=== PATIENT | male | born 1940 | race Caucasian/White ===

== ENCOUNTER 2020-01-21 10:06 | Day surgery (SDC) | payer MEDICARE, SELFPAY ==
[2020-01-14 12:08] VITALS: BMI 28.7
--- NOTE | 2020-01-20 13:43 | P.CONAN_ITS ---
Documented by User: Maureen Michaels 01/20/20 13:53 HPI - Anesthesia Eval Consult details Narrative: 79yo M for Colonoscopy PMFSH Past Medical History Medical History Anemia Aortic valvular disease Arthritis Atherosclerotic cardiovascular disease CHF (congestive heart failure) Chronic kidney disease Diabetes NAVA (dyspnea on exertion) Elevated cholesterol HTN (hypertension) Pacemaker Pulmonary hypertension Rhabdomyolysis due to statin therapy Surgical History Surgical History Hx of colonoscopy S/P excision of lipoma Status cardiac pacemaker Social History Social History Smoking Status: Former smoker Smoking Quit Date: 1994 Use of substances other than those prescribed or required for medical reasons: No Advance Directives: No Advance Directives Information Provided: Yes Advance Directives on File: No Recently lost weight without trying: No Meds Allergies Allergy/AdvReac Type Severity Reaction Status Date / Time amlodipine Allergy Unknown renal Verified 01/14/20 11:58 insuff in combo w/ statin rx carvedilol [From COREG] Allergy Unknown SHORTNESS Unverified 01/01/20 16:41 OF BREATH cephalexin [From KEFLEX] Allergy Unknown ANGIO EDEMA Unverified 01/01/20 16:41 lisinopril [LISINOPRIL] Allergy Unknown FACIAL Unverified 01/01/20 16:41 EDEMA simvastatin Allergy Unknown renal Verified 01/14/20 11:58 insufficiency Home Medications Medication Instructions Recorded Confirmed Type aspirin [Aspir-81] 81 mg PO DAILY 01/14/20 01/14/20 History atorvastatin 10 mg PO BEDTIME 01/14/20 01/14/20 History diltiazem HCl 120 mg PO BID 01/14/20 01/14/20 History doxazosin 4 mg PO DAILY 01/14/20 01/14/20 History epoetin donis [Procrit] 3,000 unit SUBCUT Q4W 01/14/20 01/14/20 History ferrous sulfate [FeroSul] 325 mg PO DAILY 01/14/20 01/14/20 History furosemide 40 mg PO BID 01/14/20 01/14/20 History hydralazine 50 mg PO BID 01/14/20 01/21/20 History labetalol 200 mg PO BID 01/14/20 01/21/20 History losartan 100 mg PO DAILY 01/14/20 01/14/20 History multivitamin 1 tab PO DAILY 01/14/20 01/14/20 History Exam Exam Date and Time: January 20, 2020 1343 Height,Weight and Vital Signs: Height 5 ft 6 in Weight 80.739 kg Pertinent Lab Results Pertinent Lab Results: Laboratory Tests 11/24/19 10:10 Sodium 141 Laboratory Tests 11/24/19 12/24/19 10:10 11:18 WBC 6.5 Hgb 8.3 L Hct 26.7 L Plt Count 202 Potassium 4.4 D Chloride 106 Bicarbonate 26 Anion Gap 13 BUN 122 H* D Creatinine 3.60 H Est GFR (Non-Af Amer) 17 Narrative Narrative: EKG 11/11/19 SB@51 with V pacing per cardiol note Pacer interro 11/19/19: DDDR,-50 AP 25%, 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% ECHO : LVEF 40-45%, Gr 2 DD, mon increased RV cavity, mild , mild MR, mild TR, severe pulm htn Stress 2019: inferior/inferoseptal infarct = med managed Assessment and Plan Assessment Anesthesia Assessment: Chart Reviewed Documented by User: Mik Hernandez 01/21/20 11:03 [facility] Past Medical History Medical History Anemia Aortic valvular disease Arthritis Atherosclerotic cardiovascular disease CHF (congestive heart failure) Chronic kidney disease Diabetes NAVA (dyspnea on exertion) Elevated cholesterol HTN (hypertension) Pacemaker Pulmonary hypertension Rhabdomyolysis due to statin therapy Surgical History Surgical History Hx of colonoscopy S/P excision of lipoma Status cardiac pacemaker Social History Social History Smoking Status: Former smoker Smoking Quit Date: 1994 Use of substances other than those prescribed or required for medical reasons: No Advance Directives: No Advance Directives Information Provided: Yes Advance Directives on File: No Recently lost weight without trying: No Meds Allergies Allergy/AdvReac Type Severity Reaction Status Date / Time amlodipine Allergy Unknown renal Verified 01/14/20 11:58 insuff in combo w/ statin rx carvedilol [From COREG] Allergy Unknown SHORTNESS Unverified 01/01/20 16:41 OF BREATH cephalexin [From KEFLEX] Allergy Unknown ANGIO EDEMA Unverified 01/01/20 16:41 lisinopril [LISINOPRIL] Allergy Unknown FACIAL Unverified 01/01/20 16:41 EDEMA simvastatin Allergy Unknown renal Verified 01/14/20 11:58 insufficiency Home Medications Medication Instructions Recorded Confirmed Type aspirin [Aspir-81] 81 mg PO DAILY 01/14/20 01/14/20 History atorvastatin 10 mg PO BEDTIME 01/14/20 01/14/20 History diltiazem HCl 120 mg PO BID 01/14/20 01/14/20 History doxazosin 4 mg PO DAILY 01/14/20 01/14/20 History epoetin donis [Procrit] 3,000 unit SUBCUT Q4W 01/14/20 01/14/20 History ferrous sulfate [FeroSul] 325 mg PO DAILY 01/14/20 01/14/20 History furosemide 40 mg PO BID 01/14/20 01/14/20 History hydralazine 50 mg PO BID 01/14/20 01/21/20 History labetalol 200 mg PO BID 01/14/20 01/21/20 History losartan 100 mg PO DAILY 01/14/20 01/14/20 History multivitamin 1 tab PO DAILY 01/14/20 01/14/20 History Exam Airway Mallampati Class: II TM Dist: >3cm Neck ROM: Full
[2020-01-21 10:31] VITALS: BP 151/56; PULSE 54; RESP 18; TEMP 36.2; O2SAT 100
[2020-01-21] MEDS: 0.9 % Sodium Chloride 1,000 ML 50 ML IVCONT (11:01)
--- NOTE | 2020-01-21 11:01 | P.CONAN_ITS ---
[facility] Past Medical History Medical History Anemia Aortic valvular disease Arthritis Atherosclerotic cardiovascular disease CHF (congestive heart failure) Chronic kidney disease Diabetes NAVA (dyspnea on exertion) Elevated cholesterol HTN (hypertension) Pacemaker Pulmonary hypertension Rhabdomyolysis due to statin therapy Surgical History Surgical History Hx of colonoscopy S/P excision of lipoma Status cardiac pacemaker Social History Social History Smoking Status: Former smoker Smoking Quit Date: 1994 Use of substances other than those prescribed or required for medical reasons: No Advance Directives: No Advance Directives Information Provided: Yes Advance Directives on File: No Recently lost weight without trying: No Meds Allergies Allergy/AdvReac Type Severity Reaction Status Date / Time amlodipine Allergy Unknown renal Verified 01/14/20 11:58 insuff in combo w/ statin rx carvedilol [From COREG] Allergy Unknown SHORTNESS Unverified 01/01/20 16:41 OF BREATH cephalexin [From KEFLEX] Allergy Unknown ANGIO EDEMA Unverified 01/01/20 16:41 lisinopril [LISINOPRIL] Allergy Unknown FACIAL Unverified 01/01/20 16:41 EDEMA simvastatin Allergy Unknown renal Verified 01/14/20 11:58 insufficiency Home Medications Medication Instructions Recorded Confirmed Type aspirin [Aspir-81] 81 mg PO DAILY 01/14/20 01/14/20 History atorvastatin 10 mg PO BEDTIME 01/14/20 01/14/20 History diltiazem HCl 120 mg PO BID 01/14/20 01/14/20 History doxazosin 4 mg PO DAILY 01/14/20 01/14/20 History epoetin donis [Procrit] 3,000 unit SUBCUT Q4W 01/14/20 01/14/20 History ferrous sulfate [FeroSul] 325 mg PO DAILY 01/14/20 01/14/20 History furosemide 40 mg PO BID 01/14/20 01/14/20 History hydralazine 50 mg PO BID 01/14/20 01/21/20 History labetalol 200 mg PO BID 01/14/20 01/21/20 History losartan 100 mg PO DAILY 01/14/20 01/14/20 History multivitamin 1 tab PO DAILY 01/14/20 01/14/20 History Exam Exam Date and Time: January 21, 2020 1101 Height,Weight and Vital Signs: Height 5 ft 6 in Weight 80.739 kg Last Vital Signs Temp 97.1 F 01/21/20 10:31 Pulse 54 01/21/20 10:31 Resp 18 01/21/20 10:31 BP 151/56 H 01/21/20 10:31 Pulse Ox 100 01/21/20 10:31 Airway Mallampati Class: II TM Dist: >3cm Neck ROM: Full
[2020-01-21 11:05] LABS: Glucose, Whole Blood 84 mg/dL (60-115)
[2020-01-21 12:27] VITALS: BP 122/54; PULSE 60; RESP 16; TEMP 36.4; O2SAT 99
--- NOTE | 2020-01-21 12:37 | PM.OP ---
Brief Operative Note Date of procedure: 01/21/20 Pre-op diagnosis: Screening Post-op diagnosis: other (Colon polyps, Diverticulosis, Internal hemorrhoids) Procedure: Colonoscopy to cecum and TI with biopsies and placement of a single resolution clip on the appendiceal orifice polyp site. Surgeon: Deven Mccallum Anesthesia: MAC Pathology: other (A. Appendiceal orifice polyp B. Polyp at 30cm.) Condition: stable Disposition: PACU
[2020-01-21 12:42] VITALS: BP 137/60; PULSE 57; RESP 13; O2SAT 100
[2020-01-21 12:56] VITALS: BP 143/65; PULSE 57; RESP 13; TEMP 36.5; O2SAT 98
--- NOTE | 2020-01-21 13:11 | OP_ITS ---
SURGEON: Deven Mccallum MD PREOPERATIVE DIAGNOSIS: POSTOPERATIVE DIAGNOSIS: PROCEDURE PERFORMED: Colonoscopy to the cecum and terminal ileum with biopsies, and placement of a single resolution clip. Full consent has been obtained from him for this, including risks of bleeding and perforation. ESTIMATED BLOOD LOSS: COMPLICATIONS: ANESTHESIA: Monitored anesthesia care. ASSISTANTS: SPECIMENS: PREOPERATIVE DIAGNOSES: Colorectal cancer screening and personal history of tubular adenoma of the colon. POSTOPERATIVE DIAGNOSES: Colorectal cancer screening and personal history of tubular adenoma of the colon, colon polyps, diverticulosis and internal hemorrhoids. DESCRIPTION OF PROCEDURE: The patient was placed in the left lateral decubitus position. The digital rectal exam revealed no abnormalities. The 115 network disks video pediatric colonoscope was entered into the rectum and advanced easily to the cecum. Once in the cecum, I did identify cecal pouch with appendiceal orifice and a normal-appearing ileocecal valve. The terminal ileum was cannulated and appeared normal. The scope was withdrawn back in the colon. The entire cecum was well visualized. Initially, the appendiceal orifice appeared very normal. However, with some peristalsis, a polypoid lesion came out of the appendiceal orifice. This appeared to be grossly adenomatous. It was somewhat soft and friable. In manipulating it with the cold biopsy forceps, I was able to pull it out of the appendiceal orifice somewhat and visualized what appeared to be a stalk. I initially obtained several biopsies from the polyp itself, which led to a fair amount of persistent oozing of blood. At that point, even though at times I was able to visualize a stalk coming out of the appendiceal orifice, I did not feel comfortable in snaring it and removing it given what I thought would be an increased risk of a perforation in that area. As such, I did place a single clip at the base of the head of the polyp on the stalk itself, as best I could tell in visualizing it. Once the clip was applied, all the bleeding stopped. At that point, I did not obtain any further biopsies and opted not to snare it given the location and until we see what type of tissue we are dealing with. The remainder of the cecum appeared normal. The scope was then slowly withdrawn assessing all mucosal surfaces carefully. Preparation was excellent. In the transverse colon were the previously placed submucosal ink markings, but without any sign of polypoid tissue in that area. At 30 cm, was a flat approximately 3 or 4 mm polyp, which was biopsied and completely removed with cold biopsy forceps. There was a moderate amount of sigmoid diverticulosis. In the rectum, scope was retroflexed visualizing internal hemorrhoids, but no other pathology. The rectal mucosa appeared normal. The scope was straightened out and withdrawn from the patient. He tolerated the procedure well and was returned to the recovery area in stable condition. IMPRESSION: 1. Appendiceal orifice polyp, status post biopsy and placement of 1 resolution clip. 2. Colon polyp, status post biopsy and removal. 3. Diverticulosis. 4. Internal hemorrhoids. PLAN: The results of the biopsies will be checked. In regard to the appendiceal orifice polyp, we will have to decide, if indeed it is adenomatous tissue, how best to further assess this and remove it. Again, I am somewhat hesitant to remove it endoscopically given the potential for perforation, but now that a clip is placed and we might be able to do that. The other option, particularly if there is any worrisome pathology noted such as high-grade dysplasia or obviously carcinoma, would be to have a limited surgical resection. I advised him not to use any aspirin nor iron for 1 more week. He will be followed up in the office once we have the results of the pathology. This has been discussed with him. MD TARA Garsia/SHRUTHI / [id number] MTDD
--- NOTE | 2020-01-21 14:10 | HO.POSTANES ---
Post Anesthesia Evaluation Post Anesthesia Evaluation Vital Signs: Vital Signs Temp Pulse Resp BP Pulse Ox 01/21/20 12:56 97.7 F 57 13 143/65 H 98 01/21/20 12:42 57 13 137/60 100 01/21/20 12:27 97.5 F 60 16 122/54 L 99 01/21/20 10:31 97.1 F 54 18 151/56 H 100 Anesthesia: Monitored Mental Status: Awake Pain Control: Satisfactory Nausea/Vomiting: None Hydration: Adequate Anesthesia-Related Issues: No Anes. Related Issues
== END 2020-01-21 13:45 | disposition home or self-care (01) ==
PROVIDERS: PCP Family Medicine; Visit Provider Internal Medicine
PROC: 0DJD8ZZ Inspection of Lower Intestinal Tract, Via Natural or Artificial Opening Endoscopic (ICD-10-PCS; CPT 45378; principal; 2020-01-21 11:40)
DX: Z12.11 Encounter for screening for malignant neoplasm of colon (principal); Z86.010 Personal history of colon polyps; D12.1 Benign neoplasm of appendix; K63.5 Polyp of colon; K57.30 Diverticulosis of large intestine without perforation or abscess without bleeding; K64.8 Other hemorrhoids; E11.22 Type 2 diabetes mellitus with diabetic chronic kidney disease; I13.0 Hypertensive heart and chronic kidney disease with heart failure and stage 1 through stage 4 chronic kidney disease, or unspecified chronic kidney disease; N18.9 Chronic kidney disease, unspecified; I50.9 Heart failure, unspecified; D64.9 Anemia, unspecified; Z95.0 Presence of cardiac pacemaker; Z87.891 Personal history of nicotine dependence; Z79.899 Other long term (current) drug therapy; Z79.82 Long term (current) use of aspirin; Z88.8 Allergy status to other drugs, medicaments and biological substances
CPT/HCPCS: 45380; 82947; 88305

== ENCOUNTER 2020-02-05 11:12 | Outpatient (REF) | payer MEDICARE, SELFPAY ==
[2020-02-05 13:58] LABS: Basophils Percent Auto 0.5 % (0-2); Eosinophils Absolute Auto 0.1 X10*3/uL (0.0-0.4); Eosinophils Percent Auto 1.7 % (0-4); Hematocrit 26.8 % (42-52); Hemoglobin 8.4 g/dl (14.0-18.0); Imm Gran Abs Auto 0.03 X10*3/uL (0.00-0.03); Imm Gran Pct Auto 0.5 % (0.0-0.4); Lymphocytes Absolute Auto 0.3 X10*3/uL (1.2-4.9); Lymphocytes Percent Auto 5.2 % (20-40); MANUAL DIFF FLAG SCAN; Mean Corpuscular HGB Conc 31.3 g/dl (31.0-36.0); Mean Corpuscular Hemoglobin 28.7 pg (27.0-33.0); Mean Corpuscular Volume 91.5 fL (80-98); Mean Platelet Volume 11.4 fL (9.4-12.4); Monocytes Absolute Auto 0.6 X10*3/uL (0.1-1.2); Monocytes Percent Auto 10.7 % (2-11); Neutrophils Absolute Auto 4.9 X10*3/uL (2.0-8.3); Neutrophils Percent Auto 81.4 % (45-73); Platelet Count 179 X10*3/uL (160-400); Red Blood Count 2.93 X10*6/uL (4.60-5.80); Red Cell Distribution Width 16.4 % (11.0-16.0); SCAN SMEAR FLAG 1
[2020-02-05 14:12] LABS: Anion Gap 15 (12-20); Carbon Dioxide 23 mmol/L (22-29); Chloride 107 mmol/L (96-108); Potassium 4.1 mmol/l (3.3-5.1); Sodium 141 mmol/L (135-145)
[2020-02-05 14:25] LABS: SLIDE REVIEW VERIFIED
[2020-02-05 14:43] LABS: Blood Urea Nitrogen 123 mg/dL (9-16); Estimated Glomerular Filt Rate 14
== END 2020-02-05 11:13 | disposition home or self-care (01) ==
LOC: HO.10HDL 11:12
PROVIDERS: Visit Provider Internal Medicine Hypertension Specialist
DX: I13.10 Hypertensive heart and chronic kidney disease without heart failure, with stage 1 through stage 4 chronic kidney disease, or unspecified chronic kidney disease (principal); N18.9 Chronic kidney disease, unspecified; D63.1 Anemia in chronic kidney disease
CPT/HCPCS: 36415; 80051; 82565; 84520; 85025

== ENCOUNTER 2020-03-15 10:35 | Outpatient (REF) | payer MEDICARE, SELFPAY ==
[2020-03-15 13:48] LABS: Basophils Absolute Auto 0.1 X10*3/uL (0.0-0.2); Eosinophils Absolute Auto 0.2 X10*3/uL (0.0-0.4); Eosinophils Percent Auto 2.9 % (0-4); Hematocrit 27.5 % (42-52); Hemoglobin 8.6 g/dl (14.0-18.0); Imm Gran Abs Auto 0.02 X10*3/uL (0.00-0.03); Imm Gran Pct Auto 0.3 % (0.0-0.4); Lymphocytes Absolute Auto 0.3 X10*3/uL (1.2-4.9); Lymphocytes Percent Auto 5.1 % (20-40); MANUAL DIFF FLAG SCAN; Mean Corpuscular HGB Conc 31.3 g/dl (31.0-36.0); Mean Corpuscular Hemoglobin 28.9 pg (27.0-33.0); Mean Corpuscular Volume 92.3 fL (80-98); Mean Platelet Volume 11.1 fL (9.4-12.4); Monocytes Absolute Auto 0.6 X10*3/uL (0.1-1.2); Monocytes Percent Auto 9.1 % (2-11); Neutrophils Absolute Auto 5.1 X10*3/uL (2.0-8.3); Neutrophils Percent Auto 81.6 % (45-73); Platelet Count 160 X10*3/uL (160-400); Red Blood Count 2.98 X10*6/uL (4.60-5.80); Red Cell Distribution Width 17.2 % (11.0-16.0); SCAN SMEAR FLAG 1; White Blood Count 6.3 X10*3/uL (4.8-10.8)
[2020-03-15 14:10] LABS: SLIDE REVIEW VERIFIED
[2020-03-15 14:58] LABS: Anion Gap 18 (12-20); Calcium 8.3 mg/dL (8.4-10.2); Carbon Dioxide 23 mmol/L (22-29); Chloride 105 mmol/L (96-108); Potassium 4.7 mmol/l (3.3-5.1); Sodium 141 mmol/L (135-145)
[2020-03-15 15:14] LABS: Blood Urea Nitrogen 125 mg/dL (9-16); Estimated Glomerular Filt Rate 12
== END 2020-03-15 10:36 | disposition home or self-care (01) ==
LOC: HO.10HDL 10:35
PROVIDERS: Visit Provider Internal Medicine Hypertension Specialist
DX: I13.10 Hypertensive heart and chronic kidney disease without heart failure, with stage 1 through stage 4 chronic kidney disease, or unspecified chronic kidney disease (principal); E10.21 Type 1 diabetes mellitus with diabetic nephropathy; I12.9 Hypertensive chronic kidney disease with stage 1 through stage 4 chronic kidney disease, or unspecified chronic kidney disease; D63.1 Anemia in chronic kidney disease
CPT/HCPCS: 36415; 80051; 82310; 82565; 84520; 85025

== ENCOUNTER → 2020-04-20 14:35 | Outpatient (BNVA) | payer MEDICARE, SELFPAY | PROVIDERS: PCP Family Medicine; Visit Provider Surgery Vascular Surgery | DX: E11.22 Type 2 diabetes mellitus with diabetic chronic kidney disease (principal); I12.9 Hypertensive chronic kidney disease with stage 1 through stage 4 chronic kidney disease, or unspecified chronic kidney disease; N18.4 Chronic kidney disease, stage 4 (severe) | CPT/HCPCS: 99202 ==

== ENCOUNTER → 2020-04-21 11:05 | Outpatient (REF) | payer MEDICARE, SELFPAY ==
--- NOTE | 2020-04-21 11:30 | CA_ITS ---
Transthoracic Echocardiogram Patient (Last, First, Middle): George Levy N Gender: Male Date of : 1940 Age: 79 Procedure Date: 04/21/2020 Procedure Type: Transthoracic Echocardiogram Location: OP Height: 167.64 cm Weight: 81.65 kg BSA: 1.91 m2 Heart Rate: bpm BP: 125 / 61 mmHg Work Over Rig Operator: DSJillian Referring MD: Pro Alexander MD Symptoms: I38 VALVULAR HEART DISEASE I27.20 PULMONARY HTN Conclusions: - 1. [id number] LV systolic dysfunction mild LVH with grade 3 diastolic dysfunction 2. Moderate biatrial enlargement and moderate RV enlargement 3. Mild aortic stenosis 4. At least moderate mitral regurgitation 5. Moderately elevated right ventricular systolic pressure 6. No pericardial effusion Findings Left Ventricle Normal left ventricular cavity size. There is mildly increased left ventricular wall thickness. The left ventricular systolic function is mild to moderately decreased. The visually estimated ejection fraction is between 40-45%. Spectral Doppler is indicative of a restrictive filling pattern. E/E prime ratio is >15, consistent with elevated filling pressures. Evidence suggests grade III (severe) diastolic dysfunction. Right Ventricle Moderately increased right ventricular cavity size. There is low normal right ventricular systolic function. Atria The left atrium is moderately dilated. There is no evidence of interatrial shunt. The right atrium is moderately dilated. Aortic Valve There is mild calcification of the aortic valve. There is moderate thickening of the aortic valve. There is mild aortic valve stenosis. The aortic valve area is 1.62 cm2. There is no aortic valve regurgitation. Mitral Valve There is mild anterior and posterior mitral leaflet thickening. There is moderate mitral valve regurgitation. There is no mitral valve stenosis. Pulmonic Valve The pulmonic valve was not well visualized. Tricuspid Valve Normal tricuspid valve structure. There is mild to moderate tricuspid valve regurgitation. Mildly elevated right atrial pressure. Moderate pulmonary hypertension is present. Venous The inferior vena cava is mildly dilated and collapses less than 50% with inspiration. Pericardium/Pleural There is no evidence of pericardial effusion. Prior Study Comparison Changes noted compared to prior study dated: 10/28/2019. RV systolic pressure measured is lower. Diastolic dysfunctionappears to be grade 3. mitral regurgitation appears to be worse Measurements 2D Linear Measurements IVSd: 1.29 0.6-0.9/0.6-1.0 cm LVIDd: 5.56 3.9-5.3/4.2-5.9 cm LVIDd Index: 2.91 2.4-3.2/2.2-3.1 cm/m2 LVIDs: 4.26 2.0-3.6 cm LVPWd: 1.07 0.7-1.1 cm LA Diam: 4.60 2.7-3.8/3.0-4.0 cm LAIDs Index: 2.41 1.5-2.3 cm/m2 LV Mass: 337.91 67-162/88-224 g LV Mass Index: 176.92 43-95/49-115 g/m2 LVOT Diam: 2.20 3.0+(-)1.3 cm 2D Systolic Function EF 4C: 34.90 >55% EF 2C: 58.10 >55% Mitral Valve MV Pk E: 1.10 MV PK A: 0.33 MV Decel Time: 187.00 E/A: 3.40 E'Lateral: 4.45 E'Medial: 6.48 E/E' Med: 17.00 E/E' Lat: 24.70 PHT: 55.00 MVA PHT: 4.00 Decel [place]: 5.90 MR VTI: 1.96 MR Alias [place]: 0.29 Aortic Valve AoV Pk [place]: 1.94 AoV Pk Grad: 15.00 KARLA Cont.VTI: 1.62 LVOT LVOT Pk [place]: 0.83 LVOT Mn [place]: 0.61 LVOT VTI: 0.22 LVOT Pk Grad: 3.00 LVOT Mn Grad: 2.00 LVOT Diam: 2.20 LVOT Area: 3.80 Diastolic Function MV Pk E: 1.10 MV Pk A: 0.33 E/A: 3.40 E'Medial: 6.48 E/E' Med: 17.00 E' Laterial: 4.45 E/E' Lat: 24.70 Tricuspid Valve TR Pk [place]: 3.26 TR Pk Grad: 43.00 RA Press: 8.00 RVSP: 51.00 Great Vessels Aorta Ao Asc: 3.50 2.1-3.4 cm Updated in Other Vendor System with Status of Final Reynaldo Ferreira MD electronically signed on 04/21/2020 1:31:17 PM with status of Final
== END ==
LOC: HO.CARD 11:05
PROVIDERS: PCP Family Medicine; Visit Provider Internal Medicine
DX: I38 Endocarditis, valve unspecified (principal); I27.20 Pulmonary hypertension, unspecified
CPT/HCPCS: 93306

== ENCOUNTER 2020-04-26 06:00 | Day surgery (SDC) | payer MEDICARE, SELFPAY ==
--- NOTE | 2020-04-23 09:51 | HO.ANESPROP2 ---
Documented by User: Maureen Michaels 04/23/20 11:56 HPI - Anesthesia Eval Consult details Narrative: 79yo M for AV Fistula Creation,left arm s/p Colonoscopy with MAC 01/2020 [facility] Past Medical History Medical History (Updated 04/23/20 @ 09:59 by Maureen Michaels) Anemia Aortic valvular disease Arthritis Atherosclerotic cardiovascular disease CHF (congestive heart failure) Chronic kidney disease Diabetes NAVA (dyspnea on exertion) Elevated cholesterol HTN (hypertension) Pacemaker Pulmonary hypertension Rhabdomyolysis due to statin therapy Surgical History Surgical History (Updated 04/22/20 @ 13:36 by Tamia Morales) Hx of colonoscopy S/P excision of lipoma Status cardiac pacemaker Social History Social History Smoking Status: Former smoker Use of substances other than those prescribed or required for medical reasons: No Advance Directives: Yes Advance Directives on File: Yes Advance Directives Date on File: 04/26/20 Meds Allergies Allergy/AdvReac Type Severity Reaction Status Date / Time cephalexin [From KEFLEX] Allergy Severe ANGIO EDEMA Verified 04/26/20 06:17 lisinopril [LISINOPRIL] Allergy Severe FACIAL Verified 04/26/20 06:17 EDEMA simvastatin Allergy Severe renal Verified 04/26/20 06:17 insufficiency carvedilol [From COREG] Allergy Intermediate SHORTNESS Verified 04/26/20 06:17 OF BREATH amlodipine Allergy Mild renal Verified 04/26/20 06:18 insuff in combo w/ statin rx Home Medications Medication Instructions Recorded Confirmed Type aspirin [Aspir-81] 81 mg PO DAILY 01/14/20 04/22/20 History atorvastatin 10 mg PO BEDTIME 01/14/20 04/22/20 History diltiazem HCl 120 mg PO BID 01/14/20 04/22/20 History doxazosin 4 mg PO DAILY 01/14/20 04/22/20 History epoetin donis [Procrit] 3,000 unit SUBCUT Q4W 01/14/20 04/22/20 History ferrous sulfate [FeroSul] 325 mg PO DAILY 01/14/20 04/22/20 History furosemide 40 mg PO BID 01/14/20 04/22/20 History hydralazine 50 mg PO BID 01/14/20 04/22/20 History labetalol 200 mg PO BID 01/14/20 04/22/20 History losartan 100 mg PO DAILY 01/14/20 04/22/20 History multivitamin 1 tab PO DAILY 01/14/20 04/22/20 History blood sugar diagnostic #10 ea 04/20/20 History lancets 33 gauge #100 ea 04/20/20 History Exam Exam Date and Time: April 23, 2020 0951 Pertinent Lab Results Pertinent Lab Results: Laboratory Tests 03/15/20 03/15/20 10:40 10:40 WBC 6.3 Hgb 8.6 L Hct 27.5 L Plt Count 160 Sodium 141 Potassium 4.7 Chloride 105 Carbon Dioxide 23 BUN 125 H* Creatinine 4.84 H* Narrative Narrative: EKG 11/11/19 SB@51 with V pacing per cardiol note Pacer interro 11/19/19: DDDR,-50 AP 25%, 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 Battery status is 10.2 years. Lead parameters appear to be within normal limits. Atrial pacing 29% and ventricular pacing 99%. No significant atrial arrhythmias. ECHO 04/2020: Conclusions: - 1. [id number] LV systolic dysfunction mild LVH with grade 3 diastolic dysfunction 2. Moderate biatrial enlargement and moderate RV enlargement 3. Mild aortic stenosis 4. At least moderate mitral regurgitation 5. Moderately elevated right ventricular systolic pressure 6. No pericardial effusion Stress/MIBI 04/2019: Likely nml perfusion, Gated LVEF 57%, no transient ischemic dilation; EKG nondiagnostic for ischemia Documented by User: Adelaide Najera 04/26/20 07:54 HPI - Anesthesia Eval Consult details Narrative: 79 yo male patient here for left arm AV fistula creation [facility] Past Medical History Medical History (Updated 04/23/20 @ 09:59 by Maureen Michaels) Anemia Aortic valvular disease Arthritis Atherosclerotic cardiovascular disease CHF (congestive heart failure) Chronic kidney disease Diabetes NAVA (dyspnea on exertion) Elevated cholesterol HTN (hypertension) Pacemaker Pulmonary hypertension Rhabdomyolysis due to statin therapy Family History Family history of problems with anesthesia: No Surgical History Surgical History (Updated 04/22/20 @ 13:36 by Tamia Morales) Hx of colonoscopy S/P excision of lipoma Status cardiac pacemaker History of Problems with Anesthesia: No Social History Social History Smoking Status: Former smoker Use of substances other than those prescribed or required for medical reasons: No Advance Directives: Yes Advance Directives on File: Yes Advance Directives Date on File: 04/26/20 Meds Allergies Allergy/AdvReac Type Severity Reaction Status Date / Time cephalexin [From KEFLEX] Allergy Severe ANGIO EDEMA Verified 04/26/20 06:17 lisinopril [LISINOPRIL] Allergy Severe FACIAL Verified 04/26/20 06:17 EDEMA simvastatin Allergy Severe renal Verified 04/26/20 06:17 insufficiency carvedilol [From COREG] Allergy Intermediate SHORTNESS Verified 04/26/20 06:17 OF BREATH amlodipine Allergy Mild renal Verified 04/26/20 06:18 insuff in combo w/ statin rx Home Medications Medication Instructions Recorded Confirmed Type aspirin [Aspir-81] 81 mg PO DAILY 01/14/20 04/22/20 History atorvastatin 10 mg PO BEDTIME 01/14/20 04/22/20 History diltiazem HCl 120 mg PO BID 01/14/20 04/22/20 History doxazosin 4 mg PO DAILY 01/14/20 04/22/20 History epoetin donis [Procrit] 3,000 unit SUBCUT Q4W 01/14/20 04/22/20 History ferrous sulfate [FeroSul] 325 mg PO DAILY 01/14/20 04/22/20 History furosemide 40 mg PO BID 01/14/20 04/22/20 History hydralazine 50 mg PO BID 01/14/20 04/22/20 History labetalol 200 mg PO BID 01/14/20 04/22/20 History losartan 100 mg PO DAILY 01/14/20 04/22/20 History multivitamin 1 tab PO DAILY 01/14/20 04/22/20 History blood sugar diagnostic #10 ea 04/20/20 History lancets 33 gauge #100 ea 04/20/20 History Exam Height,Weight and Vital Signs: Vital Signs Temp Pulse Resp BP Pulse Ox 04/26/20 06:32 97.6 F 55 16 124/48 L 100 Pertinent Lab Results Pertinent Lab Results: POC 98 Airway Mallampati Class: III TM Dist: >3cm Neck ROM: Full Heart: RRR Lungs: CTAB Assessment and Plan Assessment Anesthesia Assessment: Anesthesia Plan Discussed and Chart Reviewed Final Anesthetic Review NPO: Yes ASA Class: III Final Preanesthetic Review: No Changes in Pt Med Stat, Meds/Allgs Chart Reviewed and Consent Obtained/Reviewed Patient Risk: High Procedure Risk: Intermediate Assessment/Block/Sedation in SS: Assess/Block/Sedation-SS Anesthetic Plan Anesthetic Plan: GA Disposition: Standard PACU
[2020-04-26] VITALS (9 sets, daily range): BP systolic 124–147; BP diastolic 48–66; PULSE 50–55; RESP 16–18; TEMP 36.1–36.4; O2SAT 93–100; BMI 29.0
[2020-04-26 06:45] LABS: INTERNATIONAL NORM RATIO 1.2 (0.9-1.1); Prothrombin Time 14.3 SEC (10.8-13.0)
[2020-04-26 06:50] LABS: Hematocrit 25.2 % (42-52); Hemoglobin 7.7 g/dl (14.0-18.0); Mean Corpuscular HGB Conc 30.6 g/dl (31.0-36.0); Mean Corpuscular Hemoglobin 28.8 pg (27.0-33.0); Mean Corpuscular Volume 94.4 fL (80-98); Mean Platelet Volume 11.2 fL (9.4-12.4); Platelet Count 148 X10*3/uL (160-400); Red Blood Count 2.67 X10*6/uL (4.60-5.80); Red Cell Distribution Width 16.9 % (11.0-16.0); White Blood Count 6.6 X10*3/uL (4.8-10.8)
[2020-04-26] MEDS: 0.9 % Sodium Chloride 1,000 ML 50 ML IVCONT (06:57)
[2020-04-26] MEDS: vancomycin HCL 1,000 MG in 0.9 % Sodium Chloride 250 ML 270 MG IV (06:58)
[2020-04-26 07:03] LABS: Glucose, Whole Blood 98 mg/dL (60-115)
[2020-04-26 07:24] LABS: Anion Gap 18 (12-20); Calcium 8.6 mg/dL (8.4-10.2); Carbon Dioxide 19 mmol/L (22-29); Chloride 109 mmol/L (96-108); Glucose Random 100 mg/dL (60-115); Potassium 4.7 mmol/l (3.3-5.1); Sodium 141 mmol/L (135-145)
[2020-04-26 07:41] LABS: Blood Urea Nitrogen 130 mg/dL (9-16); Creatinine Clr Calc Pharmacy 14.5; Estimated Glomerular Filt Rate 14
--- NOTE | 2020-04-26 10:35 | MHC.SHP ---
Pre-Procedural Eval Section B Chief Complaint: chronic kidney disease Allergies: Allergies Allergy/AdvReac Type Severity Reaction Status Date / Time cephalexin [From KEFLEX] Allergy Severe ANGIO EDEMA Verified 04/26/20 06:17 lisinopril [LISINOPRIL] Allergy Severe FACIAL Verified 04/26/20 06:17 EDEMA simvastatin Allergy Severe renal Verified 04/26/20 06:17 insufficiency carvedilol [From COREG] Allergy Intermediate SHORTNESS Verified 04/26/20 06:17 OF BREATH amlodipine Allergy Mild renal Verified 04/26/20 06:18 insuff in combo w/ statin rx Plan I have reviewed the history and physical and performed a pertinent physical examination on my patient. No changes have occurred unless specified.
[2020-04-26] MEDS: Acetaminophen 325 MG TABLET 650 MG PO (10:58)
[2020-04-26] MEDS: oxyCODONE HCl Immed Release 5 MG TABLET PO (10:58)
--- NOTE | 2020-04-26 11:55 | OP_ITS ---
SURGEON: Shimon Moe MD INDICATIONS: George is a 79-year-old gentleman with chronic renal insufficiency. He presents for permanent dialysis access. Risks, benefits, and complications were discussed in detail with the patient. The patient understood and consented. PREOPERATIVE DIAGNOSIS: POSTOPERATIVE DIAGNOSIS: PROCEDURE PERFORMED: Creation of left arm fistula, left upper extremity (Qing type). ESTIMATED BLOOD LOSS: Minimal. COMPLICATIONS: ANESTHESIA: General. ASSISTANTS: SPECIMENS: None. PREPROCEDURE DIAGNOSIS: Chronic renal insufficiency. POSTPROCEDURE DIAGNOSIS: Chronic renal insufficiency. DESCRIPTION OF PROCEDURE: The patient was brought to the operating room, prior to which a time-out was called for patient identification and site verification. Prior to the procedure, the artery and vein have been marked out under ultrasound guidance. Once this was done, we made a longitudinal incision between the radial artery and the cephalic vein and this was made approximately 6 cm in length. Once this was done, we first dissected out the cephalic vein, which had 2 branches. We took the larger of the 2 branches and ligated a smaller branch. Then, we turned our attention to the radial artery. Once this was dissected clear, we isolated this with silastic loops. 3000 units of systemic heparin was administered. We opened up the artery. We flushed forward and backwards and the cephalic vein was anastomosed in an end-to-side manner and with a 6-0 Prolene, prior to closure, this was flushed clear. Once this was accomplished, we did not obtain an excellent thrill . This was once again reopened and re-anastomosed. When we closed again, the vein did fill, it was pulsatile, but it was open. Adequate hemostasis was achieved. Deep layer was reapproximated using 2-0 Vicryl, superficial layer with 3-0 Vicryl, and finally skin with 4-0 Monocryl. Steri-Strips and sterile dressing was applied. At the end of the case, sponge, needle, instrument counts were correct. The patient tolerated the procedure well, returned to Recovery with stable vitals. DRAINS: None. MD HARJEET Mello/LEROYL / [id number]
--- NOTE | 2020-04-26 12:05 | HO.POSTANES ---
Post Anesthesia Evaluation Post Anesthesia Evaluation Vital Signs: Vital Signs Temp Pulse Resp BP Pulse Ox 04/26/20 11:56 97.2 F 51 17 144/65 H 97 04/26/20 11:37 97.2 F 51 17 144/65 H 97 04/26/20 11:22 53 18 147/66 H 96 04/26/20 11:07 50 18 144/60 H 95 04/26/20 10:52 50 17 137/58 L 93 04/26/20 10:47 50 17 132/58 L 96 04/26/20 10:42 50 17 136/61 94 04/26/20 10:37 97.0 F 50 18 132/50 L 96 04/26/20 06:32 97.6 F 55 16 124/48 L 100 Anesthesia: Monitored and General LMA Mental Status: Awake Pain Control: Satisfactory Nausea/Vomiting: None Hydration: Adequate Anesthesia-Related Issues: No Anes. Related Issues
--- NOTE | 2020-05-14 08:00 | W.PM.OPN ---
Operative Note Operative Note Date of Service: 04/26/20 Narrative: please see telephone dictated operative note in system MD HARJEET Mello/SHRUTHI / [id number]
== END 2020-04-26 12:18 | disposition home or self-care (01) ==
PROVIDERS: PCP Family Medicine; Visit Provider Surgery Vascular Surgery
PROC: (CPT 36821; principal; 2020-04-26 07:30)
DX: I13.2 Hypertensive heart and chronic kidney disease with heart failure and with stage 5 chronic kidney disease, or end stage renal disease (principal); E11.22 Type 2 diabetes mellitus with diabetic chronic kidney disease; N18.6 End stage renal disease; I50.9 Heart failure, unspecified; Z79.82 Long term (current) use of aspirin; Z79.899 Other long term (current) drug therapy; Z95.0 Presence of cardiac pacemaker; Z87.891 Personal history of nicotine dependence
CPT/HCPCS: 36821; 36415; 80048; 82947; 85027; 85610; 85730; J1100; J2405; J3010; J3370

== ENCOUNTER 2020-04-28 14:30 | Day surgery (SDC) | payer MEDICARE, SELFPAY ==
[2020-04-22 13:22] VITALS: BMI 29.0
--- NOTE | 2020-04-27 09:37 | HO.ANESPROP2 ---
Documented by User: Maureen Michaels 04/27/20 09:51 HPI - Anesthesia Eval Consult details Narrative: 79yo M for Colonoscopy s/p AV fistula creation on left 04/26/20 with CLARISSE LOPES Past Medical History Medical History (Updated 04/23/20 @ 09:59 by Maureen Michaels) Anemia Aortic valvular disease Arthritis Atherosclerotic cardiovascular disease CHF (congestive heart failure) Chronic kidney disease Diabetes NAVA (dyspnea on exertion) Elevated cholesterol HTN (hypertension) Pacemaker Pulmonary hypertension Rhabdomyolysis due to statin therapy Surgical History Surgical History (Updated 04/22/20 @ 13:36 by Tamia Morales) Hx of colonoscopy S/P excision of lipoma Status cardiac pacemaker Social History Social History Smoking Status: Former smoker Use of substances other than those prescribed or required for medical reasons: No Advance Directives: Yes Advance Directives on File: Yes Advance Directives Date on File: 04/26/20 Meds Allergies Allergy/AdvReac Type Severity Reaction Status Date / Time cephalexin [From KEFLEX] Allergy Severe ANGIO EDEMA Verified 04/26/20 06:17 lisinopril [LISINOPRIL] Allergy Severe FACIAL Verified 04/26/20 06:17 EDEMA simvastatin Allergy Severe renal Verified 04/26/20 06:17 insufficiency carvedilol [From COREG] Allergy Intermediate SHORTNESS Verified 04/26/20 06:17 OF BREATH amlodipine Allergy Mild renal Verified 04/26/20 06:18 insuff in combo w/ statin rx Home Medications Medication Instructions Recorded Confirmed Type aspirin [Aspir-81] 81 mg PO DAILY 01/14/20 04/22/20 History atorvastatin 10 mg PO BEDTIME 01/14/20 04/22/20 History diltiazem HCl 120 mg PO BID 01/14/20 04/22/20 History doxazosin 4 mg PO DAILY 01/14/20 04/22/20 History epoetin donis [Procrit] 3,000 unit SUBCUT Q4W 01/14/20 04/22/20 History ferrous sulfate [FeroSul] 325 mg PO DAILY 01/14/20 04/22/20 History furosemide 40 mg PO BID 01/14/20 04/22/20 History hydralazine 50 mg PO BID 01/14/20 04/22/20 History labetalol 200 mg PO BID 01/14/20 04/28/20 History losartan 100 mg PO DAILY 01/14/20 04/22/20 History multivitamin 1 tab PO DAILY 01/14/20 04/22/20 History blood sugar diagnostic #10 ea 04/20/20 History lancets 33 gauge #100 ea 04/20/20 History Exam Exam Date and Time: April 27, 2020 0937 Height,Weight and Vital Signs: Height 5 ft 6 in Weight 81.647 kg Pertinent Lab Results Pertinent Lab Results: Laboratory Tests 04/26/20 04/26/20 06:14 06:14 WBC 6.6 Hgb 7.7 L Hct 25.2 L Plt Count 148 L Sodium 141 Potassium 4.7 Chloride 109 H Carbon Dioxide 19 L BUN 130 H* Creatinine 4.27 H* Narrative Narrative: EKG 11/11/19 SB@51 with V pacing per cardiol note Pacer interro 11/19/19: DDDR,-50 AP 25%, 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 Battery status is 10.2 years. Lead parameters appear to be within normal limits. Atrial pacing 29% and ventricular pacing 99%. No significant atrial arrhythmias. ECHO 04/2020: Conclusions: - 1. Pzwz-pd-guzucelo LV systolic dysfunction mild LVH with grade 3 diastolic dysfunction 2. Moderate biatrial enlargement and moderate RV enlargement 3. Mild aortic stenosis 4. At least moderate mitral regurgitation 5. Moderately elevated right ventricular systolic pressure 6. No pericardial effusion Stress/MIBI 04/2019: Likely nml perfusion, Gated LVEF 57%, no transient ischemic dilation; EKG nondiagnostic for ischemia Assessment and Plan Assessment Anesthesia Assessment: Chart Reviewed Documented by User: Xi Chairez 04/28/20 11:08 [facility] Past Medical History Medical History (Updated 04/23/20 @ 09:59 by Maureen Michaels) Anemia Aortic valvular disease Arthritis Atherosclerotic cardiovascular disease CHF (congestive heart failure) Chronic kidney disease Diabetes NAVA (dyspnea on exertion) Elevated cholesterol HTN (hypertension) Pacemaker Pulmonary hypertension Rhabdomyolysis due to statin therapy Surgical History Surgical History (Updated 04/22/20 @ 13:36 by Tamia Morales) Hx of colonoscopy S/P excision of lipoma Status cardiac pacemaker Social History Social History Smoking Status: Former smoker Use of substances other than those prescribed or required for medical reasons: No Advance Directives: Yes Advance Directives on File: Yes Advance Directives Date on File: 04/26/20 Meds Allergies Allergy/AdvReac Type Severity Reaction Status Date / Time cephalexin [From KEFLEX] Allergy Severe ANGIO EDEMA Verified 04/26/20 06:17 lisinopril [LISINOPRIL] Allergy Severe FACIAL Verified 04/26/20 06:17 EDEMA simvastatin Allergy Severe renal Verified 04/26/20 06:17 insufficiency carvedilol [From COREG] Allergy Intermediate SHORTNESS Verified 04/26/20 06:17 OF BREATH amlodipine Allergy Mild renal Verified 04/26/20 06:18 insuff in combo w/ statin rx Home Medications Medication Instructions Recorded Confirmed Type aspirin [Aspir-81] 81 mg PO DAILY 01/14/20 04/22/20 History atorvastatin 10 mg PO BEDTIME 01/14/20 04/22/20 History diltiazem HCl 120 mg PO BID 01/14/20 04/22/20 History doxazosin 4 mg PO DAILY 01/14/20 04/22/20 History epoetin donis [Procrit] 3,000 unit SUBCUT Q4W 01/14/20 04/22/20 History ferrous sulfate [FeroSul] 325 mg PO DAILY 01/14/20 04/22/20 History furosemide 40 mg PO BID 01/14/20 04/22/20 History hydralazine 50 mg PO BID 01/14/20 04/22/20 History labetalol 200 mg PO BID 01/14/20 04/28/20 History losartan 100 mg PO DAILY 01/14/20 04/22/20 History multivitamin 1 tab PO DAILY 01/14/20 04/22/20 History blood sugar diagnostic #10 ea 04/20/20 History lancets 33 gauge #100 ea 04/20/20 History Exam Airway Mallampati Class: II TM Dist: >3cm Neck ROM: Full Heart: Rrr Lungs: CTA BL Assessment and Plan Assessment Anesthesia Assessment: Anesthesia Plan Discussed and Chart Reviewed Final Anesthetic Review NPO: Yes (Sip water with meds) ASA Class: III Final Preanesthetic Review: No Changes in Pt Med Stat and Consent Obtained/Reviewed Patient Risk: Intermediate Procedure Risk: Intermediate Anesthetic Plan Anesthetic Plan: MAC: Disposition: Standard PACU
[2020-04-28 10:42] VITALS: BP 126/45; PULSE 54; RESP 16; TEMP 36.1; O2SAT 100
[2020-04-28] MEDS: 0.9 % Sodium Chloride 1,000 ML 50 ML IVCONT (11:25)
[2020-04-28 11:43] LABS: Glucose, Whole Blood 109 mg/dL (60-115)
[2020-04-28 12:25] VITALS: BP 106/31; PULSE 50; RESP 12; TEMP 36.2; O2SAT 98
--- NOTE | 2020-04-28 12:28 | PM.OP ---
Brief Operative Note Date of Service: 04/28/20 Pre-op diagnosis: Appendiceal orifice adenoma Post-op diagnosis: other (Appendiceal orifice polyp, Diverticulosis) Procedure: Colonoscopy to the cecum and TI with biopsies Surgeon: Deven Mccallum Anesthesia: MAC Estimated blood loss (mL): 3.0 Pathology: other (A. Appendiceal orifice polyp) Condition: stable Disposition: PACU
[2020-04-28 12:51] VITALS: BP 108/40; PULSE 50; RESP 17; TEMP 36.3; O2SAT 96
--- NOTE | 2020-04-28 13:13 | HO.POSTANES ---
Post Anesthesia Evaluation Post Anesthesia Evaluation Vital Signs: Vital Signs Temp Pulse Resp BP Pulse Ox 04/28/20 12:51 97.4 F 50 17 108/40 L 96 04/28/20 12:25 97.1 F 50 12 106/31 L 98 04/28/20 10:42 97.0 F 54 16 126/45 L 100 Anesthesia: Monitored Mental Status: Awake Pain Control: Satisfactory Nausea/Vomiting: None Hydration: Adequate Anesthesia-Related Issues: No Anes. Related Issues
--- NOTE | 2020-04-28 13:21 | OP_ITS ---
SURGEON: Deven Mccallum MD INDICATIONS: The patient presents for evaluation of personal history of tubular adenoma of the colon and re-evaluation of an appendiceal orifice adenoma. Full consent has been obtained from him for this, including risks of bleeding and perforation. PREOPERATIVE DIAGNOSIS: POSTOPERATIVE DIAGNOSIS: Personal history of tubular adenoma of the colon, including an appendiceal orifice tubular adenoma, appendiceal orifice polyp, diverticulosis, and internal hemorrhoids. PROCEDURE PERFORMED: Colonoscopy to the cecum and terminal ileum with biopsy. ESTIMATED BLOOD LOSS: COMPLICATIONS: ANESTHESIA: Monitored anesthesia care. ASSISTANTS: SPECIMENS: PREOPERATIVE DIAGNOSES: Personal history of tubular adenoma of the colon, including an appendiceal orifice tubular adenoma. DESCRIPTION OF PROCEDURE: The patient was placed in the left lateral decubitus position. The digital rectal exam revealed no abnormalities. The Olympus video pediatric colonoscope was entered into the rectum and advanced easily to the cecum. Once in the cecum, I did identify cecal pouch with appendiceal orifice and a normal-appearing ileocecal valve. The terminal ileum was cannulated and appeared normal. The scope was withdrawn back in the colon. The entire cecum was carefully evaluated. The appendiceal orifice was well visualized. Initially, the appendiceal orifice appeared normal. Given the known history of the previous adenoma within the appendiceal orifice, I did probe the orifice with the biopsy forceps. At that point, I did visualize what I felt was still some residual adenomatous polypoid tissue. I did obtain 1 or 2 biopsies from what I feel was the polypoid lesion, although it was somewhat difficult to see it as it kept going back into the orifice It did not seem as prominent as it did on the previous colonoscopy. I really could not remove it given its location. The remainder of the cecum appeared normal. The scope was slowly withdrawn assessing all mucosal surfaces carefully. Preparation was very good throughout the colon although the sigmoid colon and rectum had some residual stool, which was irrigated and suctioned away as best as possible. The transverse colon had the previously placed submucosal ink mtz, but without any sign of other polyps, colitis, nor angiodysplasia. There was a mild amount of sigmoid diverticulosis. In the rectum, scope was retroflexed visualizing some small internal hemorrhoids, but no other pathology. The rectal mucosa otherwise appeared normal. Scope was straightened and withdrawn from the patient. He tolerated the procedure well and was returned to recovery area in stable condition. IMPRESSION: 1. Appendiceal orifice polyp. 2. Diverticulosis. 3. Internal hemorrhoids. PLAN: The results of the biopsy will be checked. At some point, we will need to make a decision as to whether or not the patient requires further attempts at removal of this appendiceal orifice polyp. This would need to be done via something such as a laparoscopic appendectomy. He clearly does have some medical problems including progressive renal failure for which he most likely will need dialysis, but we can address that when I see him in the office in the next 1 or 2 months. He was advised to resume his aspirin in 48 hours. Of note, if today's biopsies do not show adenomatous tissue I would still feel that he may need surgical removal of the area since today's biopsies were rather difficult and may not have been from the actual polyp itself. I did review this with the patient and his brother today. MD TARA Garsia/SHRUTHI / [id number] MTDD
--- NOTE | 2020-04-28 14:33 | PC.NURSE ---
Technical problems with discharging, system reflects incorrect time. Patient was discharged 04/28/20 @ 5233
== END 2020-04-28 14:32 | disposition home or self-care (01) ==
LOC: HO.SSS 14:31
PROVIDERS: PCP Family Medicine; Visit Provider Internal Medicine
PROC: 0DJD8ZZ Inspection of Lower Intestinal Tract, Via Natural or Artificial Opening Endoscopic (ICD-10-PCS; CPT 45378; principal; 2020-04-28 12:10)
DX: Z12.11 Encounter for screening for malignant neoplasm of colon (principal); Z86.010 Personal history of colon polyps; K63.5 Polyp of colon; K57.30 Diverticulosis of large intestine without perforation or abscess without bleeding; K64.8 Other hemorrhoids; D64.9 Anemia, unspecified; E11.22 Type 2 diabetes mellitus with diabetic chronic kidney disease; I13.2 Hypertensive heart and chronic kidney disease with heart failure and with stage 5 chronic kidney disease, or end stage renal disease; I50.32 Chronic diastolic (congestive) heart failure; N18.6 End stage renal disease; Z79.82 Long term (current) use of aspirin; Z79.899 Other long term (current) drug therapy; Z95.0 Presence of cardiac pacemaker; Z87.891 Personal history of nicotine dependence; Z88.8 Allergy status to other drugs, medicaments and biological substances
CPT/HCPCS: 45380; 82947; 88305

== ENCOUNTER → 2020-05-11 10:51 | Outpatient (BNVA) | payer MEDICARE, SELFPAY | PROVIDERS: PCP Family Medicine; Visit Provider Surgery Vascular Surgery | DX: N18.4 Chronic kidney disease, stage 4 (severe) (principal) | CPT/HCPCS: 99212 ==

== ENCOUNTER → 2020-05-12 09:24 | Outpatient (BNVA) | payer MEDICARE, SELFPAY | PROVIDERS: PCP Family Medicine; Referring Provider Family Medicine; Visit Provider Internal Medicine | DX: Z45.018 Encounter for adjustment and management of other part of cardiac pacemaker (principal); I38 Endocarditis, valve unspecified; E78.5 Hyperlipidemia, unspecified; I12.9 Hypertensive chronic kidney disease with stage 1 through stage 4 chronic kidney disease, or unspecified chronic kidney disease; N18.4 Chronic kidney disease, stage 4 (severe) | CPT/HCPCS: 99212 ==

== ENCOUNTER 2020-05-24 07:53 | Day surgery (SDC) | payer MEDICARE, SELFPAY ==
[2020-05-17 17:37] VITALS: BMI 29.0
--- NOTE | 2020-05-20 12:16 | HO.ANESPROP2 ---
Documented by User: Maureen Michaels 05/20/20 12:18 HPI - Anesthesia Eval Consult details Narrative: 79yo M for AV Fistula Creation, Left Arm Pt with previous AV fistula creation 04/26/20 with MAC. Nonfunctioning PMFSH Past Medical History Medical History Anemia Aortic valvular disease Arthritis Atherosclerotic cardiovascular disease CHF (congestive heart failure) Chronic heart failure with preserved ejection fraction (HFpEF) Chronic kidney disease Diabetes NAVA (dyspnea on exertion) Elevated cholesterol Essential hypertension HTN (hypertension) Normally functioning cardiac pacemaker present Other and unspecified hyperlipidemia Pacemaker Pulmonary hypertension Rhabdomyolysis due to statin therapy Valvular heart disease Family History Family History Father Stroke Mother Stroke Diabetes Surgical History Surgical History History of tonsillectomy Hx of colonoscopy S/P excision of lipoma Status cardiac pacemaker Social History Social History Smoking Status: Never smoker Use of substances other than those prescribed or required for medical reasons: No Advance Directives: Yes Advance Directives Information Provided: Yes Advance Directives on File: Yes Advance Directives Date on File: 04/26/20 Meds Allergies Allergy/AdvReac Type Severity Reaction Status Date / Time cephalexin [From KEFLEX] Allergy Severe ANGIO EDEMA Verified 05/24/20 08:27 lisinopril [LISINOPRIL] Allergy Severe FACIAL Verified 05/24/20 08:27 EDEMA simvastatin Allergy Severe renal Verified 05/24/20 08:27 insufficiency carvedilol [From COREG] Allergy Intermediate SHORTNESS Verified 05/24/20 08:27 OF BREATH amlodipine Allergy Mild renal Verified 05/24/20 08:27 insuff in combo w/ statin rx Home Medications Medication Instructions Recorded Confirmed Type aspirin [Aspir-81] 81 mg PO DAILY 01/14/20 05/17/20 History atorvastatin 10 mg PO BEDTIME 01/14/20 05/17/20 History doxazosin 4 mg PO DAILY 01/14/20 05/17/20 History epoetin donis [Procrit] 3,000 unit SUBCUT Q4W 01/14/20 05/17/20 History ferrous sulfate [FeroSul] 325 mg PO DAILY 01/14/20 05/17/20 History furosemide 40 mg PO BID 01/14/20 05/17/20 History hydralazine 50 mg PO BID 01/14/20 05/17/20 History labetalol 200 mg PO BID 01/14/20 05/17/20 History losartan 100 mg PO DAILY 01/14/20 05/17/20 History multivitamin 1 tab PO DAILY 01/14/20 05/17/20 History blood sugar diagnostic #10 ea 04/20/20 05/17/20 History lancets 33 gauge #100 ea 04/20/20 05/17/20 History diltiazem HCl 120 mg 120 mg PO DAILY 05/12/20 05/17/20 History capsule,extended release 24 hr Exam Exam Date and Time: May 20, 2020 1216 Height,Weight and Vital Signs: Height 5 ft 6 in Weight 81.647 kg Pertinent Lab Results Pertinent Lab Results: Labs DOS per surgeon Narrative Narrative: EKG 11/11/19 SB@51 with V pacing per cardiol note Pacer interro 11/19/19: DDDR,-50 AP 25%, 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 Battery status is 10.2 years. Lead parameters appear to be within normal limits. Atrial pacing 29% and ventricular pacing 99%. No significant atrial arrhythmias. ECHO 04/2020: Conclusions: - 1. Cbru-rm-ojplplla LV systolic dysfunction mild LVH with grade 3 diastolic dysfunction 2. Moderate biatrial enlargement and moderate RV enlargement 3. Mild aortic stenosis 4. At least moderate mitral regurgitation 5. Moderately elevated right ventricular systolic pressure 6. No pericardial effusion Stress/MIBI 04/2019: Likely nml perfusion, Gated LVEF 57%, no transient ischemic dilation; EKG nondiagnostic for ischemia Assessment and Plan Assessment Anesthesia Assessment: Chart Reviewed Documented by User: Adelaide Najera 05/24/20 08:44 [facility] Past Medical History Medical History Anemia Aortic valvular disease Arthritis Atherosclerotic cardiovascular disease CHF (congestive heart failure) Chronic heart failure with preserved ejection fraction (HFpEF) Chronic kidney disease Diabetes NAVA (dyspnea on exertion) Elevated cholesterol Essential hypertension HTN (hypertension) Normally functioning cardiac pacemaker present Other and unspecified hyperlipidemia Pacemaker Pulmonary hypertension Rhabdomyolysis due to statin therapy Valvular heart disease Family History Family History Father Stroke Mother Stroke Diabetes Family history of problems with anesthesia: No Surgical History Surgical History History of tonsillectomy Hx of colonoscopy S/P excision of lipoma Status cardiac pacemaker History of Problems with Anesthesia: No Social History Social History Smoking Status: Never smoker Use of substances other than those prescribed or required for medical reasons: No Advance Directives: Yes Advance Directives Information Provided: Yes Advance Directives on File: Yes Advance Directives Date on File: 04/26/20 Meds Allergies Allergy/AdvReac Type Severity Reaction Status Date / Time cephalexin [From KEFLEX] Allergy Severe ANGIO EDEMA Verified 05/24/20 08:27 lisinopril [LISINOPRIL] Allergy Severe FACIAL Verified 05/24/20 08:27 EDEMA simvastatin Allergy Severe renal Verified 05/24/20 08:27 insufficiency carvedilol [From COREG] Allergy Intermediate SHORTNESS Verified 05/24/20 08:27 OF BREATH amlodipine Allergy Mild renal Verified 05/24/20 08:27 insuff in combo w/ statin rx Home Medications Medication Instructions Recorded Confirmed Type aspirin [Aspir-81] 81 mg PO DAILY 01/14/20 05/17/20 History atorvastatin 10 mg PO BEDTIME 01/14/20 05/17/20 History doxazosin 4 mg PO DAILY 01/14/20 05/17/20 History epoetin donis [Procrit] 3,000 unit SUBCUT Q4W 01/14/20 05/17/20 History ferrous sulfate [FeroSul] 325 mg PO DAILY 01/14/20 05/17/20 History furosemide 40 mg PO BID 01/14/20 05/17/20 History hydralazine 50 mg PO BID 01/14/20 05/17/20 History labetalol 200 mg PO BID 01/14/20 05/17/20 History losartan 100 mg PO DAILY 01/14/20 05/17/20 History multivitamin 1 tab PO DAILY 01/14/20 05/17/20 History blood sugar diagnostic #10 ea 04/20/20 05/17/20 History lancets 33 gauge #100 ea 04/20/20 05/17/20 History diltiazem HCl 120 mg 120 mg PO DAILY 05/12/20 05/17/20 History capsule,extended release 24 hr Exam Height,Weight and Vital Signs: Vital Signs Temp Pulse Resp BP Pulse Ox 05/24/20 08:29 97.3 F 51 16 107/38 L 99 Pertinent Lab Results Pertinent Lab Results: Lab Results 05/24/20 Range/Units 08:20 POC Glucose 113 (60-115) mg/dL Airway Mallampati Class: II TM Dist: >3cm Neck ROM: Full Loose/Missing/Broken Teeth: No Heart: RRR Lungs: CTAB Assessment and Plan Assessment Anesthesia Assessment: Anesthesia Plan Discussed and Chart Reviewed Final Anesthetic Review NPO: Yes ASA Class: III Final Preanesthetic Review: No Changes in Pt Med Stat, Meds/Allgs Chart Reviewed, Consent Obtained/Reviewed and Anes Risks/Benef Reviewed Patient Risk: Intermediate Procedure Risk: Intermediate Assessment/Block/Sedation in SS: Assess/Block/Sedation-SS Anesthetic Plan Anesthetic Plan: GA Disposition: Standard PACU
[2020-05-24] VITALS (8 sets, daily range): BP systolic 106–116; BP diastolic 38–49; PULSE 48–54; RESP 16–18; TEMP 36.3–37.2; O2SAT 98–100
[2020-05-24 08:24] LABS: Glucose, Whole Blood 113 mg/dL (60-115)
[2020-05-24 08:36] LABS: Hematocrit 25.8 % (42-52); Hemoglobin 7.8 g/dl (14.0-18.0); Mean Corpuscular HGB Conc 30.2 g/dl (31.0-36.0); Mean Corpuscular Hemoglobin 28.9 pg (27.0-33.0); Mean Corpuscular Volume 95.6 fL (80-98); Mean Platelet Volume 10.3 fL (9.4-12.4); Platelet Count 143 X10*3/uL (160-400); Red Cell Distribution Width 18.6 % (11.0-16.0)
[2020-05-24 08:41] LABS: INTERNATIONAL NORM RATIO 1.1 (0.9-1.1); Prothrombin Time 13.6 SEC (10.8-13.0)
[2020-05-24 08:43] LABS: Partial Thromboplastin Time 33.7 SEC (24.1-38.0)
[2020-05-24] MEDS: 0.9 % Sodium Chloride 500 ML 20 ML IVCONT (08:51)
[2020-05-24 09:31] LABS: Anion Gap 17 (12-20); Calcium 8.1 mg/dL (8.4-10.2); Carbon Dioxide 18 mmol/L (22-29); Chloride 110 mmol/L (96-108); Creatinine Clr Calc Pharmacy 14.6; Estimated Glomerular Filt Rate 14; Glucose Random 109 mg/dL (60-115); Potassium 4.1 mmol/L (3.3-5.1); Sodium 141 mmol/L (135-145)
[2020-05-24 09:43] LABS: Blood Urea Nitrogen 131 mg/dL (9-16)
--- NOTE | 2020-05-24 11:44 | MHC.SHP ---
Pre-Procedural Eval Section B Chief Complaint: stage 4 kidney disease Allergies: Allergies Allergy/AdvReac Type Severity Reaction Status Date / Time cephalexin [From KEFLEX] Allergy Severe ANGIO EDEMA Verified 05/24/20 08:27 lisinopril [LISINOPRIL] Allergy Severe FACIAL Verified 05/24/20 08:27 EDEMA simvastatin Allergy Severe renal Verified 05/24/20 08:27 insufficiency carvedilol [From COREG] Allergy Intermediate SHORTNESS Verified 05/24/20 08:27 OF BREATH amlodipine Allergy Mild renal Verified 05/24/20 08:27 insuff in combo w/ statin rx Plan I have reviewed the history and physical and performed a pertinent physical examination on my patient. No changes have occurred unless specified.
--- NOTE | 2020-05-24 11:45 | P.OP_ITS ---
Operative Note Operative Note Date of Service: 05/24/20 Narrative: Operative note by [facility] Preoperative diagnosis: Chronic renal insufficiency Postoperative diagnosis: Same Procedure: Creation of left arm fistula (brachiocephalic) Surgeon:Shimon Moe M.D. Practice Consultant: Esdras Anesthesia: General Specimens: None Drains: None Estimated blood loss: Minimal Indications: Very pleasant 79-year-old gentleman with chronic renal insufficiency. He had undergone SMA no fistula which failed to mature. He now presents for creation of left arm brachiocephalic fistula. Risks, benefits, complications were discussed in detail with the patient. He demonstrated a clear understanding. He consented. Procedure in detail: Patient was brought to the operating room prior to which a time-out was called for patient identification site verification. Left arm was prepped and draped in standard surgical fashion. Prior to prepping the cephalic vein and brachial artery were premarked with ultrasound guidance. A transverse incision was created just above the antecubital fossa up approximately 6 cm in diameter. Cephalic vein was easily identified and isolated with silastic loop. Brachial artery dissection was then undertaken proximal and distal control was obtained with silastic loops once again. At this 0.3 1000 units of systemic heparin was administered. The cephalic vein was ligated at the most distal portion. This was done with 3-0 silk ties. Subsequently the cephalic vein which was isolated was clamped. Arteriotomy was made with 11 blade. Artery was opened with Landaverde scissors. It was splayed out with 7 0 Prolene sutures. The cephalic vein was trimmed to appropriate size. It was subsequently circumferentially anastomosed with a 6 0 Prolene. Once this was accomplished it was flushed clear prior to closure. It was then closed. Adequate hemostasis was achieved. Deep layer was reapproximated using 3-0 Vicryl sutures. Skin with a subcuticular 4 Monocryl. Steri-Strips and a sterile dressing were applied. At the end the case sponge instrument counts were correct. Patient tolerated the procedure well and returned to recovery with stable vitals. This note is constructed using voice recognition software. While every effort has been made to ensure accuracy, core winding operator errors may have been included. Thank you for allowing me to participate in the care of your patient. Yours sincerely, Shimon Moe MD, FACS, R.P.V.I.
[2020-05-24] MEDS: Acetaminophen 325 MG TABLET 650 MG PO (12:53)
--- NOTE | 2020-05-24 13:15 | HO.POSTANES ---
Post Anesthesia Evaluation Post Anesthesia Evaluation Vital Signs: Vital Signs Temp Pulse Resp BP Pulse Ox 05/24/20 12:47 99.0 F 50 18 114/45 L 98 05/24/20 12:32 54 18 116/45 L 99 05/24/20 12:17 53 16 111/49 L 98 05/24/20 12:02 49 L 16 115/49 L 100 05/24/20 11:57 50 16 112/47 L 98 05/24/20 11:52 48 L 16 109/48 L 98 05/24/20 11:47 97.5 F 50 16 106/43 L 98 05/24/20 08:29 97.3 F 51 16 107/38 L 99 Anesthesia: General LMA Mental Status: Awake Pain Control: Satisfactory Nausea/Vomiting: None Hydration: Adequate Anesthesia-Related Issues: No Anes. Related Issues
== END 2020-05-24 13:45 | disposition home or self-care (01) ==
PROVIDERS: PCP Family Medicine; Visit Provider Surgery Vascular Surgery
PROC: (CPT 36821; principal; 2020-05-24 09:40)
DX: I13.0 Hypertensive heart and chronic kidney disease with heart failure and stage 1 through stage 4 chronic kidney disease, or unspecified chronic kidney disease (principal); N18.4 Chronic kidney disease, stage 4 (severe); E11.22 Type 2 diabetes mellitus with diabetic chronic kidney disease; I50.32 Chronic diastolic (congestive) heart failure; Z79.899 Other long term (current) drug therapy
CPT/HCPCS: 36821; 36415; 80048; 82947; 85027; 85610; 85730; J0690; J2405

== ENCOUNTER 2020-06-04 07:29 | Outpatient (REF) | payer MEDICARE, SELFPAY | END 2020-06-04 07:30 | disposition home or self-care (01) | LOC: HO.MDS 07:29 | PROVIDERS: Visit Provider Internal Medicine Hypertension Specialist | DX: N18.5 Chronic kidney disease, stage 5 (principal); D63.1 Anemia in chronic kidney disease | CPT/HCPCS: 36430; 86850; 86900; 86901; 86923; 96374; J1885; J1940; P9016 ==

== ENCOUNTER 2020-06-08 09:44 | Outpatient (REF) | payer MEDICARE, SELFPAY ==
[2020-06-08 11:42] LABS: Hematocrit 28.2 % (42-52); Hemoglobin 8.8 g/dl (14.0-18.0); Mean Corpuscular HGB Conc 31.2 g/dl (31.0-36.0); Mean Corpuscular Hemoglobin 29.7 pg (27.0-33.0); Mean Corpuscular Volume 95.3 fL (80-98); Mean Platelet Volume 11.7 fL (9.4-12.4); Platelet Count 142 X10*3/uL (160-400); Red Blood Count 2.96 X10*6/uL (4.60-5.80); Red Cell Distribution Width 18.5 % (11.0-16.0); White Blood Count 6.9 X10*3/uL (4.8-10.8)
[2020-06-08 12:21] LABS: Anion Gap 18 (12-20); Calcium 8.2 mg/dL (8.4-10.2); Carbon Dioxide 19 mmol/L (22-29); Chloride 109 mmol/L (96-108); Potassium 4.4 mmol/L (3.3-5.1); Sodium 142 mmol/L (135-145)
[2020-06-08 13:50] LABS: Blood Urea Nitrogen 164 mg/dL (9-16); Estimated Glomerular Filt Rate 11
== END 2020-06-08 09:45 | disposition home or self-care (01) ==
LOC: HO.LAB 09:44
PROVIDERS: PCP Family Medicine; Referring Provider Internal Medicine Hypertension Specialist; Visit Provider Surgery Vascular Surgery
DX: N18.4 Chronic kidney disease, stage 4 (severe) (principal); D63.1 Anemia in chronic kidney disease; I50.32 Chronic diastolic (congestive) heart failure; I25.10 Atherosclerotic heart disease of native coronary artery without angina pectoris; I35.8 Other nonrheumatic aortic valve disorders; E11.9 Type 2 diabetes mellitus without complications; Z95.0 Presence of cardiac pacemaker
CPT/HCPCS: 36415; 80051; 82310; 82565; 84520; 85027; 99212

== ENCOUNTER 2020-06-23 11:21 | Outpatient (REF) | payer MEDICARE, SELFPAY ==
[2020-06-24 04:58] LABS: HBS Num1 0.42 mIU/mL (0-7.99); HBc Num1 0.05 S/CO (0.00-0.79); Hepatitis B Core Antibody Nonreactive (Nonreactive); ~Hepatitis B Surface Antibody NONREACTIVE (Nonreactive)
[2020-06-24 05:09] LABS: HBsAGNum1 0.14 S/CO (0.00-0.99); Hepatitis B Surface Antigen Negative (Negative); ~HepC Num1 0.08 S/CO (0.00-0.79); ~Hepatitis C Antibody Nonreactive (Nonreactive)
== END 2020-06-23 11:22 | disposition home or self-care (01) ==
LOC: HO.LAB 11:21
PROVIDERS: PCP Family Medicine; Visit Provider Internal Medicine Hypertension Specialist
DX: N18.5 Chronic kidney disease, stage 5 (principal)
CPT/HCPCS: 36415; 86704; 86706; 86803; 87340

== ENCOUNTER 2020-07-12 11:14 | Outpatient (REF) | payer MEDICARE, SELFPAY ==
[2020-07-12 12:09] LABS: Basophils Percent Auto 0.3 % (0-2); Eosinophils Absolute Auto 0.2 X10*3/uL (0.0-0.4); Hematocrit 28.1 % (42-52); Hemoglobin 8.6 g/dl (14.0-18.0); Imm Gran Abs Auto 0.03 X10*3/uL (0.00-0.03); Imm Gran Pct Auto 0.5 % (0.0-0.4); Lymphocytes Absolute Auto 0.4 X10*3/uL (1.2-4.9); Lymphocytes Percent Auto 5.7 % (20-40); MANUAL DIFF FLAG SCAN; Mean Corpuscular HGB Conc 30.6 g/dl (31.0-36.0); Mean Corpuscular Hemoglobin 30.2 pg (27.0-33.0); Mean Corpuscular Volume 98.6 fL (80-98); Mean Platelet Volume 10.8 fL (9.4-12.4); Monocytes Absolute Auto 0.5 X10*3/uL (0.1-1.2); Monocytes Percent Auto 8.2 % (2-11); Neutrophils Absolute Auto 5.5 X10*3/uL (2.0-8.3); Neutrophils Percent Auto 82.3 % (45-73); Platelet Count 109 X10*3/uL (160-400); Red Blood Count 2.85 X10*6/uL (4.60-5.80); SCAN SMEAR FLAG 1; White Blood Count 6.6 X10*3/uL (4.8-10.8)
[2020-07-12 12:33] LABS: SLIDE REVIEW VERIFIED
[2020-07-12 13:06] LABS: Anion Gap 18 (12-20); Blood Urea Nitrogen 165 mg/dL (9-16); Calcium 7.9 mg/dL (8.4-10.2); Carbon Dioxide 16 mmol/L (22-29); Chloride 111 mmol/L (96-108); Estimated Glomerular Filt Rate 10; Potassium 5.2 mmol/L (3.3-5.1); Sodium 140 mmol/L (135-145)
[2020-07-13 17:37] LABS: Calcium (PTHI) 8.4 mg/dL (8.6-10.3); PTHI 203 pg/mL (14-64)
== END 2020-07-12 11:15 | disposition home or self-care (01) ==
LOC: HO.LAB 11:14
PROVIDERS: PCP Family Medicine; Visit Provider Internal Medicine Hypertension Specialist
DX: N18.5 Chronic kidney disease, stage 5 (principal)
CPT/HCPCS: 36415; 80051; 82310; 82565; 83970; 84520; 85025

== ENCOUNTER → 2020-08-04 10:46 | Outpatient (BNVA) | payer MEDICARE, SELFPAY | PROVIDERS: PCP Family Medicine; Visit Provider Internal Medicine | DX: I25.10 Atherosclerotic heart disease of native coronary artery without angina pectoris (principal); I13.2 Hypertensive heart and chronic kidney disease with heart failure and with stage 5 chronic kidney disease, or end stage renal disease; I50.32 Chronic diastolic (congestive) heart failure; N18.6 End stage renal disease; I38 Endocarditis, valve unspecified; E78.5 Hyperlipidemia, unspecified; Z99.2 Dependence on renal dialysis; Z95.0 Presence of cardiac pacemaker | CPT/HCPCS: 93005; 99212 ==

== ENCOUNTER 2020-08-06 11:30 | Outpatient (REF) | payer MEDICARE, SELFPAY ==
[2020-08-06 12:19] LABS: Hematocrit 27.2 % (42-52); Hemoglobin 8.2 g/dl (14.0-18.0); Mean Corpuscular HGB Conc 30.1 g/dl (31.0-36.0); Mean Corpuscular Hemoglobin 30.5 pg (27.0-33.0); Mean Corpuscular Volume 101.1 fL (80-98); Mean Platelet Volume 10.6 fL (9.4-12.4); Platelet Count 128 X10*3/uL (160-400); Red Blood Count 2.69 X10*6/uL (4.60-5.80); Red Cell Distribution Width 18.6 % (11.0-16.0); White Blood Count 6.3 X10*3/uL (4.8-10.8)
[2020-08-06 12:25] LABS: INTERNATIONAL NORM RATIO 1.3 (0.9-1.1); Prothrombin Time 15.2 SEC (10.8-13.0)
[2020-08-06 12:54] LABS: Anion Gap 15 (12-20); Blood Urea Nitrogen 66 mg/dL (9-16); Calcium 8.3 mg/dL (8.4-10.2); Carbon Dioxide 27 mmol/L (22-29); Chloride 101 mmol/L (96-108); Estimated Glomerular Filt Rate 13; Glucose Random 101 mg/dL (60-115); Potassium 4.2 mmol/L (3.3-5.1); Sodium 139 mmol/L (135-145)
== END 2020-08-06 11:31 | disposition home or self-care (01) ==
LOC: HO.LAB 11:30
PROVIDERS: PCP Family Medicine; Visit Provider Internal Medicine
DX: I50.32 Chronic diastolic (congestive) heart failure (principal)
CPT/HCPCS: 36415; 80048; 85027; 85610

== ENCOUNTER → 2020-08-31 10:17 | Outpatient (BNVA) | payer MEDICARE, SELFPAY | PROVIDERS: PCP Family Medicine; Visit Provider Internal Medicine | DX: I25.10 Atherosclerotic heart disease of native coronary artery without angina pectoris (principal); I50.32 Chronic diastolic (congestive) heart failure; I12.9 Hypertensive chronic kidney disease with stage 1 through stage 4 chronic kidney disease, or unspecified chronic kidney disease; N18.6 End stage renal disease; Z99.2 Dependence on renal dialysis; I38 Endocarditis, valve unspecified; E78.5 Hyperlipidemia, unspecified; Z95.0 Presence of cardiac pacemaker | CPT/HCPCS: 99212 ==

== ENCOUNTER 2020-11-04 10:26 | Outpatient (REF) | payer MEDICARE, SELFPAY ==
--- NOTE | ~2020-11-04 | XR_ITS ---
EXAMINATION: XR HIP, RIGHT CLINICAL INFORMATION: Right hip pain. Right hip weakness. COMPARISON: CT abdomen and pelvis 03/12/2018, pelvic radiographs 05/01/2016 TECHNIQUE: Two views of the right hip. FINDINGS: There is no fracture, dislocation, or destructive process. The right hip shows prominent osteoarthritic changes with marked superior joint space narrowing, subchondral sclerosis, and subchondral cysts. There is mild flattening of the femoral head, and possibility of superimposed avascular necrosis cannot be excluded. There are no visible erosive changes. Again, there is some benign ossification soft tissues lateral to the greater trochanter. There are prominent degenerative changes again seen lumbosacral spine. The bony pelvis shows subtle cortical thickening on the right which may suggest early Paget's disease. XR/XR hip RT min 2V IMPRESSION: 1. Marked osteoarthritis right hip. Possibility of superimposed osteonecrosis cannot be excluded. 2. Degenerative changes lumbosacral spine. 3. Subtle coarsening cortex right hemipelvis which may suggest early Paget's.
== END 2020-11-04 10:27 | disposition home or self-care (01) ==
LOC: HO.XRAY 10:26
PROVIDERS: PCP Family Medicine; Visit Provider Family Medicine
DX: M25.551 Pain in right hip (principal); R53.1 Weakness
CPT/HCPCS: 73502

== ENCOUNTER → 2020-11-18 13:57 | Outpatient (BNVA) | payer MEDICARE, SELFPAY | PROVIDERS: PCP Family Medicine; Visit Provider Physician Assistant | DX: M76.899 Other specified enthesopathies of unspecified lower limb, excluding foot (principal) | CPT/HCPCS: 99202 ==

== ENCOUNTER → 2021-03-08 10:13 | Outpatient (BNVA) | payer MEDICARE, SELFPAY | PROVIDERS: PCP Family Medicine; Visit Provider Internal Medicine | DX: I25.10 Atherosclerotic heart disease of native coronary artery without angina pectoris (principal); I13.2 Hypertensive heart and chronic kidney disease with heart failure and with stage 5 chronic kidney disease, or end stage renal disease; N18.6 End stage renal disease; I50.32 Chronic diastolic (congestive) heart failure; I38 Endocarditis, valve unspecified; E78.5 Hyperlipidemia, unspecified; Z95.0 Presence of cardiac pacemaker; Z99.2 Dependence on renal dialysis | CPT/HCPCS: 99212 ==

== ENCOUNTER → 2021-08-02 10:16 | Outpatient (REF) | payer MEDICARE, SELFPAY ==
--- NOTE | 2021-08-02 10:21 | CA_ITS ---
Transthoracic Echocardiogram Patient (Last, First, Middle): George Levy N Gender: Male Date of : 1940 Age: 80 Procedure Date: 08/02/2021 Procedure Type: Transthoracic Echocardiogram Location: OP Height: 165.1 cm Weight: 72.58 kg BSA: 1.80 m2 Heart Rate: bpm BP: 115 / 68 mmHg Application Integration Architect: MONICA Referring MD: Pro Alexander MD Railroad Brake Repairer: Reynaldo Ferreira MD Symptoms: I50.32 - Chronic diastolic (congestive) heart failure Study Quality: Fair Conclusions: - 1. [id number]-pyyacimj LV systolic dysfunction with restrictive filling pattern with underlying regional wall motion abnormality 2. Moderately dilated right ventricle with preserved contractility 3. Moderate biatrial enlargement 4. Iyha-rs-ouudqafe aortic stenosis 5. At least moderate eccentric mitral regurgitation 6. Severely elevated right ventricular systolic pressure with mildly elevated right atrial pressures 7. No pericardial effusion Findings Left Ventricle Normal left ventricular cavity size. There is normal left ventricular wall thickness. The left ventricular systolic function is mild to moderately decreased. The visually estimated ejection fraction is between 40-45%. Spectral Doppler is indicative of a restrictive filling pattern. Wall Motion Rest Echo Findings The inferoseptal wall and basal inferior segment are akinetic. All other scored wall segments showed normal motion. Right Ventricle Moderately increased right ventricular cavity size. There is normal right ventricular systolic function. There is a pacemaker wire seen in the right ventricle. Atria The left atrium is moderately dilated. There is no evidence of interatrial shunt. The right atrium is moderately dilated. Aortic Valve There is mild calcification of the aortic valve. There is mild thickening of the aortic valve. There is mild to moderate aortic valve stenosis. The peak aortic gradient is 24 mmHg.The mean gradient is 15 mmHg. There is no aortic valve regurgitation. Mitral Valve There is mild anterior and moderate posterior mitral leaflet thickening. There is moderate mitral annular calcification. There is moderate mitral valve regurgitation. The mitral regurgitation jet is directed posteriorly. There is no mitral valve stenosis. Pulmonic Valve The pulmonic valve was not well visualized. Tricuspid Valve Normal tricuspid valve structure. There is mild to moderate tricuspid valve regurgitation. Mildly elevated right atrial pressure. Severe pulmonary hypertension is present. Great Vessels All visible segments of the aorta are normal in size. The pulmonary artery was not well visualized. Venous The inferior vena cava is moderately dilated and collapses greater than 50% with inspiration. Pericardium/Pleural There is no evidence of pericardial effusion. Prior Study Comparison Changes noted compared to prior study dated: 04/21/2020. RV systolic pressure is further elevated Measurements 2D Linear Measurements IVSd: 1.04 0.6-0.9/0.6-1.0 cm LVIDd: 5.62 3.9-5.3/4.2-5.9 cm LVIDd Index: 3.12 2.4-3.2/2.2-3.1 cm/m2 LVIDs: 4.26 2.0-3.6 cm LVPWd: 0.96 0.7-1.1 cm LA Diam: 4.40 2.7-3.8/3.0-4.0 cm LAIDs Index: 2.44 1.5-2.3 cm/m2 LV Mass: 274.64 67-162/88-224 g LV Mass Index: 152.58 43-95/49-115 g/m2 LVOT Diam: 2.10 3.0+(-)1.3 cm 2D Systolic Function EF 4C: 44.70 >55% EF 2C: 47.00 >55% Mitral Valve MV Pk E: 1.22 MV PK A: 0.34 MV Decel Time: 165.00 E/A: 3.60 E'Lateral: 3.56 E'Medial: 3.37 E/E' Med: 36.20 E/E' Lat: 34.30 PHT: 48.00 MVA PHT: 4.58 Decel [place]: 7.43 MR Vol - PW Dopp: 18.70 MR VTI: 1.87 MR ERO: 10.00 MR [place]: 0.33 MR RAD: 0.50 Aortic Valve AoV Pk [place]: 2.46 AoV Mn [place]: 1.85 AoV VTI: 0.64 AoV Pk Grad: 24.00 Aov Mn Grad: 15.00 KARLA Cont.VTI: 1.49 LVOT LVOT Pk [place]: 1.02 LVOT Mn [place]: 0.80 LVOT VTI: 0.27 LVOT Pk Grad: 4.00 LVOT Mn Grad: 3.00 LVOT Diam: 2.10 LVOT Area: 3.46 Diastolic Function MV Pk E: 1.22 MV Pk A: 0.34 E/A: 3.60 E'Medial: 3.37 E/E' Med: 36.20 E' Laterial: 3.56 E/E' Lat: 34.30 Right Ventricle TAPSE (mm): 23.40 TVS' [place]: 10.90 Tricuspid Valve TR Pk [place]: 3.84 TR Pk Grad: 59.00 RA Press: 8.00 RVSP: 67.00 Great Vessels Aorta Sinus of Valsalva: 2.66 2.0-3.[address] [place]: 1.81 1.7-3.4 cm Ao Asc: 2.70 2.1-3.4 cm Ao Arch: 3.10 Updated in Other Vendor System with Status of Final Reynaldo Ferreira MD electronically signed on 08/02/2021 12:22:52 PM with status of Final
== END ==
LOC: HO.CARD 10:16
PROVIDERS: PCP Family Medicine; Visit Provider Internal Medicine
DX: I50.32 Chronic diastolic (congestive) heart failure (principal)
CPT/HCPCS: 93306

== ENCOUNTER → 2021-10-18 13:41 | Outpatient (BNVA) | payer MEDICARE, SELFPAY | PROVIDERS: PCP Family Medicine; Referring Provider Family Medicine; Visit Provider Internal Medicine | DX: I25.10 Atherosclerotic heart disease of native coronary artery without angina pectoris (principal); I13.2 Hypertensive heart and chronic kidney disease with heart failure and with stage 5 chronic kidney disease, or end stage renal disease; I50.32 Chronic diastolic (congestive) heart failure; N18.6 End stage renal disease; I38 Endocarditis, valve unspecified; I27.20 Pulmonary hypertension, unspecified; E78.5 Hyperlipidemia, unspecified; Z99.2 Dependence on renal dialysis; Z45.018 Encounter for adjustment and management of other part of cardiac pacemaker | CPT/HCPCS: 93005; 93280; 99212 ==

== ENCOUNTER → 2022-03-14 10:12 | Outpatient (REF) | payer MEDICARE, SELFPAY ==
--- NOTE | 2022-03-14 10:15 | CA_ITS ---
Transthoracic Echocardiogram Patient (Last, First, Middle): George Levy N Gender: Male Date of : 1940 Age: 81 Procedure Date: 03/14/2022 Procedure Type: Transthoracic Echocardiogram Location: OP Height: 165.1 cm Weight: 72.58 kg BSA: 1.80 m2 Heart Rate: bpm BP: 120 / 60 mmHg Syrup Maker: MONICA Referring MD: Pro Alexander MD Symptoms: I50.32 - Chronic diastolic (congestive) heart failure Study Quality: Fair, contrast used ECG Rhythm: Ventriculary paced rhythm Conclusions: - The left ventricular systolic function is moderately decreased. The calculated ejection fraction is 38% by biplane method. - The basal inferior segment is akinetic. - Evidence suggests grade III (severe) diastolic dysfunction. - Moderately increased right ventricular cavity size. - Severe biatrial enlargement. - There is mild to moderate aortic valve stenosis. - There is moderate mitral valve regurgitation. - There is mild to moderate tricuspid valve regurgitation. - Moderate pulmonary hypertension is present. Findings Procedure Information Contrast agent, definity, is being given per protocol without apparent complications. Left Ventricle Normal left ventricular cavity size. There is mildly increased left ventricular wall thickness. The left ventricular systolic function is moderately decreased. The calculated ejection fraction is 38% by biplane method. There is moderate global hypokinesis. Evidence suggests grade III (severe) diastolic dysfunction. Wall Motion Rest Echo Findings The basal inferior segment is akinetic. Right Ventricle Moderately increased right ventricular cavity size. There is normal right ventricular systolic function. There is a pacemaker wire seen in the right ventricle. Atria Severe biatrial enlargement. Aortic Valve There is moderate calcification of the aortic valve. There is mild to moderate aortic valve stenosis. The mean gradient is 13 mmHg. The aortic valve area is 1.21 cm2. There is trace (trivial) aortic valve regurgitation. Mitral Valve There is mild mitral annular calcification. There is moderate mitral valve regurgitation. There is no mitral valve stenosis. Pulmonic Valve The pulmonic valve is likely normal. Tricuspid Valve There is mild to moderate tricuspid valve regurgitation. Moderate pulmonary hypertension is present. Great Vessels The asc aorta is normal in size. Small plaque is seen in the sino tubular ridge. Venous The inferior vena cava is dilated and collapses greater than 50% with inspiration. Pericardium/Pleural There is no evidence of pericardial effusion. Prior Study Comparison Changes noted compared to prior study dated: 08/02/2021. LVEF lower than prior study. Measurements 2D Linear Measurements IVSd: 1.00 0.6-0.9/0.6-1.0 cm LVIDd: 5.48 3.9-5.3/4.2-5.9 cm LVIDd Index: 3.04 2.4-3.2/2.2-3.1 cm/m2 LVIDs: 4.20 2.0-3.6 cm LVPWd: 1.18 0.7-1.1 cm LA Diam: 4.30 2.7-3.8/3.0-4.0 cm LAIDs Index: 2.39 1.5-2.3 cm/m2 LV Mass: 296.28 67-162/88-224 g LV Mass Index: 164.60 43-95/49-115 g/m2 LVOT Diam: 2.10 3.0+(-)1.3 cm 2D Systolic Function EF 4C: 33.00 >55% EF 2C: 44.20 >55% EF BiP: 38.40 >55% Mitral Valve MV Pk E: 1.27 MV PK A: 0.29 MV Decel Time: 149.00 E/A: 4.30 E'Lateral: 3.49 E'Medial: 4.56 E/E' Med: 27.90 E/E' Lat: 36.40 PHT: 44.00 MVA PHT: 5.00 Decel [place]: 8.57 MR Vol - PW Dopp: 25.87 MR VTI: 1.99 MR ERO: 13.00 MR [place]: 0.42 MR RAD: 0.50 Aortic Valve AoV Pk [place]: 2.47 AoV Mn [place]: 1.69 AoV VTI: 0.69 AoV Pk Grad: 24.00 Aov Mn Grad: 13.00 KARLA Cont.VTI: 1.21 LVOT LVOT Pk [place]: 0.84 LVOT Mn [place]: 0.63 LVOT VTI: 0.24 LVOT Pk Grad: 3.00 LVOT Mn Grad: 2.00 LVOT Diam: 2.10 LVOT Area: 3.46 Diastolic Function MV Pk E: 1.27 MV Pk A: 0.29 E/A: 4.30 E'Medial: 4.56 E/E' Med: 27.90 E' Laterial: 3.49 E/E' Lat: 36.40 Right Ventricle TAPSE (mm): 26.40 TVS' [place]: 11.20 Tricuspid Valve TR Pk [place]: 3.54 TR Pk Grad: 50.00 RA Press: 8.00 RVSP: 58.00 Great Vessels Aorta Sinus of Valsalva: 3.17 2.0-3.[address] [place]: 2.10 1.7-3.4 cm Ao Asc: 3.20 2.1-3.4 cm Updated in Other Vendor System with Status of Final Pro Alexander MD electronically signed on 03/15/2022 8:33:11 AM with status of Final
== END ==
LOC: HO.CARD 10:12
PROVIDERS: Visit Provider Internal Medicine
DX: I50.32 Chronic diastolic (congestive) heart failure (principal)
CPT/HCPCS: 93306; Q9957

== ENCOUNTER → 2022-05-04 14:04 | Outpatient (BNVA) | payer MEDICARE, SELFPAY | PROVIDERS: PCP Family Medicine; Referring Provider Family Medicine; Visit Provider Internal Medicine | DX: I25.10 Atherosclerotic heart disease of native coronary artery without angina pectoris (principal); I42.9 Cardiomyopathy, unspecified; I38 Endocarditis, valve unspecified; I27.20 Pulmonary hypertension, unspecified; E78.5 Hyperlipidemia, unspecified; I12.9 Hypertensive chronic kidney disease with stage 1 through stage 4 chronic kidney disease, or unspecified chronic kidney disease; N18.6 End stage renal disease; Z99.2 Dependence on renal dialysis | CPT/HCPCS: 99212 ==

== ENCOUNTER → 2022-10-19 13:38 | Outpatient (REF) | payer MEDICARE, SELFPAY | LOC: HO.CARD 13:38 | PROVIDERS: PCP Family Medicine; Visit Provider Internal Medicine | DX: I42.9 Cardiomyopathy, unspecified (principal) | CPT/HCPCS: 93306; Q9957 ==

== ENCOUNTER → 2022-11-15 23:59 | Outpatient (BNV) | payer MEDICARE, SELFPAY ==
--- NOTE | 2022-11-18 14:13 | A.OFFVIS_ITS ---
Intake Intake Visit Reasons: Remote Device Check- [facility] Allergies cephalexin [From KEFLEX] Allergy (Severe, Verified 05/04/22 14:47) ANGIO EDEMA lisinopril [LISINOPRIL] Allergy (Severe, Verified 05/04/22 14:47) FACIAL EDEMA simvastatin Allergy (Severe, Verified 05/04/22 14:47) renal insufficiency carvedilol [From COREG] Allergy (Intermediate, Verified 05/04/22 14:47) SHORTNESS OF BREATH amlodipine Allergy (Mild, Verified 05/04/22 14:47) renal insuff in combo w/ statin rx [facility] Medical History (Updated 08/17/22 @ 12:37 by Pro Alexander MD) Anemia Aortic valvular disease Arthritis Atherosclerotic cardiovascular disease CHF (congestive heart failure) Chronic heart failure with preserved ejection fraction (HFpEF) Chronic kidney disease Diabetes NAVA (dyspnea on exertion) Elevated cholesterol ESRD (end stage renal disease) on dialysis Essential hypertension HTN (hypertension) Normally functioning cardiac pacemaker present Other and unspecified hyperlipidemia Pacemaker Pulmonary hypertension Rhabdomyolysis due to statin therapy Valvular heart disease Surgical History History of cardiac catheterization (~08/2020) History of tonsillectomy Hx of colonoscopy S/P excision of lipoma Status cardiac pacemaker Family History Father Stroke Mother Stroke Diabetes Social History (Updated 05/04/22 @ 14:51 by Naomy Salazar) Are you a primary urgent care physician to a significant other at home: No Alcohol intake: current Alcohol intake frequency: holidays/special occasions on ly Alcohol type: hard liquor Patient Tobacco Use Status: Never used Tobacco Advance Directives Date on File: 04/26/20 Current occupational status: retired 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 Overall normal device function. [id number] Cardiac Device Interrogation, pacemaker Procedure code (CPT) selection complete Assessment & Plan Assessment & Plan (1) Heart block: Code(s): I45.9 - Conduction disorder, unspecified (2) Cardiomyopathy: Code(s): I42.9 - Cardiomyopathy, unspecified Coding Level of Care Code Procedure Only Diagnoses Heart block I45.9 Cardiomyopathy I42.9 CPT Codes Cardiac Device Check - Cardiac Device 12: [id number] Cardiac Device Interrogation, pacemaker ([id number])
== END ==
PROVIDERS: PCP Family Medicine; Visit Provider Internal Medicine
DX: I45.9 Conduction disorder, unspecified (principal); I42.9 Cardiomyopathy, unspecified; Z95.0 Presence of cardiac pacemaker
CPT/HCPCS: 93294

== ENCOUNTER → 2022-11-21 13:23 | Outpatient (BNVA) | payer MEDICARE, SELFPAY | PROVIDERS: PCP Family Medicine; Referring Provider Family Medicine; Visit Provider Internal Medicine | DX: I42.9 Cardiomyopathy, unspecified (principal); I38 Endocarditis, valve unspecified; I27.20 Pulmonary hypertension, unspecified; I25.10 Atherosclerotic heart disease of native coronary artery without angina pectoris; E11.22 Type 2 diabetes mellitus with diabetic chronic kidney disease; I13.2 Hypertensive heart and chronic kidney disease with heart failure and with stage 5 chronic kidney disease, or end stage renal disease; I50.32 Chronic diastolic (congestive) heart failure; N18.6 End stage renal disease; E78.5 Hyperlipidemia, unspecified; Z99.2 Dependence on renal dialysis; Z95.0 Presence of cardiac pacemaker; Z98.890 Other specified postprocedural states | CPT/HCPCS: 93005; 99212 ==

== ENCOUNTER → 2023-02-14 23:59 | Outpatient (BNV) | payer MEDICARE, SELFPAY ==
--- NOTE | 2023-02-15 12:34 | A.OFFVIS_ITS ---
Intake Intake Visit Reasons: Remote Device Check- [facility] Allergies cephalexin [From KEFLEX] Allergy (Severe, Verified 11/21/22 13:34) ANGIO EDEMA lisinopril [LISINOPRIL] Allergy (Severe, Verified 11/21/22 13:34) FACIAL EDEMA simvastatin Allergy (Severe, Verified 11/21/22 13:34) renal insufficiency carvedilol [From COREG] Allergy (Intermediate, Verified 11/21/22 13:34) SHORTNESS OF BREATH amlodipine Allergy (Mild, Verified 11/21/22 13:34) renal insuff in combo w/ statin rx [facility] Medical History (Updated 08/17/22 @ 12:37 by Pro Alexander MD) ESRD (end stage renal disease) on dialysis Other and unspecified hyperlipidemia Normally functioning cardiac pacemaker present Essential hypertension Valvular heart disease Chronic heart failure with preserved ejection fraction (HFpEF) Pulmonary hypertension Arthritis Anemia NAVA (dyspnea on exertion) Rhabdomyolysis due to statin therapy Chronic kidney disease Diabetes Atherosclerotic cardiovascular disease Elevated cholesterol Aortic valvular disease Pacemaker CHF (congestive heart failure) HTN (hypertension) Surgical History History of cardiac catheterization (~08/2020) History of tonsillectomy Hx of colonoscopy S/P excision of lipoma Status cardiac pacemaker Family History Father Stroke Mother Stroke Diabetes Social History Are you a primary prompt care rn to a significant other at home: No Alcohol intake: current Alcohol intake frequency: holidays/special occasions only Alcohol type: hard liquor Patient Tobacco Use Status: Never used Tobacco Advance Directives Date on File: 04/26/20 Current occupational status: retired 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 Overall normal device function. [id number] Cardiac Device Interrogation, pacemaker Procedure code (CPT) selection complete Assessment & Plan Assessment & Plan (1) Cardiomyopathy: Code(s): I42.9 - Cardiomyopathy, unspecified (2) Heart block: Code(s): I45.9 - Conduction disorder, unspecified Coding Level of Care Code Procedure Only Diagnoses Cardiomyopathy I42.9 Heart block I45.9 CPT Codes Cardiac Device Check - Cardiac Device 12: [id number] Cardiac Device Interrogation, pacemaker ([id number])
== END ==
PROVIDERS: PCP Family Medicine; Visit Provider Internal Medicine
DX: I45.9 Conduction disorder, unspecified (principal); Z95.0 Presence of cardiac pacemaker
CPT/HCPCS: 93294

== ENCOUNTER 2023-02-27 15:09 | Outpatient (AMB) | payer MEDICARE, SELFPAY ==
[2023-02-27 15:21] VITALS: BP 102/52; BMI 26.7
--- NOTE | 2023-02-27 15:21 | MHC.OFFVIS ---
Intake Vital Signs 02/27/23 15:21 Height 5 ft 6 in Weight 165 lb 5.547 oz BMI 26.7 BP 102/52 L Blood Pressure Location Rt brachial Position Sitting Intake Visit Reasons: 3 month follow up w/ device check Senior Product Designer Required: No Allergies cephalexin [From KEFLEX] Allergy (Severe, Verified 02/27/23 15:25) ANGIO EDEMA lisinopril [LISINOPRIL] Allergy (Severe, Verified 02/27/23 15:25) FACIAL EDEMA simvastatin Allergy (Severe, Verified 02/27/23 15:25) renal insufficiency carvedilol [From COREG] Allergy (Intermediate, Verified 02/27/23 15:25) SHORTNESS OF BREATH amlodipine Allergy (Mild, Verified 02/27/23 15:25) renal insuff in combo w/ statin rx Medication List - Last Reconciled 02/27/23 by Elva Burnett, C D REACTOR OPERATOR-C aspirin 81 mg PO DAILY atorvastatin 10 mg PO BEDTIME blood sugar diagnostic As directed carvedilol (Coreg) 12.5 mg PO BID 90 days furosemide 40 mg PO DAILY lancets As directed multivitamin 1 tab PO DAILY HPI 3 month follow up w/ device check HPI Details George is an 82-year-old male with past medical history of hypertension, chronic kidney disease, heart failure with reduced EF, cardiomyopathy, aortic stenosis, pacemaker placement who presents for follow-up. Today reports he has been doing well since his last visit in November. He denies having shortness of breath, chest discomfort, palpitations, presyncope, syncope, PND, orthopnea or edema. He does light physical activity. He attends dialysis 3 times weekly which he says he is tolerating well. Takes all meds as directed. [facility] Medical History (Updated 02/27/23 @ 16:42 by Elva Burnett, C D REACTOR OPERATOR-C) ESRD (end stage renal disease) on dialysis Other and unspecified hyperlipidemia Normally functioning cardiac pacemaker present Essential hypertension Valvular heart disease Chronic heart failure with preserved ejection fraction (HFpEF) Pulmonary hypertension Arthritis Anemia NAVA (dyspnea on exertion) Rhabdomyolysis due to statin therapy Chronic kidney disease Diabetes Atherosclerotic cardiovascular disease Elevated cholesterol Aortic valvular disease Pacemaker CHF (congestive heart failure) HTN (hypertension) Surgical History History of cardiac catheterization (~08/2020) History of tonsillectomy Status cardiac pacemaker S/P excision of lipoma Hx of colonoscopy Family History Father Stroke Mother Stroke Diabetes Social History Are you a primary emergency care attendant to a significant other at home: No Alcohol intake: current Alcohol intake frequency: holidays/special occasions only Alcohol type: hard liquor Patient Tobacco Use Status: Never used Tobacco Advance Directives Date on File: 04/26/20 Current occupational status: retired Current occupation: rt handed Review of Systems Const All systems reviewed & are unremarkable except as noted in HPI and below ENT Denies dizziness Card Denies chest pain, Denies chest pain at rest, Denies chest pain with activity, Denies rapid heart rate, Denies pedal edema, Denies edema, Denies leg edema, Denies lightheadedness, Denies palpitations, Denies dyspnea, Denies dyspnea on exertion and Denies orthopnea Resp Denies cough, Denies dyspnea and Denies dyspnea on exertion GI Denies hematochezia and Denies change in stool character Musc Denies abnormal gait, Denies limited range of motion, Denies muscle cramps, Denies muscle weakness, Denies numbness, Denies radiating pain into limb, Denies stiffness and Denies tingling Neuro Denies abnormal gait, Denies dizziness, Denies numbness and Denies tingling Endo Denies palpitations Physical Exam Vital Signs: Last Vital Signs BP 102/52 L 02/27/23 15:21 BMI result Body Mass Index 26.7 Const General: cooperative, healthy appearing, comfortable and no acute distress Orientation/consciousness: patient oriented x3 Neck Neck: Yes normal visual inspection Resp Effort & Inspection: normal respiratory effort Auscultation: clear to auscultation bilaterally, no crackles, no rales, no rhonchi and no wheezes Cardio Jugular venous distension: no JVD Rate: regular rate Rhythm: regular rhythm Heart sounds: S1 normal heart sound present, S2 normal heart sound present, no murmurs and no rubs Neuro General: patient oriented x3 Extrem General: Yes normal to inspection, No no pedal edema and No calf tenderness Psych Appearance: grossly normal Mental Status: mental status grossly normal Speech and movement: Normal speech and movement present Office Procedures Cardiac Device Check Cardiac Device Check Details: [place] dual-chamber pacemaker interrogation today, battery 5 years, DDDR mode, low rate 50, a threshold 0.75 volts at 0.5 milliseconds, V threshold 1.125 volts at 0.5 milliseconds, a paced 6%, V paced greater than 99%, no changes made [id number] Cardiac Device Check, pacemaker dual lead Procedure code (CPT) selection complete Assessment & Plan Assessment & Plan (1) Cardiomyopathy: Code(s): I42.9 - Cardiomyopathy, unspecified Plan: History of cardiomyopathy, nonischemic. Last echocardiogram done 10/19/2022 shows EF 35%, basal inferior akinetic, grade 2 diastolic dysfunction, [id number] aortic stenosis, mild mitral regurgitation. He does not have signs of heart failure on examination. He reports feeling well recently with good activity tolerance on non dialysis days. Tolerating dialysis well. On last visit his diltiazem and labetalol were changed to carvedilol. Blood pressure is low but in normal range today. He has not had any issues with lightheadedness. Continue current med management. Signs and symptoms of heart failure reviewed. Cardiology follow-up in 6 months, sooner if needed (2) ESRD (end stage renal disease) on dialysis: Code(s): N18.6 - End stage renal disease; Z99.2 - Dependence on renal dialysis Plan: Attends dialysis Sunday, Sunday, Sunday (3) Normally functioning cardiac pacemaker present: Code(s): Z95.0 - Presence of cardiac pacemaker Plan: [place] dual-chamber pacemaker in place, interrogation today shows device is functioning normally. Remote monitoring in use. Next office interrogation due in 6 months. Battery 5 years (4) Aortic valvular disease: Comment: mild aortic stenosis Code(s): I35.9 - Nonrheumatic aortic valve disorder, unspecified Plan: A most recent echo his aortic valve shows mild to moderate stenosis. Murmur noted on examination. Will continue to follow with periodic echoes Coding Level of Care Code Est Pt Level 4 (49982) Diagnoses Cardiomyopathy I42.9 ESRD (end stage renal disease) on dialysis N18.6; Z99.2 Normally functioning cardiac pacemaker present Z95.0 Aortic valvular disease I35.9 CPT Codes Cardiac Device Check - Cardiac Device 2: [id number] Cardiac Device Check, pacemaker dual lead ([id number]) Time Spent (min) 28
== END 2023-02-27 15:59 | disposition home or self-care (01) ==
PROVIDERS: PCP Family Medicine; Visit Provider Nurse Practitioner Family
DX: I42.9 Cardiomyopathy, unspecified (principal); N18.6 End stage renal disease; Z99.2 Dependence on renal dialysis; Z95.0 Presence of cardiac pacemaker; I35.9 Nonrheumatic aortic valve disorder, unspecified
CPT/HCPCS: 93280; 99214

== ENCOUNTER → 2023-02-27 15:09 | Outpatient (BNVA) | payer MEDICARE, SELFPAY | PROVIDERS: PCP Family Medicine; Visit Provider Nurse Practitioner Family | DX: Z45.018 Encounter for adjustment and management of other part of cardiac pacemaker (principal); I42.9 Cardiomyopathy, unspecified; I35.9 Nonrheumatic aortic valve disorder, unspecified; N18.6 End stage renal disease; Z99.2 Dependence on renal dialysis | CPT/HCPCS: 93280; 99212 ==

== ENCOUNTER → 2023-05-16 23:59 | Outpatient (BNV) | payer MEDICARE, SELFPAY ==
--- NOTE | 2023-05-17 09:10 | A.OFFVIS_ITS ---
Intake Intake Visit Reasons: Remote Device Check- [facility] Allergies cephalexin [From KEFLEX] Allergy (Severe, Verified 02/27/23 15:25) ANGIO EDEMA lisinopril [LISINOPRIL] Allergy (Severe, Verified 02/27/23 15:25) FACIAL EDEMA simvastatin Allergy (Severe, Verified 02/27/23 15:25) renal insufficiency carvedilol [From COREG] Allergy (Intermediate, Verified 02/27/23 15:25) SHORTNESS OF BREATH amlodipine Allergy (Mild, Verified 02/27/23 15:25) renal insuff in combo w/ statin rx [facility] Medical History (Updated 02/27/23 @ 16:42 by Elva Burnett, DAIRY EQUIPMENT MECHANIC-C) ESRD (end stage renal disease) on dialysis Other and unspecified hyperlipidemia Normally functioning cardiac pacemaker present Essential hypertension Valvular heart disease Chronic heart failure with preserved ejection fraction (HFpEF) Pulmonary hypertension Arthritis Anemia NAVA (dyspnea on exertion) Rhabdomyolysis due to statin therapy Chronic kidney disease Diabetes Atherosclerotic cardiovascular disease Elevated cholesterol Aortic valvular disease Pacemaker CHF (congestive heart failure) HTN (hypertension) Surgical History History of cardiac catheterization (~08/2020) History of tonsillectomy Status cardiac pacemaker S/P excision of lipoma Hx of colonoscopy Family History Father Stroke Mother Stroke Diabetes Social History Are you a primary intensive care unit nurse to a significant other at home: No Alcohol intake: current Alcohol intake frequency: holidays/special occasions only Alcohol type: hard liquor Patient Tobacco Use Status: Never used Tobacco Advance Directives Date on File: 04/26/20 Current occupational status: retired Current occupation: rt handed Office Procedures Cardiac Device Check Cardiac Device Check Details: Date of service- 05/16/2023 ; Battery life 1.2 years; normal lead parameters; AP 4.4%; ACADEMIC SUPPORT SPECIALIST >99%; no significant arrhythmias. Overall normal device function. [id number] Cardiac Device Interrogation, pacemaker Procedure code (CPT) selection complete Assessment & Plan Assessment & Plan (1) Heart block: Code(s): I45.9 - Conduction disorder, unspecified Plan x Coding Level of Care Code Procedure Only Diagnoses Heart block I45.9 CPT Codes Cardiac Device Check - Cardiac Device 12: [id number] Cardiac Device Interrogation, pacemaker ([id number])
== END ==
PROVIDERS: PCP Family Medicine; Visit Provider Internal Medicine
DX: I45.9 Conduction disorder, unspecified (principal); Z95.0 Presence of cardiac pacemaker
CPT/HCPCS: 93294

== ENCOUNTER 2023-07-24 09:11 | Outpatient (REF) | payer MEDICARE, SELFPAY ==
--- NOTE | ~2023-07-24 | XR_ITS ---
EXAMINATION: XR HIP, RIGHT CLINICAL INFORMATION: Right hip pain. COMPARISON: 05/01/2016 and 11/04/2020 TECHNIQUE: Two views of the right hip. FINDINGS: Chronic severe osteoarthritic deformity of the right hip. Findings suggest chronic and worsening mechanical erosions of the femoral head and acetabulum. Again noted is subarticular sclerosis and subarticular cystic change of the deformed hip. No evidence of acute fracture. There appears to be chronic mild widening of the medial hip joint space from the slight superolateral migration of the femoral head within the eroded acetabulum. There is extensive peripheral vascular calcification. 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
== END 2023-07-24 09:12 | disposition home or self-care (01) ==
LOC: HO.XRAY 09:11
PROVIDERS: PCP Family Medicine; Visit Provider Family Medicine
DX: M25.551 Pain in right hip (principal)
CPT/HCPCS: 73502

== ENCOUNTER 2023-08-09 10:24 | Outpatient (REF) | payer MEDICARE, SELFPAY ==
--- NOTE | ~2023-08-09 | XR_ITS ---
EXAMINATION: XR PELVIS CLINICAL INFORMATION: Pain in unspecified hip. COMPARISON: 07/24/2023, 11/04/2020. TECHNIQUE: AP view of the pelvis. FINDINGS: The bones are diffusely demineralized. Advanced degenerative changes in the imaged lower lumbar spine. Redemonstration of severe chronic osteoarthritic deformity of the right hip with obliteration of the joint space, destructive remodeling and erosions of subjacent femoral and acetabular articular surfaces with periarticular sclerosis and cystic change. Redemonstration of medial widening of the medial hip joint space. Increased superior lateral migration of the femoral head. Moderate degenerative changes on single AP view of the left hip. Extensive vascular calcifications. XR/XR pelvis 1-2V IMPRESSION: Redemonstration of severe chronic osteoarthritic deformity of the right hip with obliteration of the joint space, destructive remodeling and erosions of subjacent femoral and acetabular articular surfaces with periarticular sclerosis and cystic change. Redemonstration of medial widening of the medial hip joint space. Increased superior lateral migration of the femoral head. Bones are diffusely demineralized. Evaluation for underlying fracture or other pathology is limited on the single view provided. MRI should be considered for further evaluation.
== END 2023-08-09 10:25 | disposition home or self-care (01) ==
LOC: HO.HOSX 10:24
PROVIDERS: Visit Provider Physician Assistant
DX: M87.051 Idiopathic aseptic necrosis of right femur (principal)
CPT/HCPCS: 72170; 99212

== ENCOUNTER 2023-08-09 12:08 | Outpatient (AMB) | payer MEDICARE, SELFPAY ==
--- NOTE | 2023-08-09 12:29 | MHC.OFFVIS ---
Vital Signs 08/09/23 12:35 Height 5 ft 6 in Weight 165 lb BMI 26.6 Intake Visit Reasons: OV-Chronic right hip pain Intake Note: George an 82 year old male who presents today for a follow up of right hip pain. Patient reports his pain is worse in the mornings and he has stiffness while in a sitting position. He has tried at home exercises however this only provides relief while he is doing the exercises. His pain is located at the posterior aspect of hip and at times in his groin area. He has difficulty with stair use and holding heavy items. Finds no relief with Tylenol. He uses a cane and walker with ambulation. Allergies cephalexin [From KEFLEX] Allergy (Severe, Verified 08/09/23 12:39) ANGIO EDEMA lisinopril [LISINOPRIL] Allergy (Severe, Verified 08/09/23 12:39) FACIAL EDEMA simvastatin Allergy (Severe, Verified 08/09/23 12:39) renal insufficiency carvedilol [From COREG] Allergy (Intermediate, Verified 08/09/23 12:39) SHORTNESS OF BREATH amlodipine Allergy (Mild, Verified 08/09/23 12:39) renal insuff in combo w/ statin rx Medication List - Last Reconciled 08/09/23 by Brian Bajwa PA-C aspirin 81 mg PO DAILY atorvastatin 10 mg PO BEDTIME blood sugar diagnostic As directed carvedilol (Coreg) 12.5 mg PO BID 90 days furosemide 40 mg PO DAILY lancets As directed multivitamin 1 tab PO DAILY HPI HPI OV-Chronic right hip pain: Details: 82-year-old male who returns to the office today for a follow-up of chronic right hip pain. He continues to have pain at the posterior aspect of his right hip which occasionally radiates to the groin area. His pain is aggravated in the mornings. He also c/o stiffness while in a sitting position. He has difficulty using the stairs and holding heavy items. He has tried home exercises however this only provides him relief when he is doing the exercises. He finds no relief with Tylenol. He uses a cane and a walker for ambulation. He has a pacemaker implantation with Dr. Alexander. He sees Dr. Gonzalez from nephrology for kidney dialysis every m/w/f since May 2020. His PCP is Dr. Trujillo. COUNT INCLUDES THE [facility] Medical History (Updated 08/09/23 @ 13:29 by Brian Bajwa PA-C) ESRD (end stage renal disease) on dialysis Other and unspecified hyperlipidemia Normally functioning cardiac pacemaker present Essential hypertension Valvular heart disease Chronic heart failure with preserved ejection fraction (HFpEF) Pulmonary hypertension Arthritis Anemia NAVA (dyspnea on exertion) Rhabdomyolysis due to statin therapy Chronic kidney disease Diabetes Atherosclerotic cardiovascular disease Elevated cholesterol Aortic valvular disease Pacemaker CHF (congestive heart failure) HTN (hypertension) Surgical History History of cardiac catheterization (~08/2020) History of tonsillectomy Status cardiac pacemaker S/P excision of lipoma Hx of colonoscopy Family History Father Stroke Mother Stroke Diabetes Social History Are you a primary chiropractic care to a significant other at home: No Alcohol intake: current Alcohol intake frequency: holidays/special occasions only Alcohol type: hard liquor Patient Tobacco Use Status: Never used Tobacco Advance Directives Date on File: 04/26/20 Current occupational status: retired Current occupation: rt handed Review of Systems Const All systems reviewed & are unremarkable except as noted in HPI and below Physical Exam Vital Signs: BMI result Body Mass Index 26.6 Extrem Other: Right hip: Normal to inspection. He has significant pain and limited ROM on the right hip. Pain with hip flexion. NVI. 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 We had a lengthy discussion about the extent of his AVN and options available which include surgical intervention. He is interested in pursuing Total knee arthroplasty to improve his functional capacity and daily activities. I explained to him the procedure in detail, the hospital stays and details about post op rehab and precautions. He does understand all this and would like to move forward. I did put him in contact with our Nurse Navigator, Jennifer, who will set him up with pre op planning and book accordingly. All questions were answered. Orders: Orders XR pelvis 1-2V Today M25.559 - Pain in unspecified hip Patient Instructions: Scribed for Brian Bajwa PA-C, by Alber Adamson senior medical technologist, on 08/09/2023 at 12:30 PM EST. I, Brian Bajwa PA-C, have personally reviewed and agree with the information entered by the scribe. Coding Level of Care Code Est Pt Level 4 (67883) Diagnoses Avascular necrosis of bone of right hip M87.051
[2023-08-09 12:35] VITALS: BMI 26.6
== END 2023-08-09 13:30 | disposition home or self-care (01) ==
LOC: HO.HOS 12:08
PROVIDERS: PCP Family Medicine; Visit Provider Physician Assistant
DX: M87.051 Idiopathic aseptic necrosis of right femur (principal)
CPT/HCPCS: 99214

== ENCOUNTER → 2023-08-15 23:59 | Outpatient (BNV) | payer MEDICARE, SELFPAY ==
--- NOTE | 2023-08-19 17:17 | A.OFFVIS_ITS ---
Intake Visit Reasons: Remote device check- [facility] Allergies cephalexin [From KEFLEX] Allergy (Severe, Verified 08/09/23 12:39) ANGIO EDEMA lisinopril [LISINOPRIL] Allergy (Severe, Verified 08/09/23 12:39) FACIAL EDEMA simvastatin Allergy (Severe, Verified 08/09/23 12:39) renal insufficiency carvedilol [From COREG] Allergy (Intermediate, Verified 08/09/23 12:39) SHORTNESS OF BREATH amlodipine Allergy (Mild, Verified 08/09/23 12:39) renal insuff in combo w/ statin rx [facility] Medical History (Updated 08/09/23 @ 13:29 by Brian Bajwa PA-C) ESRD (end stage renal disease) on dialysis Other and unspecified hyperlipidemia Normally functioning cardiac pacemaker present Essential hypertension Valvular heart disease Chronic heart failure with preserved ejection fraction (HFpEF) Pulmonary hypertension Arthritis Anemia NAVA (dyspnea on exertion) Rhabdomyolysis due to statin therapy Chronic kidney disease Diabetes Atherosclerotic cardiovascular disease Elevated cholesterol Aortic valvular disease Pacemaker CHF (congestive heart failure) HTN (hypertension) Surgical History History of cardiac catheterization (~08/2020) History of tonsillectomy Status cardiac pacemaker S/P excision of lipoma Hx of colonoscopy Family History Father Stroke Mother Stroke Diabetes Social History Are you a primary neonatal intensive care unit nurse to a significant other at home: No Alcohol intake: current Alcohol intake frequency: holidays/special occasions only Alcohol type: hard liquor Patient Tobacco Use Status: Never used Tobacco Advance Directives Date on File: 04/26/20 Current occupational status: retired Current occupation: rt handed Office Procedures Cardiac Device Check Cardiac Device Check Details: Date of service- 08/15/2023 ; Battery life >1 years; normal lead parameters; AP 4.6%; APPRENTICE INSTRUMENT TECHNICIAN >99%; no significant arrhythmias. Overall normal device function. [id number] Cardiac Device Interrogation, pacemaker Procedure code (CPT) selection complete Assessment & Plan Assessment & Plan (1) Heart block: Code(s): I45.9 - Conduction disorder, unspecified Category: Medical Plan x Coding Level of Care Code Procedure Only Diagnoses Heart block I45.9 CPT Codes Cardiac Device Check - Cardiac Device 12: [id number] Cardiac Device Interrogation, pacemaker ([id number])
== END ==
PROVIDERS: PCP Family Medicine; Visit Provider Internal Medicine
DX: I45.9 Conduction disorder, unspecified (principal); Z95.0 Presence of cardiac pacemaker
CPT/HCPCS: 93294

== ENCOUNTER 2023-08-23 12:35 | Emergency (ER) | payer MEDICARE, SELFPAY ==
--- NOTE | ~2023-08-23 | CT_ITS ---
EXAMINATION: CT CHEST, ABDOMEN AND PELVIS WITH CONTRAST CLINICAL INFORMATION: Reason for Exam Right chest wall ecchymosis. hematoma? Fracture? COMPARISON: No pertinent prior studies are available for comparison. TECHNIQUE: Multidetector volumetric imaging was performed from the thoracic inlet through the pubic symphysis without IV contrast. Sagittal and coronal reformatted images were obtained on the technologist's workstation. This CT examination was performed using dose optimization techniques as appropriate, variously including the following: *Automated exposure control *Adjustment of mA and/or kV according to patient size (this includes techniques or standardized protocols for targeted exams where dose is matched to indication/reason for exam; i.e. extremities or head) *Use of iterative reconstruction technique DLP: 395 mGy-cm FINDINGS: CHEST: Lung: The lungs are clear without worrisome focal opacity or nodule. Some small pulmonary micronodules are seen, none larger than 3 mm. Mediastinum: Heart size normal. Bipolar pacemaker is present. The central vascular structures are unremarkable. No hilar or mediastinal lymphadenopathy. Coronary Artery Calcium: Moderate Pericardium/Pleura: No significant effusion. No pleural mass or thickening. Chest Wall/Axilla: There is a chest wall hematoma present on the right behind the pectoralis muscles which measures 9.4 x 7.3 x 3.7 cm ABDOMEN/PELVIS: Peritoneal Space: No significant free air or free fluid identified. Liver, Gallbladder, Biliary Tree: The liver is normal in size, shape, and attenuation. No focal hepatic lesion or biliary ductal dilatation is present. The gallbladder is filled with calcified gallstones without obvious pericholecystic inflammatory changes. Pancreas: Unremarkable Spleen: Unremarkable Adrenal Glands: Unremarkable Kidneys and Ureters: The kidneys are normal in size, shape, and attenuation multiple calcifications are seen in the kidneys consistent with nephrolithiasis if this patient has not received recently.. No hydronephrosis or hydroureter. No perinephric stranding. A benign right lower pole parapelvic 3.8 cm Bosniak class I renal cyst is noted which requires no additional imaging or follow up. No solid renal masses are seen. Bladder: The bladder is poorly filled. There is an asymmetric posterior soft tissue density measuring 2.3 cm which most likely represents impression from a mildly enlarged prostate. Gastrointestinal Tract: The small and large bowel are unremarkable. Some scattered colonic diverticula. The appendix is unremarkable. Abdominal Wall: No significant hernia is appreciated. Lymph Nodes: No lymphadenopathy. Vascular: Calcific atherosclerotic changes are present in the aorta and iliofemoral vessels. There is no evidence of an abdominal aortic aneurysm.. The IVC appears unremarkable. PELVIC VISCERA: There is mild BPH. Seminal vesicles appear normal. OSSEUS STRUCTURES: Severe degenerative changes are present in both shoulders. There are calcified intraosseous bodies seen in both shoulders with bilateral shoulder joint effusions, right greater than left. Severe degenerative changes are present in the right hip with joint effusion with milder changes on the left. Marked degenerative changes are seen throughout the visualized spine. CT/CT abdomen pelvis wo IV con IMPRESSION: 1. Right chest wall hematoma. 2. Incidental note made of pulmonary micronodules, cholelithiasis, BPH, colonic diverticulosis and severe degenerative changes in the shoulders and right hip. Fleischner guidelines were followed.
--- NOTE | ~2023-08-23 | CT_ITS ---
EXAMINATION: CT CERVICAL SPINE WITHOUT CONTRAST CLINICAL INFORMATION: Fracture. Pain after falling COMPARISON: None available. TECHNIQUE: Axial helical scans with sagittal coronal reformats. This CT examination was performed using dose optimization techniques as appropriate, variously including the following: *Automated exposure control *Adjustment of mA and/or kV according to patient size (this includes techniques or standardized protocols for targeted exams where dose is matched to indication/reason for exam; i.e. extremities or head) *Use of iterative reconstruction technique DLP: 395 mGy-cm FINDINGS: There is fusion noted C5-T2 with anterior spondylosis and posterior spurring. There is dystrophic calcification in the posterior nuchal ligament in the mid C-spine. No fracture or destructive process. No significant encroachment on the spinal canal. Prevertebral soft tissues are normal. CT/CT cervical spine wo IV con IMPRESSION: Extensive chronic change. No fracture. Fleischner guidelines were followed.
--- NOTE | ~2023-08-23 | CT_ITS ---
EXAMINATION: CT HEAD WITHOUT CONTRAST CLINICAL INFORMATION: Headaches. COMPARISON: Prior CT 03/06/2017 TECHNIQUE: Contiguous axial imaging was performed from the skull base to vertex without intravenous administration of contrast. This CT examination was performed using dose optimization techniques as appropriate, variously including the following: *Automated exposure control *Adjustment of mA and/or kV according to patient size (this includes techniques or standardized protocols for targeted exams where dose is matched to indication/reason for exam; i.e. extremities or head) *Use of iterative reconstruction technique DLP: 646 mGy-cm FINDINGS: There is prominence to the sulci and ventricles with deep white matter gliosis noted. No evidence for intra or extra-axial fluid collection, hemorrhage, mass, or mass effect. Calvarium is intact. There is dense calcification in the carotid siphons. Incidental note is made of a calcified density seen within the left maxillary sinus which is not fully included on this head CT. This is however unchanged from 03/06/2017. CT/CT head/brain wo IV con IMPRESSION: No intracranial hemorrhage as questioned.
[2023-08-23 13:16] VITALS: BP 153/53; PULSE 68; RESP 18; TEMP 36.6; O2SAT 99; BMI 26.6
--- NOTE | 2023-08-23 13:21 | ED.GENADULT ---
HPI - General Adult General Chief complaint: General Medical Stated complaint: Sent by for CAT scan Time Seen by Provider: 08/23/23 14:17 History of Present Illness HPI narrative: The patient is an 82-year-old male who was a dialysis patient. He gets dialysis on Sunday, Sunday, and Sunday. He comes to the emergency room because of a very large contusion on the right chest associated with full lump near the axilla. He saw his regular doctor 2 days ago when the symptoms were less severe and the appearance of his chest was much more benign. Today he had significant the much larger area of ecchymosis contacted his regular doctor again and was referred to the emergency room. The patient says that he has to use his right arm a lot because of arthritis and difficulty getting around and he often uses the right arm fairly vigorously to help himself get around. He denies any definite trauma however. He has had no cough or sputum. He has had no fever, sweats, chills. He has not on any anticoagulation medication. He takes a baby aspirin daily. Related Data Home Medications ?Medication ?Instructions ?Recorded ?Confirmed aspirin 81 mg tablet,delayed 81 mg PO DAILY 01/14/20 08/09/23 release atorvastatin 10 mg tablet 10 mg PO BEDTIME 01/14/20 08/09/23 multivitamin 1 tab PO DAILY 01/14/20 08/09/23 blood sugar diagnostic #10 ea 04/20/20 11/21/22 lancets 33 gauge #100 ea 04/20/20 11/21/22 furosemide 40 mg tablet 40 mg PO DAILY 08/04/20 08/09/23 Previous Rx's ?Medication ?Instructions ?Recorded carvedilol 12.5 mg tablet (Coreg) 12.5 mg PO BID 90 days #180 tabs 11/21/22 Allergies Allergy/AdvReac Type Severity Reaction Status Date / Time cephalexin [From KEFLEX] Allergy Severe ANGIO EDEMA Verified 08/23/23 13:18 lisinopril [LISINOPRIL] Allergy Severe FACIAL Verified 08/23/23 13:18 EDEMA simvastatin Allergy Severe renal Verified 08/23/23 13:18 insufficiency amlodipine Allergy Mild renal Verified 08/23/23 13:18 insuff in combo w/ statin rx Review of Systems Review of Systems: Yes all other systems are reviewed and are negative [facility] Past Medical History Medical History (Updated 08/23/23 @ 16:54 by Jd Corral MD) ESRD (end stage renal disease) on dialysis Other and unspecified hyperlipidemia Normally functioning cardiac pacemaker present Essential hypertension Valvular heart disease Chronic heart failure with preserved ejection fraction (HFpEF) Pulmonary hypertension Arthritis Anemia NAVA (dyspnea on exertion) Rhabdomyolysis due to statin therapy Chronic kidney disease Diabetes Atherosclerotic cardiovascular disease Elevated cholesterol Aortic valvular disease Pacemaker CHF (congestive heart failure) HTN (hypertension) Surgical History History of cardiac catheterization (~08/2020) History of tonsillectomy Status cardiac pacemaker S/P excision of lipoma Hx of colonoscopy Family History Family History Father Stroke Mother Stroke Diabetes Social History Social History Are you a primary personal care attendant to a significant other at home: No Alcohol intake: current Alcohol intake frequency: holidays/special occasions only Alcohol type: hard liquor Patient Tobacco Use Status: Never used Tobacco Smoked in Last 30 Days: No Use of substances other than those prescribed or required for medical reasons: No Advance Directives: Yes Advance Directives on File: Yes Advance Directives Date on File: 04/26/20 Do you have a plan to hurt others: No Plan Current occupational status: retired Current occupation: rt handed Physical Exam ED Vital Signs: Vital Signs - 24 hr 08/23/23 13:16 08/23/23 17:00 Temperature 98 F 98 F Pulse Rate 68 68 Respiratory Rate 18 18 Blood Pressure 153/53 H 153/53 H Pulse Oximetry 99 99 Oxygen Delivery Method Room Air Room Air BMI result Body Mass Index 26.6 Const Other: The patient is an 82-year-old male who was awake and alert and does not appear obviously ill. HENMT Other: Face is symmetrical, mucous membranes moist Eyes Other: Pupils are round equal, conjunctivae clear Neck Other: No JVD Chest Other: There is a large area of ecchymosis to the skin of the right chest wall. This seems to center around the anterior right axilla. There is a palpable focal area of swelling anterior to the right axilla approximately 10 cm across Resp Effort & Inspection: normal respiratory effort Auscultation: clear to auscultation bilaterally Cardio Rate: regular rate Rhythm: regular rhythm Heart sounds: S1 normal heart sound present and S2 normal heart sound present GI Other: Abdomen is soft and nontender Skin Other: There is a large area of ecchymotic skin changes to the right chest. The skin is intact. Neuro Other: The patient is awake, alert, appropriate, normal mental status, neurologically intact Extrem Other: I can put the right shoulder through a fairly good range of motion. Course Course Course Narrative: RME: 82-year-old male presents to ED for right chest wall right upper flank ecchymosis. Patient states had small lump right upper chest and it grew. Patient denies any trauma. Patient is sent from PCP. Positive for right chest right upper flank tenderness on palpation. Positive for right upper chest swelling hematoma. Labs chest CT head CT scan ordered. Patient denies any trauma. Negative for signs of head CT trauma. Due to kidney failure can not do IV contrast. Medical Decision Making Medical Decision Making MDM Narrative: The patient is a dialysis patient. He has on a baby aspirin. He has not on anticoagulation. He has no history of any bleeding diathesis. He has what seems to be a spontaneous hemorrhage anterior to the right axilla with a large degree of ecchymotic skin change to the right chest generally. There is no associated fever. There was no trauma. A seems to be a spontaneous process which could be related to use of the right arm or perhaps positioning he assumes during dialysis. His hemoglobin is stable. He is hemodynamically stable. I discussed the case with Dr. Parra of surgery. We agreed that there did not seem to be any role for an acute procedure of any kind. The patient will be advised to rest and use ice packs. He should stop aspirin. He should follow up with his regular doctor. Return if worse. Lab Data 08/23/23 15:05 08/23/23 15:05 Labs: Lab Results 08/23/23 Range/Units 15:05 WBC 9.3 (4.8-10.8) X10*3/uL RBC 3.05 L (4.60-5.80) X10*6/uL Hgb 10.6 L (14.0-18.0) g/dl Hct 31.1 L (42.0-52.0) % MCV 102.0 H (80.0-98.0) fL MCH 34.8 H (27.0-33.0) pg MCHC 34.1 (31.0-36.0) g/dl RDW 13.0 (11.0-16.0) % Plt Count 130 L (160-400) X10*3/uL MPV 10.4 (9.4-12.4) fL Immature Gran % (Auto) 1.0 H (0.0-0.4) % Neut % (Auto) 81.8 H (45-73) % Lymph % (Auto) 6.6 L (20-40) % Whitfield % (Auto) 8.9 (2-11) % Eos % (Auto) 1.3 (0-4) % Baso % (Auto) 0.4 (0-2) % Lymph # (Auto) 0.6 L (1.2-4.9) X10*3/uL Whitfield # (Auto) 0.8 (0.1-1.2) X10*3/uL Eos # (Auto) 0.1 (0.0-0.4) X10*3/uL Baso # (Auto) 0.0 (0.0-0.2) X10*3/uL Abs Immat Gran (auto) 0.09 H (0.00-0.03) X10*3/uL Absolute Neuts (auto) 7.6 (2.0-8.3) x10*3/uL Absolute Nucleated RBC 0.000 (0.0-0.012) X10*3/uL Nucleated RBC % (auto) 0.0 (0.0-0.2) /100WBC PT 12.2 (11.1-13.3) SEC INR 1.0 (0.9-1.1) APTT 30.4 (26.0-36.8) SEC Sodium 139 (135-145) mmol/L Potassium 4.3 (3.3-5.1) mmol/L Chloride 100 (96-108) mmol/L Carbon Dioxide 26 (22-29) mmol/L Anion Gap 17 (12-20) BUN 56 H (9-16) mg/dL Creatinine 5.40 H* (0.5-1.4) mg/dL Estim Creat Clear Calc 9.4 Estimated GFR 10 Random Glucose 98 (60-115) mg/dL Calcium 9.1 D (8.4-10.2) mg/dL Total Bilirubin 0.5 (0.0-1.0) mg/dL AST 11 (5-37) U/L ALT 22 (0-40) U/L Alkaline Phosphatase 96 (39-117) U/L Total Protein 6.9 (6.5-8.0) g/dL Albumin 3.8 (3.5-5.0) g/dL Discharge Plan Discharge Clinical Impression: Hematoma of right chest wall Patient Disposition: Home, Self-Care Additional Instructions: You have a large hematoma near your right armpit. There is also a much larger area of discolored skin. Unfortunately it does not seem as there is much that we can do to help fix this bruising acutely. I think the best course for management of this problem would be to apply large ice bags to the area several times a day. Apply ice packs for 15-20 minutes every couple of hours. Always keep a dry cloth between the ice pack on your skin. I think it would also be good for you to hold your aspirin until this has improved. To follow up with Dr. Trujillo next week. You should have blood testing to make sure that your blood counts remain good (they are currently good). Return to the emergency room if you feel significantly worse. Prescriptions: No Action multivitamin Tablet 1 tab PO DAILY atorvastatin 10 mg Tablet 10 mg PO BEDTIME aspirin [Aspir-81] 81 mg Tablet,Delayed Release (Dr/Ec) 81 mg PO DAILY furosemide 40 mg tablet 40 mg PO DAILY (DME) lancets 33 gauge misc See Rx Instructions Not Applicable DAILY Qty: 100 Rx Instructions: As directed (DME) OneTouch Ultra Blue Test Strip Strip See Rx Instructions Not Applicable DAILY Qty: 10 Rx Instructions: As directed carvedilol [Coreg] 12.5 mg tablet 12.5 mg PO BID 90 Days Qty: 180 1RF Rx Instructions: must administer with a meal/food Referrals: Edwar Trujillo MD [Primary Care Provider] - (Chest wall hematoma) Interventions: ED Discharge Assessment Last Done: 08/23/23 17:00 Discharge Date/Time: 08/23/23 17:01 Print Language: Malian
[2023-08-23 15:09] LABS: MANUAL DIFF FLAG NO
[2023-08-23 15:13] LABS: Basophils Percent Auto 0.4 % (0-2); Eosinophils Absolute Auto 0.1 X10*3/uL (0.0-0.4); Eosinophils Percent Auto 1.3 % (0-4); Hematocrit 31.1 % (42.0-52.0); Hemoglobin 10.6 g/dl (14.0-18.0); Imm Gran Abs Auto 0.09 X10*3/uL (0.00-0.03); Lymphocytes Absolute Auto 0.6 X10*3/uL (1.2-4.9); Lymphocytes Percent Auto 6.6 % (20-40); Mean Corpuscular HGB Conc 34.1 g/dl (31.0-36.0); Mean Corpuscular Hemoglobin 34.8 pg (27.0-33.0); Mean Platelet Volume 10.4 fL (9.4-12.4); Monocytes Absolute Auto 0.8 X10*3/uL (0.1-1.2); Monocytes Percent Auto 8.9 % (2-11); Neutrophils Absolute Auto 7.6 x10*3/uL (2.0-8.3); Neutrophils Percent Auto 81.8 % (45-73); Platelet Count 130 X10*3/uL (160-400); Red Blood Count 3.05 X10*6/uL (4.60-5.80); White Blood Count 9.3 X10*3/uL (4.8-10.8)
[2023-08-23 15:17] LABS: Prothrombin Time 12.2 SEC (11.1-13.3)
[2023-08-23 15:20] LABS: Partial Thromboplastin Time 30.4 SEC (26.0-36.8)
[2023-08-23 15:33] LABS: Alanine Aminotransferase 22 U/L (0-40); Albumin Level 3.8 g/dL (3.5-5.0); Alkaline Phosphatase 96 U/L (39-117); Anion Gap 17 (12-20); Aspartate Amino Transferase 11 U/L (5-37); Bilirubin Total 0.5 mg/dL (0.0-1.0); Blood Urea Nitrogen 56 mg/dL (9-16); Calcium 9.1 mg/dL (8.4-10.2); Carbon Dioxide 26 mmol/L (22-29); Chloride 100 mmol/L (96-108); Creatinine Clr Calc Pharmacy 9.4; Estimated Glomerular Filt Rate 10; Glucose Random 98 mg/dL (60-115); Potassium 4.3 mmol/L (3.3-5.1); Sodium 139 mmol/L (135-145); Total Protein 6.9 g/dL (6.5-8.0)
[2023-08-23 17:00] VITALS: BP 153/53; PULSE 68; RESP 18; TEMP 36.6; O2SAT 99
== END 2023-08-23 17:01 | disposition home or self-care (01) ==
PROVIDERS: Physician Assistant; Emergency Provider Emergency Medicine; PCP Family Medicine
DX: S20.211A Contusion of right front wall of thorax, initial encounter (principal); M54.2 Cervicalgia; R51.9 Headache, unspecified; M79.601 Pain in right arm; R10.11 Right upper quadrant pain; R07.89 Other chest pain; W01.10XA Fall on same level from slipping, tripping and stumbling with subsequent striking against unspecified object, initial encounter; Y93.9 Activity, unspecified; Y92.9 Unspecified place or not applicable; Y99.8 Other external cause status; Z79.899 Other long term (current) drug therapy
CPT/HCPCS: 36415; 70450; 71250; 72125; 74176; 80053; 85025; 85610; 85730; 99284

== ENCOUNTER 2023-08-28 13:02 | Outpatient (AMB) | payer MEDICARE, SELFPAY ==
--- NOTE | 2023-08-28 13:11 | MHC.OFFVIS ---
Vital Signs 08/28/23 13:12 Height 5 ft 5 in Weight 161 lb 13.109 oz BMI 26.9 BP 124/52 L Blood Pressure Location Rt brachial Position Sitting Respiration 70 H Intake Visit Reasons: [address] [facility] ck/pre-op ortho Quality Checker Required: No Allergies cephalexin [From KEFLEX] Allergy (Severe, Verified 08/28/23 13:21) ANGIO EDEMA lisinopril [LISINOPRIL] Allergy (Severe, Verified 08/28/23 13:21) FACIAL EDEMA simvastatin Allergy (Severe, Verified 08/28/23 13:21) renal insufficiency amlodipine Allergy (Mild, Verified 08/28/23 13:21) renal insuff in combo w/ statin rx Medication List - Last Reconciled 08/28/23 by Elva Burnett NP-C aspirin 81 mg PO DAILY atorvastatin 10 mg PO BEDTIME blood sugar diagnostic As directed carvedilol (Coreg) 12.5 mg PO BID 90 days furosemide 40 mg PO DAILY lancets As directed multivitamin 1 tab PO DAILY HPI HPI [address] [facility] ck/pre-op ortho: Details: George is an 82-year-old male with past medical history of hypertension, chronic kidney disease, heart failure with reduced EF, cardiomyopathy, aortic stenosis, pacemaker placement who presents for follow-up. Today reports he has has been feeling well since his last visit in February. He denies having shortness of breath, chest discomfort, palpitations, presyncope, syncope, PND, orthopnea or edema. He does light physical activity. His activity is limited by right hip pain. He is hoping to undergo a right total hip replacement in the near future. He attends dialysis 3 times weekly which he says he is tolerating well. Takes all meds as directed. [facility] Medical History ESRD (end stage renal disease) on dialysis Other and unspecified hyperlipidemia Normally functioning cardiac pacemaker present Essential hypertension Valvular heart disease Chronic heart failure with preserved ejection fraction (HFpEF) Pulmonary hypertension Arthritis Anemia NAVA (dyspnea on exertion) Rhabdomyolysis due to statin therapy Chronic kidney disease Diabetes Atherosclerotic cardiovascular disease Elevated cholesterol Aortic valvular disease Pacemaker CHF (congestive heart failure) HTN (hypertension) Surgical History History of cardiac catheterization (~08/2020) History of tonsillectomy Status cardiac pacemaker S/P excision of lipoma Hx of colonoscopy Family History Father Stroke Mother Stroke Diabetes Social History Are you a primary dog daycare provider to a significant other at home: No Alcohol intake: current Alcohol intake frequency: holidays/special occasions only Alcohol type: hard liquor Patient Tobacco Use Status: Never used Tobacco Advance Directives Date on File: 04/26/20 Current occupational status: retired Current occupation: rt handed Review of Systems Const All systems reviewed & are unremarkable except as noted in HPI and below ENT Denies dizziness Card Denies chest pain, Denies chest pain at rest, Denies chest pain with activity, Denies rapid heart rate, Denies pedal edema, Denies edema, Denies leg edema, Denies lightheadedness, Denies palpitations, Denies dyspnea, Denies dyspnea on exertion and Denies orthopnea Resp Denies cough, Denies dyspnea and Denies dyspnea on exertion GI Denies hematochezia and Denies change in stool character Musc Details: Right hip pain, ambulates with walker Reports abnormal gait, Reports limited range of motion, Denies muscle cramps, Denies muscle weakness, Denies numbness, Denies radiating pain into limb, Denies stiffness and Denies tingling Neuro Reports abnormal gait, Denies dizziness, Denies numbness and Denies tingling Endo Denies palpitations Physical Exam Vital Signs: Last Vital Signs Resp 70 H 08/28/23 13:12 BP 124/52 L 08/28/23 13:12 BMI result Body Mass Index 26.9 Const Other: Facial grimace with ambulation, apparent discomfort General: cooperative, healthy appearing, comfortable and no acute distress Orientation/consciousness: patient oriented x3 Neck Neck: Yes normal visual inspection Resp Effort & Inspection: normal respiratory effort Auscultation: clear to auscultation bilaterally, no crackles, no rales, no rhonchi and no wheezes Cardio Jugular venous distension: no JVD Rate: regular rate Rhythm: regular rhythm Heart sounds: S1 normal heart sound present, S2 normal heart sound present, no murmurs and no rubs Neuro General: patient oriented x3 Extrem General: Yes normal to inspection, No no pedal edema and No calf tenderness Psych Appearance: grossly normal Mental Status: mental status grossly normal Speech and movement: Normal speech and movement present Office Procedures Cardiac Device Check Cardiac Device Check Details: [employer] dual-chamber pacemaker interrogation today, battery 1.1 years, DDDR mode low rate 50, atrial threshold 0.75 volts at 0.5 milliseconds, ventricular threshold 1 volt at 0.5 milliseconds, no alerts, a paced 3.8% of time, V paced greater than 99% of time, no AT/AF [address]-CO Cardiac Device Check, pacemaker dual lead Procedure code (CPT) selection complete EKG Details: Today, read by me, atrial sensed, ventricular paced rhythm, rate 70 10440-[id number], Complete Assessment & Plan Assessment & Plan (1) Cardiomyopathy: Code(s): I42.9 - Cardiomyopathy, unspecified Category: Medical Plan: History of cardiomyopathy, nonischemic. Last echocardiogram done 10/19/2022 shows EF 35%, basal inferior akinetic, grade 2 diastolic dysfunction, [id number] aortic stenosis, mild mitral regurgitation. He does not have signs of heart failure on examination. He reports feeling well recently with no concerning shortness of breath or edema. His activity is limited by right hip pain. Tolerating dialysis well. Blood pressure is in normal range today. He has not had any issues with lightheadedness. Continue carvedilol. He is hoping to undergo hip surgery in the near future. Will update echocardiogram. Signs and symptoms of heart failure reviewed. Cardiology follow-up in 6 months, sooner if needed (2) ESRD (end stage renal disease) on dialysis: Code(s): N18.6 - End stage renal disease; Z99.2 - Dependence on renal dialysis Category: Medical Plan: Attends dialysis Sunday, Sunday, Sunday (3) Normally functioning cardiac pacemaker present: Code(s): Z95.0 - Presence of cardiac pacemaker Category: Medical Plan: [employer] dual-chamber pacemaker in place, interrogation today shows device is functioning normally. Remote monitoring in use. Next office interrogation due in 6 months. (4) Aortic valvular disease: Comment: mild aortic stenosis Code(s): I35.9 - Nonrheumatic aortic valve disorder, unspecified Category: Medical Plan: A most recent echo his aortic valve shows mild to moderate stenosis. Murmur noted on examination. No cardinal signs of severe . Will update echo. (5) Preop cardiovascular exam: Code(s): Z01.810 - Encounter for preprocedural cardiovascular examination Category: Medical Plan: Preop for total hip replacement with Dr. Pleitez. No date yet. He did undergo cardiac catheterization 08/17/2020 showing only RCA 1st AC marginal 75% stenosis. His stress test prior to that procedure was felt to be a false-positive. His CAD is minimal. He has no anginal symptoms. He does have cardiomyopathy and aortic stenosis. Will update echocardiogram. Preop clearance will be finalized once echo results are known. Plan Time spent on chart review, documentation, interview and assessment Orders: Orders CA echo transthoracic complete Today I35.9 - Nonrheumatic aortic valve disorder, unspecified, I42.9 - Cardiomyopathy, unspecified, Z01.810 - Encounter for preprocedural cardiovascular examination Coding Level of Care Code Est Pt Level 4 (79836) Diagnoses Cardiomyopathy I42.9 ESRD (end stage renal disease) on dialysis N18.6; Z99.2 Normally functioning cardiac pacemaker present Z95.0 Aortic valvular disease I35.9 Preop cardiovascular exam Z01.810 CPT Codes Cardiac Device Check - Cardiac Device 2: [id number] Cardiac Device Check, pacemaker dual lead ([id number]) EKG - CPT: 73376-[id number], Complete ([id number])
[2023-08-28 13:12] VITALS: BP 124/52; RESP 70; BMI 26.9
== END 2023-08-28 13:44 | disposition home or self-care (01) ==
PROVIDERS: PCP Family Medicine; Visit Provider Nurse Practitioner Family
DX: I42.9 Cardiomyopathy, unspecified (principal); N18.6 End stage renal disease; Z99.2 Dependence on renal dialysis; Z95.0 Presence of cardiac pacemaker; I35.9 Nonrheumatic aortic valve disorder, unspecified; Z01.810 Encounter for preprocedural cardiovascular examination
CPT/HCPCS: 93010; 93280; 99214

== ENCOUNTER → 2023-08-28 13:02 | Outpatient (BNVA) | payer MEDICARE, SELFPAY | PROVIDERS: PCP Family Medicine; Visit Provider Nurse Practitioner Family | DX: Z01.810 Encounter for preprocedural cardiovascular examination (principal); I42.8 Other cardiomyopathies; I35.9 Nonrheumatic aortic valve disorder, unspecified; N18.6 End stage renal disease; Z99.2 Dependence on renal dialysis; Z45.018 Encounter for adjustment and management of other part of cardiac pacemaker | CPT/HCPCS: 93005; 93280; 99212 ==

== ENCOUNTER → 2023-09-18 13:36 | Outpatient (REF) | payer MEDICARE, SELFPAY ==
--- NOTE | 2023-09-18 13:38 | CA_ITS ---
Transthoracic Echocardiogram Patient (Last, First, Middle): George Levy N Gender: Male Date of : 1940 Age: 82 Procedure Date: 09/18/2023 Procedure Type: Transthoracic Echocardiogram Location: OP Height: 165.1 cm Weight: 72.58 kg BSA: 1.80 m2 Heart Rate: 67 bpm BP: 130 / 60 mmHg Water Vessel Captain: MONICA Referring MD: Elva Burnett FRONT END DRIVER-C Electronic Assembler Group Leader: Reynaldo Ferreira MD Symptoms: I35.9 - Nonrheumatic aortic valve disorder, unspecified Study Quality: Adequate ECG Rhythm: Ventriculary paced rhythm Conclusions: - 1. Cjue-ib-wzleubxx LV systolic dysfunction with LVEF of 40-45% with elevated filling pressures and underlying regional wall motion abnormality consistent with coronary artery disease 2. Moderate aortic stenosis and mild aortic regurgitation 3. Mild mitral regurgitation 4. Normal RV systolic pressure 5. No pericardial effusion Findings Left Ventricle Normal left ventricular cavity size. There is normal left ventricular wall thickness. The left ventricular systolic function is mild to moderately decreased. The visually estimated ejection fraction is between 40-45%. There is paradoxical septal motion consistent with a right ventricular pacemaker. Spectral Doppler is indicative of an impaired relaxation filling pattern. Elevated filling pressures. E/E prime ratio is >15, consistent with elevated filling pressures. Peak GLS is -11.9%, severely reduced. Wall Motion Rest Echo Findings The inferolateral wall and mid inferoseptal segment are hypokinetic. The basal inferior, mid inferior, and basal inferoseptal segments are akinetic. All other scored wall segments showed normal motion. Right Ventricle Mildly increased right ventricular cavity size. There is normal right ventricular systolic function. There is a pacemaker wire seen in the right ventricle. Atria The left atrium is moderately dilated. There is lipomatous hypertrophy of the interatrial septum. There is no evidence of interatrial shunt. The right atrium is mildly dilated. A pacemaker wire is identified in the right atrium. Aortic Valve There is moderate calcification of the aortic valve. There is moderate thickening of the aortic valve. There is moderate aortic valve stenosis. The peak aortic gradient is 26 mmHg.The mean gradient is 16 mmHg. There is mild aortic valve regurgitation. Mitral Valve There is mild anterior and posterior mitral leaflet thickening. There is mild mitral annular calcification. There is mild mitral valve regurgitation. There is no mitral valve stenosis. Pulmonic Valve The pulmonic valve was not well visualized. Tricuspid Valve Normal tricuspid valve structure. There is mild tricuspid valve regurgitation. The right ventricular systolic pressure is normal. The right ventricular systolic pressure is 26 mmHg. Normal right atrial pressure. There is no evidence of pulmonary hypertension. Great Vessels All visible segments of the aorta are normal in size. The pulmonary artery was not well visualized. There is no dilatation of the ascending aorta measuring 3.40 cm. Venous The inferior vena cava is normal in size and collapses greater than 50% with inspiration. Pericardium/Pleural There is no evidence of pericardial effusion. Prior Study Comparison Changes noted compared to prior study dated: 10/19/2022. LV systolic function has marginally improved. Aortic stenosis is worse Measurements 2D Linear Measurements RVIDd: 4.34 IVSd: 1.03 0.6-0.9/0.6-1.0 cm LVIDd: 5.40 3.9-5.3/4.2-5.9 cm LVIDd Index: 3.00 2.4-3.2/2.2-3.1 cm/m2 LVIDs: 4.02 2.0-3.6 cm LVPWd: 0.91 0.7-1.1 cm LA Diam: 4.00 2.7-3.8/3.0-4.0 cm LAIDs Index: 2.22 1.5-2.3 cm/m2 LV Mass: 247.00 67-162/88-224 g LV Mass Index: 137.22 43-95/49-115 g/m2 LVOT Diam: 2.10 3.0+(-)1.3 cm 2D Volumes LV EDV: 92.90 56-104/67-155 ml LV ESV: 50.50 19-49/22-58 ml LA ESV A/L: 48.00 22-52/18-58 ML/M2 RA ESV A/L: 36.60 19-21 ML/M2 2D Systolic Function EF Teich: 50.00 >55% EF 4C: 46.70 >55% EF 2C: 44.60 >55% EF BiP: 45.60 >55% Mitral Valve MV Pk E: 0.69 MV PK A: 0.97 MV Decel Time: 282.00 E/A: 0.70 E'Lateral: 4.90 E'Medial: 4.03 E/E' Med: 17.00 E/E' Lat: 14.00 PHT: 83.00 MVA PHT: 2.65 Decel Wayne: 2.43 Aortic Valve AoV Pk [place]: 2.55 AoV Mn [place]: 1.92 AoV VTI: 0.65 AoV Pk Grad: 26.00 Aov Mn Grad: 16.00 KARLA Cont.VTI: 1.19 LVOT LVOT Pk [place]: 0.86 LVOT Mn [place]: 0.63 LVOT VTI: 0.22 LVOT Pk Grad: 3.00 LVOT Mn Grad: 2.00 LVOT Diam: 2.10 LVOT Area: 3.46 Diastolic Function MV Pk E: 0.69 MV Pk A: 0.97 E/A: 0.70 E'Medial: 4.03 E/E' Med: 17.00 E' Laterial: 4.90 E/E' Lat: 14.00 IVC Diam Insp: 0.50 IVC Diam Exp: 1.22 Right Ventricle TAPSE (mm): 33.00 TVS' [place]: 14.90 Tricuspid Valve TR Pk [place]: 2.42 TR Pk Grad: 23.00 RA Press: 3.00 RVSP: 26.00 IVC Diam Exp: 1.22 IVC Diam Insp: 0.50 Great Vessels Aorta Sinus of Valsalva: 3.00 2.0-3.5 cm Ao Asc: 3.40 2.1-3.4 cm Updated in Other Vendor System with Status of Final Reynaldo Ferreira MD electronically signed on 09/19/2023 11:55:00 AM with status of Final
== END ==
LOC: HO.CARD 13:36
PROVIDERS: PCP Family Medicine; Visit Provider Nurse Practitioner Family
DX: Z01.810 Encounter for preprocedural cardiovascular examination (principal); I42.9 Cardiomyopathy, unspecified; I35.9 Nonrheumatic aortic valve disorder, unspecified
CPT/HCPCS: 93306; 93356

== ENCOUNTER → 2023-09-18 13:38 | Outpatient (BNV) | payer MEDICARE, SELFPAY | PROVIDERS: PCP Family Medicine; Visit Provider Internal Medicine Cardiovascular Disease | DX: I35.2 Nonrheumatic aortic (valve) stenosis with insufficiency (principal); I34.0 Nonrheumatic mitral (valve) insufficiency; I36.1 Nonrheumatic tricuspid (valve) insufficiency; R93.1 Abnormal findings on diagnostic imaging of heart and coronary circulation | CPT/HCPCS: 93306; 93356 ==

== ENCOUNTER → 2023-11-01 08:52 | Outpatient (BNVA) | payer MEDICARE, SELFPAY | PROVIDERS: PCP Family Medicine | DX: Z01.818 Encounter for other preprocedural examination (principal) ==

== ENCOUNTER → 2023-11-14 23:59 | Outpatient (BNV) | payer MEDICARE, SELFPAY ==
--- NOTE | 2023-11-20 08:32 | MHC.OFFVIS ---
Intake Visit Reasons: Remote device check- [facility] [employer] Allergies cephalexin [From KEFLEX] Allergy (Severe, Verified 11/01/23 09:12) ANGIO EDEMA lisinopril [LISINOPRIL] Allergy (Severe, Verified 11/01/23 09:12) FACIAL EDEMA simvastatin Allergy (Severe, Verified 11/01/23 09:12) renal insufficiency amlodipine Allergy (Mild, Verified 11/01/23 09:12) renal insuff in combo w/ statin rx PFSH Medical History ESRD (end stage renal disease) on dialysis Other and unspecified hyperlipidemia Normally functioning cardiac pacemaker present Essential hypertension Valvular heart disease Chronic heart failure with preserved ejection fraction (HFpEF) Pulmonary hypertension Arthritis Anemia NAVA (dyspnea on exertion) Rhabdomyolysis due to statin therapy Chronic kidney disease Diabetes Atherosclerotic cardiovascular disease Elevated cholesterol Aortic valvular disease Pacemaker CHF (congestive heart failure) HTN (hypertension) Surgical History History of cardiac catheterization (~08/2020) History of tonsillectomy Status cardiac pacemaker S/P excision of lipoma Hx of colonoscopy Family History Father Stroke Mother Stroke Diabetes Social History Are you a primary critical care registered nurse to a significant other at home: No Alcohol intake: current Alcohol intake frequency: holidays/special occasions only Alcohol type: hard liquor Patient Tobacco Use Status: Never used Tobacco Advance Directives Date on File: 04/26/20 Current occupational status: retired Current occupation: rt handed Office Procedures Cardiac Device Check Cardiac Device Check Details: Date of service- 11/14/2023 ; Battery life 1 year; normal lead parameters; AP 5.5%; PROFILE MILL OPERATOR TAPE CONTROL >99%; no significant arrhythmias. Overall normal device function. [id number] Cardiac Device Interrogation, pacemaker Procedure code (CPT) selection complete Assessment & Plan Assessment & Plan (1) Heart block: Code(s): I45.9 - Conduction disorder, unspecified Category: Medical Plan x Coding Level of Care Code Procedure Only Diagnoses Heart block I45.9 CPT Codes Cardiac Device Check - Cardiac Device 12: [id number] Cardiac Device Interrogation, pacemaker ([id number])
== END ==
PROVIDERS: PCP Family Medicine; Visit Provider Internal Medicine
DX: I45.9 Conduction disorder, unspecified (principal); Z95.0 Presence of cardiac pacemaker
CPT/HCPCS: 93294

== ENCOUNTER 2023-11-29 12:34 | Outpatient (REF) | payer MEDICARE, SELFPAY ==
--- NOTE | ~2023-11-29 | XR_ITS ---
EXAMINATION: XR HIP, RIGHT CLINICAL INFORMATION: Right hip pain, preoperative. COMPARISON: 08/09/2023. TECHNIQUE: Two views of the right hip. FINDINGS: Similar left hip osteoarthritis. Degenerative changes in the lower lumbar spine. Redemonstration of severe chronic osteoarthritis deformity of the right hip with medial widening and superolateral migration of the femoral head. XR/XR hip RT min 2V IMPRESSION: Redemonstration of severe chronic osteoarthritis deformity of the right hip with medial widening and superolateral migration of the femoral head. Electronically signed by: Genia Delatorre MD 12/26/2023 01:39 PM EDT
== END 2023-11-29 12:35 | disposition home or self-care (01) ==
LOC: HO.HOSX 12:34
PROVIDERS: Visit Provider Physician Assistant
DX: Z01.818 Encounter for other preprocedural examination (principal); M25.551 Pain in right hip; M87.051 Idiopathic aseptic necrosis of right femur; M16.11 Unilateral primary osteoarthritis, right hip
CPT/HCPCS: 73502; 99212

== ENCOUNTER 2023-11-29 12:58 | Outpatient (AMB) | payer MEDICARE, SELFPAY ==
--- NOTE | 2023-11-29 13:24 | A.OFFVIS_ITS ---
<Statement entered by Sean Pleitez MD - 12/01/23 08:08> I saw and evaluated this patient. I completed the assessment and plan in its entirety. The patient visit totaled 25 min, 15 of which I spent directly counseling the patient. I recommend no bending 4 weeks. Vital Signs 3 11/29/23 13:25 Height 5 ft 5 in Weight 161 lb BMI 26.8 Intake Visit Reasons: Pre-Op R CHERYLE w/NE 12/04/23 Intake Note: George an 83 year old female who presents today for a preoperative right CHERYLE on 12/04/23 NE. Pain management agreement reviewed and signed. Allergies cephalexin [From KEFLEX] Allergy (Severe, Verified 11/29/23 13:29) ANGIO EDEMA lisinopril [LISINOPRIL] Allergy (Severe, Verified 11/29/23 13:29) FACIAL EDEMA simvastatin Allergy (Severe, Verified 11/29/23 13:29) renal insufficiency amlodipine Allergy (Mild, Verified 11/29/23 13:29) renal insuff in combo w/ statin rx Medication List - Last Reconciled 11/29/23 by Brian Bajwa PA-C aspirin 81 mg PO BEDTIME atorvastatin 10 mg PO BEDTIME blood sugar diagnostic As directed carvedilol 6.25 mg PO BID furosemide 40 mg PO DAILY [Joint Formula PO DAILY] lancets As directed multivitamin 1 tab PO DAILY walker Folding Front wheeled walker HPI Comments Details: Mr Levy presents to the office today for preop visit. He is scheduled for right total hip arthroplasty with Dr. Pleitez. He continues to have ongoing pain and difficulty with ambulation in the right hip, which is affecting his quality of life; therefore, he has elected to move forward with surgery. [facility] Medical History (Updated 11/20/23 @ 13:53 by Sierra Lange RN) Presence of arterial-venous shunt (for dialysis) History of transfusion of packed red blood cells ESRD (end stage renal disease) on dialysis Other and unspecified hyperlipidemia Normally functioning cardiac pacemaker present Essential hypertension Valvular heart disease Chronic heart failure with preserved ejection fraction (HFpEF) Pulmonary hypertension Arthritis Anemia NAVA (dyspnea on exertion) Rhabdomyolysis due to statin therapy Chronic kidney disease Diabetes Atherosclerotic cardiovascular disease Elevated cholesterol Aortic valvular disease Pacemaker CHF (congestive heart failure) HTN (hypertension) Surgical History History of cardiac catheterization (~08/2020) History of tonsillectomy Status cardiac pacemaker S/P excision of lipoma Hx of colonoscopy Family History Father Stroke Mother Stroke Diabetes Social History Are you a primary critical care paramedic to a significant other at home: No Do you presently have visiting nurse or other home services: Yes (meals on wheels) Alcohol intake: current Alcohol intake frequency: does not drink Alcohol type: hard liquor Patient Tobacco Use Status: Never used Tobacco Advance Directives Date on File: 04/26/20 Current occupational status: retired Current occupation: rt handed Review of Systems Const All systems reviewed & are unremarkable except as noted in HPI and below Physical Exam Vital Signs: BMI result Body Mass Index 26.8 Const General: cooperative and no acute distress Orientation/consciousness: patient oriented x3 HEENT Head: Yes normal to inspection, Yes normocephalic and Yes atraumatic Eyes General: appearance normal, both eyes and all related structures Neck Neck: Yes normal visual inspection and Yes no lymphadenopathy Resp Effort & Inspection: normal respiratory effort and able to speak in complete sentences Cardio Rate: regular rate Peripheral pulses: Peripheral pulses 2+ throughout GI Inspection: Yes normal to inspection Palpation (GI): Soft to palpation Skin General skin exam: no rashes or lesions noted Neuro General: patient oriented x3 Extrem Other: Right hip: Skin intact. No open wound or abrasion. Pain with ROM and hip flexion. NVI. Psych Appearance: grossly normal Mental Status: mental status grossly normal Results Reviewed Results Reviewed: Xrays were obtained in the office today for pre op planning Assessment & Plan Assessment & Plan (1) Avascular necrosis of bone of right hip: Code(s): M87.051 - Idiopathic aseptic necrosis of right femur Category: Medical Plan I discussed in detail the procedure and what to expect pre and post operatively. We discussed the risks, benefits and alternatives to the surgery as well as the rehabilitation course. The risks; which include, but are not limited to infection, bleeding, nerve injury, ongoing pain, swelling, and stiffness, perioperative risk of injury to bones and soft tissues, and blood clots. I?ve answered all questions and with their understanding they have consented to move forward with Right total hip arthroplasty with Dr. 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 pollution control engineer) needs to be paged in order to set up in-patient dialysis at [facility] during the patients post op stay Employee Benefits Attorney-Gerald Rosario -Avoid NSAIDs He has a pacemaker -low dose ASA stopped prior to surgery PT-Esther Gr, order placed Cardiology clearance-----> Orders: Orders 2 PT Evaluation and Treatment 11/29/23 Z96.641 - Presence of right artificial hip joint XR hip RT min 2V 11/29/23 M25.551 - Pain in right hip Patient Instructions: Scribed for Brian Bajwa PA-C, by Alber Adamson director medical safety, on 11/29/2023 at 1:15 PM EST.? I, Brian Bajwa PA-C, have personally reviewed and agree with the information entered by the scribe. Coding Level of Care Code Est Pt Level 3 (36890) Diagnoses Avascular necrosis of bone of right hip M87.051
[2023-11-29 13:25] VITALS: BMI 26.8
== END 2023-11-29 15:41 | disposition home or self-care (01) ==
PROVIDERS: PCP Family Medicine; Visit Provider Physician Assistant
DX: M87.051 Idiopathic aseptic necrosis of right femur (principal)
CPT/HCPCS: 99024

== ENCOUNTER 2023-12-04 05:56 | Inpatient (IN) | payer MEDICARE, SELFPAY ==
[2023-11-20 13:21] VITALS: BP 117/54; PULSE 62; RESP 16; O2SAT 99; BMI 25.0
--- NOTE | 2023-11-20 13:36 | P.CONAN_ITS ---
Documented by User: Maureen Michaels NP 11/21/23 13:36 HPI - Anesthesia Eval Consult details Narrative: 83yo M for Right Hip Total Replacement Medically opitimized per PCP Renal optimized Cardiac optimized Echocardiogram completed 09/18/2023 shows EF 40-45%, moderate aortic stenosis with mean gradient 16 mmHg mild aortic regurgitation. He is medically optimized at this point. He can proceed with total hip replacement surgery with a intermediate cardiac risk. Avoid fluid overload. He has a pacemaker in place. Call/consult Cardiology if needed. No recent illness Denies CP/SOB. Minimal activity d/t comorbidities. Ambulates with walker ESRD on HD: MWF, 3.5 years. Stable for surgery per Nephro. LEFT UE Fistula No IV/BP on LEFT Pacer in situ for 2:1 heart block. OK on recent interrogation High risk case reviewed with Dr Khalida LOPES Active Problems Active Problems: All Active Problems Preop cardiovascular exam (Acute) Avascular necrosis of bone of right hip (Acute) Heart block (Acute) Cardiomyopathy (Acute) Hip flexor tendonitis (Acute) CKD (chronic kidney disease) stage 4, GFR 15-29 ml/min (Acute) Aortic valvular disease (Acute) Pulmonary hypertension (Acute) ESRD (end stage renal disease) on dialysis (Acute) Chronic kidney disease (Acute) Other and unspecified hyperlipidemia (Acute) Normally functioning cardiac pacemaker present (Acute) Essential hypertension (Acute) Valvular heart disease (Acute) Atherosclerotic cardiovascular disease (Acute) Chronic heart failure with preserved ejection fraction (HFpEF) (Acute) Past Medical History Medical History Presence of arterial-venous shunt (for dialysis) History of transfusion of packed red blood cells ESRD (end stage renal disease) on dialysis Other and unspecified hyperlipidemia Normally functioning cardiac pacemaker present Essential hypertension Valvular heart disease Chronic heart failure with preserved ejection fraction (HFpEF) Pulmonary hypertension Arthritis Anemia NAVA (dyspnea on exertion) Rhabdomyolysis due to statin therapy Chronic kidney disease Diabetes Atherosclerotic cardiovascular disease Elevated cholesterol Aortic valvular disease Pacemaker CHF (congestive heart failure) HTN (hypertension) Family History Family History Father Stroke Mother Stroke Diabetes Family history of problems with anesthesia: No Surgical History Surgical History History of cardiac catheterization (~08/2020) History of tonsillectomy Status cardiac pacemaker S/P excision of lipoma Hx of colonoscopy History of Problems with Anesthesia: No Social History Social History Are you a primary medication care manager to a significant other at home: No Do you presently have visiting nurse or other home services: Yes (meals on wheels) Alcohol intake: current Alcohol intake frequency: does not drink Alcohol type: hard liquor Patient Tobacco Use Status: Never used Tobacco Use of substances other than those prescribed or required for medical reasons: No Have you been hit, kicked, punched, or otherwise hurt by someone within the past year? If so, by whom?: No Are you DNR?: No Advance Directives: Yes Advance Directives Information Provided: Yes Advance Directives on File: No Advance Directives Date on File: 04/26/20 Recently lost weight without trying: No Eating poorly because of decreased appetite: No Nutrition Risks: No Nutritional Risk Poor oral hygiene: Yes (missing teeth bottom left and right) Current occupational status: retired Current occupation: rt handed Meds Allergies Allergy/AdvReac Type Severity Reaction Status Date / Time cephalexin [From KEFLEX] Allergy Severe ANGIO EDEMA Verified 12/04/23 06:19 lisinopril [LISINOPRIL] Allergy Severe FACIAL Verified 12/04/23 06:19 EDEMA simvastatin Allergy Severe renal Verified 12/04/23 06:19 insufficiency amlodipine Allergy Mild renal Verified 12/04/23 06:19 insuff in combo w/ statin rx Home Medications ?Medication ?Instructions ?Recorded ?Confirmed ?Last Taken ?Type aspirin 81 mg tablet,delayed 81 mg PO BEDTIME 01/14/20 12/04/23 11/24/23 History release atorvastatin 10 mg tablet 10 mg PO BEDTIME 01/14/20 12/04/23 12/03/23 History multivitamin 1 tab PO DAILY 01/14/20 12/04/23 11/24/23 History blood sugar diagnostic #10 ea 04/20/20 11/01/23 Unknown History lancets 33 gauge #100 ea 04/20/20 11/01/23 Unknown History furosemide 40 mg tablet 40 mg PO DAILY 0412/04/23 12/03/23 History Joint Formula PO DAILY 11/20/23 11/24/23 History carvedilol 6.25 mg tablet 6.25 mg PO BID 11/20/23 12/04/23 12/04/23 History Exam Height,Weight and Vital Signs: Height 5 ft 5 in Weight 68.039 kg Last Vital Signs Pulse 62 11/20/23 13:21 Resp 16 11/20/23 13:21 BP 117/54 L 11/20/23 13:21 Pulse Ox 99 11/20/23 13:21 O2 Del Method Room Air 11/20/23 13:21 Pertinent Lab Results Pertinent Lab Results: Pt will provide post-dialysis labs from 12/03/23 on DOS. Mark for DOS Narrative Narrative: EKG 08/2023 A-sensed, V-paced rhythm ECHO 09/2023 Conclusions: - 1. [id number]-zh-gylufbkk LV systolic dysfunction with LVEF of 40-45% with elevated filling pressures and underlying regional wall motion abnormality consistent with coronary artery disease 2. Moderate aortic stenosis and mild aortic regurgitation 3. Mild mitral regurgitation 4. Normal RV systolic pressure 5. No pericardial effusion Cardiac Device Check 08/2023 Details: [employer] dual-chamber pacemaker interrogation today, battery 1.1 years, DDDR mode low rate 50, atrial threshold 0.75 volts at 0.5 milliseconds, ventricular threshold 1 volt at 0.5 milliseconds, no alerts, a paced 3.8% of time, V paced greater than 99% of time, no AT/AF 45849-[id number] Cardiac Device Check, pacemaker dual lead Procedure code (CPT) selection complete EKG 08/2023 Details: Today, read by me, atrial sensed, ventricular paced rhythm, rate 70 [id number], Complete Airway Mallampati Class: II TM Dist: >3cm Neck ROM: Full Loose/Missing/Broken Teeth: Yes (Left lower impant, lower molars extracted) Heart: RRR +M Lungs: CTAB Assessment and Plan Assessment Anesthesia Assessment: Anesthesia Plan Discussed and PAT Visit Final Anesthetic Review Family History of Problems with Anesthesia: No History of Problems with Anesthesia: No Documented by User: Nata Gaxiola MD 12/04/23 07:31 [facility] Past Medical History Medical History Presence of arterial-venous shunt (for dialysis) History of transfusion of packed red blood cells ESRD (end stage renal disease) on dialysis Other and unspecified hyperlipidemia Normally functioning cardiac pacemaker present Essential hypertension Valvular heart disease Chronic heart failure with preserved ejection fraction (HFpEF) Pulmonary hypertension Arthritis Anemia NAVA (dyspnea on exertion) Rhabdomyolysis due to statin therapy Chronic kidney disease Diabetes Atherosclerotic cardiovascular disease Elevated cholesterol Aortic valvular disease Pacemaker CHF (congestive heart failure) HTN (hypertension) Family History Family History Father Stroke Mother Stroke Diabetes Surgical History Surgical History History of cardiac catheterization (~08/2020) History of tonsillectomy Status cardiac pacemaker S/P excision of lipoma Hx of colonoscopy Social History Social History Are you a primary medication care manager to a significant other at home: No Do you presently have visiting nurse or other home services: Yes (meals on wheels) Alcohol intake: current Alcohol intake frequency: does not drink Alcohol type: hard liquor Patient Tobacco Use Status: Never used Tobacco Use of substances other than those prescribed or required for medical reasons: No Have you been hit, kicked, punched, or otherwise hurt by someone within the past year? If so, by whom?: No Are you DNR?: No Advance Directives: Yes Advance Directives Information Provided: Yes Advance Directives on File: No Advance Directives Date on File: 04/26/20 Recently lost weight without trying: No Eating poorly because of decreased appetite: No Nutrition Risks: No Nutritional Risk Poor oral hygiene: Yes (missing teeth bottom left and right) Current occupational status: retired Current occupation: rt handed Meds Allergies Allergy/AdvReac Type Severity Reaction Status Date / Time cephalexin [From KEFLEX] Allergy Severe ANGIO EDEMA Verified 12/04/23 06:19 lisinopril [LISINOPRIL] Allergy Severe FACIAL Verified 12/04/23 06:19 EDEMA simvastatin Allergy Severe renal Verified 12/04/23 06:19 insufficiency amlodipine Allergy Mild renal Verified 12/04/23 06:19 insuff in combo w/ statin rx Home Medications ?Medication ?Instructions ?Recorded ?Confirmed ?Last Taken ?Type aspirin 81 mg tablet,delayed 81 mg PO BEDTIME 01/14/20 12/04/23 11/24/23 History release atorvastatin 10 mg tablet 10 mg PO BEDTIME 01/14/20 12/04/23 12/03/23 History multivitamin 1 tab PO DAILY 01/14/20 12/04/23 11/24/23 History blood sugar diagnostic #10 ea 04/20/20 11/01/23 Unknown History lancets 33 gauge #100 ea 04/20/20 11/01/23 Unknown History furosemide 40 mg tablet 40 mg PO DAILY 08/04/20 12/04/23 12/03/23 History Joint Formula PO DAILY 11/20/23 11/24/23 History carvedilol 6.25 mg tablet 6.25 mg PO BID 11/20/23 12/04/23 12/04/23 History Assessment and Plan Final Anesthetic Review ASA Class: III Final Preanesthetic Review: No Changes in Pt Med Stat, Meds/Allgs Chart Reviewed, Consent Obtained/Reviewed and Anes Risks/Benef Reviewed Patient Risk: Intermediate Procedure Risk: Intermediate Anesthetic Plan Anesthetic Plan: GA Disposition: Standard PACU
[2023-11-20 15:38] LABS: MRSA Nasal PCR NEGATIVE (Negative); SA Nasal PCR NEGATIVE (Negative)
[2023-12-04] VITALS (17 sets, daily range): BP systolic 102–155; BP diastolic 43–96; PULSE 55–60; RESP 14–18; TEMP 36–36.6; O2SAT 95–98; BMI 24.8
--- NOTE | ~2023-12-04 | XR_ITS ---
EXAMINATION: XR PELVIS CLINICAL INFORMATION: Status post total right hip arthroplasty. COMPARISON: Right hip radiographs dated 11/29/2023. TECHNIQUE: AP view of the pelvis. FINDINGS: Status post total right hip arthroplasty with arthroplasty components in expected anatomic alignment. No hardware fracture or dislocation. No osseous fracture. No radiopaque foreign body. Lateral soft tissue jesu. Left hip osteoarthritis, unchanged. No concerning lytic or blastic osseous lesion. Other scrotal calcifications. XR/XR pelvis 1-2V IMPRESSION: 1. Right total hip arthroplasty without evidence of complication. 2. Left hip osteoarthritis, unchanged. Electronically signed by: Orlando Concepcion MD 12/04/2023 11:54 AM EDT
[2023-12-04 06:51] LABS: Anion Gap 18 (12-20); Carbon Dioxide 32 mmol/L (22-29); Chloride 96 mmol/L (96-108); Potassium 4.8 mmol/L (3.3-5.1); Sodium 141 mmol/L (135-145)
[2023-12-04] MEDS: vancomycin HCL 1,000 MG in 0.9 % Sodium Chloride 250 ML 270 MG IV ×2 (07:35→19:54)
[2023-12-04] MEDS: 0.9 % Sodium Chloride 1,000 ML 50 ML IVCONT (07:35)
--- NOTE | 2023-12-04 07:36 | MHC.SHP ---
Pre-Procedural Eval Section A - 24 Hr Update-Section A only Date of Service: 12/04/23 The patient is an INPATIENT: No Changes since office visit: No Cold of Flu in the past 2 weeks, No New Medical Problems, No Changes in Medication and No Patient answered all questions The patient has been examined within 24 hours of the surgical procedure. The History & Physical has been completed within 30 days and I have reviewed it.: Yes Section B - Complete if H&P > 30 days Chief Complaint: RT CHERYLE Allergies: Allergies Allergy/AdvReac Type Severity Reaction Status Date / Time cephalexin [From KEFLEX] Allergy Severe ANGIO EDEMA Verified 12/04/23 06:19 lisinopril [LISINOPRIL] Allergy Severe FACIAL Verified 12/04/23 06:19 EDEMA simvastatin Allergy Severe renal Verified 12/04/23 06:19 insufficiency amlodipine Allergy Mild renal Verified 12/04/23 06:19 insuff in combo w/ statin rx Plan I have reviewed the history and physical and performed a pertinent physical examination on my patient. No changes have occurred unless specified. Time Spent With Patient Time: Total time managing care of this patient today ____ minutes.
--- NOTE | 2023-12-04 10:20 | PM.OP ---
Brief Operative Note Date of Service: 12/04/23 Pre-op diagnosis: right hip OA Post-op diagnosis: same Procedure: Right CHERYLE Implants: Kimberly Trident2 54 revision cup and 2 6.5 screws with 20 deg cup Kimberly Accoalde2 #[id number] 127 with +2.5 36 ceramic femoral head Surgeon: Sean Pleitez MD Anesthesia: GETA and local Was an Rotary Filter Operator used for this Procedure?: Yes Rotary Filter Operator: Stefania Munson Estimated blood loss (mL): 300 IV fluids (mL): 600 Pathology: other Condition: stable Disposition: PACU
[2023-12-04] MEDS: HYDROmorphone HCl 0.5 MG/0.5 ML SYRINGE 0.25 MG IVPUSH ×6 (10:35→11:05)
--- NOTE | 2023-12-04 12:21 | PHA.MEDREC ---
Pharmacy Consult ? Medication Reconciliation Pharmacy has reviewed the medication reconciliation done by nursing.
[2023-12-04] MEDS: Lactated Ringers 1,000 ML 100 ML IVCONT ×2 (12:34→22:07)
[2023-12-04 12:41] LABS: Glucose, Whole Blood 160 mg/dL (60-115)
[2023-12-04] MEDS: ondansetron HCL 4 MG/2 ML VIAL IVPUSH (12:48)
--- NOTE | 2023-12-04 13:08 | P.CONHOSP_ITS ---
History of Present Illness Data of Consult Service Date: 12/04/23 Primary Care Provider: Edwar Trujillo MD HPI 83-year-old man with a history of avascular necrosis admitted by Orthopedic surgery and is status post right total hip arthroplasty. Surgery was unremarkable. Patient has no complaints of pain at this time. He has some nausea and vomiting post op. He is hemodynamically stable. Review of Systems 2 Review of Systems: Denies any recent fever chills or decrease in appetite respiratory denies any shortness of breath or cough cardiovascular denied chest pain gastrointestinal denies any dysphagia abdominal pain nausea vomiting or diarrhea genitourinary denies any dysuria frequency or hematuria musculoskeletal denies any joint pain or swelling neuropsych denies any weakness or seizures all other systems reviewed are negative [facility] Medical History (Updated 12/04/23 @ 13:11 by Sharon Yousif NP) Presence of arterial-venous shunt (for dialysis) History of transfusion of packed red blood cells ESRD (end stage renal disease) on dialysis Normally functioning cardiac pacemaker present Essential hypertension Valvular heart disease Chronic heart failure with preserved ejection fraction (HFpEF) Pulmonary hypertension Arthritis Anemia NAVA (dyspnea on exertion) Rhabdomyolysis due to statin therapy Chronic kidney disease Diabetes Atherosclerotic cardiovascular disease Aortic valvular disease Pacemaker CHF (congestive heart failure) HTN (hypertension) Family History Father Stroke Mother Stroke Diabetes Surgical History History of cardiac catheterization (~08/2020) History of tonsillectomy Status cardiac pacemaker S/P excision of lipoma Hx of colonoscopy Social History Household Members: Spouse Housing: House Are you a primary critical care registered nurse to a significant other at home: No Do you presently have visiting nurse or other home services: Yes (elder services, meals on wheels) Alcohol intake: current Alcohol intake frequency: does not drink Alcohol type: hard liquor Patient Tobacco Use Status: Never used Tobacco Use of substances other than those prescribed or required for medical reasons: No Have you been hit, kicked, punched, or otherwise hurt by someone within the past year? If so, by whom?: No Do you feel safe in your current relationship?: Yes Is there a partner from a previous relationship who is making you feel unsafe now?: No Are you made to feel afraid or neglected: No Are you DNR?: No Advance Directives: Yes Advance Directives Information Provided: Yes Advance Directives on File: No Advance Directives Date on File: 04/26/20 Do you have a plan to hurt others: No Plan Recently lost weight without trying: No How much weight loss: Not applicable Eating poorly because of decreased appetite: No Nutrition screen score: 0 Nutrition Risks: No Nutritional Risk Poor oral hygiene: No Current occupational status: retired Current occupation: rt handed Meds Allergies Allergy/AdvReac Type Severity Reaction Status Date / Time cephalexin [From KEFLEX] Allergy Severe ANGIO EDEMA Verified 12/04/23 06:19 lisinopril [LISINOPRIL] Allergy Severe FACIAL Verified 12/04/23 06:19 EDEMA simvastatin Allergy Severe renal Verified 12/04/23 06:19 insufficiency amlodipine Allergy Mild renal Verified 12/04/23 06:19 insuff in combo w/ statin rx Active Medications: Current Medications Acetaminophen (Acetaminophen 325 Mg Tablet) 650 mg PO Q6H PRN PRN Reason: Pain, Mild (Pain Scale 1-3), fever or headache Atorvastatin Calcium (Atorvastatin Calcium 10 Mg Tablet) 10 mg PO BEDTIME CONSUELO Carvedilol (Carvedilol 6.25 Mg Tablet) 6.25 mg PO BID CONSUELO; Protocol Docusate Sodium (Docusate Sodium 100 Mg Capsule) 100 mg PO BID CONSUELO Enoxaparin Sodium (Enoxaparin Sodium 40 Mg/0.4 Ml Syringe) 40 mg SUBCUT Q24H CONSUELO Furosemide (Furosemide 40 Mg Tablet) 40 mg PO DAILY CONSUELO; Protocol Hydromorphone HCl (Hydromorphone Hcl 0.5 Mg/0.5 Ml Syringe) 0.25 mg IVPUSH Q5M PRN PRN Reason: Pain, Moderate to Severe (Pain Scale 4-10) Stop: 12/04/23 13:32 Last Admin: 12/04/23 11:05 Dose: 0.25 mg Hydromorphone HCl (Hydromorphone Hcl 0.5 Mg/0.5 Ml Syringe) 0.25 mg IVPUSH Q4H PRN; Protocol PRN Reason: Pain, Severe (Pain Scale 7-10) Lactated Ringer's (Lr) 1,000 mls @ 100 mls/hr IVCONT .Q10H CONSUELO Last Admin: 12/04/23 12:34 Dose: 100 mls/hr Vancomycin HCl 1,000 mg/ (Sodium Chloride) 270 mls @ 270 mls/hr IV POSTOP ONE Stop: 12/04/23 20:59 Ondansetron HCl (Ondansetron Hcl 4 Mg/2 Ml Vial) 4 mg IVPUSH Q6H PRN PRN Reason: Nausea and Vomiting Last Admin: 12/04/23 12:48 Dose: 4 mg Oxycodone HCl (Oxycodone Hcl Immed Release 5 Mg Tablet) 5 mg PO Q4H PRN PRN Reason: Pain, Moderate(Pain Scale 4-6) Oxycodone HCl (Oxycodone Hcl Er 10 Mg Tab.Er.12h) 10 mg PO BID CONSUELO Promethazine HCl (Promethazine Hcl 25 Mg Tablet) 25 mg PO Q6H PRN PRN Reason: Nausea Sodium Chloride (0.9 % Sodium Chloride Flush 3 Ml Syringe) 3 ml IVFLUSH QSHIFT REPLACED BY [facility] Home Medications ?Medication ?Instructions ?Recorded ?Confirmed ?Last Taken ?Type aspirin 81 mg tablet,delayed 81 mg PO BEDTIME 01/14/20 12/04/23 11/24/23 History release atorvastatin 10 mg tablet 10 mg PO BEDTIME 01/14/20 12/04/23 12/03/23 History multivitamin 1 tab PO DAILY 01/14/20 12/04/23 11/24/23 History blood sugar diagnostic #10 ea 04/20/20 11/01/23 Unknown History lancets 33 gauge #100 ea 04/20/20 11/01/23 Unknown History furosemide 40 mg tablet 40 mg PO DAILY 08/04/20 12/04/23 12/03/23 History Joint Formula PO DAILY 11/20/23 11/24/23 History carvedilol 6.25 mg tablet 6.25 mg PO BID 11/20/23 12/04/23 12/04/23 History Physical Exam 2 Vital Signs and Narrative: Vital Signs: Last Vital Signs Temp 97.8 F 12/04/23 12:12 Pulse 55 12/04/23 12:12 Resp 16 12/04/23 12:12 BP 132/63 12/04/23 12:12 Pulse Ox 97 12/04/23 12:12 O2 Del Method Room Air 12/04/23 12:12 O2 Flow Rate 5 12/04/23 10:40 BMI result Body Mass Index 24.8 Appearing in no acute distress head is normocephalic atraumatic eyes pupils are PERRLA sclera is anicteric mouth throat mucous membranes are intact and moist neck is supple no lymphadenopathy, no JVD noted lung sounds are clear to auscultation heart regular rate rhythm, clear S1, S2 positive bowel sounds, abdomen is soft, nontender neuro patient is alert x3, no focal deficits Results Labs 12/04/23 12:38 Labs: Laboratory Results - last 24 hr 12/04/23 12/04/23 06:28 12:22 Anion Gap 18 POC Glucose 160 H Assessment and Plan (1) Avascular necrosis of bone of right hip: Status: Acute Plan 83-year-old man admitted by Orthopedic surgery and is status post right total hip arthroplasty Right total hip arthroplasty Management as per surgical team Pain management nausea and vomiting likely secondary to narcotic medication and anesthesia antiemetics as needed End-stage renal disease on dialysis Continue regular scheduled dialysis Diabetes mellitus type 2 add ss History of heart failure with preserved ejection fraction Continue beta-jose l, aspirin, statin, Lasix DVT prophylaxis with Lovenox
[2023-12-04 13:33] LABS: Creatinine Clr Calc Pharmacy 7.9; Estimated Glomerular Filt Rate 9
[2023-12-04] MEDS: Metoclopramide HCl 10 MG/2 ML VIAL 5 MG IVPUSH (14:38)
--- NOTE | 2023-12-04 14:39 | PC.NURSE ---
attempted multiple times to complete admission assessment but patient declining due to nausea. reports i can't talk or i will throw up . covering provider aware and anti emetics given as ordered
[2023-12-04] MEDS: Enoxaparin Sodium 30 MG/0.3 ML SYRINGE SUBCUT (14:43)
[2023-12-04 16:41] LABS: Glucose, Whole Blood 143 mg/dL (60-115)
[2023-12-04] MEDS: diphenhydrAMINE HCL 50 MG/ML VIAL 25 MG IVPUSH (17:10)
--- NOTE | 2023-12-04 19:34 | PC.NURSE ---
PT WITH POSTOP NAUSEA. MEDICATED WITH ZOFRAN AND REGLAN WITH NO EFFECT. BENADRYL GIVEN WITH GOOD EFFECT. PT TOLERATED BROTH FOR DINNER. DENIES PAIN. RT HIP AQUACELL DRESSING C/D/I. INSTRUCTED ON INCENTIVE SPIROMETER.
[2023-12-04] MEDS: oxyCODONE HCl ER 10 MG TAB.ER.12H PO (19:59)
[2023-12-04] MEDS: carvediloL 6.25 MG TABLET PO (20:00)
[2023-12-04] MEDS: Atorvastatin Calcium 10 MG TABLET PO (20:00)
[2023-12-04] MEDS: Docusate Sodium 100 MG CAPSULE PO (20:01)
[2023-12-04 20:32] LABS: Glucose, Whole Blood 147 mg/dL (60-115)
[2023-12-05] VITALS (8 sets, daily range): BP systolic 113–123; BP diastolic 56–60; PULSE 61–71; RESP 16–18; TEMP 36.2–36.9; O2SAT 98–100
[2023-12-05 07:09] LABS: Glucose, Whole Blood 112 mg/dL (60-115)
[2023-12-05] MEDS: Acetaminophen 325 MG TABLET 650 MG PO ×2 (07:17→13:08)
[2023-12-05] MEDS: Docusate Sodium 100 MG CAPSULE PO ×2 (07:17→20:15)
[2023-12-05] MEDS: Furosemide 40 MG TABLET PO (07:17)
--- NOTE | 2023-12-05 07:17 | PC.NURSE ---
Assumed care of patient since 1844 on 12/04/23. Patient is AAOX4 . 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 Uneventful night. Right hip Aquacel dressing remains CDI. Patient has limited ROM at the RLE. VSS. SCD's on. Safety precautions in place. No injury reported. No signs of acute distress noted.
[2023-12-05] MEDS: oxyCODONE HCl Immed Release 5 MG TABLET PO ×2 (07:18→13:08)
[2023-12-05] MEDS: oxyCODONE HCl ER 10 MG TAB.ER.12H PO ×2 (07:18→20:14)
[2023-12-05] MEDS: carvediloL 6.25 MG TABLET PO ×2 (07:20→20:15)
--- NOTE | 2023-12-05 07:44 | PM.PNORT ---
Subjective Subjective Date of Service: 12/05/23 Interval history: POD1 s/p RTHA Patient is resting in bed comfortably No overnight events Pain is managed No additional complaints Physical Exam Vital Signs: Vital Signs: Last Vital Signs Temp 98.4 F 12/05/23 06:48 Pulse 64 12/05/23 07:27 Resp 17 12/05/23 06:48 BP 114/56 L 12/05/23 07:27 Pulse Ox 99 12/05/23 07:27 O2 Del Method Room Air 12/05/23 06:48 O2 Flow Rate 5 12/04/23 10:40 BMI result Body Mass Index 24.8 Const: General: cooperative, healthy appearing and no acute distress Resp: Effort & Inspection: normal respiratory effort and able to speak in complete sentences Cardio: Rate: regular rate Peripheral pulses: Peripheral pulses 2+ throughout GI: Palpation (GI): Soft to palpation Skin: Lesions: no lesions Rashes: no rashes Extrem: Other: right hip dressing is c/d/i. Able to dorsi/plantar flex. Calf is supple and nontender. Sensation intact. Pedal pulse intact. Procedures Date of Service Date of Service: 12/05/23 Progress Note: A&P Assessment and plan (1) Status post total hip replacement, right: Status: Acute Plan Continue pain mgmnt Begin Lovenox for dvt ppx begin PT/OT for RTHA - Posterior precautions Dialysis M/W/F - Dialysis today Dispo planning- PT, pain mgmnt, monitor renal function, dialysis Time Spent With Patient Time: Total time managing care of this patient today ____ minutes. Quality Stroke Does the patient have a stroke diagnosis?: No VTE Prior VTE?: No VTE Risk Level:: Medical - moderate - high VTE Device Contraindication: N/A - Device Ordered VTE Drug Contraindication: N/A - Med Ordered
[2023-12-05 08:40] LABS: MANUAL DIFF FLAG NO
[2023-12-05 08:52] LABS: Basophils Percent Auto 0.2 % (0-2); Hematocrit 25.9 % (42.0-52.0); Hemoglobin 8.5 g/dl (14.0-18.0); Imm Gran Abs Auto 0.05 X10*3/uL (0.00-0.03); Imm Gran Pct Auto 0.5 % (0.0-0.4); Lymphocytes Absolute Auto 0.5 X10*3/uL (1.2-4.9); Lymphocytes Percent Auto 5.1 % (20-40); Mean Corpuscular HGB Conc 32.8 g/dl (31.0-36.0); Mean Corpuscular Hemoglobin 33.3 pg (27.0-33.0); Mean Corpuscular Volume 101.6 fL (80.0-98.0); Mean Platelet Volume 10.9 fL (9.4-12.4); Monocytes Percent Auto 9.6 % (2-11); Neutrophils Absolute Auto 8.5 x10*3/uL (2.0-8.3); Neutrophils Percent Auto 84.6 % (45-73); Platelet Count 145 X10*3/uL (160-400); Red Blood Count 2.55 X10*6/uL (4.60-5.80); Red Cell Distribution Width 14.5 % (11.0-16.0); White Blood Count 10.1 X10*3/uL (4.8-10.8)
[2023-12-05 09:28] LABS: Anion Gap 21 (12-20); Blood Urea Nitrogen 60 mg/dL (9-16); Calcium 8.7 mg/dL (8.4-10.2); Carbon Dioxide 25 mmol/L (22-29); Chloride 98 mmol/L (96-108); Creatinine Clr Calc Pharmacy 7.2; Estimated Glomerular Filt Rate 8; Glucose Fasting 115 mg/dL (60-99); Potassium 5.8 mmol/L (3.3-5.1); Sodium 138 mmol/L (135-145)
--- NOTE | 2023-12-05 09:51 | P.OP_ITS ---
Operative Note Operative Note Date of Service: 12/04/23 Narrative: Date of Service: 12/04/23 Pre-op diagnosis: right hip OA Post-op diagnosis: same Procedure: Right CHERYLE Implants: [place] Trident2 54 revision cup and 2 6.5 screws with 20 deg cup [place] Accoalde2 #7 127 with +2.5 36 ceramic femoral head Surgeon: Sean Pleitez MD Anesthesia: GETA and local Was an Provider Service Representative used for this Procedure?: Yes Provider Service Representative: Stefania Munson Estimated blood loss (mL): 300 IV fluids (mL): 600 Pathology: other Condition: stable Disposition: PACU Patient was brought into the operating room and placed in the right lateral decubitus position. All bony prominences were well padded and the limb was prepped and draped in standard sterile fashion. A time-out was called to identify proper site procedure proper surgeon IV antibiotics and 1 g of tranexamic acid were administered. I began by making a curvilinear incision over the posterolateral aspect of the greater trochanter. Dissection was taken down to the tensor fascia which was incised in line with the incision and a Charnley retractor was placed. Cautery was used to maintain hemostasis. The hip was internally rotated and the external rotators were identified. The vessels were cauterized and a full-thickness capsular/external rotator layer was developed starting just proximal to the piriformis. This layer was tagged and a dull Hohmann retractor was placed underneath the neck in the hip was dislocated. A neck cut was made 1 cm proximal to the lesser trochanter and the head and neck were removed. THe head was severely defromed and not measurable. I then cauterized the fovea. His bone quality was poor likely due to dialysis dependant renal disease and the inner table was soft. I started with a 46 but was already medialized and so care was taken to not medialize further. The posterior wall was minimal and also soft. I sequentially reamed up to a size 54 and impacted a 54mm cup at 45 degrees of inclination and 25 degrees of version. I placed 2 6.5 screws superiorly into the illium using standard AO technique. The cup was stable. I then placed a 20 deg posterior lipped liner and turned my attention to the femur. I identified the piriformis insertion and used this as a starting point for my stephanie cutter. The medius tendon was protected with a Hibs retractor. A Charnley awl was inserted in the canal and a curved curette used to remove the lateral bone. I irrigated copiously. I then sequentially broached in the patient's natural version to a size 7 and placed my trial implants. I used a #7/127/+2.5. I trialed several different heads and neck angles as he was simultaneously tight and not as stable as I would have liked. He dislocated at about 45-60 deg of IR when adducted and 50-60 deg with flexed. I used an osteotome to remove excess anterior acetabular osteophytes that were impinging and the stability improved but a +5 was tight in extension and so I untimately elected to place a 127 +2.5. I removed all instrumentation and copiously irrigated. I placed my final #7 127 femoral implant and again took the hip through range of motion and was satisfied with the stability and length. The final +2.5 implant was impacted in place and the hip reduced. I then irrigated copiously and placed 1 g of local tranexamic acid. I performed a capsular closure with 2.0 fiberwire, Kobe's fascia with 0 Vicryl, subcuticular with 2-0 Vicryl and the skin with jesu. Patient was placed into a sterile dressing. A Werewolf cautery wand was used to maintain hemostasis over the capsule and meniscal beds, the gutters and peripatellar soft tissues. Final radiographs were obtained prior to extubation and I was satisfied with the length and hardware position. Patient was extubated brought to the recovery room in stable condition. There were no known complications.
--- NOTE | 2023-12-05 12:07 | P.PNNP_ITS ---
Subjective Subjective Date of Service: 12/05/23 Principal diagnosis: ESRD Interval history: Seen on HD Physical Exam 2 Vital Signs: Vital Signs: Last Vital Signs Temp 98.4 F 12/05/23 06:48 Pulse 64 12/05/23 07:27 Resp 17 12/05/23 06:48 BP 114/56 L 12/05/23 07:27 Pulse Ox 99 12/05/23 07:27 O2 Del Method Room Air 12/05/23 06:48 O2 Flow Rate 5 12/04/23 10:40 BMI result Body Mass Index 24.8 Const: General: cooperative, healthy appearing and no acute distress Resp: Effort & Inspection: normal respiratory effort and able to speak in complete sentences Cardio: Rate: regular rate Peripheral pulses: Peripheral pulses 2+ throughout GI: Palpation (GI): Soft to palpation Skin: Lesions: no lesions Rashes: no rashes Extrem: Other: right hip dressing is c/d/i. Able to dorsi/plantar flex. Calf is supple and nontender. Sensation intact. Pedal pulse intact. Objective Data Labs 12/05/23 07:31 12/05/23 07:31 Labs: Laboratory Results - last 24 hr 12/04/23 12/04/23 12/04/23 12:22 12:38 16:27 WBC RBC Hgb Hct MCV MCH MCHC RDW Plt Count MPV Immature Gran % (Auto) Neut % (Auto) Lymph % (Auto) [place] % (Auto) Eos % (Auto) Baso % (Auto) Lymph # (Auto) [place] # (Auto) Eos # (Auto) Baso # (Auto) Abs Immat Gran (auto) Absolute Neuts (auto) Absolute Nucleated RBC Nucleated RBC % (auto) Sodium Potassium Chloride Carbon Dioxide Anion Gap BUN Creatinine 6.30 H* Estim Creat Clear Calc 7.9 Estimated GFR 9 POC Glucose 160 H 143 H Fasting Glucose Calcium 12/04/23 12/05/23 12/05/23 20:23 06:50 07:31 WBC 10.1 RBC 2.55 L Hgb 8.5 L Hct 25.9 L MCV 101.6 H MCH 33.3 H MCHC 32.8 RDW 14.5 Plt Count 145 L MPV 10.9 Immature Gran % (Auto) 0.5 H Neut % (Auto) 84.6 H Lymph % (Auto) 5.1 L [place] % (Auto) 9.6 Eos % (Auto) 0.0 Baso % (Auto) 0.2 Lymph # (Auto) 0.[address] [place] # (Auto) 1.0 Eos # (Auto) 0.0 Baso # (Auto) 0.0 Abs Immat Gran (auto) 0.05 H Absolute Neuts (auto) 8.5 H Absolute Nucleated RBC 0.000 Nucleated RBC % (auto) 0.0 Sodium 138 Potassium 5.8 H D Chloride 98 Carbon Dioxide 25 Anion Gap 21 H BUN 60 H Creatinine 6.93 H* Estim Creat Clear Calc 7.2 Estimated GFR 8 POC Glucose 147 H 112 Fasting Glucose 115 H Calcium 8.7 Procedures Date of Service Date of Service: 12/05/23 Assessment & Plan Assessment and plan (1) ESRD (end stage renal disease) on dialysis: Status: Acute Assessment and Plan: ESRD on HD Hyperkalemia Anemia R THR Hd today Next HD on Sunday Vold removal as tolerated F/u H/H - Transfuse if < 7 K per protocal LOW K renal diet Thx (2) Status post total hip replacement, right: Status: Acute Time Spent With Patient Time: Total time managing care of this patient today ____ minutes. Progress Note: Quality Stroke Does the patient have a stroke diagnosis?: No
--- NOTE | 2023-12-05 12:44 | HP_ITS ---
DATE OF SERVICE: 12/04/2023 REASON FOR CONSULTATION: Consult requested by the Orthopedic Surgery Department to evaluate and help in management of patient with ESRD, on hemodialysis, who has been admitted for right total hip arthroplasty. The patient usually gets dialyzed on Sunday, Sunday, Sunday, and he underwent the surgery yesterday. He is resting in the bed and states that the pain control is acceptable. He denies any chest pain, shortness breath, nausea, or vomiting. REVIEW OF SYSTEMS: As noted above. Other system review negative. PAST MEDICAL HISTORY: History of ESRD, on hemodialysis; history of anemia, status post transfusion in the past; AV fistula placement in the past; history of hypertension; valvular heart disease; history of heart failure with a preserved ejection fraction; hypertension; arthritis; anemia; dyspnea on exertion; rhabdomyolysis due to statin therapy; chronic kidney disease; diabetes; aortic valvular disease; pacemaker; CHF; and hypertension. FAMILY HISTORY: The patient's father is and had a stroke. Mother is , had a stroke and diabetes. PAST SURGICAL HISTORY: Include tonsillectomy, pacemaker placement, history of excision of lipoma. PERSONAL AND SOCIAL HISTORY: Patient lives with his spouse. Does not smoke or drink. ALLERGIES: PATIENT HAS ALLERGIES TO LISINOPRIL, SIMVASTATIN, AMLODIPINE. MEDICATIONS: Medications at home were reviewed in detail. PHYSICAL EXAMINATION: GENERAL: Patient is resting in the bed. Awake, alert, oriented x3. VITAL SIGNS: Blood pressure was 114/56, pulse 64, afebrile. HEENT: Shows pupils are equal, round, and reactive bilaterally to light. No jugular venous distention is noted. NECK: Supple. No thyromegaly is noted. CARDIOVASCULAR SYSTEM: S1, S2 without rub or murmur. RESPIRATORY SYSTEM: Mildly decreased in bases. ABDOMEN: Soft. Bowel sounds normal. EXTREMITIES: Showed postsurgical dressing. There is no edema. LABORATORY DATA: Labs done recently. WBC 10.1, hemoglobin 8.5, hematocrit 29.5, platelets were 145. Sodium was 138, potassium 5.8, chloride 98, CO2 25, BUN 60, creatinine 6.93, estimated GFR 72, calcium was 8.7. IMPRESSION: 1. 83-year-old male with end-stage renal disease, on hemodialysis. 2. Status post right hip arthroplasty. 3. Anemia of chronic disease. 4. Anemia. 5. Hypertension. RECOMMENDATION: I have arranged hemodialysis for the patient in the inpatient dialysis unit. We will try to continue dialysis on Sunday, Sunday, Sunday. His potassium level is on the high side, and I recommend a low-potassium renal diet. Orthopedic Surgery is following this patient and transfuse if hemoglobin less than 7.0. Thank you for allowing me to participate in medical management of the patient. MD KRISTOPHER Car/SHRUTHI / [phone]
[2023-12-05 13:08] LABS: Glucose, Whole Blood 144 mg/dL (60-115)
[2023-12-05] MEDS: Enoxaparin Sodium 30 MG/0.3 ML SYRINGE SUBCUT (13:08)
--- NOTE | 2023-12-05 13:44 | MHC.CM.PN ---
IMM 12/04. Pt lives at home with his , uses a cane and rollater walker. Pt goes to in [place] on /. Pts brother to transport him home. Pt states he has a HCP, copy requested. Pt would like home PT upon discharge, [facility] preferred, referral placed. PCP: Dr. Edwar Trujillo
--- NOTE | 2023-12-05 13:53 | HO.POSTANES ---
Post Anesthesia Evaluation Post Anesthesia Evaluation Date of Service: 12/05/23 Vital Signs: Vital Signs Temp Pulse Resp BP Pulse Ox O2 Del Method 12/05/23 13:43 64 114/56 L 99 12/05/23 07:27 64 114/56 L 99 12/05/23 06:48 98.4 F 64 17 114/56 L 99 Room Air 12/05/23 03:24 97.1 F 64 16 113/56 L 98 Room Air Anesthesia: General LMA Mental Status: Awake Pain Control: Satisfactory Nausea/Vomiting: None Hydration: Adequate Anesthesia-Related Issues: No Anes. Related Issues Comments: he had mild nausea postop on the floor, responded to med.
[2023-12-05] MEDS: Lactated Ringers 1,000 ML 100 ML IVCONT ×2 (15:07→23:49)
[2023-12-05] MEDS: 0.9 % Sodium Chloride Flush 3 ML SYRINGE IVFLUSH (15:08)
[2023-12-05 16:05] LABS: Glucose, Whole Blood 140 mg/dL (60-115)
[2023-12-05 19:05] LABS: Estimated Average Glucose 97 mg/dL
[2023-12-05] MEDS: Atorvastatin Calcium 10 MG TABLET PO (20:15)
[2023-12-05 20:40] LABS: Glucose, Whole Blood 143 mg/dL (60-115)
[2023-12-06] VITALS (12 sets, daily range): BP systolic 100–147; BP diastolic 50–66; PULSE 65–98; RESP 12–20; TEMP 36.2–36.7; O2SAT 97–100
[2023-12-06 06:31] LABS: MANUAL DIFF FLAG NO
[2023-12-06 06:41] LABS: Basophils Percent Auto 0.1 % (0-2); Eosinophils Percent Auto 0.5 % (0-4); Hematocrit 21.4 % (42.0-52.0); Hemoglobin 7.1 g/dl (14.0-18.0); Imm Gran Abs Auto 0.05 X10*3/uL (0.00-0.03); Imm Gran Pct Auto 0.6 % (0.0-0.4); Lymphocytes Absolute Auto 0.4 X10*3/uL (1.2-4.9); Lymphocytes Percent Auto 4.6 % (20-40); Mean Corpuscular HGB Conc 33.2 g/dl (31.0-36.0); Mean Corpuscular Hemoglobin 33.3 pg (27.0-33.0); Mean Corpuscular Volume 100.5 fL (80.0-98.0); Monocytes Absolute Auto 0.9 X10*3/uL (0.1-1.2); Monocytes Percent Auto 11.5 % (2-11); Neutrophils Absolute Auto 6.4 x10*3/uL (2.0-8.3); Neutrophils Percent Auto 82.7 % (45-73); Red Blood Count 2.13 X10*6/uL (4.60-5.80); Red Cell Distribution Width 14.6 % (11.0-16.0); White Blood Count 7.8 X10*3/uL (4.8-10.8)
[2023-12-06 06:51] LABS: Anion Gap 17 (12-20); Blood Urea Nitrogen 33 mg/dL (9-16); Calcium 8.2 mg/dL (8.4-10.2); Carbon Dioxide 23 mmol/L (22-29); Chloride 100 mmol/L (96-108); Creatinine Clr Calc Pharmacy 11.3; Estimated Glomerular Filt Rate 13; Glucose Fasting 108 mg/dL (60-99); Potassium 4.6 mmol/L (3.3-5.1); Sodium 135 mmol/L (135-145)
[2023-12-06 07:22] LABS: Mean Platelet Volume 10.6 fL (9.4-12.4); Platelet Count 93 X10*3/uL (160-400)
[2023-12-06] MEDS: 0.9 % Sodium Chloride Flush 3 ML SYRINGE IVFLUSH ×2 (07:36→17:13)
[2023-12-06] MEDS: oxyCODONE HCl ER 10 MG TAB.ER.12H PO ×2 (07:37→18:49)
[2023-12-06] MEDS: carvediloL 6.25 MG TABLET PO ×2 (07:37→18:49)
[2023-12-06] MEDS: Docusate Sodium 100 MG CAPSULE PO ×2 (07:37→18:49)
[2023-12-06] MEDS: Furosemide 40 MG TABLET PO (07:38)
[2023-12-06 07:41] LABS: Glucose, Whole Blood 92 mg/dL (60-115)
--- NOTE | 2023-12-06 07:48 | PC.NURSE ---
7.1 21.4 PA Edwige aware,PA will contact Hospitalist
--- NOTE | 2023-12-06 09:04 | P.PNOP_ITS ---
Subjective Subjective Date of Service: 12/06/23 Principal diagnosis: ESRD Interval history: This is an 83-year-old male who is postop day 2 status post right CHERYLE with Dr. Pleitez. Today, the patient reports that he is feeling well, and has no acute complaints or concerns at this time. Patient reports that his pain is well- controlled. Patient reports that he has been working with physical therapy, and he feels this has helped him significantly. Patient did receive inpatient dialysis yesterday. No other acute complaints or concerns at this time. Physical Exam Vital Signs: Vital Signs: Last Vital Signs Temp 97.1 F 12/06/23 07:32 Pulse 69 12/06/23 07:37 Resp 14 12/06/23 07:32 BP 105/53 L 12/06/23 07:37 Pulse Ox 100 12/06/23 07:32 O2 Del Method Room Air 12/06/23 07:32 O2 Flow Rate 5 12/04/23 10:40 BMI result Body Mass Index 24.8 Extrem: Other: On inspection, the dressing on the patient's right hip is clean, dry, intact No significant edema, erythema, evidence of infection noted Patient does report very mild tenderness to palpation about the incision site Patient is able to actively flex at the hip at this time Compartments soft, nontender Distal sensation intact Capillary refill brisk Procedures Date of Service Date of Service: 12/06/23 Progress Note: A&P Assessment and plan (1) Status post total hip replacement, right: Status: Acute Plan 1. Status post right total hip arthroplasty with Dr. Pleitez DOS 12/04/2023 Patient is discussed with Dr. Pleitez, and a collaborative treatment plan was formed: At this time, the hospitalist service is consulted for H/H 7.05/06.5 to assess the need for potential blood transfusion in the setting of dialysis dependence Patient will remain in the hospital at least until dialysis treatment tomorrow Nephrology is also notified that the patient will once again require inpatient dialysis tomorrow Patient will continue working with PT and OT while inpatient Plan is for discharge home with VNA services upon discharge Patient is amenable to this plan Time Spent With Patient Time: Total time managing care of this patient today ____ minutes. Quality Stroke Does the patient have a stroke diagnosis?: No VTE Prior VTE?: No VTE Risk Level:: Medical - moderate - high VTE Device Contraindication: N/A - Device Ordered VTE Drug Contraindication: N/A - Med Ordered
[2023-12-06] MEDS: Lactated Ringers 1,000 ML 100 ML IVCONT (10:41)
[2023-12-06 11:27] LABS: Glucose, Whole Blood 79 mg/dL (60-115)
--- NOTE | 2023-12-06 13:06 | PC.NURSE ---
Patient c/o feeling constipated ,last BM Sunday,passing flatus,MEMO [facility] notified
--- NOTE | 2023-12-06 13:12 | PC.NURSE ---
Low HH 7.1 21.4 ,Dr. Mi aware,blood transfusion ordered
[2023-12-06] MEDS: polyethylene glycoL 3350 17 GM POWD.PACK PO (13:19)
[2023-12-06] MEDS: Enoxaparin Sodium 30 MG/0.3 ML SYRINGE SUBCUT (13:20)
--- NOTE | 2023-12-06 14:15 | PM.PNNEP ---
Subjective Subjective Date of Service: 12/06/23 Principal diagnosis: ESRD Interval history: Seen on HD Physical Exam Vital Signs: Vital Signs: Last Vital Signs Temp 97.2 F 12/06/23 12:07 Pulse 65 12/06/23 12:47 Resp 12 12/06/23 12:07 BP 121/60 12/06/23 12:47 Pulse Ox 100 12/06/23 12:47 O2 Del Method Room Air 12/06/23 12:07 O2 Flow Rate 5 12/04/23 10:40 BMI result Body Mass Index 24.8 cvs; s1s2 Rs; cta Abd; soft Objective Data Labs 12/06/23 05:48 12/06/23 05:48 Labs: Laboratory Results - last 24 hr 12/05/23 12/05/23 12/05/23 15:52 18:49 20:33 WBC RBC Hgb Hct MCV MCH MCHC RDW Plt Count MPV Immature Gran % (Auto) Neut % (Auto) Lymph % (Auto) [place] % (Auto) Eos % (Auto) Baso % (Auto) Lymph # (Auto) [place] # (Auto) Eos # (Auto) Baso # (Auto) Abs Immat Gran (auto) Absolute Neuts (auto) Absolute Nucleated RBC Nucleated RBC % (auto) Sodium Potassium Chloride Carbon Dioxide Anion Gap BUN Creatinine Estim Creat Clear Calc Estimated GFR POC Glucose 140 H 143 H Fasting Glucose Estimat Average Glucose 97 Hemoglobin A1c % 5.0 Calcium 12/06/23 12/06/23 12/06/23 05:48 07:37 11:22 WBC 7.8 RBC 2.13 L Hgb 7.1 L Hct 21.4 L MCV 100.5 H MCH 33.3 H MCHC 33.2 RDW 14.6 Plt Count 93 L D MPV 10.6 Immature Gran % (Auto) 0.6 H Neut % (Auto) 82.7 H Lymph % (Auto) 4.6 L [place] % (Auto) 11.5 H Eos % (Auto) 0.5 Baso % (Auto) 0.1 Lymph # (Auto) 0.4 L [place] # (Auto) 0.9 Eos # (Auto) 0.0 Baso # (Auto) 0.0 Abs Immat Gran (auto) 0.05 H Absolute Neuts (auto) 6.4 Absolute Nucleated RBC 0.000 Nucleated RBC % (auto) 0.0 Sodium 135 Potassium 4.6 D Chloride 100 Carbon Dioxide 23 Anion Gap 17 BUN 33 H Creatinine 4.45 H* Estim Creat Clear Calc 11.3 Estimated GFR 13 POC Glucose 92 79 Fasting Glucose 108 H Estimat Average Glucose Hemoglobin A1c % Calcium 8.2 L Procedures Date of Service Date of Service: 12/06/23 Assessment & Plan Assessment and plan (1) ESRD (end stage renal disease) on dialysis: Status: Acute (2) Anemia: Status: Acute Plan 83-year-old male with end-stage renal disease, on hemodialysis. 2. Status post right hip arthroplasty. 3. Anemia of chronic disease. 4. Anemia. 5. Hypertension. RECOMMENDATION: arranged hemodialysis for the patient in the inpatient dialysis unit. We continue dialysis on Sunday, Sunday, Sunday. low-potassium renal diet. Orthopedic Surgery is following this patient and transfuse if hemoglobin less than 7.0. epoetin Time Spent With Patient Time: Total time managing care of this patient today ____ minutes. Progress Note: Quality Stroke Does the patient have a stroke diagnosis?: No
--- NOTE | 2023-12-06 14:41 | P.CONHOSP_ITS ---
History of Present Illness Data of Consult Service Date: 12/06/23 Primary Care Provider: Edwar Trujillo MD HPI Reason for consult: anemia Review of Systems 2 Review of Systems: Gen: no fever Resp: no sob, no cough CV: no chest, no NAVA, no leg edema GI: No n/v, no abd pain Neuro: No confusion [facility] Medical History Presence of arterial-venous shunt (for dialysis) History of transfusion of packed red blood cells ESRD (end stage renal disease) on dialysis Normally functioning cardiac pacemaker present Essential hypertension Valvular heart disease Chronic heart failure with preserved ejection fraction (HFpEF) Pulmonary hypertension Arthritis Anemia NAVA (dyspnea on exertion) Rhabdomyolysis due to statin therapy Chronic kidney disease Diabetes Atherosclerotic cardiovascular disease Aortic valvular disease Pacemaker CHF (congestive heart failure) HTN (hypertension) Family History Father Stroke Mother Stroke Diabetes Surgical History History of cardiac catheterization (~08/2020) History of tonsillectomy Status cardiac pacemaker S/P excision of lipoma Hx of colonoscopy Social History Household Members: Spouse Housing: House Are you a primary wound care specialist to a significant other at home: No Do you presently have visiting nurse or other home services: Yes (elder services, meals on wheels) Alcohol intake: current Alcohol intake frequency: does not drink Alcohol type: hard liquor Patient Tobacco Use Status: Never used Tobacco Use of substances other than those prescribed or required for medical reasons: No Currently Displaying Signs/Symptoms of Drug Intoxication Withdrawal: No Have you been hit, kicked, punched, or otherwise hurt by someone within the past year? If so, by whom?: No Do you feel safe in your current relationship?: Yes Is there a partner from a previous relationship who is making you feel unsafe now?: No Are you made to feel afraid or neglected: No Are you DNR?: No Advance Directives: Yes Advance Directives Information Provided: Yes Advance Directives on File: No Advance Directives Date on File: 04/26/20 Do you have a plan to hurt others: No Plan Recently lost weight without trying: No How much weight loss: Not applicable Eating poorly because of decreased appetite: No Nutrition screen score: 0 Nutrition Risks: No Nutritional Risk Poor oral hygiene: No service: No Current occupational status: retired Current occupation: rt handed Meds Allergies Allergy/AdvReac Type Severity Reaction Status Date / Time cephalexin [From KEFLEX] Allergy Severe ANGIO EDEMA Verified 12/04/23 06:19 lisinopril [LISINOPRIL] Allergy Severe FACIAL Verified 12/04/23 06:19 EDEMA simvastatin Allergy Severe renal Verified 12/04/23 06:19 insufficiency amlodipine Allergy Mild renal Verified 12/04/23 06:19 insuff in combo w/ statin rx Active Medications: Current Medications Acetaminophen (Acetaminophen 325 Mg Tablet) 650 mg PO Q6H PRN PRN Reason: Pain, Mild (Pain Scale 1-3), fever or headache Last Admin: 12/05/23 13:08 Dose: 650 mg Atorvastatin Calcium (Atorvastatin Calcium 10 Mg Tablet) 10 mg PO BEDTIME [facility] Last Admin: 12/05/23 20:15 Dose: 10 mg Carvedilol (Carvedilol 6.25 Mg Tablet) 6.25 mg PO BID [facility]; Protocol Last Admin: 12/06/23 07:37 Dose: 6.25 mg Diphenhydramine HCl (Diphenhydramine Hcl 50 Mg/Ml Vial) 25 mg IVPUSH Q4H PRN PRN Reason: Nausea and Vomiting Last Admin: 12/04/23 17:10 Dose: 25 mg Docusate Sodium (Docusate Sodium 100 Mg Capsule) 100 mg PO BID [facility] Last Admin: 12/06/23 07:37 Dose: 100 mg Enoxaparin Sodium (Enoxaparin Sodium 30 Mg/0.3 Ml Syringe) 30 mg SUBCUT Q24H [facility] Last Admin: 12/06/23 13:20 Dose: 30 mg Furosemide (Furosemide 40 Mg Tablet) 40 mg PO DAILY [facility]; Protocol Last Admin: 12/06/23 07:38 Dose: 40 mg Glucose (Glucose Gel 15 Gm Gel..Gram.) 15 gm PO Q15M PRN; Protocol PRN Reason: per Hypoglycemia Standing Ord. Hydromorphone HCl (Hydromorphone Hcl 0.5 Mg/0.5 Ml Syringe) 0.25 mg IVPUSH Q4H PRN; Protocol PRN Reason: Pain, Severe (Pain Scale 7-10) Dextrose (D10) 250 mls @ 750 mls/hr IV Q15M PRN; Protocol PRN Reason: per Hypoglycemia Standing Ord. Insulin Human Lispro (Insulin Lispro 100 Unit/Ml 3 Ml Vial) 0 unit SUBCUT QIDACHS [facility]; Protocol Last Admin: 12/06/23 11:50 Dose: Not Given Lorazepam (Lorazepam 2 Mg/Ml Vial) 0.25 mg IVPUSH Q6H PRN PRN Reason: Nausea and Vomiting Metoclopramide HCl (Metoclopramide Hcl 10 Mg/2 Ml Vial) 5 mg IVPUSH Q6H PRN PRN Reason: Nausea and Vomiting Last Admin: 12/04/23 14:38 Dose: 5 mg Oxycodone HCl (Oxycodone Hcl Immed Release 5 Mg Tablet) 5 mg PO Q4H PRN PRN Reason: Pain, Moderate(Pain Scale 4-6) Last Admin: 12/05/23 13:08 Dose: 5 mg Oxycodone HCl (Oxycodone Hcl Er 10 Mg Tab.Er.12h) 10 mg PO BID [facility] Last Admin: 12/06/23 07:37 Dose: 10 mg Polyethylene Glycol (Polyethylene Glycol 3350 17 Gm Powd.Pack) 17 gm PO DAILY PRN PRN Reason: consitpation Last Admin: 12/06/23 13:19 Dose: 17 gm Sodium Chloride (0.9 % Sodium Chloride Flush 3 Ml Syringe) 3 ml IVFLUSH [facility] Last Admin: 12/06/23 07:36 Dose: 3 ml Home Medications ?Medication ?Instructions ?Recorded ?Confirmed ?Last Taken ?Type aspirin 81 mg tablet,delayed 81 mg PO BEDTIME 01/14/20 12/04/23 11/24/23 History release atorvastatin 10 mg tablet 10 mg PO BEDTIME 01/14/20 12/04/23 12/03/23 History multivitamin 1 tab PO DAILY 01/14/20 12/04/23 11/24/23 History blood sugar diagnostic #10 ea 04/20/20 11/01/23 Unknown History lancets 33 gauge #100 ea 04/20/20 11/01/23 Unknown History furosemide 40 mg tablet 40 mg PO DAILY 08/04/20 12/04/23 12/03/23 History Joint Formula PO DAILY 11/20/23 11/24/23 History carvedilol 6.25 mg tablet 6.25 mg PO BID 11/20/23 12/04/23 12/04/23 History Physical Exam 2 Vital Signs and Narrative: Vital Signs: Last Vital Signs Temp 97.2 F 12/06/23 12:07 Pulse 65 12/06/23 12:47 Resp 12 12/06/23 12:07 BP 121/60 12/06/23 12:47 Pulse Ox 100 12/06/23 12:47 O2 Del Method Room Air 12/06/23 12:07 O2 Flow Rate 5 12/04/23 10:40 BMI result Body Mass Index 24.8 Const: Other: General: AO X 3, no acute distress Resp: CTA bilateral CVS: S1,S2,RRR GI: +BS, NT, no distention Skin: No rash, surgery site d/c/i Neuro: motor grossly intact Psych: appropriate affect Results Labs 12/06/23 05:48 12/06/23 05:48 Labs: Laboratory Results - last 24 hr 12/05/23 12/05/23 12/05/23 15:52 18:49 20:33 MCV MCH MCHC RDW Plt Count MPV Immature Gran % (Auto) Neut % (Auto) Lymph % (Auto) [place] % (Auto) Eos % (Auto) Baso % (Auto) Lymph # (Auto) [place] # (Auto) Eos # (Auto) Baso # (Auto) Abs Immat Gran (auto) Absolute Neuts (auto) Absolute Nucleated RBC Nucleated RBC % (auto) Anion Gap Estim Creat Clear Calc Estimated GFR POC Glucose 140 H 143 H Fasting Glucose Estimat Average Glucose 97 Hemoglobin A1c % 5.0 Calcium 12/06/23 12/06/23 12/06/23 05:48 07:37 11:22 MCV 100.5 H MCH 33.3 H MCHC 33.2 RDW 14.6 Plt Count 93 L D MPV 10.6 Immature Gran % (Auto) 0.6 H Neut % (Auto) 82.7 H Lymph % (Auto) 4.6 L [place] % (Auto) 11.5 H Eos % (Auto) 0.5 Baso % (Auto) 0.1 Lymph # (Auto) 0.4 L [place] # (Auto) 0.9 Eos # (Auto) 0.0 Baso # (Auto) 0.0 Abs Immat Gran (auto) 0.05 H Absolute Neuts (auto) 6.4 Absolute Nucleated RBC 0.000 Nucleated RBC % (auto) 0.0 Anion Gap 17 Estim Creat Clear Calc 11.3 Estimated GFR 13 POC Glucose 92 79 Fasting Glucose 108 H Estimat Average Glucose Hemoglobin A1c % Calcium 8.2 L Assessment and Plan (1) Status post total hip replacement, right: Status: Acute Plan 83/ m with ESRD s/p r hip arthropasty on 12/03 s/p right hip arthroplasty -management per ortho including pain management and dvt prevention anemia of chronic disease with acute drop as above--related to above -transfuse 1 unit today and if needed additional units tomor, consent obtained thrombocytopenia--acute on chronic -monitor with lovenox ESRD, HD MWF -nephrology following HLD -Lipitor HTN--controlled -continue Coreg, lasix DM--diet controlled, A1C = 5 dvt prophylaxis--lovenox will follow, thanks
--- NOTE | 2023-12-06 14:44 | PC.NURSE ---
[facility] ,questioned T&C,phlebotomy is coming up to draw specimen
[2023-12-06 16:13] LABS: Glucose, Whole Blood 113 mg/dL (60-115)
--- NOTE | 2023-12-06 17:51 | PC.NURSE ---
Procrit to be given tommorrow in dialysis per Dr. Howell,pharmacy notified
[2023-12-06] MEDS: Atorvastatin Calcium 10 MG TABLET PO (18:49)
[2023-12-06 20:28] LABS: Glucose, Whole Blood 101 mg/dL (60-115)
[2023-12-06] MEDS: oxyCODONE HCl Immed Release 5 MG TABLET PO (21:02)
[2023-12-06] MEDS: Acetaminophen 325 MG TABLET 650 MG PO (21:02)
[2023-12-07] VITALS: BP 126/58; PULSE 65; RESP 18; TEMP 36.3; O2SAT 99
[2023-12-07 03:53] VITALS: BP 149/65; PULSE 63; RESP 18; TEMP 36.2; O2SAT 99
[2023-12-07 07:01] LABS: MANUAL DIFF FLAG NO
[2023-12-07 07:06] LABS: Basophils Percent Auto 0.1 % (0-2); Eosinophils Absolute Auto 0.1 X10*3/uL (0.0-0.4); Hematocrit 23.1 % (42.0-52.0); Hemoglobin 7.8 g/dl (14.0-18.0); Imm Gran Abs Auto 0.05 X10*3/uL (0.00-0.03); Imm Gran Pct Auto 0.6 % (0.0-0.4); Lymphocytes Absolute Auto 0.4 X10*3/uL (1.2-4.9); Lymphocytes Percent Auto 5.7 % (20-40); Mean Corpuscular HGB Conc 33.8 g/dl (31.0-36.0); Mean Corpuscular Hemoglobin 32.9 pg (27.0-33.0); Mean Corpuscular Volume 97.5 fL (80.0-98.0); Mean Platelet Volume 10.6 fL (9.4-12.4); Monocytes Absolute Auto 0.8 X10*3/uL (0.1-1.2); Monocytes Percent Auto 10.3 % (2-11); Neutrophils Absolute Auto 6.4 x10*3/uL (2.0-8.3); Neutrophils Percent Auto 82.3 % (45-73); Red Blood Count 2.37 X10*6/uL (4.60-5.80); Red Cell Distribution Width 15.6 % (11.0-16.0); White Blood Count 7.8 X10*3/uL (4.8-10.8)
[2023-12-07 07:11] LABS: Platelet Count 92 X10*3/uL (160-400)
[2023-12-07 07:17] VITALS: BP 149/65; PULSE 63; O2SAT 99
[2023-12-07 07:32] LABS: Anion Gap 15 (12-20); Blood Urea Nitrogen 47 mg/dL (9-16); Calcium 8.1 mg/dL (8.4-10.2); Carbon Dioxide 26 mmol/L (22-29); Chloride 98 mmol/L (96-108); Creatinine Clr Calc Pharmacy 8.5; Estimated Glomerular Filt Rate 9; Glucose Fasting 96 mg/dL (60-99); Sodium 134 mmol/L (135-145)
[2023-12-07 07:56] LABS: Glucose, Whole Blood 94 mg/dL (60-115)
[2023-12-07 08:00] VITALS: BP 127/59; PULSE 68; RESP 12; TEMP 36.6; O2SAT 100
--- NOTE | 2023-12-07 08:13 | PM.DS ---
DS: Providers Provider Date of Service: 12/07/23 Date of admission: 12/04/23 05:56 Primary care physician: Edwar Trujillo MD Consults: 12/04/23 12:12 Consult to Hospitalist Routine Comment: dialysis m/w/f - do not fluid overload, no NSAIDs Consulting Provider: Hospitalist Reason For Exam: ESRD on dyalisis - Dr. Gonzalez will assist 12/04/23 15:51 Consult to Nephrology Routine Consulting Provider: [facility] Reason for consultation: ESRD 12/05/23 13:30 Consult to Physician Routine Consulting Provider: Amandeep Gonzalez Reason for consultation: esrd Has provider been notified: No 12/06/23 07:52 Consult to Hospitalist Routine Comment: Consulting Provider: Hospitalist Reason For Exam: H/H 7.1/21.4 from 8.5/25.9 yesterday, dialysis pt DS: Diagnosis Discharge Diagnosis (1) ESRD (end stage renal disease) on dialysis: Status: Acute (2) Anemia: Status: Acute DS: Summary Hospital Course Hospital Course: The patient underwent a successful right total hip arthroplasty, they were transferred to PACU and then to the floor to recover. During their stay, their vitals were stable, afebrile at 97.9. POD2 the patient did have a drop in H/H 7.1/21.4 and did recieve a unit of pRBC's and the day of discharge his H/H improved to 7.8/23.1. The patient normally has dialysis Sunday, Sunday, and Fridays. Dr. Gonzalez was notified of the patient's admission and his dialysis schedule continued while he was admitted. POD 1 they were started on Lovenox 40mg subq once a day for DVT ppx, they also received Physical Therapy services twice a day. Prior to discharge, their dressing was changed, incision clean dry and intact, new Aquacel dressing applied and the plan was to be discharged home with VNA services. Time Attestation Discharge Coordination Time (in mins): 30 Quality: Safe Use of Opioids Does Pt have an Active Cancer Diagnosis on the Problem List?: No Quality: Stroke Does the patient have a stroke diagnosis?: No Physical Exam Vital Signs: Vital Signs: Last Vital Signs Temp 97.1 F 12/07/23 03:53 Pulse 63 12/07/23 07:17 Resp 18 12/07/23 03:53 BP 149/65 H 12/07/23 07:17 Pulse Ox 99 12/07/23 07:17 O2 Del Method Room Air 12/07/23 03:53 O2 Flow Rate 5 12/04/23 10:40 BMI result Body Mass Index 24.8 Const: General: cooperative, healthy appearing and no acute distress Resp: Effort & Inspection: normal respiratory effort and able to speak in complete sentences Cardio: Rate: regular rate Peripheral pulses: Peripheral pulses 2+ throughout GI: Palpation (GI): Soft to palpation Skin: Lesions: no lesions Rashes: no rashes Extrem: Other: right hip dressing is c/d/i. Able to dorsi/plantar flex. Calf is supple and nontender. Sensation intact. Pedal pulse intact. DS: Data Data Completed and Pending Completed studies during hospitalization [Text1]: Pending at discharge 12/04/23 09:48 Surgical [PTH] Routine Labs on day of discharge: Laboratory Results - last 24 hr 12/06/23 12/06/23 12/06/23 11:22 14:59 16:09 WBC RBC Hgb Hct MCV MCH MCHC RDW Plt Count MPV Immature Gran % (Auto) Neut % (Auto) Lymph % (Auto) [place] % (Auto) Eos % (Auto) Baso % (Auto) Lymph # (Auto) [place] # (Auto) Eos # (Auto) Baso # (Auto) Abs Immat Gran (auto) Absolute Neuts (auto) Absolute Nucleated RBC Nucleated RBC % (auto) Sodium Potassium Chloride Carbon Dioxide Anion Gap BUN Creatinine Estim Creat Clear Calc Estimated GFR POC Glucose 79 113 Fasting Glucose Calcium Blood Type A Positive Antibody Screen NEGATIVE Crossmatch See Detail 12/06/23 12/07/23 12/07/23 20:25 05:17 07:40 WBC 7.8 RBC 2.37 L Hgb 7.8 L Hct 23.1 L MCV 97.5 MCH 32.9 MCHC 33.8 RDW 15.6 Plt Count 92 L MPV 10.6 Immature Gran % (Auto) 0.6 H Neut % (Auto) 82.3 H Lymph % (Auto) 5.7 L [place] % (Auto) 10.3 Eos % (Auto) 1.0 Baso % (Auto) 0.1 Lymph # (Auto) 0.4 L [place] # (Auto) 0.8 Eos # (Auto) 0.1 Baso # (Auto) 0.0 Abs Immat Gran (auto) 0.05 H Absolute Neuts (auto) 6.4 Absolute Nucleated RBC 0.000 Nucleated RBC % (auto) 0.0 Sodium 134 L Potassium 5.0 Chloride 98 Carbon Dioxide 26 Anion Gap 15 BUN 47 H Creatinine 5.92 H* Estim Creat Clear Calc 8.5 Estimated GFR 9 POC Glucose 101 94 Fasting Glucose 96 Calcium 8.1 L Blood Type Antibody Screen Crossmatch Discharge Plan Discharge Anticipated Discharge Date/Time: 12/05/23 19:38 Patient Disposition: Home Health Service Discharge Diagnosis: s/p RTHA Referrals: Estefanía RODRIGUEZ [Outside] - 1 Week Brian Bajwa PA-C [Physician Personal Computer Specialist] - 12/20/23 11:30 am Discharge Medications: New enoxaparin 30 mg/0.3 mL Syringe 30 mg subcut Q24H 42 Days Qty: 12.6 0RF acetaminophen 325 mg Tablet 650 mg PO Q6H PRN (Reason: Pain, Mild (Pain Scale 1-3), fever or headache) 30 Days Qty: 240 0RF oxycodone 5 mg tablet 5 mg PO Q4H PRN (Reason: pain (scale score 4-6)) 7 Days Qty: 42 0RF Rx Instructions: Partial Fill upon patient request. Continued (DME) walker Misc See Rx Instructions .MEDSUPPLY Qty: 1 0RF Rx Instructions: Folding Front wheeled walker multivitamin Tablet 1 tab PO DAILY atorvastatin 10 mg Tablet 10 mg PO BEDTIME furosemide 40 mg tablet 40 mg PO DAILY carvedilol 6.25 mg tablet 6.25 mg PO BID Joint Formula PO DAILY (DME) lancets 33 gauge misc See Rx Instructions Not Applicable DAILY Qty: 100 Rx Instructions: As directed (DME) blood sugar diagnostic Strip See Rx Instructions Not Applicable DAILY Qty: 10 Rx Instructions: As directed Held aspirin 81 mg Tablet,Delayed Release (Dr/Ec) 81 mg PO BEDTIME Hold Instructions: Resume on 01/17/24. Hold until done with Lovenox course. Discharge Orders: Discharge Order (Routine); Ordered 12/07/23 Ordered By: Stefania Munson Diet: Advance to usual diet Activity on Discharge: Use cane or walker Stand Alone Forms: Patient Portal Discharge page Print Language: [place] Care Plan Goals: restore fxn to right hip Health Concerns: none Plan of Treatment: Physical Therapy for total hip arthroplasty: posterior precautions, gait training, ROM, strength Limit stair climbing No showering, no tub bath-keep dressing clean, dry and intact No driving x6 weeks Continue Lovenox injections for anticoagulant x 6 weeks Follow up with [facility] in 2 [facility] Assessment: stable for discharge
[2023-12-07] MEDS: Docusate Sodium 100 MG CAPSULE PO (08:14)
[2023-12-07] MEDS: Furosemide 40 MG TABLET PO (08:14)
[2023-12-07] MEDS: carvediloL 6.25 MG TABLET PO (08:15)
[2023-12-07] MEDS: oxyCODONE HCl ER 10 MG TAB.ER.12H PO (08:15)
[2023-12-07] MEDS: 0.9 % Sodium Chloride Flush 3 ML SYRINGE IVFLUSH (08:16)
--- NOTE | 2023-12-07 08:28 | P.F2F_ITS ---
Service Date Service Date: 12/07/23 Encounter Date of encounter: 12/07/23 Reasons for Services Signs and symptoms assessed: s/p RTHA Pt. is considered homebound due to recent surgery. Unable to drive, poor balance, poor gait mechanics. Reason for physical therapy: home safety and mobility, therapeutic exercises, restore joint function, gait/transfer training, assess need for DME and ADL training Reason for occupational therapy: home safety and mobility, therapeutic exercises, restore joint function, gait/transfer training, assess need for DME and ADL training Homebound: Leaving the home is medically contraindicated at this time without the asist of a device and/or another person due th the listed conditions above and below. Reason homebound: unsteady gait / fall risk, leg weakness, pain with ambulation, poor balance / fall risk and unable to drive Certification: Based on the above findings, I certify that this patient is confined to the home and needs intermittent mcfp care, physical therapy and/or speech therapy, or continues to need occupational therapy. The patient is under my care, and I have initiated the establishment of the plan of care. The patient will be followed by a physician who will periodically review the plan of care. Time Spent With Patient Time: Total time managing care of this patient today ____ minutes.
--- NOTE | 2023-12-07 11:18 | HO.PM.IMPN ---
Subjective Subjective Date of Service: 12/07/23 Interval History: Being followed for anemia. Patient denies chest pain, no palpitations, no lightheadedness, no dizziness ambulated in hallway without acute symptoms tolerating diet, scheduled for hemodialysis this morning. Review of Systems All other system reviewed and are negative Physical Exam Vital Signs: Vital Signs: Last Vital Signs Temp 97.9 F 12/07/23 08:00 Pulse 68 12/07/23 08:00 Resp 12 12/07/23 08:00 BP 127/59 L 12/07/23 08:00 Pulse Ox 100 12/07/23 08:00 O2 Del Method Room Air 12/07/23 08:00 O2 Flow Rate 5 12/04/23 10:40 BMI result Body Mass Index 24.8 Const: Other: General awake alert x3, in no acute distress. Neck no JVD. CVS regular rate rhythm, Respiratory lungs clear to auscultation, no respiratory distress, no wheeze, no rhonchi. Gastrointestinal abdomen soft, non tender, bowel sounds audible Extremities no edema. Right hip incision c/d/i, no swelling or erythema. Neuro non focal Skin no rash Objective Data Active Medications Acetaminophen (Acetaminophen 325 Mg Tablet) 650 mg PO Q6H PRN PRN Reason: Pain, Mild (Pain Scale 1-3), fever or headache Last Admin: 12/06/23 21:02 Dose: 650 mg Documented By: JIAN Atorvastatin Calcium (Atorvastatin Calcium 10 Mg Tablet) 10 mg PO BEDTIME [facility] Last Admin: 12/06/23 18:49 Dose: 10 mg Documented By: JIAN Carvedilol (Carvedilol 6.25 Mg Tablet) 6.25 mg PO BID [facility]; Protocol Last Admin: 12/07/23 08:15 Dose: 6.25 mg Documented By: DARRON Diphenhydramine HCl (Diphenhydramine Hcl 50 Mg/Ml Vial) 25 mg IVPUSH Q4H PRN PRN Reason: Nausea and Vomiting Last Admin: 12/04/23 17:10 Dose: 25 mg Documented By: CRISTINE Docusate Sodium (Docusate Sodium 100 Mg Capsule) 100 mg PO BID [facility] Last Admin: 12/07/23 08:14 Dose: 100 mg Documented By: DARRON Enoxaparin Sodium (Enoxaparin Sodium 30 Mg/0.3 Ml Syringe) 30 mg SUBCUT Q24H [facility] Last Admin: 12/06/23 13:20 Dose: 30 mg Documented By: STEPHANIE Furosemide (Furosemide 40 Mg Tablet) 40 mg PO DAILY [facility]; Protocol Last Admin: 12/07/23 08:14 Dose: 40 mg Documented By: DARRON Glucose (Glucose Gel 15 Gm Gel..Gram.) 15 gm PO Q15M PRN; Protocol PRN Reason: per Hypoglycemia Standing Ord. Hydromorphone HCl (Hydromorphone Hcl 0.5 Mg/0.5 Ml Syringe) 0.25 mg IVPUSH Q4H PRN; Protocol PRN Reason: Pain, Severe (Pain Scale 7-10) Dextrose (D10) 250 mls @ 750 mls/hr IV Q15M PRN; Protocol PRN Reason: per Hypoglycemia Standing Ord. Insulin Human Lispro (Insulin Lispro 100 Unit/Ml 3 Ml Vial) 0 unit SUBCUT QIDACHS [facility]; Protocol Last Admin: 12/07/23 08:16 Dose: Not Given Documented By: DARRON Non-Admin Reason: No Insulin Coverage Lorazepam (Lorazepam 2 Mg/Ml Vial) 0.25 mg IVPUSH Q6H PRN PRN Reason: Nausea and Vomiting Metoclopramide HCl (Metoclopramide Hcl 10 Mg/2 Ml Vial) 5 mg IVPUSH Q6H PRN PRN Reason: Nausea and Vomiting Last Admin: 12/04/23 14:38 Dose: 5 mg Documented By: AYLIN Oxycodone HCl (Oxycodone Hcl Immed Release 5 Mg Tablet) 5 mg PO Q4H PRN PRN Reason: Pain, Moderate(Pain Scale 4-6) Last Admin: 12/06/23 21:02 Dose: 5 mg Documented By: JIAN Oxycodone HCl (Oxycodone Hcl Er 10 Mg Tab.Er.12h) 10 mg PO BID [facility] Last Admin: 12/07/23 08:15 Dose: 10 mg Documented By: DARRON Polyethylene Glycol (Polyethylene Glycol 3350 17 Gm Powd.Pack) 17 gm PO DAILY PRN PRN Reason: consitpation Last Admin: 12/06/23 13:19 Dose: 17 gm Documented By: HO.BEIT Sodium Chloride (0.9 % Sodium Chloride Flush 3 Ml Syringe) 3 ml IVFLUSH QSHIFT [facility] Last Admin: 12/07/23 08:16 Dose: 3 ml Documented By: DARRON Labs 12/07/23 05:17 12/07/23 05:17 Labs: Laboratory Results - last 24 hr 12/06/23 12/06/23 12/06/23 11:22 14:59 16:09 MCV MCH MCHC RDW Plt Count MPV Immature Gran % (Auto) Neut % (Auto) Lymph % (Auto) Nolan % (Auto) Eos % (Auto) Baso % (Auto) Lymph # (Auto) Nolan # (Auto) Eos # (Auto) Baso # (Auto) Abs Immat Gran (auto) Absolute Neuts (auto) Absolute Nucleated RBC Nucleated RBC % (auto) Anion Gap Estim Creat Clear Calc Estimated GFR POC Glucose 79 113 Fasting Glucose Calcium Blood Type A Positive Antibody Screen NEGATIVE Crossmatch See Detail 12/06/23 12/07/23 12/07/23 20:25 05:17 07:40 MCV 97.5 MCH 32.9 MCHC 33.8 RDW 15.6 Plt Count 92 L MPV 10.6 Immature Gran % (Auto) 0.6 H Neut % (Auto) 82.3 H Lymph % (Auto) 5.7 L Nolan % (Auto) 10.3 Eos % (Auto) 1.0 Baso % (Auto) 0.1 Lymph # (Auto) 0.4 L Nolan # (Auto) 0.8 Eos # (Auto) 0.1 Baso # (Auto) 0.0 Abs Immat Gran (auto) 0.05 H Absolute Neuts (auto) 6.4 Absolute Nucleated RBC 0.000 Nucleated RBC % (auto) 0.0 Anion Gap 15 Estim Creat Clear Calc 8.5 Estimated GFR 9 POC Glucose 101 94 Fasting Glucose 96 Calcium 8.1 L Blood Type Antibody Screen Crossmatch Assessment and Plan (1) Anemia: Status: Acute (2) Status post total hip replacement, right: Status: Acute Plan 83/ m with ESRD s/p r hip arthropasty on 12/03 s/p right hip arthroplasty POD# 3 -management per ortho including pain management and dvt prevention anemia of chronic disease with acute drop due to above -status post 1 unit of packed RBC, hemoglobin improved from 7.1-7.8, patient asymptomatic no further transfusion warranted. thrombocytopenia--acute on chronic, repeat platelets are stable -monitor with lovenox ESRD, HD MWF -nephrology following HLD -Lipitor HTN--controlled -continue Coreg, lasix DM--diet controlled, A1C = 5 dvt prophylaxis--lovenox Patient medically stable will sign off. Quality Stroke Does the patient have a stroke diagnosis?: No VTE Prior VTE?: No VTE Risk Level:: Medical - moderate - high VTE Device Contraindication: N/A - Device Ordered VTE Drug Contraindication: N/A - Med Ordered
--- NOTE | 2023-12-07 12:39 | MHC.CM.PN ---
[facility], pts brother will transport him home.
[2023-12-07 12:50] VITALS: BP 150/67; PULSE 65; RESP 14; TEMP 36.4; O2SAT 97
[2023-12-07 12:58] LABS: Glucose, Whole Blood 92 mg/dL (60-115)
--- NOTE | 2023-12-07 14:14 | PC.NURSE ---
PT EDUCATED ON ADMINISTATION OF LOVENOX INJECTIONS. WAS ABLE TO VERBALIZE UNDERSTANDING AND TEACH BACK.
== END 2023-12-07 14:14 | disposition home health service (06) | DRG 469 ==
LOC: HO.SSSA 06:10 → HO.S3 11:34
PROVIDERS: Nurse Practitioner; Nurse Practitioner Acute Care; Physician Assistant; Admitting Provider Physician Assistant; PCP Family Medicine; Visit Provider Orthopaedic Surgery
PROC: (CPT 27130; principal; 2023-12-04 07:30)
DX: M87.051 Idiopathic aseptic necrosis of right femur (principal); N18.6 End stage renal disease; I13.2 Hypertensive heart and chronic kidney disease with heart failure and with stage 5 chronic kidney disease, or end stage renal disease; I50.32 Chronic diastolic (congestive) heart failure; I25.10 Atherosclerotic heart disease of native coronary artery without angina pectoris; E78.5 Hyperlipidemia, unspecified; D69.6 Thrombocytopenia, unspecified; Z95.0 Presence of cardiac pacemaker; E11.22 Type 2 diabetes mellitus with diabetic chronic kidney disease; Z99.2 Dependence on renal dialysis; D63.1 Anemia in chronic kidney disease; E87.5 Hyperkalemia; Z79.82 Long term (current) use of aspirin; Z79.899 Other long term (current) drug therapy
CPT/HCPCS: 27130; 36415; 72170; 80048; 80051; 82565; 82947; 83036; 85025; 86850; 86900; 86901; 86923; 87640; 87641; 88304; 88311; 90999; 97110; 97116; 97162; 97166; 97530; A4649; C1713; C1776; J0131; J1100; J1170; J1200; J1650; J2405; J2598; J2704; J2765; J2795; J3010; J3370; J7120; P9016

== ENCOUNTER → 2023-12-04 05:56 | Outpatient (BNV) | payer MEDICARE, SELFPAY | PROVIDERS: Admitting Provider Physician Assistant; PCP Family Medicine; Visit Provider Orthopaedic Surgery | DX: N18.6 End stage renal disease (principal); Z99.2 Dependence on renal dialysis; D64.9 Anemia, unspecified; Z47.1 Aftercare following joint replacement surgery; Z96.651 Presence of right artificial knee joint | CPT/HCPCS: 27130; 99024; G0180 ==

== ENCOUNTER → 2023-12-04 05:56 | Outpatient (BNV) | payer MEDICARE, SELFPAY | PROVIDERS: Admitting Provider Physician Assistant; PCP Family Medicine; Visit Provider Nurse Practitioner Acute Care | DX: M87.051 Idiopathic aseptic necrosis of right femur (principal) | CPT/HCPCS: 99221; 99231 ==

== ENCOUNTER 2023-12-14 11:51 | Inpatient (IN) | payer MEDICARE, SELFPAY ==
[2023-12-14] VITALS (7 sets, daily range): BP systolic 136–167; BP diastolic 56–70; PULSE 63–75; RESP 13–18; TEMP 36.2–37.1; O2SAT 95–100; BMI 25.0; BMI 25.5
--- NOTE | ~2023-12-14 | XR_ITS ---
EXAMINATION: XR PELVIS CLINICAL INFORMATION: Revision right total hip arthroplasty. COMPARISON: Radiograph right hip 12/14/2023. TECHNIQUE: AP view of the pelvis. FINDINGS: Expected immediate postoperative changes following revision of a total right-sided hip arthroplasty with subcutaneous air, swelling and joint effusion. Surgical jesu noted in the soft tissues of the right hip. Indeterminate single surgical staple projecting over the left hemipelvis, not present on prior images. Redemonstration of a longitudinal fracture along the medial aspect of the proximal femur extending to the lesser trochanter. No interval fractures. No dislocation. 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 Symmetric SI joints. Pubic symphysis and pelvic rim are maintained. Severe atherosclerotic disease. XR/XR pelvis 1-2V IMPRESSION: 1. Expected immediate postoperative changes following revision of a total right-sided hip arthroplasty. 2. Redemonstration of a longitudinal fracture along the medial aspect of the proximal femur extending to the lesser trochanter. 3. Single, isolated staple overlying the left hemipelvis. Recommend correlation with operative note. Electronically signed by: Florencia Kay MD 12/18/2023 09:20 PM EDT
--- NOTE | ~2023-12-14 | XR_ITS ---
EXAMINATION: XR HIP, RIGHT CLINICAL INFORMATION: Pain, injury. COMPARISON: Pelvic radiograph 12/04/2023. TECHNIQUE: Two views of the right hip. FINDINGS: Unchanged postoperative appearance of total right hip arthroplasty with similar degree of soft tissue swelling and redemonstration of surgical skin jesu in the right proximal thigh. No acute-appearing fractures or dislocation. Decreased bone mineralization. Moderate degenerative facet arthritis of the left hip. Symmetric SI joints. Pubic symphysis and pelvic rim are maintained. Partially seen severe lumbar spondylosis. Pelvic phleboliths. Severe atherosclerotic disease. XR/XR hip RT w PEL1V IMPRESSION: No acute-appearing fractures or dislocation. Stable appearance of total right hip arthroplasty compared to most recent prior. Recommend correlation with already ordered CT of the right hip/right femur for additional details. Electronically signed by: Florencia Kay MD 12/14/2023 02:37 PM EDT
--- NOTE | ~2023-12-14 | CT_ITS ---
EXAMINATION: CT FEMUR WITHOUT CONTRAST, RIGHT CLINICAL INFORMATION: Pain, recent hip replacement COMPARISON: Same-day radiograph. Radiographs 12/04/2023. TECHNIQUE: A noncontrast CT of the right femur is performed with sagittal and coronal reformats This CT examination was performed using dose optimization techniques as appropriate, variously including the following: *Automated exposure control *Adjustment of mA and/or kV according to patient size (this includes techniques or standardized protocols for targeted exams where dose is matched to indication/reason for exam; i.e. extremities or head) *Use of iterative reconstruction technique DLP: 365 mGy-cm FINDINGS: Total hip arthroplasty components are in the usual alignment. There is a nondisplaced longitudinal fracture along the medial aspect of the proximal femur, which extends deep to the lesser trochanter and along the more anterior cortex over a length of approximately 5.5 cm. The distal aspect of this nondisplaced fracture is at the mid aspect of the femoral stem. This is not demonstrated on the postoperative radiograph. Diffuse osteopenia. Diffuse vascular calcifications. There is a collection posterior to the greater trochanter and proximal femur which is partially obscured by metal artifact although measures approximately 6.5 x 3.5 in transverse dimensions, and a length of 12 cm. This could represent postsurgical change. Skin jesu overlie the operative site. CT/CT femur RT wo IV con IMPRESSION: 1. There is a nondisplaced longitudinal fracture along the medial aspect of the proximal femur extending deep to the lesser trochanter and along the more anterior cortex over a length of approximately 5.5 cm. The distal extent of this fracture is at the mid aspect of the femoral stem. 2. There is a collection posterior to the greater trochanter and proximal femur which is partially obscured by metal artifact although measures approximately 6.5 x 3.5 in transverse dimensions and a length of 12 cm. This could represent postsurgical change. Electronically signed by: Elder Molina MD 12/14/2023 03:44 PM EDT
--- NOTE | 2023-12-14 11:52 | ED_ITS ---
HPI - General Adult General Chief complaint: Extremity Injury, Lower Stated complaint: HIP PAIN MISSED DIALYSIS Time Seen by Provider: 12/14/23 11:52 Source: patient and EMS Mode of arrival: EMS Limitations: no limitations History of Present Illness ED Provider: Natalya Murrell PA-C HPI narrative: Patient is an 83 year old assigned male at with a history of CKD, ESRD on dialysis MWF, HTN, Cardiomyopathy, HTN, and recent hip placement on 12/04/2023 presenting to the emergency department today with worsening right hip pain. Patient states that he was doing well after his right hip replacement but ever since he woke up this morning, he has had increasing right thigh pain that is significantly worse with pressure on his right lower extremity and any movement. Patient states that he has not dialyzed yet today and he is unable to ambulate. Patient denies any dizziness, lightheadedness, abdominal pain, nausea, vomiting, fever, chills, blurry vision, double vision, loss of vision, chest pain, difficulty breathing, shortness of breath, back pain, night sweats, pain with urination, increased urinary frequency, increased urinary urgency, blood in his urine or stool, syncope or a near syncopal episode, recent trauma or falls, bowel incontinence, bladder incontinence, or any other complaints at this time. Relieving factors: immobilization Exacerbating factors: movement Associated symptoms: denies other symptoms Treatments prior to arrival: none Related Data Home Medications ?Medication ?Instructions ?Recorded ?Confirmed atorvastatin 10 mg tablet 10 mg PO BEDTIME 01/14/20 12/14/23 multivitamin 1 tab PO DAILY 01/14/20 12/14/23 blood sugar diagnostic #10 ea 04/20/20 11/01/23 lancets 33 gauge #100 ea 04/20/20 11/01/23 furosemide 40 mg tablet 40 mg PO DAILY 08/04/20 12/14/23 carvedilol 6.25 mg tablet 6.25 mg PO BID 11/20/23 12/14/23 Previous Rx's ?Medication ?Instructions ?Recorded walker #1 ea 11/19/23 acetaminophen 325 mg tablet 650 mg (2 x 325 mg) PO Q6H PRN 12/05/23 Pain, Mild (Pain Scale 1-3), fever or headache 30 days #240 tabs enoxaparin 30 mg/0.3 mL 30 mg (0.3 mL) subcut Q24H 42 days 12/05/23 subcutaneous syringe #12.6 mL oxycodone 5 mg tablet 5 mg PO Q4H PRN pain (scale score 12/07/23 4-6) 7 days #42 tabs Allergies Allergy/AdvReac Type Severity Reaction Status Date / Time cephalexin [From KEFLEX] Allergy Severe ANGIO EDEMA Verified 12/14/23 12:02 lisinopril [LISINOPRIL] Allergy Severe FACIAL Verified 12/14/23 12:02 EDEMA simvastatin Allergy Severe renal Verified 12/14/23 12:02 insufficiency amlodipine Allergy Mild renal Verified 12/14/23 12:02 insuff in combo w/ statin rx Review of Systems 2 Constitutional: Constitutional: Reports no additional constitutional complaints, Denies chills, Denies fever(s) and Denies night sweats Eyes: Eyes: Reports no additional eye complaints, Denies blurry vision, Denies change in vision, Denies diplopia, Denies eye discharge, Denies loss of vision and Denies eye pain ENT: Denies dizziness Cardiovascular: Cardiovascular: Reports no additional cardiovascular complaints, Denies chest pain, Denies lightheadedness, Denies Loss of Consciousness and Denies dyspnea Respiratory: Respiratory: Reports no additional respiratory complaints and Denies dyspnea Gastrointestinal: Gastrointestinal: Reports no additional gastrointestinal complaints, Denies abdominal pain, Denies melena, Denies hematochezia, Denies change in bowel habits and Denies change in stool character Genitourinary: Genitourinary: Reports no additional male genitourinary complaints, Denies hematuria, Denies oliguria, Denies difficulty urinating, Denies dysuria, Denies urinary frequency, Denies urinary hesitancy, Denies urinary incontinence and Denies urinary urgency Musculoskeletal: Musculoskeletal: Reports no additional musculoskeletal complaints, Denies numbness and Denies tingling Comments: right thigh pain Neurologic: Denies dizziness, Denies loss of vision, Denies numbness and Denies tingling Psychiatric: Psychiatric: Reports no additional psychiatric complaints Endocrine: Endocrine: Reports no additional endocrine complaints Hematologic/Lymphatic: Hematologic/Lymphatic: Reports no additional hematologic/lymphatic complaints Allergic/Immunologic: Allergic/Immunologic: Reports no additional allergic/immunologic complaints PMFSH Past Medical History Attestation statement: The following information was validated with the patient. (patient's brother validated all information) Source: old records reviewed, obtained from family (patient's brother provided additional history and confirmed the history provided by the patient.) and nursing notes reviewed Medical History Avascular necrosis of bone of right hip Presence of arterial-venous shunt (for dialysis) History of transfusion of packed red blood cells ESRD (end stage renal disease) on dialysis Normally functioning cardiac pacemaker present Essential hypertension Valvular heart disease Chronic heart failure with preserved ejection fraction (HFpEF) Pulmonary hypertension Arthritis Anemia NAVA (dyspnea on exertion) Rhabdomyolysis due to statin therapy Chronic kidney disease Diabetes Atherosclerotic cardiovascular disease Aortic valvular disease Pacemaker CHF (congestive heart failure) HTN (hypertension) Surgical History History of cardiac catheterization (~08/2020) History of tonsillectomy Status cardiac pacemaker S/P excision of lipoma Hx of colonoscopy Family History Family History Father Stroke Mother Stroke Diabetes Social History Social History Household Members: Spouse Housing: House Are you a primary healthcare analyst to a significant other at home: No Do you presently have visiting nurse or other home services: Yes (elder services, meals on wheels) Alcohol intake: current Alcohol intake frequency: does not drink Alcohol type: hard liquor Patient Tobacco Use Status: Never used Tobacco Smoked in Last 30 Days: No Use of substances other than those prescribed or required for medical reasons: No Advance Directives: Yes Advance Directives on File: Yes Advance Directives Date on File: 04/26/20 Do you have a plan to hurt others: No Plan service: No Current occupational status: retired Current occupation: rt handed Physical Exam ED Vital Signs: Vital Signs - 24 hr 12/14/23 12:00 12/14/23 14:00 12/14/23 16:06 Temperature 98.1 F 98.1 F Pulse Rate 71 67 75 Respiratory Rate 16 13 15 Blood Pressure 167/64 H 136/56 L 160/60 H Pulse Oximetry 100 96 95 Oxygen Delivery Method Room Air Room Air Room Air BMI result Body Mass Index 25.0 Const General: cooperative, no acute distress, alert and awake Nutritional Appearance: well nourished Orientation/consciousness: patient oriented x3 Limitations: no limitations HENMT Head: Yes normal to inspection and Yes atraumatic Ears: hearing grossly normal bilaterally and external ears normal General nose exam: Normal external nose present, no nasal discharge noted and no epistaxis Face and sinus: Yes normal facial exam, No abrasion and No laceration Mouth: Normal oral and palatal mucosa present, no drooling and no muffled voice Eyes General: appearance normal, both eyes and all related structures Periorbital: periorbital findings normal Eyelids: Yes eyelids normal Conjunctivae: conjunctivae normal Pupils: Equal, round and reactive pupils present EOM: EOMs intact bilaterally Neck Neck: Yes normal visual inspection, Yes full ROM and Yes no lymphadenopathy Chest Chest palpation & inspection: normal inspection of the chest Resp Effort & Inspection: normal respiratory effort and able to speak in complete sentences GI Inspection: Yes normal to inspection Back/Spine/Pelvis Other: significant pain of the right thigh with movement / rotation / pressure of the right foot Neuro General: patient oriented x3 and moves all extremities Cranial nerves: Yes Equal, round and reactive pupils present Cognition (Neuro): normal cognition Extrem Other: pain with palpation of the right medial thigh pain with all ROM of the right hip / thigh General: Yes normal to inspection and Yes capillary refill normal Psych Appearance: grossly normal Mental Status: mental status grossly normal Affect: normal affect Attitude: cooperative Thought process: Normal thought process present Thought content: Normal thought content present Insight: Good insight present (Psych) Medications Administered Discontinued Medications Generic Name Dose Route Start Last Admin Trade Name Freq PRN Reason Stop Dose Admin Morphine Sulfate 2 mg 12/14/23 14:31 12/14/23 14:44 Morphine Sulfate 2 Mg/Ml Cartridge IVPUSH 12/14/23 14:32 2 mg ONCE ONE Administration Protocol Ondansetron HCl 4 mg 12/14/23 14:31 12/14/23 14:44 Ondansetron Hcl 4 Mg/2 Ml Vial IVPUSH 12/14/23 14:32 4 mg ONCE ONE Administration Oxycodone HCl 10 mg 12/14/23 12:36 12/14/23 12:41 Oxycodone Hcl Immed Release 5 Mg Tablet PO 12/14/23 12:37 10 mg ONCE ONE Administration Medical Decision Making Medical Decision Making MDM Narrative: Patient is an 83 year old assigned male at with a history of CKD, ESRD on dialysis MWF, HTN, Cardiomyopathy, HTN, and recent hip placement on 12/04/2023 presenting to the emergency department today with worsening right hip pain. Patient's physical exam was as noted in the physical exam portion of this note. Patient's blood work showed hyperkalemia, an elevated CR, and an elevated BUN consistent with someone with CKD who has not dialyzed today. Patient's right hip x-ray showed no acute process. Given patient's inability to ambulate and continued pain, I obtained a CT scan of the right femur. The CT scan of the right femur showed a longitudinal fracture of the right femur. I consulted with the orthopedic team who stated the patient would need a revision of the replacement. I spoke to the covering computer aide Dr. Means who recommended the patient be dialyzed today. I spoke to the hospitalist team who agreed to admission. I explained my physical exam findings as well as all test results to the patient and the patient's brother. I answered all questions asked by the patient and the patient's brother. Patient and the patient's brother verbalized agreement and understanding with this treatment plan and admission. Differential Diagnosis Differential Diagnoses: The differential diagnosis associated with the presentation includes Right hip pain Femur fracture CKD HyperKalemia Admission/Observation Consideration of admission/observation: Escalation of care including admission/observation considered Patient admitted. Consult Healthcare Provider Management of the patient was discussed with: Hospitalist (Agreed to admission as noted in the MDM Rationale portion of this note.) and Astrophysics Teacher (spoke to the nephrology and orthopedic teams as noted in the MDM Rationale portion of this note.) Lab Data [facility] Lab Attestation statement: I reviewed the patient's lab results. My interpretation of these results are in the MDM Rationale portion of this note. 12/14/23 13:40 12/14/23 13:40 Labs: Lab Results 12/14/23 Range/Units 13:40 WBC 8.2 (4.8-10.8) X10*3/uL RBC 2.91 L D (4.60-5.80) X10*6/uL Hgb 9.5 L D (14.0-18.0) g/dl Hct 28.8 L D (42.0-52.0) % MCV 99.0 H (80.0-98.0) fL MCH 32.6 (27.0-33.0) pg MCHC 33.0 (31.0-36.0) g/dl RDW 14.4 (11.0-16.0) % Plt Count 215 D (160-400) X10*3/uL MPV 9.6 (9.4-12.4) fL Immature Gran % (Auto) 1.5 H (0.0-0.4) % Neut % (Auto) 87.1 H (45-73) % Lymph % (Auto) 4.3 L (20-40) % Greer % (Auto) 5.3 (2-11) % Eos % (Auto) 1.2 (0-4) % Baso % (Auto) 0.6 (0-2) % Lymph # (Auto) 0.4 L (1.2-4.9) X10*3/uL Greer # (Auto) 0.4 (0.1-1.2) X10*3/uL Eos # (Auto) 0.1 (0.0-0.4) X10*3/uL Baso # (Auto) 0.1 (0.0-0.2) X10*3/uL Abs Immat Gran (auto) 0.12 H (0.00-0.03) X10*3/uL Absolute Neuts (auto) 7.1 (2.0-8.3) x10*3/uL Absolute Nucleated RBC 0.000 (0.0-0.012) X10*3/uL Nucleated RBC % (auto) 0.0 (0.0-0.2) /100WBC Sodium 136 (135-145) mmol/L Potassium 5.7 H (3.3-5.1) mmol/L Chloride 96 (96-108) mmol/L Carbon Dioxide 28 (22-29) mmol/L Anion Gap 18 (12-20) BUN 83 H (9-16) mg/dL Creatinine 7.70 H* (0.5-1.4) mg/dL Estim Creat Clear Calc 6.5 Estimated GFR 7 Random Glucose 107 (60-115) mg/dL Calcium 9.3 D (8.4-10.2) mg/dL Magnesium 2.8 H (1.6-2.6) mg/dL Total Bilirubin 0.4 (0.0-1.0) mg/dL AST 17 (5-37) U/L ALT 18 (0-40) U/L Alkaline Phosphatase 86 (39-117) U/L Total Protein 6.3 L (6.5-8.0) g/dL Albumin 3.3 L (3.5-5.0) g/dL Influenza Type A (PCR) NEGATIVE (Negative) Influenza Type B (PCR) NEGATIVE (Negative) RSV RNA Qual (PCR) NEGATIVE (Negative) SARS-CoV-2 RNA (RT-PCR) NEGATIVE (Negative) Independent Interpretation I performed an independent interpretation of an: Plain X-Ray and CT Scan Interpretation: My interpretation is in agreement with the radiologist's impression of these imaging studies. - EXAMINATION: XR HIP, RIGHT CLINICAL INFORMATION: Pain, injury. COMPARISON: Pelvic radiograph 12/04/2023. TECHNIQUE: Two views of the right hip. FINDINGS: Unchanged postoperative appearance of total right hip arthroplasty with similar degree of soft tissue swelling and redemonstration of surgical skin jesu in the right proximal thigh. No acute-appearing fractures or dislocation. Decreased bone mineralization. Moderate degenerative facet arthritis of the left hip. Symmetric SI joints. Pubic symphysis and pelvic rim are maintained. Partially seen severe lumbar spondylosis. Pelvic phleboliths. Severe atherosclerotic disease. XR/XR hip RT w PEL1V IMPRESSION: No acute-appearing fractures or dislocation. Stable appearance of total right hip arthroplasty compared to most recent prior. Recommend correlation with already ordered CT of the right hip/right femur for additional details. Electronically signed by: Florencia Kay MD 12/14/2023 02:37 PM EDT Dictated By: Florencia Kay Signed By: Electronically signed by Florencia Rahul 12/14/23 1437 - EXAMINATION: CT FEMUR WITHOUT CONTRAST, RIGHT CLINICAL INFORMATION: Pain, recent hip replacement COMPARISON: Same-day radiograph. Radiographs 12/04/2023. TECHNIQUE: A noncontrast CT of the right femur is performed with sagittal and coronal reformats This CT examination was performed using dose optimization techniques as appropriate, variously including the following: *Automated exposure control *Adjustment of mA and/or kV according to patient size (this includes techniques or standardized protocols for targeted exams where dose is matched to indication/reason for exam; i.e. extremities or head) *Use of iterative reconstruction technique DLP: 365 mGy-cm FINDINGS: Total hip arthroplasty components are in the usual alignment. There is a nondisplaced longitudinal fracture along the medial aspect of the proximal femur, which extends deep to the lesser trochanter and along the more anterior cortex over a length of approximately 5.5 cm. The distal aspect of this nondisplaced fracture is at the mid aspect of the femoral stem. This is not demonstrated on the postoperative radiograph. Diffuse osteopenia. Diffuse vascular calcifications. There is a collection posterior to the greater trochanter and proximal femur which is partially obscured by metal artifact although measures approximately 6.5 x 3.5 in transverse dimensions, and a length of 12 cm. This could represent postsurgical change. Skin jesu overlie the operative site. CT/CT femur RT wo IV con IMPRESSION: 1. There is a nondisplaced longitudinal fracture along the medial aspect of the proximal femur extending deep to the lesser trochanter and along the more anterior cortex over a length of approximately 5.5cm. The distal extent of this fracture is at the mid aspect of the femoral stem. 2. There is a collection posterior to the greater trochanter and proximal femur which is partially obscured by metal artifact although measures approximately 6.5 x 3.5 in transverse dimensions and a length of 12 cm. This could represent postsurgical change. Electronically signed by: Elder Molina MD 12/14/2023 03:44 PM EDT RP Dictated By: Elder Molina MD Signed By: Electronically signed by Elder Molina MD 12/14/23 1544 Radiology Impression Discussion of test interpretation with radiology: I have reviewed the radiologist's reading. Independent Historian Clinical information obtained from an independent historian. History obtained from or confirmed by: EMS (EMS provided additional history and confirmed the history provided by the patient.) and Other (patient's brother provided additional history and confirmed the history provided by the patient.) Critical Care Time Critical Care Time Critical Care Time: Yes Total Critical Care Time: 48 Attestation: I spent 48 minutes of Critical Care Time with this patient. This does not include time spent on separately reported billable procedures. Discharge Plan Discharge Clinical Impression: Femur fracture, CKD (chronic kidney disease), Acute hyperkalemia Patient Disposition: Admitted As Inpatient Print Language: Spanish
[2023-12-14] MEDS: oxyCODONE HCl Immed Release 5 MG TABLET 10 MG PO (12:41)
[2023-12-14 13:45] LABS: MANUAL DIFF FLAG NO
[2023-12-14 13:52] LABS: Basophils Absolute Auto 0.1 X10*3/uL (0.0-0.2); Basophils Percent Auto 0.6 % (0-2); Eosinophils Absolute Auto 0.1 X10*3/uL (0.0-0.4); Eosinophils Percent Auto 1.2 % (0-4); Hematocrit 28.8 % (42.0-52.0); Hemoglobin 9.5 g/dl (14.0-18.0); Imm Gran Abs Auto 0.12 X10*3/uL (0.00-0.03); Imm Gran Pct Auto 1.5 % (0.0-0.4); Lymphocytes Absolute Auto 0.4 X10*3/uL (1.2-4.9); Lymphocytes Percent Auto 4.3 % (20-40); Mean Corpuscular Hemoglobin 32.6 pg (27.0-33.0); Mean Platelet Volume 9.6 fL (9.4-12.4); Monocytes Absolute Auto 0.4 X10*3/uL (0.1-1.2); Monocytes Percent Auto 5.3 % (2-11); Neutrophils Absolute Auto 7.1 x10*3/uL (2.0-8.3); Neutrophils Percent Auto 87.1 % (45-73); Platelet Count 215 X10*3/uL (160-400); Red Blood Count 2.91 X10*6/uL (4.60-5.80); Red Cell Distribution Width 14.4 % (11.0-16.0); White Blood Count 8.2 X10*3/uL (4.8-10.8)
--- NOTE | 2023-12-14 14:09 | MHC.CM.ED ---
Patient is currently in ER. Received notification that patient is active with [facility]. Referral made in [facility] so agency can follow for d/c needs.
[2023-12-14 14:13] LABS: Alanine Aminotransferase 18 U/L (0-40); Albumin Level 3.3 g/dL (3.5-5.0); Alkaline Phosphatase 86 U/L (39-117); Anion Gap 18 (12-20); Aspartate Amino Transferase 17 U/L (5-37); Bilirubin Total 0.4 mg/dL (0.0-1.0); Blood Urea Nitrogen 83 mg/dL (9-16); Calcium 9.3 mg/dL (8.4-10.2); Carbon Dioxide 28 mmol/L (22-29); Chloride 96 mmol/L (96-108); Creatinine Clr Calc Pharmacy 6.5; Estimated Glomerular Filt Rate 7; Glucose Random 107 mg/dL (60-115); Magnesium 2.8 mg/dL (1.6-2.6); Potassium 5.7 mmol/L (3.3-5.1); Sodium 136 mmol/L (135-145); Total Protein 6.3 g/dL (6.5-8.0)
[2023-12-14 14:37] LABS: Influenza A PCR NEGATIVE (Negative); Influenza B PCR NEGATIVE (Negative); Resp Syncy Virus RNA Qual PCR NEGATIVE (Negative); SARS COV2 PCR INHOUSE NEGATIVE (Negative)
[2023-12-14] MEDS: Morphine Sulfate 2 MG/ML CARTRIDGE IVPUSH (14:44)
[2023-12-14] MEDS: ondansetron HCL 4 MG/2 ML VIAL IVPUSH (14:44)
--- NOTE | 2023-12-14 16:11 | PM.EVENT ---
Event Note Date of Service: 12/14/23 Event Note: Right hip periprosthetic fracture -patient will be admitted to medicine for pain mgmnt and dialysis Patient should remain NWB RLE -will plan revision surgery next week Full consult note to follow Time Spent With Patient Time: Total time managing care of this patient today ____ minutes.
--- NOTE | 2023-12-14 16:13 | P.CONOP_ITS ---
<Statement entered by Sean Pleitez MD - 01/01/24 09:16> I saw and evaluated this patient. I agree with PA assessment and plan. I completed the assessment and plan in its entirety. The patient visit totaled 25 min, 15 of which I spent directly counseling the patient. I discussed the risks benefits and alternatives including but not limited to the risk of pain, infection, stiffness, need for further surgery as well as potential medical complications such as blood clots, pulmonary embolism and cardiac complications. History of Present Illness HPI Consult date: 12/14/23 Chief complaint: Right hip fracture, missed dialysis Narrative: 83 yo male admitted to the medical service after presenting to the ED with worsening right hip pain and being unable to attend his dialysis. In the ED, an xray and CT of the right hip/pelvis was obtained which demonstrated a non displaced fracture through the proximal femur extending deep to the lesser trochanter and along the more anterior cortex with evidence of stem subsiding below the level of the calcar when compared to post op xrays. Orthopedics was consulted for further orthopedic recommendations and potential surgical intervention. Review of Systems 2 Review of Systems: Yes all other systems are reviewed and are negative [facility] Past Medical History Medical History Avascular necrosis of bone of right hip Presence of arterial-venous shunt (for dialysis) History of transfusion of packed red blood cells ESRD (end stage renal disease) on dialysis Normally functioning cardiac pacemaker present Essential hypertension Valvular heart disease Chronic heart failure with preserved ejection fraction (HFpEF) Pulmonary hypertension Arthritis Anemia NAVA (dyspnea on exertion) Rhabdomyolysis due to statin therapy Chronic kidney disease Diabetes Atherosclerotic cardiovascular disease Aortic valvular disease Pacemaker CHF (congestive heart failure) HTN (hypertension) Family History Family History Father Stroke Mother Stroke Diabetes Surgical History Surgical History History of cardiac catheterization (~08/2020) History of tonsillectomy Status cardiac pacemaker S/P excision of lipoma Hx of colonoscopy Social History Social History Household Members: Spouse Housing: Apartment Are you a primary personal care home administrator to a significant other at home: No Do you presently have visiting nurse or other home services: Yes (elder services, meals on wheels) Alcohol intake: current Alcohol intake frequency: does not drink Alcohol type: hard liquor Patient Tobacco Use Status: Never used Tobacco Advance Directives Date on File: 04/26/20 service: Yes Current occupational status: retired Current occupation: rt handed Meds Allergies Allergy/AdvReac Type Severity Reaction Status Date / Time cephalexin [From KEFLEX] Allergy Severe ANGIO EDEMA Verified 12/14/23 12:02 lisinopril [LISINOPRIL] Allergy Severe FACIAL Verified 12/14/23 12:02 EDEMA simvastatin Allergy Severe renal Verified 12/14/23 12:02 insufficiency amlodipine Allergy Mild renal Verified 12/14/23 12:02 insuff in combo w/ statin rx Home Medications ?Medication ?Instructions ?Recorded ?Confirmed ?Last Taken ?Type atorvastatin 10 mg tablet 10 mg PO BEDTIME 01/14/20 12/14/23 12/13/23 History multivitamin 1 tab PO DAILY 01/14/20 12/14/23 12/14/23 08:00 History blood sugar diagnostic #10 ea 04/20/20 11/01/23 Unknown History lancets 33 gauge #100 ea 04/20/20 11/01/23 Unknown History furosemide 40 mg tablet 40 mg PO DAILY 08/04/20 12/14/23 12/14/23 08:00 History carvedilol 6.25 mg tablet 6.25 mg PO BID 11/20/23 12/14/23 12/14/23 08:00 History Physical Exam 2 Vital Signs: Vital Signs: Last Vital Signs Temp 98.1 F 12/14/23 16:06 Pulse 75 12/14/23 16:06 Resp 15 12/14/23 16:06 BP 160/60 H 12/14/23 16:06 Pulse Ox 95 12/14/23 16:06 O2 Del Method Room Air 12/14/23 16:06 BMI result Body Mass Index 25.0 Const: General: cooperative, healthy appearing, comfortable and no acute distress Extrem: Other: Right hip dressing intact. Pain with log roll, he is unable to SLR. NVI. Results Labs 12/22/23 05:56 12/22/23 05:56 Labs: Abnormal lab results 12/14/23 Range/Units 13:40 RBC 2.91 L D (4.60-5.80) X10*6/uL Hgb 9.5 L D (14.0-18.0) g/dl Hct 28.8 L D (42.0-52.0) % MCV 99.0 H (80.0-98.0) fL Immature Gran % (Auto) 1.5 H (0.0-0.4) % Neut % (Auto) 87.1 H (45-73) % Lymph % (Auto) 4.3 L (20-40) % Lymph # (Auto) 0.4 L (1.2-4.9) X10*3/uL Abs Immat Gran (auto) 0.12 H (0.00-0.03) X10*3/uL Potassium 5.7 H (3.3-5.1) mmol/L BUN 83 H (9-16) mg/dL Creatinine 7.70 H* (0.5-1.4) mg/dL Magnesium 2.8 H (1.6-2.6) mg/dL Total Protein 6.3 L (6.5-8.0) g/dL Albumin 3.3 L (3.5-5.0) g/dL H & H 12/14/23 Range/Units 13:40 Hgb 9.5 L D (14.0-18.0) g/dl Hct 28.8 L D (42.0-52.0) % All other labs normal. Assessment and Plan (1) Femur fracture: Status: Acute (2) Status post total hip replacement, right: Status: Acute Plan I discussed the case with Dr Pleitez and explained the extent of the injury to the patient and options available which include surgical intervention. I explained the procedure in detail along with the length of recovery and rehab course. I explained the risk, benefits and alternatives. Risk including, but not limited to infection, blood clots, bleeding, non union or malunion and nerve/tissue damage to surrounding areas. I answered all their questions and with their understanding they have consented to move forward with Right hip Revision CHERYLE. The patient will be T&S, med clearance obtained and will be booked accordingly. Procedures Date of Service Date of Service: 12/31/23
--- NOTE | 2023-12-14 16:20 | MHC.EDTECH ---
This pct assumed care of patient at 1500 ,vitals taken ,All extra blankets removed from underneath Patient , belongings list done ,call [place] within Pt reach .
--- NOTE | 2023-12-14 16:25 | PHA.MEDREC ---
Addendum entered by Alisson Casey RPh 12/14/23 16:31: Reviewed by [facility] Original Note: Pharmacy Consult ? Medication Reconciliation Pharmacy has completed the medication reconciliation. Confirmed medications with patient with no issues and patient was able to confirm dosing and how he takes them. Patient confirmed he stopped the baby aspirin 11/23 for surgery and doesnt know when he is gonna start it up again. Patient states he still has Oxycodone 5mg tabs at home still and he took one this morning for the pain but sated he didn't have to take it before that since 12/05 and only take it if he absolutely needs it. He took all his regular medications in the morning except Atorvastatin 10 which he took last night.
--- NOTE | 2023-12-14 16:53 | PM.IMHP ---
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 Patient was recently discharged from the hospital last week after receiving a right CHERYLE on 12/04/2023. Reports began experiencing right hip pain on Sunday into Sunday of this week after he stopped taking his opioid pain medication over the weekend. During Pt he found that his right leg was not as strong as it was the previous week. This morning pain and right hip had significantly increased and patient was unable to to ambulate or tolerate weight-bearing on his right leg. Called Dr. Pleitez's office who told him to come to the ED for further evaluation. Patient denies fall or trauma to the area. Denies any other acute medical complaints. No numbness or tingling in extremities. Denies fever, chills, nausea, vomiting, abdominal pain. No chest pain/pressure, palpitations. Denies orthopnea. No increased lower leg edema. Denies shortness or breath or difficulty breathing. In the ED pt was hypertensive up to 167/64. Labs were significant for stable anemia of 10.5/28.8, potassium 5.7, BUN 83, creatinine 7.70, and magnesium 2.8. Tested negative for COVID, flu, and RSV. Hip and pelvis x-ray showed no acute appearing fracture or dislocation. CT of right femur found nondisplaced longitudinal fracture along medial aspect of proximal femur. Also found collection posterior to greater trochanter proximal femur, possible postsurgical change. Pt was treated with oxycodone, morphine, and ondansetron. Pt will be admitted to the hospital for treatment of right femur fracture that will require surgical revision by Orthopedics. Review of Systems Review of Systems: Right hip pain x5 days, significantly worse this morning Unable to tolerate weight-bearing or ambulation No chest pain/pressure, palpitations Denies orthopnea, LLE No shortness a breath or difficulty breathing Denies fever, chills, nausea, vomiting, abdominal pain PMFSH Medical History Avascular necrosis of bone of right hip Presence of arterial-venous shunt (for dialysis) History of transfusion of packed red blood cells ESRD (end stage renal disease) on dialysis Normally functioning cardiac pacemaker present Essential hypertension Valvular heart disease Chronic heart failure with preserved ejection fraction (HFpEF) Pulmonary hypertension Arthritis Anemia NAVA (dyspnea on exertion) Rhabdomyolysis due to statin therapy Chronic kidney disease Diabetes Atherosclerotic cardiovascular disease Aortic valvular disease Pacemaker CHF (congestive heart failure) HTN (hypertension) Family History Father Stroke Mother Stroke Diabetes Surgical History History of cardiac catheterization (~08/2020) History of tonsillectomy Status cardiac pacemaker S/P excision of lipoma Hx of colonoscopy Social History Household Members: Spouse Housing: House Are you a primary acute care clinical nurse specialist to a significant other at home: No Do you presently have visiting nurse or other home services: Yes (elder services, meals on wheels) Alcohol intake: current Alcohol intake frequency: does not drink Alcohol type: hard liquor Patient Tobacco Use Status: Never used Tobacco Smoked in Last 30 Days: No Use of substances other than those prescribed or required for medical reasons: No Advance Directives: Yes Advance Directives on File: Yes Advance Directives Date on File: 04/26/20 Do you have a plan to hurt others: No Plan service: No Current occupational status: retired Current occupation: rt handed Meds Allergies Allergy/AdvReac Type Severity Reaction Status Date / Time cephalexin [From KEFLEX] Allergy Severe ANGIO EDEMA Verified 12/14/23 12:02 lisinopril [LISINOPRIL] Allergy Severe FACIAL Verified 12/14/23 12:02 EDEMA simvastatin Allergy Severe renal Verified 12/14/23 12:02 insufficiency amlodipine Allergy Mild renal Verified 12/14/23 12:02 insuff in combo w/ statin rx Home Medications ?Medication ?Instructions ?Recorded ?Confirmed ?Last Taken ?Type atorvastatin 10 mg tablet 10 mg PO BEDTIME 01/14/20 12/14/23 12/13/23 History multivitamin 1 tab PO DAILY 01/14/20 12/14/23 12/14/23 08:00 History blood sugar diagnostic #10 ea 04/20/20 11/01/23 Unknown History lancets 33 gauge #100 ea 04/20/20 11/01/23 Unknown History furosemide 40 mg tablet 40 mg PO DAILY 08/04/20 12/14/23 12/14/23 08:00 History carvedilol 6.25 mg tablet 6.25 mg PO BID 11/20/23 12/14/23 12/14/23 08:00 History Physical Exam Vital Signs and Narrative: Vital Signs: Last Vital Signs Temp 98.1 F 12/14/23 16:06 Pulse 75 12/14/23 16:06 Resp 15 12/14/23 16:06 BP 160/60 H 12/14/23 16:06 Pulse Ox 95 12/14/23 16:06 O2 Del Method Room Air 12/14/23 16:06 BMI result Body Mass Index 25.0 General: AOx3, no acute distress Resp: CTA bilaterally CVS: S1, S2, RRR, 2/6 systolic murmur heard at right sternal border GI: +BS, NT, no distention Skin: Warm, dry Neuro: Cranial nerves II-XII grossly intact bilaterally. Motor grossly intact bilaterally Muskuloskeletal: Reduced right hip ROM secondary to pain Extremities: No edema Psych: Appropriate affect Results Labs 12/14/23 13:40 12/14/23 13:40 Labs: Laboratory Results - last 24 hr 12/14/23 13:40 MCV 99.0 H MCH 32.6 MCHC 33.0 RDW 14.4 Plt Count 215 D MPV 9.6 Immature Gran % (Auto) 1.5 H Neut % (Auto) 87.1 H Lymph % (Auto) 4.3 L Miner % (Auto) 5.3 Eos % (Auto) 1.2 Baso % (Auto) 0.6 Lymph # (Auto) 0.4 L Miner # (Auto) 0.4 Eos # (Auto) 0.1 Baso # (Auto) 0.1 Abs Immat Gran (auto) 0.12 H Absolute Neuts (auto) 7.1 Absolute Nucleated RBC 0.000 Nucleated RBC % (auto) 0.0 Anion Gap 18 Estim Creat Clear Calc 6.5 Estimated GFR 7 Random Glucose 107 Calcium 9.3 D Magnesium 2.8 H Total Bilirubin 0.4 AST 17 ALT 18 Alkaline Phosphatase 86 Total Protein 6.3 L Albumin 3.3 L Influenza Type A (PCR) NEGATIVE Influenza Type B (PCR) NEGATIVE RSV RNA Qual (PCR) NEGATIVE SARS-CoV-2 RNA (RT-PCR) NEGATIVE Imaging Radiologist's Impressions: Impressions Hip/Pelvis X-Ray 12/14/23 11:56 IMPRESSION: No acute-appearing fractures or dislocation. Stable appearance of total right hip arthroplasty compared to most recent prior. Recommend correlation with already ordered CT of the right hip/right femur for additional details. Electronically signed by: Florencia Kay MD 12/14/2023 02:[address] 12/14/23 14:31 IMPRESSION: 1. There is a nondisplaced longitudinal fracture along the medial aspect of the proximal femur extending deep to the lesser trochanter and along the more anterior cortex over a length of approximately 5.5 cm. The distal extent of this fracture is at the mid aspect of the femoral stem. 2. There is a collection posterior to the greater trochanter and proximal femur which is partially obscured by metal artifact although measures approximately 6.5 x 3.5 in transverse dimensions and a length of 12 cm. This could represent postsurgical change. 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 Pt will be admitted to the hospital for treatment of right femur fracture that will require surgical revision by Orthopedics. Right hip periprosthetic fracture Right hip pain x4 days, significantly worse this morning; denies fall or trauma CT showed nondisplaced longitudinal fracture of right femur Patient is s/p right CHERYLE on 12/04/2023 Pt NWB on RLE Analgesics for pain management Orthopedics consult Plan is for revision surgery next week Evaluated for CHERYLE by cardiology on 08/28/2023 and determined to be an intermediate cardiac risk as he is medically optimized at this point; should avoid fluid overload RCRI class IV risk No further workup or treatment indicated at this time prior to surgery Electrolyte abnormalities Potassium 5.7, magnesium 2.8, creatinine 7.70 ESRD on HD M/W/F, missed HD today due to pain/hospitalalization Nephrology consult, follows with Dr. Gonzalez Will need inpatient dialysis today Follow BMP Monitor on telemetry CAD Continue statin HTN Continue carvedilol HFrEF Not in acute exacerbation Continue home Lasix DVT prophylaxis Patient previously on enoxaparin 30 mg at home s/p right CHERYLE Hold Lovenox Will treat with heparin Consider discharging patient on heparin DVT prophylaxis with a that enoxaparin due to ESRD Full Code Attending:?Dr. Juares DVT Prophylaxis: Heparin Pt will require a hospitalization of at least two nights for treatment of?right hip periprosthetic fracture requiring surgical revision. He will also need inpatient dialysis due to ESRD. This can not be accomplished in a lesser acute setting. Quality Stroke Does the patient have a stroke diagnosis?: No VTE Prior VTE?: No VTE Risk Level:: Medical - moderate - high VTE Device Contraindication: Treatment Not Indicated VTE Drug Contraindication: N/A - Med Ordered
--- NOTE | 2023-12-14 17:29 | W.PM.DNNEP ---
Subjective Subjective Date of Service: 12/14/23 Principal diagnosis: ESRD This patient was seen during dialysis. Physical Exam Vital Signs: Vital Signs: Last Vital Signs Temp 98.1 F 12/14/23 16:06 Pulse 75 12/14/23 16:06 Resp 15 12/14/23 16:06 BP 160/60 H 12/14/23 16:06 Pulse Ox 95 12/14/23 16:06 O2 Del Method Room Air 12/14/23 16:06 BMI result Body Mass Index 25.0 Assessment & Plan Assessment and plan (1) ESRD (end stage renal disease) on dialysis: Status: Acute (2) Acute hyperkalemia: Status: Acute Plan Patient missed dialysis K: 5.7 PLanned for surgery plan: HD tonight 2 hours K bath per protocol UF 2 liter Heparin free Blood flow 400 Dialysate flow 600 HCo3 34 Dialysis nurse inform Dialysis M-W-F prescribed Time Spent With Patient Time: Total time managing care of this patient today __10__ minutes. Procedures Date of Service Date of Service: 12/14/23
--- NOTE | 2023-12-14 18:05 | PC.NURSE ---
Spoke to chargemaster analyst RE: patient's need for HD today d/t lab values, unsure how late HD RN stays, RN supervisor cellars notified, will coordinate HD.
[2023-12-14] MEDS: Heparin Sodium,Porcine 5,000 UNIT/ML VIAL 5000 UNIT SUBCUT (18:10)
--- NOTE | 2023-12-14 18:53 | PC.NURSE ---
Called dialysis, spoke to owen, patient to go to dialysis on IMC monitor to be monitored during dialysis.
--- NOTE | 2023-12-14 19:22 | PC.NURSE ---
Report placed for patient's admission RN, made aware patient is currently in dialysis, will go directly to room once dialysis complete.
[2023-12-14] MEDS: 0.9 % Sodium Chloride Flush 3 ML SYRINGE IVFLUSH (22:28)
[2023-12-14] MEDS: Docusate Sodium 100 MG CAPSULE PO (22:32)
[2023-12-15] VITALS (8 sets, daily range): BP systolic 113–163; BP diastolic 58–72; PULSE 57–69; RESP 16–20; TEMP 36.1–37.4; O2SAT 96–100
[2023-12-15 06:34] LABS: Hematocrit 28.3 % (42.0-52.0); Hemoglobin 9.3 g/dl (14.0-18.0); Mean Corpuscular HGB Conc 32.9 g/dl (31.0-36.0); Mean Corpuscular Hemoglobin 32.3 pg (27.0-33.0); Mean Corpuscular Volume 98.3 fL (80.0-98.0); Mean Platelet Volume 9.8 fL (9.4-12.4); Platelet Count 213 X10*3/uL (160-400); Red Blood Count 2.88 X10*6/uL (4.60-5.80); Red Cell Distribution Width 14.3 % (11.0-16.0); White Blood Count 6.9 X10*3/uL (4.8-10.8)
[2023-12-15] MEDS: Heparin Sodium,Porcine 5,000 UNIT/ML VIAL 5000 UNIT SUBCUT ×2 (06:41→17:21)
[2023-12-15 07:09] LABS: Alanine Aminotransferase 16 U/L (0-40); Alkaline Phosphatase 79 U/L (39-117); Anion Gap 17 (12-20); Aspartate Amino Transferase 15 U/L (5-37); Bilirubin Total 0.6 mg/dL (0.0-1.0); Blood Urea Nitrogen 48 mg/dL (9-16); Calcium 8.9 mg/dL (8.4-10.2); Carbon Dioxide 26 mmol/L (22-29); Chloride 100 mmol/L (96-108); Creatinine Clr Calc Pharmacy 9.2; Estimated Glomerular Filt Rate 10; Glucose Random 83 mg/dL (60-115); Magnesium 2.6 mg/dL (1.6-2.6); Potassium 4.6 mmol/L (3.3-5.1); Sodium 138 mmol/L (135-145); Total Protein 5.6 g/dL (6.5-8.0)
[2023-12-15 07:52] LABS: Glucose, Whole Blood 84 mg/dL (60-115)
--- NOTE | 2023-12-15 08:19 | MHC.CM.PN ---
CM met with Patient at bedside and addressed IMM with him, providing Patient with the original and a copy has been placed on the chart. Patient lives with his in a 2 family house, with his Brother living on the 2nd floor. Patient may benefit from a PT Eval to assist with disposition; he was active with [employer] [facility] [employer] [employer] and [facility] [place].Patient uses a cane and a walker to assist with mobility. CM has initiated and will follow for dc planning. PCP is Dr. Edwar Trujillo and Patient's Daughter-in Law/Roula is the HCP(Copy requested).
[2023-12-15] MEDS: Docusate Sodium 100 MG CAPSULE PO ×2 (08:54→20:08)
[2023-12-15] MEDS: 0.9 % Sodium Chloride Flush 3 ML SYRINGE IVFLUSH ×2 (08:54→17:23)
--- NOTE | 2023-12-15 13:42 | HO.PM.IMPN ---
Subjective Subjective Date of Service: 12/15/23 Review of Systems Follow up Physical Exam Vital Signs: Vital Signs: Last Vital Signs Temp 97 F 12/15/23 11:39 Pulse 63 12/15/23 11:39 Resp 16 12/15/23 11:39 BP 113/72 12/15/23 11:39 Pulse Ox 96 12/15/23 11:39 O2 Del Method Room Air 12/15/23 11:39 BMI result Body Mass Index 25.5 Appearing in no acute distress lung sounds are clear to auscultation heart regular rate rhythm, clear S1, S2 positive bowel sounds, abdomen is soft, nontender neuro patient is alert x3, no focal deficits Objective Data Active Medications Acetaminophen (Acetaminophen 325 Mg Tablet) 650 mg PO Q6H PRN PRN Reason: Pain, Mild (Pain Scale 1-3), fever or headache Calcium Carbonate (Calcium Carbonate 750 Mg Tab.Chew) 750 mg PO Q4H PRN PRN Reason: Heartburn Docusate Sodium (Docusate Sodium 100 Mg Capsule) 100 mg PO BID [facility] Last Admin: 12/15/23 08:54 Dose: 100 mg Documented By: MEGAN Heparin Sodium (Porcine) (Heparin Sodium,Porcine 5,000 Unit/Ml Vial) 5,000 unit SUBCUT Q12H [facility] Last Admin: 12/15/23 06:41 Dose: 5,000 unit Documented By: ANTON Magnesium Hydroxide (Milk Of Magnesia 30 Ml Oral.Susp) 30 ml PO DAILY PRN PRN Reason: Constipation Melatonin (Melatonin 3 Mg Tablet) 6 mg PO BEDTIME PRN PRN Reason: Insomnia Morphine Sulfate (Morphine Sulfate 2 Mg/Ml Cartridge) 2 mg IVPUSH Q4H PRN; Protocol PRN Reason: Pain, Severe (Pain Scale 7-10) Ondansetron HCl (Ondansetron Hcl 4 Mg/2 Ml Vial) 4 mg IVPUSH Q8H PRN PRN Reason: Nausea and Vomiting Sodium Chloride (0.9 % Sodium Chloride Flush 3 Ml Syringe) 3 ml IVFLUSH QSHIFT [facility] Last Admin: 12/15/23 08:54 Dose: 3 ml Documented By: MEGAN Labs 12/15/23 05:56 12/15/23 05:56 Labs: Laboratory Results - last 24 hr 12/14/23 12/15/23 12/15/23 13:40 05:56 07:18 MCV 99.0 H 98.3 H MCH 32.6 32.3 MCHC 33.0 32.9 RDW 14.4 14.3 Plt Count 215 D 213 MPV 9.6 9.8 Immature Gran % (Auto) 1.5 H Neut % (Auto) 87.1 H Lymph % (Auto) 4.3 L [place] % (Auto) 5.3 Eos % (Auto) 1.2 Baso % (Auto) 0.6 Lymph # (Auto) 0.4 L [place] # (Auto) 0.4 Eos # (Auto) 0.1 Baso # (Auto) 0.1 Abs Immat Gran (auto) 0.12 H Absolute Neuts (auto) 7.1 Absolute Nucleated RBC 0.000 0.000 Nucleated RBC % (auto) 0.0 0.0 Anion Gap 18 17 Estim Creat Clear Calc 6.5 9.2 Estimated GFR 7 10 POC Glucose 84 Random Glucose 107 83 Calcium 9.3 D 8.9 Magnesium 2.8 H 2.6 Total Bilirubin 0.4 0.6 AST 17 15 ALT 18 16 Alkaline Phosphatase 86 79 Total Protein 6.3 L 5.6 L Albumin 3.3 L 3.0 L Influenza Type A (PCR) NEGATIVE Influenza Type B (PCR) NEGATIVE RSV RNA Qual (PCR) NEGATIVE SARS-CoV-2 RNA (RT-PCR) NEGATIVE Assessment and Plan (1) Acute hyperkalemia: Status: Acute Plan Pt is an 83-year-old male with a PMH significant for?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 Pt will be admitted to the hospital for treatment of right femur fracture that will require surgical revision by Orthopedics. Right hip periprosthetic fracture Right hip pain x4 days, significantly worse this morning; denies fall or trauma CT showed nondisplaced longitudinal fracture of right femur Patient is s/p right CHERYLE on 12/04/2023 Pt NWB on RLE Analgesics for pain management Orthopedics consult>Plan is for revision surgery next week Evaluated for CHERYLE by cardiology on 08/28/2023 and determined to be an intermediate cardiac risk as he is medically optimized at this point; should avoid fluid overload RCRI class IV risk Electrolyte abnormalities. Resolved Potassium 5.7, magnesium 2.8 ESRD on HD M/W/F Nephrology consult, follows with Dr. Gonzalez Monitor on telemetry CAD Continue statin HTN Continue carvedilol HFrEF Not in acute exacerbation Continue home Lasix DVT prophylaxis Patient previously on enoxaparin 30 mg at home s/p right CHERYLE Hold Lovenox Will treat with heparin Full Code Attending:?Dr. Mi DVT Prophylaxis: Heparin Quality Stroke Does the patient have a stroke diagnosis?: No VTE Prior VTE?: No VTE Risk Level:: Medical - moderate - high VTE Device Contraindication: Treatment Not Indicated VTE Drug Contraindication: N/A - Med Ordered
[2023-12-15] MEDS: Morphine Sulfate 2 MG/ML CARTRIDGE IVPUSH ×2 (14:07→20:04)
[2023-12-16 04:00] VITALS: BP 131/70; PULSE 63; RESP 20; TEMP 36.8; O2SAT 98
[2023-12-16] MEDS: Heparin Sodium,Porcine 5,000 UNIT/ML VIAL 5000 UNIT SUBCUT ×2 (04:14→18:10)
[2023-12-16 07:17] LABS: Alanine Aminotransferase 14 U/L (0-40); Albumin Level 2.7 g/dL (3.5-5.0); Alkaline Phosphatase 74 U/L (39-117); Anion Gap 17 (12-20); Aspartate Amino Transferase 14 U/L (5-37); Bilirubin Total 0.4 mg/dL (0.0-1.0); Blood Urea Nitrogen 66 mg/dL (9-16); Calcium 8.6 mg/dL (8.4-10.2); Carbon Dioxide 24 mmol/L (22-29); Chloride 100 mmol/L (96-108); Creatinine Clr Calc Pharmacy 6.8; Estimated Glomerular Filt Rate 7; Glucose Random 98 mg/dL (60-115); Magnesium 2.7 mg/dL (1.6-2.6); Potassium 5.2 mmol/L (3.3-5.1); Sodium 136 mmol/L (135-145); Total Protein 5.4 g/dL (6.5-8.0)
[2023-12-16 08:00] VITALS: BP 165/63; PULSE 64; RESP 20; TEMP 36.1; O2SAT 98
[2023-12-16] MEDS: Docusate Sodium 100 MG CAPSULE PO ×2 (09:00→19:59)
[2023-12-16] MEDS: 0.9 % Sodium Chloride Flush 3 ML SYRINGE IVFLUSH ×3 (09:01→20:00)
[2023-12-16] MEDS: Milk of Magnesia 30 ML ORAL.SUSP PO (09:05)
--- NOTE | 2023-12-16 11:08 | HO.PM.IMPN ---
Subjective Subjective Date of Service: 12/16/23 Review of Systems Follow up Leg fracture Doing well, pain with movement Physical Exam Vital Signs: Vital Signs: Last Vital Signs Temp 96.9 F 12/16/23 08:00 Pulse 64 12/16/23 08:00 Resp 20 12/16/23 08:00 BP 165/63 H 12/16/23 08:00 Pulse Ox 98 12/16/23 08:00 O2 Del Method Room Air 12/16/23 08:00 BMI result Body Mass Index 25.5 Appearing in no acute distress lung sounds are clear to auscultation heart regular rate rhythm, clear S1, S2 positive bowel sounds, abdomen is soft, nontender neuro patient is alert x3, no focal deficits Objective Data Active Medications Acetaminophen (Acetaminophen 325 Mg Tablet) 650 mg PO Q6H PRN PRN Reason: Pain, Mild (Pain Scale 1-3), fever or headache Calcium Carbonate (Calcium Carbonate 750 Mg Tab.Chew) 750 mg PO Q4H PRN PRN Reason: Heartburn Docusate Sodium (Docusate Sodium 100 Mg Capsule) 100 mg PO BID [facility] Last Admin: 12/16/23 09:00 Dose: 100 mg Documented By: MEGAN Heparin Sodium (Porcine) (Heparin Sodium,Porcine 5,000 Unit/Ml Vial) 5,000 unit SUBCUT Q12H [facility] Last Admin: 12/16/23 04:14 Dose: 5,000 unit Documented By: ANTON Magnesium Hydroxide (Milk Of Magnesia 30 Ml Oral.Susp) 30 ml PO DAILY PRN PRN Reason: Constipation Last Admin: 12/16/23 09:05 Dose: 30 ml Documented By: MEGAN Melatonin (Melatonin 3 Mg Tablet) 6 mg PO BEDTIME PRN PRN Reason: Insomnia Morphine Sulfate (Morphine Sulfate 2 Mg/Ml Cartridge) 2 mg IVPUSH Q4H PRN; Protocol PRN Reason: Pain, Severe (Pain Scale 7-10) Last Admin: 12/15/23 20:04 Dose: 2 mg Documented By: ANTON Ondansetron HCl (Ondansetron Hcl 4 Mg/2 Ml Vial) 4 mg IVPUSH Q8H PRN PRN Reason: Nausea and Vomiting Sodium Chloride (0.9 % Sodium Chloride Flush 3 Ml Syringe) 3 ml IVFLUSH QSHIFT [facility] Last Admin: 12/16/23 09:01 Dose: 3 ml Documented By: MEGAN Labs 12/15/23 05:56 12/16/23 06:16 Labs: Laboratory Results - last 24 hr 12/16/23 06:16 Hold Purple Top SEE NOTE Anion Gap 17 Estim Creat Clear Calc 6.8 Estimated GFR 7 Random Glucose 98 Calcium 8.6 Magnesium 2.7 H Total Bilirubin 0.4 AST 14 ALT 14 Alkaline Phosphatase 74 Total Protein 5.4 L Albumin 2.7 L Assessment and Plan (1) Acute hyperkalemia: Status: Acute Plan Pt is an 83-year-old male with a PMH significant for?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 Pt will be admitted to the hospital for treatment of right femur fracture that will require surgical revision by Orthopedics. Right hip periprosthetic fracture Right hip pain x4 days, significantly worse this morning; denies fall or trauma CT showed nondisplaced longitudinal fracture of right femur Patient is s/p right CHERYLE on 12/04/2023 Pt NWB on RLE Analgesics for pain management Orthopedics consult>Plan is for revision surgery next week Evaluated for CHERYLE by cardiology on 08/28/2023 and determined to be an intermediate cardiac risk as he is medically optimized at this point; should avoid fluid overload RCRI class IV risk Electrolyte abnormalities. Resolved Potassium 5.7, magnesium 2.8 ESRD on HD M/W/F Nephrology consult, follows with Dr. Gonzalez Monitor on telemetry CAD Continue statin HTN Continue carvedilol HFrEF Not in acute exacerbation Continue home Lasix DVT prophylaxis Patient previously on enoxaparin 30 mg at home s/p right CHERYLE Hold Lovenox Will treat with heparin Full Code Attending:?Dr. Mi DVT Prophylaxis: Heparin Quality Stroke Does the patient have a stroke diagnosis?: No VTE Prior VTE?: No VTE Risk Level:: Medical - moderate - high VTE Device Contraindication: Treatment Not Indicated VTE Drug Contraindication: N/A - Med Ordered
[2023-12-16 11:41] VITALS: BP 168/72; PULSE 62; RESP 16; TEMP 36.3; O2SAT 99
[2023-12-16] MEDS: Morphine Sulfate 2 MG/ML CARTRIDGE IVPUSH ×2 (12:58→18:10)
--- NOTE | 2023-12-16 13:34 | PM.PNORT ---
Subjective Subjective Date of Service: 12/16/23 Principal diagnosis: ESRD Interval history: LOS 2 Rt hip periprosthetic fx resting in bed, able to sit up denies cp, palpitations, sob Physical Exam Vital Signs: Vital Signs: Last Vital Signs Temp 97.4 F 12/16/23 11:41 Pulse 62 12/16/23 11:41 Resp 16 12/16/23 11:41 BP 168/72 H 12/16/23 11:41 Pulse Ox 99 12/16/23 11:41 O2 Del Method Room Air 12/16/23 11:41 BMI result Body Mass Index 25.5 Extrem: Other: Right hip bandage clean dry and intact pain with movement of the right hip he can plantar flex and dorsiflex the foot and ankle NVI Procedures Date of Service Date of Service: 12/16/23 Progress Note: A&P Assessment and plan (1) Femur fracture: Status: Acute (2) Status post total hip replacement, right: Status: Acute Plan NWB RLE continue pain control OR this week-date pending Time Spent With Patient Time: Total time managing care of this patient today ____ minutes. Quality Stroke Does the patient have a stroke diagnosis?: No VTE Prior VTE?: No VTE Risk Level:: Medical - moderate - high VTE Device Contraindication: Treatment Not Indicated VTE Drug Contraindication: N/A - Med Ordered
[2023-12-16 16:00] VITALS: BP 149/66; PULSE 68; RESP 16; TEMP 36.4; O2SAT 97
[2023-12-16 20:00] VITALS: BP 161/67; PULSE 72; RESP 18; TEMP 36.6; O2SAT 91
[2023-12-16 23:53] VITALS: BP 145/65; PULSE 72; RESP 18; TEMP 36.6; O2SAT 95
[2023-12-17 04:00] VITALS: BP 158/68; PULSE 65; RESP 18; TEMP 36.6; O2SAT 96
[2023-12-17] MEDS: Heparin Sodium,Porcine 5,000 UNIT/ML VIAL 5000 UNIT SUBCUT ×2 (06:02→19:02)
[2023-12-17] MEDS: 0.9 % Sodium Chloride Flush 3 ML SYRINGE IVFLUSH ×3 (07:22→20:14)
[2023-12-17 07:32] LABS: Alanine Aminotransferase 18 U/L (0-40); Albumin Level 3.1 g/dL (3.5-5.0); Alkaline Phosphatase 88 U/L (39-117); Anion Gap 15 (12-20); Aspartate Amino Transferase 19 U/L (5-37); Bilirubin Total 0.4 mg/dL (0.0-1.0); Blood Urea Nitrogen 47 mg/dL (9-16); Calcium 8.5 mg/dL (8.4-10.2); Carbon Dioxide 25 mmol/L (22-29); Chloride 99 mmol/L (96-108); Creatinine Clr Calc Pharmacy 9.7; Estimated Glomerular Filt Rate 11; Glucose Random 104 mg/dL (60-115); Magnesium 2.7 mg/dL (1.6-2.6); Potassium 4.4 mmol/L (3.3-5.1); Sodium 135 mmol/L (135-145); Total Protein 5.9 g/dL (6.5-8.0)
[2023-12-17] MEDS: Docusate Sodium 100 MG CAPSULE PO ×2 (08:02→20:09)
--- NOTE | 2023-12-17 08:18 | P.PNIM_ITS ---
Subjective Subjective Date of Service: 12/17/23 Review of Systems Follow up Leg fracture Doing well, pain with movement Physical Exam 2 Vital Signs: Vital Signs: Last Vital Signs Temp 97.8 F 12/17/23 04:00 Pulse 65 12/17/23 04:00 Resp 18 12/17/23 04:00 BP 158/68 H 12/17/23 04:00 Pulse Ox 96 12/17/23 04:00 O2 Del Method Room Air 12/17/23 04:00 BMI result Body Mass Index 25.5 Appearing in no acute distress lung sounds are clear to auscultation heart regular rate rhythm, clear S1, S2 positive bowel sounds, abdomen is soft, nontender neuro patient is alert x3, no focal deficits Objective Data Active Medications Acetaminophen (Acetaminophen 325 Mg Tablet) 650 mg PO Q6H PRN PRN Reason: Pain, Mild (Pain Scale 1-3), fever or headache Calcium Carbonate (Calcium Carbonate 750 Mg Tab.Chew) 750 mg PO Q4H PRN PRN Reason: Heartburn Docusate Sodium (Docusate Sodium 100 Mg Capsule) 100 mg PO BID [facility] Last Admin: 12/17/23 08:02 Dose: 100 mg Documented By: JHONNY Heparin Sodium (Porcine) (Heparin Sodium,Porcine 5,000 Unit/Ml Vial) 5,000 unit SUBCUT Q12H [facility] Last Admin: 12/17/23 06:02 Dose: 5,000 unit Documented By: SULY Magnesium Hydroxide (Milk Of Magnesia 30 Ml Oral.Susp) 30 ml PO DAILY PRN PRN Reason: Constipation Last Admin: 12/16/23 09:05 Dose: 30 ml Documented By: MEGAN Melatonin (Melatonin 3 Mg Tablet) 6 mg PO BEDTIME PRN PRN Reason: Insomnia Morphine Sulfate (Morphine Sulfate 2 Mg/Ml Cartridge) 2 mg IVPUSH Q4H PRN; Protocol PRN Reason: Pain, Severe (Pain Scale 7-10) Last Admin: 12/16/23 18:10 Dose: 2 mg Documented By: MEGAN Ondansetron HCl (Ondansetron Hcl 4 Mg/2 Ml Vial) 4 mg IVPUSH Q8H PRN PRN Reason: Nausea and Vomiting Sodium Biphosphate/Sodium Phosphate (Sodium Phosphate,[place]-Dibasic 133 Ml Enema) 133 ml HI ONCE PRN PRN Reason: Constipation Sodium Chloride (0.9 % Sodium Chloride Flush 3 Ml Syringe) 3 ml IVFLUSH QSHIFT [facility] Last Admin: 12/17/23 07:22 Dose: 3 ml Documented By: JHONNY Labs 12/15/23 05:56 12/17/23 06:56 Labs: Laboratory Results - last 24 hr 12/17/23 06:56 Anion Gap 15 Estim Creat Clear Calc 9.7 Estimated GFR 11 Random Glucose 104 Calcium 8.5 Magnesium 2.7 H Total Bilirubin 0.4 AST 19 ALT 18 Alkaline Phosphatase 88 Total Protein 5.9 L Albumin 3.1 L Assessment and Plan (1) Acute hyperkalemia: Status: Acute Plan Pt is an 83-year-old male with a PMH significant for?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 Pt will be admitted to the hospital for treatment of right femur fracture that will require surgical revision by Orthopedics. Right hip periprosthetic fracture CT showed nondisplaced longitudinal fracture of right femur Patient is s/p right CHERYLE on 12/04/2023 Pt NWB on RLE Analgesics for pain management Orthopedics consult>Plan is for revision surgery NPO after midnight Electrolyte abnormalities. Resolved Potassium 5.7, magnesium 2.8 ESRD on HD M/W/F Nephrology consult, follows with Dr. Gonzalez Monitor on telemetry CAD Continue statin HTN Continue carvedilol HFrEF Not in acute exacerbation Continue home Lasix Full Code Attending:?Dr. Mi DVT Prophylaxis: Heparin Quality Stroke Does the patient have a stroke diagnosis?: No VTE Prior VTE?: No VTE Risk Level:: Medical - moderate - high VTE Device Contraindication: Treatment Not Indicated VTE Drug Contraindication: N/A - Med Ordered
--- NOTE | 2023-12-17 08:48 | PM.PNORT ---
Subjective Subjective Date of Service: 12/17/23 Principal diagnosis: right hip pain Interval history: Mr. Levy is seen resting comfortably in bed this morning during hemodialysis. He complains of mild discomfort in his right hip while at rest. He has been nonweightbearing on his right lower extremity. Physical Exam Vital Signs: Vital Signs: Last Vital Signs Temp 97.8 F 12/17/23 04:00 Pulse 65 12/17/23 04:00 Resp 18 12/17/23 04:00 BP 158/68 H 12/17/23 04:00 Pulse Ox 96 12/17/23 04:00 O2 Del Method Room Air 12/17/23 04:00 BMI result Body Mass Index 25.5 Extrem: Other: Right lower extremity examination shows that his thigh compartments are soft, good capillary refill, normal sensation to light touch Procedures Date of Service Date of Service: 12/17/23 Progress Note: A&P Assessment and plan (1) Femur fracture: Status: Acute Assessment and Plan: Mr. Levy is an 83-year-old male who presents with right hip pain due to a periprosthetic fracture. Continue medical management for now. Possible revision right hip surgery by Dr. Pleitez this week. The patient is stable at present. Time Spent With Patient Time: Total time managing care of this patient today 10 minutes. Quality Stroke Does the patient have a stroke diagnosis?: No VTE Prior VTE?: No VTE Risk Level:: Medical - moderate - high VTE Device Contraindication: Treatment Not Indicated VTE Drug Contraindication: N/A - Med Ordered
[2023-12-17 10:25] VITALS: BP 179/77; PULSE 74
[2023-12-17] MEDS: Furosemide 40 MG TABLET PO (10:25)
[2023-12-17] MEDS: Multivitamin TABLET 1 TAB PO (10:25)
[2023-12-17] MEDS: carvediloL 6.25 MG TABLET PO ×2 (10:25→20:09)
[2023-12-17 12:00] VITALS: BP 138/57; PULSE 68; RESP 20; TEMP 36.1; O2SAT 99
[2023-12-17] MEDS: Sodium Phosphate,Mono-Dibasic 133 ML ENEMA PR (14:22)
--- NOTE | 2023-12-17 15:21 | PM.EVENT ---
Event Note Date of Service: 12/17/23 Event Note: NPo after midnight for revision RT CHERYLE 12/18/23 Time Spent With Patient Time: Total time managing care of this patient today ____ minutes.
[2023-12-17 15:35] VITALS: BP 179/76; PULSE 69; RESP 16; TEMP 36.4; O2SAT 97
[2023-12-17 19:54] VITALS: BP 131/61; PULSE 69; RESP 18; TEMP 36.8; O2SAT 97
--- NOTE | 2023-12-17 22:41 | P.PNNP_ITS ---
Subjective Subjective Date of Service: 12/17/23 Principal diagnosis: right hip pain Interval history: pt seen and examined Physical Exam 2 Vital Signs: Vital Signs: Last Vital Signs Temp 98.2 F 12/17/23 19:54 Pulse 69 12/17/23 19:54 Resp 18 12/17/23 19:54 BP 131/61 12/17/23 19:54 Pulse Ox 97 12/17/23 19:54 O2 Del Method Room Air 12/17/23 19:54 BMI result Body Mass Index 25.5 cvs: s1s2 RS; cta ABd; soft Objective Data Labs 12/15/23 05:56 12/17/23 06:56 Labs: Laboratory Results - last 24 hr 12/17/23 06:56 Sodium 135 Potassium 4.4 Chloride 99 Carbon Dioxide 25 Anion Gap 15 BUN 47 H Creatinine 5.18 H* Estim Creat Clear Calc 9.7 Estimated GFR 11 Random Glucose 104 Calcium 8.5 Magnesium 2.7 H Total Bilirubin 0.4 AST 19 ALT 18 Alkaline Phosphatase 88 Total Protein 5.9 L Albumin 3.1 L Procedures Date of Service Date of Service: 12/17/23 Assessment & Plan Assessment and plan (1) ESRD (end stage renal disease) on dialysis: Status: Acute Plan Patient missed dialysis PLanned for surgery plan: HD MWF K bath per protocol UF 2 liter Heparin free Blood flow 400 Dialysate flow 600 HCo3 34 Dialysis -- prescribed Time Spent With Patient Time: Total time managing care of this patient today ____ minutes. Progress Note: Quality Stroke Does the patient have a stroke diagnosis?: No
[2023-12-18] VITALS (18 sets, daily range): BP systolic 97–164; BP diastolic 25–69; PULSE 62–74; RESP 15–21; TEMP 36.6–37; O2SAT 93–100
[2023-12-18] MEDS: Heparin Sodium,Porcine 5,000 UNIT/ML VIAL 5000 UNIT SUBCUT (05:20)
[2023-12-18 07:14] LABS: Alanine Aminotransferase 20 U/L (0-40); Albumin Level 2.9 g/dL (3.5-5.0); Alkaline Phosphatase 86 U/L (39-117); Anion Gap 16 (12-20); Aspartate Amino Transferase 19 U/L (5-37); Bilirubin Total 0.5 mg/dL (0.0-1.0); Blood Urea Nitrogen 52 mg/dL (9-16); Calcium 8.5 mg/dL (8.4-10.2); Carbon Dioxide 24 mmol/L (22-29); Chloride 100 mmol/L (96-108); Creatinine Clr Calc Pharmacy 8.7; Estimated Glomerular Filt Rate 9; Glucose Random 110 mg/dL (60-115); Magnesium 2.7 mg/dL (1.6-2.6); Potassium 5.1 mmol/L (3.3-5.1); Sodium 135 mmol/L (135-145); Total Protein 5.7 g/dL (6.5-8.0)
--- NOTE | 2023-12-18 09:31 | HO.PM.IMPN ---
Subjective Subjective Date of Service: 12/18/23 Review of Systems Follow up Leg fracture Doing well, pain with movement Physical Exam Vital Signs: Vital Signs: Last Vital Signs Temp 97.9 F 12/18/23 07:01 Pulse 74 12/18/23 07:01 Resp 18 12/18/23 07:01 BP 142/64 H 12/18/23 07:01 Pulse Ox 99 12/18/23 07:01 O2 Del Method Room Air 12/18/23 07:01 BMI result Body Mass Index 25.5 Appearing in no acute distress lung sounds are clear to auscultation heart regular rate rhythm, clear S1, S2 positive bowel sounds, abdomen is soft, nontender neuro patient is alert x3, no focal deficits Objective Data Active Medications Acetaminophen (Acetaminophen 325 Mg Tablet) 650 mg PO Q6H PRN PRN Reason: Pain, Mild (Pain Scale 1-3), fever or headache Calcium Carbonate (Calcium Carbonate 750 Mg Tab.Chew) 750 mg PO Q4H PRN PRN Reason: Heartburn Carvedilol (Carvedilol 6.25 Mg Tablet) 6.25 mg PO BID [facility]; Protocol Last Admin: 12/17/23 20:09 Dose: 6.25 mg Documented By: SULY Docusate Sodium (Docusate Sodium 100 Mg Capsule) 100 mg PO BID [facility] Last Admin: 12/17/23 20:09 Dose: 100 mg Documented By: SULY Furosemide (Furosemide 40 Mg Tablet) 40 mg PO DAILY [facility]; Protocol Last Admin: 12/17/23 10:25 Dose: 40 mg Documented By: JHONNY Heparin Sodium (Porcine) (Heparin Sodium,Porcine 5,000 Unit/Ml Vial) 5,000 unit SUBCUT Q12H [facility] Last Admin: 12/18/23 05:20 Dose: 5,000 unit Documented By: SULY Magnesium Hydroxide (Milk Of Magnesia 30 Ml Oral.Susp) 30 ml PO DAILY PRN PRN Reason: Constipation Last Admin: 12/16/23 09:05 Dose: 30 ml Documented By: MEGAN Melatonin (Melatonin 3 Mg Tablet) 6 mg PO BEDTIME PRN PRN Reason: Insomnia Morphine Sulfate (Morphine Sulfate 2 Mg/Ml Cartridge) 2 mg IVPUSH Q4H PRN; Protocol PRN Reason: Pain, Severe (Pain Scale 7-10) Last Admin: 12/16/23 18:10 Dose: 2 mg Documented By: MEGAN Multivitamins/Vitamin C (Multivitamin Tablet) 1 tab PO DAILY [facility] Last Admin: 12/17/23 10:25 Dose: 1 tab Documented By: JHONNY Ondansetron HCl (Ondansetron Hcl 4 Mg/2 Ml Vial) 4 mg IVPUSH Q8H PRN PRN Reason: Nausea and Vomiting Sodium Biphosphate/Sodium Phosphate (Sodium Phosphate,[place]-Dibasic 133 Ml Enema) 133 ml ME ONCE PRN PRN Reason: Constipation Last Admin: 12/17/23 14:22 Dose: 133 ml Documented By: JHONNY Sodium Chloride (0.9 % Sodium Chloride Flush 3 Ml Syringe) 3 ml IVFLUSH QSHIFT [facility] Last Admin: 12/17/23 20:14 Dose: 3 ml Documented By: SULY Labs 12/15/23 05:56 12/18/23 06:10 Labs: Laboratory Results - last 24 hr 12/18/23 06:10 Hold Purple Top SEE NOTE Anion Gap 16 Estim Creat Clear Calc 8.7 Estimated GFR 9 Random Glucose 110 Calcium 8.5 Magnesium 2.7 H Total Bilirubin 0.5 AST 19 ALT 20 Alkaline Phosphatase 86 Total Protein 5.7 L Albumin 2.9 L Assessment and Plan (1) Acute hyperkalemia: Status: Acute Plan Pt is an 83-year-old male with a PMH significant for?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 Pt will be admitted to the hospital for treatment of right femur fracture that will require surgical revision by Orthopedics. Right hip periprosthetic fracture CT showed nondisplaced longitudinal fracture of right femur Patient is s/p right CHERYLE on 12/04/2023 Pt NWB on RLE Analgesics for pain management Orthopedics consult>Plan is for revision surgery today Electrolyte abnormalities. Resolved Potassium 5.7, magnesium 2.8 ESRD on HD M/W/F Nephrology consult, follows with Dr. Babu Monitor on telemetry CAD Continue statin HTN Continue carvedilol HFrEF Not in acute exacerbation Continue home Lasix Full Code Attending:?Dr. Cross DVT Prophylaxis: Heparin Quality Stroke Does the patient have a stroke diagnosis?: No VTE Prior VTE?: No VTE Risk Level:: Medical - moderate - high VTE Device Contraindication: Treatment Not Indicated VTE Drug Contraindication: N/A - Med Ordered
--- NOTE | 2023-12-18 09:54 | MHC.CM.PN ---
Per COPY MACHINE OPERATOR/ Fifi,Patient is having Hip Surgery Revision today; CM will follow.
[2023-12-18] MEDS: Multivitamin TABLET 1 TAB PO (10:14)
[2023-12-18] MEDS: Docusate Sodium 100 MG CAPSULE PO ×2 (10:14→22:38)
[2023-12-18] MEDS: Furosemide 40 MG TABLET PO (10:14)
[2023-12-18] MEDS: carvediloL 6.25 MG TABLET PO ×2 (10:14→22:38)
[2023-12-18] MEDS: 0.9 % Sodium Chloride Flush 3 ML SYRINGE IVFLUSH (10:23)
--- NOTE | 2023-12-18 11:26 | MHC.CM.PN ---
Per Nephrology, Patient attends [facility] HD, when home.
--- NOTE | 2023-12-18 14:10 | PC.NURSE ---
New order for type and screen per Dr. Arguelles. Call placed to blood bank, per Sherley, if blood is needed in the OR, it is currently on hand and will be available. Dr. Arguelles made aware.
--- NOTE | 2023-12-18 14:32 | MHC.SHP ---
Pre-Procedural Eval Section A - 24 Hr Update-Section A only Date of Service: 12/18/23 The patient is an INPATIENT: Yes Changes since office visit: No Cold of Flu in the past 2 weeks, No New Medical Problems, No Changes in Medication and No Patient answered all questions The patient has been examined within 24 hours of the surgical procedure. The History & Physical has been completed within 30 days and I have reviewed it.: Yes Section B - Complete if H&P > 30 days Chief Complaint: Right hip fracture, missed dialysis Allergies: Allergies Allergy/AdvReac Type Severity Reaction Status Date / Time cephalexin [From KEFLEX] Allergy Severe ANGIO EDEMA Verified 12/14/23 12:02 lisinopril [LISINOPRIL] Allergy Severe FACIAL Verified 12/14/23 12:02 EDEMA simvastatin Allergy Severe renal Verified 12/14/23 12:02 insufficiency amlodipine Allergy Mild renal Verified 12/14/23 12:02 insuff in combo w/ statin rx Plan I have reviewed the history and physical and performed a pertinent physical examination on my patient. No changes have occurred unless specified. Time Spent With Patient Time: Total time managing care of this patient today ____ minutes.
[2023-12-18] MEDS: 0.9 % Sodium Chloride 1,000 ML 50 ML IVCONT (14:47)
--- NOTE | 2023-12-18 14:49 | HO.ANESPROP2 ---
HPI - Anesthesia Eval Consult details Narrative: 83 yo M presenting for right hip revision. Had a right CHERYLE on 12/04/23. Pacemaker. ESRD on MWF - received HD yesterday. [facility] Active Problems Active Problems: All Active Problems Acute hyperkalemia (Acute) CKD (chronic kidney disease) (Acute) Femur fracture (Acute) Anemia (Acute) Status post total hip replacement, right (Acute) Preop cardiovascular exam (Acute) Heart block (Acute) Cardiomyopathy (Acute) Hip flexor tendonitis (Acute) CKD (chronic kidney disease) stage 4, GFR 15-29 ml/min (Acute) Aortic valvular disease (Acute) Pulmonary hypertension (Acute) ESRD (end stage renal disease) on dialysis (Acute) Chronic kidney disease (Acute) Other and unspecified hyperlipidemia (Acute) Normally functioning cardiac pacemaker present (Acute) Essential hypertension (Acute) Valvular heart disease (Acute) Atherosclerotic cardiovascular disease (Acute) Chronic heart failure with preserved ejection fraction (HFpEF) (Acute) Past Medical History Medical History Avascular necrosis of bone of right hip Presence of arterial-venous shunt (for dialysis) History of transfusion of packed red blood cells ESRD (end stage renal disease) on dialysis Normally functioning cardiac pacemaker present Essential hypertension Valvular heart disease Chronic heart failure with preserved ejection fraction (HFpEF) Pulmonary hypertension Arthritis Anemia NAVA (dyspnea on exertion) Rhabdomyolysis due to statin therapy Chronic kidney disease Diabetes Atherosclerotic cardiovascular disease Aortic valvular disease Pacemaker CHF (congestive heart failure) HTN (hypertension) Family History Family History Father Stroke Mother Stroke Diabetes Family history of problems with anesthesia: No Surgical History Surgical History History of cardiac catheterization (~08/2020) History of tonsillectomy Status cardiac pacemaker S/P excision of lipoma Hx of colonoscopy History of Problems with Anesthesia: No Social History Social History Household Members: Spouse Housing: Apartment Are you a primary child care group leader to a significant other at home: No Do you presently have visiting nurse or other home services: Yes (elder services, meals on wheels) Alcohol intake: current Alcohol intake frequency: does not drink Alcohol type: hard liquor Patient Tobacco Use Status: Never used Tobacco Smoked in Last 30 Days: No Use of substances other than those prescribed or required for medical reasons: No Currently Displaying Signs/Symptoms of Drug Intoxication Withdrawal: No Have you been hit, kicked, punched, or otherwise hurt by someone within the past year? If so, by whom?: No Do you feel safe in your current relationship?: Yes Is there a partner from a previous relationship who is making you feel unsafe now?: No Are you made to feel afraid or neglected: No Pent[employer]ism Healthcare Practices: Yazidism Are you DNR?: No Advance Directives: Yes Advance Directives on File: Yes Advance Directives Date on File: 04/26/20 Do you have a plan to hurt others: No Plan Recently lost weight without trying: No Eating poorly because of decreased appetite: No Nutrition Risks: No Nutritional Risk Poor oral hygiene: No service: Yes Current occupational status: retired Current occupation: rt handed Meds Allergies Allergy/AdvReac Type Severity Reaction Status Date / Time cephalexin [From KEFLEX] Allergy Severe ANGIO EDEMA Verified 12/14/23 12:02 lisinopril [LISINOPRIL] Allergy Severe FACIAL Verified 12/14/23 12:02 EDEMA simvastatin Allergy Severe renal Verified 12/14/23 12:02 insufficiency amlodipine Allergy Mild renal Verified 12/14/23 12:02 insuff in combo w/ statin rx Active Medications: Current Medications Acetaminophen (Acetaminophen 325 Mg Tablet) 650 mg PO Q6H PRN PRN Reason: Pain, Mild (Pain Scale 1-3), fever or headache Calcium Carbonate (Calcium Carbonate 750 Mg Tab.Chew) 750 mg PO Q4H PRN PRN Reason: Heartburn Carvedilol (Carvedilol 6.25 Mg Tablet) 6.25 mg PO BID [facility]; Protocol Last Admin: 12/18/23 10:14 Dose: 6.25 mg Docusate Sodium (Docusate Sodium 100 Mg Capsule) 100 mg PO BID [facility] Last Admin: 12/18/23 10:14 Dose: 100 mg Furosemide (Furosemide 40 Mg Tablet) 40 mg PO DAILY [facility]; Protocol Last Admin: 12/18/23 10:14 Dose: 40 mg Heparin Sodium (Porcine) (Heparin Sodium,Porcine 5,000 Unit/Ml Vial) 5,000 unit SUBCUT Q12H [facility] Last Admin: 12/18/23 05:20 Dose: 5,000 unit Cefazolin Sodium/Dextrose (Ancef) 2 gm in 50 mls @ 100 mls/hr IV PREOP ONE Stop: 12/18/23 14:41 Sodium Chloride (Ns) 1,000 mls @ 50 mls/hr IVCONT .Q20H [facility] Last Admin: 12/18/23 14:47 Dose: 50 mls/hr Magnesium Hydroxide (Milk Of Magnesia 30 Ml Oral.Susp) 30 ml PO DAILY PRN PRN Reason: Constipation Last Admin: 12/16/23 09:05 Dose: 30 ml Melatonin (Melatonin 3 Mg Tablet) 6 mg PO BEDTIME PRN PRN Reason: Insomnia Morphine Sulfate (Morphine Sulfate 2 Mg/Ml Cartridge) 2 mg IVPUSH Q4H PRN; Protocol PRN Reason: Pain, Severe (Pain Scale 7-10) Last Admin: 12/16/23 18:10 Dose: 2 mg Multivitamins/Vitamin C (Multivitamin Tablet) 1 tab PO DAILY [facility] Last Admin: 12/18/23 10:14 Dose: 1 tab Ondansetron HCl (Ondansetron Hcl 4 Mg/2 Ml Vial) 4 mg IVPUSH Q8H PRN PRN Reason: Nausea and Vomiting Sodium Biphosphate/Sodium Phosphate (Sodium Phosphate,[place]-Dibasic 133 Ml Enema) 133 ml MT ONCE PRN PRN Reason: Constipation Last Admin: 12/17/23 14:22 Dose: 133 ml Sodium Chloride (0.9 % Sodium Chloride Flush 3 Ml Syringe) [facility] Last Admin: 12/18/23 10:23 Dose: 3 ml Home Medications ?Medication ?Instructions ?Recorded ?Confirmed ?Last Taken ?Type atorvastatin 10 mg tablet 10 mg PO BEDTIME 01/14/20 12/14/23 12/13/23 History multivitamin 1 tab PO DAILY 01/14/20 12/14/23 12/14/23 08:00 History blood sugar diagnostic #10 ea 04/20/20 11/01/23 Unknown History lancets 33 gauge #100 ea 04/20/20 11/01/23 Unknown History furosemide 40 mg tablet 40 mg PO DAILY 08/04/20 12/14/23 12/14/23 08:00 History carvedilol 6.25 mg tablet 6.25 mg PO BID 11/20/23 12/14/23 12/14/23 08:00 History Exam Exam Date and Time: 12/18/23 1445 Height,Weight and Vital Signs: Height 5 ft 5 in Weight 69.5 kg Last Vital Signs Temp 98.1 F 12/18/23 14:32 Pulse 62 12/18/23 14:32 Resp 16 12/18/23 14:32 BP 114/59 L 12/18/23 14:32 Pulse Ox 100 12/18/23 14:32 O2 Del Method Room Air 12/18/23 14:32 Pertinent Lab Results Pertinent Lab Results: Laboratory Tests 12/14/23 12/15/23 12/15/23 13:40 05:56 07:18 WBC 8.2 6.9 RBC 2.91 L D 2.88 L Hgb 9.5 L D 9.3 L Hct 28.8 L D 28.3 L MCV 99.0 H 98.3 H MCH 32.6 32.3 MCHC 33.0 32.9 RDW 14.4 14.3 Plt Count 215 D 213 MPV 9.6 9.8 Immature Gran % (Auto) 1.5 H Neut % (Auto) 87.1 H Lymph % (Auto) 4.3 L [place] % (Auto) 5.3 Eos % (Auto) 1.2 Baso % (Auto) 0.6 Lymph # (Auto) 0.4 L [place] # (Auto) 0.4 Eos # (Auto) 0.1 Baso # (Auto) 0.1 Abs Immat Gran (auto) 0.12 H Absolute Neuts (auto) 7.1 Absolute Nucleated RBC 0.000 0.000 Nucleated RBC % (auto) 0.0 0.0 Hold Purple Top Sodium 136 138 Potassium 5.7 H 4.6 Chloride 96 100 Carbon Dioxide 28 26 Anion Gap 18 17 BUN 83 H 48 H Creatinine 7.70 H* 5.47 H* Estim Creat Clear Calc 6.5 9.2 Estimated GFR 7 10 POC Glucose 84 Random Glucose 107 83 Calcium 9.3 D 8.9 Magnesium 2.8 H 2.6 Total Bilirubin 0.4 0.6 AST 17 15 ALT 18 16 Alkaline Phosphatase 86 79 Total Protein 6.3 L 5.6 L Albumin 3.3 L 3.0 L Influenza Type A (PCR) NEGATIVE Influenza Type B (PCR) NEGATIVE RSV RNA Qual (PCR) NEGATIVE SARS-CoV-2 RNA (RT-PCR) NEGATIVE Blood Type Antibody Screen 12/16/23 12/17/23 12/18/23 06:16 06:56 06:10 WBC RBC Hgb Hct MCV MCH MCHC RDW Plt Count MPV Immature Gran % (Auto) Neut % (Auto) Lymph % (Auto) [place] % (Auto) Eos % (Auto) Baso % (Auto) Lymph # (Auto) [place] # (Auto) Eos # (Auto) Baso # (Auto) Abs Immat Gran (auto) Absolute Neuts (auto) Absolute Nucleated RBC Nucleated RBC % (auto) Hold Purple Top SEE NOTE SEE NOTE Sodium 136 135 135 Potassium 5.2 H 4.4 5.1 Chloride 100 99 100 Carbon Dioxide 24 25 24 Anion Gap 17 15 16 BUN 66 H 47 H 52 H Creatinine 7.38 H* 5.18 H* 5.78 H* Estim Creat Clear Calc 6.8 9.7 8.7 Estimated GFR 7 11 9 POC Glucose Random Glucose 98 104 110 Calcium 8.6 8.5 8.5 Magnesium 2.7 H 2.7 H 2.7 H Total Bilirubin 0.4 0.4 0.5 AST 14 19 19 ALT 14 18 20 Alkaline Phosphatase 74 88 86 Total Protein 5.4 L 5.9 L 5.7 L Albumin 2.7 L 3.1 L 2.9 L Influenza Type A (PCR) Influenza Type B (PCR) RSV RNA Qual (PCR) SARS-CoV-2 RNA (RT-PCR) Blood Type Antibody Screen 12/18/23 12:45 WBC RBC Hgb Hct MCV MCH MCHC RDW Plt Count MPV Immature Gran % (Auto) Neut % (Auto) Lymph % (Auto) [place] % (Auto) Eos % (Auto) Baso % (Auto) Lymph # (Auto) [place] # (Auto) Eos # (Auto) Baso # (Auto) Abs Immat Gran (auto) Absolute Neuts (auto) Absolute Nucleated RBC Nucleated RBC % (auto) Hold Purple Top Sodium Potassium Chloride Carbon Dioxide Anion Gap BUN Creatinine Estim Creat Clear Calc Estimated GFR POC Glucose Random Glucose Calcium Magnesium Total Bilirubin AST ALT Alkaline Phosphatase Total Protein Albumin Influenza Type A (PCR) Influenza Type B (PCR) RSV RNA Qual (PCR) SARS-CoV-2 RNA (RT-PCR) Blood Type A Positive Antibody Screen NEGATIVE Airway Mallampati Class: I TM Dist: >3cm Neck ROM: Full Loose/Missing/Broken Teeth: No (patient denies any loose or broken teeth) Heart: S1S2 Lungs: CTAB Assessment and Plan Assessment Anesthesia Assessment: Anesthesia Plan Discussed and Chart Reviewed Final Anesthetic Review Family History of Problems with Anesthesia: No History of Problems with Anesthesia: No NPO: Yes ASA Class: III Final Preanesthetic Review: No Changes in Pt Med Stat, Meds/Allgs Chart Reviewed, Consent Obtained/Reviewed and Anes Risks/Benef Reviewed Patient Risk: Intermediate Procedure Risk: Intermediate Anesthetic Plan Anesthetic Plan: GA and Agree w/ Assess. and Plan Disposition: Standard PACU
--- NOTE | 2023-12-18 15:30 | PC.NURSE ---
Nose to Toes wash complete in preop, tolerated well. Dressing from previous hip surgery two weeks ago present on right hip. Dressing dry and intact and left alone. Small open area/skin tear noted on left buttocks/coccxy area. Patient states yes the nurses are aware of that, they are putting a cream on it . Dr. Pleitez made aware.
--- NOTE | 2023-12-18 20:41 | PM.OP ---
Brief Operative Note Date of Service: 12/18/23 Pre-op diagnosis: right femur periprosthetic fracture Post-op diagnosis: same Procedure: Right hip revision, femur only Implants: Outlook 25mm std conical Modular taoist with 23mm std body and -2.5 36 femoral head Surgeon: Sean Pleitez MD Anesthesia: GETA Was an Director Of Counterintelligence used for this Procedure?: Yes Director Of Counterintelligence: Brian Bajwa Estimated blood loss (mL): 250 IV fluids (mL): 750 Pathology: none sent Condition: stable Disposition: PACU
[2023-12-18] MEDS: HYDROmorphone HCl 0.5 MG/0.5 ML SYRINGE 0.25 MG IVPUSH ×3 (20:52→21:03)
[2023-12-18] MEDS: fentaNYL citrate/PF 100 MCG/2 ML VIAL 25 MCG IVPUSH ×2 (21:18→21:28)
[2023-12-18] MEDS: Morphine Sulfate 2 MG/ML CARTRIDGE IVPUSH (22:42)
[2023-12-19] VITALS (15 sets, daily range): BP systolic 89–125; BP diastolic 44–58; PULSE 62–78; RESP 16–20; TEMP 36.3–37; O2SAT 90–99
[2023-12-19] MEDS: 0.9 % Sodium Chloride Flush 3 ML SYRINGE IVFLUSH ×4 (00:30→20:40)
[2023-12-19 07:32] LABS: Alanine Aminotransferase 15 U/L (0-40); Albumin Level 2.9 g/dL (3.5-5.0); Alkaline Phosphatase 79 U/L (39-117); Anion Gap 20 (12-20); Aspartate Amino Transferase 18 U/L (5-37); Bilirubin Total 0.6 mg/dL (0.0-1.0); Blood Urea Nitrogen 66 mg/dL (9-16); Calcium 8.7 mg/dL (8.4-10.2); Carbon Dioxide 19 mmol/L (22-29); Chloride 100 mmol/L (96-108); Creatinine Clr Calc Pharmacy 6.9; Estimated Glomerular Filt Rate 7; Glucose Random 120 mg/dL (60-115); Magnesium 2.7 mg/dL (1.6-2.6); Potassium 6.3 mmol/L (3.3-5.1); Sodium 133 mmol/L (135-145); Total Protein 5.5 g/dL (6.5-8.0)
--- NOTE | 2023-12-19 07:35 | PC.NURSE ---
Patient received from PACU around 22:10 AAOX4. S/P right hip revision. C/O right hip pain 7/10. 2 mg iv morphine given with good effect. POX =88 to 90% on 2 l. O2 increased to 3 l. POX went to 93 to 98%. BP remained in the soft side:99/55, 106/55, 107/58. 91/44. Patient is V paced on cardiac monitoring. Hip precautions maintained. Safety precautions in place. SCD' s in place. Patient encouraged to call for assistance.
[2023-12-19] MEDS: Docusate Sodium 100 MG CAPSULE PO ×2 (09:29→20:38)
[2023-12-19] MEDS: Multivitamin TABLET 1 TAB PO (09:29)
--- NOTE | 2023-12-19 09:34 | MHC.CM.PN ---
Patient is not yet medically cleared for dc (Low BP & critically high K @ 6.3)PT Eval will assist with disposition. CM will follow.
--- NOTE | 2023-12-19 09:49 | P.PNOP_ITS ---
Subjective Subjective Date of Service: 12/19/23 Principal diagnosis: right hip pain Interval history: POD 1 s/p Revision RT CHERYLE no overnight events resting in bed, feels weak denies cp, sob, palpitations Physical Exam Vital Signs: Vital Signs: Last Vital Signs Temp 98.3 F 12/19/23 07:38 Pulse 64 12/19/23 07:38 Resp 18 12/19/23 07:38 BP 89/47 L 12/19/23 07:48 Pulse Ox 95 12/19/23 07:38 O2 Del Method Nasal Cannula 12/19/23 07:38 O2 Flow Rate 2 12/19/23 07:38 BMI result Body Mass Index 25.5 Const: General: cooperative, healthy appearing and no acute distress Resp: Effort & Inspection: normal respiratory effort and able to speak in complete sentences Cardio: Rate: regular rate Peripheral pulses: Peripheral pulses 2+ throughout GI: Palpation (GI): Soft to palpation Skin: General skin exam: no rashes or lesions noted Extrem: Other: bandage clean dry and intact. Юлия intact. No erythema or effusion. Calf supple nontender. Neurovascularly intact. Procedures Date of Service Date of Service: 12/19/23 Progress Note: A&P Assessment and plan (1) S/P revision of total hip: Status: Acute Assessment and Plan: * Continue pain mgmnt * dvt ppx * PT for revision RT CHERYLE-wbat * Dispo planning-Pending PT eval, pain mgmnt Time Spent With Patient Time: Total time managing care of this patient today ____ minutes. Quality Stroke Does the patient have a stroke diagnosis?: No VTE Prior VTE?: No VTE Risk Level:: Medical - moderate - high VTE Device Contraindication: Treatment Not Indicated VTE Drug Contraindication: N/A - Med Ordered
[2023-12-19] MEDS: Midodrine HCl 10 MG TABLET PO (10:16)
--- NOTE | 2023-12-19 10:28 | P.PNIM_ITS ---
Subjective Subjective Date of Service: 12/19/23 Interval History: Being followed for right hip pain status post revision of right total hip arthroplasty postoperative day 1 Complaining of right hip pain, denies lightheadedness, no dizziness, tolerating diet no nausea no vomiting, no abdominal pain noted to have soft blood pressure this morning with elevated potassium 6.3 and magnesium 2.7. Review of Systems All other system reviewed and are negative. Physical Exam 2 Vital Signs: Vital Signs: Last Vital Signs Temp 98.3 F 12/19/23 07:38 Pulse 64 12/19/23 07:38 Resp 18 12/19/23 07:38 BP 89/47 L 12/19/23 07:48 Pulse Ox 95 12/19/23 07:38 O2 Del Method Nasal Cannula 12/19/23 07:38 O2 Flow Rate 2 12/19/23 07:38 BMI result Body Mass Index 25.5 Const: Other: General awake alert x3, in no acute distress. Neck no JVD. CVS regular rate rhythm, Respiratory lungs clear to auscultation, no respiratory distress, no wheeze, no rhonchi. Gastrointestinal abdomen soft, non tender, bowel sounds audible Extremities no edema. Right hip bandage clean and dry Skin no rash Objective Data Active Medications Acetaminophen (Acetaminophen 325 Mg Tablet) 650 mg PO Q6H PRN PRN Reason: Pain, Mild (Pain Scale 1-3), fever or headache Calcium Carbonate (Calcium Carbonate 750 Mg Tab.Chew) 750 mg PO Q4H PRN PRN Reason: Heartburn Carvedilol (Carvedilol 6.25 Mg Tablet) 6.25 mg PO BID [facility]; Protocol Last Admin: 12/19/23 07:47 Dose: Not Given Documented By: JONATAN Non-Admin Reason: Elevated Blood Pressure Docusate Sodium (Docusate Sodium 100 Mg Capsule) 100 mg PO BID [facility] Last Admin: 12/19/23 09:29 Dose: 100 mg Documented By: JONATAN Enoxaparin Sodium (Enoxaparin Sodium 30 Mg/0.3 Ml Syringe) 30 mg SUBCUT Q24H [facility] Heparin Sodium (Porcine) (Heparin Sodium,Porcine 5,000 Unit/Ml Vial) 5,000 unit SUBCUT Q12H [facility] Last Admin: 12/18/23 05:20 Dose: 5,000 unit Documented By: SULY Cefazolin Sodium/Dextrose (Ancef) 2 gm in 50 mls @ 100 mls/hr IV POSTOP CONSUELO Magnesium Hydroxide (Milk Of Magnesia 30 Ml Oral.Susp) 30 ml PO DAILY PRN PRN Reason: Constipation Last Admin: 12/16/23 09:05 Dose: 30 ml Documented By: MEGAN Melatonin (Melatonin 3 Mg Tablet) 6 mg PO BEDTIME PRN PRN Reason: Insomnia Morphine Sulfate (Morphine Sulfate 2 Mg/Ml Cartridge) 2 mg IVPUSH Q4H PRN; Protocol PRN Reason: Pain, Severe (Pain Scale 7-10) Last Admin: 12/18/23 22:42 Dose: 2 mg Documented By: KAILEY Multivitamins/Vitamin C (Multivitamin Tablet) 1 tab PO DAILY [facility] Last Admin: 12/19/23 09:29 Dose: 1 tab Documented By: JONATAN Ondansetron HCl (Ondansetron Hcl 4 Mg/2 Ml Vial) 4 mg IVPUSH Q8H PRN PRN Reason: Nausea and Vomiting Sodium Biphosphate/Sodium Phosphate (Sodium Phosphate,[place]-Dibasic 133 Ml Enema) 133 ml RI ONCE PRN PRN Reason: Constipation Last Admin: 12/17/23 14:22 Dose: 133 ml Documented By: JHONNY Sodium Chloride (0.9 % Sodium Chloride Flush 3 Ml Syringe) 3 ml IVFLUSH QSHIFT [facility] Last Admin: 12/19/23 09:29 Dose: 3 ml Documented By: JONATAN Labs 12/15/23 05:56 12/19/23 05:50 Labs: Laboratory Results - last 24 hr 12/18/23 12/19/23 12:45 05:50 Hold Purple Top SEE NOTE Anion Gap 20 Estim Creat Clear Calc 6.9 Estimated GFR 7 Random Glucose 120 H Calcium 8.7 Magnesium 2.7 H Total Bilirubin 0.6 AST 18 ALT 15 Alkaline Phosphatase 79 Total Protein 5.5 L Albumin 2.9 L Blood Type A Positive Antibody Screen NEGATIVE Assessment and Plan (1) S/P revision of total hip: Status: Acute (2) Acute hyperkalemia: Status: Acute (3) CKD (chronic kidney disease): Status: Acute (4) Femur fracture: Status: Acute Plan 83-year-old male with a PMH significant for?ESRD on hemodialysis M/W/F, HFrEF, aortic stenosis, CAD s/p cardiac cath (2020), pacemaker in place, HLD, HTN, cardiomyopathy, anemia of chronic disease, diet-controlled diabetes type 2, and avascular necrosis with recent right total hip arthroplasty on 12/04/2023 here at [facility] who presents to the ED for evaluation of right hip pain worsening this morning. Pt will be admitted to the hospital for treatment of right femur fracture that will require surgical revision by Orthopedics. Right hip periprosthetic fracture CT showed nondisplaced longitudinal fracture of right femur s/p right CHERYLE on 12/04/2023, underwent revision of right CHERYLE on 12/17 Will add oxycodone for pain control Acute Hyperkalemia/hypermagnesemia Likely due to ESRD continue hemodialysis Sunday, Sunday,Sunday Follow labs ESRD on HD M/W/F CAD No chest pain, on Coreg and statin HTN Low blood pressure this morning will DC Lasix and hold Coreg will discuss blood pressure management with Nephrology ,give midodrin x1 HFrEF Not in acute exacerbation, will hold Continue home Lasix Full Code DVT Prophylaxis: lovenox In my clinical judgment patient will require continued inpatient hospitalization for pain management, and electrolyte abnormality requiring inpatient hemodialysis. Quality Stroke Does the patient have a stroke diagnosis?: No VTE Prior VTE?: No VTE Risk Level:: Medical - moderate - high VTE Device Contraindication: Treatment Not Indicated VTE Drug Contraindication: N/A - Med Ordered
[2023-12-19] MEDS: Milk of Magnesia 30 ML ORAL.SUSP PO (15:00)
[2023-12-19] MEDS: Apixaban 2.5 MG TABLET PO (20:38)
[2023-12-19] MEDS: carvediloL 6.25 MG TABLET PO (20:39)
[2023-12-20] VITALS (12 sets, daily range): BP systolic 119–142; BP diastolic 32–60; PULSE 61–74; RESP 16–20; TEMP 36.3–37.7; O2SAT 99–100
[2023-12-20] MEDS: Acetaminophen 325 MG TABLET 650 MG PO (06:06)
[2023-12-20 08:02] LABS: Anion Gap 16 (12-20); Blood Urea Nitrogen 40 mg/dL (9-16); Calcium 8.4 mg/dL (8.4-10.2); Carbon Dioxide 25 mmol/L (22-29); Chloride 99 mmol/L (96-108); Creatinine Clr Calc Pharmacy 10.4; Estimated Glomerular Filt Rate 12; Glucose Random 115 mg/dL (60-115); Magnesium 2.6 mg/dL (1.6-2.6); Sodium 134 mmol/L (135-145)
[2023-12-20 09:10] LABS: MANUAL DIFF FLAG NO
[2023-12-20 09:12] LABS: Basophils Percent Auto 0.3 % (0-2); Eosinophils Absolute Auto 0.1 X10*3/uL (0.0-0.4); Eosinophils Percent Auto 0.8 % (0-4); Imm Gran Abs Auto 0.14 X10*3/uL (0.00-0.03); Imm Gran Pct Auto 1.2 % (0.0-0.4); Lymphocytes Absolute Auto 0.8 X10*3/uL (1.2-4.9); Lymphocytes Percent Auto 6.5 % (20-40); Mean Corpuscular HGB Conc 33.2 g/dl (31.0-36.0); Mean Corpuscular Hemoglobin 33.3 pg (27.0-33.0); Mean Corpuscular Volume 100.5 fL (80.0-98.0); Monocytes Percent Auto 8.5 % (2-11); Neutrophils Absolute Auto 9.7 x10*3/uL (2.0-8.3); Neutrophils Percent Auto 82.7 % (45-73); Platelet Count 230 X10*3/uL (160-400); Red Blood Count 2.07 X10*6/uL (4.60-5.80); White Blood Count 11.8 X10*3/uL (4.8-10.8)
[2023-12-20 09:21] LABS: Hemoglobin 6.9 g/dl (14.0-18.0)
[2023-12-20 09:22] LABS: Hematocrit 20.8 % (42.0-52.0)
--- NOTE | 2023-12-20 09:35 | P.PNOP_ITS ---
Subjective Subjective Date of Service: 12/20/23 Principal diagnosis: right hip pain Interval history: POD 2 s/p Revision RT CHERYLE no overnight events resting in bed- states he has been getting out of bed denies cp, sob, palpitations Physical Exam Vital Signs: Vital Signs: Last Vital Signs Temp 97.7 F 12/20/23 07:27 Pulse 68 12/20/23 09:15 Resp 20 12/20/23 07:27 BP 119/46 L 12/20/23 09:15 Pulse Ox 100 12/20/23 09:15 O2 Del Method Nasal Cannula 12/20/23 07:27 O2 Flow Rate 2 12/20/23 07:27 Oxygen Flow Rate 4 12/19/23 20:56 BMI result Body Mass Index 25.5 Const: General: cooperative, healthy appearing and no acute distress Resp: Effort & Inspection: normal respiratory effort and able to speak in complete sentences Cardio: Rate: regular rate Peripheral pulses: Peripheral pulses 2+ throughout GI: Palpation (GI): Soft to palpation Skin: General skin exam: no rashes or lesions noted Extrem: Other: bandage saturated. Юлия intact. No erythema or effusion. Calf supple nontender. Neurovascularly intact. Procedures Date of Service Date of Service: 12/20/23 Progress Note: A&P Assessment and plan (1) S/P revision of total hip: Status: Acute Assessment and Plan: * Continue pain mgmnt * dvt ppx eliquis-hold this AM due to low H/H--will receive 1unit of PRBc * PT for revision RT CHERYLE-wbat * Dispo planning-Pending PT, pain mgmnt, rehab placement Time Spent With Patient Time: Total time managing care of this patient today ____ minutes. Quality Stroke Does the patient have a stroke diagnosis?: No VTE Prior VTE?: No VTE Risk Level:: Medical - moderate - high VTE Device Contraindication: Treatment Not Indicated VTE Drug Contraindication: N/A - Med Ordered
[2023-12-20] MEDS: 0.9 % Sodium Chloride Flush 3 ML SYRINGE IVFLUSH ×3 (09:40→20:29)
[2023-12-20] MEDS: Sodium Zirconium Cyclosilicate 10 GM POWD.PACK PO ×3 (09:40→20:28)
[2023-12-20] MEDS: Multivitamin TABLET 1 TAB PO (09:41)
[2023-12-20] MEDS: carvediloL 6.25 MG TABLET PO ×2 (09:41→20:29)
[2023-12-20] MEDS: Docusate Sodium 100 MG CAPSULE PO ×2 (09:41→20:28)
--- NOTE | 2023-12-20 10:14 | MHC.CM.PN ---
Per ROUNDS discussion, Patient is receiving 1 unit of PRBC and is not yet medically cleared for dc. PT is recommending STR (HD Patient) and CM will continue to follow.
--- NOTE | 2023-12-20 11:46 | P.PNIM_ITS ---
Subjective Subjective Date of Service: 12/20/23 Interval History: Complaining of right leg stiffness, swelling, and pain, complaining of dizziness with standing, denies fever, no chills, tolerating diet no nausea, no vomiting, no bowel movement in last several days, no other acute events overnight. Hematocrit dropped to 20.8 from 28.3 Review of Systems All other system reviewed and are negative. Physical Exam 2 Vital Signs: Vital Signs: Last Vital Signs Temp 97.4 F 12/20/23 11:18 Pulse 61 12/20/23 11:18 Resp 16 12/20/23 11:18 BP 120/37 L 12/20/23 11:18 Pulse Ox 100 12/20/23 09:15 O2 Del Method Nasal Cannula 12/20/23 07:27 O2 Flow Rate 2 12/20/23 07:27 Oxygen Flow Rate 4 12/19/23 20:56 BMI result Body Mass Index 25.5 Const: Other: General awake alert x3, in no acute distress. Neck no JVD. CVS regular rate rhythm, Respiratory lungs clear to auscultation, no respiratory distress, no wheeze, no rhonchi. Gastrointestinal abdomen soft, non tender, bowel sounds audible Extremities no edema. Right hip incision site bleeding noted Skin no rash Psych appropriate affect Objective Data Active Medications Acetaminophen (Acetaminophen 325 Mg Tablet) 650 mg PO Q6H PRN PRN Reason: Pain, Mild (Pain Scale 1-3), fever or headache Last Admin: 12/20/23 06:06 Dose: 650 mg Documented By: HANNA Apixaban (Apixaban 2.5 Mg Tablet) 2.5 mg PO BID [facility] Last Admin: 12/20/23 09:32 Dose: Not Given Documented By: DAQUAN Non-Admin Reason: Physician Held Med Calcium Carbonate (Calcium Carbonate 750 Mg Tab.Chew) 750 mg PO Q4H PRN PRN Reason: Heartburn Carvedilol (Carvedilol 6.25 Mg Tablet) 6.25 mg PO BID [facility]; Protocol Last Admin: 12/20/23 09:41 Dose: 6.25 mg Documented By: DAQUAN Docusate Sodium (Docusate Sodium 100 Mg Capsule) 100 mg PO BID [facility] Last Admin: 12/20/23 09:41 Dose: 100 mg Documented By: DAQUAN Cefazolin Sodium/Dextrose (Ancef) 2 gm in 50 mls @ 100 mls/hr IV POSTOP [facility] Magnesium Hydroxide (Milk Of Magnesia 30 Ml Oral.Susp) 30 ml PO DAILY PRN PRN Reason: Constipation Last Admin: 12/19/23 15:00 Dose: 30 ml Documented By: JONATAN Melatonin (Melatonin 3 Mg Tablet) 6 mg PO BEDTIME PRN PRN Reason: Insomnia Multivitamins/Vitamin C (Multivitamin Tablet) 1 tab PO DAILY [facility] Last Admin: 12/20/23 09:41 Dose: 1 tab Documented By: DAQUAN Ondansetron HCl (Ondansetron Hcl 4 Mg/2 Ml Vial) 4 mg IVPUSH Q8H PRN PRN Reason: Nausea and Vomiting Sodium Biphosphate/Sodium Phosphate (Sodium Phosphate,[place]-Dibasic 133 Ml Enema) 133 ml [place] ONCE PRN PRN Reason: Constipation Last Admin: 12/17/23 14:22 Dose: 133 ml Documented By: JHONNY Sodium Chloride (0.9 % Sodium Chloride Flush 3 Ml Syringe) 3 ml IVFLUSH QSHIFT [facility] Last Admin: 12/20/23 09:40 Dose: 3 ml Documented By: DAQUAN Labs 12/20/23 08:54 12/20/23 05:51 Labs: Laboratory Results - last 24 hr 12/18/23 12/20/23 12/20/23 12:45 05:51 08:54 MCV 100.5 H MCH 33.3 H MCHC 33.2 RDW 15.0 Plt Count 230 MPV 10.0 Immature Gran % (Auto) 1.2 H Neut % (Auto) 82.7 H Lymph % (Auto) 6.5 L [place] % (Auto) 8.5 Eos % (Auto) 0.8 Baso % (Auto) 0.3 Lymph # (Auto) 0.8 L [place] # (Auto) 1.0 Eos # (Auto) 0.1 Baso # (Auto) 0.0 Abs Immat Gran (auto) 0.14 H Absolute Neuts (auto) 9.7 H Absolute Nucleated RBC 0.000 Nucleated RBC % (auto) 0.0 Hold Purple Top SEE NOTE Anion Gap 16 Estim Creat Clear Calc 10.4 Estimated GFR 12 Random Glucose 115 Calcium 8.4 Magnesium 2.6 Blood Type A Positive Antibody Screen NEGATIVE Crossmatch See Detail Assessment and Plan (1) S/P revision of total hip: Status: Acute Plan 83-year-old male with a PMH significant for?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 Pt will be admitted to the hospital for treatment of right femur fracture that will require surgical revision by Orthopedics. Right hip periprosthetic fracture Good pain control CT showed nondisplaced longitudinal fracture of right femur s/p right CHERYLE on 12/04/2023, underwent revision of right CHERYLE on 12/17 cont. oxycodone /Tylenol for pain control/PT Add stool softeners Acute Hyperkalemia/hypermagnesemia Likely due to ESRD continue hemodialysis Sunday, Sunday,Sunday Will give Lokelma 10 mg x 1 today Follow BMP Acute on chronic microcytic anemia H&H drop likely acute blood loss due to surgery Will transfuse 1 unit of packed RBC, check iron profile follow H&H ESRD on HD M/W/F CAD No chest pain, on Coreg and statin HTN Blood pressure improved continue Coreg, Lasix discontinued due to low blood pressure HFrEF Not in acute exacerbation, will hold Continue home Lasix Full Code DVT Prophylaxis: Eliquis 2.5 mg b.i.d., hold dose this morning due to bleeding from surgical site In my clinical judgment patient will require continued inpatient hospitalization for pain management, and electrolyte abnormality requiring inpatient hemodialysis. Quality Stroke Does the patient have a stroke diagnosis?: No VTE Prior VTE?: No VTE Risk Level:: Medical - moderate - high VTE Device Contraindication: Treatment Not Indicated VTE Drug Contraindication: N/A - Med Ordered
[2023-12-20] MEDS: polyethylene glycoL 3350 17 GM POWD.PACK PO (12:16)
[2023-12-20 12:21] LABS: Iron 43 mcg/dL (45-160); Percent Iron Saturation 36 % (15-50); Total Iron Binding Capacity 119 mcg/dL (228-428); Unsaturated Iron Binding 76 ug/dL
--- NOTE | 2023-12-20 13:12 | P.PNNP_ITS ---
Subjective Subjective Date of Service: 12/20/23 Principal diagnosis: right hip pain Interval history: Seen and examined,norberto vincent notd S/P HD yesterday and th am K 6.0 but his diet is not low in K---he has been eating sweet potatoes Hb dropped --getting xfusion this am Physical Exam 2 Vital Signs: Vital Signs: Last Vital Signs Temp 97.7 F 12/20/23 13:07 Pulse 62 12/20/23 13:07 Resp 17 12/20/23 13:07 BP 127/32 L 12/20/23 13:07 Pulse Ox 100 12/20/23 09:15 O2 Del Method Nasal Cannula 12/20/23 07:27 O2 Flow Rate 2 12/20/23 07:27 Oxygen Flow Rate 4 12/19/23 20:56 BMI result Body Mass Index 25.5 Const: Other: General awake alert x3, in no acute distress. Neck no JVD. CVS regular rate rhythm, Respiratory lungs clear to auscultation, no respiratory distress, no wheeze, no rhonchi. Gastrointestinal abdomen soft, non tender, bowel sounds audible Extremities no edema. Right hip incision site bleeding noted Skin no rash Psych appropriate affect General: cooperative, healthy appearing, no acute distress, alert and awake Nutritional Appearance: well nourished Orientation/consciousness: patient oriented x3 Limitations: no limitations and No language barrier HEENT: Head: Yes normal to inspection and Yes atraumatic Ears: hearing grossly normal bilaterally and external ears normal General nose exam: Normal external nose present, no nasal discharge noted and no epistaxis Face and sinus: Yes normal facial exam, No abrasion and No laceration Mouth: Normal oral and palatal mucosa present, no drooling and no muffled voice Eyes: General: appearance normal, both eyes and all related structures P eriorbital: periorbital findings normal Eyelids: Yes eyelids normal C onjunctivae: conjunctivae normal Pupils: Equal, round and reactive pupils present EOM: EOMs intact bilaterally Neck: Neck: Yes normal visual inspection, Yes full ROM and Yes no lymphadenopathy Chest: Chest palpation & inspection: normal inspection of the chest Resp: Effort & Inspection: normal respiratory effort and able to speak in complete sentences Cardio: Rate: regular rate Peripheral pulses: Peripheral pulses 2+ throughout GI: Inspection: Yes normal to inspection Palpation (GI): Soft to palpation Back/Spine/Pelvis: Other: significant pain of the right thigh with movement / rotation / pressure of the right foot Skin: General skin exam: no rashes or lesions noted Neuro: General: patient oriented x3 and moves all extremities Cranial nerves: Yes Equal, round and reactive pupils present Cognition (Neuro): n ormal cognition Extrem: Other: bandage saturated. Юлия intact. No erythema or effusion. Calf supple nontender. Neurovascularly intact. General: Yes normal to inspection, Yes full ROM and Yes capillary refill normal Psych: Appearance: grossly normal Mental Status: mental status grossly normal Affect: normal affect Attitude: cooperative Thought process: N ormal thought process present Thought content: Normal thought content present Insight: Good insight present (Psych) Objective Data Labs 12/20/23 08:54 12/20/23 05:51 Labs: Laboratory Results - last 24 hr 12/18/23 12/20/23 12/20/23 12:45 05:51 08:54 WBC 11.8 H RBC 2.07 L D Hgb 6.9 L* D Hct 20.8 L* D MCV 100.5 H MCH 33.3 H MCHC 33.2 RDW 15.0 Plt Count 230 MPV 10.0 Immature Gran % (Auto) 1.2 H Neut % (Auto) 82.7 H Lymph % (Auto) 6.5 L [place] % (Auto) 8.5 Eos % (Auto) 0.8 Baso % (Auto) 0.3 Lymph # (Auto) 0.8 L [place] # (Auto) 1.0 Eos # (Auto) 0.1 Baso # (Auto) 0.0 Abs Immat Gran (auto) 0.14 H Absolute Neuts (auto) 9.7 H Absolute Nucleated RBC 0.000 Nucleated RBC % (auto) 0.0 Hold Purple Top SEE NOTE Sodium 134 L Potassium 6.0 H* Chloride 99 Carbon Dioxide 25 Anion Gap 16 BUN 40 H Creatinine 4.81 H* Estim Creat Clear Calc 10.4 Estimated GFR 12 Random Glucose 115 Calcium 8.4 Magnesium 2.6 Iron 43 L TIBC 119 L % Saturation 36 Unsat Iron Binding 76 Blood Type A Positive Antibody Screen NEGATIVE Crossmatch See Detail Procedures Date of Service Date of Service: 12/20/23 Assessment & Plan Assessment and plan (1) ESRD (end stage renal disease) on dialysis: Status: Acute Plan ESRD: mwf Hip Fx s/p repair 12/03 now requiring revision Anemia: drop in Hb and getting xfusion HyperK despite Hd yesterday but not on low K diet REC: got 10 gm Lokelma this am and repeat now with f/u K at 3 pm as may need HD this PM but hope to wait for HD untuil 12/20 ( usu day mwf) D/W Dr Bazzi and 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 Progress Note: Quality Stroke Does the patient have a stroke diagnosis?: No
[2023-12-20 13:42] LABS: Ferritin 2598 ng/mL (20-250)
[2023-12-20 15:55] LABS: Potassium 5.5 mmol/L (3.3-5.1)
[2023-12-20] MEDS: Apixaban 2.5 MG TABLET PO (20:28)
[2023-12-21] VITALS (13 sets, daily range): BP systolic 94–187; BP diastolic 44–79; PULSE 63–70; RESP 16–20; TEMP 35.7–37.1; O2SAT 96–100
[2023-12-21 06:47] LABS: Hematocrit 21.5 % (42.0-52.0); Hemoglobin 7.1 g/dl (14.0-18.0); Mean Corpuscular Hemoglobin 31.8 pg (27.0-33.0); Mean Corpuscular Volume 96.4 fL (80.0-98.0); Platelet Count 200 X10*3/uL (160-400); Red Blood Count 2.23 X10*6/uL (4.60-5.80); Red Cell Distribution Width 16.1 % (11.0-16.0); White Blood Count 8.4 X10*3/uL (4.8-10.8)
[2023-12-21 07:07] LABS: Anion Gap 15 (12-20); Blood Urea Nitrogen 53 mg/dL (9-16); Carbon Dioxide 24 mmol/L (22-29); Chloride 97 mmol/L (96-108); Creatinine Clr Calc Pharmacy 8.2; Estimated Glomerular Filt Rate 9; Glucose Random 97 mg/dL (60-115); Potassium 4.9 mmol/L (3.3-5.1); Sodium 131 mmol/L (135-145)
[2023-12-21] MEDS: Multivitamin TABLET 1 TAB PO (08:31)
[2023-12-21] MEDS: Docusate Sodium 100 MG CAPSULE PO ×2 (08:31→21:58)
[2023-12-21] MEDS: 0.9 % Sodium Chloride Flush 3 ML SYRINGE IVFLUSH ×3 (08:31→21:58)
[2023-12-21] MEDS: carvediloL 6.25 MG TABLET PO ×2 (08:31→18:14)
[2023-12-21] MEDS: Apixaban 2.5 MG TABLET PO ×2 (08:31→21:58)
[2023-12-21] MEDS: Acetaminophen 325 MG TABLET 650 MG PO (08:34)
--- NOTE | 2023-12-21 10:54 | PC.NURSE ---
Patient requiring blood transfusion, blood hung and administered while patient received dialysis. Patient tolerating well, dialysis nurse at beside. All other needs met at this time.
--- NOTE | 2023-12-21 12:05 | HO.PM.IMPN ---
Subjective Subjective Date of Service: 12/21/23 Interval History: Being followed for right femoral fracture status post surgery, complaining of feeling cold and weak, no bleeding noted from surgical side. Review of Systems All other system reviewed and are negative. Physical Exam Vital Signs: Vital Signs: Last Vital Signs Temp 96.4 F L 12/21/23 11:25 Pulse 66 12/21/23 11:25 Resp 16 12/21/23 11:25 BP 94/56 L 12/21/23 11:25 Pulse Ox 99 12/21/23 08:32 O2 Del Method Room Air 12/21/23 07:35 O2 Flow Rate 2 12/20/23 19:10 Oxygen Flow Rate 4 12/19/23 20:56 BMI result Body Mass Index 25.5 Const: Other: General awake alert x3, in no acute distress. Neck no JVD. CVS regular rate rhythm, Respiratory lungs clear to auscultation, no respiratory distress, no wheeze, no rhonchi. Gastrointestinal abdomen soft, non tender, bowel sounds audible Extremities no edema. Right hip incision site no bleeding Skin no rash Psych appropriate affect Objective Data Active Medications Acetaminophen (Acetaminophen 325 Mg Tablet) 650 mg PO Q6H PRN PRN Reason: Pain, Mild (Pain Scale 1-3), fever or headache Last Admin: 12/21/23 08:34 Dose: 650 mg Documented By: SIMON Apixaban (Apixaban 2.5 Mg Tablet) 2.5 mg PO BID [facility] Last Admin: 12/21/23 08:31 Dose: 2.5 mg Documented By: SIMON Calcium Carbonate (Calcium Carbonate 750 Mg Tab.Chew) 750 mg PO Q4H PRN PRN Reason: Heartburn Carvedilol (Carvedilol 6.25 Mg Tablet) 6.25 mg PO BID [facility]; Protocol Last Admin: 12/21/23 08:31 Dose: 6.25 mg Documented By: SIMON Docusate Sodium (Docusate Sodium 100 Mg Capsule) 100 mg PO BID [facility] Last Admin: 12/21/23 08:31 Dose: 100 mg Documented By: SIMON Cefazolin Sodium/Dextrose (Ancef) 2 gm in 50 mls @ 100 mls/hr IV POSTOP [facility] Magnesium Hydroxide (Milk Of Magnesia 30 Ml Oral.Susp) 30 ml PO DAILY PRN PRN Reason: Constipation Last Admin: 12/19/23 15:00 Dose: 30 ml Documented By: JONATAN Melatonin (Melatonin 3 Mg Tablet) 6 mg PO BEDTIME PRN PRN Reason: Insomnia Multivitamins/Vitamin C (Multivitamin Tablet) 1 tab PO DAILY [facility] Last Admin: 12/21/23 08:31 Dose: 1 tab Documented By: SIMON Ondansetron HCl (Ondansetron Hcl 4 Mg/2 Ml Vial) 4 mg IVPUSH Q8H PRN PRN Reason: Nausea and Vomiting Oxycodone HCl (Oxycodone Hcl Immed Release 5 Mg Tablet) 5 mg PO Q6H PRN PRN Reason: Pain, Severe (Pain Scale 7-10) Polyethylene Glycol (Polyethylene Glycol 3350 17 Gm Powd.Pack) 17 gm PO DAILY [facility] Last Admin: 12/21/23 08:32 Dose: Not Given Documented By: SIMON Non-Admin Reason: patient going to dilaysis Sodium Biphosphate/Sodium Phosphate (Sodium Phosphate,[place]-Dibasic 133 Ml Enema) 133 ml [place] ONCE PRN PRN Reason: Constipation Last Admin: 12/17/23 14:22 Dose: 133 ml Documented By: JHONNY Sodium Chloride (0.9 % Sodium Chloride Flush 3 Ml Syringe) 3 ml IVFLUSH QSRIFT [facility] Last Admin: 12/21/23 08:31 Dose: 3 ml Documented By: SIMON Labs 12/21/23 06:05 12/21/23 06:05 Labs: Laboratory Results - last 24 hr 12/18/23 12/20/23 12/20/23 12:45 05:51 08:54 MCV MCH MCHC RDW Plt Count MPV Absolute Nucleated RBC Nucleated RBC % (auto) Smear Path Review Anion Gap Estim Creat Clear Calc Estimated GFR Random Glucose Calcium Iron 43 L TIBC 119 L % Saturation 36 Unsat Iron Binding 76 Ferritin 2598 H Blood Type A Positive Antibody Screen NEGATIVE Crossmatch See Detail 12/21/23 06:05 MCV 96.4 MCH 31.8 MCHC 33.0 RDW 16.1 H Plt Count 200 MPV 10.0 Absolute Nucleated RBC 0.000 Nucleated RBC % (auto) 0.0 Smear Path Review Anion Gap 15 Estim Creat Clear Calc 8.2 Estimated GFR 9 Random Glucose 97 Calcium 8.0 L Iron TIBC % Saturation Unsat Iron Binding Ferritin Blood Type Antibody Screen Crossmatch Assessment and Plan (1) S/P revision of total hip: Status: Acute (2) Acute hyperkalemia: Status: Acute (3) CKD (chronic kidney disease): Status: Acute (4) Anemia: Status: Acute Plan 83-year-old male with a PMH significant for?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 Pt will be admitted to the hospital for treatment of right femur fracture that will require surgical revision by Orthopedics. Right hip periprosthetic fracture Good pain control CT showed nondisplaced longitudinal fracture of right femur s/p right CHERYLE on 12/04/2023, underwent revision of right CHERYLE on 12/17 Good pain control cont. oxycodone /Tylenol Add stool softeners PT recommend short-term rehab. Acute Hyperkalemia/hypermagnesemia resolved Likely due to ESRD continue hemodialysis Sunday, Sunday,Sunday Follow BMP Acute on chronic microcytic anemia H&H drop likely acute blood loss due to surgery s/p 1 unit packed RBC on 12/19 , hematocrit remains low this morning will transfuse 1 more unit today, iron studies consistent with anemia of inflammatory disease likely due to chronic kidney disease Follow H&H will discuss use of Procrit with Nephrology ESRD on HD M/W/F CAD No chest pain, on Coreg and statin HTN Blood pressure soft continue Coreg, Lasix discontinued due to low blood pressure HFrEF Not in acute exacerbation, will hold lasix Full Code DVT Prophylaxis: Eliquis 2.5 mg b.i.d., In my clinical judgment patient will require continued inpatient hospitalization for pain management, and electrolyte abnormality requiring inpatient hemodialysis. Quality Stroke Does the patient have a stroke diagnosis?: No VTE Prior VTE?: No VTE Risk Level:: Medical - moderate - high VTE Device Contraindication: Treatment Not Indicated VTE Drug Contraindication: N/A - Med Ordered
--- NOTE | 2023-12-21 13:23 | MHC.CM.PN ---
EMR reviewed and per MD rounds, pt is not medically cleared for discharge due to management of post-op care.
--- NOTE | 2023-12-21 19:22 | PM.PNORT ---
Subjective Subjective Date of Service: 12/21/23 Principal diagnosis: right hip pain Interval history: 83 YO M s/p R CHERYLE revision DOS 12/18/23 Patient resting comfortably in bed Pain well controlled Has been getting OOB with PT no acute complaints or concerns Physical Exam Vital Signs: Vital Signs: Last Vital Signs Temp 98.0 F 12/21/23 15:30 Pulse 67 12/21/23 18:14 Resp 19 12/21/23 15:30 BP 187/79 H 12/21/23 18:14 Pulse Ox 100 12/21/23 15:30 O2 Del Method Room Air 12/21/23 15:30 O2 Flow Rate 2 12/20/23 19:10 Oxygen Flow Rate 4 12/19/23 20:56 BMI result Body Mass Index 25.5 Extrem: Other: Dressing on R hip clean, dry, intact No erythema or evidence of infection Dressing nonsaturated No tenderness to gentle palpation Compartments soft, nontender Distal sensation intact Capillary refill brisk Procedures Date of Service Date of Service: 12/21/23 Progress Note: A&P Assessment and plan (1) S/P revision of total hip: Status: Acute Plan Continue with pain management Continue anticoagulation with eliquis Continue to monitor H/H for potential need for transfusion Continue with PT PT recommends STR upon d/c COntinue with all other recs per Medicine Time Spent With Patient Time: Total time managing care of this patient today ____ minutes. Quality Stroke Does the patient have a stroke diagnosis?: No VTE Prior VTE?: No VTE Risk Level:: Medical - moderate - high VTE Device Contraindication: Treatment Not Indicated VTE Drug Contraindication: N/A - Med Ordered
[2023-12-22 03:54] VITALS: BP 148/62; PULSE 68; RESP 18; TEMP 37.1; O2SAT 97
[2023-12-22 06:50] LABS: Anion Gap 14 (12-20); Blood Urea Nitrogen 27 mg/dL (9-16); Calcium 7.9 mg/dL (8.4-10.2); Carbon Dioxide 23 mmol/L (22-29); Chloride 98 mmol/L (96-108); Creatinine Clr Calc Pharmacy 12.4; Estimated Glomerular Filt Rate 14; Glucose Random 92 mg/dL (60-115); Potassium 3.7 mmol/L (3.3-5.1); Sodium 131 mmol/L (135-145)
[2023-12-22 06:53] LABS: Hematocrit 24.3 % (42.0-52.0); Hemoglobin 8.3 g/dl (14.0-18.0); Mean Corpuscular HGB Conc 34.2 g/dl (31.0-36.0); Mean Corpuscular Hemoglobin 32.2 pg (27.0-33.0); Mean Corpuscular Volume 94.2 fL (80.0-98.0); Mean Platelet Volume 10.1 fL (9.4-12.4); Platelet Count 205 X10*3/uL (160-400); Red Blood Count 2.58 X10*6/uL (4.60-5.80); Red Cell Distribution Width 15.9 % (11.0-16.0); White Blood Count 7.6 X10*3/uL (4.8-10.8)
[2023-12-22 07:29] VITALS: BP 149/69; PULSE 72; RESP 17; TEMP 36.3; O2SAT 100
--- NOTE | 2023-12-22 08:20 | PM.PNORT ---
Subjective Subjective Date of Service: 12/22/23 Principal diagnosis: right hip pain Interval history: 83 YO M s/p R CHERYLE revision DOS 12/18/23 Patient resting comfortably in bed Pain moderately well controlled Has been getting OOB with PT Patient states that he has had trouble with active flexion of the right hip no acute complaints or concerns Physical Exam Vital Signs: Vital Signs: Last Vital Signs Temp 97.3 F 12/22/23 07:29 Pulse 72 12/22/23 07:29 Resp 17 12/22/23 07:29 BP 149/69 H 12/22/23 07:29 Pulse Ox 100 12/22/23 07:29 O2 Del Method Room Air 12/22/23 07:29 O2 Flow Rate 2 12/20/23 19:10 Oxygen Flow Rate 4 12/19/23 20:56 BMI result Body Mass Index 25.5 Extrem: Other: Dressing on R hip clean, dry, intact No erythema or evidence of infection Dressing nonsaturated, but starting to come off with upper layer of tape and reinforcement No tenderness to gentle palpation Compartments soft, nontender Distal sensation intact Capillary refill brisk Procedures Date of Service Date of Service: 12/22/23 Progress Note: A&P Assessment and plan (1) S/P revision of total hip: Status: Acute Plan Due to corners of Aquacel lifting, and stuck to the upper layer of dressing, old dressing is removed and new Aquacel applied today Continue with pain management Continue anticoagulation with eliquis Continue to monitor H/H for potential need for transfusion, H/H improved today Continue with PT PT recommends STR upon d/c COntinue with all other recs per Medicine Time Spent With Patient Time: Total time managing care of this patient today ____ minutes. Quality Stroke Does the patient have a stroke diagnosis?: No VTE Prior VTE?: No VTE Risk Level:: Medical - moderate - high VTE Device Contraindication: Treatment Not Indicated VTE Drug Contraindication: N/A - Med Ordered
[2023-12-22] MEDS: 0.9 % Sodium Chloride Flush 3 ML SYRINGE IVFLUSH ×3 (08:33→20:19)
[2023-12-22] MEDS: Multivitamin TABLET 1 TAB PO (08:34)
[2023-12-22] MEDS: Apixaban 2.5 MG TABLET PO ×2 (08:34→20:19)
[2023-12-22] MEDS: polyethylene glycoL 3350 17 GM POWD.PACK PO (08:34)
[2023-12-22] MEDS: carvediloL 6.25 MG TABLET PO ×2 (08:34→20:19)
[2023-12-22] MEDS: Docusate Sodium 100 MG CAPSULE PO ×2 (08:34→20:19)
--- NOTE | 2023-12-22 10:29 | HO.PM.IMPN ---
Subjective Subjective Date of Service: 12/22/23 Interval History: Feeling better, denies lightheadedness or dizziness, good pain control right leg, no recurrent bleeding noted from incision site, no nausea, no vomiting, no abdominal pain, no fevers, no chills. Review of Systems All other system reviewed and are negative. Physical Exam Vital Signs: Vital Signs: Last Vital Signs Temp 97.3 F 12/22/23 07:29 Pulse 72 12/22/23 07:29 Resp 17 12/22/23 07:29 BP 149/69 H 12/22/23 07:29 Pulse Ox 100 12/22/23 07:29 O2 Del Method Room Air 12/22/23 07:29 O2 Flow Rate 2 12/20/23 19:10 Oxygen Flow Rate 4 12/19/23 20:56 BMI result Body Mass Index 25.5 Const: Other: General awake alert x3, in no acute distress. Neck no JVD. CVS regular rate rhythm, Respiratory lungs clear to auscultation, no respiratory distress, no wheeze, no rhonchi. Gastrointestinal abdomen soft, non tender, bowel sounds audible Extremities no edema. Right hip incision site dressing in place, no bruising, no bleeding Skin no rash Psych appropriate affect Objective Data Active Medications Acetaminophen (Acetaminophen 325 Mg Tablet) 650 mg PO Q6H PRN PRN Reason: Pain, Mild (Pain Scale 1-3), fever or headache Last Admin: 12/21/23 08:34 Dose: 650 mg Documented By: SIMON Apixaban (Apixaban 2.5 Mg Tablet) 2.5 mg PO BID [facility] Last Admin: 12/22/23 08:34 Dose: 2.5 mg Documented By: MILADYS Calcium Carbonate (Calcium Carbonate 750 Mg Tab.Chew) 750 mg PO Q4H PRN PRN Reason: Heartburn Carvedilol (Carvedilol 6.25 Mg Tablet) 6.25 mg PO BID [facility]; Protocol Last Admin: 12/22/23 08:34 Dose: 6.25 mg Documented By: MILADYS Docusate Sodium (Docusate Sodium 100 Mg Capsule) 100 mg PO BID [facility] Last Admin: 12/22/23 08:34 Dose: 100 mg Documented By: MILADYS Magnesium Hydroxide (Milk Of Magnesia 30 Ml Oral.Susp) 30 ml PO DAILY PRN PRN Reason: Constipation Last Admin: 12/19/23 15:00 Dose: 30 ml Documented By: JONATAN Melatonin (Melatonin 3 Mg Tablet) 6 mg PO BEDTIME PRN PRN Reason: Insomnia Multivitamins/Vitamin C (Multivitamin Tablet) 1 tab PO DAILY [facility] Last Admin: 12/22/23 08:34 Dose: 1 tab Documented By: MILADYS Ondansetron HCl (Ondansetron Hcl 4 Mg/2 Ml Vial) 4 mg IVPUSH Q8H PRN PRN Reason: Nausea and Vomiting Oxycodone HCl (Oxycodone Hcl Immed Release 5 Mg Tablet) 5 mg PO Q6H PRN PRN Reason: Pain, Severe (Pain Scale 7-10) Polyethylene Glycol (Polyethylene Glycol 3350 17 Gm Powd.Pack) 17 gm PO DAILY [facility] Last Admin: 12/22/23 08:34 Dose: 17 gm Documented By: MILADYS Sodium Biphosphate/Sodium Phosphate (Sodium Phosphate,[place]-Dibasic 133 Ml Enema) 133 ml [place] ONCE PRN PRN Reason: Constipation Last Admin: 12/17/23 14:22 Dose: 133 ml Documented By: JHONNY Sodium Chloride (0.9 % Sodium Chloride Flush 3 Ml Syringe) 3 ml IVFLUSH QSHIFT [facility] Last Admin: 12/22/23 08:33 Dose: 3 ml Documented By: MILADYS Labs 12/22/23 05:56 12/22/23 05:56 Labs: Laboratory Results - last 24 hr 12/18/23 12/22/23 12:45 05:56 MCV 94.2 MCH 32.2 MCHC 34.2 RDW 15.9 Plt Count 205 MPV 10.1 Absolute Nucleated RBC 0.000 Nucleated RBC % (auto) 0.0 Anion Gap 14 Estim Creat Clear Calc 12.4 Estimated GFR 14 Random Glucose 92 Calcium 7.9 L Blood Type A Positive Antibody Screen NEGATIVE Crossmatch See Detail Assessment and Plan (1) Acute hyperkalemia: Status: Acute (2) S/P revision of total hip: Status: Acute (3) Anemia: Status: Acute Plan 83-year-old male with a PMH significant for?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 who presents to the ED for evaluation of right hip pain worsening this morning. Pt will be admitted to the hospital for treatment of right femur fracture that will require surgical revision by Orthopedics. Right hip periprosthetic fracture Good pain control CT showed nondisplaced longitudinal fracture of right femur s/p right CHERYLE on 12/04/2023, underwent revision of right CHERYLE on 12/17 Good pain control cont. oxycodone /Tylenol stool softeners PT recommend short-term rehab. Acute Hyperkalemia/hypermagnesemia resolved Likely due to ESRD continue hemodialysis Sunday, Sunday,Sunday Follow BMP Acute on chronic microcytic anemia H&H drop likely acute blood loss due to surgery s/p 2 unit packed RBC hematocrit improved , iron studies consistent with anemia of inflammatory disease likely due to chronic kidney disease will discuss use of Procrit with Nephrology ESRD on HD M/W/F CAD No chest pain, on Coreg and statin HTN Blood pressure initially soft now trending up on Coreg will resume Lasix HFrEF Not in acute exacerbation, on lasix Full Code DVT Prophylaxis: Eliquis 2.5 mg b.i.d., In my clinical judgment patient will require continued inpatient hospitalization for pain management, anemia and electrolyte abnormality requiring inpatient hemodialysis. Quality Stroke Does the patient have a stroke diagnosis?: No VTE Prior VTE?: No VTE Risk Level:: Medical - moderate - high VTE Device Contraindication: Treatment Not Indicated VTE Drug Contraindication: N/A - Med Ordered
[2023-12-22] MEDS: Furosemide 40 MG TABLET PO (11:10)
[2023-12-22 11:43] VITALS: BP 141/63; PULSE 64; RESP 18; TEMP 36.4; O2SAT 97
[2023-12-22 15:52] VITALS: BP 153/56; PULSE 64; RESP 20; TEMP 36.7; O2SAT 100
[2023-12-22 19:41] VITALS: BP 174/73; PULSE 67; RESP 18; TEMP 36.6; O2SAT 100
[2023-12-22 20:00] VITALS: O2SAT 98
[2023-12-23] VITALS (7 sets, daily range): BP systolic 123–170; BP diastolic 56–76; PULSE 60–70; RESP 16–20; TEMP 36.1–36.8; O2SAT 99–100
[2023-12-23] MEDS: Docusate Sodium 100 MG CAPSULE PO ×2 (08:30→20:37)
[2023-12-23] MEDS: carvediloL 6.25 MG TABLET PO ×2 (08:30→20:37)
[2023-12-23] MEDS: Multivitamin TABLET 1 TAB PO (08:30)
[2023-12-23] MEDS: polyethylene glycoL 3350 17 GM POWD.PACK PO (08:30)
[2023-12-23] MEDS: 0.9 % Sodium Chloride Flush 3 ML SYRINGE IVFLUSH ×3 (08:31→20:38)
[2023-12-23] MEDS: Furosemide 40 MG TABLET PO (08:31)
[2023-12-23] MEDS: Apixaban 2.5 MG TABLET PO ×2 (08:31→20:37)
[2023-12-23] MEDS: Acetaminophen 325 MG TABLET 650 MG PO (08:32)
--- NOTE | 2023-12-23 11:06 | P.PNOP_ITS ---
Subjective Subjective Date of Service: 12/23/23 Principal diagnosis: right hip pain Interval history: 83 YO M s/p R CHERYLE revision DOS 12/18/23 Patient resting comfortably in chair Pain well controlled Has been getting OOB with PT, reports that he walked 5 times yesterday Patient states that he has experiencing some tightness in the right hip, but no pain at this time no acute complaints or concerns Physical Exam 2 Vital Signs: Vital Signs: Last Vital Signs Temp 98.1 F 12/23/23 08:00 Pulse 70 12/23/23 08:00 Resp 20 12/23/23 08:00 BP 157/65 H 12/23/23 08:00 Pulse Ox 100 12/23/23 08:00 O2 Del Method Room Air 12/23/23 08:00 O2 Flow Rate 2 12/20/23 19:10 Oxygen Flow Rate 4 12/19/23 20:56 BMI result Body Mass Index 25.5 Extrem: Other: Dressing on R hip clean, dry, intact No erythema or evidence of infection No tenderness to gentle palpation Compartments soft, nontender Distal sensation intact Capillary refill brisk Procedures Date of Service Date of Service: 12/23/23 Progress Note: A&P Assessment and plan (1) S/P revision of total hip: Status: Acute Plan Continue with pain management Continue anticoagulation with eliquis Continue to monitor H/H for potential need for transfusion, H/H improved yesterday Continue with PT PT recommends STR upon d/c COntinue with all other recs per Medicine Time Spent With Patient Time: Total time managing care of this patient today ____ minutes. Quality Stroke Does the patient have a stroke diagnosis?: No VTE Prior VTE?: No VTE Risk Level:: Medical - moderate - high VTE Device Contraindication: Treatment Not Indicated VTE Drug Contraindication: N/A - Med Ordered
[2023-12-23] MEDS: Milk of Magnesia 30 ML ORAL.SUSP PO (11:12)
--- NOTE | 2023-12-23 13:14 | HO.PM.IMPN ---
Subjective Subjective Date of Service: 12/23/23 Interval History: Being followed for right hip surgery status post revision Offers no acute complaints good pain control, no lightheadedness, no dizziness, tolerating diet no nausea, no vomiting, no abdominal pain, no bowel movement. Review of Systems All other system reviewed and are negative Physical Exam Vital Signs: Vital Signs: Last Vital Signs Temp 97.0 F 12/23/23 12:00 Pulse 70 12/23/23 12:00 Resp 16 12/23/23 12:00 BP 170/76 H 12/23/23 12:00 Pulse Ox 100 12/23/23 12:00 O2 Del Method Room Air 12/23/23 12:00 O2 Flow Rate 2 12/20/23 19:10 Oxygen Flow Rate 4 12/19/23 20:56 BMI result Body Mass Index 25.5 Const: Other: General awake alert x3, in no acute distress. Neck no JVD. CVS regular rate rhythm, Respiratory lungs clear to auscultation, no respiratory distress, no wheeze, no rhonchi. Gastrointestinal abdomen soft, non tender, bowel sounds audible Extremities no edema. Right hip incision site dressing in place, no bruising, no bleeding Skin no rash Psych appropriate affect Objective Data Active Medications Acetaminophen (Acetaminophen 325 Mg Tablet) 650 mg PO Q6H PRN PRN Reason: Pain, Mild (Pain Scale 1-3), fever or headache Last Admin: 12/23/23 08:32 Dose: 650 mg Documented By: MILADYS Apixaban (Apixaban 2.5 Mg Tablet) 2.5 mg PO BID [facility] Last Admin: 12/23/23 08:31 Dose: 2.5 mg Documented By: MILADYS Calcium Carbonate (Calcium Carbonate 750 Mg Tab.Chew) 750 mg PO Q4H PRN PRN Reason: Heartburn Carvedilol (Carvedilol 6.25 Mg Tablet) 6.25 mg PO BID [facility]; Protocol Last Admin: 12/23/23 08:30 Dose: 6.25 mg Documented By: MILADYS Docusate Sodium (Docusate Sodium 100 Mg Capsule) 100 mg PO BID [facility] Last Admin: 12/23/23 08:30 Dose: 100 mg Documented By: MILADYS Furosemide (Furosemide 40 Mg Tablet) 40 mg PO DAILY [facility]; Protocol Last Admin: 09/08/24 08:31 Dose: 40 mg Documented By: MILADYS Magnesium Hydroxide (Milk Of Magnesia 30 Ml Oral.Susp) 30 ml PO DAILY PRN PRN Reason: Constipation Last Admin: 12/23/23 11:12 Dose: 30 ml Documented By: MILADYS Melatonin (Melatonin 3 Mg Tablet) 6 mg PO BEDTIME PRN PRN Reason: Insomnia Multivitamins/Vitamin C (Multivitamin Tablet) 1 tab PO DAILY [facility] Last Admin: 12/23/23 08:30 Dose: 1 tab Documented By: MILADYS Ondansetron HCl (Ondansetron Hcl 4 Mg/2 Ml Vial) 4 mg IVPUSH Q8H PRN PRN Reason: Nausea and Vomiting Oxycodone HCl (Oxycodone Hcl Immed Release 5 Mg Tablet) 5 mg PO Q6H PRN PRN Reason: Pain, Severe (Pain Scale 7-10) Polyethylene Glycol (Polyethylene Glycol 3350 17 Gm Powd.Pack) 17 gm PO DAILY [facility] Last Admin: 12/23/23 08:30 Dose: 17 gm Documented By: MILADYS Sodium Biphosphate/Sodium Phosphate (Sodium Phosphate,[place]-Dibasic 133 Ml Enema) 133 ml [place] ONCE PRN PRN Reason: Constipation Last Admin: 12/17/23 14:22 Dose: 133 ml Documented By: JHONNY Sodium Chloride (0.9 % Sodium Chloride Flush 3 Ml Syringe) 3 ml IVFLUSH QSHIFT [facility] Last Admin: 12/23/23 08:31 Dose: 3 ml Documented By: MILADYS Labs 12/22/23 05:56 12/22/23 05:56 Assessment and Plan (1) S/P revision of total hip: Status: Acute (2) Acute hyperkalemia: Status: Acute (3) CKD (chronic kidney disease): Status: Acute (4) Anemia: Status: Acute (5) Femur fracture: Status: Acute Plan 83-year-old male with a PMH significant for?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 Pt will be admitted to the hospital for treatment of right femur fracture that will require surgical revision by Orthopedics. Right hip periprosthetic fracture Good pain control CT showed nondisplaced longitudinal fracture of right femur s/p right CHERYLE on 12/04/2023, underwent revision of right CHERYLE on 12/17 Good pain control cont. oxycodone /Tylenol Continue stool softeners PT recommend short-term rehab. Acute Hyperkalemia/hypermagnesemia resolved Likely due to ESRD continue hemodialysis Sunday, Sunday,Sunday Follow BMP Acute on chronic microcytic anemia H&H drop likely acute blood loss due to surgery s/p 2 unit packed RBC hematocrit improved , iron studies consistent with anemia of inflammatory disease likely due to chronic kidney disease will discuss use of Procrit with Nephrology ESRD on HD M/W/F CAD No chest pain, on Coreg and statin HTN Blood pressure is stable continue Coreg and Lasix HFrEF Not in acute exacerbation, on lasix Full Code DVT Prophylaxis: Eliquis 2.5 mg b.i.d., In my clinical judgment patient will require continued inpatient hospitalization for pain management, anemia and electrolyte abnormality on hemodialysis. Waiting for safe disposition to rehab, case management working for safe discharge. Quality Stroke Does the patient have a stroke diagnosis?: No VTE Prior VTE?: No VTE Risk Level:: Medical - moderate - high VTE Device Contraindication: Treatment Not Indicated VTE Drug Contraindication: N/A - Med Ordered
[2023-12-24 04:00] VITALS: BP 160/55; PULSE 69; RESP 20; TEMP 36.9; O2SAT 99
[2023-12-24 07:51] VITALS: BP 122/57; PULSE 77; RESP 20; TEMP 36.2; O2SAT 99
[2023-12-24] MEDS: carvediloL 6.25 MG TABLET PO (08:25)
[2023-12-24] MEDS: Furosemide 40 MG TABLET PO (08:25)
[2023-12-24] MEDS: Docusate Sodium 100 MG CAPSULE PO (08:25)
[2023-12-24] MEDS: 0.9 % Sodium Chloride Flush 3 ML SYRINGE IVFLUSH (08:26)
[2023-12-24] MEDS: Multivitamin TABLET 1 TAB PO (08:26)
[2023-12-24] MEDS: Apixaban 2.5 MG TABLET PO (08:26)
[2023-12-24] MEDS: Acetaminophen 325 MG TABLET 650 MG PO (08:32)
--- NOTE | 2023-12-24 10:37 | MHC.CM.PN ---
CM met with Patient at bedside, in HD and he has accepted [facility] bed [facility] HD bed offer. IMM addressed with Patient (original was given to Patient and a copy has been placed on the chart).
--- NOTE | 2023-12-24 12:31 | MHC.CM.PN ---
Patient has been medically cleared for dc to SNF/STR today. Patient will dc to [facility], with onsite HD, today at 6PM, via [facility]. IMM addressed earlier today with Patient, at bedside during HD. CM left a detailed message for Patient's Brother/Geoff at [phone], informing him of the dc plan.
--- NOTE | 2023-12-24 13:24 | P.PNNP_ITS ---
Subjective Subjective Date of Service: 12/24/23 Principal diagnosis: right hip pain Interval history: Seen and examined on HD today Physical Exam 2 Vital Signs: Vital Signs: Last Vital Signs Temp 97.2 F 12/24/23 07:51 Pulse 77 12/24/23 07:51 Resp 20 12/24/23 07:51 BP 122/57 L 12/24/23 07:51 Pulse Ox 99 12/24/23 07:51 O2 Del Method Room Air 12/24/23 07:51 O2 Flow Rate 2 12/20/23 19:10 Oxygen Flow Rate 4 12/19/23 20:56 BMI result Body Mass Index 25.5 Const: Other: General awake alert x3, in no acute distress. Neck no JVD. CVS regular rate rhythm, Respiratory lungs clear to auscultation, no respiratory distress, no wheeze, no rhonchi. Gastrointestinal abdomen soft, non tender, bowel sounds audible Extremities no edema. Right hip incision site bleeding noted Skin no rash Psych appropriate affect General: cooperative, healthy appearing, no acute distress, alert and awake Nutritional Appearance: well nourished Orientation/consciousness: patient oriented x3 Limitations: no limitations and No language barrier HEENT: Head: Yes normal to inspection and Yes atraumatic Ears: hearing grossly normal bilaterally and external ears normal General nose exam: Normal external nose present, no nasal discharge noted and no epistaxis Face and sinus: Yes normal facial exam, No abrasion and No laceration Mouth: Normal oral and palatal mucosa present, no drooling and no muffled voice Eyes: General: appearance normal, both eyes and all related structures P eriorbital: periorbital findings normal Eyelids: Yes eyelids normal C onjunctivae: conjunctivae normal Pupils: Equal, round and reactive pupils present EOM: EOMs intact bilaterally Neck: Neck: Yes normal visual inspection, Yes full ROM and Yes no lymphadenopathy Chest: Chest palpation & inspection: normal inspection of the chest Resp: Effort & Inspection: normal respiratory effort and able to speak in complete sentences Cardio: Rate: regular rate Peripheral pulses: Peripheral pulses 2+ throughout GI: Inspection: Yes normal to inspection Palpation (GI): Soft to palpation Back/Spine/Pelvis: Other: significant pain of the right thigh with movement / rotation / pressure of the right foot Skin: General skin exam: no rashes or lesions noted Neuro: General: patient oriented x3 and moves all extremities Cranial nerves: Yes Equal, round and reactive pupils present Cognition (Neuro): n ormal cognition Extrem: Other: bandage saturated. [place] intact. No erythema or effusion. Calf supple nontender. Neurovascularly intact. General: Yes normal to inspection, Yes full ROM and Yes capillary refill normal Psych: Appearance: grossly normal Mental Status: mental status grossly normal Affect: normal affect Attitude: cooperative Thought process: N ormal thought process present Thought content: Normal thought content present Insight: Good insight present (Psych) Objective Data Labs 12/22/23 05:56 12/22/23 05:56 Procedures Date of Service Date of Service: 12/24/23 Assessment & Plan Assessment and plan (1) ESRD (end stage renal disease) on dialysis: Status: Acute Plan ESRD: mwf Hip Fx s/p repair 12/03 now s/p revision Anemia: drop in Hb improved after xfusiuon REC: cont HD TTS, going to rehab ? later todfay outopt HD orders sent to outpt HD unit Time Spent With Patient Time: Total time managing care of this patient today ____ minutes. Progress Note: Quality Stroke Does the patient have a stroke diagnosis?: No
[2023-12-24 13:41] LABS: HBS Num1 177.43 mIU/mL (0-7.99); HBc Num1 0.07 S/CO (0.00-0.79); HBsAGNum1 0.27 S/CO (0.00-0.99); Hepatitis B Core Antibody Nonreactive (Nonreactive); Hepatitis B Surface Antigen Negative (Negative); ~Hepatitis B Surface Antibody REACTIVE (Nonreactive)
[2023-12-24 14:00] VITALS: BP 112/52; PULSE 71; RESP 20; TEMP 36.5; O2SAT 98
--- NOTE | 2023-12-24 15:01 | PM.DS ---
DS: Providers Provider Date of Service: 12/24/23 Date of admission: 12/14/23 17:32 Date of discharge: 12/24/23 Primary care physician: Edwar Trujillo MD Consults: 12/14/23 17:28 Consult to Nephrology Routine Consulting Provider: Lizzie Means Reason for consultation: Needs HD today due to missed dialysis 12/14/23 17:39 Consult to Orthopedics Routine Consulting Provider: [facility] Reason for consultation: Longitudinal femur fracture s/p CHERYLE 12/03 DS: Diagnosis Discharge Diagnosis (1) ESRD (end stage renal disease) on dialysis: Status: Acute DS: Summary Hospital Course Hospital Course: History of presenting illness: Date of Service: 12/14/23 Attending physician on admission: Ana Juares Chief Complaint: Right hip pain Pt is an 83-year-old male with a PMH significant for?ESRD on hemodialysis M/W/F, HFrEF, aortic stenosis, CAD s/p cardiac cath (2020), pacemaker in place, HLD, HTN, cardiomyopathy, anemia of chronic disease, diet-controlled diabetes type 2, and avascular necrosis with recent right total hip arthroplasty on 12/04/2023 here at [facility] who presents to the ED for evaluation of right hip pain worsening this morning. Patient was recently discharged from the hospital last week after receiving a right CHERYLE on 12/04/2023. Reports began experiencing right hip pain on Sunday into Sunday of this week after he stopped taking his opioid pain medication over the weekend. During Pt he found that his right leg was not as strong as it was the previous week. This morning pain and right hip had significantly increased and patient was unable to to ambulate or tolerate weight-bearing on his right leg. Called Dr. Pleitez's office who told him to come to the ED for further evaluation. Patient denies fall or trauma to the area. Denies any other acute medical complaints. No numbness or tingling in extremities. Denies fever, chills, nausea, vomiting, abdominal pain. No chest pain/pressure, palpitations. Denies orthopnea. No increased lower leg edema. Denies shortness or breath or difficulty breathing. In the ED pt was hypertensive up to 167/64. Labs were significant for stable anemia of 10.5/28.8, potassium 5.7, BUN 83, creatinine 7.70, and magnesium 2.8. Tested negative for COVID, flu, and RSV. Hip and pelvis x-ray showed no acute appearing fracture or dislocation. CT of right femur found nondisplaced longitudinal fracture along medial aspect of proximal femur. Also found collection posterior to greater trochanter proximal femur, possible postsurgical change. Pt was treated with oxycodone, morphine, and ondansetron. Pt will be admitted to the hospital for treatment of right femur fracture that will require surgical revision by Orthopedics. Hospital course: 83-year-old male with a PMH significant for?ESRD on hemodialysis M/W/F, HFrEF, aortic stenosis, CAD s/p cardiac cath (2020), pacemaker in place, HLD, HTN, cardiomyopathy, anemia of chronic disease, diet-controlled diabetes type 2, and avascular necrosis with recent right total hip arthroplasty on 12/04/2023 here at [facility] presented to the ED for evaluation of right hip pain and noted to have right femur fracture therefore admitted to hospital with a diagnosis of :. Right hip periprosthetic fracture, admitted to intermediate care unit,CT showed nondisplaced longitudinal fracture of right femur, s/p right CHERYLE on 12/04/2023, underwent revision of right CHERYLE on 12/17, post procedure has good pain control, continue oxycodone and Tylenol, now being discharged to short-term rehab to continue physical therapy, noted to have acute on chronic microcytic anemia likely due to acute blood loss related to surgery, treated with 2 units of packed RBC hematocrit improved, and remained stable iron studies consistent with anemia of inflammatory disease, likely due to chronic kidney disease, recommend follow-up with Nephrology for Procrit. History of end-stage renal disease on hemodialysis Sunday and Sunday noted to have acute hyperkalemia and hypo magnesemia, treated with Lokelma and hemodialysis electrolyte abnormality resolved continue hemodialysis at rehab In regard to coronary artery disease recommend to continue Coreg and statin, blood pressure well controlled on current medications, no acute heart failure noted continue Lasix home dose Time Attestation Discharge Coordination Time (in mins): 38 Quality: Safe Use of Opioids Does Pt have an Active Cancer Diagnosis on the Problem List?: No Quality: Stroke Does the patient have a stroke diagnosis?: No Physical Exam Vital Signs: Vital Signs: Last Vital Signs Temp 97.7 F 12/24/23 14:00 Pulse 71 09/09/24 14:00 Resp 20 12/24/23 14:00 BP 112/52 L 12/24/23 14:00 Pulse Ox 98 12/24/23 14:00 O2 Del Method Room Air 12/24/23 14:00 O2 Flow Rate 2 12/20/23 19:10 Oxygen Flow Rate 4 12/19/23 20:56 BMI result Body Mass Index 25.5 Const: Other: General awake alert x3, in no acute distress. Neck no JVD. CVS regular rate rhythm, Respiratory lungs clear to auscultation, no respiratory distress, no wheeze, no rhonchi. Gastrointestinal abdomen soft, non tender, bowel sounds audible Extremities no edema. Right hip incision site dressing in place, no bruising, no bleeding Skin no rash Psych appropriate affect DS: Data Data Completed and Pending Completed studies during hospitalization [Text1]: Procedures Performance of Urinary Filtration, Intermittent, Less than 6 Hours Per Day (12/04/23) Replacement of Right Hip Joint with Ceramic Synthetic Substitute, Uncemented, Open Approach (12/04/23) Labs on day of discharge: Laboratory Results - last 24 hr 12/24/23 12:52 Hep Bs Antigen Negative Hep Bs Antibody REACTIVE Hep B Core Total Ab Nonreactive Discharge Plan Discharge Anticipated Discharge Date/Time: 12/24/23 10:45 Patient Disposition: Xfer [facility] Discharge Diagnosis: Right hip periprosthetic fracture Acute hyperkalemia Acute on chronic microcytic anemia Referrals: Jairo Finch [Outside] - 1 Week Edwar Trujillo MD [Primary Care Provider] - 1 Week Brian Bajwa PA-C [Physician [place]] - 2 Weeks (01/03/24 11:30 [facility] Brian Bajwa PA-C ) Discharge Medications: New Eliquis 2.5 mg Tablet 2.5 mg PO BID Qty: 74 0RF melatonin 3 mg Tablet 6 mg PO BEDTIME PRN (Reason: Insomnia) Qty: 20 0RF polyethylene glycol 3350 17 gram Powder In Packet 17 g PO DAILY Qty: 30 0RF sennosides [Senna Lax] 8.6 mg Tablet 17.2 mg PO Q24H PRN (Reason: constipation) Qty: 30 0RF Continued (DME[facility] See Rx Instructions .MEDSUPPLY Qty: 1 0RF Rx Instructions: Folding Front wheeled walker multivitamin Tablet 1 tab PO DAILY atorvastatin 10 mg Tablet 10 mg PO BEDTIME furosemide 40 mg tablet 40 mg PO DAILY carvedilol 6.25 mg tablet 6.25 mg PO BID acetaminophen 325 mg Tablet 650 mg PO Q6H PRN (Reason: Pain, Mild (Pain Scale 1-3), fever or headache) 30 Days Qty: 240 0RF oxycodone 5 mg tablet 5 mg PO Q4H PRN (Reason: pain (scale score 4-6)) 7 Days Qty: 42 0RF Rx Instructions: Partial Fill upon patient request. (DME) lancets 33 gauge misc See Rx Instructions Not Applicable DAILY Qty: 100 Rx Instructions: As directed (DME) blood sugar diagnostic Strip See Rx Instructions Not Applicable DAILY Qty: 10 Rx Instructions: As directed Discontinued enoxaparin 30 mg/0.3 mL Syringe 30 mg subcut Q24H 42 Days Qty: 12.6 0RF Discharge Orders: Discharge Order (Routine); Ordered 12/24/23 Ordered By: Cj Jeffery Diet: Regular diet Activity on Discharge: Use cane or walker Stand Alone Forms: Patient Portal Discharge page Print Language: Tajik Care Plan Goals: Eliquis started on 12/19/2023 need for total 42 days Continue stool softeners adjust medications to avoid constipation/diarrhea Continue hemodialysis Sunday and Fridays Health Concerns: Continue all home medications as prescribed Plan of Treatment: Physical Therapy for Revision right Total hip arthroplasty: wbat, posterior precautions, gait training, ROM, strength Limit stair climbing No showering, no tub bath-keep dressing clean, dry and intact No driving x6 weeks Continu Eliquis twice a day x 6 weeks Follow up with [facility] in 2 weeks: Assessment: As above
[2023-12-24] MEDS: Milk of Magnesia 30 ML ORAL.SUSP PO (15:02)
[2023-12-24 16:00] VITALS: BP 101/55; PULSE 71; RESP 14; TEMP 36.2; O2SAT 93
--- NOTE | 2024-01-08 07:17 | W.PM.OPN ---
Operative Note Operative Note Date of Service: 12/18/23 Narrative: Date of Service: 12/18/23 Pre-op diagnosis: right femur periprosthetic fracture Post-op diagnosis: same Procedure: Right hip revision, femur only Implants: Kimberly 25mm std conical Modular bahai with 23mm std body and -2.5 36 femoral head Surgeon: Sean Pleitez MD Anesthesia: GETA Was an Force Variation Equipment Tender used for this Procedure?: Yes Force Variation Equipment Tender: Brian Bajwa Estimated blood loss (mL): 250 IV fluids (mL): 750 Pathology: none sent Condition: stable Disposition: PACU Procedure in detail: Patient was brought into the operating room and placed in the right lateral decubitus position. All bony prominences were well padded and the limb was prepped and draped in standard sterile fashion. A time-out was called to identify proper site procedure proper surgeon IV antibiotics and 1 g of tranexamic acid were administered. I began by making a curvilinear incision over the prior incision at the posterolateral aspect of the greater trochanter. Dissection was taken down to the tensor fascia which was incised in line with the incision and a Charnley retractor was placed. Cautery was used to maintain hemostasis. The hip was internally rotated and the external rotators were identified. The prior suture was removed. The capsule was tagged and a dull Hohmann retractor was placed underneath the neck in the hip was dislocated. The femoral stem was removed easily after minimal dissection. There was a fracture just distal to the calcar. The cup was tested and was stable. There was no evidence of infection. I then began reaming for a revision stem. I reamed to a 25 until I heard a high pitched ream and placed a standard stem (155mm x 25mm). This had excellent purchase. I then placed a 23mm body after light reaming of the trochanter. I trialed different heads and was satisfied with a -2.5. Therefore all trials were removed and my final conical porous coated femoral stem and calcar body were placed in standard fashion. The body was tightened to the stem using a force gauge. I re-trialed with the -2.5 head and was satisfied iwth the stability and length. Therfore my final head was inserted and the hep reduced. I then closed the capsule after copious irrigation and then a layered closure of Kobe's fascia with 0 Vicryl, subcuticular with 2-0 Vicryl and the skin with jesu. Patient was placed into a sterile dressing. Patient was extubated brought to the recovery room in stable condition. There were no known complications.
== END 2023-12-24 18:40 | disposition skilled nursing facility (03) | DRG 466 ==
LOC: HO.ED 16:10 → HO.EDOVER 18:02 → HO.IMC 19:09
PROVIDERS: Nurse Practitioner Acute Care; Orthopaedic Surgery; Physician Assistant; Physician Assistant Medical; Admitting Provider Student in an Organized Health Care Education/Training Program; Emergency Provider Emergency Medicine; PCP Family Medicine; Visit Provider Hospitalist
PROC: 0SRR0JA Replacement of Right Hip Joint, Femoral Surface with Synthetic Substitute, Uncemented, Open Approach (ICD-10-PCS; principal; 2023-12-18 16:50)
DX: S72.491A Other fracture of lower end of right femur, initial encounter for closed fracture (principal); N18.6 End stage renal disease; M97.01XA Periprosthetic fracture around internal prosthetic right hip joint, initial encounter; D62 Acute posthemorrhagic anemia; I13.2 Hypertensive heart and chronic kidney disease with heart failure and with stage 5 chronic kidney disease, or end stage renal disease; I50.22 Chronic systolic (congestive) heart failure; E83.41 Hypermagnesemia; I25.10 Atherosclerotic heart disease of native coronary artery without angina pectoris; D63.1 Anemia in chronic kidney disease; X58.XXXA Exposure to other specified factors, initial encounter; I35.0 Nonrheumatic aortic (valve) stenosis; E87.5 Hyperkalemia; E11.22 Type 2 diabetes mellitus with diabetic chronic kidney disease; Z20.822 Contact with and (suspected) exposure to COVID-19; Z95.0 Presence of cardiac pacemaker; Z99.2 Dependence on renal dialysis; Z91.158 Patient's noncompliance with renal dialysis for other reason; Z79.899 Other long term (current) drug therapy
CPT/HCPCS: 0241U; 36415; 72170; 73502; 73700; 80048; 80053; 82728; 82947; 83540; 83735; 84132; 85025; 85027; 86704; 86706; 86850; 86900; 86901; 86923; 87340; 90999; 97116; 97162; 97166; 99285; C1776; J0131; J1170; J1644; J2270; J2405; J2598; J2704; J2795; J3010; P9016

== ENCOUNTER → 2023-12-14 13:10 | Outpatient (BNV) | payer MEDICARE, SELFPAY | PROVIDERS: Emergency Provider Emergency Medicine; PCP Family Medicine; Visit Provider Physician Assistant | DX: Z47.1 Aftercare following joint replacement surgery (principal); Z96.641 Presence of right artificial hip joint | CPT/HCPCS: 27138; 99024; 99499 ==

== ENCOUNTER → 2023-12-14 17:32 | Outpatient (BNV) | payer MEDICARE, SELFPAY | PROVIDERS: Admitting Provider Student in an Organized Health Care Education/Training Program; Emergency Provider Emergency Medicine; PCP Family Medicine; Visit Provider Nurse Practitioner Acute Care | DX: E87.5 Hyperkalemia (principal); M97.01XA Periprosthetic fracture around internal prosthetic right hip joint, initial encounter; S72.91XA Unspecified fracture of right femur, initial encounter for closed fracture; Z96.641 Presence of right artificial hip joint | CPT/HCPCS: 99223; 99232; 99233; 99239 ==

== ENCOUNTER 2024-01-03 10:20 | Outpatient (REF) | payer MEDICARE, SELFPAY ==
--- NOTE | ~2024-01-03 | XR_ITS ---
EXAMINATION: XR HIP, RIGHT CLINICAL INFORMATION: M25.551 - Pain in right hip; right hip revision arthroplasty. COMPARISON: 01/03/2024. TECHNIQUE: 3 views of the right hip. FINDINGS: There is diffuse osteopenia. Right lesser trochanter fracture redemonstrated, no displacement. No additional fractures. No suspicious bone lesion. There has been a total revision right hip arthroplasty. Femoral, and acetabular components are intact and in anatomic alignment. No periprosthetic fracture or evidence of complication. Skin jesu are noted. Mild to moderate degenerative arthrosis noted left hip. Spondylosis noted lower lumbar spine, advanced. Mild degenerative changes bilateral SI joints. Soft tissues demonstrate extensive vascular calcification. Small amount of subcutaneous emphysema remains right hip. XR/XR hip RT min 2V IMPRESSION: 1. Right hip revision arthroplasty without complication. 2. Unchanged nondisplaced fracture lesser trochanter right proximal femur. 3. Osteopenia. Electronically signed by: Stevo Lucas MD 03/15/2024 07:04 PM ME[facility] MANNING
== END 2024-01-03 10:21 | disposition home or self-care (01) ==
LOC: HO.XRAY 10:20
PROVIDERS: PCP Family Medicine; Visit Provider Physician Assistant
DX: Z96.641 Presence of right artificial hip joint (principal)
CPT/HCPCS: 73502; 99212

== ENCOUNTER → 2024-01-03 10:26 | Outpatient (BNV) | payer MEDICARE, SELFPAY | PROVIDERS: PCP Family Medicine; Visit Provider Radiology Diagnostic Radiology | DX: M25.551 Pain in right hip (principal) | CPT/HCPCS: 73502 ==

== ENCOUNTER 2024-01-03 11:19 | Outpatient (AMB) | payer MEDICARE, SELFPAY ==
--- NOTE | 2024-01-03 11:41 | MHC.OFFVIS ---
Intake Visit Reasons: 1st PO S/P rev R CHERYLE 12/18/23 w/NE (per TM) Intake Note: George an 83 year old male who presents today for a post operative visit s/p revision RT CHERYLE on 12/18/23 NE. Patient reports he is doing well, states he has no pain. Allergies cephalexin [From KEFLEX] Allergy (Severe, Verified 01/03/24 11:47) ANGIO EDEMA lisinopril [LISINOPRIL] Allergy (Severe, Verified 01/03/24 11:47) FACIAL EDEMA simvastatin Allergy (Severe, Verified 01/03/24 11:47) renal insufficiency amlodipine Allergy (Mild, Verified 01/03/24 11:47) renal insuff in combo w/ statin rx HPI HPI 1st PO S/P rev R CHERYLE 12/18/23 w/NE (per TM): Details: 83-year-old male who returns to the office today for post-op right CHERYLE revision, 12/18/[address] Pleitez. He states he has no pain and is doing well overall. He has no concerns today. [facility] Medical History Avascular necrosis of bone of right hip Presence of arterial-venous shunt (for dialysis) History of transfusion of packed red blood cells ESRD (end stage renal disease) on dialysis Normally functioning cardiac pacemaker present Essential hypertension Valvular heart disease Chronic heart failure with preserved ejection fraction (HFpEF) Pulmonary hypertension Arthritis Anemia NAVA (dyspnea on exertion) Rhabdomyolysis due to statin therapy Chronic kidney disease Diabetes Atherosclerotic cardiovascular disease Aortic valvular disease Pacemaker CHF (congestive heart failure) HTN (hypertension) Surgical History History of cardiac catheterization (~08/2020) History of tonsillectomy Status cardiac pacemaker S/P excision of lipoma Hx of colonoscopy Family History Father Stroke Mother Stroke Diabetes Social History Household Members: Spouse Housing: Apartment Are you a primary career manager to a significant other at home: No Do you presently have visiting nurse or other home services: Yes (elder services, meals on wheels) Alcohol intake: current Alcohol intake frequency: does not drink Alcohol type: hard liquor Patient Tobacco Use Status: Never used Tobacco Advance Directives Date on File: 04/26/20 service: Yes Current occupational status: retired Current occupation: rt handed Review of Systems Const All systems reviewed & are unremarkable except as noted in HPI and below Physical Exam Extrem Other: Right hip: Incision clean, dry and intact. No redness or drainage. No pain with ROM or hip flexion. NVI. Assessment & Plan Assessment & Plan (1) S/P revision of total hip: Code(s): Z96.649 - Presence of unspecified artificial hip joint Category: Surgical Plan [place] removed, steri strips applied. He will begin to transition to Outpatient PT to continue working on Gait training, ROM and quad strength. No driving for another 4 weeks. He will require ppx abx for dental procedures. He will f/u in 4 weeks, sooner if needed. Orders: Orders XR hip RT min 2V Today M25.551 - Pain in right hip Patient Instructions: Scribed for Brian Bajwa PA-C, by Alber Adamson medical record retrieval specialist, on 01/03/2024 at 11:30 AM EST.? I, Brian Bajwa PA-C, have personally reviewed and agree with the information entered by the scribe. Coding Level of Care Code Global (23225) Diagnoses S/P revision of total hip Z96.649
== END 2024-01-03 12:55 | disposition home or self-care (01) ==
PROVIDERS: PCP Family Medicine; Visit Provider Physician Assistant
DX: Z96.649 Presence of unspecified artificial hip joint (principal)
CPT/HCPCS: 99024

== ENCOUNTER 2024-01-08 14:54 | Outpatient (AMB) | payer MEDICARE, SELFPAY ==
--- NOTE | 2024-01-08 17:09 | A.OFFVIS_ITS ---
Intake Visit Reasons: PO Revision RT CEHRYLE 12/18/23 NE Intake Note: Patient is an 83-year-old male who is status post right CHERYLE revision with Dr. Pleitez, DOS 12/18/2023. The patient presents to the office today complaining of a retained staple in his right hip, states that this has been observed by staff of the rehab where he is currently residing. The patient states that he has no other acute complaints or concerns at this time, and then he feels he is recovering well from his surgery. Allergies cephalexin [From KEFLEX] Allergy (Severe, Verified 01/03/24 11:47) ANGIO EDEMA lisinopril [LISINOPRIL] Allergy (Severe, Verified 01/03/24 11:47) FACIAL EDEMA simvastatin Allergy (Severe, Verified 01/03/24 11:47) renal insufficiency amlodipine Allergy (Mild, Verified 01/03/24 11:47) renal insuff in combo w/ statin rx PFSH Medical History Avascular necrosis of bone of right hip Presence of arterial-venous shunt (for dialysis) History of transfusion of packed red blood cells ESRD (end stage renal disease) on dialysis Normally functioning cardiac pacemaker present Essential hypertension Valvular heart disease Chronic heart failure with preserved ejection fraction (HFpEF) Pulmonary hypertension Arthritis Anemia NAVA (dyspnea on exertion) Rhabdomyolysis due to statin therapy Chronic kidney disease Diabetes Atherosclerotic cardiovascular disease Aortic valvular disease Pacemaker CHF (congestive heart failure) HTN (hypertension) Surgical History History of cardiac catheterization (~08/2020) History of tonsillectomy Status cardiac pacemaker S/P excision of lipoma Hx of colonoscopy Family History Father Stroke Mother Stroke Diabetes Social History Household Members: Spouse Housing: Apartment Are you a primary lawn care worker to a significant other at home: No Do you presently have visiting nurse or other home services: Yes (elder services, meals on wheels) Alcohol intake: current Alcohol intake frequency: does not drink Alcohol type: hard liquor Patient Tobacco Use Status: Never used Tobacco Advance Directives Date on File: 04/26/20 service: Yes Current occupational status: retired Current occupation: rt handed Physical Exam Extrem Other: Well-approximated incision sites on the right hip noted No erythema, ecchymosis, edema noted No evidence of infection No evidence of retained staple at this time, although there is a scab where the patient felt there was a staple Patient is able to ambulate with the aid of a walker Nonantalgic gait noted Distal sensation intact Capillary refill brisk Assessment & Plan Assessment & Plan (1) S/P revision of total hip: Code(s): Z96.649 - Presence of unspecified artificial hip joint Category: Surgical Plan 1. Status post right CHERYLE revision with Dr. Pleitez DOS 12/18/2023 Patient is informed that there is no retained staple in his right hip, and that this was a scab Patient understands this Patient is informed that he should keep previously scheduled follow-up with us for reassessment of his right CHERYLE revision Patient is amenable to this plan Patient will follow-up with previously scheduled appointment on 01/31/[address] Pleitez, sooner with any acute concerns Coding Level of Care Code Global (20679) Diagnoses S/P revision of total hip Z96.649
== END 2024-01-08 17:07 | disposition home or self-care (01) ==
PROVIDERS: PCP Family Medicine; Visit Provider Physician Assistant
DX: Z96.649 Presence of unspecified artificial hip joint (principal)
CPT/HCPCS: 99024

== ENCOUNTER → 2024-01-08 14:54 | Outpatient (BNVA) | payer MEDICARE, SELFPAY | PROVIDERS: PCP Family Medicine; Visit Provider Physician Assistant | DX: Z47.1 Aftercare following joint replacement surgery (principal); Z96.649 Presence of unspecified artificial hip joint | CPT/HCPCS: 99212 ==

== ENCOUNTER 2024-01-31 11:15 | Outpatient (AMB) | payer MEDICARE, SELFPAY ==
--- NOTE | 2024-01-31 11:45 | MHC.OFFVIS ---
Vital Signs 01/31/24 11:52 Height 5 ft 5 in Weight 150 lb BMI 25.0 Intake Visit Reasons: PO- f/u Revision RT CHERYLE 12/18/23 NE-w/xray Intake Note: George is an 83 year old male who presents today for a post operative appointment s/p Right CHERYLE 12/18/23. Patient reports that he is doing well, he has no concerns at this time. Allergies cephalexin [From KEFLEX] Allergy (Severe, Verified 01/31/24 11:52) ANGIO EDEMA lisinopril [LISINOPRIL] Allergy (Severe, Verified 01/31/24 11:52) FACIAL EDEMA simvastatin Allergy (Severe, Verified 01/31/24 11:52) renal insufficiency amlodipine Allergy (Mild, Verified 01/31/24 11:52) renal insuff in combo w/ statin rx HPI HPI PO- f/u Revision RT CHERYLE 12/18/23 NE-w/xray: Details: George is doing well. He is walking comfortably and working on a treadmill. He has no complaints. [facility]LY [facility] Medical History Avascular necrosis of bone of right hip Presence of arterial-venous shunt (for dialysis) History of transfusion of packed red blood cells ESRD (end stage renal disease) on dialysis Normally functioning cardiac pacemaker present Essential hypertension Valvular heart disease Chronic heart failure with preserved ejection fraction (HFpEF) Pulmonary hypertension Arthritis Anemia NAVA (dyspnea on exertion) Rhabdomyolysis due to statin therapy Chronic kidney disease Diabetes Atherosclerotic cardiovascular disease Aortic valvular disease Pacemaker CHF (congestive heart failure) HTN (hypertension) Surgical History History of cardiac catheterization (~08/2020) History of tonsillectomy Status cardiac pacemaker S/P excision of lipoma Hx of colonoscopy Family History Father Stroke Mother Stroke Diabetes Social History Household Members: Spouse Housing: Apartment Are you a primary client care specialist to a significant other at home: No Do you presently have visiting nurse or other home services: Yes (elder services, meals on wheels) Alcohol intake: current Alcohol intake frequency: does not drink Alcohol type: hard liquor Patient Tobacco Use Status: Never used Tobacco Advance Directives Date on File: 04/26/20 service: Yes Current occupational status: retired Current occupation: rt handed Physical Exam Vital Signs: BMI result Body Mass Index 25.0 Extrem Other: No hip pain with range of motion. Normal gait. Results Reviewed Results Reviewed: .rads Right revision CHERYLE in expected post operative position with no hardware complications or evidence of loosening Assessment & Plan Assessment & Plan (1) S/P revision of total hip: Code(s): Z96.649 - Presence of unspecified artificial hip joint Category: Surgical Plan: Doing well status post revision right hip arthroplasty. Continue ambulation as tolerated. May discontinue Lovenox. Follow up in 6 weeks. Orders: Orders XR pelvis 1-2V Today M25.559 - Pain in unspecified hip Coding Level of Care Code Global (58146) Diagnoses S/P revision of total hip Z96.649
[2024-01-31 11:52] VITALS: BMI 25.0
== END 2024-01-31 12:06 | disposition home or self-care (01) ==
PROVIDERS: PCP Family Medicine; Visit Provider Orthopaedic Surgery
DX: Z96.649 Presence of unspecified artificial hip joint (principal)
CPT/HCPCS: 99024

== ENCOUNTER → 2024-01-31 11:42 | Outpatient (BNV) | payer MEDICARE, SELFPAY | PROVIDERS: PCP Family Medicine; Visit Provider Radiology Diagnostic Radiology | DX: M16.12 Unilateral primary osteoarthritis, left hip (principal); Z96.641 Presence of right artificial hip joint | CPT/HCPCS: 72170 ==

== ENCOUNTER → 2024-02-13 23:59 | Outpatient (BNV) | payer MEDICARE, SELFPAY ==
--- NOTE | 2024-02-14 19:53 | MHC.OFFVIS ---
Intake Visit Reasons: Remote device check- [facility] Allergies cephalexin [From KEFLEX] Allergy (Severe, Verified 01/31/24 11:52) ANGIO EDEMA lisinopril [LISINOPRIL] Allergy (Severe, Verified 01/31/24 11:52) FACIAL EDEMA simvastatin Allergy (Severe, Verified 01/31/24 11:52) renal insufficiency amlodipine Allergy (Mild, Verified 01/31/24 11:52) renal insuff in combo w/ statin rx PFSH Medical History Avascular necrosis of bone of right hip Presence of arterial-venous shunt (for dialysis) History of transfusion of packed red blood cells ESRD (end stage renal disease) on dialysis Normally functioning cardiac pacemaker present Essential hypertension Valvular heart disease Chronic heart failure with preserved ejection fraction (HFpEF) Pulmonary hypertension Arthritis Anemia NAVA (dyspnea on exertion) Rhabdomyolysis due to statin therapy Chronic kidney disease Diabetes Atherosclerotic cardiovascular disease Aortic valvular disease Pacemaker CHF (congestive heart failure) HTN (hypertension) Surgical History History of cardiac catheterization (~08/2020) History of tonsillectomy Status cardiac pacemaker S/P excision of lipoma Hx of colonoscopy Family History Father Stroke Mother Stroke Diabetes Social History Household Members: Spouse Housing: Apartment Are you a primary personal care assistant to a significant other at home: No Do you presently have visiting nurse or other home services: Yes (elder services, meals on wheels) Alcohol intake: current Alcohol intake frequency: does not drink Alcohol type: hard liquor Patient Tobacco Use Status: Never used Tobacco Advance Directives Date on File: 04/26/20 service: Yes Current occupational status: retired Current occupation: rt handed Office Procedures Cardiac Device Check Cardiac Device Check Details: Date of service- 02/13/2024 ; Battery life >10 years; normal lead parameters; AP 2.4%; [employer]ES [employer]IVE [employer] >99%; brief AT episodes. Overall normal device function. [id number] Cardiac Device Interrogation, pacemaker Procedure code (CPT) selection complete Assessment & Plan Assessment & Plan (1) Normally functioning cardiac pacemaker present: Code(s): Z95.0 - Presence of cardiac pacemaker Category: Medical (2) Heart block: Code(s): I45.9 - Conduction disorder, unspecified Category: Medical (3) Cardiomyopathy: Code(s): I42.9 - Cardiomyopathy, unspecified Category: Medical Plan x Coding Level of Care Code Procedure Only Diagnoses Normally functioning cardiac pacemaker present Z95.0 Heart block I45.9 Cardiomyopathy I42.9 CPT Codes Cardiac Device Check - Cardiac Device 12: [id number] Cardiac Device Interrogation, pacemaker ([id number])
== END ==
PROVIDERS: PCP Family Medicine; Visit Provider Internal Medicine
DX: I45.9 Conduction disorder, unspecified (principal); I42.9 Cardiomyopathy, unspecified; Z95.0 Presence of cardiac pacemaker
CPT/HCPCS: 93294

== ENCOUNTER 2024-03-04 12:45 | Outpatient (AMB) | payer MEDICARE, SELFPAY ==
[2024-03-04 12:59] VITALS: BMI 25.0
--- NOTE | 2024-03-04 12:59 | MHC.OFFVIS ---
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 Fistula was created 05/24/2020 Left Arm. Pt states it started becoming more frequent over the last few months, prior to that it would only happen on occasion. 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 He originally had a Jarrell type fistula which did not mature he subsequently underwent brachiocephalic fistula creation in May of 2020. In matured up nicely and has been using it since that time. He most recently noted that there was increased bleeding times after removal of needles. He now presents for follow-up evaluation. Of note he is on a Sunday dialysis regimen [facility] Medical History Avascular necrosis of bone of right hip Presence of arterial-venous shunt (for dialysis) History of transfusion of packed red blood cells ESRD (end stage renal disease) on dialysis Normally functioning cardiac pacemaker present Essential hypertension Valvular heart disease Chronic heart failure with preserved ejection fraction (HFpEF) Pulmonary hypertension Arthritis Anemia NAVA (dyspnea on exertion) Rhabdomyolysis due to statin therapy Chronic kidney disease Diabetes Atherosclerotic cardiovascular disease Aortic valvular disease Pacemaker CHF (congestive heart failure) HTN (hypertension) Surgical History History of cardiac catheterization (~08/2020) History of tonsillectomy Status cardiac pacemaker S/P excision of lipoma Hx of colonoscopy Family History Father Stroke Mother Stroke Diabetes Social History Household Members: Spouse Housing: Apartment Are you a primary healthcare financial analyst to a significant other at home: No Do you presently have visiting nurse or other home services: Yes (elder services, meals on wheels) Alcohol intake: current Alcohol intake frequency: does not drink Alcohol type: hard liquor Patient Tobacco Use Status: Never used Tobacco Advance Directives Date on File: 04/26/20 service: Yes Current occupational status: retired Current occupation: rt handed Review of Systems Const All systems reviewed & are unremarkable except as noted in HPI and below Reports no additional complaints ENT Reports Normal hearing present Card Denies chest pain, Denies chest pain at rest, Denies chest pain with activity and Denies pedal edema Resp Denies cough GI Denies abdominal pain Musc Denies abnormal gait, Denies muscle cramps and Denies radiating pain into limb Skin/Breast Denies skin ulcer and Denies wounds Neuro Reports Normal hearing present and Denies abnormal gait Psych Reports no additional complaints Physical Exam Vital Signs: BMI result Body Mass Index 25.0 Const General: cooperative, healthy appearing and comfortable Orientation/consciousness: oriented to person, oriented to place and oriented to time HEENT Head: Yes normal to inspection Neck Neck: Yes normal visual inspection Carotids: no bruits Chest Chest palpation & inspection: normal inspection of the chest Resp Effort & Inspection: normal respiratory effort and able to speak in complete sentences Auscultation: clear to auscultation bilaterally, no crackles, no rales, no rhonchi and no wheezes Cardio Rate: regular rate Rhythm: regular rhythm Heart sounds: S1 normal heart sound present and S2 normal heart sound present Bruits: no carotid bruits Peripheral pulses: Peripheral pulses 2+ throughout GI Inspection: Yes normal to inspection Skin Wounds: no wounds Hair: normal Neuro General: oriented to person, oriented to place and oriented to time Cranial nerves: Yes CN's II-XII intact bilaterally and Yes Normal hearing present Cognition (Neuro): normal cognition Motor exam (neuro): 5/5 motor strength present throughout Extrem Other: Left upper extremity aneurysmal brachiocephalic fistula. Palpable brachial radial ulnar pulses on left upper extremity. General: No clubbing, No cyanosis and No edema Psych Appearance: grossly normal Mental Status: mental status grossly normal Speech and movement: Normal speech and movement present Assessment & Plan Assessment & Plan (1) ESRD (end stage renal disease) on dialysis: Comment: 05/24/2020 - left upper extremity brachiocephalic fistula creation Code(s): N18.6 - End stage renal disease; Z99.2 - Dependence on renal dialysis Category: Medical Plan: In short patient has a left upper extremity fistula. It appears that it is functioning but has had increased bleeding times.. the patient would benefit from a left upper extremity fistulogram with possible angioplasty, stent, and/or atherectomy. This has been discussed in detail with the patient along with risks, benefits, and complications. This includes but is not limited to bleeding, infection, heart attack, need for emergent surgical repair, limb ischemia, blood vessel damage, bleeding, puncture, kidney injury, bruising, allergic reaction, and skin reaction. The patient demonstrates a clear understanding. We will schedule for the next appropriate time. Thank you for allowing us to assist in this patient's care. Coding Level of Care Code Est Pt Level 4 (30650) Complex EM visit Add On G2211 Diagnoses ESRD (end stage renal disease) on dialysis N18.6; Z99.2
== END 2024-03-04 13:26 | disposition home or self-care (01) ==
PROVIDERS: PCP Family Medicine; Visit Provider Surgery Vascular Surgery
DX: N18.6 End stage renal disease (principal); Z99.2 Dependence on renal dialysis
CPT/HCPCS: 99214; G2211

== ENCOUNTER → 2024-03-04 12:45 | Outpatient (BNVA) | payer MEDICARE, SELFPAY | PROVIDERS: PCP Family Medicine; Visit Provider Surgery Vascular Surgery | DX: N18.6 End stage renal disease (principal); Z99.2 Dependence on renal dialysis | CPT/HCPCS: 99212 ==

== ENCOUNTER 2024-03-18 06:16 | Day surgery (SDC) | payer MEDICARE, SELFPAY ==
[2024-03-18] VITALS (7 sets, daily range): BP systolic 115–146; BP diastolic 41–52; PULSE 53–63; RESP 10–16; TEMP 36.1–36.4; O2SAT 99–100; BMI 25.3
[2024-03-18] MEDS: 0.9 % Sodium Chloride 1,000 ML 100 ML IVCONT (07:21)
[2024-03-18 07:31] LABS: Basophils Absolute Auto 0.1 X10*3/uL (0.0-0.2); Basophils Percent Auto 1.1 % (0-2); Eosinophils Absolute Auto 0.2 X10*3/uL (0.0-0.4); Eosinophils Percent Auto 2.9 % (0-4); Hematocrit 31.5 % (42.0-52.0); Hemoglobin 10.4 g/dl (14.0-18.0); Imm Gran Abs Auto 0.05 X10*3/uL (0.00-0.03); Imm Gran Pct Auto 0.8 % (0.0-0.4); Lymphocytes Absolute Auto 0.6 X10*3/uL (1.2-4.9); Lymphocytes Percent Auto 9.7 % (20-40); MANUAL DIFF FLAG NO; Mean Corpuscular Hemoglobin 31.8 pg (27.0-33.0); Mean Corpuscular Volume 96.3 fL (80.0-98.0); Mean Platelet Volume 10.5 fL (9.4-12.4); Monocytes Absolute Auto 0.6 X10*3/uL (0.1-1.2); Neutrophils Absolute Auto 4.7 x10*3/uL (2.0-8.3); Neutrophils Percent Auto 75.5 % (45-73); Platelet Count 128 X10*3/uL (160-400); Red Blood Count 3.27 X10*6/uL (4.60-5.80); Red Cell Distribution Width 15.2 % (11.0-16.0); White Blood Count 6.3 X10*3/uL (4.8-10.8)
[2024-03-18 07:53] LABS: Anion Gap 18 (12-20); Blood Urea Nitrogen 75 mg/dL (9-16); Calcium 9.1 mg/dL (8.4-10.2); Carbon Dioxide 27 mmol/L (22-29); Chloride 98 mmol/L (96-108); Creatinine Clr Calc Pharmacy 8.6; Estimated Glomerular Filt Rate 9; Glucose Random 94 mg/dL (60-115); Potassium 4.3 mmol/L (3.3-5.1); Sodium 139 mmol/L (135-145)
--- NOTE | 2024-03-18 09:30 | W.PM.OPN ---
Operative Note Operative Note Date of Service: 03/18/24 Narrative: Operative note by [facility] Preoperative diagnosis: End-stage renal disease 2. Poorly functioning left upper fistula with excessive bleeding Postoperative diagnosis: Same Procedure:1. Left arm fistulogram 2. Plasty of outflow venous tract Surgeon:Shimon Moe M.D. Can Reforming Machine Operator: Esdras Anesthesia: Local only Specimens: None Drains: None Estimated blood loss: Minimal Indications: 83-year-old gentleman with end-stage renal disease has a left upper extremity fistula. Of late he has been noticing excessive bleeding times from the fistula and poor dialysis. He now presents for fistulogram. The patient has signed the informed consent after reviewing risks, complications, benefits, and alternatives previously discussed with the patient. The patient was given the opportunity to ask any additional questions or voice any concerns. All questions were answered to the patient's satisfaction. Procedure in detail: Left arm was prepped and draped in standard surgical fashion. Under ultrasound guidance left upper extremity fistula was accessed. We placed a precision 5 Namibian sheath. Through this we performed a venous outflow fistulogram. We were able to immediately identify a stenosis in the proximal 3rd of the arm. Once we completed that we placed a Glidewire Advantage. We exchanged out for a 6 Namibian sheath. Once this was accomplished we then initially plasty the stenotic area with a 5 x 30 regular balloon. We subsequently plasty this area with a 6 x 40 drug coated Medtronic Impact DCB. This was brought into position in under 3 minutes and insufflated for a total of 3 minutes in duration. Once this was all done there was still residual stenosis and this was then plasty did with a 7 x 40 balloon. Once this was all done completion angiogram demonstrated good result catheter wire sheath was removed. Pursestring 3-0 nylon stitch was placed at the puncture site. Adequate hemostasis was achieved. Patient tolerated the procedure well. Returned to recovery with stable vitals. Interpretation of films: 1. Ultrasound demonstrated appropriate puncture. Image was saved to PACS. 2. Outflow track had a high-grade stenosis at the proximal 3rd. Centrally no significant stenosis pacemaker site also appear to be well. 3. Completion angiogram demonstrated good result with improvement of outflow tract. This note is constructed using voice recognition software. While every effort has been made to ensure accuracy, cake icer errors may have been included. Thank you for allowing me to participate in the care of your patient. Yours sincerely, Shimon Moe MD, FACS, R.P.V.I.
== END 2024-03-18 14:59 | disposition home or self-care (01) ==
PROVIDERS: PCP Family Medicine; Visit Provider Surgery Vascular Surgery
DX: T82.590A Other mechanical complication of surgically created arteriovenous fistula, initial encounter (principal); Y82.8 Other medical devices associated with adverse incidents; Y92.9 Unspecified place or not applicable; N18.4 Chronic kidney disease, stage 4 (severe); E11.22 Type 2 diabetes mellitus with diabetic chronic kidney disease; I13.0 Hypertensive heart and chronic kidney disease with heart failure and stage 1 through stage 4 chronic kidney disease, or unspecified chronic kidney disease; I50.32 Chronic diastolic (congestive) heart failure; Z99.2 Dependence on renal dialysis; Z95.0 Presence of cardiac pacemaker
CPT/HCPCS: 36415; 36901; 36902; 76937; 80048; 85025; C1725; C1769; C1894; C2623; J1644; J2250; J2310; J3010; Q9967

== ENCOUNTER → 2024-03-18 06:16 | Outpatient (BNV) | payer MEDICARE, SELFPAY | PROVIDERS: PCP Family Medicine; Visit Provider Surgery Vascular Surgery | DX: N18.6 End stage renal disease (principal); T82.590A Other mechanical complication of surgically created arteriovenous fistula, initial encounter | CPT/HCPCS: 20501; 36902; 76080; 76937 ==

== ENCOUNTER 2024-03-20 10:47 | Outpatient (REF) | payer MEDICARE, SELFPAY ==
--- OUTSIDE RECORDS SUMMARY | 2024-03-26 01:43 | XMS_ITS ---
Author Organization [facility] Address [address] [place] [id number] Care Team Providers Care Human Resources Manager Manufacturing Name Role Phone Ronnie OVALLE, Edwar Primary Care Provider UnavailDeven Mora Unavailable [phone] ALLERGIES Allergen (clinical drug ingredient) Drug/Non Drug Allergy documented on EMR Reaction Allergy Type Onset Date Status lisinopril Lisinopril Unknown Drug Allergy Activ e cephalexin Cephalexin Unknown Drug Allergy Activ e carvedilol Carvedilol Unknown Drug Allergy Activ e REASON FOR VISIT Patient presents today for a f/u office visit MEDICATIONS Medication SIG (Take, Route, Frequency, Duration) Notes Start Date End Date Status Atorvastatin Calcium 10 MG 1 tablet Oral ly Once a day Active Furosemide 40 1 tab Oral once a day Active Collagen Fenestrated (Porcine) 01/30/2023 Active Furosemide 80 MG Oral for 30 A ctive Coreg 12.5 MG 1 tablet with food O rally Twice a day for 30 day(s) 01/30/2023 Active Multivitamin - 1 tablet Orally once a day Active Collagen Active Aspirin 81 MG 1 tablet Orally Once a day Active Ensure - as directed Orally 01/30/2023 Active SOCIAL HISTORY Sex Assigned At : Social History Observation Description Sex Assigned At Unknown Alcohol Screen Question Answer Notes Did you have a drink containing alcohol in the p ast year? No Points 0 Interpretation Negative VITAL SIGNS BMI 25.06 kg/m2 01/30/2023 Blood pressure systolic 000 mm Hg 01/31/20 23 Blood pressure diastolic 00 mm Hg 023 Height 67 in 01/30/2023 Temperature 98.2 degrees Fahrenheit 01/31/20 23 Weight 160 lbs 01/30/2023 Encounters Encounter Location Date Provider Diagnosis [facility] [address] [place] [address] 01/30/2023 Deven Mccallum Heme + stool R19.5 ; Anemia, unspecified type D64.9 and History of adenomatous polyp of colon Z86.010 ASSESSMENTS Encounter Date Diagnosis Assessment Notes Treatment Notes Treatment Clinical Notes 01/30/2023 Heme + stool (ICD-10 - R19.5) 01/30/2023 Anemia, unspecified type (ICD-10 - D64.9) 01/30/2023 History of adenomatous polyp of colon (ICD-10 - Z86.010) PLAN OF TREATMENT Next Appt Details Follow Up: Spring 2023, Reas on: Progress Notes * Examination Category Sub-Category Detail Notes General Examination GENERAL APPEARANCE: pleasant , well nourished, well developed, in no acute distress EYES: sclera non-icteric NECK/THYROID: no cervical lymphade nopathy, neck supple HEART: S1, S2 normal LUNGS: clear to auscultatio n bilaterally ABDOMEN: normal bowel sounds, no guarding or rigidity, no hepatosplenomegaly, no masses palpable, soft, nontender, nondistended. NEUROLOGIC: alert and oriented SKIN: nonjaundiced, no spi radu angiomata. EXTREMITIES: no edema ORAL CAVITY: mucosa moist
--- OUTSIDE RECORDS SUMMARY | 2024-03-26 01:43 | XMS_ITS ---
Author Organization [facility] Address [address] [place] [address] Care Team Providers Care Processing Engineer Name Role Phone Edwar Trujillo MD Primary Care Provider Unavailab Deven Brady Unavailable [phone] ALLERGIES Allergen (clinical drug ingredient) Drug/Non Drug Allergy documented on EMR Reaction Allergy Type Onset Date Status lisinopril Lisinopril Unknown Drug Allergy Activ e cephalexin Cephalexin Unknown Drug Allergy Activ e carvedilol Carvedilol Unknown Drug Allergy Activ e MEDICATIONS Medication SIG (Take, Route, Frequency, Duration) Notes Start Date End Date Status Collagen Fenestrated (Porcine) 01/30/2023 Active Ensure - as directed Orally 01/30/2023 Active Coreg 6.25 MG 1 tablet with food O rally Twice a day 01/30/2023 Active Furosemide 40 1 tab Oral once a day Active Multivitamin - 1 tablet Orally once a day Active Atorvastatin Calcium 10 MG 1 tablet Oral ly Once a day Active Collagen Active Aspirin 81 MG 1 tablet Orally Once a day Active SOCIAL HISTORY Sex Assigned At : Social History Observation Description Sex Assigned At Unknown Alcohol Screen Question Answer Notes Did you have a drink containing alcohol in the p ast year? No Points 0 Interpretation Negative VITAL SIGNS BMI 25.06 kg/m2 07/31/2023 Blood pressure systolic 00 mm Hg 07/31/19 24 Blood pressure diastolic 00 mm Hg 024 Height 67 in 07/31/2023 Weight 160 lbs 07/31/2023 Encounters Encounter Location Date Provider Diagnosis [facility] [address] [place] [address] 07/31/2023 Deven Mccallum Heme + stool R19.5 ; Anemia, unspecified type D64.9 and History of adenomatous polyp of colon Z86.010 ASSESSMENTS Encounter Date Diagnosis Assessment Notes Treatment Notes Treatment Clinical Notes 07/31/2023 Heme + stool (ICD-10 - R19.5) 07/31/2023 Anemia, unspecified type (ICD-10 - D64.9) 07/31/2023 History of adenomatous polyp of colon (ICD-10 - Z86.010) PLAN OF TREATMENT Next Appt Details Follow Up: 2023, Reaso n: Progress Notes * Examination Category Sub-Category Detail [...]
--- OUTSIDE RECORDS SUMMARY | 2024-03-26 01:43 | XMS_ITS | Patient Health Record ---
Author Organization [facility] Address [address] [place] [phone] Care Team Providers Care Finger Grip Machine Operator Name Role Phone Ronnie OVALLE, Edwar Primary Care Provider Deven Richter Unavailable [phone] ALLERGIES Allergen (clinical drug ingredient) Drug/Non Drug Allergy documented on EMR Reaction Allergy Type Onset Date Status lisinopril Lisinopril Unknown Drug Allergy Activ e cephalexin Cephalexin Unknown Drug Allergy Activ e REASON FOR REFERRAL No Information MEDICATIONS Medication SIG (Take, Route, Frequency, Duration) Notes Start Date End Date Status Ensure - as directed Orally 01/30/2023 Active Collagen Active Aspirin 81 MG 1 tablet Orally Once a day Active Losartan Potassium 25 MG 1 tablet Orally Once a day for 30 day(s) Active Coreg 6.25 MG 1 tablet with food O rally Twice a day for 30 day(s) Active Furosemide 40 1 tab Oral once a day Active Multivitamin - 1 tablet Orally once a day Active Atorvastatin Calcium 10 MG 1 tablet Oral ly Once a day Active IMMUNIZATIONS Vaccine Route Administration Date Status Comme nts Influenza Unknown 12/15/2017 Administered Influenza Unknown 12/16/2018 Administered Influenza Unknown 12/16/2019 Administered Influenza Unknown 12/15/2020 Administered Influenza Unknown 01/14/2022 Administered SOCIAL HISTORY Sex Assigned At : Social History Observation Description Sex Assigned At Unknown Alcohol Screen Question Answer Notes Did you have a drink containing alcohol in the p ast year? No Points 0 Interpretation Negative PROBLEMS Problem Type ICD Code Onset Dates Problem Status W/U Status Risk SNOMED Code Notes Problem Encounter for screening colonoscopy (Z12.11) Active confirmed Screening colonoscopy (459398796) Problem Encounter for screening for malignant neoplasm of colon (Z12.11) Active confirmed 152173832 Problem History of adenomatous polyp of colon (Z86.010) Active confirmed 863428747 Problem Colon polyps (K63.5) Active confirmed Polyp of colon (disorder) (21963179) Problem Tubular adenoma of colon (D12.6) Active confirmed Tubular wilman noma of colon (960834700) Problem Heme + stool (R19.5) Active confirmed 97810456 Problem Hx of colonic polyps (Z86.010) Active confirmed History of polyp of colon (232633317) Problem Anemia (D64.9) Active confirmed Anemia (654628726) Problem Gallstones (K80.20) Active confirmed Gallstones (744833509) Problem Long-term use of aspirin therapy (Z79.82) Active confirmed 438643819 Problem Anemia, unspecified type (D64.9) Active confirmed 896674110 Problem Adenoma of transverse colon (D12.3) Active confirmed 329871071 Problem 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 76702491 VITAL SIGNS Blood pressure diastolic 00 mm Hg 02/26/2024 Height 5 ft 5 in in 02/26/2024 Blood pressure systolic 00 mm Hg 02/26/2024 Weight 148 lbs 02/26/2024 BMI 24.63 kg/m2 02/26/2024 Encounters Encounter Location Date Provider Diagnosis [facility] [address] [place] [phone] 07/31/2023 Deven Mccallum Heme + stool R19.5 ; Anemia, unspecified type D64.9 and History of adenomatous polyp of colon Z86.010 [facility] [address] [place] [phone] 02/26/2024 Deven Mccallum Anemia, unspecified type D64.9 ; Adenoma of appendix D12.1 ; History of adenomatous polyp of colon Z86.010 and Gallstones K80.20 ASSESSMENTS Encounter Date Diagnosis Assessment Notes Treatment Notes Treatment Clinical Notes 07/31/2023 Heme + stool (ICD-10 - R19.5) 07/31/2023 Anemia, unspecified type (ICD-10 - D64.9) 02/26/2024 Anemia, unspecified type (ICD-10 - D64.9) 02/26/2024 Adenoma of appendix (ICD-10 - D12.1) 07/31/2023 History of adenomatous polyp of colon (ICD-10 - Z86.010) 02/26/2024 History of adenomatous polyp of colon (ICD-10 - Z86.010) 02/26/2024 Gallstones (ICD-10 - K80.20) PLAN OF TREATMENT Future Test Test Name Order Date COLONOSCOPY 07/02/2013 COLONOSCOPY 03/21/2018 COLONOSCOPY 08/21/2018 COLONOSCOPY 11/13/2019 COLONOSCOPY 03/25/2020 Insurance Providers Payer Name Payer Address Payer Phone Subscriber Number Group Number Insured Name Patient Relationship to Insured Coverage Start Date Coverage End Date [place] [address] [place] [address] [id number] JONA FATOU Self - patient is the insured MEDICAL (GENERAL) HISTORY Medical History History ICD Code Colonoscopy in 2002 with the removal of 2 tubular adenomas Colonoscopy 02/11/2008--1 tubular adenom a removed HTN Hyperlipidemia Hospitalized end of 06/13/13 with fluid retention, elevated CPK, and some renal insufficiency--due to Simvastatin and Amlodipine--he was treated and improved--he did not have a SD Denies SD,DM,CVA,Lung disease Pacemaker 02/24/2014 Colonoscopy in 08/2013--tubul ar adenomas removed, one of which was approx. 1.5cm Renal insufficiency--sees Dr Dodie Burgess now Dr. Gonzalez--BUN 96 and Cr 3.73 on 11/04/2019--he is going to be scheduled for an AV fistula placement in early 2020 for eventual HD Colonoscopy 04/2018-flat > 3 cm adenoma overlapping a fold removed from the transverse colon and site marked with ink Colonoscopy 10/2018--area of large polyp near ink markings looked good without residual polyp; single small tubular adenoma removed from elsewhere Gallstones on U/S from 2013 Colonoscopy in 01/2020 with a pedunculated adenoma seen in the appendiceal orifice--biopsied several times and then a clip was placed on the stalk--it was not removed due to the location Colonoscopy in April revealed some probable residual polyp tissue in the appendiceal orifice but I was unable to get any adequate biopsy specimens from but given its difficult location, and certainly I was not able to remove it. Cardiac cath in 08/2020---- reports no sig. CAD Gallstones seen on CT scan-asymptomatic. D/W patient at the 02/26/24 OV Surgical History Surgery Date(Month/Year) Broken jaw Pacemaker 02/24/14 Right shoulder cyst removal- Dr. Mireles 11/04/2019 AV Fistula x [address] Moe - 05/2020 Right hip replacement 11/2023 Femur fracture 1 week after above sugery 11/2023
--- OUTSIDE RECORDS SUMMARY | 2024-03-26 01:43 | XMS_ITS ---
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 MEDICATIONS Medication SIG (Take, Route, Frequency, Duration) Notes Start Date End Date Status Ensure - as directed Orally 01/30/2023 Active Furosemide 40 1 tab Oral once a day Active Atorvastatin Calcium 10 MG 1 tablet Oral ly Once a day Active Collagen Active Aspirin 81 MG 1 tablet Orally Once a day Active Losartan Potassium 25 MG 1 tablet Orally Once a day for 30 day(s) Active Coreg 6.25 MG 1 tablet with food O rally Twice a day for 30 day(s) Active Multivitamin - 1 tablet Orally once a day Active SOCIAL HISTORY Sex Assigned At : Social History Observation Description Sex Assigned At Unknown Alcohol Screen Question Answer Notes Did you have a drink containing alcohol in the p ast year? 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
--- OUTSIDE RECORDS SUMMARY | 2024-03-26 01:43 | XMS_ITS | Clinical Summary ---
Author Organization Unknown Care Team Providers Care Plastic Die Maker Apprentice Name Role Phone MARCELLE OVALLE, KAYLA Unavailable Unavailable MANDA RN, KIP Unavailable Unavailab elaine ROSE LPN, MARY Unavailable Unavailable EMMA PT, SYLVIA Unavailable Unavailable FRANCESCA MARKER MACHINE ATTENDANT, TORSTEN Unavailable Unavailable SPAASHIA OT, JUANIS Unavailable Unavailable CONDINO PRESS SERVICE READER/VAZQUEZ, KEVIN Unavailable Unav ailable Payers Payer Name Policy Type Policy Number Effective Date Expira tion Date MEDICARE.NGS.PDGM [id number] Problems Condition Name Condition Details Condition Category Status Onset Date Resolution Date Last Treatment Date Treating Clinician Comments UNSP FRACTURE OF RIGHT FEMUR, SUBS FOR CLOS FX W ROUTN HEAL Active 12-26 00:00: 00 PERIPROSTH FRACTURE AROUND INTERNAL PROSTH R HIP JT, SUBS Active 12-26 00:00: 00 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 Active 04-16 00:00: 00 UNSPECIFIED SYSTOLIC (CONGESTIVE) HEART FAILURE Active 04-16 00:00: 00 TYPE 2 DIABETES MELLITUS W DIABETIC CHRONIC KIDNEY DISEASE Active 04-16 00:00: 00 END STAGE RENAL DISEASE Active 04-16 00:00: 00 ANEMIA IN CHRONIC KIDNEY DISEASE Active 04-16 00:00: 00 ATHSCL HEART DISEASE OF [place] CORONARY ARTERY W/O ANG PCTRS Active 04-16 00:00: 00 SICK SINUS SYNDROME Active 04-16 00:00: 00 UNSPECIFIED RIGHT BUNDLE-BRANC H BLOCK Active 04-16 00:00: 00 NONRHEUMATIC AORTIC (VALVE) STENOSIS Active 04-16 00:00: 00 HYPERLIPIDEM IA, UNSPECIFIED Active 04-16 00:00: 00 MCFP (CURRENT) USE OF ASPIRIN Active 12-26 00:00: 00 GAME MASTER (CURRENT) USE OF ANTICOAGULAN TS Active 12-26 00:00: 00 DEPENDENCE ON RENAL DIALYSIS Active 04-16 00:00: 00 PRESENCE OF CARDIAC PACEMAKER Active 04-16 00:00: 00 PERSONAL HISTORY OF COLONIC POLYPS Active 04-16 00:00: 00 Allergies, Adverse Reactions, Alerts Allergy Name Allergy Type Status Severity Reaction(s) Onset Date Inactive Date Treating Clinician Comments CEPHALEXIN Propensity to adverse reactions Active 12-26 15:28: 36 LISINOPRIL Propensity to adverse reactions Active 12-26 15:27: 55 Medications Ordered Medication Name Filled Medication Name Start Date Stop Date Current Medication? Ordering Clinician Indication Dosage Frequency Signature (SIG) Comments Components furosemide 40 mg tablet 12-26 00:00: 00 Yes [id number] FLUID OVERLOAD 1 tablet EVERY DAY 1 tablet EVERY DAY (route: oral) Alternate Route: DROPS. Med Classific ation: Cardiovas cular Therapy Agents acetaminoph en 325 mg capsule 12-06 00:00: 00 Yes [id number] PAIN 2 capsule EVERY 6 HOURS 2 capsule EVERY 6 HOURS (route: oral) Med Classific ation: Analgesic , Anti-infl ammatory or Antipyret ic atorvastati n 10 mg tablet 12-06 00:00: 00 Yes [id number] HLD 1 tablet BEDTIME 1 tablet BEDTIME (route: oral) Med Classific ation: Cardiovas cular Therapy Agents carvedilol 6.25 mg tablet 12-06 00:00: 00 Yes [id number] HTN 1 tablet 2 TIMES DAILY 1 tablet 2 TIMES DAILY (route: oral) Med Classific ation: Cardiovas cular Therapy Agents Dulcolax (bisacodyl) 5 mg tablet,mireay yed release 12-06 00:00: 00 12-26 00:00 :00 No [id number] CONSTIPATIO N 1-2 tablet DAILY 1-2 tablet DAILY (route: oral) Med Classific ation: Gastroint estinal Therapy Agents enoxaparin 30 mg/0.3 mL subcutaneou s syringe 12-06 00:00: 00 12-26 00:00 :00 No [id number] ANTICOAGULA TION Per instruc tions DAILY Per instructio ns DAILY (route: subcutaneo us) Med Classific ation: Hematolog ical Agents glucosamine -chondroiti n 500 mg-400 mg capsule 12-06 00:00: 00 12-26 00:00 :00 No [id number] SUPPLEMENT 1 capsule DAILY 1 capsule DAILY (route: oral) Med Classific ation: Alternati ve Therapy Multivitami n 50 Plus tablet 12-06 00:00: 00 Yes [id number] SUPPLEMENT 1 tablet DAILY 1 tablet DAILY (route: oral) Med Classific ation: Electroly te Balance-N utritiona l Products oxycodone 5 mg capsule 12-06 00:00: 00 12-26 00:00 :00 No [id number] PAIN 1 capsule EVERY 4 HOURS 1 capsule EVERY 4 HOURS (route: oral) Med Classific ation: Analgesic , Anti-infl ammatory or Antipyret ic Eliquis 2.5 mg tablet 12-26 00:00: 00 Yes [id number] BLOOD THINNER 1 tablet EVERY 12 HOURS 1 tablet EVERY 12 HOURS (route: oral) Med Classific ation: Hematolog ical Agents Vital Signs Vital Name Observation Time Observation Value Commen ts Temperature 2024-01-22 15:09:00.000 97.2 [degF] Temperature 2024-01-17 14:54:00.000 97.7 [degF] Temperature 2024-01-17 10:19:00.000 97 [degF] Temperature 2024-01-15 15:48:00.000 97.1 [degF] Temperature 2024-01-10 11:43:00.000 97.3 [degF] Temperature 2024-01-08 11:18:00.000 98.3 [degF] Temperature 2024-01-01 14:11:00.000 97.7 [degF] Temperature 2024-01-01 12:24:00.000 97.9 [degF] Temperature 2023-12-27 14:30:00.000 98 [degF] BMI (%) 2023-12-28 05:54:56.000 26 kg/m2 Height 2023-12-28 05:54:49.000 66 [in_us] Pulse 2024-01-22 15:09:00.000 66 /min Pulse 2024-01-17 14:54:00.000 66 /min Pulse 2024-01-17 10:19:00.000 65 /min Pulse 2024-01-15 15:48:00.000 62 /min Pulse 2024-01-10 11:43:00.000 60 /min Pulse 2024-01-08 11:18:00.000 65 /min Pulse 2024-01-01 14:11:00.000 68 /min Pulse 2024-01-01 12:24:00.000 71 /min Pulse 2023-12-27 14:30:00.000 70 /min O2 Saturation (%) 2024-01-17 14:54:00.000 97 % O2 Saturation (%) 2024-01-10 11:43:00.000 99 % O2 Saturation (%) 2024-01-01 14:11:00.000 99 % O2 Saturation (%) 2023-12-27 14:30:00.000 100 % Pain 2024-01-22 15:09:00.000 0 Pain 2024-01-17 14:54:00.000 0 Pain 2024-01-17 10:19:00.000 0 Pain 2024-01-15 15:48:00.000 4 Pain 2024-01-10 11:43:00.000 0 Pain 2024-01-08 11:18:00.000 0 Pain 2024-01-01 14:11:00.000 0 Pain 2024-01-01 12:24:00.000 0 Pain 2023-12-27 14:30:00.000 0 Respirations 2024-01-22 15:09:00.000 18 /min Respirations 2024-01-17 14:54:00.000 18 /min Respirations 2024-01-17 10:19:00.000 18 /min Respirations 2024-01-15 15:48:00.000 18 /min Respirations 2024-01-10 11:43:00.000 18 /min Respirations 2024-01-08 11:18:00.000 18 /min Respirations 2024-01-01 14:11:00.000 18 /min Respirations 2024-01-01 12:24:00.000 18 /min Respirations 2023-12-27 14:30:00.000 16 /min Weight (lbs) 2024-01-22 15:09:00.000 150.1 [lb_av] Weight (lbs) 2024-01-17 14:57:00.000 148.5 [lb_av] Weight (lbs) 2024-01-17 10:19:00.000 148.8 [lb_av] Weight (lbs) 2024-01-15 15:53:00.000 150 [lb_av] Weight (lbs) 2024-01-01 14:19:00.000 149.4 [lb_av] Weight (lbs) 2024-01-01 12:27:00.000 152.3 [lb_av] Weight (lbs) 2023-12-28 05:54:56.000 165 [lb_av] Weight (kgs) 2024-01-10 11:49:00.000 67.5 Systolic Blood Pressure 2024-01-22 15:09:00.000 144 mm [Hg] Systolic Blood Pressure 2024-01-17 14:54:00.000 120 mm [Hg] Systolic Blood Pressure 2024-01-17 10:19:00.000 142 mm [Hg] Systolic Blood Pressure 2024-01-15 15:48:00.000 122 mm [Hg] Systolic Blood Pressure 2024-01-10 11:43:00.000 110 mm [Hg] Systolic Blood Pressure 2024-01-08 11:18:00.000 136 mm [Hg] Systolic Blood Pressure 2024-01-01 14:11:00.000 112 mm [Hg] Systolic Blood Pressure 2024-01-01 12:24:00.000 92 mm[ Hg] Systolic Blood Pressure 2023-12-27 14:30:00.000 122 mm [Hg] Diastolic Blood Pressure 2024-01-22 15:09:00.000 60 mm [Hg] Diastolic Blood Pressure 2024-01-17 14:54:00.000 50 mm [Hg] Diastolic Blood Pressure 2024-01-17 10:19:00.000 52 mm [Hg] Diastolic Blood Pressure 2024-01-15 15:48:00.000 78 mm [Hg] Diastolic Blood Pressure 2024-01-10 11:43:00.000 62 mm [Hg] Diastolic Blood Pressure 2024-01-08 11:18:00.000 60 mm [Hg] Diastolic Blood Pressure 2024-01-01 14:11:00.000 52 mm [Hg] Diastolic Blood Pressure 2024-01-01 12:24:00.000 50 mm [Hg] Diastolic Blood Pressure 2023-12-27 14:30:00.000 50 mm [Hg] Plan of Treatment Planned Activity Planned Date Details Comments Future Scheduled Test RN TO OBSE RVE, ASSESS, EVALUATE, AND DEVELOP AN INDIVIDUALIZED PLAN OF CARE. AGENCY MAY ACCEPT ORDERS FROM CONSULTING PHYSICIANS . REGISTERED NURSETO OBSERVE AND ASSESS/LICENSED PRACTICAL NURSE TO OBSERVE FOR RISK FOR FALLS AND INSTRUCT IN FALL PREVENTION, HOME SAFETY, MEDICATION MANAGEMENT, INFECTION PREVENTION, AND NUTRITION MANAGEMENT. REGISTERED NURSE/LICENSED PRACTICAL NURSE MAY PERFORM O2 SATURATION LEVEL ON ADMISSION AND PRN FOR RN TO ASSESS/RIGGER APPRENTICE TO OBSERVE PATIENT, WITH NOTIFICATION TO THE PHYSICIAN IF SATURATION IS 90% IN THE ABSENCE OF MORE SPECIFIC PARAMETERS FROM THE PHYSICIAN. AGENCY MAY PERFORM A RESUMPTION OF CARE VISIT FOLLOWING ANY HOSPITAL ADMISSION. REGISTERED NURSE/LICENSED PRACTICAL NURSE TO MONITOR CO-MORBID CONDITIONS LISTED ON THE PLAN OF CARE AND ANY NEW CONDITIONS THAT PRESENT THEMSELVES DURING THIS EPISODE TO IDENTIFY CHANGES AND INTERVENE TO MINIMIZE COMPLICATIONS. [code = RN TO OBSERVE, ASSESS, EVALUATE, AND DEVELOP AN INDIVIDUALIZED PLAN OF CARE. AGENCY MAY ACCEPT ORDERS FROM CONSULTING PHYSICIANS . REGISTERED NURSETO OBSERVE AND ASSESS/LICENSED PRACTICAL NURSE TO OBSERVE FOR RISK FOR FALLS AND INSTRUCT IN FALL PREVENTION, HOME SAFETY, MEDICATION MANAGEMENT, INFECTION PREVENTION, AND NUTRITION MANAGEMENT. REGISTERED NURSE/LICENSED PRACTICAL NURSE MAY PERFORM O2 SATURATION LEVEL ON ADMISSION AND PRN FOR RN TO ASSESS/RIGGER APPRENTICE TO OBSERVE PATIENT, WITH NOTIFICATION TO THE PHYSICIAN IF SATURATION IS 90% IN THE ABSENCE OF MORE SPECIFIC PARAMETERS FROM THE PHYSICIAN. AGENCY MAY PERFORM A RESUMPTION OF CARE VISIT FOLLOWING ANY HOSPITAL ADMISSION. REGISTERED NURSE/LICENSED PRACTICAL NURSE TO MONITOR CO-MORBID CONDITIONS LISTED ON THE PLAN OF CARE AND ANY NEW CONDITIONS THAT PRESENT THEMSELVES DURING THIS EPISODE TO IDENTIFY CHANGES AND INTERVENE TO MINIMIZE COMPLICATIONS.] Future Scheduled Test RISK FOR H OSPITALIZATION; REGISTERED NURSE TO ASSESS /TEACH, LICENSED PRACTICAL NURSE TO OBSERVE/TEACH PATIENT/CAREGIVER ON RISK FOR HOSPITALIZATION/EMERGENCY ROOM VISITS, TEACH SIGNS AND SYMPTOMS THAT PUT PATIENT AT RISK, WHEN TO NOTIFY NURSE/PHYSICIAN OF COMPLICATIONS/DECLINE, AND WHEN TO CALL 911. [code = RISK FOR HOSPITALIZATION; REGISTERED NURSE TO ASSESS /TEACH, LICENSED PRACTICAL NURSE TO OBSERVE/TEACH PATIENT/CAREGIVER ON RISK FOR HOSPITALIZATION/EMERGENCY ROOM VISITS, TEACH SIGNS AND SYMPTOMS THAT PUT PATIENT AT RISK, WHEN TO NOTIFY NURSE/PHYSICIAN OF COMPLICATIONS/DECLINE, AND WHEN TO CALL 911.] Future Scheduled Test MEDICATION MANAGEMENT; REGISTERED NURSE/LICENSED PRACTICAL NURSE TO REVIEW MEDICATIONS FOR INTERACTIONS, EFFECTIVENESS OF DRUG THERAPY, AND SIGNS/SYMPTOMS OF ADVERSE REACTIONS. MAY INSTRUCT AND REINFORCE MEDICATION TEACHING RELATED TO THE USE OF MEDICATIONS, DOSAGE, FREQUENCY, PURPOSE, SIDE EFFECTS, AND TO REPORT COMPLICATIONS. [code = MEDICATION MANAGEMENT; REGISTERED NURSE/LICENSED PRACTICAL NURSE TO REVIEW MEDICATIONS FOR INTERACTIONS, EFFECTIVENESS OF DRUG THERAPY, AND SIGNS/SYMPTOMS OF ADVERSE REACTIONS. MAY INSTRUCT AND REINFORCE MEDICATION TEACHING RELATED TO THE USE OF MEDICATIONS, DOSAGE, FREQUENCY, PURPOSE, SIDE EFFECTS, AND TO REPORT COMPLICATIONS.] Future Scheduled Test CARDIOVASC ULAR SYSTEM; REGISTERED NURSE TO ASSESS /TEACH, LICENSED PRACTICAL NURSE TO OBSERVE/TEACH RELATED TO ALTERED CARDIOVASCULAR STATUS TO MINIMIZE COMPLICATIONS AND REDUCE HOSPITALIZATION. [code = CARDIOVASCULAR SYSTEM; REGISTERED NURSE TO ASSESS /TEACH, LICENSED PRACTICAL NURSE TO OBSERVE/TEACH RELATED TO ALTERED CARDIOVASCULAR STATUS TO MINIMIZE COMPLICATIONS AND REDUCE HOSPITALIZATION.] Future Scheduled Test SKIN INTEG RITY REGISTERED NURSE TO ASSESS AND TEACH/LICENSED PRACTICAL NURSE TO OBSERVE AND TEACH INTEGUMENTARY STATUS TO IDENTIFY CHANGES AND INTERVENE TO MINIMIZE COMPLICATIONS. PROVIDE SKILLED TEACHING OF GENERAL WOUND AND SKIN CARE AND PREVENTION RELATED TO ACTUAL ALTERED SKIN INTEGRITY RIGHT HIP INCISION, NEW FRAGILE SKIN TO BOTTOM FROM MASD. [code = SKIN INTEGRITY REGISTERED NURSE TO ASSESS AND TEACH/LICENSED PRACTICAL NURSE TO OBSERVE AND TEACH INTEGUMENTARY STATUS TO IDENTIFY CHANGES AND INTERVENE TO MINIMIZE COMPLICATIONS. PROVIDE SKILLED TEACHING OF GENERAL WOUND AND SKIN CARE AND PREVENTION RELATED TO ACTUAL ALTERED SKIN INTEGRITY RIGHT HIP INCISION, NEW FRAGILE SKIN TO BOTTOM FROM MASD. ] Future Scheduled Test PAIN MANAG EMENT; REGISTERED NURSE TO ASSESS AND TEACH/LICENSED PRACTICAL NURSE TO OBSERVE AND TEACH AND PROVIDE EDUCATION ON PAIN MANAGEMENT TECHNIQUES. [code = PAIN MANAGEMENT; REGISTERED NURSE TO ASSESS AND TEACH/LICENSED PRACTICAL NURSE TO OBSERVE AND TEACH AND PROVIDE EDUCATION ON PAIN MANAGEMENT TECHNIQUES.] Future Scheduled Test FALL REDUC TION MANAGEMENT; REGISTERED NURSE TO ASSESS AND TEACH/LICENSED PRACTICAL NURSE TO OBSERVE AND TEACH ON EDUCATION AND INTERVENTION TO IDENTIFY FALL RISK FACTORS SUCH MEDICATIONS THAT MAY CAUSE DIZZINESS, CHRONIC DISEASES, PSYCHOLOGICAL FACTORS, AND EMPOWER/EDUCATE PATIENT/CAREGIVER TO MINIMIZE FALL RISK. [code = FALL REDUCTION MANAGEMENT; REGISTERED NURSE TO ASSESS AND TEACH/LICENSED PRACTICAL NURSE TO OBSERVE AND TEACH ON EDUCATION AND INTERVENTION TO IDENTIFY FALL RISK FACTORS SUCH MEDICATIONS THAT MAY CAUSE DIZZINESS, CHRONIC DISEASES, PSYCHOLOGICAL FACTORS, AND EMPOWER/EDUCATE PATIENT/CAREGIVER TO MINIMIZE FALL RISK.] Future Scheduled Test AGENCY MAY PERFORM A RESUMPTION OF CARE VISIT FOLLOWING ANY HOSPITAL ADMISSION. PT TO EVALUATE, OBSERVE / ASSESS, AND MONITOR, MARKER MACHINE ATTENDANT TO OBSERVE AND MONITOR, PROVIDE SKILLED THERAPEUTIC INTERVENTION, ACTIVITY, EDUCATION, AND TRAINING TO ADDRESS; PT/MARKER MACHINE ATTENDANT TO PROVIDE GAIT TRAINING FOR IMPROVED MOBILITY AND /OR TO NORMALIZE GAIT PATTERN THERAPEUTIC EXERCISES AND ESTABLISHING A HOME EXERCISE PROGRAM (PT/MARKER MACHINE ATTENDANT) PT/MARKER MACHINE ATTENDANT TO PROVIDE STAIR TRAINING SIT TO/FROM STAND TRANSFERS (PT/MARKER MACHINE ATTENDANT) PT TO ASSESS / MARKER MACHINE ATTENDANT TO MONITOR FOR AND REPORT EARLY SIGNS OF ANTICOAGULANT TOXICITY TO THE PHYSICIAN AND/OR THE RN CLINICAL PATIENT SCHEDULER FOR PHYSICIAN NOTIFICATION AND TO PROVIDE PATIENT/CAREGIVER EDUCATION ON ANTICOAGULANT THERAPY PT / MARKER MACHINE ATTENDANT TO MONITOR AND EDUCATE ON OXYGEN SATURATION DURING ADLS/IADLS, NOTIFY PHYSICIAN AND/OR THE RN CLINICAL PATIENT SCHEDULER FOR PHYSICIAN NOTIFICATION AND IF O2 SATS BELOW PHYSICIAN ORDERED PARAMETERS AFTER 10 MIN OF REST PT / MARKER MACHINE ATTENDANT TO MONITOR FOR HYPO/HYPERGLYCEMIA AND CONDUCT ROUTINE FOOT INSPECTIONS. RECORD PATIENT REPORTED BLOOD SUGAR LEVELS AND NOTIFY PHYSICIAN AND/OR THE RN CLINICAL PATIENT SCHEDULER FOR PHYSICIAN NOTIFICATION IF BLOOD SUGAR LEVELS ARE OUTSIDE ORDERED PARAMETERS. TEACH PATIENT/CAREGIVER ON DAILY FOOT INSPECTIONS PT / MARKER MACHINE ATTENDANT TO EDUCATE ON HIP REPLACEMENT SELF-MANAGEMENT PT / MARKER MACHINE ATTENDANT TO OBSERVE WOUND/INCISION AND/OR INTACT DRESSING ON RIGHT HIP AND REPORT EARLY SIGNS AND SYMPTOMS OF WOUND DETERIORATION, COMPLICATIONS, OR INFECTION TO PHYSICIAN AND/OR THE RN CLINICAL PATIENT SCHEDULER FOR PHYSICIAN NOTIFICATION. PT/MARKER MACHINE ATTENDANT TO IDENTIFY FALL RISK FACTORS; EDUCATE THE PATIENT/CAREGIVER ON WAYS TO REDUCE FALL RISK FACTORS AND ESTABLISH HOME EXERCISE PROGRAM TO MINIMIZE FALL RISK. MAY TEACH THE PATIENT FLOOR RECOVERY WHEN CLINICALLY APPROPRIATE PT / MARKER MACHINE ATTENDANT TO INSTRUCT PATIENT/CAREGIVER ON RISK FOR HOSPITALIZATION/EMERGENCY ROOM VISITS, TEACH SIGNS AND SYMPTOMS THAT PUT PATIENT AT RISK, WHEN TO NOTIFY NURSE/PHYSICIAN OF COMPLICATIONS/DECLINE, AND WHEN TO CALL 911. [code = AGENCY MAY PERFORM A RESUMPTION OF CARE VISIT FOLLOWING ANY HOSPITAL ADMISSION. PT TO EVALUATE, OBSERVE / ASSESS, AND MONITOR, MARKER MACHINE ATTENDANT TO OBSERVE AND MONITOR, PROVIDE SKILLED THERAPEUTIC INTERVENTION, ACTIVITY, EDUCATION, AND TRAINING TO ADDRESS; PT/MARKER MACHINE ATTENDANT TO PROVIDE GAIT TRAINING FOR IMPROVED MOBILITY AND /OR TO NORMALIZE GAIT PATTERN THERAPEUTIC EXERCISES AND ESTABLISHING A HOME EXERCISE PROGRAM (PT/MARKER MACHINE ATTENDANT) PT/MARKER MACHINE ATTENDANT TO PROVIDE STAIR TRAINING SIT TO/FROM STAND TRANSFERS (PT/MARKER MACHINE ATTENDANT) PT TO ASSESS / MARKER MACHINE ATTENDANT TO MONITOR FOR AND REPORT EARLY SIGNS OF ANTICOAGULANT TOXICITY TO THE PHYSICIAN AND/OR THE RN CLINICAL PATIENT SCHEDULER FOR PHYSICIAN NOTIFICATION AND TO PROVIDE PATIENT/CAREGIVER EDUCATION ON ANTICOAGULANT THERAPY PT / MARKER MACHINE ATTENDANT TO MONITOR AND EDUCATE ON OXYGEN SATURATION DURING ADLS/IADLS, NOTIFY PHYSICIAN AND/OR THE RN CLINICAL PATIENT SCHEDULER FOR PHYSICIAN NOTIFICATION AND IF O2 SATS BELOW PHYSICIAN ORDERED PARAMETERS AFTER 10 MIN OF REST PT / MARKER MACHINE ATTENDANT TO MONITOR FOR HYPO/HYPERGLYCEMIA AND CONDUCT ROUTINE FOOT INSPECTIONS. RECORD PATIENT REPORTED BLOOD SUGAR LEVELS AND NOTIFY PHYSICIAN AND/OR THE RN CLINICAL PATIENT SCHEDULER FOR PHYSICIAN NOTIFICATION IF BLOOD SUGAR LEVELS ARE OUTSIDE ORDERED PARAMETERS. TEACH PATIENT/CAREGIVER ON DAILY FOOT INSPECTIONS PT / MARKER MACHINE ATTENDANT TO EDUCATE ON HIP REPLACEMENT SELF-MANAGEMENT PT / MARKER MACHINE ATTENDANT TO OBSERVE WOUND/INCISION AND/OR INTACT DRESSING ON RIGHT HIP AND REPORT EARLY SIGNS AND SYMPTOMS OF WOUND DETERIORATION, COMPLICATIONS, OR INFECTION TO PHYSICIAN AND/OR THE RN CLINICAL PATIENT SCHEDULER FOR PHYSICIAN NOTIFICATION. PT/MARKER MACHINE ATTENDANT TO IDENTIFY FALL RISK FACTORS; EDUCATE THE PATIENT/CAREGIVER ON WAYS TO REDUCE FALL RISK FACTORS AND ESTABLISH HOME EXERCISE PROGRAM TO MINIMIZE FALL RISK. MAY TEACH THE PATIENT FLOOR RECOVERY WHEN CLINICALLY APPROPRIATE PT / MARKER MACHINE ATTENDANT TO INSTRUCT PATIENT/CAREGIVER ON RISK FOR HOSPITALIZATION/EMERGENCY ROOM VISITS, TEACH SIGNS AND SYMPTOMS THAT PUT PATIENT AT RISK, WHEN TO NOTIFY NURSE/PHYSICIAN OF COMPLICATIONS/DECLINE, AND WHEN TO CALL 911. ] Goal 2024-01-22 Patient Goal - G ET BACK TO NORMAL WOTH AMBULATION, TRY TO NOT NEED THE CANE Goal Provider Goal - A PLAN OF CARE WILL BE ESTABLISHED THAT MEETS THE PATIENTS NEEDS. PATIENT WILL DEMONSTRATE OXYGEN SATURATION WITHIN NORMAL LIMITS OR PATIENTS OPTIMAL LEVEL ESTABLISHED BY THE PHYSICIAN THROUGHOUT CARE. CHANGES TO CO-MORBID CONDITIONS AND ANY NEW CONDITIONS WILL BE IDENTIFIED AND REPORTED TO THE PHYSICIAN. Goal Provider Goal - PATIENT/CAREGIVER WILL VERBALIZE UNDERSTANDING OF SIGNS AND SYMPTOMS THAT PUT THE PATIENT AT RISK FOR HOSPITALIZATION /EMERGENCY ROOM VISITS, WHEN TO NOTIFY NURSE/PHYSICIAN OF COMPLICATIONS/DECLINE AND WHEN TO CALL 911. Goal Provider Goal - PATIENT/CAREGIVER TO VERBALIZE, AND CONSISTENTLY DEMONSTRATE EFFECTIVE, SAFE MANAGEMENT OF MEDICATION INCLUDING KNOWLEDGE OF EFFECTIVENESS, POTENTIAL SIDE EFFECTS AND DRUG REACTIONS AND WHEN TO CONTACT THE APPROPRIATE CARE PROVIDER. PATIENT/CAREGIVER WILL BE ABLE TO VERBALIZE UNDERSTANDING OF MEDICATION REGIMEN AND ACCURATELY TAKE MEDICATIONS PRESCRIBED WITHOUT ADVERSE EFFECTS BY EOE Goal Provider Goal - PATIENT / CAREGIVER WILL VERBALIZE/DEMONSTRATE UNDERSTANDING OF MEASURES TO MANAGE ALTERED CARDIOVASCULAR STATUS BY EOE Goal Provider Goal - CHANGES IN SKIN INTEGRITY STATUS WILL BE IDENTIFIED AND REPORTED TO THE PHYSICIAN FOR PROMPT INTERVENTION. PATIENT / CAREGIVER WILL VERBALIZE/DEMONSTRATE ADEQUATE KNOWLEDGE OF INTEGUMENTARY STATUS AND APPROPRIATE MEASURES TO PROMOTE SKIN INTEGRITY AND PREVENT INJURY BY EOE Goal Provider Goal - PATIENT / CAREGIVER WILL VERBALIZE / DEMONSTRATE UNDERSTANDING OF PAIN CONTROL MEASURES BY EOE Goal Provider Goal - PATIENT/CAREGIVER ABLE TO IDENTIFY FALL RISK FACTORS AND IMPLEMENT STRATEGIES TO MINIMIZE FALL RISK. PATIENT/CAREGIVER WILL VERBALIZE/DEMONSTRATE AN ABILITY TO ADHERE TO FALL REDUCTION SELF MANAGEMENT AND LIFE-STYLE CHANGES AT DISCHARGE. PERSONAL GOAL(S) STATED BY PATIENT/CAREGIVER WILL BE MET BY EOE. Goal Provider Goal - PT LTG: PATIENT WILL DEMONSTRATE REDUCED GAIT DEVIATIONS TO REDUCE THE RISK FOR FALLING AND MINIMIZE STRAIN ON KNEES/HIPS AND BACK EVIDENCED BY IMPROVED HEEL STRIKE, ADEQUATE STEP LENGTH AND CONSISTENT FOOT CLEARANCE BILATERALLY USING LRAD TO WALK WITH INDEPENDENCE IN ORDER TO ACCESS ALL AREAS OF THE HOME AND TRANSPORTATION WITHIN 4 WEEKS PT LTG: PATIENT WILL DEMONSTRATE REDUCED FALL RISK EVIDENCED BY IMPROVED SELF- SELECTED WALKING SPEED (SSWS CUT SCORE 0.6 TO 0.9 INDICATES MODERATE FALL RISK, 0.6 M/S INDICATES HIGH FALL RISK) FROM 0.7M/SEC TO 1.0M/SEC WITHIN 4 WEEKS PT LTG: PATIENT WILL DEMONSTRATE IMPROVED FUNCTIONAL STRENGTH EVIDENCED BY FIVE TIMES SIT TO STAND TEST (CUT SCORE >12 SECONDS INDICATES AN INCREASED FALL RISK) IMPROVING FROM 17 SECONDS TO 11 SECONDS WITHIN 4 WEEKS PT LTG: PATIENT WILL DEMONSTRATE INCREASED STRENGTH OF RIGHT HIP LES FROM 3/5 TO 4/5 WITHIN 4 WEEKS IN ORDER TO IMPROVE SAFETY AND STABILITY WITH GAIT AND STAIRS PT LTG: PATIENT WILL DEMONSTRATE IMPROVED ABILITY TO SAFELY NEGOTIATE STAIRS FROM NT TO INDEPENDENT WITH RAIL IN ORDER TO IMPROVE SAFETY WITH ENTERING AND EXITING HOME WITHIN 4 WEEKS PT STG: PATIENT WILL DEMONSTRATE IMPROVED ABILITY TO PERFORM SIT TO/FROM STAND TRANSFERS TO REDUCE THE RISK OF SKIN BREAKDOWN AND REDUCE FALL RISK FROM SBA TO INDEPENDENT WITHIN 3 WEEKS PT LTG: PATIENT WILL NOT EXHIBIT SIGNS AND SYMPTOMS OF ANTICOAGULANT TOXICITY THROUGHOUT EPISODE OF CARE. PT LTG: PATIENT WILL MAINTAIN OXYGEN SATURATION WITHIN PHYSICIAN ORDERED PARAMETERS THROUGHOUT EPISODE OF CARE. PATIENTS BLOOD SUGAR WILL REMAIN WELL CONTROLLED WITH SELF-MANAGEMENT THROUGHOUT EPISODE OF CARE. PT GOAL: PATIENT WILL DEMONSTRATE OPTIMAL OUTCOMES INCLUDING INCREASED ROM AND STRENGTH WITH NO COMPLICATIONS FOLLOWING HIP SURGERY BY END OF EPISODE. PT GOAL: THE PATIENT WILL NOT DEMONSTRATE ANY WOUND COMPLICATIONS DURING THE EPISODE OF CARE. PT LTG: PATIENT/CAREGIVER WILL DEMONSTRATE ADHERENCE TO FALL REDUCTION SELF-MANAGEMENT AND REDUCING FALL RISK FACTORS TO MINIMIZE FALL RISK BY END OF EPISODE. PT LTG: PATIENT WILL BE INDEPENDENT WITH IMPLEMENTATION OF HEP WITHIN 4 WEEKS PT GOAL: PATIENT/CAREGIVER WILL VERBALIZE UNDERSTANDING OF SIGNS AND SYMPTOMS THAT PUT THE PATIENT AT RISK FOR HOSPITALIZATION /EMERGENCY ROOM VISITS, WHEN TO NOTIFY NURSE/PHYSICIAN OF COMPLICATIONS/DECLINE AND WHEN TO CALL 911. Reason for Visit INDEPENDENT IN THE HOME Encounters Start Date/Time End Date/Time Encounter Type Admission Type Attending [facility] Care Department Encounter ID Discharge Date Discharge Status Discharge Condition Discharge Reason Percent Goals Met 2023-12-27 00:00:00 2024-01-22 00:00:00 Outpatient [facility] [id number] 2024-01-22 00:00:00 DISCHARGE TO HOME OR SELF CARE INDEPENDEN T IN THE HOME HH OR PAL- GOALS MET 96.15
== END 2024-03-20 10:48 | disposition home or self-care (01) ==
LOC: HO.HOSX 10:47
PROVIDERS: Visit Provider Orthopaedic Surgery
DX: M25.559 Pain in unspecified hip (principal); Z96.649 Presence of unspecified artificial hip joint
CPT/HCPCS: 72170; 99212

== ENCOUNTER 2024-03-20 11:12 | Outpatient (AMB) | payer MEDICARE, SELFPAY ==
--- NOTE | 2024-03-20 11:28 | MHC.OFFVIS ---
Intake Visit Reasons: OV- f/u Revision RT CHERYLE 12/18/23 NE-w/xray Intake Note: George is an 83 year old male who presents today for a follow up of his right hip s/p Right CHERYLE Revision 12/18/23, Right CHERYLE 12/05/23. States he is very happy with his surgery, has no complaints, pain or discomfort. Xrays updated in office. Allergies cephalexin [From KEFLEX] Allergy (Severe, Verified 03/20/24 11:30) ANGIO EDEMA lisinopril [LISINOPRIL] Allergy (Severe, Verified 03/20/24 11:30) FACIAL EDEMA simvastatin Allergy (Severe, Verified 03/20/24 11:30) renal insufficiency amlodipine Allergy (Mild, Verified 03/20/24 11:30) renal insuff in combo w/ statin rx HPI HPI OV- f/u Revision RT CHERYLE 12/18/23 NE-w/xray: Details: George is an 83 year old male who presents today for a follow up of his right hip s/p Right CHERYLE Revision 12/18/23, Right CHERYLE 12/05/23. States he is very happy with his surgery, has no complaints, pain or discomfort. Xrays updated in office. [facility] Medical History (Updated 03/05/24 @ 11:18 by Shimon Moe MD) Avascular necrosis of bone of right hip Presence of arterial-venous shunt (for dialysis) History of transfusion of packed red blood cells ESRD (end stage renal disease) on dialysis Normally functioning cardiac pacemaker present Essential hypertension Valvular heart disease Chronic heart failure with preserved ejection fraction (HFpEF) Pulmonary hypertension Arthritis Anemia NAVA (dyspnea on exertion) Rhabdomyolysis due to statin therapy Chronic kidney disease Diabetes Atherosclerotic cardiovascular disease Aortic valvular disease Pacemaker CHF (congestive heart failure) HTN (hypertension) Surgical History 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, 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) History of cardiac catheterization (~08/2020) History of tonsillectomy Status cardiac pacemaker S/P excision of lipoma Hx of colonoscopy Family History Father Stroke Mother Stroke Diabetes Social History (Reviewed 03/20/24 @ 11:31 by PHILIPPE Ricardo Household Members: Spouse Housing: Apartment Are you a primary manager intensive care unit to a significant other at home: No Do you presently have visiting nurse or other home services: Yes (elder services, meals on wheels) Alcohol intake: current Alcohol intake frequency: former alcohol drinker Alcohol type: hard liquor Patient Tobacco Use Status: Never used Tobacco Advance Directives Date on File: 04/26/20 service: Yes Current occupational status: retired Current occupation: rt handed Physical Exam Extrem Other: No hip pain with range of motion. Normal gait. Results Reviewed Results Reviewed: I personally reviewed relevant radiographs. Right CHERYLE in expected post operative position with no hardware complications or evidence of loosening Assessment & Plan Assessment & Plan (1) S/P revision of total hip: Onset Date: 12/18/23 Comment: Right Code(s): Z96.649 - Presence of unspecified artificial hip joint Category: Surgical Plan: Right hip replacement complicated by fracture and subsequent revision surgery. He is doing very well. I did remind him of the poor bone quality and that he should still be careful and use an assistive device. We can follow up as needed. Orders: Orders XR pelvis 1-2V Today M25.559 - Pain in unspecified hip Coding Level of Care Code Global (34721) Diagnoses S/P revision of total hip Z96.649
--- OUTSIDE RECORDS SUMMARY | 2024-03-26 01:52 | XMS_ITS | Continuity of Care Document ---
Author Name [facility] Organization [facility] Care Team Providers Care Family Partner Name Role Phone [facility] Unavailable Unavailable Encounters Combined list of: 1) Encounters from [facility] Veterans Affairs facilities going back up to thelast 18 months. 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 Location Location Details Encounter Type Encounter Number Reason For Visit Attending Provider ADM Date DC Date Status Disposition Source [facility] Outpatient Encounter [id number] 11/14 [facility] [place]
--- OUTSIDE RECORDS SUMMARY | 2024-03-26 01:53 | XMS_ITS | Clinical Summary ---
Author Organization Unknown Care Team Providers Care Typist Name Role Phone MARCELLE OVALLE, KAYLA Unavailable Unavailable MANDA RN, KIP Unavailable Unavailab elaine ROSE LPN, MARY Unavailable Unavailable EMMA PT, SYLVIA Unavailable Unavailable FRANCESCA PSYCHOLOGICAL EXAMINER, TORSTEN Unavailable Unavailable SPAASHIA OT, JUANIS Unavailable Unavailable CONDINO YOUTH OFFICER/VAZQUEZ, KEVIN Unavailable Unav ailable Payers Payer Name Policy Type Policy Number Effective Date Expira tion Date MEDICARE.NGS.PDGM [id number] Problems Condition Name Condition Details Condition Category [...] 04-16 00:00: 00 ATHSCL HEART DISEASE OF [place] CORONARY ARTERY W/O ANG PCTRS Active 04-16 00:00: 00 SICK SINUS SYNDROME Active 04-16 00:00: 00 UNSPECIFIED RIGHT BUNDLE-BRANC H BLOCK Active 04-16 00:00: 00 NONRHEUMATIC AORTIC (VALVE) STENOSIS Active 04-16 00:00: 00 HYPERLIPIDEM IA, UNSPECIFIED Active 04-16 00:00: 00 PENITENTIARY (CURRENT) USE OF ASPIRIN Active 12-26 00:00: 00 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 Med Classific ation: Cardiovas cular Therapy Agents acetaminoph en 325 mg capsule 12-06 00:00: 00 Yes [id number] PAIN 2 capsule EVERY 6 HOURS 2 capsule EVERY 6 HOURS (route: oral) Med Classific ation: Analgesic , Anti-infl ammatory or Antipyret ic atorvastati n 10 mg tablet 12-06 00:00: 00 Yes [id number] HLD 1 tablet BEDTIME 1 tablet BEDTIME (route: oral) Med Classific ation: Cardiovas cular Therapy Agents carvedilol 6.25 mg tablet 12-06 00:00: 00 Yes [id number] HTN 1 tablet 2 TIMES DAILY 1 tablet 2 TIMES DAILY (route: oral) Med Classific ation: Cardiovas cular Therapy Agents Dulcolax (bisacodyl) 5 mg tablet,mireya yed release 12-06 00:00: 00 12-26 00:00 :00 No [id number] CONSTIPATIO N 1-2 tablet DAILY 1-2 tablet DAILY (route: oral) Med Classific ation: Gastroint estinal Therapy Agents enoxaparin 30 mg/0.3 mL subcutaneou s syringe 12-06 00:00: 00 12-26 00:00 :00 No [id number] ANTICOAGULA TION Per instruc tions DAILY Per instructio ns DAILY (route: subcutaneo us) Med Classific ation: Hematolog ical Agents glucosamine -chondroiti n 500 mg-400 mg capsule 12-06 00:00: 00 12-26 00:00 :00 No [id number] SUPPLEMENT 1 capsule DAILY 1 capsule DAILY (route: oral) Med Classific ation: Alternati ve Therapy Multivitami n 50 Plus tablet 12-06 00:00: 00 Yes [id number] SUPPLEMENT 1 tablet DAILY 1 tablet DAILY (route: oral) Med Classific ation: Electroly te Balance-N utritiona l Products oxycodone 5 mg capsule 12-06 00:00: 00 12-26 00:00 :00 No [id number] PAIN 1 capsule EVERY 4 HOURS 1 capsule EVERY 4 HOURS (route: oral) Med Classific ation: Analgesic , Anti-infl ammatory or Antipyret ic Eliquis 2.5 mg tablet 12-26 00:00: 00 Yes [id number] BLOOD THINNER 1 tablet EVERY 12 HOURS [...] ON ADMISSION AND PRN FOR RN TO ASSESS/FREIGHT FLOW SALES LEADER TO OBSERVE PATIENT, WITH NOTIFICATION TO THE [...] ON ADMISSION AND PRN FOR RN TO ASSESS/FREIGHT FLOW SALES LEADER TO OBSERVE PATIENT, WITH NOTIFICATION TO THE [...] TO EVALUATE, OBSERVE / ASSESS, AND MONITOR, PSYCHOLOGICAL EXAMINER TO OBSERVE AND MONITOR, PROVIDE SKILLED THERAPEUTIC INTERVENTION, ACTIVITY, EDUCATION, AND TRAINING TO ADDRESS; PT/PSYCHOLOGICAL EXAMINER TO PROVIDE GAIT TRAINING FOR IMPROVED MOBILITY AND /OR TO NORMALIZE GAIT PATTERN THERAPEUTIC EXERCISES AND ESTABLISHING A HOME EXERCISE PROGRAM (PT/PSYCHOLOGICAL EXAMINER) PT/PSYCHOLOGICAL EXAMINER TO PROVIDE STAIR TRAINING SIT TO/FROM STAND TRANSFERS (PT/PSYCHOLOGICAL EXAMINER) PT TO ASSESS / PSYCHOLOGICAL EXAMINER TO MONITOR FOR AND REPORT EARLY SIGNS OF ANTICOAGULANT TOXICITY TO THE PHYSICIAN AND/OR THE RN CLINICAL TRAFFIC DIRECTOR FOR PHYSICIAN NOTIFICATION AND TO PROVIDE PATIENT/CAREGIVER EDUCATION ON ANTICOAGULANT THERAPY PT / PSYCHOLOGICAL EXAMINER TO MONITOR AND EDUCATE ON OXYGEN SATURATION DURING ADLS/IADLS, NOTIFY PHYSICIAN AND/OR THE RN CLINICAL TRAFFIC DIRECTOR FOR PHYSICIAN NOTIFICATION AND IF O2 SATS BELOW PHYSICIAN ORDERED PARAMETERS AFTER 10 MIN OF REST PT / PSYCHOLOGICAL EXAMINER TO MONITOR FOR HYPO/HYPERGLYCEMIA AND CONDUCT ROUTINE FOOT INSPECTIONS. RECORD PATIENT REPORTED BLOOD SUGAR LEVELS AND NOTIFY PHYSICIAN AND/OR THE RN CLINICAL TRAFFIC DIRECTOR FOR PHYSICIAN NOTIFICATION IF BLOOD SUGAR LEVELS ARE OUTSIDE ORDERED PARAMETERS. TEACH PATIENT/CAREGIVER ON DAILY FOOT INSPECTIONS PT / PSYCHOLOGICAL EXAMINER TO EDUCATE ON HIP REPLACEMENT SELF-MANAGEMENT PT / PSYCHOLOGICAL EXAMINER TO OBSERVE WOUND/INCISION AND/OR INTACT DRESSING ON RIGHT HIP AND REPORT EARLY SIGNS AND SYMPTOMS OF WOUND DETERIORATION, COMPLICATIONS, OR INFECTION TO PHYSICIAN AND/OR THE RN CLINICAL TRAFFIC DIRECTOR FOR PHYSICIAN NOTIFICATION. PT/PSYCHOLOGICAL EXAMINER TO IDENTIFY FALL RISK FACTORS; EDUCATE THE PATIENT/CAREGIVER ON WAYS TO REDUCE FALL RISK FACTORS AND ESTABLISH HOME EXERCISE PROGRAM TO MINIMIZE FALL RISK. MAY TEACH THE PATIENT FLOOR RECOVERY WHEN CLINICALLY APPROPRIATE PT / PSYCHOLOGICAL EXAMINER TO INSTRUCT PATIENT/CAREGIVER ON RISK FOR HOSPITALIZATION/EMERGENCY ROOM VISITS, TEACH SIGNS AND SYMPTOMS THAT PUT PATIENT AT RISK, WHEN TO NOTIFY NURSE/PHYSICIAN OF COMPLICATIONS/DECLINE, AND WHEN TO CALL 911. [code = AGENCY MAY PERFORM A RESUMPTION OF CARE VISIT FOLLOWING ANY HOSPITAL ADMISSION. PT TO EVALUATE, OBSERVE / ASSESS, AND MONITOR, PSYCHOLOGICAL EXAMINER TO OBSERVE AND MONITOR, PROVIDE SKILLED THERAPEUTIC INTERVENTION, ACTIVITY, EDUCATION, AND TRAINING TO ADDRESS; PT/PSYCHOLOGICAL EXAMINER TO PROVIDE GAIT TRAINING FOR IMPROVED MOBILITY AND /OR TO NORMALIZE GAIT PATTERN THERAPEUTIC EXERCISES AND ESTABLISHING A HOME EXERCISE PROGRAM (PT/PSYCHOLOGICAL EXAMINER) PT/PSYCHOLOGICAL EXAMINER TO PROVIDE STAIR TRAINING SIT TO/FROM STAND TRANSFERS (PT/PSYCHOLOGICAL EXAMINER) PT TO ASSESS / PSYCHOLOGICAL EXAMINER TO MONITOR FOR AND REPORT EARLY SIGNS OF ANTICOAGULANT TOXICITY TO THE PHYSICIAN AND/OR THE RN CLINICAL TRAFFIC DIRECTOR FOR PHYSICIAN NOTIFICATION AND TO PROVIDE PATIENT/CAREGIVER EDUCATION ON ANTICOAGULANT THERAPY PT / PSYCHOLOGICAL EXAMINER TO MONITOR AND EDUCATE ON OXYGEN SATURATION DURING ADLS/IADLS, NOTIFY PHYSICIAN AND/OR THE RN CLINICAL TRAFFIC DIRECTOR FOR PHYSICIAN NOTIFICATION AND IF O2 SATS BELOW PHYSICIAN ORDERED PARAMETERS AFTER 10 MIN OF REST PT / PSYCHOLOGICAL EXAMINER TO MONITOR FOR HYPO/HYPERGLYCEMIA AND CONDUCT ROUTINE FOOT INSPECTIONS. RECORD PATIENT REPORTED BLOOD SUGAR LEVELS AND NOTIFY PHYSICIAN AND/OR THE RN CLINICAL TRAFFIC DIRECTOR FOR PHYSICIAN NOTIFICATION IF BLOOD SUGAR LEVELS ARE OUTSIDE ORDERED PARAMETERS. TEACH PATIENT/CAREGIVER ON DAILY FOOT INSPECTIONS PT / PSYCHOLOGICAL EXAMINER TO EDUCATE ON HIP REPLACEMENT SELF-MANAGEMENT PT / PSYCHOLOGICAL EXAMINER TO OBSERVE WOUND/INCISION AND/OR INTACT DRESSING ON RIGHT HIP AND REPORT EARLY SIGNS AND SYMPTOMS OF WOUND DETERIORATION, COMPLICATIONS, OR INFECTION TO PHYSICIAN AND/OR THE RN CLINICAL TRAFFIC DIRECTOR FOR PHYSICIAN NOTIFICATION. PT/PSYCHOLOGICAL EXAMINER TO IDENTIFY FALL RISK FACTORS; EDUCATE THE PATIENT/CAREGIVER ON WAYS TO REDUCE FALL RISK FACTORS AND ESTABLISH HOME EXERCISE PROGRAM TO MINIMIZE FALL RISK. MAY TEACH THE PATIENT FLOOR RECOVERY WHEN CLINICALLY APPROPRIATE PT / PSYCHOLOGICAL EXAMINER TO INSTRUCT PATIENT/CAREGIVER ON RISK FOR HOSPITALIZATION/EMERGENCY [...] End Date/Time Encounter Type Admission Type Attending [facility] Care Department Encounter ID Discharge Date Discharge Status Discharge Condition Discharge Reason Percent Goals Met 2023-12-27 00:00:00 2024-01-22 00:00:00 Outpatient KIP [facility] [id number] 2024-01-22 00:00:00 DISCHARGE TO HOME OR SELF CARE INDEPENDEN T IN THE HOME HH OR PAL- GOALS MET 96.15
--- OUTSIDE RECORDS SUMMARY | 2024-03-26 01:53 | XMS_ITS | Clinical Summary ---
Author Organization Unknown Care Team Providers Care Travel Pta Name Role Phone MARCELLE OVALLE, KAYLA Unavailable Unavailable MANDA RN, KIP Unavailable Unavailab elaine ROSE LPN, MARY Unavailable Unavailable EMMA PT, SYLVIA Unavailable Unavailable FRANCESCA FILING AND POLISHING SUPERVISOR, TORSTEN Unavailable Unavailable SPAASHIA OT, JUANIS Unavailable Unavailable CONDINO ENVIRONMENTAL COMPLIANCE OFFICER/VAZQUEZ, KEVIN Unavailable Unav ailable Payers Payer Name Policy Type Policy Number Effective Date Expira tion Date MEDICARE.NGS.PDGM [id number] Problems Condition Name Condition Details Condition Category [...] 04-16 00:00: 00 ATHSCL HEART DISEASE OF [place] CORONARY ARTERY W/O ANG PCTRS Active 04-16 00:00: 00 SICK SINUS SYNDROME Active 04-16 00:00: 00 UNSPECIFIED RIGHT BUNDLE-BRANC H BLOCK Active 04-16 00:00: 00 NONRHEUMATIC AORTIC (VALVE) STENOSIS Active 04-16 00:00: 00 HYPERLIPIDEM IA, UNSPECIFIED Active 04-16 00:00: 00 USP (CURRENT) USE OF ASPIRIN Active 12-26 00:00: 00 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 Med Classific ation: Cardiovas cular Therapy Agents acetaminoph en 325 mg capsule 12-06 00:00: 00 Yes [id number] PAIN 2 capsule EVERY 6 HOURS 2 capsule EVERY 6 HOURS (route: oral) Med Classific ation: Analgesic , Anti-infl ammatory or Antipyret ic atorvastati n 10 mg tablet 12-06 00:00: 00 Yes [id number] HLD 1 tablet BEDTIME 1 tablet BEDTIME (route: oral) Med Classific ation: Cardiovas cular Therapy Agents carvedilol 6.25 mg tablet 12-06 00:00: 00 Yes [id number] HTN 1 tablet 2 TIMES DAILY 1 tablet 2 TIMES DAILY (route: oral) Med Classific ation: Cardiovas cular Therapy Agents Dulcolax (bisacodyl) 5 mg tablet,mireya yed release 12-06 00:00: 00 12-26 00:00 :00 No [id number] CONSTIPATIO N 1-2 tablet DAILY 1-2 tablet DAILY (route: oral) Med Classific ation: Gastroint estinal Therapy Agents enoxaparin 30 mg/0.3 mL subcutaneou s syringe 12-06 00:00: 00 12-26 00:00 :00 No [id number] ANTICOAGULA TION Per instruc tions DAILY Per instructio ns DAILY (route: subcutaneo us) Med Classific ation: Hematolog ical Agents glucosamine -chondroiti n 500 mg-400 mg capsule 12-06 00:00: 00 12-26 00:00 :00 No [id number] SUPPLEMENT 1 capsule DAILY 1 capsule DAILY (route: oral) Med Classific ation: Alternati ve Therapy Multivitami n 50 Plus tablet 12-06 00:00: 00 Yes [id number] SUPPLEMENT 1 tablet DAILY 1 tablet DAILY (route: oral) Med Classific ation: Electroly te Balance-N utritiona l Products oxycodone 5 mg capsule 12-06 00:00: 00 12-26 00:00 :00 No [id number] PAIN 1 capsule EVERY 4 HOURS 1 capsule EVERY 4 HOURS (route: oral) Med Classific ation: Analgesic , Anti-infl ammatory or Antipyret ic Eliquis 2.5 mg tablet 12-26 00:00: 00 Yes [id number] BLOOD THINNER 1 tablet EVERY 12 HOURS [...] ON ADMISSION AND PRN FOR RN TO ASSESS/CORRECTIONAL GUARD TO OBSERVE PATIENT, WITH NOTIFICATION TO THE [...] ON ADMISSION AND PRN FOR RN TO ASSESS/CORRECTIONAL GUARD TO OBSERVE PATIENT, WITH NOTIFICATION TO THE [...] TO EVALUATE, OBSERVE / ASSESS, AND MONITOR, FILING AND POLISHING SUPERVISOR TO OBSERVE AND MONITOR, PROVIDE SKILLED THERAPEUTIC INTERVENTION, ACTIVITY, EDUCATION, AND TRAINING TO ADDRESS; PT/FILING AND POLISHING SUPERVISOR TO PROVIDE GAIT TRAINING FOR IMPROVED MOBILITY AND /OR TO NORMALIZE GAIT PATTERN THERAPEUTIC EXERCISES AND ESTABLISHING A HOME EXERCISE PROGRAM (PT/FILING AND POLISHING SUPERVISOR) PT/FILING AND POLISHING SUPERVISOR TO PROVIDE STAIR TRAINING SIT TO/FROM STAND TRANSFERS (PT/FILING AND POLISHING SUPERVISOR) PT TO ASSESS / FILING AND POLISHING SUPERVISOR TO MONITOR FOR AND REPORT EARLY SIGNS OF ANTICOAGULANT TOXICITY TO THE PHYSICIAN AND/OR THE RN CLINICAL DEBURRER MACHINE FOR PHYSICIAN NOTIFICATION AND TO PROVIDE PATIENT/CAREGIVER EDUCATION ON ANTICOAGULANT THERAPY PT / FILING AND POLISHING SUPERVISOR TO MONITOR AND EDUCATE ON OXYGEN SATURATION DURING ADLS/IADLS, NOTIFY PHYSICIAN AND/OR THE RN CLINICAL DEBURRER MACHINE FOR PHYSICIAN NOTIFICATION AND IF O2 SATS BELOW PHYSICIAN ORDERED PARAMETERS AFTER 10 MIN OF REST PT / FILING AND POLISHING SUPERVISOR TO MONITOR FOR HYPO/HYPERGLYCEMIA AND CONDUCT ROUTINE FOOT INSPECTIONS. RECORD PATIENT REPORTED BLOOD SUGAR LEVELS AND NOTIFY PHYSICIAN AND/OR THE RN CLINICAL DEBURRER MACHINE FOR PHYSICIAN NOTIFICATION IF BLOOD SUGAR LEVELS ARE OUTSIDE ORDERED PARAMETERS. TEACH PATIENT/CAREGIVER ON DAILY FOOT INSPECTIONS PT / FILING AND POLISHING SUPERVISOR TO EDUCATE ON HIP REPLACEMENT SELF-MANAGEMENT PT / FILING AND POLISHING SUPERVISOR TO OBSERVE WOUND/INCISION AND/OR INTACT DRESSING ON RIGHT HIP AND REPORT EARLY SIGNS AND SYMPTOMS OF WOUND DETERIORATION, COMPLICATIONS, OR INFECTION TO PHYSICIAN AND/OR THE RN CLINICAL DEBURRER MACHINE FOR PHYSICIAN NOTIFICATION. PT/FILING AND POLISHING SUPERVISOR TO IDENTIFY FALL RISK FACTORS; EDUCATE THE PATIENT/CAREGIVER ON WAYS TO REDUCE FALL RISK FACTORS AND ESTABLISH HOME EXERCISE PROGRAM TO MINIMIZE FALL RISK. MAY TEACH THE PATIENT FLOOR RECOVERY WHEN CLINICALLY APPROPRIATE PT / FILING AND POLISHING SUPERVISOR TO INSTRUCT PATIENT/CAREGIVER ON RISK FOR HOSPITALIZATION/EMERGENCY ROOM VISITS, TEACH SIGNS AND SYMPTOMS THAT PUT PATIENT AT RISK, WHEN TO NOTIFY NURSE/PHYSICIAN OF COMPLICATIONS/DECLINE, AND WHEN TO CALL 911. [code = AGENCY MAY PERFORM A RESUMPTION OF CARE VISIT FOLLOWING ANY HOSPITAL ADMISSION. PT TO EVALUATE, OBSERVE / ASSESS, AND MONITOR, FILING AND POLISHING SUPERVISOR TO OBSERVE AND MONITOR, PROVIDE SKILLED THERAPEUTIC INTERVENTION, ACTIVITY, EDUCATION, AND TRAINING TO ADDRESS; PT/FILING AND POLISHING SUPERVISOR TO PROVIDE GAIT TRAINING FOR IMPROVED MOBILITY AND /OR TO NORMALIZE GAIT PATTERN THERAPEUTIC EXERCISES AND ESTABLISHING A HOME EXERCISE PROGRAM (PT/FILING AND POLISHING SUPERVISOR) PT/FILING AND POLISHING SUPERVISOR TO PROVIDE STAIR TRAINING SIT TO/FROM STAND TRANSFERS (PT/FILING AND POLISHING SUPERVISOR) PT TO ASSESS / FILING AND POLISHING SUPERVISOR TO MONITOR FOR AND REPORT EARLY SIGNS OF ANTICOAGULANT TOXICITY TO THE PHYSICIAN AND/OR THE RN CLINICAL DEBURRER MACHINE FOR PHYSICIAN NOTIFICATION AND TO PROVIDE PATIENT/CAREGIVER EDUCATION ON ANTICOAGULANT THERAPY PT / FILING AND POLISHING SUPERVISOR TO MONITOR AND EDUCATE ON OXYGEN SATURATION DURING ADLS/IADLS, NOTIFY PHYSICIAN AND/OR THE RN CLINICAL DEBURRER MACHINE FOR PHYSICIAN NOTIFICATION AND IF O2 SATS BELOW PHYSICIAN ORDERED PARAMETERS AFTER 10 MIN OF REST PT / FILING AND POLISHING SUPERVISOR TO MONITOR FOR HYPO/HYPERGLYCEMIA AND CONDUCT ROUTINE FOOT INSPECTIONS. RECORD PATIENT REPORTED BLOOD SUGAR LEVELS AND NOTIFY PHYSICIAN AND/OR THE RN CLINICAL DEBURRER MACHINE FOR PHYSICIAN NOTIFICATION IF BLOOD SUGAR LEVELS ARE OUTSIDE ORDERED PARAMETERS. TEACH PATIENT/CAREGIVER ON DAILY FOOT INSPECTIONS PT / FILING AND POLISHING SUPERVISOR TO EDUCATE ON HIP REPLACEMENT SELF-MANAGEMENT PT / FILING AND POLISHING SUPERVISOR TO OBSERVE WOUND/INCISION AND/OR INTACT DRESSING ON RIGHT HIP AND REPORT EARLY SIGNS AND SYMPTOMS OF WOUND DETERIORATION, COMPLICATIONS, OR INFECTION TO PHYSICIAN AND/OR THE RN CLINICAL DEBURRER MACHINE FOR PHYSICIAN NOTIFICATION. PT/FILING AND POLISHING SUPERVISOR TO IDENTIFY FALL RISK FACTORS; EDUCATE THE PATIENT/CAREGIVER ON WAYS TO REDUCE FALL RISK FACTORS AND ESTABLISH HOME EXERCISE PROGRAM TO MINIMIZE FALL RISK. MAY TEACH THE PATIENT FLOOR RECOVERY WHEN CLINICALLY APPROPRIATE PT / FILING AND POLISHING SUPERVISOR TO INSTRUCT PATIENT/CAREGIVER ON RISK FOR HOSPITALIZATION/EMERGENCY [...] End Date/Time Encounter Type Admission Type Attending [facility] Care Department Encounter ID Discharge Date Discharge Status Discharge Condition Discharge Reason Percent Goals Met 2023-12-27 00:00:00 2024-01-22 00:00:00 Outpatient KIP WOL[facility] [id number] 2024-01-22 00:00:00 DISCHARGE TO HOME OR SELF CARE INDEPENDEN T IN THE HOME HH OR PAL- GOALS MET 96.15
== END 2024-03-20 11:33 | disposition home or self-care (01) ==
PROVIDERS: PCP Family Medicine; Visit Provider Orthopaedic Surgery
DX: Z47.1 Aftercare following joint replacement surgery (principal); Z96.641 Presence of right artificial hip joint
CPT/HCPCS: 99212

== ENCOUNTER 2024-04-01 13:05 | Outpatient (AMB) | payer MEDICARE, SELFPAY ==
--- OUTSIDE RECORDS SUMMARY | 2024-04-01 13:07 | XMS_ITS ---
Author Name [facility] Organization [facility] Address [address] [place] [id number] Support Name Relationship Address Phone ANGELIKA TENORIO Next of Kin [address] [place] [address] ANGELIKA TNEORIO Emergency Contact [address] [place] [address] Selected Encounter This section includes the information on record at [place] for the Encounter. Date/Time Encounter Type Encounter Description Reason Pro vider Source Nov 15, 2023 02:39 PM Outpatient Encounter PRIMARY CARE/MEDICINE IHE Encounter Template Text not used by [facility] Encounter Notes: All associated encounter notes This section contains the clinical notes associated to the Encounter. Date/Time Encounter Note(s) Provider Source Nov 15, 2023 02:39 PM PRIMARY CARE TELEP SOLE ENCOUNTER NOTE: LOCAL TITLE: TELEPHONE NOTE/PRIMARY CARE STANDARD TITLE: PRIMARY CARE TELEPHONE ENCOUNTER NOTE DATE OF NOTE: NOV 15, 2023@14:39 ENTRY DATE: NOV 15, 2023@14:39:15 AUTHOR: ANIL NUÑEZ EXP COSIGNER: URGENCY: STATUS: COMPLETED TELEPHONE NOTE/PRIMARY CARE Has ADDENDA on NEAR list. [facility] called to see if would like to establish a PCP. not set up. Will try again on 11/15. /john/ ANIL NUÑEZ Advanced Plugman Signed: 11/15/2023 14:39 11/16/2023 ADDENDUM STATUS: COMPLETED Called to schedule appointment with Primary Care ========= PHONE NUMBER [CELLULAR] - NONE FOUND PATIENT PHONE - Appointment type: Office Spoke with [place]/caregiver, wants a call back to schedule PT requested for this journalists and other writers to call back in December 2023 due to expected Hip surgery 12/04/23 to schedule 60 mins new PT appt Upcoming Appointments: No data available /john/ Kailee Vela ADVANCED SALES AND DISTRIBUTION CLERK Signed: 11/16/2023 15:58 ANIL NUÑEZ [facility]
--- OUTSIDE RECORDS SUMMARY | 2024-04-01 13:07 | XMS_ITS | Continuity of Care Document ---
Author Name [facility] Organization [facility] Care Team Providers Care Display And Banner Designer Name Role Phone [facility] Unavailable Unavailable Encounters Combined list of: 1) Encounters from [facility] Veterans Affairs facilities going back up to thelast 18 months. 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 Location Location Details Encounter Type Encounter Number Reason For Visit Attending Provider ADM Date DC Date Status Disposition Source [facility] Outpatient Encounter [id number] 11/14 [place] [facility]
--- OUTSIDE RECORDS SUMMARY | 2024-04-01 13:08 | XMS_ITS | Clinical Summary ---
Author Organization Unknown Care Team Providers Care Orthopedically Impaired Teacher Name Role Phone MARCELLE OVALLE, KAYLA Unavailable Unavailable MANDA RN, KIP Unavailable Unavailab elaine ROSE LPN, MARY Unavailable Unavailable EMMA PT, SYLVIA Unavailable Unavailable FRANCESCA MATERIAL CUTTER, TORSTEN Unavailable Unavailable SPAASHIA OT, JUANIS Unavailable Unavailable CONDINO INFORMATION CLERK CASHIER/VAZQUEZ, KEVIN Unavailable Unav ailable Payers Payer Name Policy Type Policy Number Effective Date Expira tion Date MEDICARE.NGS.PDGM [id number] Problems Condition Name Condition Details Condition Category [...] 04-16 00:00: 00 ATHSCL HEART DISEASE OF [place] CORONARY ARTERY W/O ANG PCTRS Active 04-16 00:00: 00 SICK SINUS SYNDROME Active 04-16 00:00: 00 UNSPECIFIED RIGHT BUNDLE-BRANC H BLOCK Active 04-16 00:00: 00 NONRHEUMATIC AORTIC (VALVE) STENOSIS Active 04-16 00:00: 00 HYPERLIPIDEM IA, UNSPECIFIED Active 04-16 00:00: 00 [facility] (CURRENT) USE OF ASPIRIN Active 12-26 00:00: 00 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 Med Classific ation: Cardiovas cular Therapy Agents acetaminoph en 325 mg capsule 12-06 00:00: 00 Yes [id number] PAIN 2 capsule EVERY 6 HOURS 2 capsule EVERY 6 HOURS (route: oral) Med Classific ation: Analgesic , Anti-infl ammatory or Antipyret ic atorvastati n 10 mg tablet 12-06 00:00: 00 Yes [id number] HLD 1 tablet BEDTIME 1 tablet BEDTIME (route: oral) Med Classific ation: Cardiovas cular Therapy Agents carvedilol 6.25 mg tablet 12-06 00:00: 00 Yes [id number] HTN 1 tablet 2 TIMES DAILY 1 tablet 2 TIMES DAILY (route: oral) Med Classific ation: Cardiovas cular Therapy Agents Dulcolax (bisacodyl) 5 mg tablet,mireya yed release 12-06 00:00: 00 12-26 00:00 :00 No [id number] CONSTIPATIO N 1-2 tablet DAILY 1-2 tablet DAILY (route: oral) Med Classific ation: Gastroint estinal Therapy Agents enoxaparin 30 mg/0.3 mL subcutaneou s syringe 12-06 00:00: 00 12-26 00:00 :00 No [id number] ANTICOAGULA TION Per instruc tions DAILY Per instructio ns DAILY (route: subcutaneo us) Med Classific ation: Hematolog ical Agents glucosamine -chondroiti n 500 mg-400 mg capsule 12-06 00:00: 00 12-26 00:00 :00 No [id number] SUPPLEMENT 1 capsule DAILY 1 capsule DAILY (route: oral) Med Classific ation: Alternati ve Therapy Multivitami n 50 Plus tablet 12-06 00:00: 00 Yes [id number] SUPPLEMENT 1 tablet DAILY 1 tablet DAILY (route: oral) Med Classific ation: Electroly te Balance-N utritiona l Products oxycodone 5 mg capsule 12-06 00:00: 00 12-26 00:00 :00 No [id number] PAIN 1 capsule EVERY 4 HOURS 1 capsule EVERY 4 HOURS (route: oral) Med Classific ation: Analgesic , Anti-infl ammatory or Antipyret ic Eliquis 2.5 mg tablet 12-26 00:00: 00 Yes [id number] BLOOD THINNER 1 tablet EVERY 12 HOURS [...] ON ADMISSION AND PRN FOR RN TO ASSESS/WHOLESALE AND RETAIL MERCHANT TO OBSERVE PATIENT, WITH NOTIFICATION TO THE [...] ON ADMISSION AND PRN FOR RN TO ASSESS/WHOLESALE AND RETAIL MERCHANT TO OBSERVE PATIENT, WITH NOTIFICATION TO THE [...] TO EVALUATE, OBSERVE / ASSESS, AND MONITOR, MATERIAL CUTTER TO OBSERVE AND MONITOR, PROVIDE SKILLED THERAPEUTIC INTERVENTION, ACTIVITY, EDUCATION, AND TRAINING TO ADDRESS; PT/MATERIAL CUTTER TO PROVIDE GAIT TRAINING FOR IMPROVED MOBILITY AND /OR TO NORMALIZE GAIT PATTERN THERAPEUTIC EXERCISES AND ESTABLISHING A HOME EXERCISE PROGRAM (PT/MATERIAL CUTTER) PT/MATERIAL CUTTER TO PROVIDE STAIR TRAINING SIT TO/FROM STAND TRANSFERS (PT/MATERIAL CUTTER) PT TO ASSESS / MATERIAL CUTTER TO MONITOR FOR AND REPORT EARLY SIGNS OF ANTICOAGULANT TOXICITY TO THE PHYSICIAN AND/OR THE RN CLINICAL CSM CONSULTANT FOR PHYSICIAN NOTIFICATION AND TO PROVIDE PATIENT/CAREGIVER EDUCATION ON ANTICOAGULANT THERAPY PT / MATERIAL CUTTER TO MONITOR AND EDUCATE ON OXYGEN SATURATION DURING ADLS/IADLS, NOTIFY PHYSICIAN AND/OR THE RN CLINICAL CSM CONSULTANT FOR PHYSICIAN NOTIFICATION AND IF O2 SATS BELOW PHYSICIAN ORDERED PARAMETERS AFTER 10 MIN OF REST PT / MATERIAL CUTTER TO MONITOR FOR HYPO/HYPERGLYCEMIA AND CONDUCT ROUTINE FOOT INSPECTIONS. RECORD PATIENT REPORTED BLOOD SUGAR LEVELS AND NOTIFY PHYSICIAN AND/OR THE RN CLINICAL CSM CONSULTANT FOR PHYSICIAN NOTIFICATION IF BLOOD SUGAR LEVELS ARE OUTSIDE ORDERED PARAMETERS. TEACH PATIENT/CAREGIVER ON DAILY FOOT INSPECTIONS PT / MATERIAL CUTTER TO EDUCATE ON HIP REPLACEMENT SELF-MANAGEMENT PT / MATERIAL CUTTER TO OBSERVE WOUND/INCISION AND/OR INTACT DRESSING ON RIGHT HIP AND REPORT EARLY SIGNS AND SYMPTOMS OF WOUND DETERIORATION, COMPLICATIONS, OR INFECTION TO PHYSICIAN AND/OR THE RN CLINICAL CSM CONSULTANT FOR PHYSICIAN NOTIFICATION. PT/MATERIAL CUTTER TO IDENTIFY FALL RISK FACTORS; EDUCATE THE PATIENT/CAREGIVER ON WAYS TO REDUCE FALL RISK FACTORS AND ESTABLISH HOME EXERCISE PROGRAM TO MINIMIZE FALL RISK. MAY TEACH THE PATIENT FLOOR RECOVERY WHEN CLINICALLY APPROPRIATE PT / MATERIAL CUTTER TO INSTRUCT PATIENT/CAREGIVER ON RISK FOR HOSPITALIZATION/EMERGENCY ROOM VISITS, TEACH SIGNS AND SYMPTOMS THAT PUT PATIENT AT RISK, WHEN TO NOTIFY NURSE/PHYSICIAN OF COMPLICATIONS/DECLINE, AND WHEN TO CALL 911. [code = AGENCY MAY PERFORM A RESUMPTION OF CARE VISIT FOLLOWING ANY HOSPITAL ADMISSION. PT TO EVALUATE, OBSERVE / ASSESS, AND MONITOR, MATERIAL CUTTER TO OBSERVE AND MONITOR, PROVIDE SKILLED THERAPEUTIC INTERVENTION, ACTIVITY, EDUCATION, AND TRAINING TO ADDRESS; PT/MATERIAL CUTTER TO PROVIDE GAIT TRAINING FOR IMPROVED MOBILITY AND /OR TO NORMALIZE GAIT PATTERN THERAPEUTIC EXERCISES AND ESTABLISHING A HOME EXERCISE PROGRAM (PT/MATERIAL CUTTER) PT/MATERIAL CUTTER TO PROVIDE STAIR TRAINING SIT TO/FROM STAND TRANSFERS (PT/MATERIAL CUTTER) PT TO ASSESS / MATERIAL CUTTER TO MONITOR FOR AND REPORT EARLY SIGNS OF ANTICOAGULANT TOXICITY TO THE PHYSICIAN AND/OR THE RN CLINICAL CSM CONSULTANT FOR PHYSICIAN NOTIFICATION AND TO PROVIDE PATIENT/CAREGIVER EDUCATION ON ANTICOAGULANT THERAPY PT / MATERIAL CUTTER TO MONITOR AND EDUCATE ON OXYGEN SATURATION DURING ADLS/IADLS, NOTIFY PHYSICIAN AND/OR THE RN CLINICAL CSM CONSULTANT FOR PHYSICIAN NOTIFICATION AND IF O2 SATS BELOW PHYSICIAN ORDERED PARAMETERS AFTER 10 MIN OF REST PT / MATERIAL CUTTER TO MONITOR FOR HYPO/HYPERGLYCEMIA AND CONDUCT ROUTINE FOOT INSPECTIONS. RECORD PATIENT REPORTED BLOOD SUGAR LEVELS AND NOTIFY PHYSICIAN AND/OR THE RN CLINICAL CSM CONSULTANT FOR PHYSICIAN NOTIFICATION IF BLOOD SUGAR LEVELS ARE OUTSIDE ORDERED PARAMETERS. TEACH PATIENT/CAREGIVER ON DAILY FOOT INSPECTIONS PT / MATERIAL CUTTER TO EDUCATE ON HIP REPLACEMENT SELF-MANAGEMENT PT / MATERIAL CUTTER TO OBSERVE WOUND/INCISION AND/OR INTACT DRESSING ON RIGHT HIP AND REPORT EARLY SIGNS AND SYMPTOMS OF WOUND DETERIORATION, COMPLICATIONS, OR INFECTION TO PHYSICIAN AND/OR THE RN CLINICAL CSM CONSULTANT FOR PHYSICIAN NOTIFICATION. PT/MATERIAL CUTTER TO IDENTIFY FALL RISK FACTORS; EDUCATE THE PATIENT/CAREGIVER ON WAYS TO REDUCE FALL RISK FACTORS AND ESTABLISH HOME EXERCISE PROGRAM TO MINIMIZE FALL RISK. MAY TEACH THE PATIENT FLOOR RECOVERY WHEN CLINICALLY APPROPRIATE PT / MATERIAL CUTTER TO INSTRUCT PATIENT/CAREGIVER ON RISK FOR HOSPITALIZATION/EMERGENCY [...] End Date/Time Encounter Type Admission Type Attending [facility] Care Department Encounter ID Discharge Date Discharge Status Discharge Condition Discharge Reason Percent Goals Met 2023-12-27 00:00:00 2024-01-22 00:00:00 Outpatient [facility] [id number] 2024-01-22 00:00:00 DISCHARGE TO HOME OR SELF CARE INDEPENDEN T IN THE HOME HH OR PAL- GOALS MET 96.15
--- OUTSIDE RECORDS SUMMARY | 2024-04-01 13:08 | XMS_ITS | Clinical Summary ---
Author Organization Unknown Care Team Providers Care Fruit And Vegetable Classer Name Role Phone MARCELLE OVALLE, KAYLA Unavailable Unavailable MANDA RN, KIP Unavailable Unavailab elaine ROSE LPN, MARY Unavailable Unavailable EMMA PT, SYLVIA Unavailable Unavailable FRANCESCA DRIER AND PULVERIZER TENDER, TORSTEN Unavailable Unavailable SPAASHIA OT, JUANIS Unavailable Unavailable CONDINO POLICE PATROL OFFICER/VAZQUEZ, KEVIN Unavailable Unav ailable Payers Payer Name Policy Type Policy Number Effective Date Expira tion Date MEDICARE.NGS.PDGM [id number] Problems Condition Name Condition Details Condition Category [...] 04-16 00:00: 00 ATHSCL HEART DISEASE OF [place] CORONARY ARTERY W/O ANG PCTRS Active 04-16 00:00: 00 SICK SINUS SYNDROME Active 04-16 00:00: 00 UNSPECIFIED RIGHT BUNDLE-BRANC H BLOCK Active 04-16 00:00: 00 NONRHEUMATIC AORTIC (VALVE) STENOSIS Active 04-16 00:00: 00 HYPERLIPIDEM IA, UNSPECIFIED Active 04-16 00:00: 00 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 Med Classific ation: Cardiovas cular Therapy Agents acetaminoph en 325 mg capsule 12-06 00:00: 00 Yes [id number] PAIN 2 capsule EVERY 6 HOURS 2 capsule EVERY 6 HOURS (route: oral) Med Classific ation: Analgesic , Anti-infl ammatory or Antipyret ic atorvastati n 10 mg tablet 12-06 00:00: 00 Yes [id number] HLD 1 tablet BEDTIME 1 tablet BEDTIME (route: oral) Med Classific ation: Cardiovas cular Therapy Agents carvedilol 6.25 mg tablet 12-06 00:00: 00 Yes [id number] HTN 1 tablet 2 TIMES DAILY 1 tablet 2 TIMES DAILY (route: oral) Med Classific ation: Cardiovas cular Therapy Agents Dulcolax (bisacodyl) 5 mg tablet,mireya yed release 12-06 00:00: 00 12-26 00:00 :00 No [id number] CONSTIPATIO N 1-2 tablet DAILY 1-2 tablet DAILY (route: oral) Med Classific ation: Gastroint estinal Therapy Agents enoxaparin 30 mg/0.3 mL subcutaneou s syringe 12-06 00:00: 00 12-26 00:00 :00 No [id number] ANTICOAGULA TION Per instruc tions DAILY Per instructio ns DAILY (route: subcutaneo us) Med Classific ation: Hematolog ical Agents glucosamine -chondroiti n 500 mg-400 mg capsule 12-06 00:00: 00 12-26 00:00 :00 No [id number] SUPPLEMENT 1 capsule DAILY 1 capsule DAILY (route: oral) Med Classific ation: Alternati ve Therapy Multivitami n 50 Plus tablet 12-06 00:00: 00 Yes [id number] SUPPLEMENT 1 tablet DAILY 1 tablet DAILY (route: oral) Med Classific ation: Electroly te Balance-N utritiona l Products oxycodone 5 mg capsule 12-06 00:00: 00 12-26 00:00 :00 No [id number] PAIN 1 capsule EVERY 4 HOURS 1 capsule EVERY 4 HOURS (route: oral) Med Classific ation: Analgesic , Anti-infl ammatory or Antipyret ic Eliquis 2.5 mg tablet 12-26 00:00: 00 Yes [id number] BLOOD THINNER 1 tablet EVERY 12 HOURS [...] ON ADMISSION AND PRN FOR RN TO ASSESS/SHAPER HAND TO OBSERVE PATIENT, WITH NOTIFICATION TO THE [...] ON ADMISSION AND PRN FOR RN TO ASSESS/SHAPER HAND TO OBSERVE PATIENT, WITH NOTIFICATION TO THE [...] TO EVALUATE, OBSERVE / ASSESS, AND MONITOR, DRIER AND PULVERIZER TENDER TO OBSERVE AND MONITOR, PROVIDE SKILLED THERAPEUTIC INTERVENTION, ACTIVITY, EDUCATION, AND TRAINING TO ADDRESS; PT/DRIER AND PULVERIZER TENDER TO PROVIDE GAIT TRAINING FOR IMPROVED MOBILITY AND /OR TO NORMALIZE GAIT PATTERN THERAPEUTIC EXERCISES AND ESTABLISHING A HOME EXERCISE PROGRAM (PT/DRIER AND PULVERIZER TENDER) PT/DRIER AND PULVERIZER TENDER TO PROVIDE STAIR TRAINING SIT TO/FROM STAND TRANSFERS (PT/DRIER AND PULVERIZER TENDER) PT TO ASSESS / DRIER AND PULVERIZER TENDER TO MONITOR FOR AND REPORT EARLY SIGNS OF ANTICOAGULANT TOXICITY TO THE PHYSICIAN AND/OR THE RN CLINICAL CLOUD AUTOMATION TESTER FOR PHYSICIAN NOTIFICATION AND TO PROVIDE PATIENT/CAREGIVER EDUCATION ON ANTICOAGULANT THERAPY PT / DRIER AND PULVERIZER TENDER TO MONITOR AND EDUCATE ON OXYGEN SATURATION DURING ADLS/IADLS, NOTIFY PHYSICIAN AND/OR THE RN CLINICAL CLOUD AUTOMATION TESTER FOR PHYSICIAN NOTIFICATION AND IF O2 SATS BELOW PHYSICIAN ORDERED PARAMETERS AFTER 10 MIN OF REST PT / DRIER AND PULVERIZER TENDER TO MONITOR FOR HYPO/HYPERGLYCEMIA AND CONDUCT ROUTINE FOOT INSPECTIONS. RECORD PATIENT REPORTED BLOOD SUGAR LEVELS AND NOTIFY PHYSICIAN AND/OR THE RN CLINICAL CLOUD AUTOMATION TESTER FOR PHYSICIAN NOTIFICATION IF BLOOD SUGAR LEVELS ARE OUTSIDE ORDERED PARAMETERS. TEACH PATIENT/CAREGIVER ON DAILY FOOT INSPECTIONS PT / DRIER AND PULVERIZER TENDER TO EDUCATE ON HIP REPLACEMENT SELF-MANAGEMENT PT / DRIER AND PULVERIZER TENDER TO OBSERVE WOUND/INCISION AND/OR INTACT DRESSING ON RIGHT HIP AND REPORT EARLY SIGNS AND SYMPTOMS OF WOUND DETERIORATION, COMPLICATIONS, OR INFECTION TO PHYSICIAN AND/OR THE RN CLINICAL CLOUD AUTOMATION TESTER FOR PHYSICIAN NOTIFICATION. PT/DRIER AND PULVERIZER TENDER TO IDENTIFY FALL RISK FACTORS; EDUCATE THE PATIENT/CAREGIVER ON WAYS TO REDUCE FALL RISK FACTORS AND ESTABLISH HOME EXERCISE PROGRAM TO MINIMIZE FALL RISK. MAY TEACH THE PATIENT FLOOR RECOVERY WHEN CLINICALLY APPROPRIATE PT / DRIER AND PULVERIZER TENDER TO INSTRUCT PATIENT/CAREGIVER ON RISK FOR HOSPITALIZATION/EMERGENCY ROOM VISITS, TEACH SIGNS AND SYMPTOMS THAT PUT PATIENT AT RISK, WHEN TO NOTIFY NURSE/PHYSICIAN OF COMPLICATIONS/DECLINE, AND WHEN TO CALL 911. [code = AGENCY MAY PERFORM A RESUMPTION OF CARE VISIT FOLLOWING ANY HOSPITAL ADMISSION. PT TO EVALUATE, OBSERVE / ASSESS, AND MONITOR, DRIER AND PULVERIZER TENDER TO OBSERVE AND MONITOR, PROVIDE SKILLED THERAPEUTIC INTERVENTION, ACTIVITY, EDUCATION, AND TRAINING TO ADDRESS; PT/DRIER AND PULVERIZER TENDER TO PROVIDE GAIT TRAINING FOR IMPROVED MOBILITY AND /OR TO NORMALIZE GAIT PATTERN THERAPEUTIC EXERCISES AND ESTABLISHING A HOME EXERCISE PROGRAM (PT/DRIER AND PULVERIZER TENDER) PT/DRIER AND PULVERIZER TENDER TO PROVIDE STAIR TRAINING SIT TO/FROM STAND TRANSFERS (PT/DRIER AND PULVERIZER TENDER) PT TO ASSESS / DRIER AND PULVERIZER TENDER TO MONITOR FOR AND REPORT EARLY SIGNS OF ANTICOAGULANT TOXICITY TO THE PHYSICIAN AND/OR THE RN CLINICAL CLOUD AUTOMATION TESTER FOR PHYSICIAN NOTIFICATION AND TO PROVIDE PATIENT/CAREGIVER EDUCATION ON ANTICOAGULANT THERAPY PT / DRIER AND PULVERIZER TENDER TO MONITOR AND EDUCATE ON OXYGEN SATURATION DURING ADLS/IADLS, NOTIFY PHYSICIAN AND/OR THE RN CLINICAL CLOUD AUTOMATION TESTER FOR PHYSICIAN NOTIFICATION AND IF O2 SATS BELOW PHYSICIAN ORDERED PARAMETERS AFTER 10 MIN OF REST PT / DRIER AND PULVERIZER TENDER TO MONITOR FOR HYPO/HYPERGLYCEMIA AND CONDUCT ROUTINE FOOT INSPECTIONS. RECORD PATIENT REPORTED BLOOD SUGAR LEVELS AND NOTIFY PHYSICIAN AND/OR THE RN CLINICAL CLOUD AUTOMATION TESTER FOR PHYSICIAN NOTIFICATION IF BLOOD SUGAR LEVELS ARE OUTSIDE ORDERED PARAMETERS. TEACH PATIENT/CAREGIVER ON DAILY FOOT INSPECTIONS PT / DRIER AND PULVERIZER TENDER TO EDUCATE ON HIP REPLACEMENT SELF-MANAGEMENT PT / DRIER AND PULVERIZER TENDER TO OBSERVE WOUND/INCISION AND/OR INTACT DRESSING ON RIGHT HIP AND REPORT EARLY SIGNS AND SYMPTOMS OF WOUND DETERIORATION, COMPLICATIONS, OR INFECTION TO PHYSICIAN AND/OR THE RN CLINICAL CLOUD AUTOMATION TESTER FOR PHYSICIAN NOTIFICATION. PT/DRIER AND PULVERIZER TENDER TO IDENTIFY FALL RISK FACTORS; EDUCATE THE PATIENT/CAREGIVER ON WAYS TO REDUCE FALL RISK FACTORS AND ESTABLISH HOME EXERCISE PROGRAM TO MINIMIZE FALL RISK. MAY TEACH THE PATIENT FLOOR RECOVERY WHEN CLINICALLY APPROPRIATE PT / DRIER AND PULVERIZER TENDER TO INSTRUCT PATIENT/CAREGIVER ON RISK FOR HOSPITALIZATION/EMERGENCY [...] End Date/Time Encounter Type Admission Type Attending [facility] Care Department Encounter ID Discharge Date Discharge Status Discharge Condition Discharge Reason Percent Goals Met 2023-12-27 00:00:00 2024-01-22 00:00:00 Outpatient [facility] [id number] 2024-01-22 00:00:00 DISCHARGE TO HOME OR SELF CARE INDEPENDEN T IN THE HOME HH OR PAL- GOALS MET 96.15
--- NOTE | 2024-04-01 13:14 | A.OFFVIS_ITS ---
Intake Visit Reasons: 2 week follow up left fistulagram Intake Note: 2 week follow up Left UE fistulagram 03/18/24. Pt states since procedure has been working well, no further issues w/ bleeding. Pt states there is one stitch that needs to be removed. Accompanied by: Self / Same As Patient Allergies cephalexin [From KEFLEX] Allergy (Severe, Verified 04/01/24 13:16) ANGIO EDEMA lisinopril [LISINOPRIL] Allergy (Severe, Verified 04/01/24 13:16) FACIAL EDEMA simvastatin Allergy (Severe, Verified 04/01/24 13:16) renal insufficiency amlodipine Allergy (Mild, Verified 04/01/24 13:16) renal insuff in combo w/ statin rx HPI HPI 2 week follow up left fistulagram: Details: Very pleasant 83-year-old gentleman status post left upper extremity fistulogram. Reports he is doing extremely well. Bleeding episodes post dialysis stopped. He has no difficulty with dialysis. No difficulty postprocedure. Now for routine postprocedure follow-up. He is currently on a Sunday dialysis regimen [facility] Medical History Avascular necrosis of bone of right hip Presence of arterial-venous shunt (for dialysis) History of transfusion of packed red blood cells ESRD (end stage renal disease) on dialysis Normally functioning cardiac pacemaker present Essential hypertension Valvular heart disease Chronic heart failure with preserved ejection fraction (HFpEF) Pulmonary hypertension Arthritis Anemia NAVA (dyspnea on exertion) Rhabdomyolysis due to statin therapy Chronic kidney disease Diabetes Atherosclerotic cardiovascular disease Aortic valvular disease Pacemaker CHF (congestive heart failure) HTN (hypertension) Surgical History 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, 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) History of cardiac catheterization (~08/2020) History of tonsillectomy Status cardiac pacemaker S/P excision of lipoma Hx of colonoscopy Family History Father Stroke Mother Stroke Diabetes Social History Household Members: Spouse Housing: Apartment Are you a primary career and guidance counselor to a significant other at home: No Do you presently have visiting nurse or other home services: Yes (elder services, meals on wheels) Alcohol intake: current Alcohol intake frequency: former alcohol drinker Alcohol type: hard liquor Patient Tobacco Use Status: Never used Tobacco Advance Directives Date on File: 04/26/20 service: Yes Current occupational status: retired Current occupation: rt handed Review of Systems Const All systems reviewed & are unremarkable except as noted in HPI and below Reports no additional complaints ENT Reports Normal hearing present Card Denies chest pain, Denies chest pain at rest, Denies chest pain with activity and Denies pedal edema Resp Denies cough GI Denies abdominal pain Musc Denies abnormal gait, Denies muscle cramps and Denies radiating pain into limb Skin/Breast Denies skin ulcer and Denies wounds Neuro Reports Normal hearing present and Denies abnormal gait Psych Reports no additional complaints Physical Exam Const General: cooperative, healthy appearing and comfortable Orientation/consciousness: oriented to person, oriented to place and oriented to time HEENT Head: Yes normal to inspection Neck Neck: Yes normal visual inspection Carotids: no bruits Chest Chest palpation & inspection: normal inspection of the chest Resp Effort & Inspection: normal respiratory effort and able to speak in complete sentences Auscultation: clear to auscultation bilaterally, no crackles, no rales, no rhonchi and no wheezes Cardio Rate: regular rate Rhythm: regular rhythm Heart sounds: S1 normal heart sound present and S2 normal heart sound present Bruits: no carotid bruits Peripheral pulses: Peripheral pulses 2+ throughout GI Inspection: Yes normal to inspection Skin Wounds: no wounds Hair: normal Neuro General: oriented to person, oriented to place and oriented to time Cranial nerves: Yes CN's II-XII intact bilaterally and Yes Normal hearing present Cognition (Neuro): normal cognition Motor exam (neuro): 5/5 motor strength present throughout Extrem Other: Left upper extremity fistula excellent thrill and bruit General: No clubbing, No cyanosis and No edema Psych Appearance: grossly normal Mental Status: mental status grossly normal Speech and movement: Normal speech and movement present Assessment & Plan Assessment & Plan (1) ESRD (end stage renal disease): Comment: 05/24/2020 - left upper extremity brachiocephalic fistula creation 03/18/2024 - left arm fistulogram Code(s): N18.6 - End stage renal disease Category: Medical Plan: In short patient has a well functioning left upper extremity fistula. He does have some central venous stenosis. It appears to be resolved with endovascular plasty. I will bring him back in 3 months for a follow-up exam to ensure that it is functioning properly. Should there be any interval issues happy to see him back sooner. Thank you for allowing us to assist in his care. Please note a longitudinal relationship has been created with the patient and we have been following and surveillance this chronic condition. Coding Level of Care Code Est Pt Level 3 (64108) Complex EM visit Add On G2211 Diagnoses ESRD (end stage renal disease) N18.6
== END 2024-04-01 13:30 | disposition home or self-care (01) ==
PROVIDERS: PCP Family Medicine; Visit Provider Surgery Vascular Surgery
DX: N18.6 End stage renal disease (principal)
CPT/HCPCS: 99213; G2211

== ENCOUNTER → 2024-04-01 13:05 | Outpatient (BNVA) | payer MEDICARE, SELFPAY | PROVIDERS: PCP Family Medicine; Visit Provider Surgery Vascular Surgery | DX: N18.6 End stage renal disease (principal) | CPT/HCPCS: 99212 ==

== ENCOUNTER 2024-05-13 13:10 | Outpatient (AMB) | payer MEDICARE, SELFPAY ==
[2024-05-13 13:35] VITALS: BP 110/58; PULSE 64; BMI 26.0
--- NOTE | 2024-05-13 13:35 | MHC.OFFVIS ---
Vital Signs 05/13/24 13:35 Height 5 ft 5 in Weight 156 lb 8.451 oz BMI 26.0 BP 110/58 L Blood Pressure Location Lt brachial Position Sitting Pulse 64 Pulse Source Pulse Oximeter Intake Visit Reasons: F/U r/s fr 02/19/24 w/ device check Allergies cephalexin [From KEFLEX] Allergy (Severe, Verified 04/01/24 13:16) ANGIO EDEMA lisinopril [LISINOPRIL] Allergy (Severe, Verified 04/01/24 13:16) FACIAL EDEMA simvastatin Allergy (Severe, Verified 04/01/24 13:16) renal insufficiency amlodipine Allergy (Mild, Verified 04/01/24 13:16) renal insuff in combo w/ statin rx Medication List - Last Reconciled 05/13/24 by Pro Alexander MD acetaminophen 650 mg (2 x 325 mg) PO Q6H PRN 30 days aspirin (Adult Aspirin Regimen) 81 mg PO DAILY atorvastatin 10 mg PO BEDTIME blood sugar diagnostic As directed carvedilol 6.25 mg PO BID furosemide 40 mg PO DAILY lancets As directed losartan 25 mg PO DAILY multivitamin 1 tab PO DAILY walker Folding Front wheeled walker HPI Comments Details: George returns for follow-up regarding his cardiac issues. Overall, he states he is feeling good. No cardiac complaints whatsoever. No angina or anything along those lines. On dialysis. [facility] Medical History Avascular necrosis of bone of right hip Presence of arterial-venous shunt (for dialysis) History of transfusion of packed red blood cells ESRD (end stage renal disease) on dialysis Normally functioning cardiac pacemaker present Essential hypertension Valvular heart disease Chronic heart failure with preserved ejection fraction (HFpEF) Pulmonary hypertension Arthritis Anemia NAVA (dyspnea on exertion) Rhabdomyolysis due to statin therapy Chronic kidney disease Diabetes Atherosclerotic cardiovascular disease Aortic valvular disease Pacemaker CHF (congestive heart failure) HTN (hypertension) Surgical History 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, 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) History of cardiac catheterization (~08/2020) History of tonsillectomy Status cardiac pacemaker S/P excision of lipoma Hx of colonoscopy Family History Father Stroke Mother Stroke Diabetes Social History Household Members: Spouse Housing: Apartment Are you a primary career and guidance counselor to a significant other at home: No Do you presently have visiting nurse or other home services: Yes (elder services, meals on wheels) Alcohol intake: current Alcohol intake frequency: former alcohol drinker Alcohol type: hard liquor Patient Tobacco Use Status: Never used Tobacco Advance Directives Date on File: 04/26/20 service: Yes Current occupational status: retired Current occupation: rt handed Review of Systems Const Denies weakness ENT Denies dizziness Card Denies chest pain, Denies chest pain with activity, Denies syncope, Denies rapid heart rate, Denies pedal edema, Denies edema, Denies leg edema, Denies lightheadedness, Denies palpitations, Denies dyspnea, Denies dyspnea on exertion and Denies orthopnea Resp Denies cough, Denies dyspnea and Denies dyspnea on exertion GI Denies hematochezia and Denies change in stool character Musc Denies abnormal gait, Denies muscle cramps, Denies muscle weakness, Denies numbness, Denies radiating pain into limb and Denies tingling Neuro Denies abnormal gait, Denies dizziness, Denies syncope, Denies numbness, Denies tingling and Denies weakness Endo Denies palpitations Physical Exam Vital Signs: Last Vital Signs Pulse 64 05/13/24 13:35 BP 110/58 L 05/13/24 13:35 BMI result Body Mass Index 26.0 Const General: comfortable and no acute distress Orientation/consciousness: patient oriented x3 HEENT Other: Unremarkable Head: Yes normal to inspection Neck Neck: Yes normal visual inspection Chest Chest palpation & inspection: normal inspection of the chest Resp Auscultation: clear to auscultation bilaterally Cardio Palpation: normal PMI Heart sounds: S1 normal heart sound present, S2 normal heart sound present, no gallops, Murmur heart sound present systolic I/ and at the right sternal border and no rubs GI Palpation (GI): Soft to palpation Back/Spine/Pelvis Other: unremarkable Skin General skin exam: no rashes or lesions noted Neuro General: patient oriented x3 Extrem General: Yes normal to inspection Psych Mental Status: mental status grossly normal Office Procedures Cardiac Device Check Cardiac Device Check Details: Pacemaker interrogated today. Dual-chamber device, programmed DDDR. Battery status more than 8 months. Normal lead parameters. Atrial pacing 4%. Ventricular pacing > 99%. No significant arrhythmias. Overall, normal device function. [id number] Cardiac Device Check, pacemaker dual lead Procedure code (CPT) selection complete Assessment & Plan Assessment & Plan (1) Cardiomyopathy: Code(s): I42.9 - Cardiomyopathy, unspecified Category: Medical Plan: In the most recent echocardiogram, LVEF is 40-45%. Inferior wall motion abnormalities. Overall, chronic findings. LVEF itself has been up and down. Clinically, he does not have any symptoms or signs of congestive heart failure. No significant coronary disease to explain the cardiomyopathy. He remains on a small dose of carvedilol and losartan. No changes. (2) Atherosclerotic cardiovascular disease: Code(s): I25.10 - Atherosclerotic heart disease of [place] coronary artery without angina pectoris Category: Medical Plan: Cardiac catheterization data reviewed. He had ostial disease in the acute marginal branch but otherwise normal coronary arteries. Remains on aspirin. (3) Aortic valvular disease: Code(s): I35.9 - Nonrheumatic aortic valve disorder, unspecified Category: Medical Plan: In the last echocardiogram, moderate aortic valve calcification and moderate stenosis. Mean gradient across aortic valve was 16mm Hg with a calculated valve area of 1.2 cm2. We can continue to follow this. (4) Essential hypertension: Code(s): I10 - Essential (primary) hypertension Category: Medical Plan: Stable. No changes. (5) Pulmonary hypertension: Code(s): I27.20 - Pulmonary hypertension, unspecified Category: Medical Plan: Has had variable readings. Most recently unremarkable. Likely all from left heart dysfunction. (6) Other and unspecified hyperlipidemia: Code(s): E78.5 - Hyperlipidemia, unspecified Category: Medical Plan: Last available LDL 40 mg/dL. In the past, he had rhabdomyolysis with simvastatin combined with amlodipine. Currently off amlodipine and on Lipitor. May recheck with routine PCP labs. (7) ESRD (end stage renal disease) on dialysis: Comment: 05/24/2020 - left upper extremity brachiocephalic fistula creation Code(s): N18.6 - End stage renal disease; Z99.2 - Dependence on renal dialysis Category: Medical Plan: On hemodialysis. Orders: Orders CA echo transthoracic complete 6 Months I35.9 - Nonrheumatic aortic valve disorder, unspecified Coding Level of Care Code Est Pt Level 4 (24322) Diagnoses Cardiomyopathy I42.9 Atherosclerotic cardiovascular disease I25.10 Aortic valvular disease I35.9 Essential hypertension I10 Pulmonary hypertension I27.20 Other and unspecified hyperlipidemia E78.5 ESRD (end stage renal disease) on dialysis N18.6; Z99.2 CPT Codes Cardiac Device Check - Cardiac Device 2: [id number] Cardiac Device Check, pacemaker dual lead ([id number])
--- OUTSIDE RECORDS SUMMARY | 2024-05-13 14:09 | XMS_ITS ---
Author Organization [facility] Address Unknown Problems Problem Status Start Date End Date PERIPROSTHETIC FRACTURE AROU [place] INTERNAL PROSTHETIC RIGHT HIP JOINT, SUBSEQUENT ENCOUNTER (Primary) (M97.01XD - ICD-10-CM) ACTIVE 12/24/2023 END STAGE RENAL DISEASE (N18.6 - ICD-10-CM) ACTIVE 12/24/2023 DEPENDENCE ON RENAL DIALYSIS (Z99.2 - ICD-10-CM) ACTIV E 12/24/2023 UNSPECIFIED SYSTOLIC (CONGES TIVE) HEART FAILURE (I50.20 - ICD-10-CM) ACTIVE 12/24/2023 HYPERTENSIVE CHRONIC KIDNEY DISEASE WITH STAGE 5 CHRONIC KIDNEY DISEASE OR END STAGE RENAL DISEASE (I12.0 - ICD-10-CM) ACTIVE 12/24/2023 TYPE 2 DIABETES MELLITUS WIT HOUT COMPLICATIONS (E11.9 - ICD-10-CM) ACTIVE 12/24/2023 PULMONARY HYPERTENSION, UNSPECIFIED (I27.20 - ICD-10-C M) ACTIVE 12/24/2023 UNSPECIFIED PROTEIN-CALORIE MALNUTRITION (E46 - ICD-10 -CM) ACTIVE 12/24/2023 OTHER SPECIFIED ARTHRITIS, U NSPECIFIED SITE (M13.80 - ICD-10-CM) ACTIVE 12/24/2023 PRESENCE OF CARDIAC PACEMAKER (Z95.0 - ICD-10-CM) ACTI VE 12/24/2023 HYPERLIPIDEMIA, UNSPECIFIED (E78.5 - ICD-10-CM) ACTIVE 12/24/2023 OTHER IRON DEFICIENCY ANEMIAS (D50.8 - ICD-10-CM) ACTI VE 12/24/2023 ATHEROSCLEROTIC HEART DISEAS E OF [place] CORONARY ARTERY WITHOUT ANGINA PECTORIS (I25.10 - ICD-10-CM) ACTIVE 12/24/2023 NONRHEUMATIC AORTIC (VALVE) STENOSIS (I35.0 - ICD-10-C M) ACTIVE 12/24/2023 Encounters Encounter Performer Performer Role Encounter Diagnoses Location Date Discharge - Discharged / Transferred to SNF - [facility] 4 07:12 pm EDT - 4 09:40 pm EDT Immunizations Vaccine Date Influenza PPSV23 (Previous Pneumococcal Polysaccha ride)Vaccine 08/07/2013 12:00 pm EDT (COVID-19) [id number] Updated Pfizer Vacc ine 01/14/2023 12:00 am EDT (Pneumococcal) PPSV23- Polysaccharide 23 -valent Vaccine 01/11/2018 12:00 am EDT Social History
--- OUTSIDE RECORDS SUMMARY | 2024-05-13 14:09 | XMS_ITS | Encounter Summary ---
Author Organization [facility] Address [address] [address] Phone Care Team Providers Care Resident Hall Director Name Role Phone Edwar Trujillo MD Primary Care Provider [phone] Encounter Details Date Type Department Care Team (Late st Contact Info) Description 05/07/2024 Treatment [facility] [address] [address] Amanedep López MD [address] [address] Social History Tobacco Use Types Packs/Day Years Used Date Smoking Tobacco: Never Smokeless Tobacco: Never Alcohol Use Standard Drinks/Week Comments Yes 0 (1 standard drink = 0.6 oz pure alcohol) Alcoholic Drinks/day: Occasional social drink Sex and Gender Information Value Date Recorded Sex Assigned at Not on file Legal Sex Male 5:09 PM EST Gender Identity Not on file Sexual Orientation Not on file documented as of this encounter Miscellaneous Notes * Dialysis Note - Amandeep López MD - 05/07/2024 12:00 AM EST Patient: George Levy : 1940 Note Type: Dialysis Rounds-Basic Service Date: 05/07/2024 This patient was personally seen for a basic visit as part of routine monthly dialysis care for end stage renal disease. Attending Supplier Engineer: AMANDEEP LÓPEZ MD Dialysis Location: [facility] Schedule: Shift: 2 OVERVIEW Patient is stable. HOME MEDICATIONS [facility]ations [facility]. [facility] Medications acetaminophen (TYLENOL 8 HOUR) CR tablet as needed for pain Start Date: aspirin EC tablet Take 1 tablet by mouth 1 (one) time each day Start Date: atorvastatin (LIPITOR) tablet Take 1 tablet by mouth 1 (one) time each day Start Date: carvedilol (Coreg) 6.25 MG tablet Take 1 tablet (6.25 mg total) by mouth in the morning and 1 tablet (6.25 mg total) in the evening. Take with meals. Start Date: 04/07/2024 carvedilol (Coreg) 6.25 MG tablet Take 1 tablet (6.25 mg total) by mouth in the morning and 1 tablet (6.25 mg total) in the evening. Start Date: 04/07/2024 dilTIAZem (CARDIZEM SR) 12 hr capsule Take 1 capsule by mouth at bed time Start Date: ferrous sulfate tablet 325 mg Take 1 tablet by mouth 1 (one) time each day Start Date: furosemide (LASIX) 40 MG tablet TAKE ONE TABLET BY MOUTH EVERY DAY Start Date: 03/11/2024 hydrALAZINE (APRESOLINE) tablet Take 100 mg by mouth 2 (two) times a day Start Date: 08/09/2015 labetalol (NORMODYNE) 200 MG tablet TAKE ONE TABLET BY MOUTH TWICE A DAY Start Date: 02/14/2022 MULTIVITAMIN ADULT EXTRA C PO Take 1 capsule by mouth 1 (one) time each day Start Date: Current [facility] Allergies Allergen: CARVEDILOL Reaction: Other (see comments) Allergen: CEPHALEXIN Reaction: Other (see comments) Allergen: LISINOPRIL Reaction: Other (see comments) BP AND FLUID ASSESSMENT Acceptable blood pressure. Fluid status acceptable. ADEQUACY ASSESSMENT Kt/V, Natural Log 1.33 (04/23/24) 1.46 (03/19/24) 1.63 (02/20/24) UREA REDUCTION RATIO (%) 69 (04/23/24) 73 (03/19/24) 76 (02/20/24) BUN 111 (04/23/24) 95 (03/19/24) 87 (02/20/24) BUN Post Dialysis 34 (04/23/24) 26 (03/19/24) 21 (02/20/24) Creatinine 7.33 (04/23/24) 6.66 (03/19/24) 6.62 (02/20/24) Bicarbonate (CO2) 25 (04/23/24) 24 (03/19/24) 24 (02/20/24) Sodium 138 (04/23/24) 136 (03/19/24) 135 (02/20/24) ANEMIA ASSESSMENT Hgb 10.1 (04/23/24) 9.4 (04/14/24) 9.6 (04/07/24) Iron Saturation (TSat) 41 (04/23/24) 75 (03/19/24) 65 (02/20/24) Ferritin 1,599 (04/23/24) 1,550 (03/19/24) 1,489 (02/20/24) Iron 92 (04/23/24) 156 (03/19/24) 129 (02/20/24) TIBC 225 (04/23/24) 209 (03/19/24) 199 (02/20/24) MCV 100.3 (04/23/24) 95.2 (03/19/24) 96.6 (02/20/24) Platelets 67 (04/23/24) 54 (03/19/24) Test Canceled (02/20/24) BMM ASSESSMENT Calcium, Adjusted Total 9.1 04/23/24 8.9 03/19/24 9.1 02/20/24 Calcium 8.9 04/23/24 8.7 03/19/24 8.9 02/20/24 Phosphorus, Serum 6.5 04/23/24 5.4 03/19/24 4.4 02/20/24 Ca*PO4 57.8 04/23/24 47.0 03/19/24 39.2 02/20/24 PTH, Intact 339 04/23/24 Magnesium 2.8 04/23/24 2.7 03/19/24 2.5 02/20/24 Alkaline Phosphatase 120 04/23/24 144 03/19/24 150 02/20/24 Aluminum 4 04/23/24 3 03/26/24 NUTRITION ASSESSMENT Albumin 3.8 04/23/24 3.7 03/19/24 3.8 02/20/24 Potassium 5.0 04/23/24 4.8 03/19/24 5.0 02/20/24 Hemoglobin A1C 5.0 04/23/24 ADDITIONAL LABS White Blood Cells 5.3 (04/23/24) 6.6 (03/19/24) 6.8 (02/20/24) Cholesterol 104 (04/23/24) HDL 46 (04/23/24) LDL-Calc 42 (04/23/24) Triglycerides 81 (04/23/24) Hep B Surface Antibody 756 (04/23/24) 667 (03/19/24) Uric Acid 6.9 (04/23/24) Signed by: AMANDEEP LÓPEZ MD on 05/07/2024 at 02:16:46 PM documented in this encounter Plan of Treatment Not on file documented as of this encounter Visit Diagnoses Not on filedocumented in this encounter Care Teams Resident Hall Director Relationship Specialty Start Date End Date Edwar Trujillo MD [address] [place] [address] [address] [place] PCP - General 04/26/20 documented as of this encounter
--- OUTSIDE RECORDS SUMMARY | 2024-05-13 14:09 | XMS_ITS | Continuity of Care Document ---
Author Name [facility] Organization [facility] Care Team Providers Care Poultry Farm Laborer Name Role Phone [facility] Unavailable Unavailable Encounters Combined list of: 1) Encounters from Department of Veterans Affairs facilities going back up to thelast 18 months. 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 Location Location Details Encounter Type Encounter Number Reason For Visit Attending Provider ADM Date DC Date Status Disposition Source [facility] Outpatient Encounter [id number] 11/14 [place] [facility]
--- OUTSIDE RECORDS SUMMARY | 2024-05-13 14:09 | XMS_ITS | Encounter Summary ---
Author Organization [facility] Address [address] [address] Phone Care Team Providers Care Cork Molder Name Role Phone Edwar Trujillo MD Primary Care Provider [phone] Encounter Details Date Type Department Care Team (Late st Contact Info) Description 04/15/2024 Treatment [facility] [address] [address] Amandeep López MD [address] [address] Social History Tobacco Use Types [...] Dialysis Note - Amandeep López MD - 04/15/2024 12:00 AM EST Patient: George Levy : 1940 Note Type: Dialysis Rounds-Basic Telehealth Service Date: 04/15/2024 Telehealth encounter using audiovisual technology, performed according to state requirements. Appropriate patient consent obtained. This patient was personally seen for a basic visit as part of routine monthly dialysis care for end stage renal disease. Attending Lens Cutter: AMANDEEP LÓPEZ MD Dialysis Location: [facility] Schedule: Shift: 2 OVERVIEW Patient is stable. HOME MEDICATIONS Medications reviewed. Current [facility] Outpatient Medications acetaminophen (TYLENOL 8 HOUR) CR [...] (one) time each day Start Date: Current [facility] Allergies Allergen: CARVEDILOL Reaction: Other (see comments) Allergen: CEPHALEXIN Reaction: Other (see comments) Allergen: LISINOPRIL Reaction: Other (see comments) BP AND FLUID ASSESSMENT Acceptable blood pressure. Fluid status acceptable. ADEQUACY ASSESSMENT Kt/V, Natural Log 1.46 (03/19/24) 1.63 (02/20/24) UREA REDUCTION RATIO (%) 73 (03/19/24) 76 (02/20/24) BUN 95 (03/19/24) 87 (02/20/24) BUN Post Dialysis 26 (03/19/24) 21 (02/20/24) Creatinine 6.66 (03/19/24) 6.62 (02/20/24) Bicarbonate (CO2) 24 (03/19/24) 24 (02/20/24) Sodium 136 (03/19/24) 135 (02/20/24) ANEMIA ASSESSMENT Hgb 9.6 (04/07/24) 9.2 (04/02/24) 9.9 (03/19/24) Iron Saturation (TSat) 75 (03/19/24) 65 (02/20/24) Ferritin 1,550 (03/19/24) 1,489 (02/20/24) Iron 156 (03/19/24) 129 (02/20/24) TIBC 209 (03/19/24) 199 (02/20/24) MCV 95.2 (03/19/24) 96.6 (02/20/24) Platelets 54 (03/19/24) Test Canceled (02/20/24) BMM ASSESSMENT Calcium, Adjusted Total 8.9 03/19/24 9.1 02/20/24 Calcium 8.7 03/19/24 8.9 02/20/24 Phosphorus, Serum 5.4 03/19/24 4.4 02/20/24 Ca*PO4 47.0 03/19/24 39.2 02/20/24 Magnesium 2.7 03/19/24 2.5 02/20/24 Alkaline Phosphatase 144 03/19/24 150 02/20/24 Aluminum 3 03/26/24 NUTRITION ASSESSMENT Albumin 3.7 03/19/24 3.8 02/20/24 Potassium 4.8 03/19/24 5.0 02/20/24 ADDITIONAL LABS White Blood Cells 6.6 (03/19/24) 6.8 (02/20/24) Hep B Surface Antibody 667 (03/19/24) Signed by: AMANDEEP LÓPEZ MD on 04/15/2024 at 01:45:59 PM Transcribed by: AMANDEEP LÓPEZ MD on 04/15/2024 at 01:45:59 PM documented in this encounter Plan of Treatment Not on file documented as of this encounter Visit Diagnoses Not on filedocumented in this encounter Care Teams Cork Molder Relationship Specialty Start Date End Date Edwar Trujillo MD [address] [place] [address] DR [address] [place] PCP - General 04/26/20 documented as of this encounter
--- OUTSIDE RECORDS SUMMARY | 2024-05-13 14:09 | XMS_ITS | Patient Health Record ---
Author Organization [facility] Address [address] [place] [address] Care Team Providers Care Cable Armorer Operator Name Role Phone Ronnie OVALLE, Edwar Primary Care Provider Deven Richter Unavailable [phone] ALLERGIES Allergen (clinical drug ingredient) Drug/Non Drug [...] screening colonoscopy (Z12.11) Active confirmed Screening colonoscopy (738266089) Problem Encounter for screening for malignant neoplasm of colon (Z12.11) Active confirmed 614718632 Problem History of adenomatous polyp of colon (Z86.010) Active confirmed 092510509 Problem Colon polyps (K63.5) Active confirmed Polyp of colon (disorder) (72442012) Problem Tubular adenoma of colon (D12.6) Active confirmed Tubular wilman noma of colon (201179241) Problem Heme + stool (R19.5) Active confirmed 02982424 Problem Hx of colonic polyps (Z86.010) Active confirmed History of polyp of colon (595984268) Problem Anemia (D64.9) Active confirmed Anemia (562436427) Problem Gallstones (K80.20) Active confirmed Gallstones (635220385) Problem Long-term use of aspirin therapy (Z79.82) Active confirmed 553510508 Problem Anemia, unspecified type (D64.9) Active confirmed 093162079 Problem Adenoma of transverse colon (D12.3) Active confirmed 588102369 Problem 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 53597822 VITAL SIGNS Blood pressure diastolic 00 mm Hg 02/26/2024 Height 5 ft 5 in in 02/26/2024 Blood pressure systolic 00 mm Hg 02/26/2024 Weight 148 lbs 02/26/2024 BMI 24.63 kg/m2 02/26/2024 Encounters Encounter Location Date Provider Diagnosis [facility] [address] [place] [phone] 07/31/2023 Deven Mccallum Heme + stool R19.5 ; Anemia, unspecified type D64.9 and History of adenomatous polyp of colon Z86.010 [facility] [address] [place] [phone] 02/26/2024 Deven Mccallum Anemia, unspecified type D64.9 [...] Start Date Coverage End Date MEDICARE OF [place] [address] [place] [address] [phone] [id number] JONA FATOU Self - patient is the insured MEDICAL (GENERAL) HISTORY Medical History History ICD Code Colonoscopy in 2002 with the removal of 2 tubular adenomas Colonoscopy 02/11/2008--1 tubular adenom a removed HTN Hyperlipidemia Hospitalized end of 06/13/13 with fluid retention, elevated CPK, and some renal insufficiency--due to Simvastatin and Amlodipine--he was treated and improved--he did not have a OR Denies OR,DM,CVA,Lung disease Pacemaker 02/24/2014 Colonoscopy in 08/2013--tubul ar [...]
--- OUTSIDE RECORDS SUMMARY | 2024-05-13 14:09 | XMS_ITS | Encounter Summary ---
Author Organization [facility] Address [address] [address] Phone Care Team Providers Care Wireless Operator Name Role Phone Edwar Trujillo MD Primary Care Provider [phone] Encounter Details Date Type Department Care Team (Late st Contact Info) Description 04/18/2024 Treatment [facility] [address] [address] Amandeep López MD [address] [address] Social History Tobacco Use Types [...] Dialysis Note - Amandeep López MD - 04/18/2024 12:00 AM EST Patient: George Levy : 1940 Note Type: Dialysis Rounds-Comp Service Date: 04/18/2024 This patient was personally seen for a complete visit as part of routine monthly dialysis care for end stage renal disease. Attending Veterinary Manager: AMANDEEP LÓPEZ MD Dialysis Location: [facility] Schedule: Shift: 2 OVERVIEW Patient is stable. HOME MEDICATIONS Medications reviewed. [facility] Outpatient Medications acetaminophen (TYLENOL 8 HOUR) [...] (one) time each day Start Date: Current [facility] Allergies Allergen: CARVEDILOL Reaction: Other (see comments) Allergen: CEPHALEXIN Reaction: Other (see comments) Allergen: LISINOPRIL Reaction: Other (see comments) BP AND FLUID ASSESSMENT Acceptable blood pressure. Fluid status acceptable. ADEQUACY ASSESSMENT Target met. Prescription compliance acceptable. Kt/V, Natural Log 1.46 (03/19/24) 1.63 (02/20/24) UREA REDUCTION RATIO (%) 73 (03/19/24) 76 (02/20/24) BUN 95 (03/19/24) 87 (02/20/24) BUN Post Dialysis 26 (03/19/24) 21 (02/20/24) Creatinine 6.66 (03/19/24) 6.62 (02/20/24) Bicarbonate (CO2) 24 (03/19/24) 24 (02/20/24) Sodium 136 (03/19/24) 135 (02/20/24) ACCESS ASSESSMENT Vascular access examined. Current access is permanent and functioning well. ANEMIA ASSESSMENT Anemia targets met. Continue current ANGELINA dose. Iron adjusted per protocol. Hgb 9.4 (04/14/24) 9.6 (04/07/24) 9.2 (04/02/24) Iron Saturation (TSat) 75 (03/19/24) 65 (02/20/24) Ferritin 1,550 (03/19/24) 1,489 (02/20/24) Iron 156 (03/19/24) 129 (02/20/24) TIBC 209 (03/19/24) 199 (02/20/24) MCV 95.2 (03/19/24) 96.6 (02/20/24) Platelets 54 (03/19/24) Test Canceled (02/20/24) BMM ASSESSMENT PTH within target. Phosphorus controlled. Phosphorus binders adjusted. Calcium controlled. Bone and mineral metabolism parameters reviewed. Calcium, Adjusted Total 8.9 03/19/24 9.1 02/20/24 Calcium 8.7 03/19/24 8.9 02/20/24 Phosphorus, Serum 5.4 03/19/24 4.4 02/20/24 Ca*PO4 47.0 03/19/24 39.2 02/20/24 Magnesium 2.7 03/19/24 2.5 02/20/24 Alkaline Phosphatase 144 03/19/24 150 02/20/24 Aluminum 3 03/26/24 NUTRITION ASSESSMENT Albumin at goal. Potassium controlled. Albumin 3.7 03/19/24 3.8 02/20/24 Potassium 4.8 03/19/24 5.0 02/20/24 PHYSICAL EXAM Exam performed. Vital Signs Reviewed. Lungs - Clear. CV - Blood pressure noted. No edema. EXT - No ulcers. ADDITIONAL LABS White Blood Cells 6.6 (03/19/24) 6.8 (02/20/24) Hep B Surface Antibody 667 (03/19/24) Signed by: AMANDEEP LÓPEZ MD on 04/18/2024 at 08:39:13 PM Transcribed by: AMANDEEP LÓPEZ MD on 04/18/2024 at 08:39:13 PM documented in this encounter Plan of Treatment Not on file documented as of this encounter Visit Diagnoses Not on filedocumented in this encounter Care Teams Wireless Operator Relationship Specialty Start Date End Date Edwar Trujillo MD [address] [place] [address] [place] [address] [place] PCP - General 04/26/20 documented as of this encounter
--- OUTSIDE RECORDS SUMMARY | 2024-05-13 14:09 | XMS_ITS | Encounter Summary ---
Author Organization [facility] Address [address] [address] Phone Care Team Providers Care Repairer Cylinder Heads Name Role Phone Edwar Trujillo MD Primary Care Provider [phone] Encounter Details Date Type Department Care Team (Late st Contact Info) Description 04/23/2024 Treatment [facility] [address] [address] Amandeep López MD [address] [address] Social History Tobacco Use Types [...] Dialysis Note - Amandeep López MD - 04/23/2024 12:00 AM EST Patient: George Levy : 1940 Note Type: Dialysis Rounds-Basic Service Date: 04/23/2024 This patient was personally seen for a basic visit as part of routine monthly dialysis care for end stage renal disease. Attending Black Topper: AMANDEEP LÓPEZ MD Dialysis Location: [facility] Schedule: Shift: 2 OVERVIEW Patient is stable. HOME MEDICATIONS Medications reviewed. [facility] Outpatient Medications acetaminophen (TYLENOL 8 HOUR) [...] (one) time each day Start Date: Current [facility] Allergies Allergen: CARVEDILOL Reaction: Other (see comments) [...] 136 (03/19/24) 135 (02/20/24) ANEMIA ASSESSMENT Hgb 9.4 (04/14/24) 9.6 (04/07/24) 9.2 (04/02/24) [...] (03/19/24) Signed by: AMANDEEP LÓPEZ MD on 04/23/2024 at 02:19:36 PM Transcribed by: AMANDEEP LÓPEZ MD on 04/23/2024 at 02:19:36 PM documented in this encounter Plan of Treatment Not on file documented as of this encounter Visit Diagnoses Not on filedocumented in this encounter Care Teams Repairer Cylinder Heads Relationship Specialty Start Date End Date Edwar Trujillo MD [address] [place] PCP - General 04/26/20 documented as of this encounter
--- OUTSIDE RECORDS SUMMARY | 2024-05-13 14:09 | XMS_ITS | Encounter Summary ---
Author Organization [facility] Address [address] [address] Phone Care Team Providers Care Mixer Driver Name Role Phone Edwar Trujillo MD Primary Care Provider [phone] Encounter Details Date Type Department Care Team (Late st Contact Info) Description 04/30/2024 Treatment [facility] [address] [address] Amandeep López MD [address] [address] Social History Tobacco Use Types [...] Dialysis Note - Amandeep López MD - 04/30/2024 12:00 AM EST Patient: George Levy : 1940 Note Type: Dialysis Rounds-Basic Service Date: 04/30/2024 This patient was personally seen for a basic visit as part of routine monthly dialysis care for end stage renal disease. Attending Environmental Studies Faculty Member: AMANDEEP LÓPEZ MD Dialysis Location: [facility] Schedule: Shift: 2 OVERVIEW Patient is stable. HOME MEDICATIONS Medications reviewed. [facility] Out[facility] Medications acetaminophen (TYLENOL 8 HOUR) [...] (one) time each day Start Date: Current [facility] Allergies Allergen: CARVEDILOL Reaction: Other (see comments) [...] (04/23/24) Signed by: AMANDEEP LÓPEZ MD on 04/30/2024 at 09:11:34 PM documented in this encounter Plan of Treatment Not on file documented as of this encounter Visit Diagnoses Not on filedocumented in this encounter Care Teams Mixer Driver Relationship Specialty Start Date End Date Edwar Trujillo MD [address] [place] [address] [address] [place] PCP - General 04/26/20 documented as of this encounter
--- OUTSIDE RECORDS SUMMARY | 2024-05-13 14:09 | XMS_ITS | Encounter Summary ---
Author Organization [facility] Address [address] [facility] [address] [place] [address] Phone Care Team Providers Care Forensic Manager Name Role Phone Edwar Trujillo MD Primary Care Provider [phone] Encounter Details Date Type Department Care Team (Late st Contact Info) Description 06/04/2020 Orders Only [facility] [address] [place] [address] [place] [id number] Neal Burgess MD Stage 5 chronic kidney disease (HCC); Anemia of chronic renal failure Social History Tobacco Use Types Packs/Day Years Used Date Smoking Tobacco: Never Alcohol Use Standard Drinks/Week Comments Yes 0 (1 standard drink = 0.6 oz pure alcohol) Alcoholic Drinks/day: Occasional social drink Sex and Gender Information Value Date Recorded Sex Assigned at Not on file Legal Sex Male 5:09 PM EST Gender Identity Not on file Sexual Orientation Not on file documented as of this encounter Plan of Treatment Not on file documented as of this encounter Visit Diagnoses Diagnosis Stage 5 chronic kidney disease (HCC) Anemia of chronic renal failure documented in this encounter Care Teams Forensic Manager Relationship Specialty Start Date End Date Edwar Trujillo MD [address] [place] [address] [address] [place] PCP - General 04/26/20 documented as of this encounter
--- OUTSIDE RECORDS SUMMARY | 2024-05-13 14:10 | XMS_ITS | Encounter Summary ---
Author Organization [facility] Address [address] [place] [address] Phone Care Team Providers Care Opener Name Role Phone Edwar Trujillo MD Primary Care Provider [phone] Reason for Visit * Reason Comments Med Refill Encounter Details Date Type Department Care Team (Late st Contact Info) Description 09/06/2022 Refill [facility] [address] [place] [address] Anirudh Tinoco MD Social History Tobacco Use Types Packs/Day Years [...] on filedocumented in this encounter Care Teams Opener Relationship Specialty Start Date End Date Edwar Trujillo MD [address] [place] [address] [address] [place] PCP - General 04/26/20 documented as of this encounter
--- OUTSIDE RECORDS SUMMARY | 2024-05-13 14:10 | XMS_ITS ---
Author Organization [facility] Address [address] [place] [address] Care Team Providers Care Plastic Extruding Machine Operator Name Role Phone Edwar Trujillo MD Primary Care Provider Unavailab Deven Brady Unavailable [phone] ALLERGIES Allergen (clinical drug ingredient) Drug/Non Drug [...] 07/31/2023 Encounters Encounter Location Date Provider Diagnosis [facility] [address] [place] [address] 07/31/2023 Deven Mccallum Heme + stool R19.5 [...]
--- OUTSIDE RECORDS SUMMARY | 2024-05-13 14:10 | XMS_ITS ---
Author Organization [facility] Address [address] [place] [address] Care Team Providers Care Deck Molder Name Role Phone Ronnie OVALLE, Edwar Primary Care Provider UnavailDeven Mora Unavailable [phone] ALLERGIES Allergen (clinical drug ingredient) Drug/Non Drug [...] Notes Problem Gallstones (K80.20) Active confirmed Gallstones ([id number]) VITAL SIGNS BMI 24.63 kg/m2 02/26/2024 Blood pressure systolic 00 mm Hg 02/26/20 24 Blood pressure diastolic 00 mm Hg 024 Height 5 ft 5 in in 02/26/2024 Weight 148 lbs 02/26/2024 Encounters Encounter Location Date Provider Diagnosis [facility] [address] [place] [address] 02/26/2024 Deven Mccallum Anemia, unspecified type D64.9 [...]
--- OUTSIDE RECORDS SUMMARY | 2024-05-13 14:10 | XMS_ITS ---
Author Organization [facility] Address [address] [place] [address] Care Team Providers Care Vice Admiral Name Role Phone Ronnie OVALLE, Edwar Primary Care Provider UnavailDeven Mora Unavailable [phone] ALLERGIES Allergen (clinical drug ingredient) Drug/Non Drug [...] 01/30/2023 Encounters Encounter Location Date Provider Diagnosis [facility] [address] [place] [address] 01/30/2023 Deven Mccallum Heme + stool R19.5 [...]
--- OUTSIDE RECORDS SUMMARY | 2024-05-13 14:10 | XMS_ITS | Clinical Summary ---
Author Organization [facility] Address [address] [facility] [address] [place] [address] Phone Care Team Providers Care Pipe Line Maintenance Supervisor Name Role Phone Edwar Trujillo MD Primary Care Provider [phone] Allergies Active Allergy Reactions Criticality Noted Date Comments Carvedilol Other (see comments) 05/28/2020 Cephalexin Other (see comments) 05/28/2020 Lisinopril Other (see comments) 05/28/2020 Medications Multiple Vitamins-Minera ls (MULTIVITAMIN ADULT EXTRA C PO) Take 1 capsule by mouth 1 (one) time each day Active acetaminophen (Tylenol 8 Hour) 650 MG 8 hr tablet as needed for pain Active aspirin (ST JAMES) 81 MG EC tablet Take 1 tablet by mouth 1 (one) time each day Active atorvastatin (LIPITOR) 10 MG tablet Take 1 tablet by mouth 1 (one) time each day Active dilTIAZem SR (CARDIZEM SR) 120 MG 12 hr capsule Take 1 capsule by mouth at bed time Active ferrous sulfate 325 (65 Fe) MG tablet Take 1 tablet by mouth 1 (one) time each day Active hydrALAZINE (APRESOLINE) 50 MG tablet Take 100 mg by mouth 2 (two) times a day 08/09/2015 Active labetalol (NORMODYNE) 200 MG tablet TAKE ONE TABLET BY MOUTH TWICE A DAY 60 tablet 6 02/14/2022 Active furosemide (LASIX) 40 MG tablet TAKE ONE TABLET BY MOUTH EVERY DAY 60 tablet 3 03/11/2024 Active carvedilol (Coreg) 6.25 MG tablet Take 1 tablet (6.25 mg total) by mouth in the morning and 1 tablet (6.25 mg total) in the evening. Take with meals. 60 tablet 11 04/07/2024 Active carvedilol (Coreg) 6.25 MG tablet Take 1 tablet (6.25 mg total) by mouth in the morning and 1 tablet (6.25 mg total) in the evening. 180 tablet 3 04/07/2024 Active Active Problems Problem Noted Date Diagnosed Date Stage 5 chronic kidney disease 05/28/2020 Renal disorder due to type 1 diabetes mellitus 0 05/26/2020 Hypertensive renal disease 05/26/2020 Hypertensive heart disease without congestive he art failure 05/26/2020 Anemia of chronic renal failure 05/26/2020 Resolved Problems Problem Noted Date Diagnosed Date Resolved Date Chronic kidney disease stage 3 05/26/2020 05/28/2020 Encounters Date Type Department Care Team Description 05/07/2024 Treatment [facility] [address] [address] Amandeep Gonzalez MD 04/30/2024 Treatment [facility] [address] [address] Amandeep Gonzalez MD 04/23/2024 Treatment [facility] [address] [address] Amandeep Gonzalez MD 04/18/2024 Treatment [facility] [address] [address] Amandeep Gonzalez MD 04/15/2024 Treatment [facility] [address] [address] Amandeep Gonzalez MD 04/07/2024 Treatment [facility] [address] [address] Otto Howell MD 03/28/2024 Treatment [facility] [address] [address] Amandeep Gonzalez MD 03/19/2024 Treatment [facility] [place] [address] [place] [address] Amandeep Gonzalez MD 03/11/2024 Refill [facility] [address] [facility] [address] [place] [address] Amandeep Gonzalez MD 03/05/2024 Treatment [facility] [address] [place] [address] Amandeep Gonzalez MD 02/27/2024 Treatment [facility] [address] [place] [address] Amandeep Gonzalez MD 02/20/2024 Orders Only [facility] [address] [address] Amandeep Gonzalez MD 02/20/2024 Treatment [facility] [address] [address] Amandeep Gonzalez MD 02/15/2024 Treatment [facility] [address] [address] Amandeep Gonzalez MD 02/11/2024 Treatment [facility] [address] [address] Amandeep Gonzalez MD from Last 3 Months Immunizations Name Administration Dates Next Due Pneumococcal Polysaccharide 08/07/2013, 4 Family History Medical History Relation Comments Diabetes Father Stroke Father Diabetes Mother Hypertension Mother Stroke Mother Relation Status Comments Father Mother Social History Tobacco Use Types Packs/Day Years [...] on file Sexual Orientation Not on file Last Filed Vital Signs Vital Sign Reading Time Taken Comments Blood Pressure 112/68 07/16/2020 2:51 PM EDT Pulse 53 07/02/2020 2:26 PM EDT Temperature - - Respiratory Rate - - Oxygen Saturation 98% 07/02/2020 2:26 PM EDT Inhaled Oxygen Concentration - - Weight 89.8 kg (198 lb) 07/16/2020 2:51 PM EDT Height 167.6 cm (5' 6 ) 07/16/2020 2:51 PM EDT Body Mass Index 31.96 07/16/2020 2:51 PM EDT Plan of Treatment Health Maintenance Due Date Last Done Comments Hepatitis B Vaccine (1 of 5 - Risk Dialysis 4-dose series) 1960 Pneumococcal Vaccine: 65+ Ye ars (3 of 3 - PCV) 01/11/2019 01/11/2018, 08/07/2013, 06/18/2013 Diabetes: Ophthalmology Exam 05/16/2020 Diabetes: Pedal Pulse Checked 05/16/2020 Diabetes: Sensory Foot Exam 05/16/2020 Diabetes: Visual Foot Exam 05/16/2020 Influenza Vaccine (#1) 2023 Diabetes: Hemoglobin A1C 07/22/2024 025, 01/18/2022, 10/19/2021, Additional history exists Procedures Procedure Name Priority Date/Time Associated Diagnosis Comments COLLECTION DATE (HC) Routine 04/23/2024 3:00 AM EST ALUMINUM LEVEL Routine 04/23/2024 3:00 AM EST HEMOGLOBIN A1C Routine 04/23/2024 3:00 AM EST HEPATITIS C ABS W/REFLEX RNA DETECTR Routine 04/23/2024 3:00 AM EST CONFIRMATION TEST HCV Routine 04/23/2024 3:00 AM EST PROTEIN, TOTAL, SERUM Routine 04/23/2024 3:00 AM EST TRANSFERRIN SATURATION Routine 3:00 AM EST URIC ACID Routine 04/23/2024 3:00 AM EST KT/V NATURAL LOG, URR (HC) Routine 04/23/2024 3:00 AM EST ELECTROLYTE PANEL Routine 04/23/2024 3:0 0 AM EST MAGNESIUM Routine 04/23/2024 3:00 AM EST LIPID PANEL Routine 04/23/2024 3:00 AM EST LIH (HC) Routine 04/23/2024 3:00 AM EST GLUCOSE, RANDOM Routine 04/23/2024 3:00 AM EST CREATININE, SERUM Routine 04/23/2024 3:0 0 AM EST LACTATE DEHYDROGENASE Routine 04/23/2024 3:00 AM EST BILIRUBIN, TOTAL Routine 04/23/2024 3:00 AM EST AST Routine 04/23/2024 3:00 AM EST ALT Routine 04/23/2024 3:00 AM EST ALKALINE PHOSPHATASE Routine 04/23/2024 3:00 AM EST CALCIUM PHOSPHORUS PRODUCT, ADJUSTED (HC) Routine 04/23/2024 3:00 AM EST PTH, INTACT Routine 04/23/2024 3:00 AM EST FERRITIN Routine 04/23/2024 3:00 AM EST HEPATITIS B SURFACE ANTIGEN W/REFL CONFIRM Routine 04/23/2024 3:00 AM EST HEPATITIS B SURFACE ANTIBODY QUANT Routine 04/23/2024 3:00 AM EST CBC AND DIFFERENTIAL Routine 04/23/2024 3:00 AM EST HEMOGLOBIN Routine 04/14/2024 3:00 AM EST HEMOGLOBIN Routine 04/07/2024 3:00 AM EST HEMOGLOBIN Routine 04/02/2024 3:00 AM EST ALUMINUM LEVEL Routine 03/26/2024 3:00 AM EST TRANSFERRIN SATURATION Routine 3:00 AM EST KT/V NATURAL LOG, URR (HC) Routine 03/19/2024 3:00 AM EST PROTEIN, TOTAL, SERUM Routine 03/19/2024 3:00 AM EST ELECTROLYTE PANEL Routine 03/19/2024 3:0 0 AM EST MAGNESIUM Routine 03/19/2024 3:00 AM EST LACTATE DEHYDROGENASE Routine 03/19/2024 3:00 AM EST LIH (HC) Routine 03/19/2024 3:00 AM EST GLUCOSE, RANDOM Routine 03/19/2024 3:00 AM EST CREATININE, SERUM Routine 03/19/2024 3:0 0 AM EST BILIRUBIN, TOTAL Routine 03/19/2024 3:00 AM EST AST Routine 03/19/2024 3:00 AM EST ALT Routine 03/19/2024 3:00 AM EST CALCIUM PHOSPHORUS PRODUCT, ADJUSTED (HC) Routine 03/19/2024 3:00 AM EST ALKALINE PHOSPHATASE Routine 03/19/2024 3:00 AM EST FERRITIN Routine 03/19/2024 3:00 AM EST HEPATITIS B SURFACE ANTIBODY QUANT Routine 03/19/2024 3:00 AM EST CBC AND DIFFERENTIAL Routine 03/19/2024 3:00 AM EST COLLECTION DATE (HC) Routine 02/20/2024 3:00 AM EST HEPATITIS B SURFACE ANTIGEN W/REFL CONFIRM Routine 02/20/2024 3:00 AM EST TRANSFERRIN SATURATION Routine 3:00 AM EST PROTEIN, TOTAL, SERUM Routine 02/20/2024 3:00 AM EST MAGNESIUM Routine 02/20/2024 3:00 AM EST ELECTROLYTE PANEL Routine 02/20/2024 3:0 0 AM EST LIH (HC) Routine 02/20/2024 3:00 AM EST KT/V NATURAL LOG, URR (HC) Routine 02/20/2024 3:00 AM EST LACTATE DEHYDROGENASE Routine 02/20/2024 3:00 AM EST GLUCOSE, RANDOM Routine 02/20/2024 3:00 AM EST CREATININE, SERUM Routine 02/20/2024 3:0 0 AM EST AST Routine 02/20/2024 3:00 AM EST BILIRUBIN, TOTAL Routine 02/20/2024 3:00 AM EST ALT Routine 02/20/2024 3:00 AM EST ALKALINE PHOSPHATASE Routine 02/20/2024 3:00 AM EST CALCIUM PHOSPHORUS PRODUCT, ADJUSTED (HC) Routine 02/20/2024 3:00 AM EST FERRITIN Routine 02/20/2024 3:00 AM EST CBC AND DIFFERENTIAL Routine 02/20/2024 3:00 AM EST from Last 3 Months Results * Confirmation Test HCV (04/23/2024 3:00 AM EST) Hep C Ab Confirmation Not needed [facility] 04/23/2024 3:00 AM EST 04/24/2024 4:32 PM EST us Amandeep Gonzalez MD LAB BLOOD ORDERABLES Final Resu lt Performing Organization Address [facility] Co de Phone Number [facility] [address] [place] [address] * Collection Date (04/23/2024 3:00 AM EST) Only the most recent of2 resultswithin the time period is included. Collection Date See Comment [facility] Comment: Patient sample received may exceed specimen stability, based on the collection date electronically provided. ??When reviewing patient results, verify collection information and consider specimen stability before acting on any critical or panic results. 04/23/2024 3:00 AM EST us Amandeep Gonzalez MD LAB [id number] LICITED RESULTS Final Result Performing Organization Address City/[facility] Co de Phone Number [facility] [address] [place] [address] * LIH (04/23/2024 3:00 AM EST) Only the most recent of3 resultswithin the time period is included. Lipemia Normal Normal [facility] Icterus Normal Normal [facility] Hemolysis Normal Normal [facility] 04/23/2024 3:00 AM EST 04/24/2024 3:54 PM EST us Amandeep Gonzalez MD LAB [id number] LICITED RESULTS Final Result Performing Organization Address City/[facility]/ZIP Co de Phone Number [facility] [address] [place] [address] * (ABNORMAL) Kt/V Natural Log, URR (04/23/2024 3:00 AM EST) Only the most recent of3 resultswithin the time period is included. BUN 111(H) 7 - 25 mg/dL [facility] Treatment Time 197 min [facility] Pre-Weight, lb 72.2 kg [facility] Post-Weight, lb 70.8 kg [facility] Ultrafiltration Rate 6 <=13 mL/kg/hr [facility] Comment: Recommend achieving Ultrafiltration Rate (UFR) <=10 mL/kg/hr References: Kimberley JALLOH et al. Kidney Int. 2010; 79(2):250-257 BUN Post Dialysis 34(H) 7 - 25 mg/dL [facility] UREA REDUCTION RATIO (%) 69 >=65 % [facility] Kt/V Natural Log 1.33 >=1.2 [facility] 04/23/2024 3:00 AM EST 04/24/2024 3:54 PM EST Amandeep Gonzalez MD LAB [id number] LICITED RESULTS Final Result Performing Organization Address [facility] Co de Phone Number [facility] [address] [place] [address] * (ABNORMAL) Calcium Phosphorus Product, Adjusted (04/23/2024 3:00 AM EST) Only the most recent of3 resultswithin the time period is included. Albumin 3.8 3.6 - 5.4 g/dL [facility] Calcium 8.9 8.6 - 10.3 mg/dL [facility] Phosphorus, Serum 6.5(H) 2.5 - 5.0 mg/dL [facility] Ca*PO4 57.8(A) <55.0 mg2/dL2 [facility] Calcium, Adjusted Total 9.1 8.6 - 10.3 mg/dL [facility] CA*PO4 CORRCTD 59.2(A) <55.0 mg2/dL2 [facility] 04/23/2024 3:00 AM EST 04/24/2024 3:54 PM EST us Amandeep Gonzalez MD LAB [id number] LICITED RESULTS Final Result Performing Organization Address [facility] de Phone Number [facility] [address] [place] [address] * HEPATITIS C ABS W/REFLEX RNA DETECTR (04/23/2024 3:00 AM EST) Hep C Virus Ab Non-Reacti ve Non-Reacti ve [facility] 04/23/2024 3:00 AM EST 04/24/2024 3:54 PM EST us Amandeep Gonzalez MD LAB [id number] LICITED RESULTS Final Result Performing Organization Address [facility] de Phone Number [facility] [address] [place] [address] * Hepatitis B Surface Ag w/Reflex Confirmation (04/23/2024 3:00 AM EST) Only the most recent of2 resultswithin the time period is included. Hep B Surface Antigen Negative Negative [facility] 04/23/2024 3:00 AM EST 04/24/2024 3:54 PM EST us Amandeep Gonzalez MD LAB BLOOD ORDERABLES Final Resu lt Performing Organization Address [facility] de Phone Number [facility] [address] [place] [address] * (ABNORMAL) TSAT (04/23/2024 3:00 AM EST) Only the most recent of3 resultswithin the time period is included. Iron 92 65 - 175 ug/dL [facility] Transferrin 161(L) 215 - 365 mg/dL [facility] TIBC 225 211 - 406 ug/dL [facility] Iron Saturation (TSat) 41 22 - 52 % [facility] 04/23/2024 3:00 AM EST 04/24/2024 3:54 PM EST us Amandeep Gonzalez MD LAB BLOOD ORDERABLES Final Resu lt Performing Organization Address [facility] Co de Phone Number [facility] [address] [place] [address] * Aluminum level (04/23/2024 3:00 AM EST) Only the most recent of2 resultswithin the time period is included. Pathologist [facility] Aluminum 4 1 - 20 ug/L [facility] 04/23/2024 3:00 AM EST 04/24/2024 4:13 PM EST us Amandeep Gonzalez MD LAB BLOOD ORDERABLES Final Resu lt Performing Organization Address [facility] de Phone Number [facility] [address] [place] [address] * Hepatitis B Surface Antibody (04/23/2024 3:00 AM EST) Only the most recent of2 resultswithin the time period is included. [facility] Hep B Surface Antibody 756 mIU/mL [facility] Comment: Interpretation: <10: No Immunity >=10: Probable Immunity 04/23/2024 3:00 AM EST 04/24/2024 3:54 PM EST us Amandeep Gonzalez MD LAB BLOOD ORDERABLES Final Resu lt Performing Organization Address [facility] de Phone Number [facility] [address] [place] [address] * (ABNORMAL) CBC and Differential (04/23/2024 3:00 AM EST) Only the most recent of3 resultswithin the time period is included. Pathologist [facility] DIFFERENTIAL MANUAL, 2 Not Indicated [facility] White Blood Cells 5.3 4.2 - 9.1 K/uL [facility] RBC 3.10(L) 4.63 - 6.08 M/uL [facility] Hgb 10.1(L) 13.7 - 17.5 g/dL [facility] Hemoglobin x 3 30.3(L) 41.1 - 52.5 g/dL [facility] Hematocrit 31.1(L) 40.1 - 51.0 % [facility] MCV 100.3(H) 79.0 - 92.2 fL [facility] MCH 32.6(H) 25.7 - 32.2 pg [facility] MCHC 32.5 32.3 - 36.5 g/dL [facility] Platelets 67(L) 163 - 337 K/uL [facility] RDW 15.7(H) 11.6 - 14.4 % [facility] Neutrophils Relative 75.0(H) 34.0 - 67.9 % [facility] Lymphocytes Relative 9.2(L) 21.8 - 53.1 % [facility] Monocytes 11.3 5.3 - 12.2 % [facility] Eosinophils Relative 3.0 0.8 - 7.0 % [facility] Basophils Relative 0.9 0.2 - 1.2 % [facility] Immature Granulocytes 0.6 0.0 - 1.0 % [facility] 04/23/2024 3:00 AM EST 04/24/2024 4:32 PM EST Amandeep Gonzalez MD LAB BLOOD ORDERABLES Final Resu lt Performing Organization Address City/[facility]/ZIP Co de Phone Number [facility] [address] [place] [address] * Uric Acid (04/23/2024 3:00 AM EST) Uric Acid 6.9 4.4 - 7.6 mg/dL [facility] 04/23/2024 3:00 AM EST 04/24/2024 3:54 PM EST Amandeep Gonzalez MD LAB BLOOD ORDERABLES Final Resu lt Performing Organization Address City/[facility] Co de Phone Number [facility] [address] [place] [address] * ALT (04/23/2024 3:00 AM EST) Only the most recent of3 resultswithin the time period is included. ALT (SGPT) 30 10 - 49 U/L [facility] 04/23/2024 3:00 AM EST 04/24/2024 3:54 PM EST us Amandeep Gonzalez MD LAB BLOOD ORDERABLES Final Resu lt Performing Organization Address [facility] Co de Phone Number [facility] [address] [place] [address] * AST (04/23/2024 3:00 AM EST) Only the most recent of3 resultswithin the time period is included. AST (SGOT) 17 <34 U/L [facility] 04/23/2024 3:00 AM EST 04/24/2024 3:54 PM EST us Amandeep Gonzalez MD LAB BLOOD ORDERABLES Final Resu lt Performing Organization Address [facility] de Phone Number [facility] [address] [place] [address] * Protein, total (04/23/2024 3:00 AM EST) Only the most recent of3 resultswithin the time period is included. Total Protein 6.6 6.4 - 8.9 g/dL [facility] 04/23/2024 3:00 AM EST 04/24/2024 3:54 PM EST us Amandeep Gonzalez MD LAB BLOOD ORDERABLES Final Resu lt Performing Organization Address [facility] de Phone Number [facility] [address] [place] [address] * (ABNORMAL) Alkaline phosphatase (04/23/2024 3:00 AM EST) Only the most recent of3 resultswithin the time period is included. Alkaline Phosphatase 120(H) 46 - 116 U/L [facility] 04/23/2024 3:00 AM EST 04/24/2024 3:54 PM EST us Amandeep Gonzalez MD LAB BLOOD ORDERABLES Final Resu lt Performing Organization Address [facility] Co de Phone Number [facility] [address] [place] [address] * PTH, Intact (04/23/2024 3:00 AM EST) PTH, Intact 339 160 - 721 pg/mL [facility] Comment: Suggested (KDIGO) ESRD maintenance range is two to nine times the upper normal limit (80.1 pg/mL) for the laboratory. 04/23/2024 3:00 AM EST 04/24/2024 3:54 PM EST us Amandeep Gonzalez MD LAB BLOOD ORDERABLES Final Resu lt Performing Organization Address City/[facility]/ZIP Co de Phone Number [facility] [address] [place] [address] * (ABNORMAL) Magnesium (04/23/2024 3:00 AM EST) Only the most recent of3 resultswithin the time period is included. Magnesium 2.8(H) 1.9 - 2.7 mg/dL [facility] 04/23/2024 3:00 AM EST 04/24/2024 3:54 PM EST us Amandeep Gonzalez MD LAB BLOOD ORDERABLES Final Resu lt Performing Organization Address [facility] Co de Phone Number [facility] [address] [place] [address] * Lactate dehydrogenase (04/23/2024 3:00 AM EST) Only the most recent of3 resultswithin the time period is included. LDH 208 120 - 246 U/L [facility] 04/23/2024 3:00 AM EST 04/24/2024 3:54 PM EST us Amandeep Gonzalez MD LAB BLOOD ORDERABLES Final Resu lt Performing Organization Address [facility] Co de Phone Number [facility] [address] [place] [address] * Hemoglobin A1c (04/23/2024 3:00 AM EST) Hemoglobin A1C 5.0 <5.7 % [facility] Comment: Methodology: Enzymatic HbA1c (NGSP %) ?Suggested Diagnosis >6.4% ? Diabetic 5.7-6.4% ?Pre-Diabetic <5.7% ? Non-Diabetic Diabetic Glucose Control Evaluation: Therapeutic action suggested at >8.0% ADA recommends a glycemic goal of <7.0% 04/23/2024 3:00 AM EST 04/24/2024 4:32 PM EST us Amandeep Gonzalez MD LAB BLOOD ORDERABLES Final Resu lt Performing Organization Address [facility] de Phone Number [facility] [address] [place] [address] * Glucose, random (04/23/2024 3:00 AM EST) Only the most recent of3 resultswithin the time period is included. Glucose 101 74 - 109 mg/dL [facility] 04/23/2024 3:00 AM EST 04/24/2024 3:54 PM EST us Amandeep Gonzalez MD LAB BLOOD ORDERABLES Final Resu lt Performing Organization Address [facility] de Phone Number [facility] [address] [place] [address] * (ABNORMAL) Ferritin (04/23/2024 3:00 AM EST) Only the most recent of3 resultswithin the time period is included. Ferritin 1,599(H) 22 - 322 ng/mL [facility] 04/23/2024 3:00 AM EST 04/24/2024 3:54 PM EST us Amandeep Gonzalez MD LAB BLOOD ORDERABLES Final Resu lt Performing Organization Address [facility] de Phone Number [facility] [address] [place] [address] * (ABNORMAL) Creatinine, serum (04/23/2024 3:00 AM EST) Only the most recent of3 resultswithin the time period is included. Creatinine 7.33(H) 0.70 - 1.30 mg/dL [facility] 04/23/2024 3:00 AM EST 04/24/2024 3:54 PM EST Amandeep Gonzalez MD LAB BLOOD ORDERABLES Final Resu lt Performing Organization Address [facility] de Phone Number [facility] [address] [place] [address] * Bilirubin, total (04/23/2024 3:00 AM EST) Only the most recent of3 resultswithin the time period is included. Total Bilirubin 0.3 0.3 - 1.2 mg/dL [facility] 04/23/2024 3:00 AM EST 04/24/2024 3:54 PM EST Amandeep Gonzalez MD LAB BLOOD ORDERABLES Final Resu lt Performing Organization Address [facility] de Phone Number [facility] [address] [place] [address] * (ABNORMAL) Lipid panel (04/23/2024 3:00 AM EST) Cholesterol 104 <200 mg/dL [facility] Comment: Optimal: ?<200 Borderline: ? 200-239 Higher Risk: ?>239 Triglycerides 81 <150 mg/dL [facility] Comment: Optimal: ?<150 Borderline High: ??150-199 High: ? 200-499 Very High: ?>499 HDL 46(A) >59 mg/dL [facility] Comment: Desirable: ?>59 Higher Risk: ?<40 LDL-Calc 42 <100 mg/dL [facility] Comment: Optimal: ?<100 Above Optimal: ?100-129 Borderline High: ??130-159 High: ? 160-189 Very High: ?>189 VLDL Cholesterol Bharat 16 <30 mg/dL [facility] Comment: Optimal: ?<30 Borderline High: ??30-39 High: ? 40-99 Very High: ?>99 Chol/HDL Ratio 2.3 <3.3 [facility] Comment: Optimal: ?<3.3 Higher Risk: ?>6.2 04/23/2024 3:00 AM EST 04/24/2024 3:54 PM EST Amandeep Gonzalez MD LAB BLOOD ORDERABLES Final Resu Performing Organization Address [facility] de Phone Number [facility] [address] [place] [address] * Electrolyte panel (04/23/2024 3:00 AM EST) Only the most recent of3 resultswithin the time period is included. Sodium 138 136 - 145 mEq/L [facility] Potassium 5.0 3.4 - 5.0 mEq/L [facility] Chloride 102 98 - 107 mEq/L [facility] Bicarbonate (CO2) 25 21 - 31 mEq/L [facility] Anion Gap 11 3 - 14 mEq/L [facility] 04/23/2024 3:00 AM EST 04/24/2024 3:54 PM EST Amandeep Gonzalez MD LAB BLOOD ORDERABLES Final Resu Performing Organization Address [facility] de Phone Number [facility] [address] [place] [address] * (ABNORMAL) Hemoglobin (04/14/2024 3:00 AM EST) Only the most recent of3 resultswithin the time period is included. Hgb 9.4(L) 13.7 - 17.5 g/dL [facility] Hemoglobin x 3 28.2(L) 41.1 - 52.5 g/dL [facility] 04/14/2024 3:00 AM EST 04/15/2024 1:53 PM EST us Amandeep Gonzalez MD LAB BLOOD ORDERABLES Final Resu lt Performing Organization Address City/State/[facility] Co de Phone Number [facility] [address] [place] [address] from Last 3 Months Insurance MEDICARE MEDICARE Care Teams Pipe Line Maintenance Supervisor Relationship Specialty Start Date End Date Edwar Trujillo MD [address] [place] [address] [address] HEERICA MARIE PCP - General 04/26/20
== END 2024-05-13 13:51 | disposition home or self-care (01) ==
PROVIDERS: PCP Family Medicine; Visit Provider Internal Medicine
DX: I42.9 Cardiomyopathy, unspecified (principal); I25.10 Atherosclerotic heart disease of native coronary artery without angina pectoris; I35.9 Nonrheumatic aortic valve disorder, unspecified; I12.0 Hypertensive chronic kidney disease with stage 5 chronic kidney disease or end stage renal disease; I27.20 Pulmonary hypertension, unspecified; E78.5 Hyperlipidemia, unspecified; N18.6 End stage renal disease; Z99.2 Dependence on renal dialysis
CPT/HCPCS: 93280; 99214

== ENCOUNTER → 2024-05-13 13:10 | Outpatient (BNVA) | payer MEDICARE, SELFPAY | PROVIDERS: PCP Family Medicine; Visit Provider Internal Medicine | DX: Z45.018 Encounter for adjustment and management of other part of cardiac pacemaker (principal); I25.10 Atherosclerotic heart disease of native coronary artery without angina pectoris; I42.9 Cardiomyopathy, unspecified; I35.9 Nonrheumatic aortic valve disorder, unspecified; I27.20 Pulmonary hypertension, unspecified; I12.9 Hypertensive chronic kidney disease with stage 1 through stage 4 chronic kidney disease, or unspecified chronic kidney disease; N18.6 End stage renal disease; Z99.2 Dependence on renal dialysis | CPT/HCPCS: 93280; 99212 ==

== ENCOUNTER → 2024-05-14 23:59 | Outpatient (BNV) | payer MEDICARE, SELFPAY ==
--- NOTE | 2024-05-18 11:37 | A.OFFVIS_ITS ---
Intake Visit Reasons: Remote Device Check- [facility] Allergies cephalexin [From KEFLEX] Allergy (Severe, Verified 04/01/24 13:16) ANGIO EDEMA lisinopril [LISINOPRIL] Allergy (Severe, Verified 04/01/24 13:16) FACIAL EDEMA simvastatin Allergy (Severe, Verified 04/01/24 13:16) renal insufficiency amlodipine Allergy (Mild, Verified 04/01/24 13:16) renal insuff in combo w/ statin rx PFSH Medical History Avascular necrosis of bone of right hip Presence of arterial-venous shunt (for dialysis) History of transfusion of packed red blood cells ESRD (end stage renal disease) on dialysis Normally functioning cardiac pacemaker present Essential hypertension Valvular heart disease Chronic heart failure with preserved ejection fraction (HFpEF) Pulmonary hypertension Arthritis Anemia NAVA (dyspnea on exertion) Rhabdomyolysis due to statin therapy Chronic kidney disease Diabetes Atherosclerotic cardiovascular disease Aortic valvular disease Pacemaker CHF (congestive heart failure) HTN (hypertension) Surgical History 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, 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) History of cardiac catheterization (~08/2020) History of tonsillectomy Status cardiac pacemaker S/P excision of lipoma Hx of colonoscopy Family History Father Stroke Mother Stroke Diabetes Social History Household Members: Spouse Housing: Apartment Are you a primary medical care administrator to a significant other at home: No Do you presently have visiting nurse or other home services: Yes (elder services, meals on wheels) Alcohol intake: current Alcohol intake frequency: former alcohol drinker Alcohol type: hard liquor Patient Tobacco Use Status: Never used Tobacco Advance Directives Date on File: 04/26/20 service: Yes Current occupational status: retired Current occupation: rt handed Office Procedures Cardiac Device Check Cardiac Device Check Details: Date of service- 05/14/2024 ; Battery life 8.5; normal lead parameters; AP 4%; ENTRY LEVEL ACCOUNT MANAGER >99%; no significant arrhythmias. Overall normal device function. [id number] Cardiac Device Interrogation, pacemaker Procedure code (CPT) selection complete Assessment & Plan Assessment & Plan (1) Normally functioning cardiac pacemaker present: Code(s): Z95.0 - Presence of cardiac pacemaker Category: Medical (2) Heart block: Code(s): I45.9 - Conduction disorder, unspecified Category: Medical Plan x Coding Level of Care Code Procedure Only Diagnoses Normally functioning cardiac pacemaker present Z95.0 Heart block I45.9 CPT Codes Cardiac Device Check - Cardiac Device 12: [id number] Cardiac Device Interrogation, pacemaker ([id number])
== END ==
PROVIDERS: PCP Family Medicine; Visit Provider Internal Medicine
DX: I45.9 Conduction disorder, unspecified (principal); Z95.0 Presence of cardiac pacemaker
CPT/HCPCS: 93294

== ENCOUNTER 2024-07-01 12:49 | Outpatient (AMB) | payer MEDICARE, SELFPAY ==
--- NOTE | 2024-07-01 12:53 | A.OFFVIS_ITS ---
Vital Signs 07/01/24 12:54 Height 5 ft 5 in Weight 156 lb BMI 26.0 Intake Visit Reasons: 3 month Left arm check Intake Note: 3 mo follow up Left UE check s/p Left UE fistulagram 03/18/24. Pt states no complaints, has no issues w/ bleeding still Dipping Machine Operator Required: No Accompanied by: Self / Same As Patient Allergies cephalexin [From KEFLEX] Allergy (Severe, Verified 04/01/24 13:16) ANGIO EDEMA lisinopril [LISINOPRIL] Allergy (Severe, Verified 04/01/24 13:16) FACIAL EDEMA simvastatin Allergy (Severe, Verified 04/01/24 13:16) renal insufficiency amlodipine Allergy (Mild, Verified 04/01/24 13:16) renal insuff in combo w/ statin rx HPI HPI 3 month Left arm check: Details: George is presenting today for a 3m check on left fistula. The fistulogram was performed on 03/18/24. He states he continues with HD on M//F. He states the fistula has been working well and there has been no isssues obtaining dialysis and no bleeding/wounds/swelling. He has no new concerns today. [facility] Medical History Avascular necrosis of bone of right hip Presence of arterial-venous shunt (for dialysis) History of transfusion of packed red blood cells ESRD (end stage renal disease) on dialysis Normally functioning cardiac pacemaker present Essential hypertension Valvular heart disease Chronic heart failure with preserved ejection fraction (HFpEF) Pulmonary hypertension Arthritis Anemia NAAV (dyspnea on exertion) Rhabdomyolysis due to statin therapy Chronic kidney disease Diabetes Atherosclerotic cardiovascular disease Aortic valvular disease Pacemaker CHF (congestive heart failure) HTN (hypertension) Surgical History 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, 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) History of cardiac catheterization (~08/2020) History of tonsillectomy Status cardiac pacemaker S/P excision of lipoma Hx of colonoscopy Family History Father Stroke Mother Stroke Diabetes Social History Household Members: Spouse Housing: Apartment Are you a primary career technical education instructor to a significant other at home: No Do you presently have visiting nurse or other home services: Yes (elder services, meals on wheels) Alcohol intake: current Alcohol intake frequency: former alcohol drinker Alcohol type: hard liquor Patient Tobacco Use Status: Never used Tobacco Advance Directives Date on File: 04/26/20 service: Yes Current occupational status: retired Current occupation: rt handed Review of Systems Const Reports as per HPI and Denies weakness ENT Reports Normal hearing present and Denies dizziness Card Reports as per HPI, Denies chest pain, Denies chest pain at rest, Denies chest pain with activity, Denies dyspnea and Denies dyspnea on exertion Resp Reports as per HPI, Denies cough, Denies dyspnea and Denies dyspnea on exertion GI Reports as per HPI, Denies abdominal pain, Denies nausea and Denies vomiting Musc Denies numbness Skin/Breast Reports as per HPI, Denies erythema and Denies wounds Neuro Reports Normal hearing present, Denies dizziness, Denies numbness, Denies Sensory deficit (Neuro) and Denies weakness Psych Reports no additional complaints Endo Reports no additional complaints Physical Exam Vital Signs: BMI result Body Mass Index 26.0 Neuro Cranial nerves: Yes Normal hearing present Sensory Exam: No Sensory deficit (Neuro) Extrem Other: Left upper arm: fistula with strong, palpable thrill and bruit noted. Assessment & Plan Assessment & Plan (1) ESRD (end stage renal disease): Comment: 05/24/2020 - left upper extremity brachiocephalic fistula creation 03/18/2024 - left arm fistulogram Code(s): N18.6 - End stage renal disease Category: Medical Plan: George is presenting today as a 3m follow up to fistulogram, performed on 03/18/24. He states everything has been going well with the fistula and it is being used without difficulty every M/W/F. We discussed that since it is working so well, we will not need to see him again for a follow up. I did discuss with him that if there were any difficulties with the fistula or it stopped working, to reach out to us immediately. Thank you for allowing us to participate in the patient's care. If there are any questions or concerns, please do not hesitate to reach out to us. Please note a longitudinal relationship has been created with the patient and we have been following and surveillance this chronic condition. Coding Level of Care Code Est Pt Level 3 (54690) Diagnoses ESRD (end stage renal disease) N18.6
[2024-07-01 12:54] VITALS: BMI 26.0
--- OUTSIDE RECORDS SUMMARY | 2024-07-01 15:00 | XMS_ITS | Patient Health Record ---
Author Organization [facility] Address [address] [place] [id number] Care Team Providers Care Soft Boarder Name Role Phone Ronnie OVALLE, Edwar Primary Care Provider Deven Richter [phone] Allergies Allergen (clinical drug ingredient) Drug/Non Drug Allergy documented on EMR Reaction Allergy Type Onset Date Status lisinopril Lisinopril Unknown Drug Allergy Activ e cephalexin Cephalexin Unknown Drug Allergy Activ e Reason For Referral No Information Medications Medication SIG (Take, Route, Frequency, Duration) Notes [...] tablet Oral ly Once a day Active Immunizations Vaccine Route Administration Date Status Comme nts Influenza Unknown 12/15/2017 Administered Influenza Unknown 12/16/2018 Administered Influenza Unknown 12/16/2019 Administered Influenza Unknown 12/15/2020 Administered Influenza Unknown 01/14/2022 Administered Social History Alcohol Screen Question Answer Notes Did you have a drink containing alcohol in the p ast year? No Points 0 Interpretation Negative Section Notes: Nonsmoker; no sig alcohol Nonsmoker; no sig alcohol Nonsmoker; no sig alcohol Nonsmoker; no sig alcohol Nonsmoker; no sig alcohol Nonsmoker; no sig alcohol Nonsmoker; no sig alcohol Nonsmoker; no sig alcohol Nonsmoker; no sig alcohol Nonsmoker; no sig alcohol Nonsmoker; no sig alcohol Nonsmoker; no sig alcohol Problems Problem Type SNOMED Code ICD Code Onset Dates Problem Status W/U Status Risk Notes Problem Screening colonoscopy (644872192) Encounter for screening colonoscopy (Z12.11) Active confirmed Problem 325258138 Encounter for screening for malignant neoplasm of colon (Z12.11) Active confirmed Problem 175255819 History of adenomatous polyp of colon (Z86.010) Active confirmed Problem Polyp of colon (disorder) (49163590) Colon polyps (K63.5) Active confirmed Problem Tubular adenoma of colon (876586261) Tubular adenoma of colon (D12.6) Active confirmed Problem 55712506 Heme + stool (R19.5) Active confirmed Problem History of polyp of colon (situation) (803379575) Hx of colonic polyps (Z86.010) Active confirmed Problem Anemia (573768041) Anemia (D64.9) Active confirmed Problem Gallstones (584123513) Gallstones (K80.20) Active confirmed Problem 860679490 Long-term use of aspirin therapy (Z79.82) Active confirmed Problem 171871266 Anemia, unspecified type (D64.9) Active confirmed Problem 592005999 Adenoma of transverse colon (D12.3) Active confirmed Problem 50233452 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 Vital Signs Blood pressure diastolic 00 mm Hg 02/26/2024 Height 5 ft 5 in in 02/26/2024 Blood pressure systolic 00 mm Hg 02/26/2024 Weight 148 lbs 02/26/2024 BMI 24.63 kg/m2 02/26/2024 Encounters Encounter Location Date Provider Diagnosis [facility] [address] [place] [phone] 07/31/2023 Deven Mccallum Heme + stool R19.5 ; Anemia, unspecified type D64.9 and History of adenomatous polyp of colon Z86.010 [facility] [address] [place] [phone] 02/26/2024 Deven Mccallum Anemia, unspecified type D64.9 ; Adenoma of appendix D12.1 ; History of adenomatous polyp of colon Z86.010 and Gallstones K80.20 Assessments Encounter Date Diagnosis (ICD Code) Assessment Notes Treatment Notes Treatment Clinical Notes Section Notes 07/31/2023 Heme + stool (ICD-10 - R19.5) Overall, Sage appears quite well and is not having any new nor worrisome GI complaints. His previous anemia has been remaining stable as well. We had another detailed conversation today regarding the known appendiceal adenoma with its potential for enlarging and causing actual appendicitis, further bleeding, or even transformation to a neoplasm. However, I think the overall risk of those possibilities is low. Therefore, as we have discussed in the past, attempts at further endoscopic removal or surgical removal could have a higher risk than benefit. Therefore, I would continue to recommend holding off on any further intervention and simply in regard to his blood count and symptoms. Sage understood all of this quite well and is quite comfortable with simply observing things given that he is currently feeling well on his hemodialysis regimen. If things remain well I will plan to see him in the Fall for a followup visit. I did advise him to certainly call me prior to that if any problems or questions I can be of assistance with. Sage was very comfortable with this plan. Thank you again for allowing me to participate in Sage's care. I shall continue to keep you advised of his progress. 07/31/2023 Anemia, unspecified type (ICD-10 - D64.9) Overall, Sage appears quite well and is not having any new nor worrisome GI complaints. His previous anemia has been remaining stable as well. We had another detailed conversation today regarding the known appendiceal adenoma with its potential for enlarging and causing actual appendicitis, further bleeding, or even transformation to a neoplasm. However, I think the overall risk of those possibilities is low. Therefore, as we have discussed in the past, attempts at further endoscopic removal or surgical removal could have a higher risk than benefit. Therefore, I would continue to recommend holding off on any further intervention and simply in regard to his blood count and symptoms. Sage understood all of this quite well and is quite comfortable with simply observing things given that he is currently feeling well on his hemodialysis regimen. If things remain well I will plan to see him in the Fall for a followup visit. I did advise him to certainly call me prior to that if any problems or questions I can be of assistance with. Sage was very comfortable with this plan. Thank you again for allowing me to participate in Sage's care. I shall continue to keep you advised of his progress. 02/26/2024 Anemia, unspecified type (ICD-10 - D64.9) Overall, Sage appears quite well from a GI standpoint. He is not having any new or worrisome GI complaints. His hemoglobin has remained stable again after a recent drop during his orthopedic issues. We did review the appendiceal adenoma again as we have multiple times in the past. He has remained asymptomatic in this regard and therefore given his age and comorbidities we shall continue to hold off on any further colonoscopies and simply observe things. We did review that he should certainly call me if he develops any right lower abdominal pains and/or signs of bleeding. We also reviewed the finding of asymptomatic gallstones. We did review potential symptoms from gallstones including right upper quadrant pain and Jaundice. I did advise him that if that occurs he will need to seek surgical consultation either through your office or through the ER. At this point, if things remain stable From a GI standpoint, I advised Sage to see me again on a p.r.n. basis. I did advise him certainly call if he has any problems or questions I can be of assistance with in the future. Sage was very comfortable with this plan. Thank you again for allowing me to have participated in Sage's care. Please do not hesitate to contact me if I can be of any further assistance in the future. 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 He is not having any new or worrisome GI complaints. His hemoglobin has remained stable again after a recent drop during his orthopedic issues. We did review the appendiceal adenoma again as we have multiple times in the past. He has remained asymptomatic in this regard and therefore given his age and comorbidities we shall continue to hold off on any further colonoscopies and simply observe things. We did review that he should certainly call me if he develops any right lower abdominal pains and/or signs of bleeding. We also reviewed the finding of asymptomatic gallstones. We did review potential symptoms from gallstones including right upper quadrant pain and Jaundice. I did advise him that if that occurs he will need to seek surgical consultation either through your office or through the ER. At this point, if things remain stable From a GI standpoint, I advised Sage to see me again on a p.r.n. basis. I did advise him certainly call if he has any problems or questions I can be of assistance with in the future. Sage was very comfortable with this plan. Thank you again for allowing me to have participated in Sage's care. Please do not hesitate to contact me if I can be of any further assistance in the future. 07/31/2023 History of adenomatous polyp of colon (ICD-10 - Z86.010) Overall, Sage appears quite well and is not having any new nor worrisome GI complaints. His previous anemia has been remaining stable as well. We had another detailed conversation today regarding the known appendiceal adenoma with its potential for enlarging and causing actual appendicitis, further bleeding, or even transformation to a neoplasm. However, I think the overall risk of those possibilities is low. Therefore, as we have discussed in the past, attempts at further endoscopic removal or surgical removal could have a higher risk than benefit. Therefore, I would continue to recommend holding off on any further intervention and simply in regard to his blood count and symptoms. Sage understood all of this quite well and is quite comfortable with simply observing things given that he is currently feeling well on his hemodialysis regimen. If things remain well I will plan to see him in the Fall for a followup visit. I did advise him to certainly call me prior to that if any problems or questions I can be of assistance with. Sage was very comfortable with this plan. Thank you again for allowing me to participate in Sage's care. I shall continue to keep you advised of his progress. 02/26/2024 History of adenomatous polyp of colon (ICD-10 - Z86.010) Overall, Sage appears quite well from a GI standpoint. He is not having any new or worrisome GI complaints. His hemoglobin has remained stable again after a recent drop during his orthopedic issues. We did review the appendiceal adenoma again as we have multiple times in the past. He has remained asymptomatic in this regard and therefore given his age and comorbidities we shall continue to hold off on any further colonoscopies and simply observe things. We did review that he should certainly call me if he develops any right lower abdominal pains and/or signs of bleeding. We also reviewed the finding of asymptomatic gallstones. We did review potential symptoms from gallstones including right upper quadrant pain and Jaundice. I did advise him that if that occurs he will need to seek surgical consultation either through your office or through the ER. At this point, if things remain stable From a GI standpoint, I advised Sage to see me again on a p.r.n. basis. I did advise him certainly call if he has any problems or questions I can be of assistance with in the future. Sage was very comfortable with this plan. Thank you again for allowing me to have participated in Sage's care. Please do not hesitate to contact me if I can be of any further assistance in the future. 02/26/2024 Gallstones (ICD-10 - K80.20) Overall, Sage appears quite well from a GI standpoint. He is not having any new or worrisome GI complaints. His hemoglobin has remained stable again after a recent drop during his orthopedic issues. We did review the appendiceal adenoma again as we have multiple times in the past. He has remained asymptomatic in this regard and therefore given his age and comorbidities we shall continue to hold off on any further colonoscopies and simply observe things. We did review that he should certainly call me if he develops any right lower abdominal pains and/or signs of bleeding. We also reviewed the finding of asymptomatic gallstones. We did review potential symptoms from gallstones including right upper quadrant pain and Jaundice. I did advise him that if that occurs he will need to seek surgical consultation either through your office or through the ER. At this point, if things remain stable From a GI standpoint, I advised Sage to see me again on a p.r.n. basis. I did advise him certainly call if he has any problems or questions I can be of assistance with in the future. Sage was very comfortable with this plan. Thank you again for allowing me to have participated in Sage's care. Please do not hesitate to contact me if I can be of any further assistance in the future. Plan Of Treatment Future Test Test Name Order Date COLONOSCOPY 07/02/2013 COLONOSCOPY 03/21/2018 COLONOSCOPY 08/21/2018 COLONOSCOPY 11/13/2019 COLONOSCOPY 03/25/2020 Insurance Providers Payer Name Payer Address Payer Phone Subscriber Number Group Number Insured Name Patient Relationship to Insured Coverage Start Date Coverage End Date [place]ARE [place] [address] [place] [address] [id number] JONA FATOU Self - patient is the insured Medical (General) History Medical History History ICD Code Colonoscopy in 2002 with the removal of 2 tubular adenomas Colonoscopy 02/11/2008--1 tubular adenom a removed HTN Hyperlipidemia Hospitalized end of 06/13/13 with fluid retention, elevated CPK, and some renal insufficiency--due to Simvastatin and Amlodipine--he was treated and improved--he did not have a MA Denies MA,DM,CVA,Lung disease Pacemaker 02/24/2014 Colonoscopy in 08/2013--tubul ar [...] x [address] Moe 1- 05/2020 Right hip replacement 11/2023 Femur fracture 1 week after above sugery 11/2023
--- OUTSIDE RECORDS SUMMARY | 2024-07-01 15:00 | XMS_ITS | Encounter Summary ---
Author Organization [facility] Address [address] [facility] [address] [place] [address] Phone Care Team Providers Care Recordist Name Role Phone Edwar Trujillo MD Primary Care Provider [phone] Encounter Details Date Type Department Care Team (Late st Contact Info) Description 06/04/2020 Orders Only [facility] [address] [place] [phone] Neal Burgess MD Stage 5 chronic kidney [...] failure documented in this encounter Care Teams Recordist Relationship Specialty Start Date End Date Edwar Trujillo MD [address] [place] [address] [address] [place] PCP - General 04/26/20 documented as of this encounter
--- OUTSIDE RECORDS SUMMARY | 2024-07-01 15:00 | XMS_ITS | Continuity of Care Document ---
Author Name [facility] Organization [facility] Care Team Providers Care Acetylene Cutter Name Role Phone [facility] Unavailable Unavailable Encounters Combined list of: 1) Encounters from [facility] facilities going backup to the last 18 months, not all [facility] inpatient encounters are included; 2) Encounters from the [facility] facilities going backup to 280 months. Location Location Details Encounter Type Encounter Number Reason For Visit Attending Provider ADM Date DC Date Status Disposition Source [place] [facility] Outpatient Encounter [id number] 11/14 [place] [facility]
--- OUTSIDE RECORDS SUMMARY | 2024-07-01 15:00 | XMS_ITS | Encounter Summary ---
Author Organization [facility] Address [address] [address] Phone Care Team Providers Care Wash Helper Name Role Phone Edwar Trujillo MD Primary Care Provider [phone] Encounter Details Date Type Department Care Team (Late st Contact Info) Description 06/18/2024 Treatment [facility] [address] [address] Amandeep López MD [address] [address] End stage renal disease; Dependence on renal dialysis Social History Tobacco Use Types Packs/Day Years [...] Dialysis Note - Amandeep López MD - 06/18/2024 12:00 AM EST Patient: George Levy : 1940 Note Type: Dialysis Rounds-Basic Service Date: 06/18/2024 This patient was personally seen for a basic visit as part of routine monthly dialysis care for end stage renal disease. Attending Flag Signalman: AMANDEEP LÓPEZ MD Dialysis Location: [facility] Schedule: Shift: 2 OVERVIEW Patient is stable. HOME MEDICATIONS Medications reviewed. Current [facility] Outpatient Medications acetaminophen (TYLENOL 8 HOUR) [...] (one) time each day Start Date: Current [facility] Allergies Allergen: CARVEDILOL Reaction: Other (see comments) Allergen: CEPHALEXIN Reaction: Other (see comments) Allergen: LISINOPRIL Reaction: Other (see comments) BP AND FLUID ASSESSMENT Acceptable blood pressure. Fluid status acceptable. ADEQUACY ASSESSMENT Kt/V, Natural Log 1.59 (05/21/24) 1.33 (04/23/24) 1.46 (03/19/24) UREA REDUCTION RATIO (%) 76 (05/21/24) 69 (04/23/24) 73 (03/19/24) BUN 86 (05/21/24) 111 (04/23/24) 95 (03/19/24) BUN Post Dialysis 21 (05/21/24) 34 (04/23/24) 26 (03/19/24) Creatinine 7.22 (05/21/24) 7.33 (04/23/24) 6.66 (03/19/24) Bicarbonate (CO2) 25 (05/21/24) 25 (04/23/24) 24 (03/19/24) Sodium 140 (05/21/24) 138 (04/23/24) 136 (03/19/24) ANEMIA ASSESSMENT Hgb 10.0 (06/04/24) 9.7 (05/21/24) 10.1 (04/23/24) Iron Saturation (TSat) 38 (05/21/24) 41 (04/23/24) 75 (03/19/24) Ferritin 1,466 (05/21/24) 1,599 (04/23/24) 1,550 (03/19/24) Iron 84 (05/21/24) 92 (04/23/24) 156 (03/19/24) TIBC 221 (05/21/24) 225 (04/23/24) 209 (03/19/24) MCV 100.3 (05/21/24) 100.3 (04/23/24) 95.2 (03/19/24) Platelets Test Canceled (05/21/24) 67 (04/23/24) 54 (03/19/24) BMM ASSESSMENT Calcium, Adjusted Total 8.8 05/21/24 9.1 04/23/24 8.9 03/19/24 Calcium 8.8 05/21/24 8.9 04/23/24 8.7 03/19/24 Phosphorus, Serum 5.6 05/21/24 6.5 04/23/24 5.4 03/19/24 Ca*PO4 49.3 05/21/24 57.8 04/23/24 47.0 03/19/24 PTH, Intact 339 04/23/24 Vitamin D, 25-Hydroxy 47 05/28/24 Magnesium 2.5 05/21/24 2.8 04/23/24 2.7 03/19/24 Alkaline Phosphatase 118 05/21/24 120 04/23/24 144 03/19/24 Aluminum 4 04/23/24 3 03/26/24 NUTRITION ASSESSMENT Albumin 4.0 05/21/24 3.8 04/23/24 3.7 03/19/24 Potassium 4.9 05/21/24 5.0 04/23/24 4.8 03/19/24 Hemoglobin A1C 5.0 04/23/24 ADDITIONAL LABS White Blood Cells 6.3 (05/21/24) 5.3 (04/23/24) 6.6 (03/19/24) Cholesterol 104 (04/23/24) HDL 46 (04/23/24) LDL-Calc 42 (04/23/24) Triglycerides 81 (04/23/24) Hep B Surface Antibody 756 (04/23/24) 667 (03/19/24) Uric Acid 6.9 (04/23/24) Signed by: AMANDEEP LÓPEZ MD on 06/18/2024 at 12:38:40 PM documented in this encounter Plan of Treatment Not on file documented as of this encounter Visit Diagnoses Diagnosis End stage renal disease Dependence on renal dialysis documented in this encounter Care Teams Wash Helper Relationship Specialty Start Date End Date Edwar Trujillo MD [address] [place] [address] [facility] [place] PCP - General 04/26/20 documented as of this encounter
--- OUTSIDE RECORDS SUMMARY | 2024-07-01 15:00 | XMS_ITS | Clinical Summary ---
Author Organization [facility] Address [address] [facility] [address] [place] [address] Phone Care Team Providers Care Airplane Woodworker Name Role Phone Edwar Trujillo MD Primary Care Provider [phone] Allergies Active Allergy Reactions Criticality Noted Date [...] Encounters Date Type Department Care Team Description 06/25/2024 Treatment [facility] [address] [address] Amandeep Gonzalez MD End stage renal disease; Dependence on renal dialysis 06/18/2024 Treatment [facility] [address] [address] Amandeep Gonzalez MD End stage renal disease; Dependence on renal dialysis 06/16/2024 Treatment [facility] [address] [address] Amandeep Gonzalez MD End stage renal disease; Dependence on renal dialysis 06/04/2024 Treatment [facility] [address] [address] Amandeep Gonzalez MD 05/28/2024 Treatment [facility] [address] [address] Amandeep Gonzalez MD 05/26/2024 Treatment [facility] [address] [address] Amandeep Gonzalez MD 05/21/2024 Treatment [facility] [address] [address] Amandeep Gonzalez MD 05/07/2024 Treatment [facility] [address] [place] [address] Amandeep Gonzalez MD 04/30/2024 Treatment [facility] [address] [place] [address] Amandeep Gonzalez MD 04/23/2024 Treatment [facility] [address] [address] Amandeep Gonzalez MD 04/18/2024 Treatment [facility] [address] [address] Amandeep Gonzalez MD 04/15/2024 Treatment [facility] [address] [address] Amandeep Gonzalez MD 04/07/2024 Treatment [facility] [address] [address] Otto Howell MD from Last 3 Months Immunizations Name [...] Procedure Name Priority Date/Time Associated Diagnosis Comments TRANSFERRIN SATURATION Routine 3:00 AM EST PROTEIN, TOTAL, SERUM Routine 06/18/2024 3:00 AM EST ELECTROLYTE PANEL Routine 06/18/2024 3:0 0 AM EST MAGNESIUM Routine 06/18/2024 3:00 AM EST LIH (HC) Routine 06/18/2024 3:00 AM EST LACTATE DEHYDROGENASE Routine 06/18/2024 3:00 AM EST GLUCOSE, RANDOM Routine 06/18/2024 3:00 AM EST CREATININE, SERUM Routine 06/18/2024 3:0 0 AM EST BILIRUBIN, TOTAL Routine 06/18/2024 3:00 AM EST AST Routine 06/18/2024 3:00 AM EST ALKALINE PHOSPHATASE Routine 06/18/2024 3:00 AM EST ALT Routine 06/18/2024 3:00 AM EST CALCIUM PHOSPHORUS PRODUCT, ADJUSTED (HC) Routine 06/18/2024 3:00 AM EST FERRITIN Routine 06/18/2024 3:00 AM EST KT/V NATURAL LOG, URR (HC) Routine 06/18/2024 3:00 AM EST CBC AND DIFFERENTIAL Routine 06/18/2024 3:00 AM EST HEMOGLOBIN Routine 06/04/2024 3:00 AM EST VITAMIN D 25 HYDROXY Routine 05/28/2024 3:00 AM EST FERRITIN Routine 05/21/2024 3:00 AM EST TRANSFERRIN SATURATION Routine 3:00 AM EST PROTEIN, TOTAL, SERUM Routine 05/21/2024 3:00 AM EST MAGNESIUM Routine 05/21/2024 3:00 AM EST KT/V NATURAL LOG, URR (HC) Routine 05/21/2024 3:00 AM EST ELECTROLYTE PANEL Routine 05/21/2024 3:0 0 AM EST LACTATE DEHYDROGENASE Routine 05/21/2024 3:00 AM EST LIH (HC) Routine 05/21/2024 3:00 AM EST GLUCOSE, RANDOM Routine 05/21/2024 3:00 AM EST CREATININE, SERUM Routine 05/21/2024 3:0 0 AM EST BILIRUBIN, TOTAL Routine 05/21/2024 3:00 AM EST AST Routine 05/21/2024 3:00 AM EST ALT Routine 05/21/2024 3:00 AM EST ALKALINE PHOSPHATASE Routine 05/21/2024 3:00 AM EST CALCIUM PHOSPHORUS PRODUCT, ADJUSTED (HC) Routine 05/21/2024 3:00 AM EST CBC AND DIFFERENTIAL Routine 05/21/2024 3:00 AM EST COLLECTION DATE (HC) Routine 04/23/2024 3:00 AM [...] EST HEMOGLOBIN Routine 04/02/2024 3:00 AM EST from Last 3 Months Results * LIH (06/18/2024 3:00 AM EST) Only the most recent of3 resultswithin the time period is included. Lipemia Normal Normal [facility] Icterus Normal Normal [facility] Hemolysis Normal Normal [facility] 06/18/2024 3:00 AM EST 06/19/2024 2:38 PM EST us Amandeep Gonzalez MD LAB [id number] LICITED RESULTS Final Result Performing Organization Address [facility] Co de Phone Number APS [facility] [address] [place] [address] * (ABNORMAL) Kt/V Natural Log, URR (06/18/2024 3:00 AM EST) Only the most recent of3 resultswithin the time period is included. Treatment Time 199 min [facility] Pre-Weight, lb 72.6 kg [facility] Post-Weight, lb 71.1 kg [facility] Ultrafiltration Rate 6 <=13 mL/kg/hr [facility] Comment: Recommend achieving Ultrafiltration Rate (UFR) <=10 mL/kg/hr References: Kimberley JALLOH et al. Kidney Int. 2010; 79(2):250-257 BUN 89(H) 7 - 25 mg/dL [facility] BUN Post Dialysis 20 7 - 25 mg/dL [facility] UREA REDUCTION RATIO (%) 78 >=65 % [facility] Kt/V Natural Log 1.69 >=1.2 [facility] 06/18/2024 3:00 AM EST 06/19/2024 2:38 PM EST us Amandeep Gonzalez MD LAB [id number] LICITED RESULTS Final Result Performing Organization Address [facility] de Phone Number [facility]PS [facility] [address] [place] [address] * (ABNORMAL) Calcium Phosphorus Product, Adjusted (06/18/2024 3:00 AM EST) Only the most recent of3 resultswithin the time period is included. Albumin 4.0 3.6 - 5.4 g/dL [facility] Calcium 8.6 8.6 - 10.3 mg/dL [facility] Phosphorus, Serum 6.1(H) 2.5 - 5.0 mg/dL [facility] Ca*PO4 52.5 <55.0 mg2/dL2 [facility] Calcium, Adjusted Total 8.6 8.6 - 10.3 mg/dL [facility] CA*PO4 CORRCTD 52.5 <55.0 mg2/dL2 [facility] 06/18/2024 3:00 AM EST 06/19/2024 2:38 PM EST us Amandeep Gonzalez MD LAB [id number] LICITED RESULTS Final Result Performing Organization Address [facility] Co de Phone Number APS [facility] [address] [place] [address] * (ABNORMAL) TSAT (06/18/2024 3:00 AM EST) Only the most recent of3 resultswithin the time period is included. [facility] Iron 66 65 - 175 ug/dL [facility] Transferrin 151(L) 215 - 365 mg/dL [facility] TIBC 211 211 - 406 ug/dL [facility] Iron Saturation (TSat) 31 22 - 52 % [facility] 06/18/2024 3:00 AM EST 06/19/2024 2:38 PM EST us Amandeep Gonzalez MD LAB BLOOD ORDERABLES Final Resu lt Performing Organization Address [facility] de Phone Number [facility]PS [facility] [address] [place] [address] * (ABNORMAL) CBC and Differential (06/18/2024 3:00 AM EST) Only the most recent of3 resultswithin the time period is included. [facility] DIFFERENTIAL MANUAL, 2 Not Indicated [facility] White Blood Cells 5.0 4.2 - 9.1 K/uL [facility] RBC 3.20(L) 4.63 - 6.08 M/uL [facility] Hgb 10.6(L) 13.7 - 17.5 g/dL [facility] Hemoglobin x 3 31.8(L) 41.1 - 52.5 g/dL [facility] Hematocrit 32.8(L) 40.1 - 51.0 % [facility] MCV 102.5(H) 79.0 - 92.2 fL [facility] MCH 33.1(H) 25.7 - 32.2 pg [facility] MCHC 32.3 32.3 - 36.5 g/dL [facility] Platelets 59(L) 163 - 337 K/uL [facility] Comment:Possible platelet cl umps detected. Review result with patient history. RDW 13.9 11.6 - 14.4 % [facility] Neutrophils Relative 73.2(H) 34.0 - 67.9 % [facility] Lymphocytes Relative 10.5(L) 21.8 - 53.1 % [facility] Monocytes 11.5 5.3 - 12.2 % [facility] Eosinophils Relative 3.2 0.8 - 7.0 % [facility] Basophils Relative 1.2 0.2 - 1.2 % [facility] Immature Granulocytes 0.4 0.0 - 1.0 % [facility] 06/18/2024 3:00 AM EST 06/19/2024 2:17 PM EST us Amandeep Gonzalez MD LAB BLOOD ORDERABLES Final Resu lt Performing Organization Address [facility] Co de Phone Number [facility] [address] [place] [address] * ALT (06/18/2024 3:00 AM EST) Only the most recent of3 resultswithin the time period is included. ALT (SGPT) 44 10 - 49 U/L [facility] 06/18/2024 3:00 AM EST 06/19/2024 2:38 PM EST us Amandeep Gonzalez MD LAB BLOOD ORDERABLES Final Resu lt Performing Organization Address [facility]/ZIP Co de Phone Number [facility] [address] [place] [address] * AST (06/18/2024 3:00 AM EST) Only the most recent of3 resultswithin the time period is included. AST (SGOT) 22 <34 U/L [facility] 06/18/2024 3:00 AM EST 06/19/2024 2:38 PM EST us Amandeep Gonzalez MD LAB BLOOD ORDERABLES Final Resu lt Performing Organization Address [facility] Co de Phone Number [facility] [address] [place] [address] * Protein, total (06/18/2024 3:00 AM EST) Only the most recent of3 resultswithin the time period is included. Total Protein 6.6 6.4 - 8.9 g/dL [facility] 06/18/2024 3:00 AM EST 06/19/2024 2:38 PM EST us Amandeep Gonzalez MD LAB BLOOD ORDERABLES Final Resu lt Performing Organization Address [facility] de Phone Number [facility]PS [facility] [address] [place] [address] * (ABNORMAL) Alkaline phosphatase (06/18/2024 3:00 AM EST) Only the most recent of3 resultswithin the time period is included. Alkaline Phosphatase 117(H) 46 - 116 U/L [facility] 06/18/2024 3:00 AM EST 06/19/2024 2:38 PM EST us Amandeep Gonzalez MD LAB BLOOD ORDERABLES Final Resu lt Performing Organization Address [facility] de Phone Number [facility]PS [facility] [address] [place] [address] * Magnesium (06/18/2024 3:00 AM EST) Only the most recent of3 resultswithin the time period is included. Magnesium 2.6 1.9 - 2.7 mg/dL [facility] 06/18/2024 3:00 AM EST 06/19/2024 2:38 PM EST us Amandeep Gonzalez MD LAB BLOOD ORDERABLES Final Resu lt Performing Organization Address [facility] Co de Phone Number [facility] [address] [place] [address] * Lactate dehydrogenase (06/18/2024 3:00 AM EST) Only the most recent of3 resultswithin the time period is included. LDH 197 120 - 246 U/L [facility] 06/18/2024 3:00 AM EST 06/19/2024 2:38 PM EST us Amandeep Gonzalez MD LAB BLOOD ORDERABLES Final Resu lt Performing Organization Address [facility] Co de Phone Number [facility] [address] [place] [address] * Glucose, random (06/18/2024 3:00 AM EST) Only the most recent of3 resultswithin the time period is included. Glucose 104 74 - 109 mg/dL [facility] 06/18/2024 3:00 AM EST 06/19/2024 2:38 PM EST us Amandeep Gonzalez MD LAB BLOOD ORDERABLES Final Resu lt Performing Organization Address [facility] de Phone Number [facility] [address] [place] [address] * (ABNORMAL) Ferritin (06/18/2024 3:00 AM EST) Only the most recent of3 resultswithin the time period is included. Ferritin 1,297(H) 22 - 322 ng/mL [facility] 06/18/2024 3:00 AM EST 06/19/2024 2:38 PM EST us Amandeep Gonzalez MD LAB BLOOD ORDERABLES Final Resu lt Performing Organization Address [facility] de Phone Number [facility] [address] [place] [address] * (ABNORMAL) Creatinine, serum (06/18/2024 3:00 AM EST) Only the most recent of3 resultswithin the time period is included. Creatinine 7.27(H) 0.70 - 1.30 mg/dL [facility] 06/18/2024 3:00 AM EST 06/19/2024 2:38 PM EST us Amandeep Gonzalez MD LAB BLOOD ORDERABLES Final Resu lt Performing Organization Address [facility] Co de Phone Number [facility] [address] [place] [address] * Bilirubin, total (06/18/2024 3:00 AM EST) Only the most recent of3 resultswithin the time period is included. Total Bilirubin 0.3 0.3 - 1.2 mg/dL [facility] 06/18/2024 3:00 AM EST 06/19/2024 2:38 PM EST us Aamndeep Gonzalez MD LAB BLOOD ORDERABLES Final Resu lt Performing Organization Address [facility] de Phone Number [facility] [address] [place] [address] * Electrolyte panel (06/18/2024 3:00 AM EST) Only the most recent of3 resultswithin the time period is included. Sodium 137 136 - 145 mEq/L [facility] Potassium 4.9 3.4 - 5.0 mEq/L [facility] Chloride 98 98 - 107 mEq/L [facility] Bicarbonate (CO2) 26 21 - 31 mEq/L [facility] Anion Gap 13 3 - 14 mEq/L [facility] 06/18/2024 3:00 AM EST 06/19/2024 2:38 PM EST us Amandeep Gonzalez MD LAB BLOOD ORDERABLES Final Resu lt Performing Organization Address [facility] Co de Phone Number [facility] [address] [place] [address] * (ABNORMAL) Hemoglobin (06/04/2024 3:00 AM EST) Only the most recent of4 resultswithin the time period is included. Hgb 10.0(L) 13.7 - 17.5 g/dL [facility] Hemoglobin x 3 30.0(L) 41.1 - 52.5 g/dL [facility] 06/04/2024 3:0 0 AM EST 06/06/2024 4:39 PM EST Amandeep Gonzalez MD LAB BLOOD ORDERABLES Final Resu lt Performing Organization Address [facility] de Phone Number [facility] [address] [place] [address] * Vitamin D 25 Hydroxy (05/28/2024 3:00 AM EST) Vitamin D, 25-Hydroxy 47 30 - 100 ng/mL [facility] Comment: Status ? Adult ?? Pediatric Deficient: ? <20 ? <15 Insufficient: ??20-29 ?? 15-19 Sufficient: ?30-100 ??20-100 05/28/2024 3:00 AM EST 05/29/2024 3:17 PM EST Amandeep Gonzalez MD LAB BLOOD ORDERABLES Final Resu lt Performing Organization Address [facility] de Phone Number [facility] [address] [place] [address] * Confirmation Test HCV (04/23/2024 3:00 AM EST) Hep C Ab Confirmation Not needed [facility] 04/23/2024 3:00 AM EST 04/24/2024 4:32 PM EST us Amandeep Gonzalez MD LAB BLOOD ORDERABLES Final Resu lt Performing Organization Address [facility] Co de Phone Number [facility] [address] [place] [address] * Collection Date (04/23/2024 3:00 AM EST) Collection Date See Comment [facility] Comment: Patient sample received may exceed specimen stability, based on the collection date electronically provided. ??When reviewing patient results, verify collection information and consider specimen stability before acting on any critical or panic results. 04/23/2024 3:00 AM EST us Amandeep Gonzalez MD LAB [id number] LICITED RESULTS Final Result Performing Organization Address [facility] Co de Phone Number [facility] [address] [place] [address] * HEPATITIS C ABS W/REFLEX RNA DETECTR (04/23/2024 3:00 AM EST) Hep C Virus Ab Non-Reacti ve Non-Reacti ve [facility] 04/23/2024 3:00 AM EST 04/24/2024 3:54 PM EST us Amandeep Gonzalez MD LAB [id number] LICITED RESULTS Final Result Performing Organization Address [facility] de Phone Number [facility] [address] [place] [address] * Hepatitis B Surface Ag w/Reflex Confirmation (04/23/2024 3:00 AM EST) Hep B Surface Antigen Negative Negative [facility] 04/23/2024 3:00 AM EST 04/24/2024 3:54 PM EST us Amandeep Gonzalez MD LAB BLOOD ORDERABLES Final Resu lt Performing Organization Address [facility] de Phone Number [facility] [address] [place] [address] * Aluminum level (04/23/2024 3:00 AM EST) Aluminum 4 1 - 20 ug/L [facility] 04/23/2024 3:00 AM EST 04/24/2024 4:13 PM EST us Amandeep Gonzalez MD LAB BLOOD ORDERABLES Final Resu lt Performing Organization Address [facility] Co de Phone Number [facility] [address] [place] [address] * Hepatitis B Surface Antibody (04/23/2024 3:00 AM EST) Hep B Surface Antibody 756 mIU/mL [facility] Comment: Interpretation: <10: No Immunity >=10: Probable Immunity 04/23/2024 3:00 AM EST 04/24/2024 3:54 PM EST us Amandeep Gonzalez MD LAB BLOOD ORDERABLES Final Resu lt Performing Organization Address [facility] de Phone Number [facility] [address] [place] [address] * Uric Acid (04/23/2024 3:00 AM EST) Pathologist [facility] Uric Acid 6.9 4.4 - 7.6 mg/dL [facility] 04/23/2024 3:00 AM EST 04/24/2024 3:54 PM EST us Amandeep Gonzalez MD LAB BLOOD ORDERABLES Final Resu lt Performing Organization Address [facility] de Phone Number [facility] [address] [place] [address] * PTH, Intact (04/23/2024 3:00 AM EST) Pathologist [facility] PTH, Intact 339 160 - 721 pg/mL [facility] Comment: Suggested (KDIGO) ESRD maintenance range is two to nine times the upper normal limit (80.1 pg/mL) for the laboratory. 04/23/2024 3:00 AM EST 04/24/2024 3:54 PM EST us Amandeep Gonzalez MD LAB BLOOD ORDERABLES Final Resu lt Performing Organization Address [facility] de Phone Number [facility] [address] [place] [address] * Hemoglobin A1c (04/23/2024 3:00 AM EST) Pathologist [facility] Hemoglobin A1C 5.0 <5.7 % [facility] Comment: Methodology: Enzymatic HbA1c (NGSP %) ?Suggested Diagnosis >6.4% ? Diabetic 5.7-6.4% ?Pre-Diabetic <5.7% ? Non-Diabetic Diabetic Glucose Control Evaluation: Therapeutic action suggested at >8.0% ADA recommends a glycemic goal of <7.0% 04/23/2024 3:00 AM EST 04/24/2024 4:32 PM EST us Amandeep Gonzalez MD LAB BLOOD ORDERABLES Final Resu lt [facility] [address] [place] [address] * (ABNORMAL) Lipid panel (04/23/2024 3:00 AM [...] MD LAB BLOOD ORDERABLES Final Resu lt [facility] [address] [place] [address] from Last 3 Months Insurance MEDICARE MEDICARE Care Teams Airplane Woodworker Relationship Specialty Start Date End Date Edwar Trujillo MD [address] [place] [address] [address] [facility] [place] PCP - General 04/26/20
--- OUTSIDE RECORDS SUMMARY | 2024-07-01 15:00 | XMS_ITS | Encounter Summary ---
Author Organization [facility] Address [address] [address] Phone Care Team Providers Care Chemist Proteins Name Role Phone Edwar Trujillo MD Primary Care Provider [phone] Encounter Details Date Type Department Care Team (Late st Contact Info) Description 06/04/2024 Treatment [facility] [address] [address] Amandeep López MD [address] [address] Social History Tobacco Use Types [...] Dialysis Note - Amandeep López MD - 06/04/2024 12:00 AM EST Patient: George Levy : 1940 Note Type: Dialysis Rounds-Basic Service Date: 06/04/2024 This patient was personally seen for a basic visit as part of routine monthly dialysis care for end stage renal disease. Attending Feather Separator: AMANDEEP LÓPEZ MD Dialysis Location: [facility] Schedule: Shift: 2 OVERVIEW Patient is stable. HOME MEDICATIONS [facility]ations [facility]. [facility] Medications acetaminophen (TYLENOL 8 [...] (one) time each day Start Date: Current [facility] Allergies Allergen: CARVEDILOL Reaction: Other (see [...] 138 (04/23/24) 136 (03/19/24) ANEMIA ASSESSMENT Hgb 9.7 (05/21/24) 10.1 (04/23/24) 9.4 (04/14/24) Iron Saturation (TSat) 38 (05/21/24) 41 (04/23/24) [...] (04/23/24) Signed by: AMANDEEP LÓPEZ MD on 06/04/2024 at 09:00:33 PM documented in this encounter Plan of Treatment Not on file documented as of this encounter Visit Diagnoses Not on filedocumented in this encounter Care Teams Chemist Proteins Relationship Specialty Start Date End Date Edwar Trujillo MD [address] [place] [address] [address] ERICA LEDESMA PCP - General 04/26/20 documented as of this encounter
--- OUTSIDE RECORDS SUMMARY | 2024-07-01 15:00 | XMS_ITS | Encounter Summary ---
Author Organization [facility] Address [address] [address] Phone Care Team Providers Care Pit Worker Power Shovel Name Role Phone Edwar Trujillo MD Primary Care Provider [phone] Encounter Details Date Type Department Care Team (Late st Contact Info) Description 06/16/2024 Treatment [facility] [address] [address] Amandeep López MD [address] [address] End stage renal disease; Dependence [...] Dialysis Note - Amandeep López MD - 06/16/2024 12:00 AM EST Patient: George Levy : 1940 Note Type: Dialysis Rounds-Comp Service Date: 06/16/2024 This patient was personally seen for a complete visit as part of routine monthly dialysis care for end stage renal disease. Attending Manager Rn Case: AMANDEEP LÓPEZ MD Dialysis Location: [facility] Schedule: Shift: 2 OVERVIEW Patient is stable. HOME MEDICATIONS Medications reviewed. Current [facility] Medications acetaminophen (TYLENOL 8 HOUR) CR [...] (one) time each day Start Date: Current [facility] Allergies Allergen: CARVEDILOL Reaction: Other (see comments) Allergen: CEPHALEXIN Reaction: Other (see comments) Allergen: LISINOPRIL Reaction: Other (see comments) BP AND FLUID ASSESSMENT Acceptable blood pressure. Fluid status acceptable. ADEQUACY ASSESSMENT Target met. Prescription compliance acceptable. Kt/V, Natural Log 1.59 (05/21/24) 1.33 (04/23/24) 1.46 (03/19/24) UREA REDUCTION RATIO (%) 76 (05/21/24) 69 (04/23/24) 73 (03/19/24) BUN 86 (05/21/24) 111 (04/23/24) 95 (03/19/24) BUN Post Dialysis 21 (05/21/24) 34 (04/23/24) 26 (03/19/24) Creatinine 7.22 (05/21/24) 7.33 (04/23/24) 6.66 (03/19/24) Bicarbonate (CO2) 25 (05/21/24) 25 (04/23/24) 24 (03/19/24) Sodium 140 (05/21/24) 138 (04/23/24) 136 (03/19/24) ACCESS ASSESSMENT Vascular access examined. Current access is permanent and functioning well. ANEMIA ASSESSMENT Anemia targets met. Continue current ANGELINA dose. Iron adjusted per protocol. Hgb 10.0 (06/04/24) 9.7 (05/21/24) 10.1 (04/23/24) Iron Saturation (TSat) 38 (05/21/24) 41 (04/23/24) 75 (03/19/24) Ferritin 1,466 (05/21/24) 1,599 (04/23/24) 1,550 (03/19/24) Iron 84 (05/21/24) 92 (04/23/24) 156 (03/19/24) TIBC 221 (05/21/24) 225 (04/23/24) 209 (03/19/24) MCV 100.3 (05/21/24) 100.3 (04/23/24) 95.2 (03/19/24) Platelets Test Canceled (05/21/24) 67 (04/23/24) 54 (03/19/24) BMM ASSESSMENT PTH within target. Phosphorus controlled. Calcium controlled. Bone and mineral metabolism parameters reviewed. Calcium, Adjusted Total 8.8 05/21/24 9.1 04/23/24 8.9 03/19/24 Calcium 8.8 05/21/24 8.9 04/23/24 8.7 03/19/24 Phosphorus, Serum 5.6 05/21/24 6.5 04/23/24 5.4 03/19/24 Ca*PO4 49.3 05/21/24 57.8 04/23/24 47.0 03/19/24 PTH, Intact 339 04/23/24 Vitamin D, 25-Hydroxy 47 05/28/24 Magnesium 2.5 05/21/24 2.8 04/23/24 2.7 03/19/24 Alkaline Phosphatase 118 05/21/24 120 04/23/24 144 03/19/24 Aluminum 4 04/23/24 3 03/26/24 NUTRITION ASSESSMENT Albumin at goal. Potassium controlled. Albumin 4.0 05/21/24 3.8 04/23/24 3.7 03/19/24 Potassium 4.9 05/21/24 5.0 04/23/24 4.8 03/19/24 Hemoglobin A1C 5.0 04/23/24 PHYSICAL EXAM Exam performed. Vital Signs Reviewed. Lungs - Clear. CV - Blood pressure noted. No edema. EXT - No ulcers. ADDITIONAL LABS White Blood Cells 6.3 (05/21/24) 5.3 (04/23/24) 6.6 (03/19/24) Cholesterol 104 (04/23/24) HDL 46 (04/23/24) LDL-Calc 42 (04/23/24) Triglycerides 81 (04/23/24) Hep B Surface Antibody 756 (04/23/24) 667 (03/19/24) Uric Acid 6.9 (04/23/24) Signed by: AMANDEEP LÓPEZ MD on 06/16/2024 at 10:44:14 PM documented in this encounter Plan of Treatment Not on file documented as of this encounter Visit Diagnoses Diagnosis End stage renal disease Dependence on renal dialysis documented in this encounter Care Teams Pit Worker Power Shovel Relationship Specialty Start Date End Date Edwar Trujillo MD [address] [place] [address] BELINDA [facility] YINGERICA MARIE PCP - General 04/26/20 documented as of this encounter
--- OUTSIDE RECORDS SUMMARY | 2024-07-01 15:00 | XMS_ITS | Encounter Summary ---
Author Organization [facility] Address [address] [address] Phone Care Team Providers Care Production Supervisor Trainee Name Role Phone Edwar Trujillo MD Primary Care Provider [phone] Encounter Details Date Type Department Care Team (Late st Contact Info) Description 06/25/2024 Treatment [facility] [address] [address] Amandeep López MD [address] [address] End stage renal disease; Dependence [...] Dialysis Note - Amandeep López MD - 06/25/2024 12:00 AM EDT Patient: George Levy : 1940 Note Type: Dialysis Rounds-Basic Service Date: 06/25/2024 This patient was personally seen for a basic visit as part of routine monthly dialysis care for end stage renal disease. Attending Lean Six Sigma Black Belt: AMANDEEP LÓPEZ MD Dialysis Location: [facility] Schedule: Shift: 2 OVERVIEW Patient is stable. HOME MEDICATIONS Medications reviewed. Current [facility] Medications acetaminophen (TYLENOL 8 HOUR) CR [...] (one) time each day Start Date: Current [facility] Allergies Allergen: CARVEDILOL Reaction: Other (see comments) Allergen: CEPHALEXIN Reaction: Other (see comments) Allergen: LISINOPRIL Reaction: Other (see comments) BP AND FLUID ASSESSMENT Acceptable blood pressure. Fluid status acceptable. ADEQUACY ASSESSMENT Kt/V, Natural Log 1.69 (06/18/24) 1.59 (05/21/24) 1.33 (04/23/24) UREA REDUCTION RATIO (%) 78 (06/18/24) 76 (05/21/24) 69 (04/23/24) BUN 89 (06/18/24) 86 (05/21/24) 111 (04/23/24) BUN Post Dialysis 20 (06/18/24) 21 (05/21/24) 34 (04/23/24) Creatinine 7.27 (06/18/24) 7.22 (05/21/24) 7.33 (04/23/24) Bicarbonate (CO2) 26 (06/18/24) 25 (05/21/24) 25 (04/23/24) Sodium 137 (06/18/24) 140 (05/21/24) 138 (04/23/24) ANEMIA ASSESSMENT Hgb 10.6 (06/18/24) 10.0 (06/04/24) 9.7 (05/21/24) Iron Saturation (TSat) 31 (06/18/24) 38 (05/21/24) 41 (04/23/24) Ferritin 1,297 (06/18/24) 1,466 (05/21/24) 1,599 (04/23/24) Iron 66 (06/18/24) 84 (05/21/24) 92 (04/23/24) TIBC 211 (06/18/24) 221 (05/21/24) 225 (04/23/24) MCV 102.5 (06/18/24) 100.3 (05/21/24) 100.3 (04/23/24) Platelets 59 (06/18/24) Test Canceled (05/21/24) 67 (04/23/24) BMM ASSESSMENT Calcium, Adjusted Total 8.6 06/18/24 8.8 05/21/24 9.1 04/23/24 Calcium 8.6 06/18/24 8.8 05/21/24 8.9 04/23/24 Phosphorus, Serum 6.1 06/18/24 5.6 05/21/24 6.5 04/23/24 Ca*PO4 52.5 06/18/24 49.3 05/21/24 57.8 04/23/24 PTH, Intact 339 04/23/24 Vitamin D, 25-Hydroxy 47 05/28/24 Magnesium 2.6 06/18/24 2.5 05/21/24 2.8 04/23/24 Alkaline Phosphatase 117 06/18/24 118 05/21/24 120 04/23/24 Aluminum 4 04/23/24 3 03/26/24 NUTRITION ASSESSMENT Albumin 4.0 06/18/24 4.0 05/21/24 3.8 04/23/24 Potassium 4.9 06/18/24 4.9 05/21/24 5.0 04/23/24 Hemoglobin A1C 5.0 04/23/24 ADDITIONAL LABS White Blood Cells 5.0 (06/18/24) 6.3 (05/21/24) 5.3 (04/23/24) Cholesterol 104 (04/23/24) HDL 46 (04/23/24) LDL-Calc 42 (04/23/24) Triglycerides 81 (04/23/24) Hep B Surface Antibody 756 (04/23/24) 667 (03/19/24) Uric Acid 6.9 (04/23/24) Signed by: AMANDEEP LÓPEZ MD on 06/25/2024 at 10:39:04 PM documented in this encounter Plan of Treatment Not on file documented as of this encounter Visit Diagnoses Diagnosis End stage renal disease Dependence on renal dialysis documented in this encounter Care Teams Production Supervisor Trainee Relationship Specialty Start Date End Date Edwar Trujillo MD [address] [place] [address] BELINDA [facility] ERICA LEDESMA PCP - General 04/26/20 documented as of this encounter
--- OUTSIDE RECORDS SUMMARY | 2024-07-01 15:01 | XMS_ITS | Encounter Summary ---
Author Organization [facility] Address [address] [place] [address] Phone Care Team Providers Care Tnt Line Supervisor Name Role Phone Edwar Trujillo MD Primary Care Provider Reason for Visit * Reason Comments Med Refill Encounter Details Date Type Department Care Team (Late st Contact Info) Description 09/06/2022 Refill [facility] [address] [place] [address] Anirudh Tinoco MD Social History [...] on filedocumented in this encounter Care Teams Tnt Line Supervisor Relationship Specialty Start Date End Date Edwar Trujillo MD [address] [place] [address] [address] [place] PCP - General 04/26/20 documented as of this encounter
--- OUTSIDE RECORDS SUMMARY | 2024-07-01 15:01 | XMS_ITS ---
Author Organization [facility] Address [address] [place] [address] Care Team Providers Care Emergency Medical Service Manager Name Role Phone Ronnie OVALLE, Edwar Primary Care Provider UnavailDeven Mora Unavailable [phone] Allergies Allergen (clinical drug ingredient) Drug/Non Drug Allergy documented on EMR Reaction Allergy Type Onset Date Status lisinopril Lisinopril Unknown Drug Allergy Activ e cephalexin Cephalexin Unknown Drug Allergy Activ e REASON FOR VISIT Patient presents today for blood in stools. Medications Medication SIG (Take, Route, Frequency, Duration) [...] 1 tablet Orally once a day Active Social History Alcohol Screen Question Answer Notes Did you have a drink containing alcohol in the p ast year? No Points 0 Interpretation Negative Section Notes: Nonsmoker; no sig alcohol Problems Problem Type SNOMED Code ICD Code Onset Dates Problem Status W/U Status Risk Notes Problem Gallstones (588190605) Gallstones (K80.20) Active confirmed Vital Signs Blood pressure systolic 00 mm Hg 02/26/20 24 Blood pressure diastolic 00 mm Hg 024 Height 5 ft 5 in in 02/26/2024 Weight 148 lbs 02/26/2024 BMI 24.63 kg/m2 02/26/2024 Encounters Encounter Location Date Provider Diagnosis 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 02/26/2024 History of adenomatous polyp of colon [...] assistance in the future. Plan Of Treatment Next Appt Details Follow Up: prn, Reason: Progress Notes * FATOU TENORIO NDOB:1940 (83 yo M)Acc No.[id number]:02/26/2024 Progress Notes Patient:?FATOU TENORIO N Provider:?Deven Mccallum MD :1940???Age:83 Y???Sex:Male Nino e:02/26/2024 Address:[address] [place], [place] [id number] Pcp:Edwar Trujillo MD Subjective: * Chief Complaints: * ???Patient presents today fo r blood in stools. * HPI: ???incontinence:? I saw Sage in followup today in regard to his history of anemia and tubular adenoma of the appendiceal orifice. ?Since I last saw Sage in July he reports that he has been doing well from a GI standpoint. He has been eating comfortably and denies any significant heartburn, dysphagia, early satiety, nausea, nor vomiting. He denies abdominal pain, signs of jaundice, nor unintentional weight loss. His bowel movements are regular and without any signs of melena nor hematochezia. 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 About a week later he suffered a right femur fracture during physical therapy and had that repaired as well. His hemoglobin went down as low as 6.9 after his femur fracture, but most recently it was up to 11.0 as of February 19 when it Was checked at dialysis. ?Of note, I did notice he had a CT scan earlier in the year with the finding of some gallstones but without any sign of cholecystitis nor biliary disease. We did review that today and he denies any symptoms of abdominal pain or jaundice. * ROS:?General/Constitutional:?Change in appetite?denies.?Chills?denies.?Fatigue?denies.?Ophthalmologic:?Patient denies? Negative..?ENT:?Patient denies?Negative..?Respiratory:?Patient denies?No coughing/hemoptysis..?Cardiovascular:?Patient denies? No chest pain/orthopnea..?Gastrointestinal:?Comments?See HPI for details.?Genitourinary:?Patient denies? No dysuria/hematuria..?Musculoskeletal:?Patient denies? No specific arthralgias/myalgias..?Skin:?Patient denies?No rash/pruritus..?Neurologic:?Patient denies? No headaches/seizures..?Psychiatric:?Patient denies?Negative..? * Medical History:? * Surgical History:?Broken jaw Pacemaker 02/24/14Right shoulder cyst removal- Dr. Mireles 11/04/2019AV Fistula x [address] Moe 04/2020- 1Right hip replacement 11/2023Femur fracture 1 week after above sugery 11/2023 * Hospitalization/Major Diagno stic Procedure:?No Hospitalization History. * Family History:?Father: dece ased, diagnosed with Diabetes.?Mother: , diagnosed with Diabetes.?Siblings: alive, brother lung cancer.? No colorectal cancer. * Social History:?Tobacco Use:?Tobacco Use/Smoking?Are you a: nonsmoker.?Drugs/Alcohol:?Alcohol Screen?Did you have a drink containing alcohol in the past year??No,?Points?0,?Interpretation?Negative.?Miscellaneous:?Marital status: . Occupation: retired. ???Nonsmoker; no sig alcohol. * Medications:?TakingLosartan Potassium 25 MG Tablet 1 tablet Orally Once a dayCoreg 6.25 MG Tablet 1 tablet with food Orally Twice a dayCollagen Aspirin 81 MG Tablet Delayed Release 1 tablet Orally Once a dayMultivitamin - tablet 1 tablet Orally once a dayAtorvastatin Calcium 10 MG Tablet 1 tablet Orally Once a dayFurosemide 40 mg 1 tab Oral once a dayEnsure - Liquid as directed Orally Taking Losartan Potassium 25 MG Tablet 1 tablet Orally Once a dayTaking Coreg 6.25 MG Tablet 1 tablet with food Orally Twice a dayTaking Collagen Taking Aspirin 81 MG Tablet Delayed Release 1 tablet Orally Once a dayTaking Multivitamin - tablet 1 tablet Orally once a dayTaking Atorvastatin Calcium 10 MG Tablet 1 tablet Orally Once a dayTaking Furosemide 40 mg 1 tab Oral once a dayTaking Ensure - Liquid as directed Orally DiscontinuedCoreg 6.25 MG Tablet 1 tablet with food Orally Twice a dayCollagen Fenestrated (Porcine) Medication List reviewed and reconciled with the patientDiscontinued Coreg 6.25 MG Tablet 1 tablet with food Orally Twice a dayDiscontinued Collagen Fenestrated (Porcine) Medication List reviewed and reconciled with the patient * Allergies:?LisinoprilCephale margarita[Allergies Verified] Objective: * Vitals:?Wt: 148 lbs, Ht:5 ft 5 in, BMI:24.63 Index, BP: 00/00 mm Hg. * Examination: ???General Examination: ?GENERAL APPEARANCE:?pleasant, well nourished, well developed, in no acute distress.?EYES:?sclera non-icteric.?ORAL CAVITY:?mucosa moist.?NECK/THYROID:?no cervical lymphadenopathy, neck supple.?SKIN:?nonjaundiced, no spider angiomata..?HEART:?S1, S2 normal.?LUNGS:?clear to auscultation bilaterally.?ABDOMEN:?normal bowel sounds, no guarding or rigidity, no hepatosplenomegaly, no masses palpable, soft, nontender, nondistended..?EXTREMITIES:?no edema.?NEUROLOGIC:?alert and oriented.? 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 Overall, Sage appears quite well from a [...] of any further assistance in the future. Plan: * Treatment: * Procedure Codes:?1036F TOBAC CO [id number] BP SCR NOT PRFRM REC REASON NOS * Preventive Medicine:? ??Screenings:?Fall Risk Screening?Fall Risk Assessment:?No falls in the past year,?Screening:?No falls in the past year,?Assessment:?Not performed, no reason specified,?Plan of Care:?Not documented, no reason specified.? * Follow Up:?prn * * Sign off status: Completed true * Provider:?Deven Mccallum MD Date:? 024 Generated for Keiko shelley/Gaurav/Johan on:?07/01/2024 03:00 PM EDT History and Physical Notes * HPI (History of Present Illness) Category Sub-Category Detail Notes Category Not es incontinence I saw Sage in followup today in regard to his history of anemia and tubular adenoma of the appendiceal orifice. Since I last saw Sage in July he reports that he has been doing well from a GI standpoint. He has been eating comfortably and denies any significant heartburn, dysphagia, early satiety, nausea, nor vomiting. He denies abdominal pain, signs of jaundice, nor unintentional weight loss. His bowel movements are regular and without any signs of melena nor hematochezia. 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 About a week later he suffered a right femur fracture during physical therapy and had that repaired as well. His hemoglobin went down as low as 6.9 after his femur fracture, but most recently it was up to 11.0 as of February 19 when it Was checked at dialysis. Of note, I did notice he had a CT scan earlier in the year with the finding of some gallstones but without any sign of cholecystitis nor biliary disease. We did review that today and he denies any symptoms of abdominal pain or jaundice. Examination Category Sub-Category Detail Notes Category Not es General Examination GENERAL APPEARANCE: pleasant , well [...]
--- OUTSIDE RECORDS SUMMARY | 2024-07-01 15:01 | XMS_ITS ---
Author Organization [facility] Address [address] [place] [phone] Care Team Providers Care Ignition Expert Name Role Phone Edwar Trujillo MD Primary Care Provider UnavailDeven Mora Unavailable [phone] Allergies Allergen (clinical drug ingredient) Drug/Non Drug Allergy documented on EMR Reaction Allergy Type Onset Date Status lisinopril Lisinopril Unknown Drug Allergy Activ e cephalexin Cephalexin Unknown Drug Allergy Activ e carvedilol Carvedilol Unknown Drug Allergy Activ e REASON FOR VISIT Patient presents today for a f/u office visit Medications Medication SIG (Take, Route, Frequency, Duration) [...] Ensure - as directed Orally 01/30/2023 Active Social History Alcohol Screen Question Answer Notes Did you have a drink containing alcohol in the p ast year? No Points 0 Interpretation Negative Section Notes: Nonsmoker; no sig alcohol Vital Signs Temperature 98.2 degrees Fahrenheit 01/31/20 23 Blood pressure systolic 000 mm Hg 01/31/20 23 Blood pressure diastolic 00 mm Hg 023 Height 67 in 01/30/2023 Weight 160 lbs 01/30/2023 BMI 25.06 kg/m2 01/30/2023 Encounters Encounter Location Date Provider Diagnosis [facility] [address] [place] [address] 01/30/2023 Deven Mccallum Heme + stool R19.5 ; Anemia, unspecified type D64.9 and History of adenomatous polyp of colon Z86.010 Assessments Encounter Date Diagnosis (ICD Code) Assessment Notes Treatment Notes Treatment Clinical Notes Section Notes 01/30/2023 Heme + stool (ICD-10 - R19.5) Overall, Sage appears quite well at the present time. He is not having any new nor worrisome GI symptoms. His anemia seems to be remaining stable at the present time, although it does sound like he does receive periodic iron infusions at his dialysis. We did have another detailed discussion today regarding the appendiceal orifice adenoma. I advised him that I still think it's reasonable to simply observe this rather than put him through any further colonoscopies given his age and medical issues. I still think the benefit of a colonoscopy with further attempts at removing the appendiceal orifice would not outweigh any theoretical risk. I also don't think surgical intervention would be warranted given his age and medical issues as well. As such, I recommended that we continue to simply observe things. I will plan to see him in the spring for a followup visit but did advise him to contact me prior to that if he is having any problems or questions I can be of assistance with. Sage was very comfortable with this plan. Thank you again for allowing me to in Sage's care. I shall continue to keep you advised of his progress. 01/30/2023 Anemia, unspecified type (ICD-10 - D64.9) Overall, Sage appears quite well at the present time. He is not having any new nor worrisome GI symptoms. His anemia seems to be remaining stable at the present time, although it does sound like he does receive periodic iron infusions at his dialysis. We did have another detailed discussion today regarding the appendiceal orifice adenoma. I advised him that I still think it's reasonable to simply observe this rather than put him through any further colonoscopies given his age and medical issues. I still think the benefit of a colonoscopy with further attempts at removing the appendiceal orifice would not outweigh any theoretical risk. I also don't think surgical intervention would be warranted given his age and medical issues as well. As such, I recommended that we continue to simply observe things. I will plan to see him in the spring for a followup visit but did advise him to contact me prior to that if he is having any problems or questions I can be of assistance with. Sage was very comfortable with this plan. Thank you again for allowing me to in Sage's care. I shall continue to keep you advised of his progress. 01/30/2023 History of adenomatous polyp of colon (ICD-10 - Z86.010) Overall, Sage appears quite well at the present time. He is not having any new nor worrisome GI symptoms. His anemia seems to be remaining stable at the present time, although it does sound like he does receive periodic iron infusions at his dialysis. We did have another detailed discussion today regarding the appendiceal orifice adenoma. I advised him that I still think it's reasonable to simply observe this rather than put him through any further colonoscopies given his age and medical issues. I still think the benefit of a colonoscopy with further attempts at removing the appendiceal orifice would not outweigh any theoretical risk. I also don't think surgical intervention would be warranted given his age and medical issues as well. As such, I recommended that we continue to simply observe things. I will plan to see him in the spring for a followup visit but did advise him to contact me prior to that if he is having any problems or questions I can be of assistance with. Sage was very comfortable with this plan. Thank you again for allowing me to in Sage's care. I shall continue to keep you advised of his progress. Plan Of Treatment Next Appt Details Follow Up: Spring 2023, Reas on: Progress Notes * FATOU TENORIO NDOB:1940 (82 yo M)Acc No.[id number]:01/30/2023 Progress Notes Patient:?FATOU TENORIO N Provider:?Deven Mccallum MD :1940???Age:82 Y???Sex:Male Nino e:01/30/2023 Address:[address] [place] [address] [place], [id number] Pcp:Edwar Trujillo MD Subjective: * Chief Complaints: * ???Patient presents today fo r a f/u office visit * HPI: ???incontinence:? I saw Sage in followup today in regard to his underlying history of anemia, heme-positive stool, and a known appendiceal adenoma. ?Since I last saw Sage in the Spring he reports that he has been feeling well. He continues on his hemodialysis 3 times a week. He enjoys a good appetite, without any significant heartburn or dysphagia. He reports his bowel movements have been regular and without any signs of bleeding. He denies any abdominal pain, jaundice, nor weight loss. ?Laboratories from January 17 revealed a hemoglobin of 11.3. Labs in December revealed an Iron of 169. * ROS:?General/Constitutional:?Change in appetite?denies.?Chills?denies.?Fatigue?denies.?Ophthalmologic:?Patient denies? Negative..?ENT:?Patient denies?Negative..?Respiratory:?Patient denies?No coughing/hemoptysis..?Cardiovascular:?Patient denies? No chest pain/orthopnea..?Gastrointestinal:?Comments?See HPI for details.?Genitourinary:?Patient denies? No dysuria/hematuria..?Musculoskeletal:?Patient denies? No specific arthralgias/myalgias..?Skin:?Patient denies?No rash/pruritus..?Neurologic:?Patient denies? No headaches/seizures..?Psychiatric:?Patient denies?Negative..? * Medical History:? * Surgical History:?Broken jaw Pacemaker 02/24/14Right shoulder cyst removal- Dr. Mireles 11/04/2019AV Fistula x [address] Moe 04/2020- 05/2020 * Hospitalization/Major Diagno stic Procedure:?Denies Past Hospitalization * Family History:?Father: dece ased, diagnosed with Diabetes.?Mother: , diagnosed with Diabetes.?Siblings: alive, brother lung cancer.? No colorectal cancer. * Social History:?Tobacco Use:?Tobacco Use/Smoking?Are you a: nonsmoker.?Drugs/Alcohol:?Alcohol Screen?Did you have a drink containing alcohol in the past year??No,?Points?0,?Interpretation?Negative.?Miscellaneous:?Marital status: . Occupation: retired. ???Nonsmoker; no sig alcohol. * Medications:?TakingCollagen Aspirin 81 MG Tablet Delayed Release 1 tablet Orally Once a dayMultivitamin - tablet 1 tablet Orally once a dayAtorvastatin Calcium 10 MG Tablet 1 tablet Orally Once a dayFurosemide 40 mg 1 tab Oral once a dayFurosemide 80 MG Tablet Oral Coreg 12.5 MG Tablet 1 tablet with food Orally Twice a dayCollagen Fenestrated (Porcine) Ensure - Liquid as directed Orally Taking Collagen Taking Aspirin 81 MG Tablet Delayed Release 1 tablet Orally Once a dayTaking Multivitamin - tablet 1 tablet Orally once a dayTaking Atorvastatin Calcium 10 MG Tablet 1 tablet Orally Once a dayTaking Furosemide 40 mg 1 tab Oral once a dayTaking Furosemide 80 MG Tablet Oral Taking Coreg 12.5 MG Tablet 1 tablet with food Orally Twice a dayTaking Collagen Fenestrated (Porcine) Taking Ensure - Liquid as directed Orally DiscontinuedLabetalol HCl 200 MG Tablet 1 tablet Orally Twice a daydilTIAZem HCl 120 MG Tablet 1 tablet before meals Orally two times a dayMedication List reviewed and reconciled with the patientDiscontinued Labetalol HCl 200 MG Tablet 1 tablet Orally Twice a dayDiscontinued dilTIAZem HCl 120 MG Tablet 1 tablet before meals Orally two times a dayMedication List reviewed and reconciled with the patient * Allergies:?LisinoprilCarvedi lolCephalexinyes[Allergies Verified] Objective: * Vitals:?Wt:160 lbs, Ht: 67 i n, BMI:25.06 Index, BP: 000/00 mm Hg, Temp: 98.2. * Examination: ???General Examination: ?GENERAL APPEARANCE:?pleasant, well nourished, well developed, in no acute distress.?EYES:?sclera non-icteric.?ORAL CAVITY:?mucosa moist.?NECK/THYROID:?no cervical lymphadenopathy, neck supple.?SKIN:?nonjaundiced, no spider angiomata..?HEART:?S1, S2 normal.?LUNGS:?clear to auscultation bilaterally.?ABDOMEN:?normal bowel sounds, no guarding or rigidity, no hepatosplenomegaly, no masses palpable, soft, nontender, nondistended..?EXTREMITIES:?no edema.?NEUROLOGIC:?alert and oriented.? Assessment: * Assessment: 1.?Heme + stool - R19.5 (Destiny beltran)?2.?Anemia, unspecified type - D64.9?3.?History of adenomatous polyp of colon - Z86.010? Overall, Sage appears quite well at the present time. He is not having any new nor worrisome GI symptoms. His anemia seems to be remaining stable at the present time, although it does sound like he does receive periodic iron infusions at his dialysis. We did have another detailed discussion today regarding the appendiceal orifice adenoma. I advised him that I still think it's reasonable to simply observe this rather than put him through any further colonoscopies given his age and medical issues. I still think the benefit of a colonoscopy with further attempts at removing the appendiceal orifice would not outweigh any theoretical risk. I also don't think surgical intervention would be warranted given his age and medical issues as well. As such, I recommended that we continue to simply observe things. I will plan to see him in the spring for a followup visit but did advise him to contact me prior to that if he is having any problems or questions I can be of assistance with. Sage was very comfortable with this plan. Thank you again for allowing me to in Sage's care. I shall continue to keep you advised of his progress. Plan: * Treatment: * Procedure Codes:?1036F TOBAC CO [id number] BP SCR NOT PRFRM REC REASON NOS * Preventive Medicine:? ??Counseling:?Care goal follow-up plan:?Above Normal BMI Follow-up?Giving encouragement to exercise,?BMI management provided?Yes.? * Follow Up:?Spring 2023 * * Sign off status: Completed true * Provider:?Deven Mccallum MD Date:? 023 Generated for Keiko shelley/Gaurav/eTransmitting on:?07/01/2024 03:01 PM EDT History and Physical Notes * HPI (History of Present Illness) Category Sub-Category Detail Notes Category Not es incontinence I saw Sage in followup today in regard to his underlying history of anemia, heme-positive stool, and a known appendiceal adenoma. Since I last saw Sage in the Spring he reports that he has been feeling well. He continues on his hemodialysis 3 times a week. He enjoys a good appetite, without any significant heartburn or dysphagia. He reports his bowel movements have been regular and without any signs of bleeding. He denies any abdominal pain, jaundice, nor weight loss. Laboratories from January 17 revealed a hemoglobin of 11.3. Labs in December revealed an Iron of 169. Examination Category Sub-Category Detail Notes Category Not [...]
--- OUTSIDE RECORDS SUMMARY | 2024-07-01 15:01 | XMS_ITS ---
Author Organization [facility] Address [address] [place] [phone] Care Team Providers Care Reliner Name Role Phone Edwar Trujillo MD Primary Care Provider Unavailab Deven Brady Unavailable [phone] Allergies Allergen (clinical drug ingredient) Drug/Non Drug Allergy documented on EMR Reaction Allergy Type Onset Date Status lisinopril Lisinopril Unknown Drug Allergy Activ e cephalexin Cephalexin Unknown Drug Allergy Activ e carvedilol Carvedilol Unknown Drug Allergy Activ e Medications Medication SIG (Take, Route, Frequency, Duration) [...] 1 tablet Orally Once a day Active Social History Alcohol Screen Question Answer Notes Did you have a drink containing alcohol in the p ast year? No Points 0 Interpretation Negative Section Notes: Nonsmoker; no sig alcohol Vital Signs Blood pressure systolic 00 mm Hg 07/31/19 24 Blood pressure diastolic 00 mm Hg 024 Height 67 in 07/31/2023 Weight 160 lbs 07/31/2023 BMI 25.06 kg/m2 07/31/2023 Encounters Encounter Location Date Provider Diagnosis [facility] [address] [place] [phone] 07/31/2023 Deven Mccallum Heme + stool R19.5 [...] keep you advised of his progress. 07/31/2023 History of adenomatous polyp of colon [...] Of Treatment Next Appt Details Follow Up: 2023, Sowmya n: Progress Notes * FATOU TENORIO NDOB:1940 (82 yo M)Acc No.[id number]:07/31/2023 Progress Notes Patient:?FATOU TENORIO Provider:?Deven Mccallum MD :1940???Age:82 Y???Sex:Male Nino e:07/31/2023 Address:[address] [place] [id number] Pcp:Edwar Trujillo MD Subjective: * Chief Complaints: * ??? * HPI: ???incontinence:? I saw Sage in followup today in regard to his known appendiceal adenoma and history of anemia. ?Since I last saw Sage in January of 2023 he reports he has been feeling well. He continues on his hemodialysis 3 times a week. He describes that has helped him greatly in regard to keeping off the excess fluid and helping him feel better in general. He enjoys a good appetite, without any significant heartburn or dysphagia. He denies abdominal pain nor jaundice. His weight has been stable. He denies any particular change in bowel habits, melena, nor hematochezia. ?His previous anemia has remained stable with a hemoglobin of 11.0 on July 17. He describes that he has not needed any blood transfusions. * ROS:?General/Constitutional:?Change in appetite?denies.?Chills?denies.?Fatigue?denies.?Ophthalmologic:?Patient denies? Negative..?ENT:?Patient denies?Negative..?Respiratory:?Patient denies?No coughing/hemoptysis..?Cardiovascular:?Patient denies? No chest pain/orthopnea..?Gastrointestinal:?Comments?See HPI for details.?Genitourinary:?Patient denies? No dysuria/hematuria..?Musculoskeletal:?Patient denies? No specific arthralgias/myalgias..?Skin:?Patient denies?No rash/pruritus..?Neurologic:?Patient denies? No headaches/seizures..?Psychiatric:?Patient denies?Negative..? * Medical History:? * Surgical History:?Broken jaw Pacemaker 02/24/14Right shoulder cyst removal- Dr. Mireles 11/04/2019AV Fistula x [address] Moe 04/2020- 05/2020 * Hospitalization/Major Diagno stic Procedure:?No Hospitalization History. [...] 40 mg 1 tab Oral once a dayCoreg 6.25 MG Tablet 1 tablet [...] mg 1 tab Oral once a dayTaking Coreg 6.25 MG Tablet 1 tablet with food Orally Twice a dayTaking Collagen Fenestrated (Porcine) Taking Ensure - Liquid as directed Orally DiscontinuedFurosemide 80 MG Tablet Oral Medication List reviewed and reconciled with the patientDiscontinued Furosemide 80 MG Tablet Oral Medication List reviewed and reconciled with the patient * Allergies:?LisinoprilCarvedi lolCephalexinyes[Allergies Verified] Objective: * Vitals:?Wt: 160 lbs, Ht: 67 in, BMI:25.06 Index, BP: 00/00 mm Hg. * Examination: ???General Examination: ?GENERAL APPEARANCE:?pleasant, well nourished, well developed, in no acute distress.?EYES:?sclera non-icteric.?ORAL CAVITY:?mucosa moist.?NECK/THYROID:?no cervical lymphadenopathy, neck supple.?SKIN:?nonjaundiced, no spider angiomata..?HEART:?S1, S2 normal.?LUNGS:?clear to auscultation bilaterally.?ABDOMEN:?normal bowel sounds, no guarding or rigidity, no hepatosplenomegaly, no masses palpable, soft, nontender, nondistended..?EXTREMITIES:?no edema.?NEUROLOGIC:?alert and oriented.? Assessment: * Assessment: 1.?Anemia, unspecified type - D64.9 (Primary)?2.?Heme + stool - R19.5?3.?History of adenomatous polyp of colon - Z86.010? Overall, Sage appears quite well and is [...] * Treatment: * Procedure Codes:?1036F TOBAC CO [id number] BP SCR NOT PRFRM REC REASON NOS * Preventive Medicine:? ??Counseling:?Care goal follow-up plan:?Above Normal BMI Follow-up?Giving encouragement to exercise,?BMI management provided?Yes.? * Follow Up:?2023 * * Sign off status: Completed true * Provider:?Deven Mccallum MD Date:? 024 Generated for Keiko shelley/Gaurav/eTransmitting on:?07/01/2024 03:00 PM EDT History and Physical Notes * HPI (History of Present Illness) Category Sub-Category Detail Notes Category Not es incontinence I saw Sage in followup today in regard to his known appendiceal adenoma and history of anemia. Since I last saw Sage in January of 2023 he reports he has been feeling well. He continues on his hemodialysis 3 times a week. He describes that has helped him greatly in regard to keeping off the excess fluid and helping him feel better in general. He enjoys a good appetite, without any significant heartburn or dysphagia. He denies abdominal pain nor jaundice. His weight has been stable. He denies any particular change in bowel habits, melena, nor hematochezia. His previous anemia has remained stable with a hemoglobin of 11.0 on July 17. He describes that he has not needed any blood transfusions. Examination Category Sub-Category Detail Notes Category Not [...]
== END 2024-07-01 13:04 | disposition home or self-care (01) ==
LOC: HO.HVS 12:50
PROVIDERS: PCP Family Medicine; Visit Provider Physician Assistant Surgical
DX: N18.6 End stage renal disease (principal); Z99.2 Dependence on renal dialysis
CPT/HCPCS: 99213

== ENCOUNTER → 2024-07-01 12:49 | Outpatient (BNVA) | payer MEDICARE, SELFPAY | PROVIDERS: PCP Family Medicine; Visit Provider Physician Assistant Surgical | DX: N18.6 End stage renal disease (principal); Z99.2 Dependence on renal dialysis | CPT/HCPCS: 99212 ==

== ENCOUNTER → 2024-08-13 23:59 | Outpatient (BNV) | payer MEDICARE, SELFPAY ==
--- NOTE | 2024-08-17 08:50 | A.OFFVIS_ITS ---
Intake Visit Reasons: Remote device check- [facility] Allergies cephalexin [From KEFLEX] Allergy (Severe, Verified 04/01/24 13:16) ANGIO EDEMA lisinopril [LISINOPRIL] Allergy (Severe, Verified 04/01/24 13:16) FACIAL EDEMA simvastatin Allergy (Severe, Verified 04/01/24 13:16) renal insufficiency amlodipine Allergy (Mild, Verified 04/01/24 13:16) renal insuff in combo w/ statin rx PFSH Medical History Avascular necrosis of bone of right hip Presence of arterial-venous shunt (for dialysis) History of transfusion of packed red blood cells ESRD (end stage renal disease) on dialysis Normally functioning cardiac pacemaker present Essential hypertension Valvular heart disease Chronic heart failure with preserved ejection fraction (HFpEF) Pulmonary hypertension Arthritis Anemia NAVA (dyspnea on exertion) Rhabdomyolysis due to statin therapy Chronic kidney disease Diabetes Atherosclerotic cardiovascular disease Aortic valvular disease Pacemaker CHF (congestive heart failure) HTN (hypertension) Surgical History 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, 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) History of cardiac catheterization (~08/2020) History of tonsillectomy Status cardiac pacemaker S/P excision of lipoma Hx of colonoscopy Family History Father Stroke Mother Stroke Diabetes Social History Household Members: Spouse Housing: Apartment Are you a primary day care supervisor to a significant other at home: No Do you presently have visiting nurse or other home services: Yes (elder services, meals on wheels) Alcohol intake: current Alcohol intake frequency: former alcohol drinker Alcohol type: hard liquor Patient Tobacco Use Status: Never used Tobacco Advance Directives Date on File: 04/26/20 service: Yes Current occupational status: retired Current occupation: rt handed Office Procedures Cardiac Device Check Cardiac Device Check Details: Date of service- 08/13/2024 ; Battery life 4.7months; normal lead parameters; AP 6%; 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 Overall normal device function. [id number] Cardiac Device Interrogation, pacemaker Procedure code (CPT) selection complete Assessment & Plan Assessment & Plan (1) Normally functioning cardiac pacemaker present: Code(s): Z95.0 - Presence of cardiac pacemaker Category: Medical (2) Heart block: Code(s): I45.9 - Conduction disorder, unspecified Category: Medical Plan x Coding Level of Care Code Procedure Only Diagnoses Normally functioning cardiac pacemaker present Z95.0 Heart block I45.9 CPT Codes Cardiac Device Check - Cardiac Device 12: [id number] Cardiac Device Interrogation, pacemaker ([id number])
== END ==
PROVIDERS: PCP Family Medicine; Visit Provider Internal Medicine
DX: I45.9 Conduction disorder, unspecified (principal); Z95.0 Presence of cardiac pacemaker
CPT/HCPCS: 93294

== ENCOUNTER → 2024-10-28 08:34 | Outpatient (REF) | payer MEDICARE, SELFPAY ==
--- OUTSIDE RECORDS SUMMARY | 2023-11-15 10:39 | XMS_ITS | Continuity of Care Document ---
Author Name [facility] Organization [facility] Care Team Providers Care Vamp Maker Name Role Phone [facility] Unavailable Unavailable Encounters Combined list of: 1) Encounters from Department of Veterans Affairs facilities going backup to the last 18 months, not all VA inpatient encounters are included; 2) Encounters from the Department of [employer] facilities going backup to 280 months. Location Location Details Encounter Type Encounter Number Reason For Visit Attending Provider ADM Date DC Date Status Disposition Source [place] [facility] Outpatient Encounter [id number] 11/14 [place] [facility] WSLIBRADO [facility]
--- NOTE | 2024-10-28 08:37 | CA_ITS ---
Transthoracic Echocardiogram Patient (Last, First, Middle): George Levy N Gender: Male Date of : 1940 Age: 84 Procedure Date: 10/28/2024 Procedure Type: Transthoracic Echocardiogram Location: OP Height: 165.1 cm Weight: 72.58 kg BSA: 1.80 m2 Heart Rate: 54 bpm BP: 120 / 58 mmHg Hay Chopper: SB Referring MD: Pro Alexander MD Symptoms: I35.9 - Nonrheumatic aortic valve disorder, unspecified Study Quality: Fair ECG Rhythm: Sinus bradycardia Conclusions: - The left ventricular systolic function is mildly decreased. The visually estimated ejection fraction is between 45-50%. - The basal inferior and basal inferolateral segments are akinetic. - There is moderate calcification of the aortic valve. There is mild to moderate aortic valve stenosis. Findings Left Ventricle Normal left ventricular cavity size. The left ventricular systolic function is mildly decreased. The visually estimated ejection fraction is between 45 50%. Evidence suggests grade I (mild) diastolic dysfunction. There is mild septal asymmetric hypertrophy. Wall Motion Rest Echo Findings The basal inferior and basal inferolateral segments are akinetic. Right Ventricle Mildly increased right ventricular cavity size. There is normal right ventricular systolic function. Atria Both atria are normal in size. Aortic Valve There is moderate calcification of the aortic valve. There is mild to moderate aortic valve stenosis. Trace to mild aortic regurgitation. Mitral Valve The mitral valve appears normal. There is mild mitral annular calcification. There is trace mitral valve regurgitation. There is no mitral valve stenosis. Pulmonic Valve The pulmonic valve is likely normal. Tricuspid Valve There is mild tricuspid valve regurgitation. There is no evidence of pulmonary hypertension. Great Vessels The asc aorta is normal in size. Small plaque is seen in the sino tubular ridge. Venous The inferior vena cava is normal in size and collapses greater than 50% with inspiration. Pericardium/Pleural There is no evidence of pericardial effusion. Prior Study Comparison No significant change compared to prior study dated: 09/18/2023. Measurements 2D Linear Measurements IVSd: 1.16 0.6-0.9/0.6-1.0 cm LVIDd: 5.11 3.9-5.3/4.2-5.9 cm LVIDd Index: 2.84 2.4-3.2/2.2-3.1 cm/m2 LVIDs: 3.92 2.0-3.6 cm LVPWd: 0.61 0.7-1.1 cm LA Diam: 4.00 2.7-3.8/3.0-4.0 cm LAIDs Index: 2.22 1.5-2.3 cm/m2 LV Mass: 199.33 67-162/88-224 g LV Mass Index: 110.74 43-95/49-115 g/m2 LVOT Diam: 2.10 3.0+(-)1.3 cm 2D Systolic Function EF 4C: 52.80 >55% EF 2C: 59.90 >55% EF BiP: 55.50 >55% Mitral Valve MV Pk E: 0.71 MV PK A: 0.92 MV Decel Time: 244.00 E/A: 0.80 E'Lateral: 4.79 E'Medial: 4.13 E/E' Med: 17.20 E/E' Lat: 14.80 PHT: 72.00 MVA PHT: 3.06 Decel [place]: 2.91 Aortic Valve AoV Pk [place]: 2.33 AoV Mn [place]: 1.65 AoV VTI: 0.57 AoV Pk Grad: 22.00 Aov Mn Grad: 12.00 KARLA Cont.VTI: 1.26 AI Pk [place]: 3.99 AI [place]: 2.26 LVOT LVOT Pk [place]: 0.84 LVOT Mn [place]: 0.59 LVOT VTI: 0.21 LVOT Pk Grad: 3.00 LVOT Mn Grad: 2.00 LVOT Diam: 2.10 LVOT Area: 3.46 Diastolic Function MV Pk E: 0.71 MV Pk A: 0.92 E/A: 0.80 E'Medial: 4.13 E/E' Med: 17.20 E' Laterial: 4.79 E/E' Lat: 14.80 Right Ventricle TAPSE (mm): 23.80 TVS' [place]: 11.60 Tricuspid Valve TR Pk [place]: 2.40 TR Pk Grad: 23.00 RA Press: 3.00 RVSP: 26.00 Great Vessels Aorta Sinus of Valsalva: 2.80 2.0-3.5 cm Ao Asc: 3.20 2.1-3.4 cm Pulmonary Veins Pulm Vein S/D 1.10 Pulmonary Valve PV Pk [place]: 0.63 Peak PV Grad: 2.00 Updated in Other Vendor System with Status of Final Pro Alexander MD electronically signed on 10/30/2024 10:44:15 AM with status of Final
--- OUTSIDE RECORDS SUMMARY | 2024-10-28 08:40 | XMS_ITS | Patient Health Record ---
Author Organization [facility] Address [address] [place] [id number] Care Team Providers Care Hide Buyer Name Role Phone Ronnie (RETIRED) Edwar OVALLE Primary Care Provider Unavailable Deven Mccallum Unavailable [phone] Allergies Allergen (clinical drug ingredient) Drug/Non Drug [...] W/U Status Risk Notes Problem Screening colonoscopy (116114590) Encounter for screening colonoscopy (Z12.11) Active confirmed Problem 869255825 Encounter for screening for malignant neoplasm of colon (Z12.11) Active confirmed Problem 679179349 History of adenomatous polyp of colon (Z86.010) Active confirmed Problem Polyp of colon (disorder) (91808260) Colon polyps (K63.5) Active confirmed Problem Tubular adenoma of colon (675801639) Tubular adenoma of colon (D12.6) Active confirmed Problem 80302081 Heme + stool (R19.5) Active confirmed Problem History of polyp of colon (situation) (481648715) Hx of colonic polyps (Z86.010) Active confirmed Problem Anemia (033065864) Anemia (D64.9) Active confirmed Problem Gallstones (613426361) Gallstones (K80.20) Active confirmed Problem 008276214 Long-term use of aspirin therapy (Z79.82) Active confirmed Problem 582296222 Anemia, unspecified type (D64.9) Active confirmed Problem 435519717 Adenoma of transverse colon (D12.3) Active confirmed Problem 82548919 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 Vital Signs Blood pressure diastolic 00 mm Hg 02/26/2024 Height 5 ft 5 in in 02/26/2024 Blood pressure systolic 00 mm Hg 02/26/2024 Weight 148 lbs 02/26/2024 BMI 24.63 kg/m2 02/26/2024 Encounters Encounter Location Date Provider Diagnosis [facility] [address] [place] [phone] 02/26/2024 Deven Mccallum Anemia, unspecified type D64.9 [...] Start Date Coverage End Date MEDICARE OF [facility] [address] [place] [address] [id number] JONA FATOU Self - patient is the insured Medical (General) History Medical History History ICD Code Colonoscopy in 2002 with the removal of 2 tubular adenomas Colonoscopy 02/11/2008--1 tubular adenom a removed HTN Hyperlipidemia Hospitalized end of 06/13/13 with fluid retention, elevated CPK, and some renal insufficiency--due to Simvastatin and Amlodipine--he was treated and improved--he did not have a MN Denies MN,DM,CVA,Lung disease Pacemaker 02/24/2014 Colonoscopy in 08/2013--tubul ar [...]
--- OUTSIDE RECORDS SUMMARY | 2024-10-28 08:40 | XMS_ITS | Encounter Summary ---
Author Organization [facility] Address [address] [facility] [address] [facility] [address] [place] [address] Phone Care Team Providers Care Pathology Collector Name Role Phone Edwar Trujillo MD Primary Care Provider [phone] Encounter Details Date Type Department Care Team (Late st Contact Info) Description 06/04/2020 Orders Only [facility] [address] [place] [id number] Neal Burgess MD Stage 5 chronic kidney [...] failure documented in this encounter Care Teams Pathology Collector Relationship Specialty Start Date End Date Edwar Trujillo MD [address] [place] [address] [address] PCP - General 04/26/20 documented as of this encounter
== END ==
LOC: HO.CARD 08:34
PROVIDERS: PCP Family Medicine; Visit Provider Internal Medicine
DX: I35.9 Nonrheumatic aortic valve disorder, unspecified (principal)
CPT/HCPCS: 93306

== ENCOUNTER → 2024-10-28 08:37 | Outpatient (BNV) | payer MEDICARE, SELFPAY | PROVIDERS: PCP Family Medicine; Visit Provider Internal Medicine | DX: I42.2 Other hypertrophic cardiomyopathy (principal); I35.2 Nonrheumatic aortic (valve) stenosis with insufficiency; I34.81 Nonrheumatic mitral (valve) annulus calcification; I36.1 Nonrheumatic tricuspid (valve) insufficiency | CPT/HCPCS: 93306 ==

== ENCOUNTER 2024-11-11 12:37 | Outpatient (AMB) | payer MEDICARE, SELFPAY ==
--- OUTSIDE RECORDS SUMMARY | 2023-11-15 10:39 | XMS_ITS | Continuity of Care Document ---
Author Name [facility] Organization [facility] Care Team Providers Care Boiler Fitter Name Role Phone [facility] Unavailable Unavailable Encounters Combined list of: 1) Encounters from Department of Veterans Affairs facilities going backup to the last 18 months, not all VA inpatient encounters are included; 2) Encounters from the Department of [employer] facilities going backup to 280 months. Location Location Details Encounter Type Encounter Number Reason For Visit Attending Provider ADM Date DC Date Status Disposition Source [place] [facility] Outpatient Encounter [id number] 11/14 [place] [facility]
[2024-11-11 13:21] VITALS: BP 120/60; PULSE 62; BMI 26.8
--- NOTE | 2024-11-11 13:21 | A.OFFVIS_ITS ---
Vital Signs 11/11/24 13:21 Height 5 ft 5 in Weight 160 lb 14.999 oz BMI 26.8 BP 120/60 Blood Pressure Location Lt brachial Position Sitting Pulse 62 Pulse Source Monitor Intake Visit Reasons: 6m follow up Allergies cephalexin (From KEFLEX) Allergy (Severe, Verified 04/01/24 13:16) ANGIO EDEMA lisinopril (LISINOPRIL) Allergy (Severe, Verified 04/01/24 13:16) FACIAL EDEMA simvastatin Allergy (Severe, Verified 04/01/24 13:16) renal insufficiency amlodipine Allergy (Mild, Verified 04/01/24 13:16) renal insuff in combo w/ statin rx Medication List - Last Reconciled 11/11/24 by Pro Alexander MD acetaminophen 650 mg (2 x 325 mg) PO Q6H PRN 30 days aspirin (Adult Aspirin Regimen) 81 mg PO DAILY atorvastatin 10 mg PO BEDTIME blood sugar diagnostic As directed carvedilol 6.25 mg PO BID lancets As directed multivitamin 1 tab PO DAILY walker Folding Front wheeled walker HPI Comments Details: George returns for follow-up regarding his cardiac issues including mild cardiomyopathy and coronary disease, pacemaker. Overall, he states he is feeling good. No cardiac symptoms whatsoever. [facility] Medical History (Updated 11/11/24 @ 14:02 by Pro Alexander MD) Avascular necrosis of bone of right hip Presence of arterial-venous shunt (for dialysis) History of transfusion of packed red blood cells ESRD (end stage renal disease) on dialysis Normally functioning cardiac pacemaker present Essential hypertension Valvular heart disease Chronic heart failure with preserved ejection fraction (HFpEF) Pulmonary hypertension Arthritis Anemia NAVA (dyspnea on exertion) Rhabdomyolysis due to statin therapy Chronic kidney disease Diabetes Atherosclerotic cardiovascular disease Aortic valvular disease Pacemaker CHF (congestive heart failure) HTN (hypertension) Surgical History 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, 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) History of cardiac catheterization (~08/2020) History of tonsillectomy Status cardiac pacemaker S/P excision of lipoma Hx of colonoscopy Family History Father Stroke Mother Stroke Diabetes Social History Household Members: Spouse Housing: Apartment Are you a primary pharmacy care coordinator to a significant other at home: No Do you presently have visiting nurse or other home services: Yes (elder services, meals on wheels) Alcohol intake: current Alcohol intake frequency: former alcohol drinker Alcohol type: hard liquor Patient Tobacco Use Status: Never used Tobacco Advance Directives Date on File: 04/26/20 service: Yes Current occupational status: retired Current occupation: rt handed Review of Systems Const Denies weakness ENT Denies dizziness Card Denies chest pain, Denies chest pain with activity, Denies syncope, Denies rapid heart rate, Denies pedal edema, Denies edema, Denies leg edema, Denies lightheadedness, Denies palpitations, Denies dyspnea, Denies dyspnea on exertion and Denies orthopnea Resp Denies cough, Denies dyspnea and Denies dyspnea on exertion GI Denies hematochezia and Denies change in stool character Musc Denies abnormal gait, Denies muscle cramps, Denies muscle weakness, Denies numbness, Denies radiating pain into limb and Denies tingling Neuro Denies abnormal gait, Denies dizziness, Denies syncope, Denies numbness, Denies tingling and Denies weakness Endo Denies palpitations Physical Exam Vital Signs: Last Vital Signs Pulse 62 11/11/24 13:21 BP 120/60 11/11/24 13:21 BMI result Body Mass Index 26.8 Const General: comfortable and no acute distress Orientation/consciousness: patient oriented x3 HEENT Other: Unremarkable Head: Yes normal to inspection Neck Neck: Yes normal visual inspection Chest Chest palpation & inspection: normal inspection of the chest Resp Auscultation: clear to auscultation bilaterally Cardio Palpation: normal PMI Heart sounds: S1 normal heart sound present, S2 normal heart sound present, no gallops, no murmurs and no rubs GI Palpation (GI): Soft to palpation Back/Spine/Pelvis Other: unremarkable Skin General skin exam: no rashes or lesions noted Neuro General: patient oriented x3 Extrem General: Yes normal to inspection Psych Mental Status: mental status grossly normal Assessment & Plan Assessment & Plan (1) Cardiomyopathy: Code(s): I42.9 - Cardiomyopathy, unspecified Category: Medical Plan: In the last echocardiogram, LVEF is 45-50%. Inferior wall motion abnormalities. Overall, unchanged from prior. Clinically, he does not have any symptoms or signs of congestive heart failure. No significant coronary disease to explain the cardiomyopathy. He remains on a small dose of carvedilol and losartan. No changes. (2) Atherosclerotic cardiovascular disease: Code(s): I25.10 - Atherosclerotic heart disease of poarch coronary artery without angina pectoris Category: Medical Plan: Cardiac catheterization - ostial disease in the acute marginal branch but otherwise normal coronary arteries. Remains on aspirin. (3) Aortic valvular disease: Code(s): I35.9 - Nonrheumatic aortic valve disorder, unspecified Category: Medical Plan: Echocardiogram with moderate aortic valve calcification [id number] aortic stenosis. We will follow this on echocardiogram. (4) Essential hypertension: Code(s): I10 - Essential (primary) hypertension Category: Medical Plan: Stable. No changes. (5) Other and unspecified hyperlipidemia: Code(s): E78.5 - Hyperlipidemia, unspecified Category: Medical Plan: Last available LDL 40 mg/dL. In the past, he had rhabdomyolysis with simvastatin combined with amlodipine. Currently off amlodipine and on Lipitor. May recheck with routine PCP labs. (6) ESRD (end stage renal disease) on dialysis: Comment: 05/24/2020 - left upper extremity brachiocephalic fistula creation Code(s): N18.6 - End stage renal disease; Z99.2 - Dependence on renal dialysis Category: Medical Plan: On hemodialysis. (7) Pacemaker: Code(s): Z95.0 - Presence of cardiac pacemaker Category: Medical Plan: Per last transmission in July, approaching [facility]. We will follow this on remote monitoring. Plan Discussion Notes I discussed with the patient the importance of regular dialysis sessions and the need to monitor the pacemaker battery closely. We reviewed the timeline for the battery replacement and agreed on the necessity of follow-up appointments to ensure timely intervention. Patient was informed and verbally consented to the use of an ambient scribe for clinic note documentation during this visit. Patient Instructions: - Continue attending regular dialysis sessions as scheduled. - Monitor for any cardiac symptoms and report them immediately. - Attend follow-up appointments to reassess pacemaker battery status. Coding Level of Care Code Est Pt Level 4 (75316) Complex EM visit Add On G2211 Diagnoses Cardiomyopathy I42.9 Atherosclerotic cardiovascular disease I25.10 Aortic valvular disease I35.9 Essential hypertension I10 Other and unspecified hyperlipidemia E78.5 ESRD (end stage renal disease) on dialysis N18.6; Z99.2 Pacemaker Z95.0
--- OUTSIDE RECORDS SUMMARY | 2024-11-11 13:23 | XMS_ITS | Patient Health Record ---
Author Organization [facility] Address [address] [place] [phone] Care Team Providers Care Senior Planning Manager Name Role Phone Ronnie (RETIRED) Edwar OVALLE Primary Care Provider Unavailable Deven Mccallum Unavailable [phone] Allergies Allergen (clinical drug ingredient) Drug/Non Drug [...] W/U Status Risk Notes Problem Screening colonoscopy (168128254) Encounter for screening colonoscopy (Z12.11) Active confirmed Problem 238173886 Encounter for screening for malignant neoplasm of colon (Z12.11) Active confirmed Problem 015494590 History of adenomatous polyp of colon (Z86.010) Active confirmed Problem Polyp of colon (disorder) (20797708) Colon polyps (K63.5) Active confirmed Problem Tubular adenoma of colon (269697492) Tubular adenoma of colon (D12.6) Active confirmed Problem 18331375 Heme + stool (R19.5) Active confirmed Problem History of polyp of colon (situation) (067914549) Hx of colonic polyps (Z86.010) Active confirmed Problem Anemia (471136654) Anemia (D64.9) Active confirmed Problem Gallstones (705616976) Gallstones (K80.20) Active confirmed Problem 349653419 Long-term use of aspirin therapy (Z79.82) Active confirmed Problem 909722906 Anemia, unspecified type (D64.9) Active confirmed Problem 846525207 Adenoma of transverse colon (D12.3) Active confirmed Problem 48596031 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 Vital Signs Blood pressure diastolic 00 mm Hg 02/26/2024 Height 5 ft 5 in in 02/26/2024 Blood pressure systolic 00 mm Hg 02/26/2024 Weight 148 lbs 02/26/2024 BMI 24.63 kg/m2 02/26/2024 Encounters Encounter Location Date Provider Diagnosis [facility] [address] [place] [phone] 02/26/2024 Deven Mccallum Anemia, unspecified type D64.9 [...] Start Date Coverage End Date MEDICARE OF [facility] [address] [place] [address] [phone] [id number] JONA FATOU Self - patient is the insured Medical (General) History Medical History History ICD Code Colonoscopy in 2002 with the removal of 2 tubular adenomas Colonoscopy 02/11/2008--1 tubular adenom a removed HTN Hyperlipidemia Hospitalized end of 06/13/13 with fluid retention, elevated CPK, and some renal insufficiency--due to Simvastatin and Amlodipine--he was treated and improved--he did not have a MT Denies MT,DM,CVA,Lung disease Pacemaker 02/24/2014 Colonoscopy in 08/2013--tubul ar [...]
--- OUTSIDE RECORDS SUMMARY | 2024-11-11 13:23 | XMS_ITS | Encounter Summary ---
Author Organization [facility] Address [address] [facility] [address] [facility] [address] [place] [address] Phone Care Team Providers Care Last Marker Name Role Phone Edwar Trujillo MD Primary Care Provider [phone] Encounter Details Date Type Department Care Team (Late st Contact Info) Description 06/04/2020 Orders Only [facility] [address] [place] [phone] Neal Burgess MD Stage 5 chronic kidney [...] failure documented in this encounter Care Teams Last Marker Relationship Specialty Start Date End Date Edwar Trujillo MD [address] [place] [address] [address] [place] PCP - General 04/26/20 documented as of this encounter
== END 2024-11-11 13:43 | disposition home or self-care (01) ==
LOC: HO.HCS 12:38
PROVIDERS: PCP Family Medicine; Visit Provider Internal Medicine
DX: I42.9 Cardiomyopathy, unspecified (principal); I25.10 Atherosclerotic heart disease of native coronary artery without angina pectoris; I35.9 Nonrheumatic aortic valve disorder, unspecified; I12.0 Hypertensive chronic kidney disease with stage 5 chronic kidney disease or end stage renal disease; E78.5 Hyperlipidemia, unspecified; N18.6 End stage renal disease; Z99.2 Dependence on renal dialysis; Z95.0 Presence of cardiac pacemaker
CPT/HCPCS: 93010; 99214; G2211

== ENCOUNTER → 2024-11-11 12:37 | Outpatient (BNVA) | payer MEDICARE, SELFPAY | PROVIDERS: PCP Family Medicine; Visit Provider Internal Medicine | DX: I42.9 Cardiomyopathy, unspecified (principal); I25.10 Atherosclerotic heart disease of native coronary artery without angina pectoris; I35.9 Nonrheumatic aortic valve disorder, unspecified; I12.9 Hypertensive chronic kidney disease with stage 1 through stage 4 chronic kidney disease, or unspecified chronic kidney disease; N18.6 End stage renal disease; E78.5 Hyperlipidemia, unspecified; Z99.2 Dependence on renal dialysis; Z95.0 Presence of cardiac pacemaker; Z79.82 Long term (current) use of aspirin; Z79.899 Other long term (current) drug therapy | CPT/HCPCS: 93005; 99212 ==

== ENCOUNTER → 2024-11-12 23:59 | Outpatient (BNV) | payer MEDICARE, SELFPAY ==
--- NOTE | 2024-11-16 09:59 | A.OFFVIS_ITS ---
Intake Visit Reasons: Remote device check- [facility] Allergies cephalexin (From KEFLEX) Allergy (Severe, Verified 04/01/24 13:16) ANGIO EDEMA lisinopril (LISINOPRIL) Allergy (Severe, Verified 04/01/24 13:16) FACIAL EDEMA simvastatin Allergy (Severe, Verified 04/01/24 13:16) renal insufficiency amlodipine Allergy (Mild, Verified 04/01/24 13:16) renal insuff in combo w/ statin [facility] Medical History (Updated 11/11/24 @ 14:02 by Pro Alexander MD) Avascular necrosis of bone of right hip Presence of arterial-venous shunt (for dialysis) History of transfusion of packed red blood cells ESRD (end stage renal disease) on dialysis Normally functioning cardiac pacemaker present Essential hypertension Valvular heart disease Chronic heart failure with preserved ejection fraction (HFpEF) Pulmonary hypertension Arthritis Anemia NAVA (dyspnea on exertion) Rhabdomyolysis due to statin therapy Chronic kidney disease Diabetes Atherosclerotic cardiovascular disease Aortic valvular disease Pacemaker CHF (congestive heart failure) HTN (hypertension) Surgical History 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, 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) History of cardiac catheterization (~08/2020) History of tonsillectomy Status cardiac pacemaker S/P excision of lipoma Hx of colonoscopy Family History Father Stroke Mother Stroke Diabetes Social History Household Members: Spouse Housing: Apartment Are you a primary clinical care coordinator to a significant other at home: No Do you presently have visiting nurse or other home services: Yes (elder services, meals on wheels) Alcohol intake: current Alcohol intake frequency: former alcohol drinker Alcohol type: hard liquor Patient Tobacco Use Status: Never used Tobacco Advance Directives Date on File: 04/26/20 service: Yes Current occupational status: retired Current occupation: rt handed Office Procedures Cardiac Device Check Cardiac Device Check Details: Date of service- ; Battery life <3 months; normal lead parameters; AP 7.2%; [employer] >99%; no significant arrhythmias. Overall normal device function. [id number] Cardiac Device Interrogation, pacemaker Procedure code (CPT) selection complete Assessment & Plan Assessment & Plan (1) Pacemaker: Code(s): Z95.0 - Presence of cardiac pacemaker Category: Medical (2) Heart block: Code(s): I45.9 - Conduction disorder, unspecified Category: Medical Plan x Coding Level of Care Code Procedure Only Diagnoses Pacemaker Z95.0 Heart block I45.9 CPT Codes Cardiac Device Check - Cardiac Device 12: [id number] Cardiac Device Interrogation, pacemaker ([id number])
== END ==
PROVIDERS: PCP Family Medicine; Visit Provider Internal Medicine
DX: I45.9 Conduction disorder, unspecified (principal); Z95.0 Presence of cardiac pacemaker
CPT/HCPCS: 93294

== ENCOUNTER 2024-12-16 14:15 | Outpatient (AMB) | payer MEDICARE, SELFPAY ==
--- OUTSIDE RECORDS SUMMARY | 2023-11-15 10:39 | XMS_ITS | Continuity of Care Document ---
Author Name [facility] Organization [facility] Care Team Providers Care Sales Planning Analyst Name Role Phone [facility] Unavailable Unavailable Encounters Combined list of: 1) Encounters from Department of Veterans Affairs facilities going backup to the last 18 months, not all VA inpatient encounters are included; 2) Encounters from the Department of [employer] facilities going backup to 280 months. Location Location Details Encounter Type Encounter Number Reason For Visit Attending Provider ADM Date DC Date Status Disposition Source [place] [facility] Outpatient Encounter [id number] 11/14 [place] [facility]
--- NOTE | 2024-12-16 14:24 | A.OFFVIS_ITS ---
Vital Signs 12/16/24 14:25 Height 5 ft 5 in Weight 160 lb 14.999 oz BMI 26.8 BP 120/60 Blood Pressure Location Lt brachial Position Sitting Pulse 65 Pulse Source Pulse Oximeter Intake Visit Reasons: 3 month f/up device ck Allergies cephalexin (From KEFLEX) Allergy (Severe, Verified 04/01/24 13:16) ANGIO EDEMA lisinopril (LISINOPRIL) Allergy (Severe, Verified 04/01/24 13:16) FACIAL EDEMA simvastatin Allergy (Severe, Verified 04/01/24 13:16) renal insufficiency amlodipine Allergy (Mild, Verified 04/01/24 13:16) renal insuff in combo w/ statin rx Medication List - Last Reconciled 12/16/24 by Pro Alexander MD acetaminophen 650 mg (2 x 325 mg) PO Q6H PRN 30 days aspirin (Adult Aspirin Regimen) 81 mg PO DAILY atorvastatin 10 mg PO BEDTIME blood sugar diagnostic As directed carvedilol 6.25 mg PO BID lancets As directed multivitamin 1 tab PO DAILY walker Folding Front wheeled walker HPI Comments Details: George returns for follow-up regarding his cardiac issues including mild cardiomyopathy and coronary disease, pacemaker. Overall, he states he is feeling good. No cardiac symptoms whatsoever. [facility] Medical History (Updated 11/11/24 @ 14:02 by Pro Alexander MD) Avascular necrosis of bone of right hip Presence of arterial-venous shunt (for dialysis) History of transfusion of packed red blood cells ESRD (end stage renal disease) on dialysis Normally functioning cardiac pacemaker present Essential hypertension Valvular heart disease Chronic heart failure with preserved ejection fraction (HFpEF) Pulmonary hypertension Arthritis Anemia NAVA (dyspnea on exertion) Rhabdomyolysis due to statin therapy Chronic kidney disease Diabetes Atherosclerotic cardiovascular disease Aortic valvular disease Pacemaker CHF (congestive heart failure) HTN (hypertension) Surgical History 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, 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) History of cardiac catheterization (~08/2020) History of tonsillectomy Status cardiac pacemaker S/P excision of lipoma Hx of colonoscopy Family History Father Stroke Mother Stroke Diabetes Social History Household Members: Spouse Housing: Apartment Are you a primary career technical counselor to a significant other at home: No Do you presently have visiting nurse or other home services: Yes (elder services, meals on wheels) Alcohol intake: current Alcohol intake frequency: former alcohol drinker Alcohol type: hard liquor Patient Tobacco Use Status: Never used Tobacco Advance Directives Date on File: 04/26/20 service: Yes Current occupational status: retired Current occupation: rt handed Review of Systems Const Denies weakness ENT Denies dizziness Card Denies chest pain, Denies chest pain with activity, Denies syncope, Denies rapid heart rate, Denies pedal edema, Denies edema, Denies leg edema, Denies lightheadedness, Denies palpitations, Denies dyspnea, Denies dyspnea on exertion and Denies orthopnea Resp Denies cough, Denies dyspnea and Denies dyspnea on exertion GI Denies hematochezia and Denies change in stool character Musc Denies abnormal gait, Denies muscle cramps, Denies muscle weakness, Denies numbness, Denies radiating pain into limb and Denies tingling Neuro Denies abnormal gait, Denies dizziness, Denies syncope, Denies numbness, Denies tingling and Denies weakness Endo Denies palpitations Physical Exam Vital Signs: Last Vital Signs Pulse 65 12/16/24 14:25 BP 120/60 12/16/24 14:25 BMI result Body Mass Index 26.8 Const General: comfortable and no acute distress Orientation/consciousness: patient oriented x3 HEENT Other: Unremarkable Head: Yes normal to inspection Neck Neck: Yes normal visual inspection Chest Chest palpation & inspection: normal inspection of the chest Resp Auscultation: clear to auscultation bilaterally Cardio Palpation: normal PMI Heart sounds: S1 normal heart sound present, S2 normal heart sound present, no gallops, Murmur heart sound present systolic III/ and no rubs GI Palpation (GI): Soft to palpation Back/Spine/Pelvis Other: unremarkable Skin General skin exam: no rashes or lesions noted Neuro General: patient oriented x3 Extrem General: Yes normal to inspection Psych Mental Status: mental status grossly normal Office Procedures Cardiac Device Check Cardiac Device Check Details: Pacemaker interrogated today. Dual-chamber device, programmed DDDR. Battery status < 3 months. Atrial pacing 10%. Ventricular pacing > 99%. No significant arrhythmias. Overall, normal device function. [id number] Cardiac Device Interrogation, pacemaker Procedure code (CPT) selection complete Assessment & Plan Assessment & Plan (1) Cardiomyopathy: Code(s): I42.9 - Cardiomyopathy, unspecified Category: Medical Plan: In the last echocardiogram, LVEF is 45-50%. Inferior wall motion abnormalities. Overall, unchanged from prior. No significant coronary disease to explain the cardiomyopathy. Remains on carvedilol. Was on losartan in the past but not in his list anymore. (2) Atherosclerotic cardiovascular disease: Code(s): I25.10 - Atherosclerotic heart disease of [place] coronary artery without angina pectoris Category: Medical Plan: Cardiac catheterization - ostial disease in the acute marginal branch but otherwise normal coronary arteries. Remains on aspirin. (3) Aortic valvular disease: Code(s): I35.9 - Nonrheumatic aortic valve disorder, unspecified Category: Medical Plan: Echocardiogram with moderate aortic valve calcification [id number] aortic stenosis. Can be followed periodically. (4) Essential hypertension: Code(s): I10 - Essential (primary) hypertension Category: Medical Plan: Stable. No changes. (5) Other and unspecified hyperlipidemia: Code(s): E78.5 - Hyperlipidemia, unspecified Category: Medical Plan: Last available LDL 40 mg/dL. In the past, he had rhabdomyolysis with simvastatin combined with amlodipine. Currently off amlodipine and on Lipitor. May recheck with routine PCP labs. (6) ESRD (end stage renal disease) on dialysis: Comment: 05/24/2020 - left upper extremity brachiocephalic fistula creation Code(s): N18.6 - End stage renal disease; Z99.2 - Dependence on renal dialysis Category: Medical Plan: On hemodialysis. (7) Pacemaker: Code(s): Z95.0 - Presence of cardiac pacemaker Category: Medical Plan: Approaching ANA ROSA. We will follow this on remote monitoring. Coding Level of Care Code Est Pt Level 4 (16683) Complex EM visit Add On G2211 Diagnoses Cardiomyopathy I42.9 Atherosclerotic cardiovascular disease I25.10 Aortic valvular disease I35.9 Essential hypertension I10 Other and unspecified hyperlipidemia E78.5 ESRD (end stage renal disease) on dialysis N18.6; Z99.2 Pacemaker Z95.0 CPT Codes Cardiac Device Check - Cardiac Device 12: [id number] Cardiac Device Interrogation, pacemaker ([id number])
[2024-12-16 14:25] VITALS: BP 120/60; PULSE 65; BMI 26.8
--- OUTSIDE RECORDS SUMMARY | 2024-12-16 15:29 | XMS_ITS | Clinical Summary ---
Author Organization [facility] Address [address] [facility] [address] [place] [address] Phone Care Team Providers Care Jute Bag Sewer Name Role Phone Edwar Trujillo MD Primary Care Provider [phone] Allergies Active Allergy Reactions Criticality Noted Date [...] Encounters Date Type Department Care Team Description 12/03/2024 Treatment [facility] [address] [phone] Amandeep Gonzalez MD End stage renal disease; Dependence on renal dialysis 11/26/2024 Treatment [facility] [address] [phone] Amandeep Gonzalez MD End stage renal disease; Dependence on renal dialysis 11/19/2024 Treatment [facility] [address] [phone] Amandeep Gonzalez MD End stage renal disease; Dependence on renal dialysis 11/14/2024 Treatment [facility] [address] [phone] Amandeep Gonzalez MD End stage renal disease; Dependence on renal dialysis 11/05/2024 Treatment [facility] [address] [phone] Amandeep Gonzalez MD End stage renal disease; Dependence on renal dialysis 10/29/2024 Treatment [facility] [address] [phone] Amandeep Gonzalez MD End stage renal disease; Dependence on renal dialysis 10/22/2024 Treatment [facility] [address] [place] [phone] Amandeep Gonzalez MD End stage renal disease; Dependence on renal dialysis 10/15/2024 Orders Only [facility] [address] [phone] Amandeep Gonzalez MD 10/15/2024 Treatment [facility] [address] [phone] Amandeep Gonzalez MD End stage renal disease; Dependence on renal dialysis 10/08/2024 Treatment [facility] [address] [phone] Amandeep Gonzalez MD End stage renal disease; Dependence on renal dialysis 10/03/2024 Treatment [facility] [address] [phone] Amandeep Gonzalez MD End stage renal disease; Dependence on renal dialysis 09/24/2024 Treatment [facility] [address] [phone] Amandeep Gonzalez MD End stage renal disease; Dependence on renal dialysis 09/15/2024 Treatment [facility] [address] [phone] Amandeep Gonzalez MD End stage renal disease; Dependence on renal dialysis from Last 3 Months Immunizations Immunization Administration Dates Next Due Pneumococcal Polysaccharide 08/07/2013, [...] Risk Dialysis 4-dose series) 1960 Pneumococcal Vaccine: 50+ Ye ars (3 of 3 - PCV) 01/11/2019 01/11/2018, 08/07/2013, 06/18/2013 Diabetes: Ophthalmology Exam 05/16/2020 Diabetes: Pedal Pulse Checked 05/16/2020 Diabetes: Sensory Foot Exam 05/16/2020 Diabetes: Visual Foot Exam 05/16/2020 Influenza Vaccine (#1) 2024 Diabetes: Hemoglobin A1C 01/15/2025 025, 07/16/2024, 04/23/2024, Additional history exists Pneumococcal Vaccine: Peds ( 0 to 5 Years) and At-Risk Patients (6 to 49 Years) Discontinued 01/11/2018, 08/07/2013, 06/18/2013 Procedures Procedure Name Priority Date/Time Associated Diagnosis Comments HEMOGLOBIN Routine 12/03/2024 3:00 AM EDT FERRITIN Routine 11/19/2024 3:00 AM EDT TRANSFERRIN SATURATION Routine 3:00 AM EDT PROTEIN, TOTAL, SERUM Routine 11/19/2024 3:00 AM EDT ELECTROLYTE PANEL Routine 11/19/2024 3:0 0 AM EDT MAGNESIUM Routine 11/19/2024 3:00 AM EDT LIH (HC) Routine 11/19/2024 3:00 AM EDT LACTATE DEHYDROGENASE Routine 11/19/2024 3:00 AM EDT GLUCOSE, RANDOM Routine 11/19/2024 3:00 AM EDT BUN/CREATININE RATIO Routine 11/19/2024 3:00 AM EDT CREATININE, SERUM Routine 11/19/2024 3:0 0 AM EDT AST Routine 11/19/2024 3:00 AM EDT BILIRUBIN, TOTAL Routine 11/19/2024 3:00 AM EDT CALCIUM PHOSPHORUS PRODUCT, ADJUSTED (HC) Routine 11/19/2024 3:00 AM EDT ALT Routine 11/19/2024 3:00 AM EDT ALKALINE PHOSPHATASE Routine 11/19/2024 3:00 AM EDT KT/V NATURAL LOG, URR (HC) Routine 11/19/2024 3:00 AM EDT CBC AND DIFFERENTIAL Routine 11/19/2024 3:00 AM EDT HEMOGLOBIN Routine 11/05/2024 3:00 AM EDT HEMOGLOBIN Routine 10/29/2024 3:00 AM EDT VITAMIN D 25 HYDROXY Routine 10/22/2024 3:00 AM EDT HEPATITIS B SURFACE ANTIGEN W/REFL CONFIRM Routine 10/15/2024 3:00 AM EDT TRANSFERRIN SATURATION Routine 3:00 AM EDT PROTEIN, TOTAL, SERUM Routine 10/15/2024 3:00 AM EDT MAGNESIUM Routine 10/15/2024 3:00 AM EDT LIPID PANEL Routine 10/15/2024 3:00 AM EDT LACTATE DEHYDROGENASE Routine 10/15/2024 3:00 AM EDT ELECTROLYTE PANEL Routine 10/15/2024 3:0 0 AM EDT LIH (HC) Routine 10/15/2024 3:00 AM EDT GLUCOSE, RANDOM Routine 10/15/2024 3:00 AM EDT BUN/CREATININE RATIO Routine 10/15/2024 3:00 AM EDT CREATININE, SERUM Routine 10/15/2024 3:0 0 AM EDT BILIRUBIN, TOTAL Routine 10/15/2024 3:00 AM EDT AST Routine 10/15/2024 3:00 AM EDT ALT Routine 10/15/2024 3:00 AM EDT CALCIUM PHOSPHORUS PRODUCT, ADJUSTED (HC) Routine 10/15/2024 3:00 AM EDT ALKALINE PHOSPHATASE Routine 10/15/2024 3:00 AM EDT PTH, INTACT Routine 10/15/2024 3:00 AM EDT FERRITIN Routine 10/15/2024 3:00 AM EDT HEMOGLOBIN A1C Routine 10/15/2024 3:00 AM EDT KT/V NATURAL LOG, URR (HC) Routine 10/15/2024 3:00 AM EDT CBC AND DIFFERENTIAL Routine 10/15/2024 3:00 AM EDT HEMOGLOBIN Routine 10/01/2024 3:00 AM EDT KT/V NATURAL LOG, URR (HC) Routine 09/17/2024 3:00 AM EDT TRANSFERRIN SATURATION Routine 3:00 AM EDT PROTEIN, TOTAL, SERUM Routine 09/17/2024 3:00 AM EDT LIH (HC) Routine 09/17/2024 3:00 AM EDT ELECTROLYTE PANEL Routine 09/17/2024 3:0 0 AM EDT MAGNESIUM Routine 09/17/2024 3:00 AM EDT LACTATE DEHYDROGENASE Routine 09/17/2024 3:00 AM EDT CREATININE, SERUM Routine 09/17/2024 3:0 0 AM EDT GLUCOSE, RANDOM Routine 09/17/2024 3:00 AM EDT BUN/CREATININE RATIO Routine 09/17/2024 3:00 AM EDT BILIRUBIN, TOTAL Routine 09/17/2024 3:00 AM EDT AST Routine 09/17/2024 3:00 AM EDT ALT Routine 09/17/2024 3:00 AM EDT ALKALINE PHOSPHATASE Routine 09/17/2024 3:00 AM EDT CALCIUM PHOSPHORUS PRODUCT, ADJUSTED (HC) Routine 09/17/2024 3:00 AM EDT FERRITIN Routine 09/17/2024 3:00 AM EDT CBC AND DIFFERENTIAL Routine 09/17/2024 3:00 AM EDT from Last 3 Months Results * (ABNORMAL) Hemoglobin (12/03/2024 3:00 AM EDT) Only the most recent of4 resultswithin the time period is included. Hgb 10.6(L) 13.7 - 17.5 g/dL [facility] Hemoglobin x 3 31.8(L) 41.1 - 52.5 g/dL [facility] 12/03/2024 3:00 AM EDT 12/04/2024 1:17 PM EDT us Amandeep Gonzalez MD LAB BLOOD ORDERABLES Final Resu lt Performing Organization Address [facility]/ZIP Co de Phone Number APS [facility] [address] [place] [address] * LIH (11/19/2024 3:00 AM EDT) Only the most recent of3 resultswithin the time period is included. Pathologist [facility] Lipemia Normal Normal [facility] Icterus Normal Normal [facility] Hemolysis Normal Normal [facility] 11/19/2024 3:00 AM EDT 11/21/2024 3:43 PM EDT us Amandeep Gonzalez MD LAB [id number] LICITED RESULTS Final Result Performing Organization Address City/[facility] Co de Phone Number [facility] [address] [place] [address] * (ABNORMAL) Kt/V Natural Log, URR (11/19/2024 3:00 AM EDT) Only the most recent of3 resultswithin the time period is included. Pathologist [facility] Treatment Time 196 min [facility] Pre-Weight, lb 75.0 kg [facility] Post-Weight, lb 71.9 kg [facility] Ultrafiltration Rate 13 <=13 mL/kg/hr [facility] Comment: Recommend achieving Ultrafiltration Rate (UFR) <=10 mL/kg/hr References: Kimberley JALLOH et al. Kidney Int. 2010; 79(2):250-257 BUN 69(H) 7 - 25 mg/dL [facility] BUN Post Dialysis 16 7 - 25 mg/dL [facility] UREA REDUCTION RATIO (%) 77 >=65 % [facility] Kt/V Natural Log 1.72 >=1.2 [facility] 11/19/2024 3:00 AM EDT 11/21/2024 3:43 PM EDT Amandeep Gonzalez MD LAB [id number] LICITED RESULTS Final Result Performing Organization Address City/[facility] Co de Phone Number [facility] [address] [place] [address] * (ABNORMAL) Calcium Phosphorus Product, Adjusted (11/19/2024 3:00 AM EDT) Only the most recent of3 resultswithin the time period is included. Albumin 3.8 3.6 - 5.4 g/dL [facility] Calcium 8.3(L) 8.6 - 10.3 mg/dL [facility] Phosphorus, Serum 4.4 2.5 - 5.0 mg/dL [facility] Ca*PO4 36.5 <55.0 mg2/dL2 [facility] Calcium, Adjusted Total 8.5(L) 8.6 - 10.3 mg/dL [facility] CA*PO4 CORRCTD 37.4 <55.0 mg2/dL2 [facility] 11/19/2024 3:00 AM EDT 11/21/2024 3:43 PM EDT Amandeep Gonzalez MD LAB [id number] LICITED RESULTS Final Result Performing Organization Address [facility] Co de Phone Number [facility] [address] [place] [address] * BUN/CREATININE RATIO (11/19/2024 3:00 AM EDT) Only the most recent of3 resultswithin the time period is included. BUN/Creatinine Ratio 9.6 <=23.0 [facility] 11/19/2024 3:00 AM EDT 11/21/2024 3:43 PM EDT us Amandeep Gonzalez MD LAB [id number] LICITED RESULTS Final Result Performing Organization Address [facility] Co de Phone Number [facility] [address] [place] [address] * (ABNORMAL) TSAT (11/19/2024 3:00 AM EDT) Only the most recent of3 resultswithin the time period is included. [facility] Iron 98 65 - 175 ug/dL [facility] Transferrin 153(L) 215 - 365 mg/dL [facility] TIBC 214 211 - 406 ug/dL [facility] Iron Saturation (TSat) 46 22 - 52 % [facility] 11/19/2024 3:00 AM EDT 11/21/2024 3:43 PM EDT Amandeep Gonzalez MD LAB BLOOD ORDERABLES Final Resu lt Performing Organization Address [facility] de Phone Number [facility] [address] [place] [address] * (ABNORMAL) CBC and Differential (11/19/2024 3:00 AM EDT) Only the most recent of3 resultswithin the time period is included. [facility] DIFFERENTIAL MANUAL, 2 Not Indicated [facility] White Blood Cells 6.7 4.2 - 9.1 K/uL [facility] RBC 3.05(L) 4.63 - 6.08 M/uL [facility] Hgb 10.0(L) 13.7 - 17.5 g/dL [facility] Hemoglobin x 3 30.0(L) 41.1 - 52.5 g/dL [facility] Hematocrit 32.6(L) 40.1 - 51.0 % [facility] MCV 106.9(H) 79.0 - 92.2 fL [facility] MCH 32.8(H) 25.7 - 32.2 pg [facility] MCHC 30.7(L) 32.3 - 36.5 g/dL [facility] RDW 14.1 11.6 - 14.4 % [facility] Platelets 63(L) 163 - 337 K/uL [facility] Comment:Possible platelet cl umps detected. Review result with patient history. Neutrophils Relative 73.9(H) 34.0 - 67.9 % [facility] Lymphocytes Relative 11.4(L) 21.8 - 53.1 % [facility] Monocytes 10.3 5.3 - 12.2 % [facility] Eosinophils Relative 2.5 0.8 - 7.0 % [facility] Basophils Relative 0.9 0.2 - 1.2 % [facility] Immature Granulocytes 1.0 0.0 - 1.0 % [facility] 11/19/2024 3:00 AM EDT 11/21/2024 3:31 PM EDT us Amandeep Gonzalez MD LAB BLOOD ORDERABLES Final Resu lt Performing Organization Address [facility] Co de Phone Number [facility] [address] [place] [address] * ALT (11/19/2024 3:00 AM EDT) Only the most recent of3 resultswithin the time period is included. ALT (SGPT) 38 10 - 49 U/L [facility] 11/19/2024 3:00 AM EDT 11/21/2024 3:43 PM EDT us Amandeep Gonzalez MD LAB BLOOD ORDERABLES Final Resu lt Performing Organization Address [facility] de Phone Number [facility] [address] [place] [address] * AST (11/19/2024 3:00 AM EDT) Only the most recent of3 resultswithin the time period is included. AST (SGOT) 19 <34 U/L [facility] 11/19/2024 3:00 AM EDT 11/21/2024 3:43 PM EDT us Amandeep Gonzalez MD LAB BLOOD ORDERABLES Final Resu lt Performing Organization Address [facility] Co de Phone Number [facility] [address] [place] [address] * Protein, total (11/19/2024 3:00 AM EDT) Only the most recent of3 resultswithin the time period is included. Total Protein 6.4 6.4 - 8.9 g/dL [facility] 11/19/2024 3:00 AM EDT 11/21/2024 3:43 PM EDT us Amandeep Gonzalez MD LAB BLOOD ORDERABLES Final Resu lt Performing Organization Address City/[facility] Co de Phone Number [facility] [address] [place] [address] * (ABNORMAL) Alkaline phosphatase (11/19/2024 3:00 AM EDT) Only the most recent of3 resultswithin the time period is included. Alkaline Phosphatase 120(H) 46 - 116 U/L [facility] 11/19/2024 3:00 AM EDT 11/21/2024 3:43 PM EDT us Amandeep Gonzalez MD LAB BLOOD ORDERABLES Final Resu lt Performing Organization Address [facility] de Phone Number [facility] [address] [place] [address] * Magnesium (11/19/2024 3:00 AM EDT) Only the most recent of3 resultswithin the time period is included. Magnesium 2.2 1.9 - 2.7 mg/dL [facility] 11/19/2024 3:00 AM EDT 11/21/2024 3:43 PM EDT us Amandeep Gonzalez MD LAB BLOOD ORDERABLES Final Resu lt Performing Organization Address [facility] Co de Phone Number [facility] [address] [place] [address] * (ABNORMAL) Lactate dehydrogenase (11/19/2024 3:00 AM EDT) Only the most recent of3 resultswithin the time period is included. LDH 308(H) 120 - 246 U/L [facility] 11/19/2024 3:00 AM EDT 11/21/2024 3:43 PM EDT us Amandeep Gonzalez MD LAB BLOOD ORDERABLES Final Resu lt Performing Organization Address [facility] Co de Phone Number [facility] [address] [place] [address] * Glucose, random (11/19/2024 3:00 AM EDT) Only the most recent of3 resultswithin the time period is included. Glucose 93 70 - 99 mg/dL [facility] Comment: ADA guidelines outline the following fasting glucose ranges: Normal: <100 Prediabetes: 100-125 Diabetes: >125 11/19/2024 3:00 AM EDT 11/21/2024 3:43 PM EDT us Amandeep Gonzalez MD LAB BLOOD ORDERABLES Final Resu lt Performing Organization Address [facility] de Phone Number [facility] [address] [place] [address] * (ABNORMAL) Ferritin (11/19/2024 3:00 AM EDT) Only the most recent of3 resultswithin the time period is included. Ferritin 1,464(H) 22 - 322 ng/mL [facility] 11/19/2024 3:00 AM EDT 11/21/2024 3:43 PM EDT us Amandeep Gonzalez MD LAB BLOOD ORDERABLES Final Resu lt Performing Organization Address [facility] de Phone Number [facility] [address] [place] [address] * (ABNORMAL) Creatinine, serum (11/19/2024 3:00 AM EDT) Only the most recent of3 resultswithin the time period is included. Creatinine 7.18(H) 0.70 - 1.30 mg/dL [facility] 11/19/2024 3:00 AM EDT 11/21/2024 3:43 PM EDT us Amandeep Gonzalez MD LAB BLOOD ORDERABLES Final Resu lt Performing Organization Address [facility] Co de Phone Number [facility] [address] [place] [address] * Bilirubin, total (11/19/2024 3:00 AM EDT) Only the most recent of3 resultswithin the time period is included. Total Bilirubin 0.3 0.3 - 1.2 mg/dL [facility] 11/19/2024 3:00 AM EDT 11/21/2024 3:43 PM EDT us Amandeep Gonzalez MD LAB BLOOD ORDERABLES Final Resu lt Performing Organization Address [facility] de Phone Number [facility] [address] [place] [address] * (ABNORMAL) Electrolyte panel (11/19/2024 3:00 AM EDT) Only the most recent of3 resultswithin the time period is included. Sodium 141 136 - 145 mEq/L [facility] Potassium 5.1(H) 3.4 - 5.0 mEq/L [facility] Chloride 97(L) 98 - 107 mEq/L [facility] Bicarbonate (CO2) 31 21 - 31 mEq/L [facility] Anion Gap 13 3 - 14 mEq/L [facility] 11/19/2024 3:00 AM EDT 11/21/2024 3:43 PM EDT us Amandeep Gonzalez MD LAB BLOOD ORDERABLES Final Resu lt Performing Organization Address [facility] de Phone Number [facility] [address] [place] [address] * Vitamin D 25 Hydroxy (10/22/2024 3:00 AM EDT) Vitamin D, 25-Hydroxy 66 30 - 100 ng/mL [facility] Comment: Status Adult Pediatric Deficient: <20 <15 Insufficient: 20-29 15-19 Sufficient: 30-100 20-100 10/22/2024 3:00 AM EDT 10/23/2024 1:30 PM EDT us Amandeep Gonzalez MD LAB BLOOD ORDERABLES Final Resu lt Performing Organization Address [facility] de Phone Number [facility] [address] [place] [address] * Hepatitis B Surface Ag w/Reflex Confirmation (10/15/2024 3:00 AM EDT) Hep B Surface Antigen Negative Negative [facility] 10/15/2024 3:00 AM EDT 10/16/2024 1:30 PM EDT us Amandeep Gonzalez MD LAB BLOOD ORDERABLES Final Resu lt Performing Organization Address [facility] de Phone Number [facility] [address] [place] [address] * PTH, Intact (10/15/2024 3:00 AM EDT) PTH, Intact 262 160 - 721 pg/mL [facility] Comment: Suggested (KDIGO) ESRD maintenance range is two to nine times the upper normal limit (80.1 pg/mL) for the laboratory. 10/15/2024 3:00 AM EDT 10/16/2024 1:30 PM EDT us Amandeep Gonzalez MD LAB BLOOD ORDERABLES Final Resu lt Performing Organization Address [facility] de Phone Number [facility] [address] [place] [address] * Hemoglobin A1c (10/15/2024 3:00 AM EDT) Hemoglobin A1C 4.7 <5.7 % [facility] Comment: Methodology: Enzymatic Normal: <5.7% Prediabetes: 5.7-6.4% Diabetes: >6.4% Diabetic Glucose Control Evaluation: Therapeutic action suggested at >8.0% ADA recommends a glycemic goal of <7.0% 10/15/2024 3:00 AM EDT 10/16/2024 12:53 PM EDT Amandeep Gonzalez MD LAB BLOOD ORDERABLES Final Resu lt Performing Organization Address [facility] de Phone Number [facility] [address] [place] [address] * (ABNORMAL) Lipid panel (10/15/2024 3:00 AM EDT) Cholesterol 102 mg/dL [facility] Comment: Optimal: <200 Borderline: 200-239 High Risk: >239 Triglycerides 86 mg/dL [facility] Comment: Optimal: <150 Borderline: 150-200 High Risk: >200 HDL 39(L) mg/dL [facility] Comment: Optimal: >59 Borderline: 40-59 High Risk: <40 LDL-Calc 46 mg/dL [facility] Comment: Optimal: <100 Borderline: 100-159 High Risk: >159 VLDL Cholesterol Bharat 17 mg/dL [facility] Comment: Optimal: <30 Borderline: 30-40 High Risk: >40 Chol/HDL Ratio 2.6 [facility] Comment: Optimal: <3.3 High Risk: >6.2 10/15/2024 3:00 AM EDT 10/16/2024 1:30 PM EDT Amandeep Gonzalez MD LAB BLOOD ORDERABLES Final Resu lt Performing Organization Address [facility] de Phone Number [facility] [address] [place] [address] from Last 3 Months Insurance Medicare Medicare Care Teams Jute Bag Sewer Relationship Specialty Start Date End Date Edwar Trujillo MD [address] [place] [address] [place] PCP - General 04/26/20
--- OUTSIDE RECORDS SUMMARY | 2024-12-16 15:29 | XMS_ITS | Encounter Summary ---
Author Organization [facility] Address [address] [place] [address] Phone Care Team Providers Care Linen Room Worker Name Role Phone Edwar Trujillo MD Primary Care Provider [phone] Reason for Visit * Reason Comments Med Refill Encounter Details Date Type Department Care Team (Late st Contact Info) Description 09/06/2022 Refill [facility] [address] [place] [address] Anirudh Tinoco MD Social History [...] on filedocumented in this encounter Care Teams Linen Room Worker Relationship Specialty Start Date End Date Edwar Trujillo MD [address] [place] [address] [address] [place] PCP - General 04/26/20 documented as of this encounter
--- OUTSIDE RECORDS SUMMARY | 2024-12-16 15:29 | XMS_ITS | Encounter Summary ---
Author Organization [facility] Address [address] [facility] [address] [facility] [address] [place] [address] Phone Care Team Providers Care Assistant Professor Of Theater Name Role Phone Edwar Trujillo MD Primary Care Provider Encounter Details Date Type Department Care Team (Late st Contact Info) Description 06/04/2020 Orders Only [facility] [address] [place] [phone] Neal Burgess MD Stage 5 chronic kidney [...] failure documented in this encounter Care Teams Assistant Professor Of Theater Relationship Specialty Start Date End Date Edwar Trujillo MD [address] [place] [address] [address] [place] PCP - General 04/26/20 documented as of this encounter
== END 2024-12-16 14:56 | disposition home or self-care (01) ==
LOC: HO.HCS 14:15
PROVIDERS: PCP Family Medicine; Visit Provider Internal Medicine
DX: I42.9 Cardiomyopathy, unspecified (principal); I12.0 Hypertensive chronic kidney disease with stage 5 chronic kidney disease or end stage renal disease; I25.10 Atherosclerotic heart disease of native coronary artery without angina pectoris; I35.9 Nonrheumatic aortic valve disorder, unspecified; E78.5 Hyperlipidemia, unspecified; N18.6 End stage renal disease; Z99.2 Dependence on renal dialysis; Z95.0 Presence of cardiac pacemaker
CPT/HCPCS: 93280; 99214; G2211

== ENCOUNTER → 2024-12-16 14:15 | Outpatient (BNVA) | payer MEDICARE, SELFPAY | PROVIDERS: PCP Family Medicine; Visit Provider Internal Medicine | DX: Z45.018 Encounter for adjustment and management of other part of cardiac pacemaker (principal); I12.0 Hypertensive chronic kidney disease with stage 5 chronic kidney disease or end stage renal disease; I25.10 Atherosclerotic heart disease of native coronary artery without angina pectoris; I35.9 Nonrheumatic aortic valve disorder, unspecified; I42.9 Cardiomyopathy, unspecified; N18.6 End stage renal disease; Z99.2 Dependence on renal dialysis; E78.5 Hyperlipidemia, unspecified | CPT/HCPCS: 99212 ==

== ENCOUNTER 2024-12-25 13:18 | Outpatient (AMB) | payer MEDICARE, SELFPAY ==
--- NOTE | 2024-12-25 13:23 | MHC.PC.OV ---
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 Required: No Accompanied by: Self / Same As Patient Allergies cephalexin (From KEFLEX) Allergy (Severe, Verified 12/25/24 13:23) ANGIO EDEMA lisinopril (LISINOPRIL) Allergy (Severe, Verified 12/25/24 13:23) FACIAL EDEMA simvastatin Allergy (Severe, Verified 12/25/24 13:23) renal insufficiency amlodipine Allergy (Mild, Verified 12/25/24 13:23) renal insuff in combo w/ statin rx Tobacco use date assessed: 12/25/24 Fall risk assessment: No Falls in past year Last assessed Fall Risk: 12/25/24 Dental Screening Dental Screen Date: 12/25/24 Did you have a dental visit in the last 12 months?: Yes Did you have a dental problem in the last 6 months where you did not have access to dental care?: No HPI HPI Comments History of Present Illness Details The patient is an 84-year-old male presenting for routine follow-up regarding his chronic medical conditions and to discuss his dialysis schedule. The patient has a known history of end-stage renal disease, requiring dialysis, currently performed on Mondays, Wednesdays, and Fridays in [place]. He will be transitioning to home dialysis in [place] and may change his dialysis to Sunday, , and Sunday. The onset of renal compromise began four years ago, in July 2021, when his kidneys began shutting down, possibly due to hypertension. He also has a significant cardiac history, including coronary artery disease with one vessel occlusion and a reduced ejection fraction between 45% and 50%. He manages his condition with carvedilol and aspirin. The patient takes atorvastatin due to hyperlipidemia. Despite a family history of diabetes, the patient controls his blood sugar levels through diet, maintaining an HbA1c of 4.8%. The patient denies any prior management for diabetes. Additionally, he reports a history of mild to moderate aortic stenosis identified some years prior and suffers from shoulder joint pain, limiting the elevation of arms but opts not to pursue further surgical intervention. He is also reliant on a pacemaker, with the battery recently reported as needing replacement. The patient's social habits include a history of non-smoking and current non-alcohol use. He denies any illicit drug use. His living situation is soon to change, moving next week to independent living accommodations at [facility]. He expresses mild depressive symptoms related to the stresses of moving and packing away accumulated belongings. Medical History: - End-Stage Renal Disease - Coronary Artery Disease - Heart Failure with Reduced Ejection Fraction (45-50%) - Hyperlipidemia - Mild to Moderate Aortic Stenosis - Type 2 Diabetes Mellitus (diet-controlled) - Anemia secondary to Renal Disease Surgical History: - Pacemaker implantation - Hip fracture repair Medications: - Carvedilol 6.25 mg twice daily for heart failure with reduced ejection fraction - Aspirin for coronary artery disease - Atorvastatin 10 mg for hyperlipidemia Family History: - Stroke in father - Diabetes in both parents - No family history of cancers reported Diagnostic Results: - Labs: Hemoglobin A1c of 4.8% Social: - Resides with ; moving to independent living - Non-smoker - Currently abstains from alcohol use due to dialysis - Denies illicit drug use [facility] Medical History (Updated 12/25/24 @ 13:56 by Kian Osei MD) Hyperlipidemia Avascular necrosis of bone of right hip Presence of arterial-venous shunt (for dialysis) History of transfusion of packed red blood cells ESRD (end stage renal disease) on dialysis Normally functioning cardiac pacemaker present Essential hypertension Valvular heart disease Chronic heart failure with preserved ejection fraction (HFpEF) Pulmonary hypertension Arthritis Anemia NAVA (dyspnea on exertion) Rhabdomyolysis due to statin therapy Chronic kidney disease Diabetes Atherosclerotic cardiovascular disease Aortic valvular disease Pacemaker CHF (congestive heart failure) HTN (hypertension) Surgical History 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, 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) History of cardiac catheterization (~08/2020) History of tonsillectomy Status cardiac pacemaker S/P excision of lipoma Hx of colonoscopy Family History Father Stroke Mother Stroke Diabetes Social History Household Members: Spouse Housing: Apartment Are you a primary adult live in caregiver to a significant other at home: No Do you presently have visiting nurse or other home services: Yes (elder services, meals on wheels) Alcohol intake: current Alcohol intake frequency: former alcohol drinker Alcohol type: hard liquor Patient Tobacco Use Status: Never used Tobacco e-Cigarette/Vaping Use: Never Used Advance Directives Date on File: 04/26/20 service: Yes Current occupational status: retired Current occupation: rt handed Questionnaire PHQ-9 Over the last 2 weeks, how often have you been bothered by any of the following problems? 1. Little interest or pleasure in doing things: not at all 2. Feeling down, depressed, or hopeless: not at all 3. Trouble falling or staying asleep, or sleeping too much: not at all 4. Feeling tired or having little energy: not at all 5. Poor appetite or overeating: not at all 6. Feeling bad about yourself - or that you are a failure or have let yourself or your family down: not at all 7. Trouble concentrating on things, such as reading the newspaper or watching television: not at all 8. Moving or speaking so slowly that other people could have noticed. Or the opposite - being so fidgety or restless that you have been moving around a lot more than usual: not at all 9. Thoughts that you would be better off or of hurting yourself in some way: not at all Total score: 0 Depression Screening Interpretation: Negative Depression Screening Done: Yes 93642 - PHQ-9 Billing: Yes Source: Developed by Drs. Deven Peterson, Desirae Munoz, Familia Smith and colleagues, with an educational roxana from [employer]. Thrive Questionnaire Date Thrive assessed: 12/25/24 I am a: Patient What is your living situation today?: I have a steady place to live Within the past 12 months, did the food you bought not last and you didn't have the money to get more?: Never true Within the past 12 months, did you worry whether your food would run out before you got money to buy more?: Never true Do you have trouble paying for medicines?: No Do you have trouble getting transportation to medical appointments?: No Do you have trouble paying your heating and electricity bill?: No Do you have trouble taking care of your child, family member or friend?: No Do you have trouble with day-to-day activities such as bathing, preparing meals, shopping, managing finances, etc.?: No Are you currently unemployed and looking for a job?: No Are you interested in more education?: No THRIVE Score: 0 AUDIT C Alcohol Use Questionnaire (AUDIT-C) 1. How often do you have a drink containing alcohol?: Never 3. How often do you have six or more drinks on one occasion?: Never Total Score: 0 Score Reviewed/Action Taken: Yes SHADI-7 AMB Questionnaire SHADI-7 Date SHADI - 7 assessed: 12/25/24 Feeling nervous, anxious, or on edge: 0 = Not at all Not being able to stop or control worryin = Not at all Worrying too much about different things: 0 = Not at all Trouble relaxin = Not at all Being so restless that it is hard to sit still: 0 = Not at all Becoming easily annoyed or irritable: 0 = Not at all Feeling afraid as if something awful might happen: 0 = Not at all Total SHADI-7 score (0-4 normal; 5-9 mild; 10-14 moderate; 15-21 severe): 0 Source: Developed by Drs. Deven Peterson, Desirae Munoz, Familia Smith and colleagues, with an educational roxana from [employer]. SHADI-7 Assessment Billing SHADI-7 Assessment Tool: SHADI-7 Assessment 40743 Review of Systems Const Details: - Cardiovascular: Denies current chest pain, admits to past coronary artery disease - Respiratory: Denies shortness of breath - Musculoskeletal: Reports shoulder joint pain - Genitourinary: Reports minimal kidney function, on dialysis - Gastrointestinal: Denies nausea, vomiting - Neurological: Denies headache All systems reviewed & are unremarkable except as reviewed in HPI and above Physical exam (Primary Care) Vital Signs: Last Vital Signs Temp 98.2 F 12/25/24 13:30 Pulse 64 12/25/24 13:30 Resp 18 12/25/24 13:30 BP 116/52 L 12/25/24 13:30 Pulse Ox 98 12/25/24 13:30 Oxygen Delivery Method Room Air 09/11/25 13:30 BMI result Body Mass Index 26.6 Tobacco/Smoking Status: Tobacco use Status Tobacco use date assessed 12/25/24 12/25/24 13:25 Patient Tobacco Use Status Never used Tobacco 12/25/24 13:25 e-Cigarette/Vaping Use Never Used 12/25/24 13:34 Depression Screening Interpretation: Negative Thrive Assessment: Date of Thrive Assessment Date Thrive assessed 12/15/23 12/25/24 13:25 Const Other: General: +Alert and oriented, Well nourished, No acute distress. Eye: Pupils are equal, round and reactive to light, Intact accommodation, Extraocular movements are intact, Normal conjunctiva, Vision unchanged. HENT: Normocephalic, Atraumatic, Tympanic membranes are clear, Normal hearing, Oral mucosa is moist, No pharyngeal erythema, Ear canals patent. Respiratory: Lungs CTA bilaterally, No wheeze, Respirations are non-labored. Cardiovascular: Regular rate, Regular rhythm, S1 auscultated, S2 auscultated, No murmur, Good pulses equal in all extremities, Normal peripheral perfusion, No edema. Gastrointestinal: Soft, Non-tender, Non-distended, Normal bowel sounds, No organomegaly. Musculoskeletal: Normal range of motion, Normal strength, No tenderness, No swelling, No deformity, Normal gait. Integumentary: Warm, Dry, [place], Intact. Neurologic: Alert, Oriented, Normal sensory, Normal motor function, No focal defects, Cranial Nerves II-XII are grossly intact, Normal deep tendon reflexes. Psychiatric: Cooperative, Appropriate mood & affect, Normal judgment, Mild depression related to moving stress. Coding Level of Care Code New Pt Level 4 (84343) Complex EM visit Add On G2211 Diagnoses Essential hypertension I10 Cardiomyopathy, unspecified type I42.9 Cardiomyopathy type: unspecified Chronic heart failure with preserved ejection fraction (HFpEF) I50.32 Pacemaker Z95.0 ESRD (end stage renal disease) N18.6 Aortic valvular disease I35.9 Anemia in other chronic diseases classified elsewhere D63.8 Anemia type: other cause Other causes of anemia: chronic disease, other Hyperlipidemia, unspecified hyperlipidemia type E78.5 Hyperlipidemia type: unspecified Additional Codes PHQ-9 - 68147 - PHQ-9 Billing: Yes ([id number]) SHADI-7 Assessment Billing - SHADI-7 Assessment Tool: SHADI-7 Assessment 20065 ([id number]) Assessment & Plan Assessment & Plan (1) Essential hypertension: Code(s): I10 - Essential (primary) hypertension Category: Medical (2) Cardiomyopathy: Comment: - Continue aspirin therapy. - Monitor cardiovascular status; Code(s): I42.9 - Cardiomyopathy, unspecified Category: Medical Qualifiers: Cardiomyopathy type: unspecified Qualified Code(s): I42.9 - Cardiomyopathy, unspecified (3) Chronic heart failure with preserved ejection fraction (HFpEF): Comment: - Continue carvedilol 6.25 mg twice daily. - ECHO from 2023 reviewed EF of 40-45% - Monitor for decompensation. Code(s): I50.32 - Chronic diastolic (congestive) heart failure Category: Medical (4) Pacemaker: Comment: - follow up with asw/asuw tactical air controller for pacemaker battery replacement. Code(s): Z95.0 - Presence of cardiac pacemaker Category: Medical (5) ESRD (end stage renal disease): Comment: - Continue current dialysis schedule TTS; anticipate change to home dialysis in [facility]. - Monitor renal function and adjust dialysis frequency per nephrology Code(s): N18.6 - End stage renal disease Category: Medical (6) Aortic valvular disease: Comment: - Periodic echocardiogram to monitor valve function - Mild ot moderate per echo in 2023 Code(s): I35.9 - Nonrheumatic aortic valve disorder, unspecified Category: Medical (7) Anemia: Comment: - Monitor hemoglobin levels in dialysis review. Code(s): D64.9 - Anemia, unspecified Category: Medical Qualifiers: Anemia type: other cause Other causes of anemia: chronic disease, other Qualified Code(s): D63.8 - Anemia in other chronic diseases classified elsewhere (8) Hyperlipidemia: Comment: - Continue atorvastatin 10 mg. - Regular monitoring of lipid profile advised (usually completed at HD and last panel reviewed) Code(s): E78.5 - Hyperlipidemia, unspecified Category: Medical Qualifiers: Hyperlipidemia type: unspecified Qualified Code(s): E78.5 - Hyperlipidemia, unspecified Plan During this visit, I discussed with the patient the continuation of his current treatment regimen for his various chronic conditions, notably his renal dialysis schedule transition to home dialysis. I reviewed the importance of maintaining adequate cardiac function through his current medication regimen and the necessity of battery replacement for his pacemaker, suggested coordinating with his asw/asuw tactical air controller. We acknowledged his well-controlled diabetes through diet and recommended periodic monitoring of HbA1c to ensure continued success. We discussed the necessity of monitoring his aortic stenosis while avoiding additional drug intervention unless there's significant progression. The change in dialysis schedule due to his upcoming relocation to [place] and the impact of stressors like moving were acknowledged, providing reassurances and affirming his overall health stability. Patient Instructions: - Follow up with dialysis schedule change to ensure continuity of care. - Monitor cardiac health and report any new symptoms immediately. - Maintain current diet to control blood sugar levels. - Schedule a pacemaker battery replacement promptly. - For any exacerbation of shoulder pain, consult with specialists as needed. - Keep all appointments with health care providers to monitor conditions. - Communicate any heightened stress levels or depressive symptoms related to the move.
[2024-12-25 13:30] VITALS: BP 116/52; PULSE 64; RESP 18; TEMP 36.8; O2SAT 98; BMI 26.6
--- OUTSIDE RECORDS SUMMARY | 2024-12-25 17:19 | XMS_ITS | Encounter Summary ---
Author Organization [facility] Address [address] [facility] [address] [place] [address] Phone Care Team Providers Care Supervisor Irrigation Name Role Phone Edwar Trujillo MD Primary Care Provider [phone] Encounter Details Date Type Department Care Team (Late st Contact Info) Description 06/04/2020 Orders Only [facility] [address] [place] [id number] Neal Burgess MD Stage 5 chronic kidney [...] failure documented in this encounter Care Teams Supervisor Irrigation Relationship Specialty Start Date End Date Edwar Trujillo MD [address] [place] [address] [address] [place] PCP - General 04/26/20 documented as of this encounter
--- OUTSIDE RECORDS SUMMARY | 2024-12-25 17:19 | XMS_ITS | Encounter Summary ---
Author Organization [facility] Address [address] [place] [address] Phone Care Team Providers Care Salon Professional Name Role Phone Edwar Trujillo MD Primary Care Provider [phone] Reason for Visit * Reason Comments Med Refill Encounter Details Date Type Department Care Team (Late st Contact Info) Description 09/06/2022 Refill [facility] [address] [place] [address] Anirudh Tinoco MD Social History [...] on filedocumented in this encounter Care Teams Salon Professional Relationship Specialty Start Date End Date Edwar Trujillo MD [address] [place] [address] [address] [place] PCP - General 04/26/20 documented as of this encounter
--- OUTSIDE RECORDS SUMMARY | 2024-12-25 17:19 | XMS_ITS | Patient Health Record ---
Author Organization [facility] Address [address] [place] [address] Care Team Providers Care Senior Analyst Market Intelligence Name Role Phone Ronnie (RETIRED) Edwar OVALLE Primary Care Provider Unavailable Deven Mccallum Unavailable [phone] Allergies Allergen (clinical drug ingredient) Drug/Non Drug [...] W/U Status Risk Notes Problem Screening colonoscopy (198392497) Encounter for screening colonoscopy (Z12.11) Active confirmed Problem 208130279 Encounter for screening for malignant neoplasm of colon (Z12.11) Active confirmed Problem 431273775 History of adenomatous polyp of colon (Z86.010) Active confirmed Problem Polyp of colon (disorder) (28494829) Colon polyps (K63.5) Active confirmed Problem Tubular adenoma of colon (783340586) Tubular adenoma of colon (D12.6) Active confirmed Problem 16297151 Heme + stool (R19.5) Active confirmed Problem History of polyp of colon (situation) (759184138) Hx of colonic polyps (Z86.010) Active confirmed Problem Anemia (429483682) Anemia (D64.9) Active confirmed Problem Gallstones (158274307) Gallstones (K80.20) Active confirmed Problem 382347197 Long-term use of aspirin therapy (Z79.82) Active confirmed Problem 624476138 Anemia, unspecified type (D64.9) Active confirmed Problem 275143629 Adenoma of transverse colon (D12.3) Active confirmed Problem 11713048 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 Vital Signs Blood pressure diastolic 00 mm Hg 02/26/2024 Height 5 ft 5 in in 02/26/2024 Blood pressure systolic 00 mm Hg 02/26/2024 Weight 148 lbs 02/26/2024 BMI 24.63 kg/m2 02/26/2024 Encounters Encounter Location Date Provider Diagnosis [facility] [address] [place] [phone] 02/26/2024 Deven Mccallum Anemia, unspecified type D64.9 [...] Start Date Coverage End Date [facility]ICARE OF [facility] [address] [place] [address] [id number] JONA FATOU Self - patient is the insured Medical (General) History Medical History History ICD Code Colonoscopy in 2002 with the removal of 2 tubular adenomas Colonoscopy 02/11/2008--1 tubular adenom a removed HTN Hyperlipidemia Hospitalized end of 06/13/13 with fluid retention, elevated CPK, and some renal insufficiency--due to Simvastatin and Amlodipine--he was treated and improved--he did not have a ID Denies ID,DM,CVA,Lung disease Pacemaker 02/24/2014 Colonoscopy in 08/2013--tubul ar [...]
--- OUTSIDE RECORDS SUMMARY | 2024-12-25 17:19 | XMS_ITS | Encounter Summary ---
Author Organization [facility] Address [address] [address] Phone Care Team Providers Care Construction Area Manager Name Role Phone Edwar Trujillo MD Primary Care Provider [phone] Encounter Details Date Type Department Care Team (Late st Contact Info) Description 12/24/2024 Treatment [facility] [address] [address] Amandeep López MD [address] [address] End stage renal disease; Dependence [...] Dialysis Note - Amandeep López MD - 12/24/2024 12:00 AM EDT BASIC NOTE Patient: George Levy : 1940 Note Author: AMANDEEP LÓPEZ MD Service Date: 12/24/2024 This patient was personally seen [id number] for a basic visit as part of routine monthly dialysis care for end stage renal disease. Attending Shoe Repairer: AMANDEEP LÓPEZ MD Dialysis Location: [facility] Schedule: Shift: 2 OVERVIEW Patient is stable. HOME MEDICATIONS Current [facility] Outpatient Medications acetaminophen (TYLENOL 8 HOUR) CR [...] (one) time each day Start Date: Current [facility] Allergies Allergen: CARVEDILOL Reaction: Other (see comments) Allergen: CEPHALEXIN Reaction: Other (see comments) Allergen: LISINOPRIL Reaction: Other (see comments) ADEQUACY ASSESSMENT Kt/V, Natural Log 1.63 (12/17/24) 1.72 (11/19/24) 1.68 (10/15/24) UREA REDUCTION RATIO (%) 76 (12/17/24) 77 (11/19/24) 77 (10/15/24) BUN 74 (12/17/24) 69 (11/19/24) 71 (10/15/24) BUN Post Dialysis 18 (12/17/24) 16 (11/19/24) 16 (10/15/24) Creatinine 7.46 (12/17/24) 7.18 (11/19/24) 7.55 (10/15/24) Bicarbonate (CO2) 26 (12/17/24) 31 (11/19/24) 26 (10/15/24) Sodium 141 (12/17/24) 141 (11/19/24) 138 (10/15/24) ANEMIA ASSESSMENT Hgb 11.0 (12/17/24) 10.6 (12/03/24) 10.0 (11/19/24) Iron Saturation (TSat) 37 (12/17/24) 46 (11/19/24) 24 (10/15/24) Ferritin 1,634 (12/17/24) 1,464 (11/19/24) 1,429 (10/15/24) Iron 76 (12/17/24) 98 (11/19/24) 53 (10/15/24) TIBC 204 (12/17/24) 214 (11/19/24) 224 (10/15/24) MCV 104.1 (12/17/24) 106.9 (11/19/24) 104.0 (10/15/24) Platelets 65 (12/17/24) 63 (11/19/24) 108 (10/15/24) BMM ASSESSMENT Calcium, Adjusted Total 8.4 12/17/24 8.5 11/19/24 9.0 10/15/24 Calcium 8.3 12/17/24 8.3 11/19/24 9.0 10/15/24 Phosphorus, Serum 5.2 12/17/24 4.4 11/19/24 4.7 10/15/24 Ca*PO4 43.2 12/17/24 36.5 11/19/24 42.3 10/15/24 PTH, Intact 262 10/15/24 291 07/16/24 339 04/23/24 Vitamin D, 25-Hydroxy 66 10/22/24 47 05/28/24 Magnesium 2.3 12/17/24 2.2 11/19/24 2.4 10/15/24 Alkaline Phosphatase 136 12/17/24 120 11/19/24 115 10/15/24 Aluminum 4 04/23/24 3 03/26/24 NUTRITION ASSESSMENT Albumin 3.9 12/17/24 3.8 11/19/24 4.1 10/15/24 Potassium 5.2 12/17/24 5.1 11/19/24 4.7 10/15/24 Hemoglobin A1C 4.7 10/15/24 4.8 07/16/24 5.0 04/23/24 ADDITIONAL LABS White Blood Cells 4.9 (12/17/24) 6.7 (11/19/24) 5.6 (10/15/24) Cholesterol 102 (10/15/24) 103 (07/16/24) 104 (04/23/24) HDL 39 (10/15/24) 44 (07/16/24) 46 (04/23/24) LDL-Calc 46 (10/15/24) 41 (07/16/24) 42 (04/23/24) Triglycerides 86 (10/15/24) 89 (07/16/24) 81 (04/23/24) Hep B Surface Antibody 756 (04/23/24) 667 (03/19/24) Uric Acid 6.9 (04/23/24) Signed by: AMANDEEP LÓPEZ MD on 12/24/2024 at 12:51:45 PM Transcribed by: AMANDEEP LÓPEZ MD on 12/24/2024 at 12:51:45 PM documented in this encounter Plan of Treatment Not on file documented as of this encounter Visit Diagnoses Diagnosis End stage renal disease Dependence on renal dialysis documented in this encounter Care Teams Construction Area Manager Relationship Specialty Start Date End Date Edwar Trujillo MD [address] [place] [address] BELINDA LEDESMA [place] PCP - General 04/26/20 documented as of this encounter
--- OUTSIDE RECORDS SUMMARY | 2024-12-25 17:19 | XMS_ITS | Clinical Summary ---
Author Organization [facility] Address [address] [facility] [address] [place] [address] Phone Care Team Providers Care Plastics Fabricator Name Role Phone Edwar Trujillo MD Primary Care Provider [phone] Allergies Active Allergy Reactions Criticality Noted Date [...] Encounters Date Type Department Care Team Description 12/24/2024 Treatment [facility] [address] [phone] Amandeep Gonzalez MD End stage renal disease; Dependence on renal dialysis 12/17/2024 Treatment [facility] [address] [phone] Amandeep Gonzalez MD End stage renal disease; Dependence on renal dialysis 12/03/2024 Treatment [facility] [address] [phone] Amandeep Gonzalez MD End stage renal disease; Dependence on renal dialysis 11/26/2024 Treatment [facility] [address] [phone] Amandeep Gonzalez MD End stage renal disease; Dependence on renal dialysis 11/19/2024 Treatment [facility] [address] [phone] Amandeep Gonzalez MD End stage renal disease; Dependence on renal dialysis 11/14/2024 Treatment [facility] [address] [phone] Amandeep Gonzalez MD End stage renal disease; Dependence on renal dialysis 11/05/2024 Treatment [facility] [address] [place] [phone] Amandeep Gonzalez MD End stage renal disease; Dependence on renal dialysis 10/29/2024 Treatment [facility] [address] [phone] Amandeep Gonzalez MD End stage renal disease; Dependence on renal dialysis 10/22/2024 Treatment [facility] [address] [phone] Amandeep Gonzalez MD End stage renal disease; Dependence on renal dialysis 10/15/2024 Orders Only [facility] [address] [phone] Amandeep Gonzalez MD 10/15/2024 Treatment [facility] [address] [phone] Amandeep Gonzalez MD End stage renal disease; Dependence on renal dialysis 10/08/2024 Treatment [facility] [address] [phone] Amandeep Gonzalez MD End stage renal disease; Dependence on renal dialysis 10/03/2024 Treatment [facility] [address] [phone] Amandeep Gonzalez MD End stage renal disease; Dependence on renal dialysis 09/24/2024 Treatment [facility] [address] [phone] Amandeep Gonzalez MD End stage renal disease; [...] Procedure Name Priority Date/Time Associated Diagnosis Comments CBC AND DIFFERENTIAL Routine 12/17/2024 3:00 AM EDT PROTEIN, TOTAL, SERUM Routine 12/17/2024 3:00 AM EDT TRANSFERRIN SATURATION Routine 3:00 AM EDT MAGNESIUM Routine 12/17/2024 3:00 AM EDT LIH (HC) Routine 12/17/2024 3:00 AM EDT ELECTROLYTE PANEL Routine 12/17/2024 3:0 0 AM EDT BUN/CREATININE RATIO Routine 12/17/2024 3:00 AM EDT GLUCOSE, RANDOM Routine 12/17/2024 3:00 AM EDT LACTATE DEHYDROGENASE Routine 12/17/2024 3:00 AM EDT CREATININE, SERUM Routine 12/17/2024 3:0 0 AM EDT BILIRUBIN, TOTAL Routine 12/17/2024 3:00 AM EDT AST Routine 12/17/2024 3:00 AM EDT ALT Routine 12/17/2024 3:00 AM EDT ALKALINE PHOSPHATASE Routine 12/17/2024 3:00 AM EDT CALCIUM PHOSPHORUS PRODUCT, ADJUSTED (HC) Routine 12/17/2024 3:00 AM EDT FERRITIN Routine 12/17/2024 3:00 AM EDT KT/V NATURAL LOG, URR (HC) Routine 12/17/2024 3:00 AM EDT HEMOGLOBIN Routine 12/03/2024 3:00 AM EDT FERRITIN [...] 3:00 AM EDT BILIRUBIN, TOTAL Routine 11/19/2024 3:0 0 AM EDT CALCIUM PHOSPHORUS PRODUCT, ADJUSTED (HC) [...] EDT HEMOGLOBIN Routine 10/01/2024 3:00 AM EDT from Last 3 Months Results * LIH (12/17/2024 3:00 AM EDT) Only the most recent of3 resultswithin the time period is included. Lipemia Normal Normal [facility] Icterus Normal Normal [facility] Hemolysis Normal Normal [facility] 12/17/2024 3:00 AM EDT 12/18/2024 5:15 PM EDT us Amandeep Gonzalez MD LAB [id number] LICITED RESULTS Final Result [facility] [address] [place] [address] * (ABNORMAL) Kt/V Natural Log, URR (12/17/2024 3:00 AM EDT) Only the most recent of3 resultswithin the time period is included. Treatment Time 197 min [facility] Pre-Weight, lb 74.6 kg [facility] Post-Weight, lb 72.2 kg [facility] Ultrafiltration Rate 10 <=13 mL/kg/hr [facility] Comment: Recommend achieving Ultrafiltration Rate (UFR) <=10 mL/kg/hr References: Kimberley JALLOH et al. Kidney Int. 2010; 79(2):250-257 BUN 74(H) 7 - 25 mg/dL [facility] BUN Post Dialysis 18 7 - 25 mg/dL [facility] UREA REDUCTION RATIO (%) 76 >=65 % [facility] Kt/V Natural Log 1.63 >=1.2 [facility] 12/17/2024 3:00 AM EDT 12/18/2024 5:15 PM EDT us Amandeep Gonzalez MD LAB [id number] LICITED RESULTS Final Result Performing Organization Address City/[facility]/ZIP Co de Phone Number [facility] [address] [place] [address] * (ABNORMAL) Calcium Phosphorus Product, Adjusted (12/17/2024 3:00 AM EDT) Only the most recent of3 resultswithin the time period is included. Albumin 3.9 3.6 - 5.4 g/dL [facility] Calcium 8.3(L) 8.6 - 10.3 mg/dL [facility] Phosphorus, Serum 5.2(H) 2.5 - 5.0 mg/dL [facility] Ca*PO4 43.2 <55.0 mg2/dL2 [facility] Calcium, Adjusted Total 8.4(L) 8.6 - 10.3 mg/dL [facility] CA*PO4 CORRCTD 43.7 <55.0 mg2/dL2 [facility] 12/17/2024 3:00 AM EDT 12/18/2024 5:15 PM EDT Amandeep Gonzalez MD LAB [id number] LICITED RESULTS Final Result Performing Organization Address [facility] Co de Phone Number [facility] [address] [place] [address] * BUN/CREATININE RATIO (12/17/2024 3:00 AM EDT) Only the most recent of3 resultswithin the time period is included. BUN/Creatinine Ratio 9.9 <=23.0 [facility] 12/17/2024 3:00 AM EDT 12/18/2024 5:15 PM EDT us Amandeep Gonzalez MD LAB [id number] LICITED RESULTS Final Result Performing Organization Address City/[facility] Co de Phone Number [facility] [address] [place] [address] * (ABNORMAL) TSAT (12/17/2024 3:00 AM EDT) Only the most recent of3 resultswithin the time period is included. Pathologist [facility] Iron 76 65 - 175 ug/dL [facility] Transferrin 146(L) 215 - 365 mg/dL [facility] TIBC 204(L) 211 - 406 ug/dL [facility] Iron Saturation (TSat) 37 22 - 52 % [facility] 12/17/2024 3:00 AM EDT 12/18/2024 5:15 PM EDT us Amandeep Gonzalez MD LAB BLOOD ORDERABLES Final Resu lt [facility] [address] [place] [address] * (ABNORMAL) CBC and Differential (12/17/2024 3:00 AM EDT) Only the most recent of3 resultswithin the time period is included. [facility] DIFFERENTIAL MANUAL, 2 Not Indicated [facility] White Blood Cells 4.9 4.2 - 9.1 K/uL [facility] RBC 3.38(L) 4.63 - 6.08 M/uL [facility] Hgb 11.0(L) 13.7 - 17.5 g/dL [facility] Hemoglobin x 3 33.0(L) 41.1 - 52.5 g/dL [facility] Hematocrit 35.2(L) 40.1 - 51.0 % [facility] MCV 104.1(H) 79.0 - 92.2 fL [facility] MCH 32.5(H) 25.7 - 32.2 pg [facility] MCHC 31.3(L) 32.3 - 36.5 g/dL [facility] RDW 14.2 11.6 - 14.4 % [facility] Platelets 65(L) 163 - 337 K/uL [facility] Comment:Possible platelet cl umps detected. Review result with patient history. MPV 13.9(H) 9.1 - 13.0 fL [facility] Neutrophils Relative 71.6(H) 34.0 - 67.9 % [facility] Lymphocytes Relative 12.4(L) 21.8 - 53.1 % [facility] Monocytes 11.6 5.3 - 12.2 % [facility] Eosinophils Relative 2.6 0.8 - 7.0 % [facility] Basophils Relative 1.2 0.2 - 1.2 % [facility] Immature Granulocytes 0.6 0.0 - 1.0 % [facility] 12/17/2024 3:00 AM EDT 12/18/2024 7:37 PM EDT us Amandeep Gonzalez MD LAB BLOOD ORDERABLES Final Resu lt Performing Organization Address [facility] de Phone Number [facility] [address] [place] [address] * ALT (12/17/2024 3:00 AM EDT) Only the most recent of3 resultswithin the time period is included. ALT (SGPT) 34 10 - 49 U/L [facility] 12/17/2024 3:00 AM EDT 12/18/2024 5:15 PM EDT us Amandeep Gonzalez MD LAB BLOOD ORDERABLES Final Resu lt Performing Organization Address [facility] de Phone Number [facility] [address] [place] [address] * AST (12/17/2024 3:00 AM EDT) Only the most recent of3 resultswithin the time period is included. AST (SGOT) 21 <34 U/L [facility] 12/17/2024 3:00 AM EDT 12/18/2024 5:15 PM EDT us Amandeep Gonzalez MD LAB BLOOD ORDERABLES Final Resu lt Performing Organization Address [facility] de Phone Number [facility] [address] [place] [address] * Protein, total (12/17/2024 3:00 AM EDT) Only the most recent of3 resultswithin the time period is included. Total Protein 6.6 6.4 - 8.9 g/dL [facility] 12/17/2024 3:0 0 AM EDT 12/18/2024 5:15 PM EDT us Amandeep Gonzalez MD LAB BLOOD ORDERABLES Final Resu lt Performing Organization Address [facility]/ZIP Co de Phone Number [facility] [address] [place] [address] * (ABNORMAL) Alkaline phosphatase (12/17/2024 3:00 AM EDT) Only the most recent of3 resultswithin the time period is included. Alkaline Phosphatase 136(H) 46 - 116 U/L [facility] 12/17/2024 3:00 AM EDT 12/18/2024 5:15 PM EDT us Amandeep Gonzalez MD LAB BLOOD ORDERABLES Final Resu lt Performing Organization Address [facility] de Phone Number [facility] [address] [place] [address] * Magnesium (12/17/2024 3:00 AM EDT) Only the most recent of3 resultswithin the time period is included. Magnesium 2.3 1.9 - 2.7 mg/dL [facility] 12/17/2024 3:00 AM EDT 12/18/2024 5:15 PM EDT us Amandeep Gonzalez MD LAB BLOOD ORDERABLES Final Resu lt Performing Organization Address [facility] Co de Phone Number [facility] [address] [place] [address] * (ABNORMAL) Lactate dehydrogenase (12/17/2024 3:00 AM EDT) Only the most recent of3 resultswithin the time period is included. LDH 303(H) 120 - 246 U/L [facility] 12/17/2024 3:00 AM EDT 12/18/2024 5:15 PM EDT us Amandeep Gonzalez MD LAB BLOOD ORDERABLES Final Resu lt Performing Organization Address City/[facility] Co de Phone Number [facility] [address] [place] [address] * Glucose, random (12/17/2024 3:00 AM EDT) Only the most recent of3 resultswithin the time period is included. Glucose 92 70 - 99 mg/dL [facility] Comment: ADA guidelines outline the following fasting glucose ranges: Normal: <100 Prediabetes: 100-125 Diabetes: >125 12/17/2024 3:00 AM EDT 12/18/2024 5:15 PM EDT us Amandeep Gonzalez MD LAB BLOOD ORDERABLES Final Resu lt Performing Organization Address [facility]/ZIP Co de Phone Number [facility] [address] [place] [address] * (ABNORMAL) Ferritin (12/17/2024 3:00 AM EDT) Only the most recent of3 resultswithin the time period is included. Ferritin 1,634(H) 22 - 322 ng/mL [facility] 12/17/2024 3:00 AM EDT 12/18/2024 5:15 PM EDT us Amandeep Gonzalez MD LAB BLOOD ORDERABLES Final Resu lt Performing Organization Address [facility] Co de Phone Number [facility] [address] [place] [address] * (ABNORMAL) Creatinine, serum (12/17/2024 3:00 AM EDT) Only the most recent of3 resultswithin the time period is included. Creatinine 7.46(H) 0.70 - 1.30 mg/dL [facility] 12/17/2024 3:00 AM EDT 12/18/2024 5:15 PM EDT us Amandeep Gonzalez MD LAB BLOOD ORDERABLES Final Resu lt Performing Organization Address [facility]/ZIP Co de Phone Number [facility] [address] [place] [address] * Bilirubin, total (12/17/2024 3:00 AM EDT) Only the most recent of3 resultswithin the time period is included. Total Bilirubin 0.3 0.3 - 1.2 mg/dL [facility] 12/17/2024 3:00 AM EDT 12/18/2024 5:15 PM EDT us Amandeep Gonzalez MD LAB BLOOD ORDERABLES Final Resu lt Performing Organization Address [facility] Co de Phone Number [facility] [address] [place] [address] * (ABNORMAL) Electrolyte panel (12/17/2024 3:00 AM EDT) Only the most recent of3 resultswithin the time period is included. Sodium 141 136 - 145 mEq/L [facility] Potassium 5.2(H) 3.4 - 5.0 mEq/L [facility] Chloride 99 98 - 107 mEq/L [facility] Bicarbonate (CO2) 26 21 - 31 mEq/L [facility] Anion Gap 16(H) 3 - 14 mEq/L [facility] 12/17/2024 3:00 AM EDT 12/18/2024 5:15 PM EDT us Amandeep Gonzalez MD LAB BLOOD ORDERABLES Final Resu Performing Organization Address [facility] de Phone Number [facility] [address] [place] [address] * (ABNORMAL) Hemoglobin (12/03/2024 3:00 AM EDT) Only the most recent of4 resultswithin the time period is included. Hgb 10.6(L) 13.7 - 17.5 g/dL [facility] Hemoglobin x 3 31.8(L) 41.1 - 52.5 g/dL [facility] 12/03/2024 3:00 AM EDT 12/04/2024 1:17 PM EDT us Amandeep Gonzalez MD LAB BLOOD ORDERABLES Final Resu lt Performing Organization Address [facility] de Phone Number [facility] [address] [place] [address] * Vitamin D 25 Hydroxy (10/22/2024 3:00 AM EDT) Vitamin D, 25-Hydroxy 66 30 - 100 ng/mL [facility] Comment: Status Adult Pediatric Deficient: <20 <15 Insufficient: 20-29 15-19 Sufficient: 30-100 20-100 10/22/2024 3:00 AM EDT 10/23/2024 1:30 PM EDT us Amandeep Gonzalez MD LAB BLOOD ORDERABLES Final Resu lt Performing Organization Address [facility] de Phone Number [facility] [address] [place] [address] * Hepatitis B Surface Ag w/Reflex Confirmation (10/15/2024 3:00 AM EDT) Hep B Surface Antigen Negative Negative [facility] 10/15/2024 3:00 AM EDT 10/16/2024 1:30 PM EDT us Amandeep Gonzalez MD LAB BLOOD ORDERABLES Final Resu lt Performing Organization Address [facility] de Phone Number [facility] [address] [place] [address] * PTH, Intact (10/15/2024 3:00 AM EDT) PTH, Intact 262 160 - 721 pg/mL [facility] Comment: Suggested (KDIGO) ESRD maintenance range is two to nine times the upper normal limit (80.1 pg/mL) for the laboratory. 10/15/2024 3:00 AM EDT 10/16/2024 1:30 PM EDT us Amandeep Gonzalez MD LAB BLOOD ORDERABLES Final Resu lt Performing Organization Address [facility] Co de Phone Number [facility] [address] [place] [address] * Hemoglobin A1c (10/15/2024 3:00 AM EDT) Hemoglobin A1C 4.7 <5.7 % [facility] Comment: Methodology: Enzymatic Normal: <5.7% Prediabetes: 5.7-6.4% Diabetes: >6.4% Diabetic Glucose Control Evaluation: Therapeutic action suggested at >8.0% ADA recommends a glycemic goal of <7.0% 10/15/2024 3:00 AM EDT 10/16/2024 12:53 PM EDT Amandeep Gonzalez MD LAB BLOOD ORDERABLES Final Resu lt Performing Organization Address [facility] de Phone Number [facility] [address] [place] [address] * (ABNORMAL) Lipid panel (10/15/2024 3:00 AM [...] ORDERABLES Final Resu lt Performing Organization Address [facility] de Phone Number [facility] [address] [place] [address] from Last 3 Months Insurance Medicare Medicare Care Teams Plastics Fabricator Relationship Specialty Start Date End Date Edwar Trujillo MD [address] [place] [address] [address] [place] PCP - General 04/26/20
--- OUTSIDE RECORDS SUMMARY | 2024-12-25 17:19 | XMS_ITS ---
Author Organization [facility] Care Team Providers Care Hunting Sales Leader Name Role Phone Edwar Trujillo Unavailable Unavailable Jazmin Ross Unavailable Roula Golden Unavailable Unavailable Allergies and adverse reactions No Known Allergies Care Team Name Role Address Phone Organization Dates Edwar Trujillo [address], [address], [place], [address], [place] (Office[place] : [facility] 12/24/2023 - 12/27/2023 Jazmin Ross [address], [place], [address], [place]Office[place] : [facility] 12/24/2023 - 12/27/2023 Roula Golden [address], [place], [address], [place]Office): : [facility] 12/24/2023 - 12/27/2023 Immunizations Immunization Status Vaccine Details Vaccine Code CodeSystem Date Notes Influenza cancelled Influenza, split virus, trivalent, injectable, contains preservative 141 CVX created date: 12/25/2023 consent date: 12/25/2023 PPSV23 (Previous Pneumococcal Polysaccharide)Vac cine completed pneumococcal polysaccharide vaccine, 23 valent 33 CVX created date: 12/25/2023 administere d date: 08/07/2013 (COVID-19) [id number] Updated Pfizer Vaccine completed SARS-COV-2 (COVID-19) vaccine, mRNA, spike protein, LNP, preservative free, josue-sucrose, 30 mcg/0.3 mL dose 309 CVX created date: 12/26/2023 administere d date: 01/14/2023 (Pneumococcal) PPSV23- Polysaccharide 23-valent Vaccine completed pneumococcal polysaccharide vaccine, 23 valent 33 CVX created date: 12/26/2023 administere d date: 01/11/2018 Mental Status Section Date Assessment Total Score Description 12/26/2023 BIMS 15 cognitively int act CAM 0 No delirium ind icated PHQ-9 01 minimal depress ion Problems Problem # Description Date of onset Resolved Date Code CodeSystem Concern Status 1 ATHEROSCLEROTIC HEART DISEASE OF [place] CORONARY ARTERY WITHOUT ANGINA PECTORIS 12/24/[address] active 2 DEPENDENCE ON RENAL DIALYSIS 12/24/[address] active 3 END STAGE RENAL DISEASE 12/24/[address] active 4 HYPERLIPIDEMIA, UNSPECIFIED 12/24/[address] active 5 HYPERTENSIVE CHRONIC KIDNEY DISEASE WITH STAGE 5 CHRONIC KIDNEY DISEASE OR END STAGE RENAL DISEASE 12/24/[address] active 6 NONRHEUMATIC AORTIC (VALVE) STENOSIS 12/24/[address] active 7 OTHER IRON DEFICIENCY ANEMIAS 12/24/[address] active 8 OTHER SPECIFIED ARTHRITIS, UNSPECIFIED SITE 12/24/[address] active 9 PERIPROSTHETIC FRACTURE AROUND INTERNAL PROSTHETIC RIGHT HIP JOINT, SUBSEQUENT ENCOUNTER 12/24/[address] active 10 PRESENCE OF CARDIAC PACEMAKER 12/24/[address] active 11 PULMONARY HYPERTENSION, UNSPECIFIED 12/24/[address] active 12 TYPE 2 DIABETES MELLITUS WITHOUT COMPLICATIONS 12/24/[address] active 13 UNSPECIFIED PROTEIN-CALORIE MALNUTRITION 12/24/[address] active 14 UNSPECIFIED SYSTOLIC (CONGESTIVE) HEART FAILURE 12/24/[address] active Reason for Referral No Reasons for Referral Entered Social History Social History Observation Description Start Date End Date Code Code System Current Smoking Status Tobacco smoking consumption unknown 076887693 SNOMED CT Sex Assigned At Male 1940 09599-1 [facility] Gender Identity Sexual Orientation Vital Signs Code Code System Vitals Name Values and Units Timing Information 93257-4 [facility] Weight Dyxwb=228.2 Units=Lbs 02/2024 9279-1 [facility] Respiratory Rate Value=18.0 Units=/m in 12/26/2023 8462-4 [facility] Blood Pressure-Diastolic Value=55 Un its=mmHg 12/26/2023 8480-6 [facility] Blood Pressure-Systolic Lrgyk=530 Un its=mmHg 12/26/2023 8310-5 [facility] Body Temperature Value=98.1 Units= F 12/26/2023 8867-4 [facility] Heart rate Value=82.0 Units=/min 02/2024 62063-1 [facility] O2 % BldC Oximetry Value=95.0 Units= % 12/26/2023 12424-4 [facility] Pain Level Value=0.0 12/26/2023 8302-2 [facility] Height Value=62.0 Units=Inches 12/25/2023
== END 2024-12-25 13:56 | disposition home or self-care (01) ==
PROVIDERS: PCP Student in an Organized Health Care Education/Training Program; Visit Provider Student in an Organized Health Care Education/Training Program
DX: I12.0 Hypertensive chronic kidney disease with stage 5 chronic kidney disease or end stage renal disease (principal); I42.9 Cardiomyopathy, unspecified; I50.32 Chronic diastolic (congestive) heart failure; N18.6 End stage renal disease; Z95.0 Presence of cardiac pacemaker; I35.9 Nonrheumatic aortic valve disorder, unspecified; D63.8 Anemia in other chronic diseases classified elsewhere; E78.5 Hyperlipidemia, unspecified

== ENCOUNTER → 2024-12-25 13:18 | Outpatient (BNVA) | payer MEDICARE, SELFPAY | PROVIDERS: PCP Family Medicine; Visit Provider Student in an Organized Health Care Education/Training Program | DX: I13.2 Hypertensive heart and chronic kidney disease with heart failure and with stage 5 chronic kidney disease, or end stage renal disease (principal); N18.6 End stage renal disease; I50.32 Chronic diastolic (congestive) heart failure; D63.8 Anemia in other chronic diseases classified elsewhere; I35.9 Nonrheumatic aortic valve disorder, unspecified; I42.9 Cardiomyopathy, unspecified; E78.5 Hyperlipidemia, unspecified; Z95.0 Presence of cardiac pacemaker | CPT/HCPCS: 96127; 99202 ==

== ENCOUNTER 2025-01-13 08:48 | Outpatient (AMB) | payer MEDICARE, SELFPAY ==
--- NOTE | 2025-01-13 09:03 | A.OFFVIS_ITS ---
Vital Signs 01/13/25 09:04 Height 5 ft 5 in Weight 160 lb BMI 26.6 Intake Visit Reasons: RAFA re-ref for fistula bleeding Intake Note: RAFA re-referral for fistula bleeding. Of note, pt states he is changing dialysis days to Sunday, , Sunday @ [facility] because he recently moved, starting this week. Pt states the fistula does not bleed at every visit. Fistula is on the Left UE Senior Animal Trainer Required: No Accompanied by: Self / Same As Patient Allergies cephalexin (From KEFLEX) Allergy (Severe, Verified 01/13/25 09:07) ANGIO EDEMA lisinopril (LISINOPRIL) Allergy (Severe, Verified 01/13/25 09:07) FACIAL EDEMA simvastatin Allergy (Severe, Verified 01/13/25 09:07) renal insufficiency amlodipine Allergy (Mild, Verified 01/13/25 09:07) renal insuff in combo w/ statin rx HPI HPI RAFA re-ref for fistula bleeding: Details: The patient is an 84-year-old male presenting for follow-up of a poorly functioning arteriovenous fistula. The fistula was originally placed on May 24, 2020, and the patient underwent an outflow tract plasty on March 18, 2024, to address issues with the fistula's function. The patient reports occasional bleeding at the fistula site, which prompted recommendations for follow-up care. The patient is currently on a dialysis regimen, initially scheduled for Sunday, Sunday, and Sunday, but has recently switched to Sunday, , and at a new dialysis center in [facility]. He has moved to [place] and started dialysis at the new center last week. The patient has a history of diabetes mellitus, although he reports an A1c of 4.7 and is not currently on any medication for diabetes management. REPLACED BY [facility] Medical History Hyperlipidemia Avascular necrosis of bone of right hip Presence of arterial-venous shunt (for dialysis) History of transfusion of packed red blood cells ESRD (end stage renal disease) on dialysis Normally functioning cardiac pacemaker present Essential hypertension Valvular heart disease Chronic heart failure with preserved ejection fraction (HFpEF) Pulmonary hypertension Arthritis Anemia NAVA (dyspnea on exertion) Rhabdomyolysis due to statin therapy Chronic kidney disease Diabetes Atherosclerotic cardiovascular disease Aortic valvular disease Pacemaker CHF (congestive heart failure) HTN (hypertension) Surgical History 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, 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) History of cardiac catheterization (~08/2020) History of tonsillectomy Status cardiac pacemaker S/P excision of lipoma Hx of colonoscopy Family History Father Stroke Mother Stroke Diabetes Social History Household Members: Spouse Housing: Apartment Are you a primary career placement specialist to a significant other at home: No Do you presently have visiting nurse or other home services: Yes (elder services, meals on wheels) Alcohol intake: current Alcohol intake frequency: former alcohol drinker Alcohol type: hard liquor Patient Tobacco Use Status: Never used Tobacco e-Cigarette/Vaping Use: Never Used Advance Directives Date on File: 04/26/20 service: Yes Current occupational status: retired Current occupation: rt handed Review of Systems Const All systems reviewed & are unremarkable except as noted in HPI and below Reports no additional complaints ENT Reports Normal hearing present Card Denies chest pain, Denies chest pain at rest, Denies chest pain with activity and Denies pedal edema Resp Denies cough GI Denies abdominal pain Musc Denies abnormal gait, Denies muscle cramps and Denies radiating pain into limb Skin/Breast Denies skin ulcer and Denies wounds Neuro Reports Normal hearing present and Denies abnormal gait Psych Reports no additional complaints Physical Exam Vital Signs: BMI result Body Mass Index 26.6 Const General: cooperative, healthy appearing and comfortable Orientation/consciousness: oriented to person, oriented to place and oriented to time HEENT Head: Yes normal to inspection Neck Neck: Yes normal visual inspection Carotids: no bruits Chest Chest palpation & inspection: normal inspection of the chest Resp Effort & Inspection: normal respiratory effort and able to speak in complete sentences Auscultation: clear to auscultation bilaterally, no crackles, no rales, no rhonchi and no wheezes Cardio Rate: regular rate Rhythm: regular rhythm Heart sounds: S1 normal heart sound present and S2 normal heart sound present Bruits: no carotid bruits Peripheral pulses: Peripheral pulses 2+ throughout GI Inspection: Yes normal to inspection Skin Wounds: no wounds Hair: normal Neuro General: oriented to person, oriented to place and oriented to time Cranial nerves: Yes CN's II-XII intact bilaterally and Yes Normal hearing present Cognition (Neuro): normal cognition Motor exam (neuro): 5/5 motor strength present throughout Extrem Other: Left upper extremity fistula pulsatile flow General: No clubbing, No cyanosis and No edema Psych Appearance: grossly normal Mental Status: mental status grossly normal Speech and movement: Normal speech and movement present Assessment & Plan Assessment & Plan (1) ESRD (end stage renal disease) on dialysis: Comment: 05/24/2020 - left upper extremity brachiocephalic fistula creation 03/18/2024 - outflow tract plasty (6X40 DCB then 7X40) Code(s): N18.6 - End stage renal disease; Z99.2 - Dependence on renal dialysis Category: Medical Plan: In short patient has left upper extremity fistula with increased bleeding. He will require left upper extremity fistulogram with possible plasty and stenting. Risks benefits complications were discussed in detail with the patient. He understood and consented. We will schedule for tomorrow morning. Thank you for allowing us to assist in his care. If there are any questions or concerns please do not hesitate to contact us. Coding Level of Care Code Est Pt Level 4 (65153) Diagnoses ESRD (end stage renal disease) on dialysis N18.6; Z99.2
[2025-01-13 09:04] VITALS: BMI 26.6
--- OUTSIDE RECORDS SUMMARY | 2025-01-13 09:20 | XMS_ITS | Encounter Summary ---
Author Organization [facility] Address [address] [facility] [address] [place] [address] Phone Care Team Providers Care Bundle Collector Name Role Phone Edwar Trujillo MD Primary Care Provider [phone] Encounter Details Date Type Department Care Team (Late st Contact Info) Description 06/04/2020 Orders Only [facility] [address] [place] [phone] Neal Burgess MD Stage 5 chronic kidney [...] failure documented in this encounter Care Teams Bundle Collector Relationship Specialty Start Date End Date Edwar Trjuillo MD [address] [place] [address] [address] [place] PCP - General 04/26/20 documented as of this encounter
--- OUTSIDE RECORDS SUMMARY | 2025-01-13 09:20 | XMS_ITS | Encounter Summary ---
Author Organization [facility] Address [address] [place] [address] Phone Care Team Providers Care Supervisor Metal Fabricating Name Role Phone Edwar Trujillo MD Primary Care Provider [phone] Reason for Visit * Reason Comments Med Refill Encounter Details Date Type Department Care Team (Late st Contact Info) Description 09/06/2022 Refill [facility] [address] [place] [address] Anirudh Tinoco MD Social History [...] on filedocumented in this encounter Care Teams Supervisor Metal Fabricating Relationship Specialty Start Date End Date Edwar Trujillo MD [address] [place] [address] [address] [place], [place] PCP - General 04/26/20 documented as of this encounter
--- OUTSIDE RECORDS SUMMARY | 2025-01-13 09:20 | XMS_ITS | Patient Health Record ---
Author Organization [facility] Address [address] [place] [phone] Care Team Providers Care Fire Sprinkler Installer Name Role Phone Ronnie (RETIRED) Edwar OVALLE Primary Care Provider Unavailable Deven Mccallum Unavailable [phone] Allergies Allergen (clinical drug ingredient) Drug/Non Drug [...] W/U Status Risk Notes Problem Screening colonoscopy (670221723) Encounter for screening colonoscopy (Z12.11) Active confirmed Problem 208522467 Encounter for screening for malignant neoplasm of colon (Z12.11) Active confirmed Problem 328088408 History of adenomatous polyp of colon (Z86.010) Active confirmed Problem Polyp of colon (disorder) (74757135) Colon polyps (K63.5) Active confirmed Problem Tubular adenoma of colon (836909636) Tubular adenoma of colon (D12.6) Active confirmed Problem 76112661 Heme + stool (R19.5) Active confirmed Problem History of polyp of colon (situation) (640584979) Hx of colonic polyps (Z86.010) Active confirmed Problem Anemia (686579485) Anemia (D64.9) Active confirmed Problem Gallstones (170872257) Gallstones (K80.20) Active confirmed Problem 779352635 Long-term use of aspirin therapy (Z79.82) Active confirmed Problem 790279082 Anemia, unspecified type (D64.9) Active confirmed Problem 278517315 Adenoma of transverse colon (D12.3) Active confirmed Problem 41396697 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 Vital Signs Blood pressure diastolic 00 mm Hg 02/26/2024 Height 5 ft 5 in in 02/26/2024 Blood pressure systolic 00 mm Hg 02/26/2024 Weight 148 lbs 02/26/2024 BMI 24.63 kg/m2 02/26/2024 Encounters Encounter Location Date Provider Diagnosis [facility] [address] [place] [phone] 02/26/2024 Deven Mccallum Anemia, unspecified type D64.9 [...] Start Date Coverage End Date MEDICARE OF [facility] [address] [place] [address] [phone] [id number] JONA FATOU Self - patient is the [...] Pacemaker 02/24/14 Right shoulder cyst removal- Dr. Mirelse 11/04/2019 AV Fistula x [address] Moe - 05/2020 Right hip replacement 11/2023 Femur fracture 1 week after above sugery 11/2023
--- OUTSIDE RECORDS SUMMARY | 2025-01-13 09:20 | XMS_ITS | Clinical Summary ---
Author Organization [facility] Address [address] [place] [phone] Phone Care Team Providers Care Varying Exceptionalities Teacher Name Role Phone Edwar Trujillo MD Primary Care Provider [phone] Allergies Active Allergy Reactions Criticality Noted Date [...] Encounters Date Type Department Care Team Description 01/05/2025 Treatment [facility] [address] [phone] Amandeep Gonzalez MD End stage renal disease; Dependence on renal dialysis 12/31/2024 Treatment [facility] [address] [phone] Amandeep Gonzalez MD End stage renal disease; Dependence on renal dialysis 12/24/2024 Treatment [facility] [address] [phone] Amandeep Gonzalez MD End stage renal disease; Dependence on renal dialysis 12/17/2024 Treatment [facility] [address] [phone] Amandeep Gonzalez MD End stage renal disease; Dependence on renal dialysis 12/03/2024 Treatment [facility] [address] [phone] Amandeep Gonzalez MD End stage renal disease; Dependence on renal dialysis 11/26/2024 Treatment [facility] [address] [phone] Amandeep Gonzalez MD End stage renal disease; Dependence on renal dialysis 11/19/2024 Treatment [facility] [address] [phone] Amandeep Gonzalez MD End stage renal disease; Dependence on renal dialysis 11/14/2024 Treatment [facility] [address] [phone] Amandeep Gonzalez MD End stage renal disease; Dependence on renal dialysis 11/05/2024 Treatment [facility] [address] [phone] Amandeep Gonzalez MD End stage renal disease; Dependence on renal dialysis 10/29/2024 Treatment [facility] [address] [phone] Amandeep Gonzalez MD End stage renal disease; Dependence on renal dialysis 10/22/2024 Treatment [facility] [address] [phone] Amandeep Gonzalez MD End stage renal disease; Dependence on renal dialysis 10/15/2024 Orders Only [facility] [address] [phone] Amandeep Gonzalez MD 10/15/2024 Treatment [facility] [address] [phone] Amandeep Gonzalez MD End stage renal disease; [...] Priority Date/Time Associated Diagnosis Comments HEMOGLOBIN Routine 01/07/2025 3:00 AM EDT HEMOGLOBIN Routine 12/31/2024 3:00 AM EDT CBC AND DIFFERENTIAL Routine 12/17/2024 3:00 AM [...] AND DIFFERENTIAL Routine 10/15/2024 3:00 AM EDT from Last 3 Months Results * (ABNORMAL) Hemoglobin (01/07/2025 3:00 AM EDT) Only the most recent of5 resultswithin the time period is included. Pathologist [facility] Hgb 11.2(L) 13.7 - 17.5 g/dL [facility] Hemoglobin x 3 33.6(L) 41.1 - 52.5 g/dL [facility] 01/07/2025 3:00 AM EDT 01/08/2025 2:24 PM EDT us Amandeep Gonzalez MD LAB BLOOD ORDERABLES Final Resu lt Performing Organization Address City/[facility]/ZIP Co de Phone Number [facility]PS [facility] [address] [place] [address] * LIH (12/17/2024 3:00 AM EDT) Only the most recent of3 resultswithin the time period is included. [facility] Lipemia Normal Normal [facility] Icterus Normal Normal [facility] Hemolysis Normal Normal [facility] 12/17/2024 3:00 AM EDT 12/18/2024 5:15 PM EDT us Amandeep Gonzalez MD LAB [id number] LICITED RESULTS Final Result Performing Organization Address City/[facility]/ZIP Co de Phone Number [facility] [address] [place] [address] * (ABNORMAL) Kt/V Natural Log, URR (12/17/2024 3:00 AM EDT) Only the most recent of3 resultswithin the time period is included. Pathologist [facility] Treatment Time 197 min [facility] Pre-Weight, lb [...] 5:15 PM EDT Amandeep Gonzalez MD LAB [id number] LICITED RESULTS Final Result Performing Organization Address [facility] de Phone Number [facility] [address] [place] [address] * (ABNORMAL) Calcium Phosphorus Product, Adjusted (12/17/2024 [...] 5:15 PM EDT Amandeep Gonzalez MD LAB [id number] LICITED RESULTS Final Result Performing Organization Address [facility] de Phone Number [facility] [address] [place] [address] * BUN/CREATININE RATIO (12/17/2024 3:00 AM EDT) Only the most recent of3 resultswithin the time period is included. [facility] BUN/Creatinine Ratio 9.9 <=23.0 [facility] 12/17/2024 3:00 AM EDT 12/18/2024 5:15 PM EDT us Amandeep Gonzalez MD LAB [id number] LICITED RESULTS Final Result Performing Organization Address City/[facility] Co de Phone Number [facility] [address] [place] [address] * (ABNORMAL) TSAT (12/17/2024 3:00 AM EDT) Only the most recent of3 resultswithin the time period is included. [facility] Iron 76 65 - 175 ug/dL [facility] Transferrin 146(L) 215 - 365 mg/dL [facility] TIBC 204(L) 211 - 406 ug/dL [facility] Iron Saturation (TSat) 37 22 - 52 % [facility] 12/17/2024 3:00 AM EDT 12/18/2024 5:15 PM EDT us Amandeep Gonzalez MD LAB BLOOD ORDERABLES Final Resu lt Performing Organization Address [facility] de Phone Number [facility] [address] [place] [address] * (ABNORMAL) CBC and Differential (12/17/2024 3:00 AM EDT) Only the most recent of3 resultswithin the time period is included. [facility] DIFFERENTIAL MANUAL, 2 Not Indicated [facility] White [...] 3:00 AM EDT 12/18/2024 7:37 PM EDT Amandeep Gonzalez MD LAB BLOOD ORDERABLES Final Resu lt Performing Organization Address City/[facility] Co de Phone Number [facility] [address] [place] [address] * ALT (12/17/2024 3:00 AM EDT) Only the most recent of3 resultswithin the time period is included. ALT (SGPT) 34 10 - 49 U/L [facility] 12/17/2024 3:00 AM EDT 12/18/2024 5:15 PM EDT Amandeep Gonzalez MD LAB BLOOD ORDERABLES Final Resu lt Performing Organization Address City/[facility]/ZIP Co de Phone Number [facility] [address] [place] [address] * AST (12/17/2024 3:00 AM EDT) Only the most recent of3 resultswithin the time period is included. AST (SGOT) 21 <34 U/L [facility] 12/17/2024 3:00 AM EDT 12/18/2024 5:15 PM EDT us Amandeep Gonzalez MD LAB BLOOD ORDERABLES Final Resu lt Performing Organization Address [facility] Co de Phone Number [facility] [address] [place] [address] * Protein, total (12/17/2024 3:00 AM EDT) Only the most recent of3 resultswithin the time period is included. Total Protein 6.6 6.4 - 8.9 g/dL [facility] 12/17/2024 3:00 AM EDT 12/18/2024 5:15 PM EDT us Amandeep Gonzalez MD LAB BLOOD ORDERABLES Final Resu lt Performing Organization Address [facility] de Phone Number [facility] [address] [place] [address] * (ABNORMAL) Alkaline phosphatase (12/17/2024 3:00 AM EDT) Only the most recent of3 resultswithin the time period is included. Alkaline Phosphatase 136(H) 46 - 116 U/L [facility] 12/17/2024 3:00 AM EDT 12/18/2024 5:15 PM EDT us Amandeep Gonzalez MD LAB BLOOD ORDERABLES Final Resu lt Performing Organization Address [facility] de Phone Number [facility] [address] [place] [address] * Magnesium (12/17/2024 3:00 AM EDT) Only the most recent of3 resultswithin the time period is included. Magnesium 2.3 1.9 - 2.7 mg/dL [facility] 12/17/2024 3:00 AM EDT 12/18/2024 5:15 PM EDT us Amandeep Gonzalez MD LAB BLOOD ORDERABLES Final Resu lt Performing Organization Address [facility]/ZIP Co de Phone Number [facility] [address] [place] [address] * (ABNORMAL) Lactate dehydrogenase (12/17/2024 3:00 AM EDT) Only the most recent of3 resultswithin the time period is included. LDH 303(H) 120 - 246 U/L [facility] 12/17/2024 3:00 AM EDT 12/18/2024 5:15 PM EDT us Amandeep Gonzalez MD LAB BLOOD ORDERABLES Final Resu lt Performing Organization Address [facility] Co de Phone Number [facility] [address] [place] [address] * Glucose, random (12/17/2024 3:00 AM EDT) Only the most recent of3 resultswithin the time period is included. Glucose 92 70 - 99 mg/dL [facility] Comment: ADA guidelines outline the following fasting glucose ranges: Normal: <100 Prediabetes: 100-125 Diabetes: >125 12/17/2024 3:00 AM EDT 12/18/2024 5:15 PM EDT us Amandeep Gonzalez MD LAB BLOOD ORDERABLES Final Resu lt Performing Organization Address [facility] Co de Phone Number [facility] [address] [place] [address] * (ABNORMAL) Ferritin (12/17/2024 3:00 AM EDT) Only the most recent of3 resultswithin the time period is included. Ferritin 1,634(H) 22 - 322 ng/mL [facility] 12/17/2024 3:00 AM EDT 12/18/2024 5:15 PM EDT us Amandeep Gonzalez MD LAB BLOOD ORDERABLES Final Resu lt Performing Organization Address [facility] Co de Phone Number [facility] [address] [place] [address] * (ABNORMAL) Creatinine, serum (12/17/2024 3:00 AM EDT) Only the most recent of3 resultswithin the time period is included. Creatinine 7.46(H) 0.70 - 1.30 mg/dL [facility] 12/17/2024 3:00 AM EDT 12/18/2024 5:15 PM EDT us Amandeep Gonzalez MD LAB BLOOD ORDERABLES Final Resu lt Performing Organization Address [facility] de Phone Number [facility] [address] [place] [address] * Bilirubin, total (12/17/2024 3:00 AM EDT) Only the most recent of3 resultswithin the time period is included. Total Bilirubin 0.3 0.3 - 1.2 mg/dL [facility] 12/17/2024 3:00 AM EDT 12/18/2024 5:15 PM EDT us Amandeep Gonzalez MD LAB BLOOD ORDERABLES Final Resu lt Performing Organization Address [facility] de Phone Number [facility] [address] [place] [address] * (ABNORMAL) Electrolyte panel (12/17/2024 3:00 AM [...] ORDERABLES Final Resu lt Performing Organization Address [facility] de Phone Number [facility] [address] [place] [address] * Vitamin D 25 Hydroxy (10/22/2024 3:00 AM EDT) Vitamin D, 25-Hydroxy 66 30 - 100 ng/mL [facility] Comment: Status Adult Pediatric Deficient: <20 <15 Insufficient: 20-29 15-19 Sufficient: 30-100 20-100 10/22/2024 3:00 AM EDT 10/23/2024 1:30 PM EDT us Amandeep Gonzalez MD LAB BLOOD ORDERABLES Final Resu lt Performing Organization Address [facility] de Phone Number [facility] [address] [place] [address] * Hepatitis B Surface Ag w/Reflex Confirmation (10/15/2024 3:00 AM EDT) Hep B Surface Antigen Negative Negative [facility] 10/15/2024 3:00 AM EDT 10/16/2024 1:30 PM EDT us Amandeep Gonzalez MD LAB BLOOD ORDERABLES Final Resu lt Performing Organization Address [facility] de Phone Number [facility] [address] [place] [address] * PTH, Intact (10/15/2024 3:00 AM EDT) PTH, Intact 262 160 - 721 pg/mL [facility] Comment: Suggested (KDIGO) ESRD maintenance range is two to nine times the upper normal limit (80.1 pg/mL) for the laboratory. 10/15/2024 3:00 AM EDT 10/16/2024 1:30 PM EDT us Amandeep Gonzalez MD LAB BLOOD ORDERABLES Final Resu lt Performing Organization Address [facility] de Phone Number [facility] [address] [place] [address] * Hemoglobin A1c (10/15/2024 3:00 AM EDT) Hemoglobin A1C 4.7 <5.7 % [facility] Comment: Methodology: Enzymatic Normal: <5.7% Prediabetes: 5.7-6.4% Diabetes: >6.4% Diabetic Glucose Control Evaluation: Therapeutic action suggested at >8.0% ADA recommends a glycemic goal of <7.0% 10/15/2024 3:00 AM EDT 10/16/2024 12:53 PM EDT Amandeep Gonzalez MD LAB BLOOD ORDERABLES Final Resu lt Performing Organization Address [facility] Co de Phone Number [facility] [address] [place] [address] * (ABNORMAL) Lipid panel (10/15/2024 3:00 AM EDT) Cholesterol 102 mg/dL [facility] Comment: Optimal: <200 Borderline: 200-239 High Risk: >239 Triglycerides 86 mg/dL [facility] Comment: Optimal: <150 Borderline: 150-200 High Risk: >200 HDL 39(L) mg/dL [facility] Comment: Optimal: >59 Borderline: 40-59 High Risk: <40 LDL-Calc 46 mg/dL [facility] Comment: Optimal: <100 Borderline: 100-159 High Risk: >159 VLDL Cholesterol Bhaart 17 mg/dL [facility] Comment: Optimal: <30 Borderline: 30-40 High Risk: >40 Chol/HDL Ratio 2.6 [facility] Comment: Optimal: <3.3 High Risk: >6.2 10/15/2024 3:00 AM EDT 10/16/2024 1:30 PM EDT Amandeep Gonzalez MD LAB BLOOD ORDERABLES Final Resu lt Performing Organization Address City/[facility] Co de Phone Number [facility] [address] [place] [address] from Last 3 Months Insurance Medicare Medicare Care Teams Varying Exceptionalities Teacher Relationship Specialty Start Date End Date Edwar Trujillo MD [address] [facility] [address] ERICA LEDESMA PCP - General 04/26/20
== END 2025-01-13 09:43 | disposition home or self-care (01) ==
PROVIDERS: PCP Student in an Organized Health Care Education/Training Program; Visit Provider Surgery Vascular Surgery
DX: N18.6 End stage renal disease (principal); Z99.2 Dependence on renal dialysis
CPT/HCPCS: 99214

== ENCOUNTER → 2025-01-13 08:48 | Outpatient (BNVA) | payer MEDICARE, SELFPAY | PROVIDERS: PCP Student in an Organized Health Care Education/Training Program; Visit Provider Surgery Vascular Surgery | DX: N18.6 End stage renal disease (principal); Z99.2 Dependence on renal dialysis | CPT/HCPCS: 99212 ==

== ENCOUNTER 2025-01-14 05:35 | Day surgery (SDC) | payer MEDICARE, SELFPAY ==
[2025-01-14] VITALS (7 sets, daily range): BP systolic 125–159; BP diastolic 41–98; PULSE 52–57; RESP 13–18; TEMP 36.3–36.7; O2SAT 98–100; BMI 27.1; BMI 26.6
--- NOTE | 2025-01-14 06:21 | PC.NURSE ---
pt had pacemaker battery changed at [facility] last dressing old staining denies pain left shunt +bruit/thrill
[2025-01-14 06:35] LABS: MANUAL DIFF FLAG NO
[2025-01-14 06:36] LABS: Hematocrit 29.9 % (42.0-52.0); Hemoglobin 10.1 g/dl (14.0-18.0); Imm Gran Abs Auto 0.03 X10*3/uL (0.00-0.03); Imm Gran Pct Auto 0.6 % (0.0-0.4); Lymphocytes Absolute Auto 0.5 X10*3/uL (1.2-4.9); Mean Corpuscular HGB Conc 33.8 g/dl (31.0-36.0); Mean Corpuscular Hemoglobin 32.9 pg (27.0-33.0); Mean Corpuscular Volume 97.4 fL (80.0-98.0); NRBC Abs Auto 0.000 X10*3/uL (0.0-0.012); NRBC Pct Auto 0.0 /100WBC (0.0-0.2); Red Blood Count 3.07 X10*6/uL (4.60-5.80); White Blood Count 4.9 X10*3/uL (4.8-10.8)
[2025-01-14 06:39] LABS: Platelet Count 92 X10*3/uL (160-400)
[2025-01-14 07:02] LABS: Anion Gap 19 (12-20); Blood Urea Nitrogen 95 mg/dL (9-16); Calcium 8.1 mg/dL (8.4-10.2); Carbon Dioxide 27 mmol/L (22-29); Chloride 101 mmol/L (96-108); Creatinine Clr Calc Pharmacy 5.9; Estimated Glomerular Filt Rate 6; Potassium 4.5 mmol/L (3.3-5.1); Sodium 142 mmol/L (135-145)
--- NOTE | 2025-01-14 07:38 | PC.NURSE ---
dr sterling aware of critical lab valves okay to proceed
[2025-01-14] MEDS: Heparin Sodium,Porcine 10,000 UNIT/10 ML VIAL 3000 UNIT IVPUSH (08:11)
--- NOTE | 2025-01-14 09:27 | P.OP_ITS ---
Operative Note Operative Note Date of Service: 01/14/25 Narrative: Angiogram report from [facility] Preoperative diagnosis: End-stage renal disease with poorly functioning fistula Postoperative diagnosis: Same Procedure: 1. Ultrasound-guided left upper extremity fistula 2. Fistulogram 3. Plasty of venous outflow track Surgeon:Shimon Moe M.D., FACS, RPVI Bone Drier Operator:None Anesthesia: Local only Specimens:none Drains:none Estimated blood loss: Less than 10 ml Radiation Dose: 31.4 mGy Implant: None Indications: 84-year-old gentleman with prior left upper extremity brachiocephalic fistula placement. Is a central stenotic lesion. Of note he has had a pacemaker placement this past . The patient has signed the informed consent after reviewing risks, complications, benefits, and alternatives previously discussed with the patient. The patient was given the opportunity to ask any additional questions or voice any concerns. All questions were answered to the patient's satisfaction. Procedure in detail: Patient was brought to the angiography suite prior to which a time-out was called for patient identification and site verification. Left upper extremity was prepped and draped in standard surgical fashion. Under ultrasound guidance fistula was accessed using micropuncture needle wire and subsequently precision 5 [place] sheath. Through this fistulogram was then undertaken. We did recognize the central stenotic lesion. At this time 3000 units of systemic heparin was administered. We placed a guidewire advantage and brought this to the central venous system up into the superior vena cava. Once this was accomplished we exchanged out for 7 [place] sheath. In the central portion of the cephalic vein outflow tract. There was a high-grade stenosis. This was initially plasty did with a 6 x 30 balloon. There was still residual stenosis encountered. We followed this up with a 7 x 40 drug coated balloon. This was brought into position in under 3 minutes and insufflated for a total of 3 minutes in duration. Completion fistulogram demonstrated excellent result with good flow through the outflow tract. Nylon suture was used as a pursestring suture. Patient tolerated the procedure well. Returned to recovery with stable vitals. Interpretation of films: 1. Ultrasound demonstrates appropriate fistula access site. Vessel was patent with minimal stenosis. Needle entry was visualized. Image of ultrasound was saved. 2. Fistulogram demonstrated outflow tract venous stenosis in the middle of the cephalic vein of the upper portion of the arm. 3. Completion imaging demonstrated good flow through the outflow tract. Conclusion: 1. Successful venous outflow plasty 2. Anticoagulation status: No change This note is constructed using voice recognition software. While every effort has been made to ensure accuracy, electroplater errors may have been included. Thank you for allowing me to participate in the care of your patient. Yours sincerely, Shimon Moe MD, FACS, R.P.V.I.
== END 2025-01-14 09:46 | disposition home or self-care (01) ==
PROVIDERS: PCP Family Medicine; Visit Provider Surgery Vascular Surgery
DX: I12.0 Hypertensive chronic kidney disease with stage 5 chronic kidney disease or end stage renal disease (principal); E11.22 Type 2 diabetes mellitus with diabetic chronic kidney disease; I13.2 Hypertensive heart and chronic kidney disease with heart failure and with stage 5 chronic kidney disease, or end stage renal disease; I50.32 Chronic diastolic (congestive) heart failure; N18.6 End stage renal disease; Z99.2 Dependence on renal dialysis
CPT/HCPCS: 36415; 36902; 76937; 80048; 85025; C1725; C1769; C1887; C1894; C2623; J1644; J2250; J3010; Q9967

== ENCOUNTER → 2025-01-14 05:35 | Outpatient (BNV) | payer MEDICARE, SELFPAY | PROVIDERS: PCP Family Medicine; Visit Provider Surgery Vascular Surgery | DX: N18.6 End stage renal disease (principal); T82.510A Breakdown (mechanical) of surgically created arteriovenous fistula, initial encounter | CPT/HCPCS: 36902; 36907 ==

== ENCOUNTER 2025-01-27 08:49 | Outpatient (AMB) | payer MEDICARE, SELFPAY ==
--- NOTE | 2025-01-27 08:57 | A.OFFVIS_ITS ---
Vital Signs 01/27/25 08:59 Height 5 ft 5 in Weight 160 lb BMI 26.6 Intake Visit Reasons: follow up L arm Fistulagram 01/14/25 Intake Note: 2 wk follow up Left UE fistulagram 01/14/25. Pt states no pain, states that the dialysis nurses removed some sutures from site but left 1 suture in. Pt goes to [facility] Sunday, and Sunday. Condenser Tube Tender Required: No Accompanied by: Self / Same As Patient Allergies cephalexin (From KEFLEX) Allergy (Severe, Verified 01/27/25 09:01) ANGIO EDEMA lisinopril (LISINOPRIL) Allergy (Severe, Verified 01/27/25 09:01) FACIAL EDEMA simvastatin Allergy (Severe, Verified 01/27/25 09:01) renal insufficiency amlodipine Allergy (Mild, Verified 01/27/25 09:01) renal insuff in combo w/ statin rx HPI HPI follow up L arm Fistulagram 01/14/25: Details: The patient is an 84-year-old male presenting with a follow-up for the left brachiosophilic fistula. The patient has a central stenotic lesion in the fistula, which has been monitored over time. The patient reports that the arm is functioning well with no bleeding issues. The nurses removed the stitches post-dialysis, although one stitch remains inaccessible. The patient underwent two fistulograms, one in March and another recently, to assess the condition of the fistula. The fistula has been functioning well for four and a half years, and the patient is advised to return for a follow-up in six months. [facility] Medical History Encounter for pacemaker at end of battery life Hyperlipidemia Avascular necrosis of bone of right hip Presence of arterial-venous shunt (for dialysis) History of transfusion of packed red blood cells ESRD (end stage renal disease) on dialysis Normally functioning cardiac pacemaker present Essential hypertension Valvular heart disease Chronic heart failure with preserved ejection fraction (HFpEF) Pulmonary hypertension Arthritis Anemia NAVA (dyspnea on exertion) Rhabdomyolysis due to statin therapy Chronic kidney disease Diabetes Atherosclerotic cardiovascular disease Aortic valvular disease Pacemaker CHF (congestive heart failure) HTN (hypertension) Surgical History 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, 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) History of cardiac catheterization (~08/2020) History of tonsillectomy Status cardiac pacemaker S/P excision of lipoma Hx of colonoscopy Family History Father Stroke Mother Stroke Diabetes Social History Household Members: Spouse Housing: Apartment Are you a primary geriatric personal care aide to a significant other at home: No Do you presently have visiting nurse or other home services: Yes (el[employer] se rvices, meals on wheels) Alcohol intake: current Alcohol intake frequency: former alcohol drinker Alcohol type: hard liquor Patient Tobacco Use Status: Never used Tobacco e-Cigarette/Vaping Use: Never Used Advance Directives Date on File: 04/26/20 service: Yes Current occupational status: retired Current occupation: rt handed Review of Systems Const All systems reviewed & are unremarkable except as noted in HPI and below Reports no additional complaints ENT Reports Normal hearing present Card Denies chest pain, Denies chest pain at rest, Denies chest pain with activity and Denies pedal edema Resp Denies cough GI Denies abdominal pain Musc Denies abnormal gait, Denies muscle cramps and Denies radiating pain into limb Skin/Breast Denies skin ulcer and Denies wounds Neuro Reports Normal hearing present and Denies abnormal gait Psych Reports no additional complaints Physical Exam Vital Signs: BMI result Body Mass Index 26.6 Const General: cooperative, healthy appearing and comfortable Orientation/consciousness: oriented to person, oriented to place and oriented to time HEENT Head: Yes normal to inspection Neck Neck: Yes normal visual inspection Carotids: no bruits Chest Chest palpation & inspection: normal inspection of the chest Resp Effort & Inspection: normal respiratory effort and able to speak in complete sentences Auscultation: clear to auscultation bilaterally, no crackles, no rales, no rhonchi and no wheezes Cardio Rate: regular rate Rhythm: regular rhythm Heart sounds: S1 normal heart sound present and S2 normal heart sound present Bruits: no carotid bruits Peripheral pulses: Peripheral pulses 2+ throughout GI Inspection: Yes normal to inspection Skin Wounds: no wounds Hair: normal Neuro General: oriented to person, oriented to place and oriented to time Cranial nerves: Yes CN's II-XII intact bilaterally and Yes Normal hearing present Cognition (Neuro): normal cognition Motor exam (neuro): 5/5 motor strength present throughout Extrem Other: Left upper extremity excellent thrill and bruit over fistula General: No clubbing, No cyanosis and No edema Psych Appearance: grossly normal Mental Status: mental status grossly normal Speech and movement: Normal speech and movement present Assessment & Plan Assessment & Plan (1) ESRD (end stage renal disease) on dialysis: Comment: 05/24/2020 - left upper extremity brachiocephalic fistula creation 03/18/2024 - outflow tract plasty (6X40 DCB then 7X40) 01/14/2025 - outflow tract plasty (7x40 DCB) Code(s): N18.6 - End stage renal disease; Z99.2 - Dependence on renal dialysis Category: Medical Plan: I discussed with the patient the current status of his left brachiosophilic fistula, which is functioning well without bleeding issues. We reviewed the results of the recent fistulograms and agreed on a follow-up in six months to monitor the condition. Plan Patient was informed and verbally consented to the use of an ambient scribe for clinic note documentation during this visit. Patient Instructions: - Continue monitoring the left arm for any changes or complications. - Return for a follow-up appointment in six months. Coding Level of Care Code Est Pt Level 3 (93363) Diagnoses ESRD (end stage renal disease) on dialysis N18.6; Z99.2
[2025-01-27 08:59] VITALS: BMI 26.6
--- OUTSIDE RECORDS SUMMARY | 2025-01-27 09:22 | XMS_ITS | Patient Health Record ---
Author Organization [facility] Address [address] [place] [id number] Care Team Providers Care Hedge Fund Principal Name Role Phone Ronnie (RETIRED) Edwar OVALLE Primary Care Provider Unavailable Deven Mccallum Unavailable [phone] Allergies Allergen (clinical drug ingredient) Drug/Non Drug [...] 25 MG 1 tablet Orally Once a day; Duration: 30 day(s) Active Coreg 6.25 MG 1 tablet with food O rally Twice a day; Duration: 30 day(s) Active Furosemide 40 1 tab [...] W/U Status Risk Notes Problem Screening colonoscopy (757189630) Encounter for screening colonoscopy (Z12.11) Active confirmed Problem Screening for malignant neoplasm of colon (795042035) Encounter for screening for malignant neoplasm of colon (Z12.11) Active confirmed Problem History of adenomatous polyp of colon (421589898) History of adenomatous polyp of colon (Z86.010) Active confirmed Problem Polyp of colon (disorder) (41693191) Colon polyps (K63.5) Active confirmed Problem Tubular adenoma of colon (522668766) Tubular adenoma of colon (D12.6) Active confirmed Problem Abnormal feces (806179526) Heme + stool (R19.5) Active confirmed Problem History of polyp of colon (situation) (127433757) Hx of colonic polyps (Z86.010) Active confirmed Problem Anemia (914783817) Anemia (D64.9) Active confirmed Problem Gallstones (557430266) Gallstones (K80.20) Active confirmed Problem Long-term current use of antiplatelet drug (054226604792465 ) Long-term use of aspirin therapy (Z79.82) Active confirmed Problem Anemia (866854456) Anemia, unspecified type (D64.9) Active confirmed Problem Adenoma of transverse colon (848915350) Adenoma of transverse colon (D12.3) Active confirmed Problem Benign neoplasm of colon (72133682) 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 Vital Signs Blood pressure diastolic 00 mm Hg 02/26/2024 Height 5 ft 5 in in 02/26/2024 Blood pressure systolic 00 mm Hg 02/26/2024 Weight 148 lbs 02/26/2024 BMI 24.63 kg/m2 02/26/2024 Encounters Encounter Location Date Provider Diagnosis [facility] [address] [place] [address] 02/26/2024 Deven Mccallum Anemia, unspecified type D64.9 [...] Date MEDICARE OF [place] [address] [place] [address] [phone] [id number] DIAMANTEFATOU BOATENG Self - patient is the insured Medical (General) History Medical History History ICD Code Colonoscopy in 2002 with the removal of 2 tubular adenomas Colonoscopy 02/11/2008--1 tubular adenom a removed HTN Hyperlipidemia Hospitalized end of 06/13/13 with fluid retention, elevated CPK, and some renal insufficiency--due to Simvastatin and Amlodipine--he was treated and improved--he did not have a MD Denies MD,DM,CVA,Lung disease Pacemaker 02/24/2014 Colonoscopy in 08/2013--tubul ar [...]
--- OUTSIDE RECORDS SUMMARY | 2025-01-27 09:22 | XMS_ITS | Encounter Summary ---
Author Organization [facility] Address [address] [facility] [address] [place] [address] Phone Care Team Providers Care We[employer] Officer [employer] Name Role Phone Edwar Trujillo MD Primary Care Provider [phone] Encounter Details Date Type Department Care Team (Late st Contact Info) Description 06/04/2020 Orders Only [facility] [address] [place] [phone] Neal Burgess MD Stage 5 chronic kidney [...] failure documented in this encounter Care Teams Weapons Officer [employer] Relationship Specialty Start Date End Date Edwar Trujillo MD [address] [place] [address] [address] [place] PCP - General 04/26/20 documented as of this encounter
--- OUTSIDE RECORDS SUMMARY | 2025-01-27 09:23 | XMS_ITS | Clinical Summary ---
Author Organization [facility] Address [address] [place] [phone] Phone Care Team Providers Care Jawbone Breaker Name Role Phone Edwar Trujillo MD Primary Care Provider [phone] Allergies Active Allergy Reactions Criticality Noted Date [...] Encounters Date Type Department Care Team Description 01/22/2025 Treatment [facility] [address] [phone] Otto Howell MD End stage renal disease; Dependence on renal dialysis 01/17/2025 Treatment [facility] [address] [phone] Otto Howell MD End stage renal disease; Dependence on renal dialysis 01/15/2025 Orders Only [facility] [address] [phone] Otto Howell MD 01/05/2025 Treatment [facility] [address] [phone] Amandeep Gonzalez MD End stage renal disease; Dependence on renal dialysis 12/31/2024 Treatment [facility] [address] [phone] Amandeep Gonzalez MD End stage renal disease; Dependence on renal dialysis 12/24/2024 Treatment [facility] [address] [phone] Amandeep Gonzalez MD End stage renal disease; Dependence on renal dialysis 12/17/2024 Treatment [facility] [address] [phone] Amandeep Gonzalez MD End stage renal disease; Dependence on renal dialysis 12/03/2024 Treatment [facility] [address] [phone] Amandeep Gonzalez MD End stage renal disease; Dependence on renal dialysis 11/26/2024 Treatment [facility] [address] [phone] Amandeep Gonzalez MD End stage renal disease; Dependence on renal dialysis 11/19/2024 Treatment [facility] [address] [phone] Amandeep Gonzalez MD End stage renal disease; Dependence on renal dialysis 11/14/2024 Treatment [facility] [address] [phone] Amandeep Gonzalez MD End stage renal disease; Dependence on renal dialysis 11/05/2024 Treatment [facility] [address] [phone] Amandeep Gonzalez MD End stage renal disease; Dependence on renal dialysis 10/29/2024 Treatment [facility] [address] [phone] Amandeep Gonzalez MD End stage renal disease; [...] Influenza Vaccine (#1) 2024 Diabetes: Hemoglobin A1C 04/17/2025 025, 10/15/2024, 07/16/2024, Additional history exists Pneumococcal Vaccine: Peds ( 0 to 5 Years) and At-Risk Patients (6 to 49 Years) Discontinued 01/11/2018, 08/07/2013, 06/18/2013 Procedures Procedure Name Priority Date/Time Associated Diagnosis Comments ALUMINUM LEVEL Routine 01/15/2025 3:00 AM EDT HEMOGLOBIN A1C Routine 01/15/2025 3:00 AM EDT HEPATITIS C ABS W/REFLEX RNA DETECTR Routine 01/15/2025 3:00 AM EDT HEPATITIS B CORE AB TOTAL Routine 01/15/2025 3:00 AM EDT CONFIRMATION TEST HCV Routine 01/15/2025 3:00 AM EDT HEPATITIS B SURFACE ANTIGEN W/REFL CONFIRM Routine 01/15/2025 3:00 AM EDT URIC ACID Routine 01/15/2025 3:00 AM EDT TRANSFERRIN SATURATION Routine 3:00 AM EDT PROTEIN, TOTAL, SERUM Routine 01/15/2025 3:00 AM EDT LIPID PANEL Routine 01/15/2025 3:00 AM EDT ELECTROLYTE PANEL Routine 01/15/2025 3:0 0 AM EDT MAGNESIUM Routine 01/15/2025 3:00 AM EDT LIH (HC) Routine 01/15/2025 3:00 AM EDT LACTATE DEHYDROGENASE Routine 01/15/2025 3:00 AM EDT GLUCOSE, RANDOM Routine 01/15/2025 3:00 AM EDT CREATININE, SERUM Routine 01/15/2025 3:0 0 AM EDT BUN/CREATININE RATIO Routine 01/15/2025 3:00 AM EDT BILIRUBIN, TOTAL Routine 01/15/2025 3:00 AM EDT AST Routine 01/15/2025 3:00 AM EDT ALT Routine 01/15/2025 3:00 AM EDT ALKALINE PHOSPHATASE Routine 01/15/2025 3:00 AM EDT CALCIUM PHOSPHORUS PRODUCT, ADJUSTED (HC) Routine 01/15/2025 3:00 AM EDT VITAMIN D 25 HYDROXY Routine 01/15/2025 3:00 AM EDT PTH, INTACT Routine 01/15/2025 3:00 AM EDT FERRITIN Routine 01/15/2025 3:00 AM EDT HEPATITIS B SURFACE ANTIBODY QUANT Routine 01/15/2025 3:00 AM EDT KT/V NATURAL LOG, URR (HC) Routine 01/15/2025 3:00 AM EDT CBC AND DIFFERENTIAL Routine 01/15/2025 3:00 AM EDT HEMOGLOBIN Routine 01/12/2025 3:00 AM EDT HEMOGLOBIN Routine 01/07/2025 3:00 AM EDT HEMOGLOBIN [...] EDT HEMOGLOBIN Routine 10/29/2024 3:00 AM EDT from Last 3 Months Results * Confirmation Test HCV (01/15/2025 3:00 AM EDT) Hep C Ab Confirmation Not needed [facility] 01/15/2025 3:00 AM EDT 01/16/2025 12:11 PM EDT us Otto Howell MD LAB BLOOD ORDERABLES Final Result [facility] [address] [place] [address] * [facility] (01/15/2025 3:00 AM EDT) Only the most recent of3 resultswithin the time period is included. Lipemia Normal Normal [facility] Icterus Normal Normal [facility] Hemolysis Normal Normal [facility] 01/15/2025 3:00 AM EDT 01/16/2025 12:20 PM EDT us Otto Howell MD LAB HISTORICA [id number] RESULTS Final Result Performing Organization Address [facility] de Phone Number [facility] [address] [place] [address] * (ABNORMAL) Kt/V Natural Log, URR (01/15/2025 3:00 AM EDT) Only the most recent of3 resultswithin the time period is included. Treatment Time 201 min [facility] Pre-Weight, lb 74.8 kg [facility] Post-Weight, lb 72.3 kg [facility] Ultrafiltration Rate 10 <=13 mL/kg/hr [facility] Comment: Recommend achieving Ultrafiltration Rate (UFR) <=10 mL/kg/hr References: Kimberley JALLOH et al. Kidney Int. 2010; 79(2):250-257 BUN 114(H) 7 - 25 mg/dL [facility] BUN Post Dialysis 27(H) 7 - 25 mg/dL [facility] UREA REDUCTION RATIO (%) 76 >=65 % [facility] Kt/V Natural Log 1.67 >=1.2 [facility] 01/15/2025 3:00 AM EDT 01/16/2025 12:14 PM EDT us Otot Howell MD LAB HISTORICA [id number] RESULTS Final Result Performing Organization Address [facility] de Phone Number [facility] [address] [place] [address] * (ABNORMAL) Calcium Phosphorus Product, Adjusted (01/15/2025 3:00 AM EDT) Only the most recent of3 resultswithin the time period is included. Albumin 4.1 3.6 - 5.4 g/dL [facility] Calcium 8.3(L) 8.6 - 10.3 mg/dL [facility] Phosphorus, Serum 6.9(H) 2.5 - 5.0 mg/dL [facility] Ca*PO4 57.3(A) <55.0 mg2/dL2 [facility] Calcium, Adjusted Total 8.3(L) 8.6 - 10.3 mg/dL [facility] CA*PO4 CORRCTD 57.3(A) <55.0 mg2/dL2 [facility] 01/15/2025 3:00 AM EDT 01/16/2025 12:20 PM EDT us Otto Howell MD LAB HISTORICA [id number] RESULTS Final Result Performing Organization Address [facility] Co de Phone Number [facility] [address] [place] [address] * HEPATITIS C ABS W/REFLEX RNA DETECTR (01/15/2025 3:00 AM EDT) Hep C Virus Ab Non-Reacti ve Non-Reacti ve [facility] 01/15/2025 3:00 AM EDT 01/16/2025 12:20 PM EDT us Otto Howell MD LAB HISTORICA [id number] RESULTS Final Result Performing Organization Address [facility] de Phone Number [facility] [address] [place] [address] * Hepatitis B Surface Ag w/Reflex Confirmation (01/15/2025 3:00 AM EDT) Hep B Surface Antigen Negative Negative [facility] 01/15/2025 3:00 AM EDT 01/16/2025 12:20 PM EDT us Otto Howell MD LAB BLOOD ORDERABLES Final Result Performing Organization Address [facility] de Phone Number [facility] [address] [place] [address] * BUN/CREATININE RATIO (01/15/2025 3:00 AM EDT) Only the most recent of3 resultswithin the time period is included. BUN/Creatinine Ratio 11.6 <=23.0 [facility] 01/15/2025 3:00 AM EDT 01/16/2025 12:20 PM EDT us Otto Howell MD LAB HISTORICA [id number] RESULTS Final Result Performing Organization Address [facility] Co de Phone Number [facility] [address] [place] [address] * (ABNORMAL) TSAT (01/15/2025 3:00 AM EDT) Only the most recent of3 resultswithin the time period is included. Iron 128 65 - 175 ug/dL [facility] Transferrin 147(L) 215 - 365 mg/dL [facility] TIBC 206(L) 211 - 406 ug/dL [facility] Iron Saturation (TSat) 62(H) 22 - 52 % [facility] 01/15/2025 3:00 AM EDT 01/16/2025 12:20 PM EDT us Otto Howell MD LAB BLOOD ORDERABLES Final Result Performing Organization Address [facility] de Phone Number [facility] [address] [place] [address] * Hepatitis B Core Antibody, Total (01/15/2025 3:00 AM EDT) HBc Total Ab, S Negative Negative [facility] 01/15/2025 3:00 AM EDT 01/16/2025 12:20 PM EDT us Otto Howell MD LAB BLOOD ORDERABLES Final Result Performing Organization Address [facility] de Phone Number [facility] [address] [place] [address] * Aluminum level (01/15/2025 3:00 AM EDT) Aluminum 3 1 - 20 ug/L [facility] Comment: This test was developed and its performance characteristics determined by [facility] in a manner consistent with CLIA requirements. This test has not been cleared or approved by the U.S. Food and Drug Administration. 01/15/2025 3:00 AM EDT 01/16/2025 12:16 PM EDT Otto Howell MD LAB BLOOD ORDERABLES Final Result Performing Organization Address [facility] Co de Phone Number [facility] [address] [place] [address] * Vitamin D 25 Hydroxy (01/15/2025 3:00 AM EDT) Pathologist [facility] Vitamin D, 25-Hydroxy 66 30 - 100 ng/mL [facility] Comment: Status Adult Pediatric Deficient: <20 <15 Insufficient: 20-29 15-19 Sufficient: 30-100 20-100 01/15/2025 3:00 AM EDT 01/16/2025 12:20 PM EDT Otto Howell MD LAB BLOOD ORDERABLES Final Result Performing Organization Address [facility] de Phone Number [facility] [address] [place] [address] * Hepatitis B Surface Antibody (01/15/2025 3:00 AM EDT) [facility] Hep B Surface Antibody 90 mIU/mL [facility] Comment: Interpretation: <10: No Immunity >=10: Probable Immunity 01/15/2025 3:00 AM EDT 01/16/2025 12:20 PM EDT Otto Howell MD LAB BLOOD ORDERABLES Final Result Performing Organization Address [facility] de Phone Number [facility] [address] [place] [address] * (ABNORMAL) CBC and Differential (01/15/2025 3:00 AM EDT) Only the most recent of3 resultswithin the time period is included. Pathologist [facility] DIFFERENTIAL MANUAL, 2 Not Indicated [facility] White Blood Cells 6.1 4.2 - 9.1 K/uL [facility] RBC 3.26(L) 4.63 - 6.08 M/uL [facility] Hgb 10.6(L) 13.7 - 17.5 g/dL [facility] Hemoglobin x 3 31.8(L) 41.1 - 52.5 g/dL [facility] Hematocrit 32.0(L) 40.1 - 51.0 % [facility] MCV 98.2(H) 79.0 - 92.2 fL [facility] MCH 32.5(H) 25.7 - 32.2 pg [facility] MCHC 33.1 32.3 - 36.5 g/dL [facility] RDW 14.5(H) 11.6 - 14.4 % [facility] Platelets 69(L) 163 - 337 K/uL [facility] Comment:Possible platelet cl umps detected. Review result with patient history. MPV 13.1(H) 9.1 - 13.0 fL [facility] Neutrophils Relative 73.9(H) 34.0 - 67.9 % [facility] Lymphocytes Relative 12.1(L) 21.8 - 53.1 % [facility] Monocytes 10.2 5.3 - 12.2 % [facility] Eosinophils Relative 2.5 0.8 - 7.0 % [facility] Basophils Relative 0.8 0.2 - 1.2 % [facility] Immature Granulocytes 0.5 0.0 - 1.0 % [facility] 01/15/2025 3:00 AM EDT 01/16/2025 12:11 PM EDT Otto Howell MD LAB BLOOD ORDERABLES Final Result [facility] [address] [place] [address] * Uric Acid (01/15/2025 3:00 AM EDT) Uric Acid 6.6 4.4 - 7.6 mg/dL [facility] 01/15/2025 3:00 AM EDT 01/16/2025 12:20 PM EDT us Otto Howell MD LAB BLOOD ORDERABLES Final Result Performing Organization Address City/[facility] Co de Phone Number [facility] [address] [place] [address] * ALT (01/15/2025 3:00 AM EDT) Only the most recent of3 resultswithin the time period is included. ALT (SGPT) 19 10 - 49 U/L [facility] 01/15/2025 3:00 AM EDT 01/16/2025 12:20 PM EDT us Otto Howell MD LAB BLOOD ORDERABLES Final Result Performing Organization Address [facility] de Phone Number [facility] [address] [place] [address] * AST (01/15/2025 3:00 AM EDT) Only the most recent of3 resultswithin the time period is included. AST (SGOT) 21 <34 U/L [facility] 01/15/2025 3:00 AM EDT 01/16/2025 12:20 PM EDT us Otto Howell MD LAB BLOOD ORDERABLES Final Result Performing Organization Address [facility] de Phone Number [facility] [address] [place] [address] * Protein, total (01/15/2025 3:00 AM EDT) Only the most recent of3 resultswithin the time period is included. Total Protein 6.6 6.4 - 8.9 g/dL [facility] 01/15/2025 3:00 AM EDT 01/16/2025 12:20 PM EDT us Otto Howell MD LAB BLOOD ORDERABLES Final Result Performing Organization Address [facility] Co de Phone Number [facility] [address] [place] [address] * Alkaline phosphatase (01/15/2025 3:00 AM EDT) Only the most recent of3 resultswithin the time period is included. Alkaline Phosphatase 108 46 - 116 U/L [facility] 01/15/2025 3:00 AM EDT 01/16/2025 12:20 PM EDT Otto Howell MD LAB BLOOD ORDERABLES Final Result Performing Organization Address City/[facility] Co de Phone Number [facility] [address] [place] [address] * PTH, Intact (01/15/2025 3:00 AM EDT) PTH, Intact 509 160 - 721 pg/mL [facility] Comment: Suggested (KDIGO) ESRD maintenance range is two to nine times the upper normal limit (80.1 pg/mL) for the laboratory. 01/15/2025 3:00 AM EDT 01/16/2025 12:20 PM EDT Otto Howell MD LAB BLOOD ORDERABLES Final Result Performing Organization Address [facility] de Phone Number [facility] [address] [place] [address] * Magnesium (01/15/2025 3:00 AM EDT) Only the most recent of3 resultswithin the time period is included. Magnesium 2.5 1.9 - 2.7 mg/dL [facility] 01/15/2025 3:00 AM EDT 01/16/2025 12:20 PM EDT Otto Howell MD LAB BLOOD ORDERABLES Final Result Performing Organization Address City/[facility] de Phone Number [facility] [address] [place] [address] * (ABNORMAL) Lactate dehydrogenase (01/15/2025 3:00 AM EDT) Only the most recent of3 resultswithin the time period is included. LDH 251(H) 120 - 246 U/L [facility] 01/15/2025 3:00 AM EDT 01/16/2025 12:20 PM EDT Otto Howell MD LAB BLOOD ORDERABLES Final Result Performing Organization Address [facility] Co de Phone Number [facility] [address] [place] [address] * Hemoglobin A1c (01/15/2025 3:00 AM EDT) Hemoglobin A1C 4.9 <5.7 % [facility] Comment: Methodology: Enzymatic Normal: <5.7% Prediabetes: 5.7-6.4% Diabetes: >6.4% Diabetic Glucose Control Evaluation: Therapeutic action suggested at >8.0% ADA recommends a glycemic goal of <7.0% 01/15/2025 3:00 AM EDT 01/16/2025 12:11 PM EDT Otto Howell MD LAB BLOOD ORDERABLES Final Result Performing Organization Address [facility] de Phone Number [facility] [address] [place] [address] * Glucose, random (01/15/2025 3:00 AM EDT) Only the most recent of3 resultswithin the time period is included. Glucose 99 70 - 99 mg/dL [facility] Comment: ADA guidelines outline the following fasting glucose ranges: Normal: <100 Prediabetes: 100-125 Diabetes: >125 01/15/2025 3:00 AM EDT 01/16/2025 12:20 PM EDT us Otto Howell MD LAB BLOOD ORDERABLES Final Result Performing Organization Address [facility] Co de Phone Number [facility] [address] [place] [address] * (ABNORMAL) Ferritin (01/15/2025 3:00 AM EDT) Only the most recent of3 resultswithin the time period is included. Ferritin 1,215(H) 22 - 322 ng/mL [facility] 01/15/2025 3:00 AM EDT 01/16/2025 12:20 PM EDT Otto Howell MD LAB BLOOD ORDERABLES Final Result Performing Organization Address City/[facility] Co de Phone Number [facility] [address] [place] [address] * (ABNORMAL) Creatinine, serum (01/15/2025 3:00 AM EDT) Only the most recent of3 resultswithin the time period is included. Creatinine 9.84(H) 0.70 - 1.30 mg/dL [facility] 01/15/2025 3:00 AM EDT 01/16/2025 12:20 PM EDT Otto Howell MD LAB BLOOD ORDERABLES Final Result Performing Organization Address [facility] de Phone Number [facility] [address] [place] [address] * Bilirubin, total (01/15/2025 3:00 AM EDT) Only the most recent of3 resultswithin the time period is included. Total Bilirubin 0.3 0.3 - 1.2 mg/dL [facility] 01/15/2025 3:00 AM EDT 01/16/2025 12:20 PM EDT Otto Howell MD LAB BLOOD ORDERABLES Final Result Performing Organization Address City/[facility] Co de Phone Number [facility] [address] [place] [address] * (ABNORMAL) Lipid panel (01/15/2025 3:00 AM EDT) Cholesterol 91 mg/dL [facility] Comment: Optimal: <200 Borderline: 200-239 High Risk: >239 Triglycerides 92 mg/dL [facility] Comment: Optimal: <150 Borderline: 150-200 High Risk: >200 HDL 29(L) mg/dL [facility] Comment: Optimal: >59 Borderline: 40-59 High Risk: <40 LDL-Calc 44 mg/dL [facility] Comment: Optimal: <100 Borderline: 100-159 High Risk: >159 VLDL Cholesterol Bharat 18 mg/dL [facility] Comment: Optimal: <30 Borderline: 30-40 High Risk: >40 Chol/HDL Ratio 3.1 [facility] Comment: Optimal: <3.3 High Risk: >6.2 01/15/2025 3:00 AM EDT 01/16/2025 12:20 PM EDT Otto Howell MD LAB BLOOD ORDERABLES Final Result Performing Organization Address [facility] Co de Phone Number [facility] [address] [place] [address] * (ABNORMAL) Electrolyte panel (01/15/2025 3:00 AM EDT) Only the most recent of3 resultswithin the time period is included. Sodium 139 136 - 145 mEq/L [facility] Potassium 5.1(H) 3.4 - 5.0 mEq/L [facility] Chloride 99 98 - 107 mEq/L [facility] Bicarbonate (CO2) 22 21 - 31 mEq/L [facility] Anion Gap 18(H) 3 - 14 mEq/L [facility] 01/15/2025 3:00 AM EDT 01/16/2025 12:20 PM EDT Otto Howell MD LAB BLOOD ORDERABLES Final Result Performing Organization Address [facility] Co de Phone Number [facility] [address] [place] [address] * (ABNORMAL) Hemoglobin (01/12/2025 3:00 AM EDT) Only the most recent of6 resultswithin the time period is included. Hgb 10.2(L) 13.7 - 17.5 g/dL [facility] Hemoglobin x 3 30.6(L) 41.1 - 52.5 g/dL [facility] 01/12/2025 3:00 AM EDT 01/14/2025 12:53 PM EDT us Amandeep Gonzalez MD LAB BLOOD ORDERABLES Final Resu lt [facility] [address] [place] [address] from Last 3 Months Insurance Medicare Medicare Care Teams Jawbone Breaker Relationship Specialty Start Date End Date Edwar Trujillo MD [address] [place] [address] [address] [place], [place] PCP - General 04/26/20
--- OUTSIDE RECORDS SUMMARY | 2025-01-27 09:23 | XMS_ITS | Encounter Summary ---
Author Organization [facility] Address [address] [place] [address] Phone Care Team Providers Care Process Manufacturing Engineer Name Role Phone Edwar Trujillo MD Primary Care Provider [phone] Reason for Visit * Reason Comments Med Refill Encounter Details Date Type Department Care Team (Late st Contact Info) Description 09/06/2022 Refill [facility] [address] [place] [address] Anirudh Tinoco MD Social History [...] on filedocumented in this encounter Care Teams Process Manufacturing Engineer Relationship Specialty Start Date End Date Edwar Trujillo MD [address] [place] [address] [address] [place], [place] PCP - General 04/26/20 documented as of this encounter
--- OUTSIDE RECORDS SUMMARY | 2025-01-27 09:23 | XMS_ITS | Encounter Summary ---
Author Organization [facility] Address [address] [address] Phone Care Team Providers Care Turn Down Attendant Name Role Phone Edwar Trujillo MD Primary Care Provider [phone] Encounter Details Date Type Department Care Team (Late st Contact Info) Description 01/22/2025 Treatment [facility] [address] [phone] Courtney Howell MD [facility] [address] [phone] End stage renal disease; Dependence [...] encounter Miscellaneous Notes * Dialysis Note - Courtney Howell MD - 01/22/2025 12:00 AM EDT BASIC NOTE Patient: George Levy : 1940 Note Author: COURTNEY HOWELL MD Service Date: 01/22/2025 This patient was personally seen [id number] for a basic visit as part of routine monthly dialysis care for end stage renal disease. Attending Remnants Cutter: MARY JO LÓPEZ MD Dialysis Location: [facility] Schedule: Shift: 2 OVERVIEW Patient [...] Other (see comments) BP AND FLUID ASSESSMENT COMMENTS: Pt under stresses ADEQUACY ASSESSMENT Kt/V, Natural Log 1.67 (01/15/25) 1.63 (12/17/24) 1.72 (11/19/24) UREA REDUCTION RATIO (%) 76 (01/15/25) 76 (12/17/24) 77 (11/19/24) BUN 114 (01/15/25) 74 (12/17/24) 69 (11/19/24) BUN Post Dialysis 27 (01/15/25) 18 (12/17/24) 16 (11/19/24) Creatinine 9.84 (01/15/25) 7.46 (12/17/24) 7.18 (11/19/24) Bicarbonate (CO2) 22 (01/15/25) 26 (12/17/24) 31 (11/19/24) Sodium 139 (01/15/25) 141 (12/17/24) 141 (11/19/24) ANEMIA ASSESSMENT Hgb 10.6 (01/15/25) 10.2 (01/12/25) 11.2 (01/07/25) Iron Saturation (TSat) 62 (01/15/25) 37 (12/17/24) 46 (11/19/24) Ferritin 1,215 (01/15/25) 1,634 (12/17/24) 1,464 (11/19/24) Iron 128 (01/15/25) 76 (12/17/24) 98 (11/19/24) TIBC 206 (01/15/25) 204 (12/17/24) 214 (11/19/24) MCV 98.2 (01/15/25) 104.1 (12/17/24) 106.9 (11/19/24) Platelets 69 (01/15/25) 65 (12/17/24) 63 (11/19/24) BMM ASSESSMENT Calcium, Adjusted Total 8.3 01/15/25 8.4 12/17/24 8.5 11/19/24 Calcium 8.3 01/15/25 8.3 12/17/24 8.3 11/19/24 Phosphorus, Serum 6.9 01/15/25 5.2 12/17/24 4.4 11/19/24 Ca*PO4 57.3 01/15/25 43.2 12/17/24 36.5 11/19/24 PTH, Intact 509 01/15/25 262 10/15/24 291 07/16/24 Vitamin D, 25-Hydroxy 66 01/15/25 66 10/22/24 47 05/28/24 Magnesium 2.5 01/15/25 2.3 12/17/24 2.2 11/19/24 Alkaline Phosphatase 108 01/15/25 136 12/17/24 120 11/19/24 Aluminum 3 01/15/25 4 04/23/24 3 03/26/24 NUTRITION ASSESSMENT Albumin 4.1 01/15/25 3.9 12/17/24 3.8 11/19/24 Potassium 5.1 01/15/25 5.2 12/17/24 5.1 11/19/24 Hemoglobin A1C 4.9 01/15/25 4.7 10/15/24 4.8 07/16/24 ADDITIONAL LABS White Blood Cells 6.1 (01/15/25) 4.9 (12/17/24) 6.7 (11/19/24) Cholesterol 91 (01/15/25) 102 (10/15/24) 103 (07/16/24) HDL 29 (01/15/25) 39 (10/15/24) 44 (07/16/24) LDL-Calc 44 (01/15/25) 46 (10/15/24) 41 (07/16/24) Triglycerides 92 (01/15/25) 86 (10/15/24) 89 (07/16/24) Hep B Surface Antibody 90 (01/15/25) 756 (04/23/24) 667 (03/19/24) Uric Acid 6.6 (01/15/25) 6.9 (04/23/24) Signed by: COURTNEY HOWELL MD on 01/22/2025 at 12:25:08 PM Transcribed by: COURTNEY HOWELL MD on 01/22/2025 at 12:25:08 PM documented in this encounter Plan of Treatment Not on file documented as of this encounter Visit Diagnoses Diagnosis End stage renal disease Dependence on renal dialysis documented in this encounter Care Teams Turn Down Attendant Relationship Specialty Start Date End Date Edwar Trujillo MD [address] [place] PCP - General 04/26/20 documented as of this encounter
== END 2025-01-27 09:36 | disposition home or self-care (01) ==
LOC: HO.HVS 08:50
PROVIDERS: PCP Family Medicine; Visit Provider Surgery Vascular Surgery
DX: N18.6 End stage renal disease (principal); Z99.2 Dependence on renal dialysis
CPT/HCPCS: 99213

== ENCOUNTER → 2025-01-27 08:49 | Outpatient (BNVA) | payer MEDICARE, SELFPAY | PROVIDERS: PCP Family Medicine; Visit Provider Surgery Vascular Surgery | DX: N18.6 End stage renal disease (principal); Z99.2 Dependence on renal dialysis | CPT/HCPCS: 99212 ==

== ENCOUNTER 2025-03-16 12:58 | Outpatient (AMB) | payer MEDICARE, SELFPAY ==
--- OUTSIDE RECORDS SUMMARY | 2025-03-16 16:37 | XMS_ITS | Encounter Summary ---
Author Organization [facility] Address [address] [phone] Phone Care Team Providers Care Digital Designer Name Role Phone Edwar Trujillo MD Primary Care Provider [phone] Encounter Details Date Type Department Care Team (Late st Contact Info) Description 03/11/2025 Treatment [facility] [address] [phone] Courtney Howell MD [facility] [phone] End stage renal disease; Dependence [...] Dialysis Note - Courtney Howell MD - 03/11/2025 12:00 AM EST BASIC NOTE Patient: George Levy : 1940 Note Author: COURTNEY HOWELL MD Service Date: 03/11/2025 This patient was personally seen [id number] for a basic visit as part of routine monthly dialysis care for end stage renal disease. Attending Product Manager Financial Services: MARY JO LÓPEZ MD Dialysis Location: [facility] Schedule: Shift: 2 OVERVIEW Patient is stable. HOME MEDICATIONS Current [facility] Outpatient Medications acetaminophen (Tylenol 8 Hour) 650 MG 8 hr tablet as needed for pain Start Date: aspirin (ST JAMES) 81 MG EC tablet Take 1 tablet by mouth 1 (one) time each day Start Date: atorvastatin (LIPITOR) 10 MG tablet Take 1 [...] in the evening. Start Date: 04/07/2024 dilTIAZem SR (CARDIZEM SR) 120 MG 12 hr capsule Take 1 capsule by mouth at bed time Start Date: ferrous sulfate 325 (65 Fe) MG tablet Take 1 tablet by mouth 1 (one) time each day Start Date: furosemide (LASIX) 40 MG tablet TAKE ONE TABLET BY MOUTH EVERY DAY Start Date: 03/11/2024 hydrALAZINE (APRESOLINE) 50 MG tablet Take 100 mg by mouth 2 (two) times a day Start Date: 08/09/2015 labetalol (NORMODYNE) 200 MG tablet TAKE ONE TABLET BY MOUTH TWICE A DAY Start Date: 02/14/2022 Multiple Vitamins-Minerals (MULTIVITAMIN ADULT EXTRA C PO) Take 1 capsule by mouth 1 (one) time each day Start Date: Current [facility] Allergies Allergen: CARVEDILOL Reaction: Other (see comments) Allergen: CEPHALEXIN Reaction: Other (see comments) Allergen: LISINOPRIL Reaction: Other (see comments) BP AND FLUID ASSESSMENT COMMENTS: Pt under stresses ADEQUACY ASSESSMENT Kt/V, Natural Log 1.60 (02/19/25) 1.67 (01/15/25) 1.63 (12/17/24) UREA REDUCTION RATIO (%) 75 (02/19/25) 76 (01/15/25) 76 (12/17/24) BUN 72 (02/19/25) 114 (01/15/25) 74 (12/17/24) BUN Post Dialysis 18 (02/19/25) 27 (01/15/25) 18 (12/17/24) Creatinine 7.53 (02/19/25) 9.84 (01/15/25) 7.46 (12/17/24) Bicarbonate (CO2) 26 (02/19/25) 22 (01/15/25) 26 (12/17/24) Sodium 140 (02/19/25) 139 (01/15/25) 141 (12/17/24) ANEMIA ASSESSMENT Hgb 10.9 (03/05/25) 10.2 (02/19/25) 10.5 (02/05/25) Iron Saturation (TSat) 43 (02/19/25) 62 (01/15/25) 37 (12/17/24) Ferritin 1,356 (02/19/25) 1,215 (01/15/25) 1,634 (12/17/24) Iron 98 (02/19/25) 128 (01/15/25) 76 (12/17/24) TIBC 228 (02/19/25) 206 (01/15/25) 204 (12/17/24) MCV 99.4 (02/19/25) 98.2 (01/15/25) 104.1 (12/17/24) Platelets 82 (02/19/25) 69 (01/15/25) 65 (12/17/24) BMM ASSESSMENT Calcium, Adjusted Total 8.7 02/19/25 8.3 01/15/25 8.4 12/17/24 Calcium 8.7 02/19/25 8.3 01/15/25 8.3 12/17/24 Phosphorus, Serum 5.8 02/19/25 6.9 01/15/25 5.2 12/17/24 Ca*PO4 50.5 02/19/25 57.3 01/15/25 43.2 12/17/24 PTH, Intact 430 02/19/25 509 01/15/25 262 10/15/24 Vitamin D, 25-Hydroxy 66 01/15/25 66 10/22/24 47 05/28/24 Magnesium 2.5 02/19/25 2.5 01/15/25 2.3 12/17/24 Alkaline Phosphatase 98 02/19/25 108 01/15/25 136 12/17/24 Aluminum 3 01/15/25 4 04/23/24 3 03/26/24 NUTRITION ASSESSMENT Albumin 4.1 02/19/25 4.1 01/15/25 3.9 12/17/24 Potassium 5.2 02/19/25 5.1 01/15/25 5.2 12/17/24 Glucose 88 02/19/25 99 01/15/25 92 12/17/24 Hemoglobin A1C 4.9 01/15/25 4.7 10/15/24 4.8 07/16/24 ADDITIONAL LABS White Blood Cells 5.4 (02/19/25) 6.1 (01/15/25) 4.9 (12/17/24) Cholesterol 91 (01/15/25) 102 (10/15/24) 103 (07/16/24) HDL 29 (01/15/25) 39 (10/15/24) 44 (07/16/24) LDL-Calc 44 (01/15/25) 46 (10/15/24) 41 (07/16/24) Triglycerides 92 (01/15/25) 86 (10/15/24) 89 (07/16/24) Hep B Surface Antibody 90 (01/15/25) 756 (04/23/24) 667 (03/19/24) Uric Acid 6.6 (01/15/25) 6.9 (04/23/24) Chol/HDL Ratio 3.1 (01/15/25) 2.6 (10/15/24) 2.3 (07/16/24) ALT (SGPT) 18 (02/19/25) 19 (01/15/25) 34 (12/17/24) AST (SGOT) 13 (02/19/25) 21 (01/15/25) 21 (12/17/24) Signed by: COURTNEY HOWELL MD on 03/11/2025 at 12:51:32 PM Transcribed by: COURTNEY HOWELL MD on 03/11/2025 at 12:51:32 PM documented in this encounter Plan of Treatment Not on file documented as of this encounter Visit Diagnoses Diagnosis End stage renal disease Dependence on renal dialysis documented in this encounter Care Teams Digital Designer Relationship Specialty Start Date End Date Edwar Trujillo MD [address] [place] [address] [facility]IN[facility] [place] PCP - General 04/26/20 documented as of this encounter
--- OUTSIDE RECORDS SUMMARY | 2025-03-16 16:37 | XMS_ITS | Clinical Summary ---
Author Organization [facility] Address [address] [place] [phone] Phone Care Team Providers Care Sped Teacher Name Role Phone Edwar Trujillo MD Primary Care Provider [phone] Allergies Active Allergy Reactions Criticality Noted Date [...] Encounters Date Type Department Care Team Description 03/11/2025 Treatment [facility] [address] [phone] Otto Howell MD End stage renal disease; Dependence on renal dialysis 03/07/2025 Treatment [facility] [address] [phone] Otto Howell MD End stage renal disease; Dependence on renal dialysis 02/28/2025 Treatment [facility] [address] [phone] Otto Howell MD End stage renal disease; Dependence on renal dialysis 02/17/2025 Treatment [facility] [address] [phone] Otto Howell MD End stage renal disease; Dependence on renal dialysis 02/10/2025 Treatment [facility] [address] [phone] Otto Howell MD End stage renal disease; Dependence on renal dialysis 01/31/2025 Treatment [facility] [address] [phone] Otto Howell MD End stage renal disease; Dependence on renal dialysis 01/22/2025 Treatment [facility] [address] [phone] Otto Howell MD End stage renal disease; Dependence on renal dialysis 01/17/2025 Treatment [facility] [address] [phone] Otto Howell MD End stage renal disease; Dependence on renal dialysis 01/15/2025 Orders Only [facility] [address] [phone] Otto Howell MD 01/05/2025 Treatment [facility] [address] [phone] Amandeep Gonzalez MD End stage renal disease; Dependence on renal dialysis 12/31/2024 Treatment [facility] [address] [phone] Amandeep Gonzalez MD End stage renal disease; Dependence on renal dialysis 12/24/2024 Treatment [facility] [address] [phone] Amandeep Gonzalez MD End stage renal disease; Dependence on renal dialysis 12/17/2024 Treatment [facility] [address] [phone] Amandeep Gonzalez MD End stage renal disease; [...] Priority Date/Time Associated Diagnosis Comments HEMOGLOBIN Routine 03/05/2025 3:00 AM EST HEPATITIS B SURFACE ANTIGEN W/REFL CONFIRM Routine 02/19/2025 3:00 AM EST PROTEIN, TOTAL, SERUM Routine 02/19/2025 3:00 AM EST LIH (HC) Routine 02/19/2025 3:00 AM EST MAGNESIUM Routine 02/19/2025 3:00 AM EST LACTATE DEHYDROGENASE Routine 02/19/2025 3:00 AM EST TRANSFERRIN SATURATION Routine 3:00 AM EST ELECTROLYTE PANEL Routine 02/19/2025 3:0 0 AM EST CREATININE, SERUM Routine 02/19/2025 3:0 0 AM EST AST Routine 02/19/2025 3:00 AM EST GLUCOSE, RANDOM Routine 02/19/2025 3:00 AM EST BILIRUBIN, TOTAL Routine 02/19/2025 3:00 AM EST BUN/CREATININE RATIO Routine 02/19/2025 3:00 AM EST ALT Routine 02/19/2025 3:00 AM EST ALKALINE PHOSPHATASE Routine 02/19/2025 3:00 AM EST CALCIUM PHOSPHORUS PRODUCT, ADJUSTED (HC) Routine 02/19/2025 3:00 AM EST FERRITIN Routine 02/19/2025 3:00 AM EST PTH, INTACT Routine 02/19/2025 3:00 AM EST KT/V NATURAL LOG, URR (HC) Routine 02/19/2025 3:00 AM EST CBC AND DIFFERENTIAL Routine 02/19/2025 3:00 AM EST HEMOGLOBIN Routine 02/05/2025 3:00 AM EDT HEMOGLOBIN Routine 01/31/2025 3:00 AM EDT COLLECTION DATE (HC) Routine 01/31/2025 3:00 AM EDT HEMOGLOBIN Routine 01/29/2025 3:00 AM EDT ALUMINUM LEVEL Routine 01/15/2025 3:00 AM EDT [...] URR (HC) Routine 12/17/2024 3:00 AM EDT from Last 3 Months Results * (ABNORMAL) Hemoglobin (03/05/2025 3:00 AM EST) Only the most recent of7 resultswithin the time period is included. Hgb 10.9(L) 13.7 - 17.5 g/dL [facility] Hemoglobin x 3 32.7(L) 41.1 - 52.5 g/dL [facility] 03/05/2025 3:00 AM EST 03/06/2025 1:38 PM EST us Otto Howell MD LAB BLOOD ORDERABLES Final Result Performing Organization Address [facility] Co de Phone Number [facility]PS [facility] [address] [place] [address] * LIH (02/19/2025 3:00 AM EST) Only the most recent of3 resultswithin the time period is included. Lipemia Normal Normal [facility] Icterus Normal Normal [facility] Hemolysis Normal Normal [facility] 02/19/2025 3:00 AM EST 02/20/2025 3:35 PM EST us Otto Howell MD LAB HISTORICA [id number] RESULTS Final Result Performing Organization Address [facility] de Phone Number [facility] [address] [place] [address] * (ABNORMAL) Kt/V Natural Log, URR (02/19/2025 3:00 AM EST) Only the most recent of3 resultswithin the time period is included. Pathologist [facility] Treatment Time 173 min [facility] Pre-Weight, lb 74.8 kg [facility] Post-Weight, lb 72.2 kg [facility] Ultrafiltration Rate 12 <=13 mL/kg/hr [facility] Comment: Recommend achieving Ultrafiltration Rate (UFR) <=10 mL/kg/hr References: Kimberley JALLOH et al. Kidney Int. 2010; 79(2):250-257 BUN 72(H) 7 - 25 mg/dL [facility] BUN Post Dialysis 18 7 - 25 mg/dL [facility] UREA REDUCTION RATIO (%) 75 >=65 % [facility] Kt/V Natural Log 1.60 >=1.2 [facility] 02/19/2025 3:00 AM EST 02/20/2025 3:30 PM EST us Otto Howell MD LAB HISTORICA [id number] RESULTS Final Result Performing Organization Address [facility] Co de Phone Number [facility] [address] [place] [address] * (ABNORMAL) Calcium Phosphorus Product, Adjusted (02/19/2025 3:00 AM EST) Only the most recent of3 resultswithin the time period is included. Albumin 4.1 3.6 - 5.4 g/dL [facility] Calcium 8.7 8.6 - 10.3 mg/dL [facility] Phosphorus, Serum 5.8(H) 2.5 - 5.0 mg/dL [facility] Ca*PO4 50.5 <55.0 mg2/dL2 [facility] Calcium, Adjusted Total 8.7 8.6 - 10.3 mg/dL [facility] CA*PO4 CORRCTD 50.5 <55.0 mg2/dL2 [facility] 02/19/2025 3:00 AM EST 02/20/2025 3:35 PM EST us Otto Howell MD LAB HISTORICA [id number] RESULTS Final Result Performing Organization Address [facility] Co de Phone Number [facility] [address] [place] [address] * Hepatitis B Surface Ag w/Reflex Confirmation (02/19/2025 3:00 AM EST) Only the most recent of2 resultswithin the time period is included. Pathologist [facility] Hep B Surface Antigen Negative Negative [facility] 02/19/2025 3:00 AM EST 02/20/2025 3:35 PM EST Otto Howell MD LAB BLOOD ORDERABLES Final Result Performing Organization Address [facility] Co de Phone Number [facility] [address] [place] [address] * BUN/CREATININE RATIO (02/19/2025 3:00 AM EST) Only the most recent of3 resultswithin the time period is included. Pathologist [facility] BUN/Creatinine Ratio 9.6 <=23.0 [facility] 02/19/2025 3:00 AM EST 02/20/2025 3:35 PM EST us Otto Howell MD LAB HISTORICA [id number] RESULTS Final Result Performing Organization Address [facility] de Phone Number [facility] [address] [place] [address] * (ABNORMAL) TSAT (02/19/2025 3:00 AM EST) Only the most recent of3 resultswithin the time period is included. Pathologist [facility] Iron 98 65 - 175 ug/dL [facility] Transferrin 163(L) 215 - 365 mg/dL [facility] TIBC 228 211 - 406 ug/dL [facility] Iron Saturation (TSat) 43 22 - 52 % [facility] 02/19/2025 3:00 AM EST 02/20/2025 3:35 PM EST Otto Howell MD LAB BLOOD ORDERABLES Final Result Performing Organization Address [facility] de Phone Number [facility] [address] [place] [address] * (ABNORMAL) CBC and Differential (02/19/2025 3:00 AM EST) Only the most recent of3 resultswithin the time period is included. Pathologist [facility] DIFFERENTIAL MANUAL, 2 Not Indicated [facility] White Blood Cells 5.4 4.2 - 9.1 K/uL [facility] RBC 3.19(L) 4.63 - 6.08 M/uL [facility] Hgb 10.2(L) 13.7 - 17.5 g/dL [facility] Hemoglobin x 3 30.6(L) 41.1 - 52.5 g/dL [facility] Hematocrit 31.7(L) 40.1 - 51.0 % [facility] MCV 99.4(H) 79.0 - 92.2 fL [facility] MCH 32.0 25.7 - 32.2 pg [facility] MCHC 32.2(L) 32.3 - 36.5 g/dL [facility] RDW 14.6(H) 11.6 - 14.4 % [facility] Platelets 82(L) 163 - 337 K/uL [facility] Comment:Possible platelet cl umps detected. Review result with patient history. MPV 12.8 9.1 - 13.0 fL [facility] Neutrophils Relative 71.2(H) 34.0 - 67.9 % [facility] Lymphocytes Relative 12.9(L) 21.8 - 53.1 % [facility] Monocytes 12.2 5.3 - 12.2 % [facility] Eosinophils Relative 2.2 0.8 - 7.0 % [facility] Basophils Relative 1.1 0.2 - 1.2 % [facility] Immature Granulocytes 0.4 0.0 - 1.0 % [facility] 02/19/2025 3:00 AM EST 02/20/2025 3:18 PM EST us Otto Howell MD LAB BLOOD ORDERABLES Final Result Performing Organization Address City/[facility] Co de Phone Number [facility] [address] [place] [address] * ALT (02/19/2025 3:00 AM EST) Only the most recent of3 resultswithin the time period is included. ALT (SGPT) 18 10 - 49 U/L [facility] 02/19/2025 3:00 AM EST 02/20/2025 3:35 PM EST Otto Howell MD LAB BLOOD ORDERABLES Final Result [facility] [address] [place] [address] * AST (02/19/2025 3:00 AM EST) Only the most recent of3 resultswithin the time period is included. AST (SGOT) 13 <34 U/L [facility] 02/19/2025 3:00 AM EST 02/20/2025 3:35 PM EST us Otto Howell MD LAB BLOOD ORDERABLES Final Result Performing Organization Address [facility] de Phone Number [facility] [address] [place] [address] * Protein, total (02/19/2025 3:00 AM EST) Only the most recent of3 resultswithin the time period is included. Total Protein 6.6 6.4 - 8.9 g/dL [facility] 02/19/2025 3:00 AM EST 02/20/2025 3:35 PM EST Otto Howell MD LAB BLOOD ORDERABLES Final Result Performing Organization Address [facility] Phone Number [facility] [address] [place] [address] * Alkaline phosphatase (02/19/2025 3:00 AM EST) Only the most recent of3 resultswithin the time period is included. Alkaline Phosphatase 98 46 - 116 U/L [facility] 02/19/2025 3:00 AM EST 02/20/2025 3:35 PM EST us Otto Howell MD LAB BLOOD ORDERABLES Final Result Performing Organization Address [facility] Phone Number [facility] [address] [place] [address] * PTH, Intact (02/19/2025 3:00 AM EST) Only the most recent of2 resultswithin the time period is included. PTH, Intact 430 160 - 721 pg/mL [facility] Comment: Suggested (KDIGO) ESRD maintenance range is two to nine times the upper normal limit (80.1 pg/mL) for the laboratory. 02/19/2025 3:00 AM EST 02/20/2025 3:35 PM EST us Otto Howell MD LAB BLOOD ORDERABLES Final Result Performing Organization Address [facility] de Phone Number [facility] [address] [place] [address] * Magnesium (02/19/2025 3:00 AM EST) Only the most recent of3 resultswithin the time period is included. Magnesium 2.5 1.9 - 2.7 mg/dL [facility] 02/19/2025 3:00 AM EST 02/20/2025 3:35 PM EST Otto Howell MD LAB BLOOD ORDERABLES Final Result Performing Organization Address [facility] Co de Phone Number [facility] [address] [place] [address] * Lactate dehydrogenase (02/19/2025 3:00 AM EST) Only the most recent of3 resultswithin the time period is included. LDH 215 120 - 246 U/L [facility] 02/19/2025 3:00 AM EST 02/20/2025 3:35 PM EST Otto Howell MD LAB BLOOD ORDERABLES Final Result Performing Organization Address [facility] Phone Number [facility] [address] [place] [address] * Glucose, random (02/19/2025 3:00 AM EST) Only the most recent of3 resultswithin the time period is included. Glucose 88 70 - 99 mg/dL [facility] Comment: ADA guidelines outline the following fasting glucose ranges: Normal: <100 Prediabetes: 100-125 Diabetes: >125 02/19/2025 3:00 AM EST 02/20/2025 3:35 PM EST Otto Howell MD LAB BLOOD ORDERABLES Final Result Performing Organization Address [facility] Co de Phone Number [facility] [address] [place] [address] * (ABNORMAL) Ferritin (02/19/2025 3:00 AM EST) Only the most recent of3 resultswithin the time period is included. Ferritin 1,356(H) 22 - 322 ng/mL [facility] 02/19/2025 3:00 AM EST 02/20/2025 3:35 PM EST Otto Howell MD LAB BLOOD ORDERABLES Final Result Performing Organization Address City/[facility] Co de Phone Number [facility] [address] [place] [address] * (ABNORMAL) Creatinine, serum (02/19/2025 3:00 AM EST) Only the most recent of3 resultswithin the time period is included. Creatinine 7.53(H) 0.70 - 1.30 mg/dL [facility] 02/19/2025 3:00 AM EST 02/20/2025 3:35 PM EST Otto oHwell MD LAB BLOOD ORDERABLES Final Result Performing Organization Address [facility] Co de Phone Number [facility] [address] [place] [address] * Bilirubin, total (02/19/2025 3:00 AM EST) Only the most recent of3 resultswithin the time period is included. Total Bilirubin 0.5 0.3 - 1.2 mg/dL [facility] 02/19/2025 3:00 AM EST 02/20/2025 3:35 PM EST Otto Howell MD LAB BLOOD ORDERABLES Final Result Performing Organization Address [facility] Co de Phone Number [facility] [address] [place] [address] * (ABNORMAL) Electrolyte panel (02/19/2025 3:00 AM EST) Only the most recent of3 resultswithin the time period is included. Sodium 140 136 - 145 mEq/L [facility] Potassium 5.2(H) 3.4 - 5.0 mEq/L [facility] Chloride 99 98 - 107 mEq/L [facility] Bicarbonate (CO2) 26 21 - 31 mEq/L [facility] Anion Gap 15(H) 3 - 14 mEq/L [facility] 02/19/2025 3:00 AM EST 02/20/2025 3:35 PM EST us Otto Howell MD LAB BLOOD ORDERABLES Final Result Performing Organization Address [facility] de Phone Number [facility] [address] [place] [address] * Collection Date (01/31/2025 3:00 AM EDT) Collection Date See Comment [facility] Comment: Patient sample received may exceed specimen stability, based on the collection date electronically provided. When reviewing patient results, verify collection information and consider specimen stability before acting on any critical or panic results. 01/31/2025 3:00 AM EDT us Otto Howell MD LAB HISTORICA [id number] RESULTS Final Result Performing Organization Address [facility] de Phone Number [facility] [address] [place] [address] * Confirmation Test HCV (01/15/2025 3:00 AM EDT) Hep C Ab Confirmation Not needed [facility] 01/15/2025 3:00 AM EDT 01/16/2025 12:11 PM EDT Otto Howell MD LAB BLOOD ORDERABLES Final Result Performing Organization Address [facility] de Phone Number [facility] [address] [place] [address] * HEPATITIS C ABS W/REFLEX RNA DETECTR (01/15/2025 3:00 AM EDT) Hep C Virus Ab Non-Reacti ve Non-Reacti ve [facility] 01/15/2025 3:00 AM EDT 01/16/2025 12:20 PM EDT us Otto Howell MD LAB HISTORICA [id number] RESULTS Final Result Performing Organization Address [facility] Co de Phone Number [facility] [address] [place] [address] * Hepatitis B Core Antibody, Total (01/15/2025 3:00 AM EDT) HBc Total Ab, S Negative Negative [facility] 01/15/2025 3:00 AM EDT 01/16/2025 12:20 PM EDT Otto Howell MD LAB BLOOD ORDERABLES Final Result Performing Organization Address [facility] de Phone Number [facility] [address] [place] [address] * Aluminum level (01/15/2025 3:00 AM EDT) Aluminum 3 1 - 20 ug/L [facility] Comment: This test was developed and its performance characteristics determined by [facility] in a manner consistent with CLIA requirements. This test has not been cleared or approved by the U.S. Food and Drug Administration. 01/15/2025 3:00 AM EDT 01/16/2025 12:16 PM EDT us Otto Howell MD LAB BLOOD ORDERABLES Final Result Performing Organization Address [facility] de Phone Number [facility] [address] [place] [address] * Vitamin D 25 Hydroxy (01/15/2025 3:00 AM EDT) Vitamin D, 25-Hydroxy 66 30 - 100 ng/mL [facility] Comment: Status Adult Pediatric Deficient: <20 <15 Insufficient: 20-29 15-19 Sufficient: 30-100 20-100 01/15/2025 3:00 AM EDT 01/16/2025 12:20 PM EDT us Otto Howell MD LAB BLOOD ORDERABLES Final Result Performing Organization Address [facility] de Phone Number [facility] [address] [place] [address] * Hepatitis B Surface Antibody (01/15/2025 3:00 AM EDT) Hep B Surface Antibody 90 mIU/mL [facility] Comment: Interpretation: <10: No Immunity >=10: Probable Immunity 01/15/2025 3:00 AM EDT 01/16/2025 12:20 PM EDT us Otto Howell MD LAB BLOOD ORDERABLES Final Result Performing Organization Address [facility] de Phone Number [facility] [address] [place] [address] * Uric Acid (01/15/2025 3:00 AM EDT) Uric Acid 6.6 4.4 - 7.6 mg/dL [facility] 01/15/2025 3:00 AM EDT 01/16/2025 12:20 PM EDT us Otto Howell MD LAB BLOOD ORDERABLES Final Result Performing Organization Address [facility] de Phone Number [facility] [address] [place] [address] * Hemoglobin A1c (01/15/2025 3:00 AM EDT) Hemoglobin A1C 4.9 <5.7 % [facility] Comment: Methodology: Enzymatic Normal: <5.7% Prediabetes: 5.7-6.4% Diabetes: >6.4% Diabetic Glucose Control Evaluation: Therapeutic action suggested at >8.0% ADA recommends a glycemic goal of <7.0% 01/15/2025 3:00 AM EDT 01/16/2025 12:11 PM EDT Otto Howell MD LAB BLOOD ORDERABLES Final Result Performing Organization Address [facility] Co de Phone Number [facility] [address] [place] [address] * (ABNORMAL) Lipid panel (01/15/2025 3:00 AM [...] BLOOD ORDERABLES Final Result Performing Organization Address [facility] Co de Phone Number [facility] [address] [place] [address] from Last 3 Months [place] [id number] Care Teams Sped Teacher Relationship Specialty Start Date End Date Edwar Trujillo MD [address] [place] [address] [address] ERICA LEDESMA PCP - General 04/26/20
--- OUTSIDE RECORDS SUMMARY | 2025-03-16 16:37 | XMS_ITS | Encounter Summary ---
Author Organization [facility] Address [address] [facility] [address] [place] [address] Phone Care Team Providers Care [employer] Supervisor Name Role Phone Edwar Trujillo MD Primary Care Provider [phone] Encounter Details Date Type Department Care Team (Late st Contact Info) Description 06/04/2020 Orders Only [facility] [address] [place] [phone] Neal Burgess MD Stage 5 chronic kidney [...] failure documented in this encounter Care Teams [employer] [place] Supervisor Relationship Specialty Start Date End Date Edwar Trujillo MD [address] [place] [address] [address] [place] PCP - General 04/26/20 documented as of this encounter
--- OUTSIDE RECORDS SUMMARY | 2025-03-16 16:38 | XMS_ITS | Encounter Summary ---
Author Organization [facility] Address [address] [place] [address] Phone Care Team Providers Care Tar Roofer Name Role Phone Edwar Trujillo MD Primary Care Provider [phone] Reason for Visit * Reason Comments Med Refill Encounter Details Date Type Department Care Team (Late st Contact Info) Description 09/06/2022 Refill [facility] [address] [place] [address] Anirudh Tinoco MD [address] [place] [id number] Social History Tobacco Use Types Packs/Day Years [...] on filedocumented in this encounter Care Teams Tar Roofer Relationship Specialty Start Date End Date Edwar Trujillo MD [address] [place] [address] [address] [place], [place] PCP - General 04/26/20 documented as of this encounter
--- NOTE | 2025-03-22 14:18 | MHC.OFFVIS ---
Intake Visit Reasons: device ck only dr lowry pt Allergies cephalexin (From KEFLEX) Allergy (Severe, Verified 01/27/25 09:01) ANGIO EDEMA lisinopril (LISINOPRIL) Allergy (Severe, Verified 01/27/25 09:01) FACIAL EDEMA simvastatin Allergy (Severe, Verified 01/27/25 09:01) renal insufficiency amlodipine Allergy (Mild, Verified 01/27/25 09:01) renal insuff in combo w/ statin rx PFSH Medical History Encounter for pacemaker at end of battery life Hyperlipidemia Avascular necrosis of bone of right hip Presence of arterial-venous shunt (for dialysis) History of transfusion of packed red blood cells ESRD (end stage renal disease) on dialysis Normally functioning cardiac pacemaker present Essential hypertension Valvular heart disease Chronic heart failure with preserved ejection fraction (HFpEF) Pulmonary hypertension Arthritis Anemia NAVA (dyspnea on exertion) Rhabdomyolysis due to statin therapy Chronic kidney disease Diabetes Atherosclerotic cardiovascular disease Aortic valvular disease Pacemaker CHF (congestive heart failure) HTN (hypertension) Surgical History 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, 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) History of cardiac catheterization (~08/2020) History of tonsillectomy Status cardiac pacemaker S/P excision of lipoma Hx of colonoscopy Family History Father Stroke Mother Stroke Diabetes Social History Household Members: Spouse Housing: Apartment Are you a primary infant childcare provider to a significant other at home: No Do you presently have visiting nurse or other home services: Yes (elder services, meals on wheels) Alcohol intake: current Alcohol intake frequency: former alcohol drinker Alcohol type: hard liquor Patient Tobacco Use Status: Never used Tobacco e-Cigarette/Vaping Use: Never Used Advance Directives Date on File: 04/26/20 service: Yes Current occupational status: retired Current occupation: rt handed Office Procedures Cardiac Device Check Cardiac Device Check Details: Date of service 03/16/2025. Dual-chamber pacemaker, programmed DDD. Battery status 11 years. Turned on auto capture. Normal lead parameters. Atrial pacing < 1%. Ventricular pacing > 99%. Overall, normal device function. [address]-[place] Cardiac Device Check, pacemaker dual lead Procedure code (CPT) selection complete Assessment & Plan Assessment & Plan (1) Pacemaker: Comment: - follow up with sole edge inker machine for pacemaker battery replacement. Code(s): Z95.0 - Presence of cardiac pacemaker Category: Medical (2) Heart block: Code(s): I45.9 - Conduction disorder, unspecified Category: Medical Plan x Coding Level of Care Code Procedure Only Diagnoses Pacemaker Z95.0 Heart block I45.9 CPT Codes Cardiac Device Check - Cardiac Device 2: 50645-OD Cardiac Device Check, pacemaker dual lead ([id number])
== END 2025-03-16 14:16 | disposition home or self-care (01) ==
LOC: HO.HCS 12:59
PROVIDERS: PCP Family Medicine; Visit Provider Internal Medicine
DX: I45.9 Conduction disorder, unspecified (principal); Z95.0 Presence of cardiac pacemaker
CPT/HCPCS: 93280

== ENCOUNTER → 2025-03-16 12:58 | Outpatient (BNVA) | payer MEDICARE, SELFPAY | PROVIDERS: PCP Family Medicine; Visit Provider Internal Medicine | DX: Z45.010 Encounter for checking and testing of cardiac pacemaker pulse generator [battery] (principal) | CPT/HCPCS: 93280 ==